=== PATIENT | male | born 1980 | race Caucasian/White ===

== ENCOUNTER 2025-02-19 08:21 | Emergency (ER) | payer OTHER, SELFPAY ==
[2025-02-19] VITALS (7 sets, daily range): BP systolic 118–197; BP diastolic 84–120; PULSE 80–101; RESP 12–18; TEMP 36.4; O2SAT 93–98
--- NOTE | 2025-02-19 08:24 | XR_ITS ---
WS: [id number] Exam: XR chest 1V portable [id number] Date/Time of Exam: 02/19/2025 8:37 AM Reason For Exam: cp No priors. Lungs are clear and fully inflated. Normal cardiomediastinal silhouette. No pleural effusion. Right-sided PICC line ends in the lower one third of the SVC in good position. Normal bony structures. XR/XR chest 1V portable [id number] IMPRESSION: 1. No acute cardiopulmonary finding. 2. Right-sided PICC line in satisfactory position.
--- NOTE | 2025-02-19 08:24 | ECG_ITS ---
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
--- NOTE | 2025-02-19 08:34 | CT_ITS ---
WS: [id number] CT ABDOMEN AND PELVIS NONCONTRAST HISTORY: flank pain, left-sided pain. History states acute renal injury and prostate abscess. TECHNIQUE: Imaging performed through the abdomen and pelvis. Coronal and sagittal reformats are submitted. All CT scans at [facility] use at least one of these dose optimization techniques: automated exposure control; mA and/or kV adjustment per patient size (includes targeted exams where dose is matched to clinical indication); or iterative reconstruction. DLP: 593.32 mGy.cm COMPARISON: None available. Lower thorax: Lung bases are clear. Visualized heart is normal. Small hiatal hernia. Liver: Liver is slightly enlarged. Gallbladder: Mild gallbladder hydrops. No adjacent inflammation. No wall thickening identified on this unenhanced exam. Pancreas: Normal size and attenuation. Normal pancreatic duct. No pancreatitis or mass. Spleen: 14.5 cm in length. Mildly enlarged. Adrenal glands: Normal. No mass. Right kidney: 14.3 cm in length. Markedly enlarged kidney with mild perinephric stranding. Loss of the normal cortical medullary junction. Renal pelvis is not significantly dilated. There is mild periureteral stranding. Left kidney: 14.9 cm in length. Markedly enlarged kidney with perinephric stranding. Loss of the normal cortical medullary junction. Low-attenuation nodule from the posterior kidney measures 1.5 cm. No hydronephrosis. Mild periureteral stranding without dilatation. Aorta: Mild atherosclerosis abdominal aorta with no aneurysm. Calcifications continue into the iliac arteries and mesenteric arteries. Diffuse mesenteric edema. Small shotty retroperitoneal lymph nodes. The largest lymph node on the LEFT at the level of the renal vein measures 1.3 cm. Aortocaval lymph node 1.0 cm. Small amount of free fluid within the pelvis. GI tract: Stomach is distended with fluid. No small bowel obstruction. Diffuse constipation. No evidence for appendicitis. Abdominal wall: Soft tissue anasarca. Very tiny umbilical hernia contains fat. Pelvis: Moderately well distended urinary bladder with mild diffuse wall thickening. Decreased attenuation in the the prostate gland with the largest on the LEFT measuring 2.1 x 1.5 cm. Small bilateral inguinal lymph nodes. There is a superficial nodule on the RIGHT measuring 1.3 cm which may be a lymph node or sebaceous cyst. Urethral portion of the prostate gland is of decreased attenuation. Osseous structures: Unremarkable. CT/CT kidney stone [id number] IMPRESSION: 1. Markedly enlarged edematous kidneys with loss of the normal corticomedullar y junction. Differential includes diabetic nephropathy, bilateral acute pyelone phritis, acute glomerulonephritis and/or interstitial nephritis. 2. No renal obstruction is evident. 3. Diffuse soft tissue anasarca and a small amount of ascites in the pelvis. 4. Retroperitoneal shotty appearing lymph nodes are slightly prominent. These are probably reactive. 5. Decreased attenuation in the LEFT prostate measures 2.1 x 1.5 cm. Suspect p rostate abscess. 6. Mild gallbladder hydrops, probably due to fasting state. No adjacent inflam mation or wall thickening.
--- NOTE | 2025-02-19 08:35 | W.ED.NAVMDI ---
HPI - Nausea/Vomiting/Diarrhea General: Chief complaint: Nausea/Vomiting/Diarrhea Stated complaint: cp Time Seen by Provider: 02/19/25 08:23 Source: patient Mode of arrival: ambulatory Limitations: no limitations History of Present Illness: 44-year-old male who had a recent mission to [place] he was discharged on Monday states that he had had anemia that received blood transfusions he also had acute kidney injury and became septic from a prostate abscess. He has a PICC line in place states has been redoing Rocephin at home he states that overnight has been having nausea vomiting and feeling weak he has had some slight chest pains as well denies any fevers denies any worse improved factors. Associated nausea: Yes Associated symtoms: Reports chest pain and nausea; Denies headache(s) Related Data Home Medications ?Medication ?Instructions ?Recorded ?Confirmed ceftriaxone 2 gram intravenous 2 g IV DAILY 02/19/25 02/19/25 solution ezetimibe 10 mg tablet (Zetia) 10 mg PO DAILY 02/19/25 02/19/25 glucagon 1 mg/0.2 mL subcutaneous 1 mg SUBCUT PRN PRN low blood sugar 02/19/25 02/19/25 syringe (Gvoke PFS 2-Pack) insulin aspart U-100 100 unit/mL See Rx Instructions .Route .COMPLEX 02/19/25 02/19/25 (3 mL) subcutaneous pen insulin glargine 100 unit/mL (3 22 unit SUBCUT DAILY 02/19/25 02/19/25 mL) subcutaneous pen (Lantus Solostar U-100 Insulin) metformin 500 mg tablet 500 mg PO BID 02/19/25 02/19/25 metoclopramide HCl 5 mg tablet 5 mg PO TID PRN Nausea And Vomiting 02/19/25 02/19/25 pantoprazole 40 mg tablet,delayed 40 mg PO QAM 02/19/25 02/19/25 release Previous Rx's ?Medication ?Instructions ?Recorded prochlorperazine maleate 10 mg 10 mg PO Q8H PRN nausea and 02/19/25 tablet (Compazine) vomiting #20 tabs Allergies Allergy/AdvReac Type Severity Reaction Status Date / Time No Known Allergies Allergy Verified 11/11/23 10:32 Review of Systems Const: Denies: fever(s), chills, body aches or change in appetite ENMT: Denies: throat pain or dental pain Card: Reports: chest pain Resp: Denies: dyspnea GI: Reports: abdominal pain, nausea and vomiting; Denies: diarrhea Musc: Denies: neck pain or back pain Skin/Breast: Denies: rash Neuro: Denies: headache(s) PFSH ED PFSH: Social History Smoking and tobacco/nicotine status: current every day tobacco/nicotine user Alcohol intake: never Physical Exam Const: COMMON NORMALS: patient oriented x3 HENMT: COMMON NORMALS: normocephalic and atraumatic HEAD & SCALP: normocephalic and atraumatic Eye: COMMON NORMALS: Equal, round and reactive pupils present and EOMs intact bilaterally PUPIL: Yes Equal, round and reactive pupils present Neck/C-Spine: COMMON NORMALS: full ROM and supple Chest: COMMONS NORMALS: normal inspection of the chest and normal palpation of entire chest wall Resp: COMMON NORMALS: normal respiratory effort, No retractions, No use of accessory muscles and clear to auscultation bilaterally AUSCULTATION: clear to auscultation bilaterally Cardio: COMMON NORMALS: regular rate, regular rhythm and No murmurs present (Cardio) RATE: regular rate RHYTHM: regular rhythm GI: COMMON NORMALS: Normal to inspection, nondistended, normoactive bowel sounds present, Soft to palpation, non-tender and no masses PALPATION: Yes Soft to palpation Extremity: COMMON NORMALS: normal to inspection and full ROM Neuro: COMMON NORMALS: patient oriented x3, moves all extremities and no focal motor deficits Psych: COMMON NORMALS: mental status grossly normal, Normal thought process present and cooperative THOUGHT PROCESS: Normal thought process present Skin: COMMON NORMALS: no rashes or lesions noted and no wounds GENERAL SKIN EXAM: no rashes or lesions noted Course Vital Signs: Vital signs: Vital Signs Temperature 97.6 F 02/19/25 08:25 Pulse Rate 80 02/19/25 12:49 Respiratory Rate 18 02/19/25 12:49 Blood Pressure 118/85 02/19/25 12:49 Pulse Oximetry 98 02/19/25 12:49 Oxygen Delivery Me thod Room Air 02/19/25 10:00 MDM - Nausea/Vomiting/Diarrhea Medical Decision Making Patient presents here with nausea vomiting his creatinine is improved from his recent admission white counts normal no signs of new infection he feels much improved like to go home we will prescribe him Compazine he is to follow-up with his doctors at [place] he is to continue his antibiotics at home return if worsening Medical Records I reviewed the patient's medical records. Lab Data I reviewed the patient's lab results. 02/19/25 08:40 02/19/25 08:40 Radiology Impressions Chest X-Ray 02/19/25 08:24 IMPRESSION: 1. No acute cardiopulmonary finding. 2. Right-sided PICC line in satisfactory position. Abdomen/Pelvis CT 02/19/25 08:34 IMPRESSION: 1. Markedly enlarged edematous kidneys with loss of the normal corticomedullary junction. Differential includes diabetic nephropathy, bilateral acute pyelonephritis, acute glomerulonephritis and/or interstitial nephritis. 2. No renal obstruction is evident. 3. Diffuse soft tissue anasarca and a small amount of ascites in the pelvis. 4. Retroperitoneal shotty appearing lymph nodes are slightly prominent. These are probably reactive. 5. Decreased attenuation in the LEFT prostate measures 2.1 x 1.5 cm. Suspect prostate abscess. 6. Mild gallbladder hydrops, probably due to fasting state. No adjacent inflammation or wall thickening. Laboratory Results WBC 11.03 10^3/uL (3.29-11.43) 02/19/25 08:40 RBC 3.98 10^6/uL (3.85-5.65) 02/19/25 08:40 Hgb 10.00 g/dL (11.27-16.99) L 02/19/25 08:40 Hct 32.1 % (37-53) L 02/19/25 08:40 MCV 80.7 fl (82-101) L 02/19/25 08:40 MCH 25.1 pg (27-33) L 02/19/25 08:40 MCHC 31.2 g/dL (30-55) 02/19/25 08:40 RDW 16.0 % (12.1-15.1) H 02/19/25 08:40 Plt Count 477 10^3/cmm (157-399) H 02/19/25 08:40 MPV 8.3 fL (7.4-10.4) 02/19/25 08:40 Neut % (Auto) 83.2 % 02/19/25 08:40 Lymph % (Auto) 10.2 % 02/19/25 08:40 [place] % (Auto) 4.3 % 02/19/25 08:40 Eos % (Auto) 1.0 % 02/19/25 08:40 Baso % (Auto) 0.4 % 02/19/25 08:40 Neut # (Auto) 9.18 10^3/uL (1.8-7.7) H 02/19/25 08:40 Lymph # (Auto) 1.1 10^3/uL (0.8-4.8) 02/19/25 08:40 [place] # (Auto) 0.5 10^3/uL (0.2-0.9) 02/19/25 08:40 Eos # (Auto) 0.1 10^3/uL (0.0-0.8) 02/19/25 08:40 Baso # (Auto) 0.0 10^3/uL (0.0-0.1) 02/19/25 08:40 Nucleated RBC % (auto) 0 % 02/19/25 08:40 Nucleated RBCs # 0.0 /100WBC 02/19/25 08:40 Sodium 134 mmol/L (136-145) L 02/19/25 08:40 Potassium 4.8 mmol/L (3.5-5.1) 02/19/25 08:40 Chloride 95 mmol/L (98-107) L 02/19/25 08:40 Carbon Dioxide 20 mmol/L (22-29) L 02/19/25 08:40 Anion Gap 23.8 (5-19) H 02/19/25 08:40 BUN 50 mg/dL (6-20) H 02/19/25 08:40 Creatinine 5.4 mg/dL (0.7-1.2) H 02/19/25 08:40 GFR Calculation 11.6 mL/min (90-130) L 02/19/25 08:40 Glucose 216 mg/dL (65-115) H 02/19/25 08:40 Calculated Osmolality 298 mOsm/kg (285-295) H 02/19/25 08:40 Calcium 9.0 mg/dL (8.5-10.5) 02/19/25 08:40 Total Bilirubin 0.4 mg/dL (0.15-1.2) 02/19/25 08:40 AST 11 U/L (0-40) 02/19/25 08:40 ALT 17 U/L (0-41) 02/19/25 08:40 Alkaline Phosphatase 107 U/L (40-130) 02/19/25 08:40 Troponin T Baseline 32 ng/L (0-15) H 02/19/25 08:40 Troponin T 120 Minute 30.01 ng/L (0-15) H 02/19/25 10:30 Delta Troponin T -1.99 ABS# (0-10) L 02/19/25 10:30 Total Protein 8.1 g/dL (6.6-8.7) 02/19/25 08:40 Albumin 3.2 g/dL (3.5-5.2) L 02/19/25 08:40 Globulin 4.9 g/dL (1.3-4.6) H 02/19/25 08:40 Lipase 24 U/L (13-60) 02/19/25 08:40 All radiology interpretation(s) finalized by discharge EKG Data EKG 1: I personally reviewed and interpreted this EKG as follows: EKG interpretation date: 02/19/25 EKG interpretation time: 08:24 Interpretation: nsr hr [address] elevation qrs 94 qtc 419 Discharge Plan Discharge Patient Disposition: Home Clinical Impression: Vomiting Condition: Stable Prescriptions: New prochlorperazine maleate [Compazine] 10 mg tablet 10 mg PO Q8H PRN (Reason: nausea and vomiting) Qty: 20 0RF No Action metformin 500 mg tablet 500 mg PO BID ceftriaxone 2 gram Recon Soln 2 g IV DAILY metoclopramide HCl 5 mg tablet 5 mg PO TID PRN (Reason: Nausea And Vomiting) pantoprazole 40 mg tablet,delayed release (DR/EC) 40 mg PO QAM ezetimibe [Zetia] 10 mg Tablet 10 mg PO DAILY insulin aspart U-100 100 unit/mL (3 mL) insulin pen See Rx Instructions .ROUTE .COMPLEX Rx Instructions: Inject subcutaneously per sliding scale 3 times daily before meals. insulin glargine [Lantus Solostar U-100 Insulin] 100 unit/mL (3 mL) insulin pen 22 unit SUBCUT DAILY Gvoke PFS 2-Pack Syringe 1 mg/0.2 mL syringe 1 mg SUBCUT PRN PRN (Reason: low blood sugar) Discharge Orders: Discharge ED (Routine); Ordered 02/19/25 Ordered By: Tl Sanchez Discharge Diet: Advance as tolerated Discharge Activity: Resume usual activity Patient Instructions: Acute Nausea and Vomiting (ED) Print Language: Belarusian Coding Level of Care Code ED [place] Sorter for Jasvir Ramos
[2025-02-19 08:46] LABS: Basophils % 0.4 %; Eosinophils # 0.1 10^3/uL (0.0-0.8); Hematocrit 32.1 % (37-53); Lymphocytes # 1.1 10^3/uL (0.8-4.8); Lymphocytes % 10.2 %; Mean Corpuscular HGB Conc 31.2 g/dL (30-55); Mean Corpuscular Hemoglobin 25.1 pg (27-33); Mean Corpuscular Volume 80.7 fl (82-101); Mean Platelet Volume 8.3 fL (7.4-10.4); Monocytes # 0.5 10^3/uL (0.2-0.9); Monocytes % 4.3 %; Neutrophils # 9.18 10^3/uL (1.8-7.7); Neutrophils % 83.2 %; Nucleated Red Blood Cells % 0 %; Platelet Count 477 10^3/cmm (157-399); Red Blood Count 3.98 10^6/uL (3.85-5.65); White Blood Count 11.03 10^3/uL (3.29-11.43)
[2025-02-19 09:02] LABS: Troponin(5th) Baseline 32 ng/L (0-15)
[2025-02-19 09:07] LABS: Alanine Aminotransferase 17 U/L (0-41); Albumin Level 3.2 g/dL (3.5-5.2); Alkaline Phosphatase 107 U/L (40-130); Anion Gap 23.8 (5-19); Aspartate Amino Transferase 11 U/L (0-40); Blood Urea Nitrogen 50 mg/dL (6-20); Carbon Dioxide 20 mmol/L (22-29); Chloride 95 mmol/L (98-107); Creatinine Clr Calc Pharmacy 19.3017; Globulin 4.9 g/dL (1.3-4.6); Glomerular Filtration Rate 11.6 mL/min (90-130); Glucose 216 mg/dL (65-115); Lipase 24 U/L (13-60); Osmolality Calculated 298 mOsm/kg (285-295); Potassium 4.8 mmol/L (3.5-5.1); Sodium 134 mmol/L (136-145); Total Bilirubin 0.4 mg/dL (0.15-1.2); Total Protein 8.1 g/dL (6.6-8.7)
[2025-02-19] MEDS: prochlorperazine 10 mg/2 mL Inj IVP (09:10)
[2025-02-19] MEDS: diphenhydrAMINE 50 mg/mL SDV 1mL IVP (09:11)
[2025-02-19] MEDS: morphine 4 mg/mL SDV 1 mL IVP (09:11)
[2025-02-19] MEDS: sodium chloride 0.9% 1,000 ML 999 ML IV (09:18)
[2025-02-19] MEDS: hyDRALAzine 20 mg/mL INJ 1 mL 10 MG IVP (09:58)
--- NOTE | 2025-02-19 10:06 | ECG_ITS ---
[facility] Date: 2025-02-19 Pat Name: Robert Martinez Department: Room: Gender: Male Chief Radiology: : 1980 Requested By: Tl Sanchez Order Number: [id number] Reading MD: ADEEL ODOM Measurements Intervals [place] Rate: 97 P: 70 OK: 160 QRS: -5 QRSD: 109 T: 78 QT: 369 QTc: 470 Interpretive Statements SINUS RHYTHM INCOMPLETE RIGHT BUNDLE BRANCH BLOCK [90+ ms QRS DURATION, TERMINAL R IN V1/V2, 40+ ms S IN I/aVL/V4/V5/V6] Compared to ECG 02/19/2025 08:24:59 No significant changes Electronically Signed On 02-20-2025 23:39:59 CDT by ADEEL ODOM [email or web address] [id number]
[2025-02-19 10:58] LABS: Troponin 5 2HR 30.01 ng/L (0-15)
[2025-02-19 10:59] LABS: Troponin 5 2HR Delta -1.99 ABS# (0-10)
== END 2025-02-19 12:51 | disposition home or self-care (01) ==
PROVIDERS: Emergency Provider Emergency Medicine
DX: R11.10 Vomiting, unspecified (principal); Z79.84 Long term (current) use of oral hypoglycemic drugs; Z79.4 Long term (current) use of insulin; Z72.0 Tobacco use
CPT/HCPCS: 71045; 74176; 80053; 83690; 84484; 85025; 93005; 96374; 96375; 99285; J0360; J0780; J1200; J1642; J2270; J7030

== ENCOUNTER 2025-03-07 09:41 | Emergency (ER) | payer OTHER, SELFPAY ==
[2025-03-07 09:50] VITALS: BP 120/83; PULSE 88; RESP 16; TEMP 36.4; O2SAT 100; BMI 22.8
--- NOTE | 2025-03-07 10:08 | XR_ITS ---
WS: [id number] Abdomen series, Flat and upright 03/07/2025 Clinical Data: constipation Comparison: None. Findings: No free air is seen beneath the diaphragms. No abnormal intra- abdominal masses or calcifications are seen. There is a large amount of fecal material in the descending colon. XR/XR abdomen min 2V [id number] Impression: Large amount of fecal material in the descending colon.
--- NOTE | 2025-03-07 10:09 | XR_ITS ---
WS: [id number] Portable AP upright chest, 03/07/2025 Clinical Data: PICC not functioning Comparison: Portable chest, 02/19/2025 Findings: No nodules, masses or effusions are seen. The heart is normal. The pulmonary vascularity is not increased. No pneumonia or pneumothorax is seen. The right PICC line remains in the same position. XR/XR chest 1V portable [id number] Impression: Negative chest.
--- NOTE | 2025-03-07 10:09 | W.ED.GENADLT ---
HPI - General Adult General: Chief complaint: Abdominal Pain Stated complaint: picc wont flush / constipated Time Seen by Provider: 03/07/25 09:45 Source: patient and family Mode of arrival: wheelchair Limitations: no limitations History of Present Illness: Patient is a 44-year-old male who presents to ED today along with his significant other for two separate complaints. His first complaint is that his PICC line is not functioning. 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 States he received an antibiotic infusion yesterday but significant other states by yesterday evening she cannot get the PICC to draw or flush. Significant other states he is following up with multiple special tests through [facility] including infectious disease, nephrology, urology. Recently had blood work completed. Patient's second complaint is constipation. States he has not had a normal bowel movement in approximately 2 weeks. He is continuing to pass flatulence and small amount of stool nuggets . He has tried [id number] milk of magnesia and stool softeners without improvement. He has not tried any enemas/suppositories. Onset (ago): day(s) Relieving factors: none Exacerbating factors: none Associated symptoms: Reports vomiting (x 1-2); Deny chest pain, dyspnea, headache(s), malaise or rash Treatments prior to arrival: none Related Data Home Medications ?Medication ?Instructions ?Recorded ?Confirmed ceftriaxone 2 gram intravenous 2 g IV DAILY 02/19/25 02/19/25 solution ezetimibe 10 mg tablet (Zetia) 10 mg PO DAILY 02/19/25 02/19/25 glucagon 1 mg/0.2 mL subcutaneous 1 mg SUBCUT PRN PRN low blood sugar 02/19/25 02/19/25 syringe (Gvoke PFS 2-Pack) insulin aspart U-100 100 unit/mL See Rx Instructions .Route .COMPLEX 02/19/25 02/19/25 (3 mL) subcutaneous pen insulin glargine 100 unit/mL (3 22 unit SUBCUT DAILY 02/19/25 02/19/25 mL) subcutaneous pen (Lantus Solostar U-100 Insulin) metformin 500 mg tablet 500 mg PO BID 02/19/25 02/19/25 metoclopramide HCl 5 mg tablet 5 mg PO TID PRN Nausea And Vomiting 02/19/25 02/19/25 pantoprazole 40 mg tablet,delayed 40 mg PO QAM 02/19/25 02/19/25 release Previous Rx's ?Medication ?Instructions ?Recorded prochlorperazine maleate 10 mg 10 mg PO Q8H PRN nausea and 02/19/25 tablet (Compazine) vomiting #20 tabs Allergies Allergy/AdvReac Type Severity Reaction Status Date / Time No Known Allergies Allergy Verified 11/11/23 10:32 Review of Systems Const: Denies: fever(s), chills, body aches, fatigue or malaise Card: Denies: chest pain Resp: Denies: dyspnea GI: Reports: vomiting (x 1-2) and constipation; Denies: abdominal pain, GI cramping, hematochezia or melena : Denies: flank pain or dysuria Musc: Denies: neck pain, back pain, extremity pain, extremity swelling, joint pain or joint swelling Skin/Breast: Denies: rash Neuro: Denies: headache(s), numbness in extremities, weakness in extremities, sensory changes or dizziness PFSH ED PFSH: Social History Smoking and tobacco/nicotine status: current every day tobacco/nicotine user Alcohol intake: never Physical Exam Const: COMMON NORMALS: no acute distress, patient oriented x3, no limitations, alert and well nourished GENERAL APPEARANCE: cooperative ORIENTATION/CONSCIOUSNESS: Yes awake, Yes oriented to person, Yes oriented to place and Yes oriented to time HENMT: COMMON NORMALS: normocephalic and atraumatic HEAD & SCALP: normal to inspection, normocephalic and atraumatic Eye: COMMON NORMALS: no scleral icterus Neck/C-Spine: COMMON NORMALS: full ROM, no lymphadenopathy, supple and no meningeal signs Chest: COMMONS NORMALS: normal inspection of the chest Resp: COMMON NORMALS: normal respiratory effort and clear to auscultation bilaterally AUSCULTATION: clear to auscultation bilaterally Cardio: COMMON NORMALS: regular rate and regular rhythm RATE: regular rate RHYTHM: regular rhythm GI: COMMON NORMALS: Normal to inspection, nondistended, normoactive bowel sounds present, Soft to palpation, non-tender, No hepatosplenomegaly present and no masses INSPECTION: Yes normal to inspection PALPATION: Yes Soft to palpation, No Tenderness to palpation present (GI), No Guarding due to palpation present (GI) and Yes No hepatosplenomegaly present : COMMON NORMALS: Yes no CVA tenderness BLADDER/KIDNEY EXAM: Yes no CVA tenderness Back/Pelvis: COMMON NORMALS: no CVA tenderness and thoracic and lumbar spine normal to inspection Extremity: COMMON NORMALS: normal to inspection GENERAL: Yes normal exam except as noted OTHER: PICC line to R upper arm appears clean/well dressed; will have RN/PICC team assess function Neuro: COMMON NORMALS: patient oriented x3, moves all extremities, no focal motor deficits and no sensory deficits noted SENSORIUM/ORIENTATION: Yes alert, Yes oriented to person, Yes oriented to place and Yes oriented to time MENINGEAL SIGNS: Yes no meningeal signs Skin: COMMON NORMALS: no rashes or lesions noted GENERAL SKIN EXAM: no rashes or lesions noted Course Vital Signs: Vital signs: Vital Signs Temperature 97.6 F 03/07/25 09:50 Pulse Rate 85 03/07/25 12:30 Respiratory Rate 16 03/07/25 09:50 Blood Pressure 120/83 03/07/25 09:50 Pulse Oximetry 99 03/07/25 12:30 Oxygen Delivery Me thod Room Air 03/07/25 12:30 MDM - General Adult Medical Decision Making RN was able to easily draw and flush his PICC line. CXR showing no changes in PICC placement. Patient's vital signs are stable. He clinically appears in no acute distress. XR imaging of his abdomen showing constipation. He was provided an enema here with relief. Blood work overall seems to be slowly improving when compared to previous-here 15 days ago. Significant other states they are currently following up with infectious disease, nephrology, urology. Patient will be allowed discharge with recommendations for otc meds for his constipation (avoid mag citrate/hydroxide due to his renal functions) but should be able to use miralax/colace/prune juice. Return precautions discussed. Medical Records I reviewed the patient's medical records. Lab Data I reviewed the patient's lab results. 03/07/25 10:36 03/07/25 10:36 Radiology Impressions Abdomen X-Ray 03/07/25 10:08 Impression: Large amount of fecal material in the descending colon. Chest X-Ray 03/07/25 10:09 Impression: Negative chest. Laboratory Results WBC 4.76 10^3/uL (3.29-11.43) 03/07/25 10:36 RBC 3.43 10^6/uL (3.85-5.65) L 03/07/25 10:36 Hgb 8.80 g/dL (11.27-16.99) L 03/07/25 10:36 Hct 26.8 % (37-53) L 03/07/25 10:36 MCV 78.1 fl (82-101) L 03/07/25 10:36 MCH 25.7 pg (27-33) L 03/07/25 10:36 MCHC 32.8 g/dL (30-55) 03/07/25 10:36 RDW 17.2 % (12.1-15.1) H 03/07/25 10:36 Plt Count 171 10^3/cmm (157-399) 03/07/25 10:36 MPV 10.5 fL (7.4-10.4) H 03/07/25 10:36 Neut % (Auto) 63.7 % 03/07/25 10:36 Lymph % (Auto) 17.9 % 03/07/25 10:36 Webster % (Auto) 9.2 % 03/07/25 10:36 Eos % (Auto) 8.0 % 03/07/25 10:36 Baso % (Auto) 0.6 % 03/07/25 10:36 Neut # (Auto) 3.03 10^3/uL (1.8-7.7) 03/07/25 10:36 Lymph # (Auto) 0.9 10^3/uL (0.8-4.8) 03/07/25 10:36 Webster # (Auto) 0.4 10^3/uL (0.2-0.9) 03/07/25 10:36 Eos # (Auto) 0.4 10^3/uL (0.0-0.8) 03/07/25 10:36 Baso # (Auto) 0.0 10^3/uL (0.0-0.1) 03/07/25 10:36 Nucleated RBC % (auto) 0 % 03/07/25 10:36 Nucleated RBCs # 0.0 /100WBC 03/07/25 10:36 Sodium 130 mmol/L (136-145) L 03/07/25 10:36 Potassium 4.6 mmol/L (3.5-5.1) 03/07/25 10:36 Chloride 93 mmol/L (98-107) L 03/07/25 10:36 Carbon Dioxide 21 mmol/L (22-29) L 03/07/25 10:36 Anion Gap 20.6 (5-19) H 03/07/25 10:36 BUN 60 mg/dL (6-20) H 03/07/25 10:36 Creatinine 4.4 mg/dL (0.7-1.2) H 03/07/25 10:36 GFR Calculation 14.8 mL/min (90-130) L 03/07/25 10:36 Glucose 147 mg/dL (65-115) H 03/07/25 10:36 Calculated Osmolality 290 mOsm/kg (285-295) 03/07/25 10:36 Calcium 8.9 mg/dL (8.5-10.5) 03/07/25 10:36 Total Bilirubin 0.4 mg/dL (0.15-1.2) 03/07/25 10:36 AST 11 U/L (0-40) 03/07/25 10:36 ALT 18 U/L (0-41) 03/07/25 10:36 Alkaline Phosphatase 135 U/L (40-130) H 03/07/25 10:36 Total Protein 7.5 g/dL (6.6-8.7) 03/07/25 10:36 Albumin 3.6 g/dL (3.5-5.2) 03/07/25 10:36 Globulin 3.9 g/dL (1.3-4.6) 03/07/25 10:36 All radiology interpretation(s) finalized by discharge Discharge Plan Discharge Patient Disposition: Home Clinical Impression: PICC (peripherally inserted central catheter) in place Constipation Qualifiers: Constipation type: unspecified constipation type Qualified Code(s): K59.00 - Constipation, unspecified Condition: Stable Prescriptions: No Action metformin 500 mg tablet 500 mg PO BID ceftriaxone 2 gram Recon Soln 2 g IV DAILY metoclopramide HCl 5 mg tablet 5 mg PO TID PRN (Reason: Nausea And Vomiting) pantoprazole 40 mg tablet,delayed release (DR/EC) 40 mg PO QAM ezetimibe [Zetia] 10 mg Tablet 10 mg PO DAILY insulin aspart U-100 100 unit/mL (3 mL) insulin pen See Rx Instructions .ROUTE .COMPLEX Rx Instructions: Inject subcutaneously per sliding scale 3 times daily before meals. insulin glargine [Lantus Solostar U-100 Insulin] 100 unit/mL (3 mL) insulin pen 22 unit SUBCUT DAILY Gvoke PFS 2-Pack Syringe 1 mg/0.2 mL syringe 1 mg SUBCUT PRN PRN (Reason: low blood sugar) prochlorperazine maleate [Compazine] 10 mg tablet 10 mg PO Q8H PRN (Reason: nausea and vomiting) Qty: 20 0RF Discharge Orders: Discharge ED (Routine); Ordered 03/07/25 Ordered By: Daniella Vazquez Referrals: Sil House MD [Primary Care Provider, Family Practice] Activity Restrictions/Additional Instructions: As we discussed, continue to follow-up with your specialist through [facility] so they can continue to trend blood work. He may use MiraLAX, prune juice, Colace to help with constipation. I would avoid things like milk of magnesia and mag citrate due to his renal disease. PICC line seem to be functioning appropriately here today. Print Language: Wolof Coding Level of Care Code ED Senior Staff Psychologist for Jasvir Ramos
[2025-03-07 10:25] VITALS: PULSE 88; O2SAT 100
--- NOTE | 2025-03-07 10:36 | PC.NURSE ---
pt's PICC flushes and draws blood return well. ED provider notified. pt denies any discomfort with PICC assessment.
[2025-03-07 10:40] LABS: Basophils % 0.6 %; Eosinophils # 0.4 10^3/uL (0.0-0.8); Hematocrit 26.8 % (37-53); Lymphocytes # 0.9 10^3/uL (0.8-4.8); Lymphocytes % 17.9 %; Mean Corpuscular HGB Conc 32.8 g/dL (30-55); Mean Corpuscular Hemoglobin 25.7 pg (27-33); Mean Corpuscular Volume 78.1 fl (82-101); Mean Platelet Volume 10.5 fL (7.4-10.4); Monocytes # 0.4 10^3/uL (0.2-0.9); Monocytes % 9.2 %; Neutrophils # 3.03 10^3/uL (1.8-7.7); Neutrophils % 63.7 %; Nucleated Red Blood Cells % 0 %; Platelet Count 171 10^3/cmm (157-399); Red Blood Count 3.43 10^6/uL (3.85-5.65); Red Cell Distribution Width 17.2 % (12.1-15.1); White Blood Count 4.76 10^3/uL (3.29-11.43)
[2025-03-07 11:00] LABS: Alanine Aminotransferase 18 U/L (0-41); Albumin Level 3.6 g/dL (3.5-5.2); Alkaline Phosphatase 135 U/L (40-130); Anion Gap 20.6 (5-19); Aspartate Amino Transferase 11 U/L (0-40); Blood Urea Nitrogen 60 mg/dL (6-20); Calcium 8.9 mg/dL (8.5-10.5); Carbon Dioxide 21 mmol/L (22-29); Chloride 93 mmol/L (98-107); Globulin 3.9 g/dL (1.3-4.6); Glomerular Filtration Rate 14.8 mL/min (90-130); Glucose 147 mg/dL (65-115); Osmolality Calculated 290 mOsm/kg (285-295); Potassium 4.6 mmol/L (3.5-5.1); Sodium 130 mmol/L (136-145); Total Bilirubin 0.4 mg/dL (0.15-1.2); Total Protein 7.5 g/dL (6.6-8.7)
[2025-03-07 12:30] VITALS: PULSE 85; O2SAT 99
[2025-03-07 13:30] VITALS: BP 138/79; PULSE 86; O2SAT 98
== END 2025-03-07 13:33 | disposition home or self-care (01) ==
PROVIDERS: Emergency Provider Physician Assistant; PCP Family Medicine
DX: K59.00 Constipation, unspecified (principal); Z79.84 Long term (current) use of oral hypoglycemic drugs; Z79.4 Long term (current) use of insulin; Z72.0 Tobacco use
CPT/HCPCS: 71045; 74019; 80053; 85025; 99284

== ENCOUNTER 2025-03-18 11:51 | Outpatient (CLI) | payer OTHER, SELFPAY ==
[2025-03-18 13:06] LABS: Basophils % 0.7 %; Eosinophils # 0.2 10^3/uL (0.0-0.8); Eosinophils % 6.7 %; Hematocrit 38.9 % (37-53); Lymphocytes % 33.8 %; Mean Corpuscular HGB Conc 32.4 g/dL (30-55); Mean Corpuscular Hemoglobin 26.1 pg (27-33); Mean Corpuscular Volume 80.7 fl (82-101); Mean Platelet Volume 8.9 fL (7.4-10.4); Monocytes # 0.1 10^3/uL (0.2-0.9); Monocytes % 3.7 %; Neutrophils # 1.64 10^3/uL (1.8-7.7); Neutrophils % 54.8 %; Nucleated Red Blood Cells % 0 %; Platelet Count 183 10^3/cmm (157-399); Red Blood Count 4.82 10^6/uL (3.85-5.65); Red Cell Distribution Width 18.4 % (12.1-15.1); White Blood Count 2.99 10^3/uL (3.29-11.43)
[2025-03-18 13:30] LABS: Alanine Aminotransferase 13 U/L (0-41); Albumin Level 3.9 g/dL (3.5-5.2); Alkaline Phosphatase 81 U/L (40-130); Aspartate Amino Transferase 10 U/L (0-40); Blood Urea Nitrogen 60 mg/dL (6-20); C Reactive Protein 5.3 mg/L (0.0-4.9); Calcium 8.7 mg/dL (8.5-10.5); Carbon Dioxide 21 mmol/L (22-29); Chloride 99 mmol/L (98-107); Globulin 3.1 g/dL (1.3-4.6); Glomerular Filtration Rate 19.9 mL/min (90-130); Glucose 190 mg/dL (65-115); Osmolality Calculated 300 mOsm/kg (285-295); Sodium 134 mmol/L (136-145); Total Bilirubin 0.2 mg/dL (0.15-1.2)
== END 2025-03-18 11:52 | disposition home or self-care (01) ==
LOC: LAB 11:58
PROVIDERS: PCP Family Medicine; Visit Provider Family Medicine
DX: N10 Acute pyelonephritis (principal); B96.89 Other specified bacterial agents as the cause of diseases classified elsewhere
CPT/HCPCS: 80053; 85025; 86140

== ENCOUNTER 2025-03-31 15:26 | Oncology outpatient (recurring) (ONCR) | payer OTHER, SELFPAY ==
[2025-03-31 16:55] LABS: Basophils % 0.7 %; Eosinophils # 0.3 10^3/uL (0.0-0.8); Eosinophils % 6.1 %; Hematocrit 27.6 % (37-53); Lymphocytes # 1.9 10^3/uL (0.8-4.8); Lymphocytes % 40.3 %; Mean Corpuscular HGB Conc 31.9 g/dL (30-55); Mean Corpuscular Hemoglobin 26.1 pg (27-33); Mean Corpuscular Volume 81.9 fl (82-101); Mean Platelet Volume 9.2 fL (7.4-10.4); Monocytes # 0.3 10^3/uL (0.2-0.9); Monocytes % 7.2 %; Neutrophils # 2.07 10^3/uL (1.8-7.7); Nucleated Red Blood Cells % 0 %; Platelet Count 241 10^3/cmm (157-399); Red Blood Count 3.37 10^6/uL (3.85-5.65); Red Cell Distribution Width 17.1 % (12.1-15.1); Reticulocyte % 2.1 % (0.5-2.0); White Blood Count 4.59 10^3/uL (3.29-11.43)
[2025-03-31 17:12] LABS: Alanine Aminotransferase 20 U/L (0-41); Alkaline Phosphatase 74 U/L (40-130); Anion Gap 19.6 (5-19); Aspartate Amino Transferase 13 U/L (0-40); Blood Urea Nitrogen 55 mg/dL (6-20); Calcium 9.2 mg/dL (8.5-10.5); Carbon Dioxide 20 mmol/L (22-29); Chloride 103 mmol/L (98-107); Globulin 3.7 g/dL (1.3-4.6); Glucose 101 mg/dL (65-115); Immunoglobulin IGA 172 mg/dL (70-400); Immunoglobulin IGG 1613 mg/dL (700-1600); Immunoglobulin IGM 76 mg/dL (40-230); Lactate Dehydrogenase 168 U/L (135-225); Osmolality Calculated 301 mOsm/kg (285-295); Potassium 4.6 mmol/L (3.5-5.1); Sodium 138 mmol/L (136-145); Total Bilirubin 0.3 mg/dL (0.15-1.2); Total Protein 7.7 g/dL (6.6-8.7)
[2025-03-31 17:28] LABS: Ferritin 602 ng/mL (30-400); Iron 78 ug/dL (59-158); Percent Saturation 28.7 % (20-50); Total Iron Binding Capacity 271 mcg/dl; Unsaturated Iron Binding 193 ug/dL (112-347)
[2025-03-31 17:44] LABS: Vitamin B12 471 pg/mL (232-1245)
[2025-04-02 04:09] LABS: PROTEIN, TOTAL 7.1 g/dL (6.1-8.1)
[2025-04-03 08:30] LABS: ABNORMAL PROTEIN BAND 1 0.2 g/dL (NONE DETECTED); ABNORMAL PROTEIN BAND 2 0.1 g/dL (NONE DETECTED); ALBUMIN 3.9 g/dL (3.8-4.8); ALPHA 1 GLOBULIN 0.4 g/dL (0.2-0.3); ALPHA 2 GLOBULIN 0.6 g/dL (0.5-0.9); BETA 1 GLOBULIN 0.4 g/dL (0.4-0.6); BETA 2 GLOBULIN 0.4 g/dL (0.2-0.5); GAMMA GLOBULIN 1.4 g/dL (0.8-1.7)
[2025-04-04 12:44] LABS: Erythropoietin 20.6 mIU/mL (2.6-18.5)
== END 2025-04-07 23:59 | disposition home or self-care (01) ==
PROVIDERS: PCP Family Medicine; Visit Provider Internal Medicine
DX: Z53.9 Procedure and treatment not carried out, unspecified reason (principal); D64.9 Anemia, unspecified
CPT/HCPCS: 36415; 80053; 82607; 82668; 82728; 82746; 82784; 83010; 83540; 83550; 83615; 84155; 84165; 85025; 85045; 86334; 99204

== ENCOUNTER 2025-04-10 15:51 | Oncology outpatient (recurring) (ONCR) | payer OTHER, SELFPAY | END 2025-05-08 23:59 | disposition home or self-care (01) | PROVIDERS: PCP Family Medicine; Visit Provider Internal Medicine | DX: D64.9 Anemia, unspecified (principal); R03.0 Elevated blood-pressure reading, without diagnosis of hypertension; N19 Unspecified kidney failure; E11.9 Type 2 diabetes mellitus without complications | CPT/HCPCS: 99213 ==

== ENCOUNTER 2025-04-27 16:58 | Emergency (ER) | payer OTHER, SELFPAY ==
[2025-04-27 16:58] VITALS: BP 101/66; PULSE 133; RESP 16; TEMP 36.4; O2SAT 99; BMI 25.8
--- OUTSIDE RECORDS SUMMARY | 2025-04-27 17:03 | XMS_ITS | Continuity of Care Document ---
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 It does not include entries that were removed or entered in error. 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) Active Condition [place] [facility] Erectile dysfunction Active Condition [place] [facility] Exposure to potentially hazardous substance ([facility] [id number]) Active Condition Jan 08 Entered By: CINTHIA PIKE Comment: Entered automatically through [facility] Problem List documentation program [facility] Routine Medical Exam Active Condition [facility] Diagnosis: ICD-10-CM E11.9 Type 2 diabetes mellitus without complications Active Diagnosis [facility] Diagnosis: ICD-10-CM N39.0 Urinary tract infection, site not specified Active Diagnosis [facility] Diagnosis: ICD-10-CM Z77.29 Contact with and exposure to other hazardous substances Active Diagnosis [facility] Medications Combined list of outpatient medications from Department of Defense and Veterans Affairs facilities.Medications provided include 1) outpatient medications from the last 15 months, and 2) patient-reported medications. Medication Details Route Status Patient Instructions Prescription Expires Prescription Number Last Dispense Date Ordering Provider Order Date Order Qty Source EMPAGLIFLOZ IN 25MG TAB TAKE ONE-HALF TABLET BY MOUTH EVERY MORNING FOR DIABETES ORAL ACTIVE 03/18/2026 [id number] MERLENE FELIPE 2024 [address] [place] [facility] EMPAGLIFLOZ IN 25MG TAB TAKE ONE TABLET BY MOUTH ONCE A DAY FOR DIABETES ORAL DISCONT INUED (EDIT) 02/04/2026 [id number] 5 MARYLU HENDERSON W [address] [place] [address] [facility] EZETIMIBE 10MG TAB TAKE ONE TABLET BY MOUTH ONCE A DAY FOR HIGH CHOLESTE ROL ORAL DISCONT INUED BY PROVIDE R 02/04/2026 [id number] 5 MARYLU HENDERSON [address] [place] [address] [facility] FERROUS GLUCONATE 324MG TAB TAKE ONE TABLET BY MOUTH TWICE A DAY WITH MEALS FOR IRON DEFICIEN CY ANEMIA ORAL ACTIVE 01/21/2026 [id number] 5 MARYLU HENDERSON 2024 200 [facility] FERROUS SO4 325MG TAB TAKE ONE TABLET BY MOUTH TWICE A DAY WITH MEALS FOR IRON DEFICIEN CY ANEMIA ORAL DISCONT INUED BY PROVIDE R 01/07/2026 [id number] 5 MEENAKSHI CROOK T [address] [place] [facility] INSULIN,ASP ART,HUMAN (EQV-NOVOLO G) 100 UNIT/ML,FLE XPEN,3ML INJECT 10 UNITS UNDER THE SKIN THREE TIMES A DAY BEFORE MEALS FOR DIABETES ADMINIST ER 10 MINUTES BEFORE FOOD DIRECTED . REFRIGER ATE UN-OPENE D PENS. DISCARD CARTRIDG E 28 DAYS AFTER OPENING. SUBCUT ANEOUS ACTIVE 01/21/2026 [id number] 5 MARYLU HENDERSON 2024 5 [facility] INSULIN,ASP ART,HUMAN (EQV-NOVOLO G) 100 UNIT/ML,FLE XPEN,3ML INJECT 8 UNITS UNDER THE SKIN THREE TIMES A DAY BEFORE MEALS FOR DIABETES ADMINIST ER 10 MINUTES BEFORE FOOD DIRECTED . REFRIGER ATE UN-OPENE D PENS. DISCARD CARTRIDG E 28 DAYS AFTER OPENING. SUBCUT ANEOUS DISCONT INUED (EDIT) 01/08/2026 [id number] 5 ARMAAN,WI LLIAM T 2024 [address] [place] [facility] INSULIN,GLA RGINE,HUMAN 100 UNIT/ML INJ,SOLOSTA R,3ML INJECT 20 UNITS OF 100UNIT/ ML UNDER THE SKIN ONCE A DAY FOR DIABETES ADMINIST ER AT SAME TIME EACH DAY DIRECTED . DISCARD ANY OPEN CARTRIDG E AFTER 28 DAYS. DOSE ADJUSTME NT. NO EXTRA INSULIN NEEDED AT THIS TIME. ADMINIST ER AT SAME TIME EACH DAY DIRECTED . DISCARD ANY OPEN CARTRIDG E AFTER 28 DAYS. DOSE ADJUSTME NT. NO EXTRA INSULIN NEEDED AT THIS TIME. SUBCUT ANEOUS ACTIVE 01/08/2026 [id number] 5 MEENAKSHI CROOKIAOmid T 2024 5 [place] [facility] INSULIN,GLA RGINE,HUMAN 100 UNIT/ML INJ,SOLOSTA R,3ML INJECT 15 UNITS UNDER THE SKIN ONCE A DAY FOR DIABETES ADMINIST ER AT SAME TIME EACH DAY DIRECTED . DISCARD ANY OPEN CARTRIDG E AFTER 28 DAYS. SUBCUT ANEOUS DISCONT INUED (EDIT) 01/07/2026 [id number] 5 MEENKASHI CROOK T 2024 5 [place] [facility] METFORMIN HCL 1000MG TAB TAKE ONE-HALF TABLET BY MOUTH TWICE A DAY WITH MEALS FOR DIABETES TAKE WITH FOOD. AVOID ALCOHOL. DISCONTI NUE BEFORE GETTING XRAY DYE. ORAL DISCONT INUED BY PROVIDE R 01/07/2026 [id number] 5 MEENAKSHI CROOK T [address] [place] [facility] METFORMIN HCL 500MG 24HR TAB,SA TAKE TWO TABLETS BY MOUTH TWICE A DAY WITH MEALS FOR DIABETES TAKE WITH FOOD. AVOID ALCOHOL. DISCONTI NUE BEFORE GETTING XRAY DYE. ORAL DISCONT INUED BY PROVIDE R 01/21/2026 [id number] 5 MARYLU HENDERSON W 2024 360 [facility] NICOTINE POLACRILEX 2MG MINI LOZENGE DISSOLVE 1 LOZENGE BY MOUTH EVERY 4 HOURS NEEDED FOR TOBACCO CESSATIO N .DO NOT SMOKE WHILE USING THIS MEDICATI ON. ORAL ACTIVE 02/04/2026 [id number] 5 MARYLU HENDERSON W 2024 81 [facility] PANTOPRAZOL E NA 40MG TAB,EC TAKE ONE TABLET BY MOUTH EVERY MORNING BEFORE A MEAL FOR GASTROES OPHAGEAL REFLUX DISEASE TAKE 30 MINUTES BEFORE MEAL(S) ORAL SUSPEND ED 01/07/2026 [id number] 5 MEENAKSHI CROOK T [address] [place] [facility] ROSUVASTATI N CA 10MG TAB TAKE ONE TABLET BY MOUTH EVERY EVENING FOR HIGH CHOLESTE ROL ORAL SUSPEND ED 03/18/2026 [id number] 5 MERLENE FELIPE 2024 [address] [place] [facility] Allergies, Adverse Reactions, Alerts Combined list of allergies from Department of Defense and Veterans Affairs facilities. It does not include entries that were removed or entered in error. Substance Category Reaction Severity Reaction type Status Date Reported Comments Source POISON ANDERSON Propensity to adverse reaction (finding) Urticaria active 0 [facility] Immunizations Combined list of available immunizations from the Department of Defense and Veterans Affairs facilities. 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 Source TDAP 2018 115 complet [facility] INFLUENZA, UNSPECIFIED FORMULATION 2009 88 complet [facility] TDAP 6 2009 115 complet ed HISTORICA L INFORMATI ON - FROM OTHER [facility] TD (ADULT), 2 LF TETANUS TOXOID, PRESERVATIVE FREE, ADSORBED 5 1997 09 complet ed [facility]ISTORICA L INFORMATI ON - FROM OTHER [facility] DTAP 4 1987 20 complet ed HISTORICA L INFORMATI ON - FROM OTHER [facility], [facility] TRIVALENT OPV 1987 02 complet ed HISTORICA L INFORMATI ON - FROM OTHER [facility] DTAP 3 1986 20 complet ed HISTORICA L INFORMATI ON - FROM OTHER [facility] TRIVALENT OPV 3 1986 02 complet ed HISTORICA L INFORMATI ON - FROM OTHER [facility] DTAP 2 1986 20 complet ed HISTORICA L INFORMATI ON - FROM OTHER [facility], [facility] TRIVALENT OPV 2 1986 02 complet ed HISTORICA L INFORMATI ON - FROM OTHER REGISTRY, [facility] DTAP 1 1986 20 complet ed HISTORICA L INFORMATI ON - FROM OTHER REGISTRY, [facility] TRIVALENT OPV 1 1986 02 complet ed HISTORICA L INFORMATI ON - FROM OTHER REGISTRY, [facility] MMR 1 1986 03 complet ed HISTORICA L INFORMATI ON - FROM OTHER REGISTRY, [facility] Results Combined list of recent chemistry, hematology and other laboratory results from Department of Defense and Veterans Affairs, ranging from 15 months to all on record, depending upon the facility. Order Name Results Value Reference Range Date Interpretation Specimen Comments Source CYSTATIN C EGFR PANELS ([facility] ) CYSTATIN C [MASS/VOLUME ] IN SERUM OR PLASMA 3.30 mg/L 0.57 - 1.80 03/11 H Specimen Type: PLASMA Comment: Choice of which of the reported eGFR values to use depends on the clinical situation. For example, for patients with severe muscle wasting or reduced muscle mass, eGFR calculated using the 2012 cystatin equation may be preferred. Ordering Provider: VASU HENDERSON Report Released Date/Time: Feb 03, 2025 12:03 PM Reporting Lab: [facility] [address] [place] [phone] Performing Lab: [id number] [place] [address] [facility] CYSTATIN C EGFR PANELS ([facility] ) CKD-EPI CYSTATIN C (2012) 17.0 60 03/11 Specimen Type: PLASMA Comment: Choice of which of the reported eGFR values to use depends on the clinical situation. For example, for patients with severe muscle wasting or reduced muscle mass, eGFR calculated using the 2012 cystatin equation may be preferred. Ordering Provider: VASU HENDERSON Report Released Date/Time: Feb 03, 2025 12:03 PM Reporting Lab: [facility] [address] [place] [phone] Performing Lab: [address] [address] [facility] CYSTATIN C EGFR PANELS ([facility] ) CKD-EPI CREAT-CYSC (2020) 18.0 60 03/11 Specimen Type: PLASMA Comment: Choice of which of the reported eGFR values to use depends on the clinical situation. For example, for patients with severe muscle wasting or reduced muscle mass, eGFR calculated using the 2012 cystatin equation may be preferred. Ordering Provider: VASU HENDERSON Report Released Date/Time: Feb 03, 2025 12:03 PM Reporting Lab: [facility] [address] [facility] [address] Performing Lab: [facility] [address] [facility] [address] [facility] CYSTATIN C EGFR PANELS ([facility] ) CREATININE [MASS/VOLUME ] IN SERUM OR PLASMA 3.53 mg/dL 0.7 - 1.3 03/11 H Specimen Type: PLASMA Comment: Choice of which of the reported eGFR values to use depends on the clinical situation. For example, for patients with severe muscle wasting or reduced muscle mass, eGFR calculated using the 2011 cystatin equation may be preferred. Ordering Provider: VASU HENDERSON W Report Released Date/Time: Feb 03, 2025 12:03 PM Reporting Lab: [facility] [address] [facility] [address] Performing Lab: [facility] [address] [facility] [address] [facility] IRON IRON [MASS/VOLUME ] IN SERUM OR PLASMA 42 ug/dL 65 - 175 03/11 L Specimen Type: PLASMA No comment entered. Ordering Provider: VASU HENDERSON W Report Released Date/Time: Feb 03, 2025 12:03 PM Reporting Lab: [place] [facility] [address] [place] [address] Performing Lab: [place] [facility] [address] [facility] [address] [facility] CHOLESTERO L PANEL (PB) CHOLESTEROL [MASS/VOLUME ] IN SERUM OR PLASMA 134 mg/dL 0 - 200 03/11 Specimen Type: PLASMA No comment entered. Ordering Provider: VASU HENDERSON W Report Released Date/Time: Feb 03, 2025 12:03 PM Reporting Lab: [place] [facility] [address] [place] [address] Performing Lab: [place] [facility] [address] [place] [address] [facility] CHOLESTERO L PANEL (PB) TRIGLYCERIDE [MASS/VOLUME ] IN SERUM OR PLASMA 106 mg/dL 0 - 150 03/11 Specimen Type: PLASMA No comment entered. Ordering Provider: VASU HENDERSON W Report Released Date/Time: Feb 03, 2025 12:03 PM Reporting Lab: [place] [facility] [address] [place] [address] Performing Lab: [place] [facility] [address] [place] [address] [facility] CHOLESTERO L PANEL (PB) CHOLESTEROL IN LDL [MASS/VOLUME ] IN SERUM OR PLASMA BY CALCULATION 75.2 mg/dL 03/11 Specimen Type: PLASMA No comment entered. Ordering Provider: VASU HENDERSON W Report Released Date/Time: Feb 03, 2025 12:03 PM Reporting Lab: [place] [facility] [address] [place] [address] Performing Lab: [place] [facility] [address] [place] [address] [facility] CHOLESTERO L PANEL (PB) CHOLESTEROL IN HDL [MASS/VOLUME ] IN SERUM OR PLASMA 37.6 mg/dL 40 03/11 L Specimen Type: PLASMA No comment entered. Ordering Provider: VASU HENDERSON W Report Released Date/Time: Feb 03, 2025 12:03 PM Reporting Lab: [place] [facility] [address] [place] [address] Performing Lab: [place] [facility] [address] [place] [address] [facility] CHOLESTERO L PANEL (PB) CHOLESTEROL IN HDL/CHOLESTE ROL.TOTAL [MASS RATIO] IN SERUM OR PLASMA 28.1 25 03/11 Specimen Type: PLASMA No comment entered. Ordering Provider: VASU HENDERSON W Report Released Date/Time: Feb 03, 2025 12:03 PM Reporting Lab: [place] [facility] [address] [place] [address] Performing Lab: [place] [facility] [address] [place] [address] [facility] MAGNESIUM MAGNESIUM [MASS/VOLUME ] IN SERUM OR PLASMA 2.38 mg/dL 1.6 - 2.6 03/11 Specimen Type: PLASMA No comment entered. Ordering Provider: VASU HENDERSON W Report Released Date/Time: Feb 03, 2025 12:03 PM Reporting Lab: [place] [facility] [address] [place] [address] Performing Lab: [place] [facility] [address] [place] [address] [facility] DIRECT LDL (MA-PB) CHOLESTEROL IN LDL [MASS/VOLUME ] IN SERUM OR PLASMA BY DIRECT ASSAY 87.1 mg/dL 0 - 99.9 03/11 Specimen Type: PLASMA No comment entered. Ordering Provider: VASU HENDERSON W Report Released Date/Time: Feb 03, 2025 12:03 PM Reporting Lab: [place] [facility] [address] [place] [address] Performing Lab: [place] [facility] [address] [place] [address] [facility] CBC LEUKOCYTES [#/VOLUME] IN BLOOD BY AUTOMATED COUNT 6.3 10*3/u L 3.6 - 11.2 03/11 Specimen Type: BLOOD No comment entered. Ordering Provider: VASU HENDERSON W Report Released Date/Time: Feb 03, 2025 12:03 PM Reporting Lab: [place] [facility] [address] [place] [address] Performing Lab: [place] [facility] [address] [place] [address] [facility] CBC ERYTHROCYTES [#/VOLUME] IN BLOOD BY AUTOMATED COUNT 3.41 10*6/u L 4.10 - 5.70 03/11 L Specimen Type: BLOOD No comment entered. Ordering Provider: VASU HENDERSON W Report Released Date/Time: Feb 03, 2025 12:03 PM Reporting Lab: [place] [facility] [address] [place] [address] Performing Lab: [place] [facility] [address] [place] [address] [facility] CBC HEMOGLOBIN [MASS/VOLUME ] IN BLOOD 8.7 g/dL 13.1 - 16.8 03/11 L Specimen Type: BLOOD No comment entered. Ordering Provider: VASU HENDERSON W Report Released Date/Time: Feb 03, 2025 12:03 PM Reporting Lab: [place] [facility] [address] [place] [address] Performing Lab: [place] [facility] [address] [place] [address] [facility] CBC HEMATOCRIT [VOLUME FRACTION] OF BLOOD 27.1 38.2 - 48.4 03/11 L Specimen Type: BLOOD No comment entered. Ordering Provider: VASU HENDERSON W Report Released Date/Time: Feb 03, 2025 12:03 PM Reporting Lab: [place] [facility] [address] [place] [address] Performing Lab: [place] [facility] [address] [place] [address] [facility] CBC MCV [ENTITIC VOLUME] BY AUTOMATED COUNT 79.5 fL 80.0 - 100.0 03/11 L Specimen Type: BLOOD No comment entered. Ordering Provider: VASU HENDERSON W Report Released Date/Time: Feb 03, 2025 12:03 PM Reporting Lab: [place] [facility] [address] [place] [address] Performing Lab: [place] [facility] [address] [place] [address] [facility] CBC MCH [ENTITIC MASS] BY AUTOMATED COUNT 25.5 pg 27.0 - 34.0 03/11 L Specimen Type: BLOOD No comment entered. Ordering Provider: VASU HENDERSON W Report Released Date/Time: Feb 03, 2025 12:03 PM Reporting Lab: [place] [facility] [address] [place] [address] Performing Lab: [place] [facility] [address] [place] [address] [facility] CBC MCHC [MASS/VOLUME ] BY AUTOMATED COUNT 32.1 g/dL 33.0 - 36.0 03/11 L Specimen Type: BLOOD No comment entered. Ordering Provider: VASU HENDERSON W Report Released Date/Time: Feb 03, 2025 12:03 PM Reporting Lab: [place] [facility] [address] [place] [address] Performing Lab: [place] [facility] [address] [place] [address] [facility] CBC PLATELETS [#/VOLUME] IN BLOOD BY AUTOMATED COUNT 263 10*3/u L 150 - 400 03/11 Specimen Type: BLOOD No comment entered. Ordering Provider: VASU HENDERSON W Report Released Date/Time: Feb 03, 2025 12:03 PM Reporting Lab: [place] [facility] [address] [place] [address] Performing Lab: [place] [facility] [address] [place] [address] [facility] CBC PLATELET MEAN VOLUME [ENTITIC VOLUME] IN BLOOD BY AUTOMATED COUNT 10.3 fL 7.5 - 11.2 03/11 Specimen Type: BLOOD No comment entered. Ordering Provider: VASU HENDERSON W Report Released Date/Time: Feb 03, 2025 12:03 PM Reporting Lab: [place] [facility] [address] [place] [address] Performing Lab: [place] [facility] [address] [place] [address] [facility] CBC ERYTHROCYTE DISTRIBUTION WIDTH [RATIO] BY AUTOMATED COUNT 18.0 11.8 - 15.1 03/11 H Specimen Type: BLOOD No comment entered. Ordering Provider: VASU HENDERSON W Report Released Date/Time: Feb 03, 2025 12:03 PM Reporting Lab: [place] [facility] [address] [place] [address] Performing Lab: [place] [facility] [address] [place] [address] [facility] CBC LYMPHOCYTES/ 100 LEUKOCYTES IN BLOOD BY AUTOMATED COUNT 20.7 03/11 Specimen Type: BLOOD No comment entered. Ordering Provider: VASU HENDERSON W Report Released Date/Time: Feb 03, 2025 12:03 PM Reporting Lab: [place] [facility] [address] [place] [address] Performing Lab: [place] [facility] [address] [place] [address] [place] [facility] CBC MONOCYTES/10 0 LEUKOCYTES IN BLOOD BY AUTOMATED COUNT 7.3 03/11 Specimen Type: BLOOD No comment entered. Ordering Provider: VASU HENDERSON W Report Released Date/Time: Feb 03, 2025 12:03 PM Reporting Lab: [place] [facility] [address] [place] [address] Performing Lab: [place] [facility] [address] [place] [address] [facility] CBC NEUTROPHILS/ 100 LEUKOCYTES IN BLOOD BY AUTOMATED COUNT 61.6 03/11 Specimen Type: BLOOD No comment entered. Ordering Provider: VASU HENDERSON W Report Released Date/Time: Feb 03, 2025 12:03 PM Reporting Lab: [place] [facility] [address] [place] [address] Performing Lab: [place] [facility] [address] [place] [address] [place] [facility] CBC EOSINOPHILS/ 100 LEUKOCYTES IN BLOOD BY AUTOMATED COUNT 9.0 03/11 Specimen Type: BLOOD No comment entered. Ordering Provider: VASU HENDERSON W Report Released Date/Time: Feb 03, 2025 12:03 PM Reporting Lab: [place] [facility] [address] [place] [address] Performing Lab: [place] [facility] [address] [place] [address] [facility] CBC BASOPHILS/10 0 LEUKOCYTES IN BLOOD BY AUTOMATED COUNT 0.8 03/11 Specimen Type: BLOOD No comment entered. Ordering Provider: VASU HENDERSON W Report Released Date/Time: Feb 03, 2025 12:03 PM Reporting Lab: [place] [facility] [address] [place] [address] Performing Lab: [place] [facility] [address] [place] [address] [facility] CBC LYMPHOCYTES [#/VOLUME] IN BLOOD BY AUTOMATED COUNT 1.31 10*3/u L 0.77 - 4.50 03/11 Specimen Type: BLOOD No comment entered. Ordering Provider: VASU HENDERSON W Report Released Date/Time: Feb 03, 2025 12:03 PM Reporting Lab: [place] [facility] [address] [place] [address] Performing Lab: [place] [facility] [address] [place] [address] [facility] CBC MONOCYTES [#/VOLUME] IN BLOOD BY AUTOMATED COUNT 0.46 10*3/u L 0.19 - 0.8 03/11 Specimen Type: BLOOD No comment entered. Ordering Provider: VASU HENDERSON W Report Released Date/Time: Feb 03, 2025 12:03 PM Reporting Lab: [place] [facility] [address] [place] [id number] Performing Lab: [place] [facility] [address] [place] [phone] [facility] CBC NEUTROPHILS [#/VOLUME] IN BLOOD BY AUTOMATED COUNT 3.90 10*3/u L 2.10 - 8.00 03/11 Specimen Type: BLOOD No comment entered. Ordering Provider: VASU HENDERSON W Report Released Date/Time: Feb 03, 2025 12:03 PM Reporting Lab: [place] [facility] [address] [place] [address] Performing Lab: [place] [facility] [address] [place] [address] [facility] CBC EOSINOPHILS [#/VOLUME] IN BLOOD BY AUTOMATED COUNT 0.57 10*3/u L 0.00 - 0.60 03/11 Specimen Type: BLOOD No comment entered. Ordering Provider: VASU HENDERSON W Report Released Date/Time: Feb 03, 2025 12:03 PM Reporting Lab: [place] [facility] [address] [place] [address] Performing Lab: [place] [facility] [address] [place] [address] [facility] CBC BASOPHILS [#/VOLUME] IN BLOOD BY AUTOMATED COUNT 0.05 10*3/u L 0.00 - 0.20 03/11 Specimen Type: BLOOD No comment entered. Ordering Provider: VASU HENDERSON W Report Released Date/Time: Feb 03, 2025 12:03 PM Reporting Lab: [place] [facility] [address] [place] [address] Performing Lab: [place] [facility] [address] [place] [address] [facility] CBC IMMATURE GRANULOCYTES /100 LEUKOCYTES IN BLOOD BY AUTOMATED COUNT 0.6 03/11 Specimen Type: BLOOD No comment entered. Ordering Provider: VASU HENDERSON W Report Released Date/Time: Feb 03, 2025 12:03 PM Reporting Lab: [place] [facility] [address] [place] [address] Performing Lab: [place] [facility] [address] [place] [address] [facility] CBC IMMATURE GRANULOCYTES [#/VOLUME] IN BLOOD BY AUTOMATED COUNT 0.04 10*3/u L 0.00 - 0.05 03/11 Specimen Type: BLOOD No comment entered. Ordering Provider: VASU HENDERSON W Report Released Date/Time: Feb 03, 2025 12:03 PM Reporting Lab: [place] [place] [facility] [address] [place] [address] Performing Lab: [place] [facility] [address] [place] [address] [facility] VITAMIN D, 25-HYDROXY 25-HYDROXYVI TAMIN D3 [MASS/VOLUME ] IN SERUM OR PLASMA 40.3 ng/mL 30 - 96 03/11 Specimen Type: SERUM No comment entered. Ordering Provider: VASU HENDERSON W Report Released Date/Time: Feb 03, 2025 12:03 PM Reporting Lab: [place] [facility] [address] [place] [address] Performing Lab: [place] [facility] [address] [place] [address] [facility] URINE ALBUMIN PROFILE-ih (PB) ALBUMIN [MASS/VOLUME ] IN URINE 114.96 mg/L 03/11 Specimen Type: URINE No comment entered. Ordering Provider: VASU HENDERSON W Report Released Date/Time: Feb 03, 2025 12:03 PM Reporting Lab: [place] [facility] [address] [place] [address] Performing Lab: [place] [facility] [address] [place] [address] [facility] URINE ALBUMIN PROFILE-ih (PB) ALBUMIN/CREA TININE [MASS RATIO] IN URINE 365.65 mg/g 0 - 30 03/11 H Specimen Type: URINE No comment entered. Ordering Provider: VASU HENDERSON W Report Released Date/Time: Feb 03, 2025 12:03 PM Reporting Lab: [place] [facility] [address] [place] [address] Performing Lab: [place] [facility] [address] [place] [address] [facility] URINE ALBUMIN PROFILE-ih (PB) CREATININE [MASS/VOLUME ] IN URINE 31.44 mg/dL 03/11 Specimen Type: URINE No comment entered. Ordering Provider: VASU HENDERSON W Report Released Date/Time: Feb 03, 2025 12:03 PM Reporting Lab: [place] [facility] [address] [place] [address] Performing Lab: [place] [facility] [address] [place] [address] [facility] B12 COBALAMIN (VITAMIN B12) [MASS/VOLUME ] IN SERUM OR PLASMA 443 pg/mL 213 - 816 03/11 Specimen Type: SERUM No comment entered. Ordering Provider: VASU HENDERSON W Report Released Date/Time: Feb 03, 2025 12:03 PM Reporting Lab: [place] [facility] [address] [place] [address] Performing Lab: [place] [facility] [address] [place] [address] [facility] COMPREHENS JUAN A METABOLIC PANEL CREATININE [MASS/VOLUME ] IN SERUM OR PLASMA 3.62 mg/dL 0.7 - 1.3 03/11 H Specimen Type: PLASMA No comment entered. Ordering Provider: VASU HENDERSON W Report Released Date/Time: Feb 03, 2025 12:03 PM Reporting Lab: [place] [facility] [address] [place] [address] Performing Lab: [place] [facility] [address] [place] [address] [facility] COMPREHENS JUAN A METABOLIC PANEL UREA NITROGEN [MASS/VOLUME ] IN SERUM OR PLASMA 55 mg/dL 9 - 25 03/11 H Specimen Type: PLASMA No comment entered. Ordering Provider: VASU HENDERSON W Report Released Date/Time: Feb 03, 2025 12:03 PM Reporting Lab: [place] [facility] [address] [place] [address] Performing Lab: [place] [facility] [address] [place] [address] [facility] COMPREHENS JUAN A METABOLIC PANEL GLUCOSE [MASS/VOLUME ] IN SERUM OR PLASMA 161 mg/dL 72 - 99 03/11 H Specimen Type: PLASMA No comment entered. Ordering Provider: VASU HENDERSON W Report Released Date/Time: Feb 03, 2025 12:03 PM Reporting Lab: [place] [facility] [address] [place] [address] Performing Lab: [place] [facility] [address] [place] [address] [facility] COMPREHENS JUAN A METABOLIC PANEL SODIUM [MOLES/VOLUM E] IN SERUM OR PLASMA 134 meq/L 136 - 145 03/11 L Specimen Type: PLASMA No comment entered. Ordering Provider: VASU HENDERSON W Report Released Date/Time: Feb 03, 2025 12:03 PM Reporting Lab: [place] [facility] [address] [place] [address] Performing Lab: [place] [facility] [address] [place] [address] [facility] COMPREHENS JUAN A METABOLIC PANEL POTASSIUM [MOLES/VOLUM E] IN SERUM OR PLASMA 4.4 meq/L 3.5 - 5 03/11 Specimen Type: PLASMA No comment entered. Ordering Provider: VASU HENDERSON W Report Released Date/Time: Feb 03, 2025 12:03 PM Reporting Lab: [place] [facility] [address] [place] [address] Performing Lab: [place] [facility] [address] [place] [address] [facility] COMPREHENS JUAN A METABOLIC PANEL CHLORIDE [MOLES/VOLUM E] IN SERUM OR PLASMA 101 meq/L 98 - 107 03/11 Specimen Type: PLASMA No comment entered. Ordering Provider: VASU HENDERSON W Report Released Date/Time: Feb 03, 2025 12:03 PM Reporting Lab: [place] [facility] [address] [place] [address] Performing Lab: [place] [facility] [address] [place] [address] [facility] COMPREHENS JUAN A METABOLIC PANEL CARBON DIOXIDE, TOTAL [MOLES/VOLUM E] IN SERUM OR PLASMA 22 meq/L 22 - 31 03/11 Specimen Type: PLASMA No comment entered. Ordering Provider: VASU HENDERSON W Report Released Date/Time: Feb 03, 2025 12:03 PM Reporting Lab: [place] [facility] [address] [place] [address] Performing Lab: [place] [facility] [address] [place] [address] [facility] COMPREHENS JUAN A METABOLIC PANEL CALCIUM [MASS/VOLUME ] IN SERUM OR PLASMA 8.6 mg/dL 8.4 - 10.4 03/11 Specimen Type: PLASMA No comment entered. Ordering Provider: VASU HENDERSON W Report Released Date/Time: Feb 03, 2025 12:03 PM Reporting Lab: [place] [facility] [address] [place] [address] Performing Lab: [place] [facility] [address] [place] [address] [facility] COMPREHENS JUAN A METABOLIC PANEL PROTEIN [MASS/VOLUME ] IN SERUM OR PLASMA 7.2 g/dL 6 - 8.6 03/11 Specimen Type: PLASMA No comment entered. Ordering Provider: VASU HENDERSON W Report Released Date/Time: Feb 03, 2025 12:03 PM Reporting Lab: [place] [facility] [address] [place] [address] Performing Lab: [place] [facility] [address] [place] [address] [facility] COMPREHENS JUAN A METABOLIC PANEL ALBUMIN [MASS/VOLUME ] IN SERUM OR PLASMA 3.6 g/dL 3.4 - 5 03/11 Specimen Type: PLASMA No comment entered. Ordering Provider: VASU HENDERSON W Report Released Date/Time: Feb 03, 2025 12:03 PM Reporting Lab: [place] [facility] [address] [place] [address] Performing Lab: [place] [facility] [address] [place] [address] [facility] COMPREHENS JUAN A METABOLIC PANEL BILIRUBIN.TO JESSIE [MASS/VOLUME ] IN SERUM OR PLASMA 0.3 mg/dL 0.2 - 1.2 03/11 Specimen Type: PLASMA No comment entered. Ordering Provider: VASU HENDERSON W Report Released Date/Time: Feb 03, 2025 12:03 PM Reporting Lab: [place] [facility] [address] [place] [address] Performing Lab: [place] [facility] [address] [place] [address] [facility] COMPREHENS JUAN A METABOLIC PANEL ALKALINE PHOSPHATASE [ENZYMATIC ACTIVITY/VOL UME] IN SERUM OR PLASMA 89 U/L 40 - 150 03/11 Specimen Type: PLASMA No comment entered. Ordering Provider: VASU HENDERSON W Report Released Date/Time: Feb 03, 2025 12:03 PM Reporting Lab: [place] [facility] [address] [place] [address] Performing Lab: [place] [facility] [address] [place] [address] [facility] COMPREHENS JUAN A METABOLIC PANEL ASPARTATE AMINOTRANSFE RASE [ENZYMATIC ACTIVITY/VOL UME] IN SERUM OR PLASMA 10 U/L 5 - 34 03/11 Specimen Type: PLASMA No comment entered. Ordering Provider: VASU HENDERSON W Report Released Date/Time: Feb 03, 2025 12:03 PM Reporting Lab: [place] [facility] [address] [place] [address] Performing Lab: [place] [facility] [address] [place] [address] [facility] COMPREHENS JUAN A METABOLIC PANEL ALANINE AMINOTRANSFE RASE [ENZYMATIC ACTIVITY/VOL UME] IN SERUM OR PLASMA 13 U/L 8 - 40 03/11 Specimen Type: PLASMA No comment entered. Ordering Provider: VASU HENDERSON W Report Released Date/Time: Feb 03, 2025 12:03 PM Reporting Lab: [place] [facility] [address] [place] [address] Performing Lab: [place] [facility] [address] [place] [address] [facility] COMPREHENS JUAN A METABOLIC PANEL GLOMERULAR FILTRATION RATE/1.73 SQ M.PREDICTED [VOLUME RATE/AREA] IN SERUM, PLASMA OR BLOOD BY CREATININE-B ASED FORMULA (CKD-EPI 2020) 20 03/11 Specimen Type: PLASMA No comment entered. Ordering Provider: VASU HENDERSON W Report Released Date/Time: Feb 03, 2025 12:03 PM Reporting Lab: [place] [facility] [address] [place] [address] Performing Lab: [place] [facility] [address] [place] [address] [facility] Vital Signs Combined list of inpatient and outpatient Vital Signs from Department of Defense and Veterans Affairs, ranging from 12 months to all on record, depending upon the facility. Vital Sign Value Date Comments Source SYSTOLIC BLOOD PRESSURE 122 03/11/2025 15:16:00 [facility] DIASTOLIC BLOOD PRESSURE 87 03/11/2025 [facility] 97.9 03/11/[facility]25 15:16:00 [place] [facility] PULSE 92 03/11/2025 15:16:00 [place] [facility] SYSTOLIC BLOOD PRESSURE 92 02/07/2025 13:30:00 [place] [facility] DIASTOLIC BLOOD PRESSURE 63 02/07/2025 13:30:00 [place] [facility] TEMPERATURE 98.4 02/07/2025 13:30:00 [place] [facility] PULSE 74 02/07/2025 13:30:00 [place] [facility] SYSTOLIC BLOOD PRESSURE 118 01/28/2025 13:19:17 [place] [facility] DIASTOLIC BLOOD PRESSURE 74 01/28/2025 13:19:17 [place] [facility] PULSE OXIMETRY 99 01/28/2025 13:19:17 [facility] WEIGHT 183 01/28/2025 13:19:17 [place] [facility] BMI 26 kg/m2 01/28/2025 13:19:17 [place] [facility] PAIN 3 01/28/2025 13:19:17 [place] [facility] TEMPERATURE 97 01/28/2025 13:19:17 [place] [facility] PULSE 88 01/28/2025 13:19:17 [place] [facility] RESPIRATION 20 01/28/2025 13:19:17 [place] [facility] SYSTOLIC BLOOD PRESSURE 136 01/06/2025 10:54:47 [facility] DIASTOLIC BLOOD PRESSURE 88 01/06/2025 10:54:47 [facility] PULSE OXIMETRY 98 01/06/2025 10:54:47 [facility] WEIGHT 192.2 01/06/2025 10:54:47 [facility] BMI 28 kg/m2 01/06/2025 10:54:47 [facility] PAIN 0 01/06/2025 10:54:47 [facility] TEMPERATURE 97.8 01/06/2025 10:54:47 [facility] PULSE 116 01/06/2025 10:54:47 [facility] RESPIRATION 20 01/06/2025 10:54:47 [facility] Encounters Combined list of: 1) Encounters from Department of Veterans Affairs facilities going backup to the last 18 months, not all VA inpatient encounters are included; 2) Encounters from the Department of Defense facilities going backup to 280 months. Location Location Details Encounter Type Encounter Number Reason For Visit Attending Provider ADM Date DC Date Status Disposition Source [facility] Outpatient Encounter [id number] 12/[address] [facility] Outpatient Encounter [id number] [facility] En[facility] [id number] 01/01 [facility] FEE [id number] Diagnos is: ICD-10- CM E11.9 Type 2 diabete s mellitu s without complic ations MARIE CROOK T 01/06 [facility]P EST MOD 30 MIN [id number] Diagnos is: ICD-10- CM E11.9 Type 2 diabete s mellitu s without complic ations MARIE CROOK T 01/06 [place] [facility] MIN [id number] Diagnos is: ICD-10- CM E11.9 Type 2 diabete s mellitu s without complic ations Kianna HENDERSON W 01/06 [facility] En[facility] [id number] 01/06 [place] [facility] [id number] [facility]10 [facility] [id number] 01/15 [facility] MTMS BY PHARM ADDL 15 MIN [id number] Diagnos is: ICD-10- CM E11.9 Type 2 diabete s mellitu s without complic ations Kianna HENDERSON W 01/20 [facility] MTMS BY PHARM DIRECTOR OF ANALYTICAL DEVELOPMENT 15 MIN [id number] Diagnos is: ICD-10- CM E11.9 Type 2 diabete s mellitu s without complic ations JOLANTA RODAS V 01/20 [facility] Outpatient Encounter [id number] 01/21 [facility] Outpatient Encounter [id number] 01/21 [facility] Outpatient Encounter [id number] 01/27 [facility] TELEHEALTH FACILITY FEE [id number] KRYSTAL YOUNG 01/28 [facility] OFFICE O/P EST LOW 20 MIN [id number] Diagnos is: ICD-10- CM E11.9 Type 2 diabete s mellitu s without complic ations KRYSTAL YOUNG 01/28 [facility] Outpatient Encounter [id number] 01/30 [facility] En[facility] [id number] 01/30 [facility] Encounter [id number] 01/31 [facility] Outpatient Encounter [id number] 01/31 [place] [facility] MTMS BY PHARM ADDL 15 MIN [id number] Diagnos is: ICD-10- CM E11.9 Type 2 diabete s mellitu s without complic ations Kianna HENDERSON W 02/03 [facility] Outpatient Encounter [id number] 02/03 [facility] [place] [facility] SYNCH AUDIO-ONLY EST SF 10 [id number] Diagnos is: ICD-10- CM Z77.29 Contact with and exposur e to other hazardo us substan ANITA Stevenson CIA D 02/04 [place] [facility] En[facility] [id number] 02/07 [facility] OFF/OP EST FEBRUARY X REQ PHY/QHP [id number] Diagnos is: ICD-10- CM N39.0 Urinary tract infecti on, site not specifi ed CUSTRED,TO RRI J 02/07 [facility] [place] [facility] Outpatient Encounter [id number] NIMO KWONG N 02/07 [facility] Outpatient Encounter [id number] 02/07 [facility] Outpatient Encounter [id number] 02/10 [facility] Outpatient Encounter [id number] 02/11 [facility] Encounter [id number] 02/11 [facility] Outpatient Encounter [id number] 02/13 [facility] Outpatient Encounter [id number] 02/14 [facility] Outpatient Encounter [id number] 02/14 [facility] Outpatient Encounter [id number] 02/14 [facility] Outpatient Encounter [id number] 02/17 [facility] Outpatient Encounter [id number] ANABELLE ZAVALA A 02/19 [facility] Outpatient Encounter [id number] 02/21 [facility] En[facility] [id number] 02/25 [facility] [place] [facility] Outpatient Encounter [id number] 02/25 [place] [facility] [place] [facility] Outpatient Encounter [id number] 02/25 [place] [facility] BLAIR COVARRUBIAS [facility] Outpatient Encounter [id number] 02/27 TOÑA ZHU [facility] BLAIR COVARRUBIAS [facility] Outpatient Encounter [id number] CARLOS BRODY 03/04 NANCYYANELIS MARKO [facility] MIRTHALICHA FERGUSONSol [facility] Outpatient Encounter [id number] 03/05 [facility]HU [facility] [place] [facility] Outpatient Encounter [id number] 03/06 [place] [facility] Outpatient Encounter [id number] KRISTAL CHAUDHRY RIL L 03/[address] [facility] En[facility] [id number] 03/07 [facility] Outpatient Encounter [id number] KRISTAL CHAUDHRY RIL L 03/10 [facility] [place] [facility] Outpatient Encounter [id number] 03/10 [place] [facility] OFF/OP EST FEBRUARY X REQ PHY/QHP [id number] Diagnos is: ICD-10- CM E11.9 Type 2 diabete s mellitu s without complic ations CUSTRED,TO RRPatrice J 03/11 [facility] Outpatient Encounter [id number] KAVITA ALVAREZ 03/12 [facility] Outpatient Encounter [id number] 03/[address] [facility] MTMS BY PHARM ADDL 15 MIN [id number] Diagnos is: ICD-10- CM E11.9 Type 2 diabete s mellitu s without complic ations MERLENE FELIPE 03/17 [facility] [place] [place] [facility] Outpatient Encounter [id number] 03/17 [facility] Outpatient Encounter [id number] 03/17 [facility] Outpatient Encounter [id number] 03/17 [facility] Outpatient Encounter [id number] 03/18 [facility] Outpatient Encounter [id number] 03/18 [facility] Outpatient Encounter [id number] 03/25 [facility] Outpatient Encounter [id number] 03/25 [facility] Outpatient Encounter [id number] 03/31 [facility] Outpatient Encounter [id number] 04/01 [facility] Outpatient Encounter [id number] 04/01 [facility] Outpatient Encounter [id number] 04/03 [facility] [place] [facility] MTMS BY PHARM ADDL 15 MIN [id number] Diagnos is: ICD-10- CM E11.9 Type 2 diabete s mellitu s without complic ations MERLENE FELIPE 04/04 [facility] [place] [facility] Outpatient Encounter [id number] 04/08 [facility] Outpatient Encounter [id number] 04/10 [facility] Procedures Combined list of: 1) Procedures from Department [facility] Affairs facilities going back up to thelast 18 months, not all [place] non-surgical procedures are included; 2) All procedures from the Department of Defense facilities. Procedure Procedure Type Code Date Perfomer Comments Sour e EDUCATIONAL SUPPLIES, SUCH A S BOOKS, TAPES, AND PAMPHLETS, FOR THE PATIENT'S EDUCATION AT COST TO PHYSICIAN OR OTHER QUALIFIED HEALTH GENERAL ASSEMBLER 08/21/2000 [facility] Social History Combined list of available smoking, tobacco, and other social history from Department of Defense and Veterans [facility] facilities. Social History Type Response Date Comment Source Tobacco smoking status NHIS TOBACCO OFFERED PT MEDS (PROVIDER) 01/23/2020 [facility]NAN[facility] History of tobacco use [place]-TOBACCO USE ORE TRIMMER YES 12/16/2019 Referral to Smoking Cessation [facility] History of tobacco use CURRENT TOBACCO USER 12/18/2018 [facility] History of tobacco use VA-TOBACCO USER EVERY DAY 12/13/2018 [facility] History of tobacco use CURRENT TOBACCO USER 07/06/2010 [facility] This section is an empty social history section. [facility] Plan of Care List of future care activities from [facility] facilities. Additional future care activities may be listed in the Assessment and Plan section. Date/Time Care Activity Care Activity Detail Facili ty 06/16/2025 AMBULATORY - MEDICINE AMBULATORY - MEDICI NE [facility]
--- OUTSIDE RECORDS SUMMARY | 2025-04-27 17:04 | XMS_ITS | Patient Health Record ---
Author Organization [facility] Address [address] [place] [address] Care Team Providers Care Silk Opener Name Role Phone Sil Gatica MD Primary Care Provider UnavailJameel Rivera Unavailable [phone] Chang García Unavailable [phone] Marybel Parry Unavailable [phone] Saurabh Mendez JR Unavailable [phone] Maria Luisa Baez Unavailable [phone] Muna Dubon Unavailable [phone] Nae Love Unavailable [phone] Allergies No Known Allergies Results Component Value Reference Range Flag Notes Culture Urine [id number] Reviewed date:04/04/2025 11:04:54 AM Interpretation: Performing Lab: Notes/Report: Culture Urine SHANEL Ruiz Culture Urine t: Culture Urine Culture Urine [facility] [id number] Culture Urine n: Culture Urine Microbiology Culture Urine PROCEDURE: Culture Urine [O1] Culture Urine SOURCE: Urine BODY SITE: Culture Urine COLLECTED DATE/TIME: 04/01/2025 11:21 CDT RECEIVED DATE/TIME: 04/01/2025 21:47 CDT Culture Urine START DATE/TIME: 04/01/2025 21:47 CDT FREE TEXT SOURCE: Culture Urine FINAL REPORT Culture Urine Final Report [] Culture Urine Verified Date/Time: 04/03/2025 07:15 CDT Culture Urine <10,000 cfu/ml Mixed Superficial Parisa Culture Urine Order Comments Culture Urine O1: Culture Urine (Culture Urine [id number]) Culture Urine Diagnosis Description: Unspecified symptoms and signs involving the genitourinary system Culture Urine [id number] Reviewed date:03/08/2025 08:07:55 AM Interpretation: Performing Lab: Notes/Report: Culture Urine SHANEL Ruiz Culture Urine t: Culture Urine Culture Urine Accessio [id number] Culture Urine n: Culture Urine Microbiology Culture Urine PROCEDURE: Culture Urine [O1] Culture Urine SOURCE: Urine BODY SITE: Culture Urine COLLECTED DATE/TIME: 03/06/2025 13:33 CDT RECEIVED DATE/TIME: 03/06/2025 16:46 CDT Culture Urine START DATE/TIME: 03/06/2025 16:46 CDT FREE TEXT SOURCE: Culture Urine FINAL REPORT Culture Urine Final Report [] Culture Urine Verified Date/Time: 03/08/2025 06:40 CDT Culture Urine No growth at 48 hours Culture Urine Order Comments Culture Urine O1: Culture Urine (Culture Urine [id number]) Culture Urine Diagnosis Description: Abscess of prostate Culture Urine Diagnosis Description: Unspecified kidney failure PSA Diagnostic--[id number] Reviewed date:03/08/2025 08:07:45 AM Interpretation: Performing Lab: Notes/Report: Diagnosis Description: Abscess of prostate PSA .12 .00-4.00 NG/ML PSA concen trations, regardless of the value, should not be interpreted as definitive evidence for the presence or absence of prostate cancer. Microscopic Urine [id number] Reviewed date:03/08/2025 08:08:02 AM Interpretation: Performing Lab: Notes/Report: Diagnosis Description: Abscess of prostate Diagnosis Description: Unspecified kidney failure RBC U 94 NA WBC U 378 0-5 /HPF HI Bacteria 1+ NA Hyaline Casts 3 NA SQ EPI <1 NA CRP [id number] Reviewed date:02/14/2025 07:29:09 AM Interpretation: Performing Lab: Notes/Report: 4421 @ 2013 CRP 12.03 .40-1.00 MG/DL ND Comprehensive Metabolic Pane l (CMP) 26282 Reviewed date:02/14/2025 07:29:14 AM Interpretation: Performing Lab: Notes/Report: 4421 @ 2013 Glucose Serum 123 71-110 MG/DL HI Testing p erformed at [facility], [address] [place] [address] [place] [address]. CLIA ID#: [id number] BUN 46 7-21 MG/DL HI Creat 6.30 .57-1.17 MG/DL HI E-umsehy-l-benzoquin one imine (NAPQI) is a metabolite of acetaminophen, NAPQI concentrations of apparoximately 10 mg/L correlation to toxic levels of acetaminophen demonstrates a greater than or equil to 10% change in results. NAPQI concentrations greater than this may lead to falsely depressed results for patient samples. Use of this assay is not recommended for patients undergoing treatment with phenindione, due to the potential for falsely depressed results. GFR 10.5 NA Calculation pe rformed from GFR calculator provided by the National Kid[employer]. Glomerular Filtration rate(GRF) is the best overall index of kidney function. Normal GFR varies according to age,sex, body size, and declines with age. The National Kidney Foundation recommends using the CKD-EPI Creatinine Equation(2020) to estimate GFR. BUN/Creat Ratio 7.3 12.0-20.0 % LOW Total Protein 5.4 5.8-8.0 G/DL LOW Albumin 2.8 3.2-4.8 G/DL LOW Globulin 2.6 2.3-3.5 G/DL Alb/Glob 1.1 0.8-2.2 Calcium 7.3 8.7-10.4 MG/DL LOW Sodium 136 136-145 MMOL/L Potassium 5.2 3.5-5.1 MMOL/L HI Chloride 109 98-107 MMOL/L HI CO2 19.3 20.0-31.0 MMOL/L LOW Anion Gap 13 5-15 Alk Phos 82 46-116 Bili Total .2 .3-1.2 MG/DL LOW Use of this assay is not recommended for patients undergoing treatment with eltrombopag due to the potential for falsely elevated results. AST/SGOT 25 15-37 UNIT/L ALT/SGPT 26 12-78 UNIT/L Osmo Serum,Calculated 295 280-300 MOSM/KG CBC w\ Auto Diff [id number] Reviewed date:02/14/2025 07:29:24 AM Interpretation: Performing Lab: Notes/Report: 4421 @ 2014 WBC 8.2 4.5-11.0 X10'3 RBC 2.79 4.50-5.90 X10'6 LOW Hgb 7.0 13.5-17.5 G/DL LOW Hct 22.9 41.0-53.0 % LOW MCV 82.1 80.0-100.0 FL MCH 25.1 27.0-31.0 PG LOW MCHC 30.6 31.0-37.0 G/DL LOW Platelet 342 150-400 X10'3 RDW-SD 48.8 35.0-49.0 FL RDW-CV 16.1 12.2-15.6 % HI MPV 8.6 9.2-12.0 FL LOW Neutro Auto% 77.2 40.0-70.0 % HI Lymph Auto% 11.8 22.0-44.0 % LOW Jack Auto% 4.6 3.0-7.0 % Eos Auto% 2.8 2.0-4.0 % Baso Auto% 0.2 0.0-1.0 % Imm Gran% 3.4 .0-.4 % HI Neutro Abs 6.35 .80-7.70 Absolute Neutrophil Count 6350 NA Lymph Abs .97 .10-4.10 Jack Abs .38 .20-1.00 Eos Abs .23 .00-.40 Baso Abs .02 .00-.20 Imm Gran Abs .28 .00-.10 HI NRBC# .00 .00-.20 NRBC% .00 .00-.20 /100 intact WBC's % Iron Saturation (Fe & TIBC )--14397,42570 Reviewed date:02/12/2025 04:25:31 PM Interpretation: Performing Lab: Notes/Report: 4421 @ 2013 Iron 15 65-175 MCG/DL LOW Per Iron as say instruction for Use(IFU), patients treated with metal-binding drugs (e.g.deferoxamine) may have depressed iron values as chelated iron may not properly react in the iron assay. Testing was performed with this assay method. TIBC 145 250-450 NG/DL LOW % Iron Saturation 10 20-50 % LOW Phosphorus (B) 84174 Reviewed date:02/12/2025 04:25:31 PM Interpretation: Performing Lab: Notes/Report: 4421 @ 2013 Phos 6.1 2.4-5.1 MG/DL HI Magnesium (B) 31238 Reviewed date:02/12/2025 04:25:31 PM Interpretation: Performing Lab: Notes/Report: 4421 @ 2013 Magnesium 1.9 1.8-2.4 MG/DL Ferritin 92321 Reviewed date:02/12/2025 04:25:31 PM Interpretation: Performing Lab: Notes/Report: 4421 @ 2013 Ferritin 1106 8-388 NG/ML HI Comprehensive Metabolic Pane l (CMP) 44029 Reviewed date:02/13/2025 03:35:54 PM Interpretation: Performing Lab: Notes/Report: 4421 @ 2013 Glucose Serum 134 71-110 MG/DL HI Testing p erformed at [facility], [address] [place] [address] [place] [address]. CLIA ID#: [id number] BUN 52 7-21 MG/DL HI Creat 6.93 .57-1.17 MG/DL HI Use of this assay is not recommended for patients undergoing treatment with phenindione, due to the potential for falsely depressed results. O-zglpnm-u-benzoquin one imine (NAPQI) is a metabolite of acetaminophen, NAPQI concentrations of apparoximately 10 mg/L correlation to toxic levels of acetaminophen demonstrates a greater than or equil to 10% change in results. NAPQI concentrations greater than this may lead to falsely depressed results for patient samples. GFR 9.4 NA Calculation pe rformed from GFR calculator provided by the National Kidney Foundation. Glomerular Filtration rate(GRF) is the best overall index of kidney function. Normal GFR varies according to age,sex, body size, and declines with age. The National Kidney Foundation recommends using the CKD-EPI Creatinine Equation(2020) to estimate GFR. BUN/Creat Ratio 7.5 12.0-20.0 % LOW Total Protein 5.2 5.8-8.0 G/DL LOW Albumin 2.6 3.2-4.8 G/DL LOW Globulin 2.6 2.3-3.5 G/DL Alb/Glob 1.0 0.8-2.2 Calcium 7.2 8.7-10.4 MG/DL LOW Sodium 136 136-145 MMOL/L Potassium 4.3 3.5-5.1 MMOL/L Chloride 107 98-107 MMOL/L CO2 20.0 20.0-31.0 MMOL/L Anion Gap 13 5-15 Alk Phos 83 46-116 Bili Total .2 .3-1.2 MG/DL LOW Use of this assay is not recommended for patients undergoing treatment with eltrombopag due to the potential for falsely elevated results. AST/SGOT 18 15-37 UNIT/L ALT/SGPT 20 12-78 UNIT/L Osmo Serum,Calculated 298 280-300 MOSM/KG CBC w\ Auto Diff [id number] Reviewed date:02/12/2025 04:25:31 PM Interpretation: Performing Lab: Notes/Report: 4421 @ 2014 WBC 8.2 4.5-11.0 X10'3 RBC 2.92 4.50-5.90 X10'6 LOW Hgb 7.3 13.5-17.5 G/DL LOW Hct 23.8 41.0-53.0 % LOW MCV 81.5 80.0-100.0 FL MCH 25.0 27.0-31.0 PG LOW MCHC 30.7 31.0-37.0 G/DL LOW Platelet 338 150-400 X10'3 RDW-SD 47.3 35.0-49.0 FL RDW-CV 15.9 12.2-15.6 % HI MPV 8.4 9.2-12.0 FL LOW Neutro Auto% 74.6 40.0-70.0 % HI Lymph Auto% 12.7 22.0-44.0 % LOW Jack Auto% 6.6 3.0-7.0 % Eos Auto% 3.2 2.0-4.0 % Baso Auto% 0.2 0.0-1.0 % Imm Gran% 2.7 .0-.4 % HI Neutro Abs 6.10 .80-7.70 Absolute Neutrophil Count 6100 NA Lymph Abs 1.04 .10-4.10 Jack Abs .54 .20-1.00 Eos Abs .26 .00-.40 Baso Abs .02 .00-.20 Imm Gran Abs .22 .00-.10 HI NRBC# .00 .00-.20 NRBC% .00 .00-.20 /100 intact WBC's Calcium Ionized (B) 61004 Reviewed date:02/12/2025 04:25:31 PM Interpretation: Performing Lab: Notes/Report: 4421 @ 2014 Calcium Ionized 1.06 1.09-1.30 MMOL/L LOW Glucometer WBG--76694 Reviewed date:01/21/2025 02:36:40 PM Interpretation: Performing Lab: Notes/Report: Glucometer WBG 269 65-110 MG/DL ND Notify ~Asymptomatic~Meter : [id number]~Road [employer]: [id number] BRANDIE TITUS CBC w\o Diff 83233 Reviewed date:12/28/2024 01:56:29 PM Interpretation: Performing Lab: Notes/Report: 1W 2424 WBC 6.8 4.5-11.0 X10'3 RBC 4.83 4.50-5.90 X10'6 Hgb 13.0 13.5-17.5 G/DL LOW Hct 37.1 41.0-53.0 % LOW MCV 76.8 80.0-100.0 FL LOW MCH 26.9 27.0-31.0 PG LOW MCHC 35.0 31.0-37.0 G/DL Platelet 188 150-400 X10'3 RDW-SD 37.6 35.0-49.0 FL RDW-CV 13.3 12.2-15.6 % MPV 10.6 9.2-12.0 FL US Renal w/bladder-33346 Reviewed date:04/10/2025 03:53:48 PM Interpretation: Performing Lab: Notes/Report: crk=[id number]&org=[employer], [place] - [id number] Reviewed date:04/01/2025 08:30:44 AM Interpretation: Performing Lab: Notes/Report: Glucose 2+ Bili - Ketones - Sp [place]auxite 1.010 Blood 1+ pH 6.0 Protein +- Urobili - Nitrites - Leukocytes 3+ CRP 56405 Reviewed date:03/08/2025 08:08:32 AM Interpretation: Performing Lab: Notes/Report: Diagnosis Description: Abscess of prostate Diagnosis Description: Unspecified kidney failure CRP 3.45 .40-1.00 MG/DL ND Comprehensive Metabolic Pane l (CMP) 36722 Reviewed date:03/08/2025 08:08:41 AM Interpretation: Performing Lab: Notes/Report: Diagnosis Description: Abscess of prostate Diagnosis Description: Unspecified kidney failure Glucose Serum 217 71-110 MG/DL HI Testing p erformed at [facility], [address] [place] [address] [place] [address]. CLIA ID#: [id number] BUN 58 7-21 MG/DL HI Creat 4.18 .57-1.17 MG/DL HI Use of this assay is not recommended for patients undergoing treatment with phenindione, due to the potential for falsely depressed results. K-qwdynx-h-benzoquin one imine (NAPQI) is a metabolite of acetaminophen, NAPQI concentrations of apparoximately 10 mg/L correlation to toxic levels of acetaminophen demonstrates a greater than or equil to 10% change in results. NAPQI concentrations greater than this may lead to falsely depressed results for patient samples. GFR 17.2 NA Calculation pe rformed from GFR calculator provided by the National Kidney Foundation. Glomerular Filtration rate(GRF) is the best overall index of kidney function. Normal GFR varies according to age,sex, body size, and declines with age. The National Kidney Foundation recommends using the CKD-EPI Creatinine Equation(2020) to estimate GFR. BUN/Creat Ratio 13.9 12.0-20.0 % Total Protein 7.6 5.8-8.0 G/DL Albumin 3.7 3.2-4.8 G/DL Globulin 3.9 2.3-3.5 G/DL HI Alb/Glob 0.9 0.8-2.2 Calcium 9.1 8.7-10.4 MG/DL Sodium 128 136-145 MMOL/L LOW Potassium 4.8 3.5-5.1 MMOL/L Chloride 96 98-107 MMOL/L LOW CO2 22.2 20.0-31.0 MMOL/L Anion Gap 15 5-15 Alk Phos 154 46-116 HI Bili Total .3 .3-1.2 MG/DL Use of this assay is not recommended for patients undergoing treatment with eltrombopag due to the potential for falsely elevated results. AST/SGOT 15 15-37 UNIT/L ALT/SGPT 22 12-78 UNIT/L Osmo Serum,Calculated 289 280-300 MOSM/KG CBC w\ Auto Diff [id number] Reviewed date:03/08/2025 08:08:36 AM Interpretation: Performing Lab: Notes/Report: Diagnosis Description: Abscess of prostate Diagnosis Description: Unspecified kidney failure WBC 4.9 4.5-11.0 X10'3 RBC 3.83 4.50-5.90 X10'6 LOW Hgb 9.6 13.5-17.5 G/DL LOW Hct 30.1 41.0-53.0 % LOW MCV 78.6 80.0-100.0 FL LOW MCH 25.1 27.0-31.0 PG LOW MCHC 31.9 31.0-37.0 G/DL Platelet 183 150-400 X10'3 RDW-SD 49.6 35.0-49.0 FL HI RDW-CV 17.3 12.2-15.6 % HI MPV 10.9 9.2-12.0 FL Neutro Auto% 59.0 40.0-70.0 % Lymph Auto% 23.6 22.0-44.0 % Jack Auto% 7.4 3.0-7.0 % HI Eos Auto% 8.8 2.0-4.0 % HI Baso Auto% 0.6 0.0-1.0 % Imm Gran% .6 .0-.4 % HI Neutro Abs 2.87 .80-7.70 Absolute Neutrophil Count 2870 NA Lymph Abs 1.15 .10-4.10 Jack Abs .36 .20-1.00 Eos Abs .43 .00-.40 HI Baso Abs .03 .00-.20 Imm Gran Abs .03 .00-.10 NRBC# .00 .00-.20 NRBC% .00 .00-.20 /100 intact WBC's CBC w\ Auto Diff [id number] Reviewed date:03/26/2025 08:16:37 AM Interpretation: Performing Lab: Notes/Report: Diagnosis Description: Abscess of prostate Diagnosis Description: Unspecified kidney failure WBC 5.0 4.5-11.0 X10'3 RBC 3.42 4.50-5.90 X10'6 LOW Hgb 9.0 13.5-17.5 G/DL LOW Hct 28.6 41.0-53.0 % LOW MCV 83.6 80.0-100.0 FL MCH 26.3 27.0-31.0 PG LOW MCHC 31.5 31.0-37.0 G/DL Platelet 275 150-400 X10'3 RDW-SD 53.8 35.0-49.0 FL HI RDW-CV 17.5 12.2-15.6 % HI MPV 9.5 9.2-12.0 FL Neutro Auto% 47.0 40.0-70.0 % Lymph Auto% 38.4 22.0-44.0 % Jack Auto% 5.7 3.0-7.0 % Eos Auto% 7.9 2.0-4.0 % HI Baso Auto% 0.6 0.0-1.0 % Imm Gran% .4 .0-.4 % Neutro Abs 2.33 .80-7.70 Absolute Neutrophil Count 2330 NA Lymph Abs 1.90 .10-4.10 Jack Abs .28 .20-1.00 Eos Abs .39 .00-.40 Baso Abs .03 .00-.20 Imm Gran Abs .02 .00-.10 NRBC# .00 .00-.20 NRBC% .00 .00-.20 /100 intact WBC's Comprehensive Metabolic Pane l (CMP) 46536 Reviewed date:03/26/2025 08:16:44 AM Interpretation: Performing Lab: Notes/Report: Diagnosis Description: Abscess of prostate Diagnosis Description: Unspecified kidney failure Glucose Serum 99 71-110 MG/DL Testing p erformed at [facility], [address] [place] [address] [place] [address]. CLIA ID#: [id number] BUN 67 7-21 MG/DL HI Creat 3.13 .57-1.17 MG/DL HI Use of this assay is not recommended for patients undergoing treatment with phenindione, due to the potential for falsely depressed results. U-vkarha-k-benzoquin one imine (NAPQI) is a metabolite of acetaminophen, NAPQI concentrations of apparoximately 10 mg/L correlation to toxic levels of acetaminophen demonstrates a greater than or equil to 10% change in results. NAPQI concentrations greater than this may lead to falsely depressed results for patient samples. GFR 24.3 NA Calculation pe rformed from GFR calculator provided by the National Kidney Foundation. Glomerular Filtration rate(GRF) is the best overall index of kidney function. Normal GFR varies according to age,sex, body size, and declines with age. The National Kidney Foundation recommends using the CKD-EPI Creatinine Equation(2020) to estimate GFR. BUN/Creat Ratio 21.4 12.0-20.0 % HI Total Protein 7.5 5.8-8.0 G/DL Albumin 4.5 3.2-4.8 G/DL Globulin 3.0 2.3-3.5 G/DL Alb/Glob 1.5 0.8-2.2 Calcium 9.4 8.7-10.4 MG/DL Sodium 140 136-145 MMOL/L Potassium 5.0 3.5-5.1 MMOL/L Chloride 104 98-107 MMOL/L CO2 23.7 20.0-31.0 MMOL/L Anion Gap 17 5-15 HI Alk Phos 80 46-116 Bili Total .2 .3-1.2 MG/DL LOW Use of this assay is not recommended for patients undergoing treatment with eltrombopag due to the potential for falsely elevated results. AST/SGOT 16 15-37 UNIT/L ALT/SGPT 17 12-78 UNIT/L Osmo Serum,Calculated 310 280-300 MOSM/[place] CRP [id number] Reviewed date:03/26/2025 08:16:31 AM Interpretation: Performing Lab: Notes/Report: Diagnosis Description: Abscess of prostate Diagnosis Description: Unspecified kidney failure CRP .66 .40-1.00 MG/DL Basic Metabolic Panel (BMP) 87649 Reviewed date:01/30/2025 10:24:37 AM Interpretation: Performing Lab: Notes/Report: in Endoscopy pre procedure area Sodium 134 136-145 MMOL/L LOW Potassium 3.6 3.5-5.1 MMOL/L Chloride 98 98-107 MMOL/L CO2 22.9 20.0-31.0 MMOL/L Glucose Serum 291 71-110 MG/DL HI Testing p erformed at [facility] [place] [address]. CLIA ID#: [id number] BUN 37 7-21 MG/DL HI DELTA NOTED BY TECH Creat 2.80 .57-1.17 MG/DL HI Use of this assay is not recommended for patients undergoing treatment with phenindione, due to the potential for falsely depressed results. V-llrltf-f-benzoquin one imine (NAPQI) is a metabolite of acetaminophen, NAPQI concentrations of apparoximately 10 mg/L correlation to toxic levels of acetaminophen demonstrates a greater than or equil to 10% change in results. NAPQI concentrations greater than this may lead to falsely depressed results for patient samples. GFR 27.8 NA Calculation pe rformed from GFR calculator provided by the National Kidney Foundation. Glomerular Filtration rate(GRF) is the best overall index of kidney function. Normal GFR varies according to age,sex, body size, and declines with age. The National Kidney Foundation recommends using the CKD-EPI Creatinine Equation(2020) to estimate GFR. Anion Gap 17 5-15 HI BUN/Creat Ratio 13.2 12.0-20.0 % Calcium 8.4 8.7-10.4 MG/DL LOW Osmo Serum,Calculated 297 280-300 MOSM/KG CBC w\ Auto Diff [id number] Reviewed date:02/14/2025 07:27:34 AM Interpretation: Performing Lab: Notes/Report: 4421 @ 2014 WBC 9.3 4.5-11.0 X10'3 RBC 2.80 4.50-5.90 X10'6 LOW Hgb 6.8 13.5-17.5 G/DL CRIT called to Amberly Wharton RN 02/14/2025 06:56:32 /dep/rbv Hct 23.4 41.0-53.0 % LOW MCV 83.6 80.0-100.0 FL MCH 24.3 27.0-31.0 PG LOW MCHC 29.1 31.0-37.0 G/DL LOW Platelet 387 150-400 X10'3 RDW-SD 49.6 35.0-49.0 FL HI RDW-CV 16.2 12.2-15.6 % HI MPV 8.9 9.2-12.0 FL LOW Neutro Auto% 76.8 40.0-70.0 % HI Lymph Auto% 11.6 22.0-44.0 % LOW Jack Auto% 4.9 3.0-7.0 % Eos Auto% 3.3 2.0-4.0 % Baso Auto% 0.2 0.0-1.0 % Imm Gran% 3.2 .0-.4 % HI Neutro Abs 7.15 .80-7.70 Absolute Neutrophil Count 7150 NA Lymph Abs 1.08 .10-4.10 Jack Abs .46 .20-1.00 Eos Abs .31 .00-.40 Baso Abs .02 .00-.20 Imm Gran Abs .30 .00-.10 HI NRBC# .00 .00-.20 NRBC% .00 .00-.20 /100 intact WBC's Comprehensive Metabolic Pane l (CMP) 19926 Reviewed date:02/14/2025 07:27:55 AM Interpretation: Performing Lab: Notes/Report: 4421 @ 2014 Glucose Serum 138 71-110 MG/DL HI Testing p erformed at [facility], [address] [place] [address] [place] [address]. CLIA ID#: [id number] BUN 44 7-21 MG/DL HI Creat 6.31 .57-1.17 MG/DL HI Y-xoknlu-b-benzoquin one imine (NAPQI) is a metabolite of acetaminophen, NAPQI concentrations of apparoximately 10 mg/L correlation to toxic levels of acetaminophen demonstrates a greater than or equil to 10% change in results. NAPQI concentrations greater than this may lead to falsely depressed results for patient samples. Use of this assay is not recommended for patients undergoing treatment with phenindione, due to the potential for falsely depressed results. GFR 10.5 NA Calculation pe rformed from GFR calculator provided by the National Kid[employer] Foundation. Glomerular Filtration rate(GRF) is the best overall index of kidney function. Normal GFR varies according to age,sex, body size, and declines with age. The National Kidney Foundation recommends using the CKD-EPI Creatinine Equation(2020) to estimate GFR. BUN/Creat Ratio 7.0 12.0-20.0 % LOW Total Protein 5.1 5.8-8.0 G/DL LOW Albumin 2.6 3.2-4.8 G/DL LOW Globulin 2.4 2.3-3.5 G/DL Alb/Glob 1.1 0.8-2.2 Calcium 7.3 8.7-10.4 MG/DL LOW Sodium 137 136-145 MMOL/L Potassium 5.1 3.5-5.1 MMOL/L Chloride 109 98-107 MMOL/L HI CO2 18.9 20.0-31.0 MMOL/L LOW Anion Gap 14 5-15 Alk Phos 79 46-116 Bili Total <.2 .3-1.2 MG/DL LOW Use of this assay is not recommended for patients undergoing treatment with eltrombopag due to the potential for falsely elevated results. AST/SGOT 15 15-37 UNIT/L ALT/SGPT 20 12-78 UNIT/L Osmo Serum,Calculated 297 280-300 MOSM/KG CRP [id number] Reviewed date:02/14/2025 07:27:42 AM Interpretation: Performing Lab: Notes/Report: 4421 @ 2014 CRP 9.79 .40-1.00 MG/[place] CRP 17137 Reviewed date:02/24/2025 08:31:22 AM Interpretation: Performing Lab: Notes/Report: report called 3529 CRP 3.18 .40-1.00 MG/DL HI US Renal w/bladder-25576 Reviewed date:04/10/2025 03:53:39 PM Interpretation: Performing Lab: Notes/Report: See Below For Report US Renal w/bladder To be completed THIS WEEK OR NEXT. No later than 04/11/2025. Read See Below For Report Reason For Referral Reason EGD/COLON Diagnosis 1 Microcytic anemia (D 50.9) Diagnosis 2 Chronic diarrhea (K5 2.9) Diagnosis 3 Chronic gastroesopha geal reflux disease (K21.9) Referring Provider First Name Sim braga Referring Provider Last Name [place] Referring Provider [facility] Referred Organization [facility] Referred Provider Marybel Parry Referred Address [address] [place], [place],[address], Referral Priority Routine Reason Prostate Abscess Diagnosis 1 Prostate abscess (N4 1.2) Referring Provider First Name Sweeden Lamont ff Referring Provider Last Name [place] Referring Provider [facility] Referred Organization [facility] Referred Provider Jameel Schmitt Referred Address [address],[place], [place],[address],[place] Referred Provider Specialty Urology Referral Priority Routine Reason PEPTIC ULCER DISEASE GASTRITIS Diagnosis 1 Peptic ulcer disease (K27.9) Diagnosis 2 Gastritis (K29.70) Referral Organization [facility] Referring Provider First Name Saurabh Referring Provider Last Name Andrea Referring Provider Speciality Infectious Disease Referred Organization [facility] Referred Provider Marybel Parry Referred Address [address] [place],[address],[place] Referred Provider Specialty Gastroentero logy Referral Priority Routine Reason Referring to Dr Jona gutierrez. Thank you! , RFS sent Diagnosis 1 Referral of patient (Z76.89) Referring Provider First Name Jameel Referring Provider Last Name Keshia Referring Provider Speciality Urology Referred Organization [facility] Referred Provider eJss Hyde Referred Address [address] [place] [address] [address],[place],[address],[place] Referred Provider Specialty Nurse Abilio dowd Referral Priority Routine Reason Referring to Dr Jona gutierrez. Thank you! RFS sent Diagnosis 1 Referral of patient (Z76.89) Referral Organization [facility] Referring Provider First Name Jameel Referring Provider Last Name Keshia Referring Provider Speciality Urology [facility] Referred Provider Chang García Referred Address [address] [place] [address] [address],[place],[address],[place] Referred Provider Specialty Nephrology Referral Priority Routine Medications Medication SIG (Take, Route, Frequency, Duration) Notes Start Date End Date Status Lantus SoloStar 100 UNIT/ML Solution Pen-injector Inject up to 50 Units Subcutaneous Daily; Duration: 30 days 50% discount Active Iron 325 (65 Fe) MG Tablet 1 tablet Orally Twice daily Not-Taking NIFEdipine 60 MG Tablet Extended Release as directed Orally Active Gvoke HypoPen 2-Pack 1 MG/0.2ML Solution Auto-injector as directed Subcutaneous PRN; Duration: 365 days 50% discount 01/27/2025 01/27/2027 Not-Taking Ferrous Gluconate 324 (38 Fe) MG Tablet 1 tablet Orally Three times a Week Active Prochlorperazine 10 MG Tablet 1 tablet as needed Orally Three times a day Active Tylenol Extra Strength 500 MG Tablet 1 tablet as needed Orally every 6 hrs Active Protonix 40 MG Tablet Delayed Release 1 tablet Orally Once a day Not-Taking traMADol HCl 50 MG Tablet 1 tablet as needed Orally Once a day Active NovoLOG FlexPen 100 UNIT/ML Solution Pen-injector 10 Units with meals Subcutaneous TID Active metFORMIN HCl 500 MG Tablet 1 tablet with a meal Orally Twice daily Not-Taking cefTRIAXone Sodium 2 GM Solution Reconstituted as directed Injection Active Ondansetron HCl 4 MG Tablet 1 tablet Orally Once a day Active Carafate 1 GM Tablet 1 tablet on an empty stomach Orally Once daily Active Zetia 10 MG Tablet 1 tablet Orally Once a day Active Social History Tobacco Use: Social History Observation Description Date Details (start date - stop date) Current Smoker NA - NA Social History Tobacco Use: Social Info Question Answer Notes Tobacco Control (Standard) Tobacco use: Current smoker Additional Findings: Tobacco user e-cigarette Problems Problem Type SNOMED Code ICD Code Onset Dates Problem Status W/U Status Risk Notes Problem Type II diabetes mellitus without complication (091636223) Type 2 diabetes mellitus without complications (E11.9) Active confirmed Problem Diabetic severe hyperglycemia (915311416) Other specified diabetes mellitus with hyperglycemia (E13.65) Active confirmed Problem Benign prostatic hypertrophy without outflow obstruction (680973278) Benign prostatic hyperplasia without lower urinary tract symptoms (N40.0) Active confirmed Problem Lower urinary tract symptoms due to benign prostatic hypertrophy (62780715105308) Benign prostatic hyperplasia with lower urinary tract symptoms, symptom details unspecified (N40.1) Active confirmed Problem Gastroesophageal reflux disease (disorder) (804419201) Chronic GERD (K21.9) Active confirmed Problem Iron deficiency anemia (25143833) Iron deficiency anemia, unspecified iron deficiency anemia type (D50.9) Active confirmed Problem Gastritis (0199986) Gastritis (K29.70) Active c onfirmed Problem Peptic ulcer disease (67320832) Peptic ulcer disease (K27.9) Active confirmed Problem Renal failure syndrome (20814271) Renal failure, unspecified chronicity (N19) Active confirmed Problem Microcytic anemia (893107143) Microcytic anemia (D50.9) Active confirmed Problem Iron deficiency anemia (14736814) Iron deficiency anemia (D50.9) Active confirmed Problem Neurologic disorder associated with type II diabetes mellitus (402689148) 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) Active confirmed Problem Hyperglycemia due to type 2 diabetes mellitus (677772572158810) Type 2 diabetes mellitus with hyperglycemia, unspecified whether shelter insulin use (E11.65) Active confirmed Problem Long-term current use of insulin (811581334) Current use of insulin (Z79.4) Active confirmed Problem Gastroesophageal reflux disease (160534277) Chronic gastroesophageal reflux disease (K21.9) Active confirmed Problem Ketoacidosis in type II diabetes mellitus (265093453) Diabetes mellitus type 2 with ketoacidosis, uncontrolled (E11.10) Active confirmed Vital Signs Heart Rate 92 /min 04/01/2025 Temperature 98.2 degrees Fahrenheit 04/01/2025 Respiratory Rate 17 /min 03/06/2025 Oximetry 100 % 03/24/2025 Blood pressure diastolic 104 mm Hg 04/01/2025 Height-cm 177.8 cm 04/01/2025 Weight-kg 80.29 kg 04/01/2025 Height 70 in 04/01/2025 Blood pressure systolic 156 mm Hg 04/01/2025 Weight 177 lbs 04/01/2025 BMI 25.39 kg/m2 04/01/2025 Procedures Procedure Date Ordered Date Performed Result Body Sit e PVR (Post Void Residual) 04/01/2025 04/01/2025 N/A Encounters Encounter Location Date Provider Diagnosis [facility] [address] [place] [address] 01/21/2025 Abodunrtrish Parry Iron deficiency anemia, unspecified iron deficiency anemia type D50.9 [facility] [address] [facility] [place] [address] 01/27/2025 Nae Love Other specified diabetes mellitus with hyperglycemia E13.65 ; Current use of insulin Z79.4 ; Diabetes education, encounter for Z71.89 ; Uses self-applied continuous glucose monitoring device Z97.8 and At risk for hypoglycemia Z91.89 [facility] [address] [place] [address], [place] [address] 03/06/2025 Saurabh Andrea Abscess of prostate N41.2 and Renal failure, unspecified chronicity N19 [facility] [address] [place] [address], [place] [address] 03/13/2025 Saurabh Andrea Abscess of prostate N41.2 and Renal failure, unspecified chronicity N19 [facility] [address] [place] [address], [place] [address] 03/24/2025 Saurabh Andrea Abscess of prostate N41.2 and Renal failure, unspecified chronicity N19 [facility] [address] [place] [address], [place] [address] 04/01/2025 Jameel Keshia Abscess of prostate N41.2 ; Flank pain R10.9 ; Incomplete bladder emptying R33.9 and Unspecified symptoms and signs involving the genitourinary system R39.9 [facility] [address] [place] [address] 12/27/2024 Muna Dubon [facility] [address] [place] [address] 12/30/2024 Abodunrin Brinda Iron deficiency anemia, unspecified iron deficiency anemia type D50.9 [facility] [address] [place] [address] 01/30/2025 Aboeric Parry Acute kidney injury N17.9 [facility] [address] [place] [address] [address] [place] [address] 02/04/2025 Chang García [facility] [address] [place] [address] 02/17/2025 [facility] [address] [place] [address] [place] [address] 03/25/2025 Saurabh Mendez [facility] [address] [place] [address] 04/01/2025 Jameel Keshia Abscess of prostate N41.2 and Flank pain R10.9 [facility] [address] [place] [address] 04/01/2025 Jameel Keshia Urinary retention R33.9 and Hematuria, unspecified type R31.9 Assessments Encounter Date Diagnosis (ICD Code) Assessment Notes Treatment Notes Treatment Clinical Notes Section Notes 12/30/2024 Iron deficiency anemia, unspecified iron deficiency anemia type (ICD-10 - D50.9) 04/01/2025 Abscess of prostate (ICD-10 - N41.2) 04/01/2025 Flank pain (ICD-10 - R10.9) 03/24/2025 Abscess of prostate (ICD-10 - N41.2) 1. 44 yo white male with a history of recurrent UTI's, T2DM, nephropathy, neuropathy, and cigarette smoker 2. Admission 02-07-25 with Prostatic abscess, and renal failure -discharged 02-24-25, then was admitted in [facility]. - Requested pt get discharge summary from that admission. 3. Diagnostics; -CT scan 02-07-25; 3 cm abscess noted within the prostate. - CT Scan 02-21-25; The right and left kidneys both appear enlarged and edematous with mild surrounding stranding, unchanged compared to 02/07/2025. Consider pyelonephritis. Some fluid collections along the borders of the prostate gland as shown previously. There is are not quite as well seen on the current study of February and resolved partially although evaluation is nonoptimal without intravenous contrast. Small amount of free fluid seen in the pelvis on 02/07/2025 has resolved. The gallbladder is somewhat distended but otherwise unremarkable without apparent stones or wall thickening or inflammation. Stable mild splenomegaly. 4. 02-08-25; RESECTION PROSTATE TRANSURETHRAL, transurethral resection/unroo fing of the prostatic abscess . 02-08-25 UC E. coli (R: amp, S: fortaz, cipro);02-07-25 Urine culture; E coli (R:amp, S: Fortaz, cipro) - 02-23-25 UC Neg at 48 hrs -02-26-25 BC Neg 6. Antibiotics; Day # 42 on 03-22-25 - DC Fortaz on 03-24-25 post-op (start date 02-09-25) duration 6 weeks AET 03-22-25 - [place] Cipro PO 500mg BID (start date 03-24-25) . Pt notified to [place] Cipro on 03-25-25 @ 945am 7. Gastritis, Peptic ulcer disease, improved on Carafate and Protonix. - Pt doing better on this treatment Labs 02-14-25 W 9.3, Electric [employer] 6.31, CRP 9.79 02-23-25 W 7.6, Electric [employer]er 4.34, CRP 3.18 03-06-25; W 4.9, Electric [employer]er 4.18,, CRP 3.45, PSA .12, UM WBC U 378 03-24-25 W 5.0, Electric [employer]er 3.13, CRP .66 Follow up; PRN repeat labs Rosa Garber 04/01/2025 Abscess of prostate (ICD-10 - N41.2) 01/21/2025 Iron deficiency anemia, unspecified iron deficiency anemia type (ICD-10 - D50.9) Proceed with diagnostic EGD and colonoscopy for iron deficiency anemia today. 01/27/2025 Other specified diabetes mellitus with hyperglycemia (ICD-10 - E13.65) Provided patient with written and verbal instructions on diabetes disease process including target A1C of 7% or less, diabetes medications, self-monitoring blood glucose, physical activity, hyperglycemia and hypoglycemia, and low carbohydrate diet/meal planning. Patient reports taking metformin, Lantus 20 Units once daily and NovoLog 10 Units usually two or three times daily and is able to self-inject without difficulty and has all insulin and supplies needed. Discussed increasing the Lantus two units every third day until FBG is less than 130mg/dL consistently patient agrees, and a refill is sent to his pharmacy. He will continue the NovoLog at 10 Units with meals for now. Patient reports using a fingerstick blood glucose monitor or the Sentisis[employer] Sulema 3 cgm daily. The Sulema 3 data is downloaded and information is interpreted and reviewed with patient. He has an average blood glucose of 225mg/dL. Reviewed target BG levels, signs and symptoms of hypoglycemia and hyperglycemia and treatment for each. He does not have a rescue kit, discussed use of glucagon and a new prescription is sent. Explained skin care before and after placing the Sulema sensors. Education on when to change the sensor reviewed. Verbal and written instructions given including [employer] Customer support contact information. Patient is able to exercise daily and working on increasing activity as tolerated. Discussed low-carb low sodium diet. Patient verbalizes understanding of low carbohydrate diet, discussed carbohydrate food groups and encouraged water and other non calorie beverages. Written and verbal instructions are given for meal planning. All questions answered and concerns addressed. Patient will follow up with his primary care clinic as directed and with Luc in three months.Total time spent with patient is 50 minutes 01/27/2025 Current use of insulin (ICD-10 - Z79.4) 01/30/2025 Acute kidney injury (ICD-10 - N17.9) 03/06/2025 Abscess of prostate (ICD-10 - N41.2) 1. 44 yo white male with a history of recurrent UTI's, T2DM, nephropathy, neuropathy, and cigarette smoker 2. Admission 02-07-25 with Prostatic abscess, and renal failure -discharged 02-24-25, then was admitted in [facility]. - Requested pt get discharge summary from that admission. 3. Diagnostics; -CT scan 02-07-25; 3 cm abscess noted within the prostate. - CT Scan 02-21-25; The right and left kidneys both appear enlarged and edematous with mild surrounding stranding, unchanged compared to 02/07/2025. Consider pyelonephritis. Some fluid collections along the borders of the prostate gland as shown previously. There is are not quite as well seen on the current study of February and resolved partially although evaluation is nonoptimal without intravenous contrast. Small amount of free fluid seen in the pelvis on 02/07/2025 has resolved. The gallbladder is somewhat distended but otherwise unremarkable without apparent stones or wall thickening or inflammation. Stable mild splenomegaly. . 02-08-25; RESECTION PROSTATE TRANSURETHRAL, transurethral resection/unroo fing of the prostatic abscess . 02-08-25 UC E. coli (R: amp, S: fortaz, cipro);02-07-25 Urine culture; E coli (R:amp, S: Fortaz, cipro) - 02-23-25 UC Neg at 48 hrs -02-26-25 BC Neg 6. Antibiotics; Day # - 03-06-25 Continue Fortaz post-op Day #26 (start date 02-09-25) duration 6 weeks - DC'd Rocephin due to nausea/vomiting 7. Gastritis, Peptic ulcer disease, improved on Carafate and Protonix. - Pt doing better on this treatment Labs 02-14-25 W 9.3, Electric [employer] 6.31, CRP 9.79 02-23-25 W 7.6, Electric [employer]er 4.34, CRP 3.18 Follow up; 1 week labs and UC Rosa Lea Garber 03/06/2025 Renal failure, unspecified chronicity (ICD-10 - N19) 1. 44 yo white male with a history of recurrent UTI's, T2DM, nephropathy, neuropathy, and cigarette smoker 2. Admission 02-07-25 with Prostatic abscess, and renal failure -discharged 02-24-25, then was admitted in [facility]. - Requested pt get discharge summary from that admission. 3. Diagnostics; -CT scan 02-07-25; 3 cm abscess noted within the prostate. - CT Scan 02-21-25; The right and left kidneys both appear enlarged and edematous with mild surrounding stranding, unchanged compared to 02/07/2025. Consider pyelonephritis. Some fluid collections along the borders of the prostate gland as shown previously. There is are not quite as well seen on the current study of February and resolved partially although evaluation is nonoptimal without intravenous contrast. Small amount of free fluid seen in the pelvis on 02/07/2025 has resolved. The gallbladder is somewhat distended but otherwise unremarkable without apparent stones or wall thickening or inflammation. Stable mild splenomegaly. 4. 02-08-25; RESECTION PROSTATE TRANSURETHRAL, transurethral resection/unroo fing of the prostatic abscess . 02-08-25 UC E. coli (R: amp, S: fortaz, cipro);02-07-25 Urine culture; E coli (R:amp, S: Fortaz, cipro) - 02-23-25 UC Neg at 48 hrs -02-26-25 BC Neg 6. Antibiotics; Day # 26 - 03-06-25 Continue Fortaz post-op Day #26 (start date 02-09-25) duration 6 weeks - DC'd Rocephin due to nausea/vomiting 7. Gastritis, Peptic ulcer disease, improved on Carafate and Protonix. - Pt doing better on this treatment Labs 02-14-25 W 9.3, [employer] 6.31, CRP 9.79 02-23-25 W 7.6, Electric Motor [employer]sembler 4.34, CRP 3.18 Follow up; 1 week labs and UC Rosa Garber 03/13/2025 Abscess of prostate (ICD-10 - N41.2) 1. 44 yo white male with a history of recurrent UTI's, T2DM, nephropathy, neuropathy, and cigarette smoker 2. Admission 02-07-25 with Prostatic abscess, and renal failure -discharged 02-24-25, then was admitted in [facility]. - Requested pt get discharge summary from that admission. 3. Diagnostics; -CT scan 02-07-25; 3 cm abscess noted within the prostate. - CT Scan 02-21-25; The right and left kidneys both appear enlarged and edematous with mild surrounding stranding, unchanged compared to 02/07/2025. Consider pyelonephritis. Some fluid collections along the borders of the prostate gland as shown previously. There is are not quite as well seen on the current study of February and resolved partially although evaluation is nonoptimal without intravenous contrast. Small amount of free fluid seen in the pelvis on 02/07/2025 has resolved. The gallbladder is somewhat distended but otherwise unremarkable without apparent stones or wall thickening or inflammation. Stable mild splenomegaly. 4. 02-08-25; RESECTION PROSTATE TRANSURETHRAL, transurethral resection/unroo fing of the prostatic abscess . 02-08-25 UC E. coli (R: amp, S: fortaz, cipro);02-07-25 Urine culture; E coli (R:amp, S: Fortaz, cipro) - 02-23-25 UC Neg at 48 hrs -02-26-25 BC Neg 6. Antibiotics; Day # 33 - 03-06-25 Continue Fortaz post-op Day #26 (start date 02-09-25) duration 6 weeks - DC'd Rocephin due to nausea/vomiting 7. Gastritis, Peptic ulcer disease, improved on Carafate and Protonix. - Pt doing better on this treatment Labs 02-14-25 W 9.3, Electric Motor [employer]er 6.31, CRP 9.79 02-23-25 W 7.6, Electric Motor [employer]sembler 4.34, CRP 3.18 03-06-25; W helper teacher. 4.18, CRP 3.45 Follow up; 1 week labs and UC Rosa Garber 04/01/2025 Urinary retention (ICD-10 - R33.9) 04/01/2025 Hematuria, unspecified type (ICD-10 - R31.9) 03/13/2025 Renal failure, unspecified chronicity (ICD-10 - N19) 1. 44 yo white male with a history of recurrent UTI's, T2DM, nephropathy, neuropathy, and cigarette smoker 2. Admission 02-07-25 with Prostatic abscess, and renal failure -discharged 02-24-25, then was admitted in [facility]. - Requested pt get discharge summary from that admission. 3. Diagnostics; -CT scan 02-07-25; 3 cm abscess noted within the prostate. - CT Scan 02-21-25; The right and left kidneys both appear enlarged and edematous with mild surrounding stranding, unchanged compared to 02/07/2025. Consider pyelonephritis. Some fluid collections along the borders of the prostate gland as shown previously. There is are not quite as well seen on the current study of February and resolved partially although evaluation is nonoptimal without intravenous contrast. Small amount of free fluid seen in the pelvis on 02/07/2025 has resolved. The gallbladder is somewhat distended but otherwise unremarkable without apparent stones or wall thickening or inflammation. Stable mild splenomegaly. 4. 02-08-25; RESECTION PROSTATE TRANSURETHRAL, transurethral resection/unroo fing of the prostatic abscess . 02-08-25 UC E. coli (R: amp, S: fortaz, cipro);02-07-25 Urine culture; E coli (R:amp, S: Fortaz, cipro) - 02-23-25 UC Neg at 48 hrs -02-26-25 BC Neg 6. Antibiotics; Day # 33 - 03-06-25 Continue Fortaz post-op Day #26 (start date 02-09-25) duration 6 weeks - DC'd Rocephin due to nausea/vomiting 7. Gastritis, Peptic ulcer disease, improved on Carafate and Protonix. - Pt doing better on this treatment Labs 02-14-25 W 9.3, Electric Motor Assembler 6.31, CRP 9.79 02-23-25 W 7.6, Electric Motor Assembler 4.34, CRP 3.18 03-06-25; W helper teacher. 4.18, CRP 3.45 Follow up; 1 week labs and UC Rosa Garber 01/27/2025 Diabetes education, encounter for (ICD-10 - Z71.89) 04/01/2025 Flank pain (ICD-10 - R10.9) 03/24/2025 Renal failure, unspecified chronicity (ICD-10 - N19) 1. 44 yo white male with a history of recurrent UTI's, T2DM, nephropathy, neuropathy, and cigarette smoker 2. Admission 02-07-25 with Prostatic abscess, and renal failure -discharged 02-24-25, then was admitted in [facility]. - Requested pt get discharge summary from that admission. 3. Diagnostics; -CT scan 02-07-25; 3 cm abscess noted within the prostate. - CT Scan 02-21-25; The right and left kidneys both appear enlarged and edematous with mild surrounding stranding, unchanged compared to 02/07/2025. Consider pyelonephritis. Some fluid collections along the borders of the prostate gland as shown previously. There is are not quite as well seen on the current study of February and resolved partially although evaluation is nonoptimal without intravenous contrast. Small amount of free fluid seen in the pelvis on 02/07/2025 has resolved. The gallbladder is somewhat distended but otherwise unremarkable without apparent stones or wall thickening or inflammation. Stable mild splenomegaly. 4. 02-08-25; RESECTION PROSTATE TRANSURETHRAL, transurethral resection/unroo fing of the prostatic abscess 5. 02-08-25 UC E. coli (R: amp, S: fortaz, cipro);02-07-25 Urine culture; E coli (R:amp, S: Fortaz, cipro) - 02-23-25 UC Neg at 48 hrs -02-26-25 BC Neg 6. Antibiotics; Day # 42 on 03-22-25 - DC Fortaz on 03-24-25 post-op (start date 02-09-25) duration 6 weeks AET 03-22-25 - [place] Cipro PO 500mg BID (start date 03-24-25) . Pt notified to [place] Cipro on 03-25-25 @ 945am 7. Gastritis, Peptic ulcer disease, improved on Carafate and Protonix. - Pt doing better on this treatment Labs 02-14-25 W 9.3, Electric Motor Assembler 6.31, CRP 9.79 02-23-25 W 7.6, Electric Motor Assembler 4.34, CRP 3.18 03-06-25; W 4.9, Electric Motor Assembler 4.18,, CRP 3.45, PSA .12, UM WBC U 378 03-24-25 W 5.0, Electric Motor Assembler 3.13, CRP .66 Follow up; PRN repeat labs Rosa Garber 04/01/2025 Incomplete bladder emptying (ICD-10 - R33.9) 01/27/2025 Uses self-applied continuous glucose monitoring device (ICD-10 - Z97.8) 01/27/2025 At risk for hypoglycemia (ICD-10 - Z91.89) 04/01/2025 Unspecified symptoms and signs involving the genitourinary system (ICD-10 - R39.9) 04/01/2025 Other Culture urine. 2 months wtih me ua and pvr. If pvr no improved then schedule cysto. LEO this week and show me. Refer to Dr. Santana. continue follow up with Dr. Mendez Plan Of Treatment Pending Test Test Name Order Date Basic Metabolic Panel (BMP) 96303 2024 Diagnostic Colonoscopy-[id number] 12/30/2024 EGD, Upper GI Diagnostic-[id number] Next Appt Details Provider Name:Nae pfeiffer, 04/28/2025 08:00:00 AM, [address] [facility] , [place], [address], Provider Name:Jameel freed, 06/03/2025 08:00:00 AM, [address], [place], [address], Provider Name:Jess sandoval, 06/16/2025 11:20:00 AM, [address] [place] [address] , [address], [place], [address], Insurance Providers Payer Name Payer Address Payer Phone Subscriber Number Group Number Insured Name Patient Relationship to Insured Coverage Start Date Coverage End Date Web TPA Nguyen [address] [place] [address] [id number] Shanel Martinez Self - patient is the insured [employer] [address] [place] [address] [phone] [id number] Shanel Martinez Self - patient is the insured Medical (General) History Medical History History ICD Code Diabetes with DKA Chicken Pox anemia bladder infections blood transfusion Back Trouble High Blood Pressure Surgical History Surgery Date(Month/Year) TURP vasectomy Hospitalization History Reason Date(Month/Year) DKA 2024
--- OUTSIDE RECORDS SUMMARY | 2025-04-27 17:04 | XMS_ITS | Clinical Summary ---
Author Organization [facility] Facility Address [address] [place] [address] Care Team Providers Care County Agent Name Role Phone Unavailable Primary Care Provider Unavailabl e Encounters Date Type Department Care Team Description 03/26/2025 Documentation Only [facility] [address] [place] [address] Kim Restrepo MD 03/26/2025 Transcribe Orders [facility] [address] [place] [address] Sil House MD Acute kidney failure, not otherwise specified (HCC) (Primary Dx) from Last 3 Months Social History Tobacco Use Types Packs/Day Years Used Date Smoking Tobacco: Never Assessed Sex and Gender Information Value Date Recorded Sex Assigned at Not on file Legal Sex Male 1:23 PM EDT Gender Identity Not on file Sexual Orientation Not on file Plan of Treatment Health Maintenance Due Date Last Done Comments Hepatitis B Vaccine (1 of 3 - 19+ 3-dose series) 2000 Diabetes: Hemoglobin A1C 03/04/2025 Diabetes: Ophthalmology Exam 03/04/2025 Diabetes: Pedal Pulse Checked 03/04/2025 Diabetes: Sensory Foot Exam 03/04/2025 Diabetes: Visual Foot Exam 03/04/2025 Influenza Vaccine (#1) 2025 08/04/2010 Pneumococcal Vaccine: Peds ( 0 to 5 Years) and At-Risk Patients (6 to 49 Years) Aged Out No longer eligible b ased on patient's age to complete this topic Insurance [facility] [employer] 1,2,3 ([employer])
--- OUTSIDE RECORDS SUMMARY | 2025-04-27 17:04 | XMS_ITS | Encounter Summary ---
Author Organization [facility], [facility] Address [address] [address] Phone Care Team Providers Care Ship Purser Name Role Phone Unavailable Primary Care Provider Unavailabl e Reason for Referral * Consultation (Routine) - Closed Specialty Diagnoses / Procedures Referred By Contac t Referred To Contact Nephrology Diagnoses Acute kidney failure, not otherwise specified (HCC) Sil House MD [address] [place] [address] Phone: tel: fax: [facility], [address] [address] Phone: tel: fax: Referral ID Status Reason Start Date Expiration Date V isits Requested Visits Authorized [id number] Closed Consult and Treat 03/05/2025 09/01/2025 1 1 Encounter Details Date Type Department Care Team (Latest Contact Info) Description 03/26/2025 Transcribe Orders [facility], [facility] [address] [id number] Sil House MD [address] [place], [place] [id number] Acute kidney failure, not otherwise specified (HCC) (Primary Dx) Social History Tobacco Use Types Packs/Day Years Used Date Smoking Tobacco: Never Assessed Sex and Gender Information Value Date Recorded Sex Assigned at Not on file Legal Sex Male 1:23 PM EDT Gender Identity Not on file Sexual Orientation Not on file documented as of this encounter Plan of Treatment Scheduled Referrals Name Type Priority Associated Diagnoses Order Schedule Ambulatory referral to Nephrology Outpatient Referral Routine Acute kidney failure, not otherwise specified (HCC) Expected: 03/26/2025, Expires: 04/25/2026 documented as of this encounter Visit Diagnoses Diagnosis Acute kidney failure, not otherwise specified (HCC)- Primary documented in this encounter
--- OUTSIDE RECORDS SUMMARY | 2025-04-27 17:05 | XMS_ITS | Clinical Summary ---
Author Organization 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 60 Tablet 2 03/05/2025 Active Active Problems Problem Noted Date Diagnosed Date Gastroesophageal reflux disease 03/03/2025 Iron deficiency anemia 03/03/2025 Elevated ferritin 03/03/2025 Intractable nausea and vomiting 02/28/2025 Protein-calorie malnutrition, moderate Dehydration 02/28/2025 Type 2 diabetes mellitus without complications 0 02/27/2025 Heavy tobacco smoker 02/27/2025 Acute renal failure superimp osed on stage 4 chronic kidney disease 02/27/2025 Microcytic anemia 02/27/2025 Hyponatremia 02/27/2025 Pyelonephritis 02/27/2025 Abscess, prostate 02/27/2025 Encounters Date Type Department Care Team Description 04/08/2025 External Device Data [facility] Provider, Abstract 04/01/2025 External Device Data [facility] Provider, Abstract 04/01/2025 External Device Data [facility] Provider, Abstract 03/26/2025 External Device Data [facility] Provider, Abstract 03/25/2025 External Device Data [facility] Provider, Abstract 03/25/2025 External Device Data [facility] Provider, Abstract 03/25/2025 Telephone [facility] Urology- [place] [address] [facility] [address] [place] [phone] Provider, Abstract uorlogy referral appointment 03/07/2025 Results Follow-Up [facility] Gastroenterology- [place] [address] [place] [phone] Ruben Turner, DO PATHOLOGY 03/06/2025 Abstract [facility] [address] [place] [phone] Provider, Abstract 03/06/2025 Abstract [facility] [address] [place] [address] Provider, Abstract 03/06/2025 Orders Only [facility] [address] [place] [address] Provider, Abstract 03/04/2025 2:40 PM CDT Anesthesia Event [facility] Endoscopy [address] [place] [address] Alejandro Simmons MD 03/04/2025 2:20 PM CDT - 03/04/2025 2:40 PM CDT Surgery [facility] Endoscopy [address] [place] [address] Ruben uTrner, DO SMALL BOWEL ENTEROSCOPY 03/04/2025 External Device Data [facility] Provider, Abstract 03/04/2025 External Device Data [facility] Provider, Abstract 03/04/2025 External Device Data [facility] Provider, Abstract 02/27/2025 4:43 PM CDT - 03/05/2025 2:23 PM CDT Hospital Encounter [facility] 3D Medical Telemetry [address] [place] [phone] Waqas Torrez MD Melton, Gregory A, DO Ovens, Lisa K, MD Kaur, MD Antwan Pybiggonephritis Discharge Dis[place]: [place] [facility] [place] Travel from Last 3 Months Social History Tobacco Use Types Packs/Day Years Used Date Smoking Tobacco: Former Cigarettes Tobacco Cessation:Counseling Given: Not Answered Alcohol Use Standard Drinks/Week Comments Never 0 (1 standard drink = 0.6 oz pur e alcohol) Sex and Gender Information Value Date Recorded Sex Assigned at Not on file Legal Sex Male 1:00 PM CDT Gender Identity Not on file Sexual Orientation Not on file Last Filed Vital Signs Vital Sign Reading Time Taken Comments Blood Pressure 129/87 03/05/2025 7:00 AM CDT Pulse 78 03/05/2025 7:00 AM CDT Temperature 36.6 C (97.8 F) 03/05/2025 7:00 AM CDT Respiratory Rate 18 03/05/2025 7:00 AM CDT Oxygen Saturation 98% 03/05/2025 7:00 AM CDT Inhaled Oxygen Concentration - - Weight 73.3 kg (161 lb 9.6 oz) 03/05/2025 4:35 A M CDT Height 177.8 cm (5' 10 ) 02/27/2025 1:41 PM CDT Body Mass Index 23.19 02/27/2025 1:41 PM CDT Plan of Treatment Health Maintenance Due Date Last Done Comments DIABETES ANNUAL FOOT EXAM 1999 DIABETES ANNUAL RETINAL EXAM 1999 DIABETES MICROALBUMIN ANNUAL SCREEN 1999 LDL CHOLESTEROL ANNUAL 1999 HEPATITIS B VACCINES (1 of 3 - 19+ 3-dose series) 2000 INFLUENZA VACCINE (#1) 2025 DIABETES HBA1C Q 6 MONTHS 08/11/2025 02/08/2025 DTAP/TDAP/TD VACCINES (7 - Td or Tdap) 06/17/2029 06/17/2019, 02/22/2010, 08/12/1998, Additional history exists Abdominal Aortic Aneurysm (AAA) Screening Completed 02/27/2025 HPV VACCINES Aged Out No longer eligi ble based on patient's age to complete this topic Procedures Procedure Name Priority Date/Time Associated Diagnosis Comments TELEMETRY REPORT 03/06/2025 12:3 1 AM CDT POC GLUCOSE Routine 03/05/2025 7:51 AM CDT CBC WITH DIFFERENTIAL Routine 03/05/2025 5:58 AM CDT RENAL FUNCTION PANEL Routine 03/05/2025 5:58 AM CDT POC GLUCOSE Routine 03/05/2025 5:01 AM CDT POC GLUCOSE Routine 03/05/2025 12:10 AM CDT POC GLUCOSE Routine 03/04/2025 8:26 PM CDT POC GLUCOSE Routine 03/04/2025 4:06 PM CDT UPPER ENDOSCOPY REPORT 03/04/2025 3:08 PM CDT PATHOLOGY Pathology 03/04/2025 2:48 PM CDT SMALL BOWEL ENTEROSCOPY 03/04/2025 2:20 PM CDT POC GLUCOSE Routine 03/04/2025 11:27 AM CDT POC GLUCOSE Routine 03/04/2025 7:13 AM CDT POC GLUCOSE Routine 03/04/2025 4:59 AM CDT CBC WITH DIFFERENTIAL Routine 03/04/2025 1:30 AM CDT RENAL FUNCTION PANEL Routine 03/04/2025 1:30 AM CDT PROTIME-INR Routine 03/04/2025 1:30 AM CDT MAGNESIUM LEVEL Routine 03/04/2025 1:30 AM CDT POC GLUCOSE Routine 03/04/2025 12:16 AM CDT POC GLUCOSE Routine 03/03/2025 8:18 PM CDT POC GLUCOSE Routine 03/03/2025 4:50 PM CDT POC GLUCOSE Routine 03/03/2025 11:56 AM CDT MAGNESIUM LEVEL Routine 03/03/2025 5:07 AM CDT CBC WITH DIFFERENTIAL Routine 03/03/2025 5:07 AM CDT PHOSPHORUS Routine 03/03/2025 5:07 AM CDT COMPREHENSIVE METABOLIC PANEL Routine 03/03/2025 5:07 AM CDT POC GLUCOSE Routine 03/03/2025 4:18 AM CDT POC GLUCOSE Routine 03/02/2025 11:25 PM CDT POC GLUCOSE Routine 03/02/2025 8:43 PM CDT POC GLUCOSE Routine 03/02/2025 5:36 PM CDT POC GLUCOSE Routine 03/02/2025 12:26 PM CDT TRIGLYCERIDE Stat 03/02/2025 9:14 AM CDT PHOSPHORUS Routine 03/02/2025 9:14 AM CDT MAGNESIUM LEVEL Routine 03/02/2025 9:14 AM CDT COMPREHENSIVE METABOLIC PANEL Routine 03/02/2025 9:14 AM CDT CBC WITH DIFFERENTIAL Routine 03/02/2025 9:14 AM CDT POC GLUCOSE Routine 03/02/2025 8:05 AM CDT POC GLUCOSE Routine 03/02/2025 3:35 AM CDT POC GLUCOSE Routine 03/02/2025 12:18 AM CDT POC GLUCOSE Routine 03/01/2025 7:56 PM CDT POC GLUCOSE Routine 03/01/2025 5:09 PM CDT EKG 12-LEAD Stat 03/01/2025 5:03 PM CDT LIPASE Stat 03/01/2025 2:39 PM CDT BASIC METABOLIC PANEL Routine 03/01/2025 2:39 PM CDT CBC WITH DIFFERENTIAL Routine 03/01/2025 2:39 PM CDT POC GLUCOSE Routine 03/01/2025 12:09 PM CDT POC GLUCOSE Routine 03/01/2025 7:40 AM CDT POC GLUCOSE Routine 02/28/2025 3:40 PM CDT SYPHILIS SEROLOGY W/REFLEX Routine 02/28/2025 10:54 AM CDT HIV DETECTION W/REFLX CONFIRMATION Routine 02/28/2025 10:54 AM CDT POC GLUCOSE Routine 02/28/2025 9:53 AM CDT POC GLUCOSE Routine 02/28/2025 9:16 AM CDT POC GLUCOSE Routine 02/28/2025 8:44 AM CDT POC GLUCOSE Routine 02/28/2025 8:19 AM CDT CORTISOL LEVEL Routine 02/28/2025 4:42 AM CDT TSH REFLEXIVE Routine 02/28/2025 4:42 AM CDT VITAMIN B12 AND FOLATE Routine 02/28/2025 4:42 AM CDT CBC WITH DIFFERENTIAL Routine 02/28/2025 4:42 AM CDT COMPREHENSIVE METABOLIC PANEL Routine 02/28/2025 4:42 AM CDT MAGNESIUM LEVEL Routine 02/28/2025 4:42 AM CDT PHOSPHORUS Routine 02/28/2025 4:42 AM CDT OT EVAL AND TREAT Routine 02/27/2025 11: 34 PM CDT LACTIC ACID Stat 02/27/2025 8:21 PM CDT TROPONIN 6 HR, 5TH GEN Timed Study 02/27/2025 8:21 PM CDT BLOOD CULTURE Stat 02/27/2025 8:21 PM CDT BLOOD CULTURE Stat 02/27/2025 8:21 PM CDT BLOOD CULTURE Stat 02/27/2025 8:21 PM CDT BLOOD CULTURE Stat 02/27/2025 8:[address] ABDOMEN PELVIS WO CONTRAST Stat 02/27/2025 6:49 PM CDT FERRITIN Stat 02/27/2025 6:06 PM CDT IRON, TIBC, AND PERCENT SATURATION Stat 02/27/2025 6:06 PM CDT CK Stat 02/27/2025 6:06 PM CDT SODIUM LEVEL Stat 02/27/2025 6:06 PM CDT TROPONIN 2 HR, 5TH GEN Timed Study 02/27/2025 6:06 PM CDT OSMOLALITY, URINE Stat 02/27/2025 4:2 4 PM CDT CREATININE, RANDOM URINE Stat 02/27/2025 4:24 PM CDT SODIUM, RANDOM URINE Stat 02/27/2025 4:24 PM CDT UREA NITROGEN, RANDOM URINE Stat 02/27/2025 4:24 PM CDT EXTRA TUBE (URINE ALBRECHT) Stat 02/27/2025 4:24 PM CDT URINALYSIS W/REFLEX MICROSCOPIC Stat 02/27/2025 4:24 PM CDT URINE CULTURE Stat 02/27/2025 4:24 PM CDT LIPASE Stat 02/27/2025 3:35 PM CDT TROPONIN BASELINE, 5TH GEN Stat 02/27/2025 3:35 PM CDT COMPREHENSIVE METABOLIC PANEL Stat 02/27/2025 3:35 PM CDT CBC WITH DIFFERENTIAL Stat 02/27/2025 3:35 PM CDT EKG 12-LEAD Stat 02/27/2025 3:12 PM CDT XR CHEST PA OR AP 1 VW Stat 02/27/2025 3:01 PM CDT CRITICAL CARE Routine 02/27/2025 1:00 PM CDT BASIC METABOLIC PANEL Routine 02/24/2025 8:46 AM CDT BASIC METABOLIC PANEL Routine 02/23/2025 8:47 AM CDT COMPREHENSIVE METABOLIC PANEL Routine 02/22/2025 8:47 AM CDT COMPREHENSIVE METABOLIC PANEL Routine 02/21/2025 8:48 AM CDT COMPREHENSIVE METABOLIC PANEL Routine 02/14/2025 8:31 AM CDT COMPREHENSIVE METABOLIC PANEL Routine 02/13/2025 8:32 AM CDT COMPREHENSIVE METABOLIC PANEL Routine 02/12/2025 8:32 AM CDT BASIC METABOLIC PANEL Routine 02/11/2025 8:33 AM CDT BASIC METABOLIC PANEL Routine 02/10/2025 8:34 AM CDT BASIC METABOLIC PANEL Routine 02/09/2025 8:35 AM CDT COMPREHENSIVE METABOLIC PANEL Routine 02/08/2025 8:38 AM CDT PROTIME-INR Routine 02/08/2025 PROTIME-INR Routine 02/08/2025 HEMOGLOBIN A1C Routine 02/08/2025 COMPREHENSIVE METABOLIC PANEL Routine 02/07/2025 8:41 AM CDT COMPREHENSIVE METABOLIC PANEL Routine 02/07/2025 8:39 AM CDT PROTIME-INR Routine 02/07/2025 BASIC METABOLIC PANEL Routine 01/31/2025 8:30 AM CDT from Last 3 Months Results * TELEMETRY REPORT (03/06/2025 12:31 AM CDT) us Provider Scanning ECG ORDERABLES Final Result * (ABNORMAL) POC GLUCOSE (03/05/2025 7:51 AM CDT) Only the most recent of29 resultswithin the time period is included. GLUCOSE POC 190(H) 74 - 99 mg/dL 03/05/2025 7:51 AM CDT [facility] SPECIMEN SOURCE, GLUCOSE POC Capillary 03/05/2025 7:51 AM CDT [facility] Blood, whole 03/05/2025 7:51 AM CDT 03/05/2025 8:05 AM CDT Antwan De La Cruz MD POINT OF CARE TESTING Final Result [facility] CLIA # [id number] [id number] [place] [address] * (ABNORMAL) CBC WITH DIFFERENTIAL (03/05/2025 5:58 AM CDT) Only the most recent of7 resultswithin the time period is included. WBC 4.8 4.5 - 11.0 K/uL 03/05/2025 6:39 AM T [facility] RBC 3.54(L) 4.60 - 6.20 M/uL 03/05/2025 6:39 AM T [facility] HEMOGLOBIN 9.1(L) 14.0 - 18.0 g/dL 03/05/2025 6:39 AM [facility] HEMATOCRIT 27.4(L) 41.0 - 53.0 % 03/05/2025 6:39 AM CDT [facility] MCV 77.4(L) 84.0 - 103.0 fL 03/05/2025 6:39 AM CDT [facility] MCH 25.7(L) 27.0 - 34.0 pg 03/05/2025 6:39 AM T [facility] MCHC 33.2 30.0 - 35.0 g/dL 03/05/2025 6:39 AM CDT [facility] PLATELETS 168 140 - 440 K/uL 03/05/2025 6:39 AM [facility] MPV 10.4 8.9 - 12.8 fL 03/05/2025 6:39 AM [facility] RDW 17.1(H) 11.0 - 14.5 % 03/05/2025 6:39 AM [facility] RDW-STDEV 48.6 37.0 - 54.0 fL 03/05/2025 6:39 AM [facility] NEUTROPHILS 59 42 - 75 % 03/05/2025 6:39 AM [facility] LYMPHOCYTES 21(L) 24 - 44 % 03/05/2025 6:39 AM CDT [facility] MONOCYTES 9 2 - 10 % 03/05/2025 6:39 AM CDT [facility] EOSINOPHILS 11(H) 0 - 7 % 03/05/2025 6:39 AM CDT [facility] BASOPHILS 1 0 - 1 % 03/05/2025 6:39 AM CDT [facility] IMMATURE GRANULOCYTES 1 0 - 2 % 03/05/2025 6:39 AM CDT [facility] NEUTROPHIL ABSOLUTE 2.84 2.00 - 8.00 K/uL 03/05/2025 6:39 AM CDT [facility] LYMPHOCYTE ABSOLUTE 1.00(L) 1.20 - 4.00 K/uL 03/05/2025 6:39 AM CDT [facility] MONOCYTE ABSOLUTE 0.41 0.10 - 0.60 K/uL 03/05/2025 6:39 AM CDT [facility] EOSINOPHIL ABSOLUTE 0.52 0.00 - 0.70 K/uL 03/05/2025 6:39 AM CDT [facility] BASOPHILS ABSOLUTE 0.03 0.00 - 0.20 K/uL 03/05/2025 6:39 AM CDT [facility] IMMATURE GRANULOCYTES ABSOLUTE 0.04 0.00 - 0.10 K/uL 03/05/2025 6:39 AM CDT [facility] SMEAR REVIEWED: NA - Not Applicable 03/05/2025 6:39 AM T [facility] Blood Venipuncture / Unknown 03/05/2025 5:58 AM CDT 03/05/2025 6:33 AM CDT us Ruben Turner DO HEMATOLOGY ORDERABLES Final R esult [facility] CLIA # [id number] [facility] [address] [place] [address] * (ABNORMAL) RENAL FUNCTION PANEL (03/05/2025 5:58 AM CDT) Only the most recent of2 resultswithin the time period is included. SODIUM 128(L) 136 - 145 mmol/L 03/05/2025 7:11 AM [facility] POTASSIUM 4.3 3.5 - 5.1 mmol/L 03/05/2025 7:11 AM [facility] CHLORIDE 94(L) 98 - 107 mmol/L 03/05/2025 7:11 AM [facility] CO2 20(L) 22 - 29 mmol/L 03/05/2025 7:11 AM [facility] CALCIUM 9.2 8.6 - 10.0 mg/dL 03/05/2025 7:11 AM [facility] BUN 53(H) 6 - 20 mg/dL 03/05/2025 7:11 AM [facility] CREATININE 4.12(H) 0.67 - 1.17 mg/dL 03/05/2025 7:11 AM [facility] GLUCOSE 182(H) 74 - 99 mg/dL 03/05/2025 7:11 AM [facility] ALBUMIN 3.4(L) 3.5 - 5.2 g/dL 03/05/2025 7:11 AM [facility] PHOSPHORUS 4.1 2.5 - 4.5 mg/dL 03/05/2025 7:11 AM [facility] GFR 18(L) >=60 mL/min/1. 73 sq meter 03/05/2025 7:11 AM [facility] Comment:eGFR calculated with 2020 CKD-EPI equation. Vegetarian diet, extremely high or low muscle mass, and may affect results. Cystatin C with Glomerular Filtration Rate is a suitable alternative for these patients. ANION GAP 14 9 - 20 mmol/L 03/05/2025 7:11 AM [facility] Blood Venipuncture / Unknown 03/05/2025 5:58 AM CDT 03/05/2025 6:33 AM CDT us Ruben Turner DO CHEMISTRY ORDERABLES Final Re sult [id number] [id number] [place] [address] * UPPER ENDOSCOPY REPORT (03/04/2025 3:08 PM CDT) Narrative Procedure Note Ruben Turner DO - 03/04/2025 3:08 PM CDT [facility] GI Patient Name: Robert Martinez Procedure Date: 03/04/2025 Date of : 1980 Admit Type: Inpatient Age: 44 Attending MD: Ruben Turner DO, Procedure: Upper GI endoscopySmall bowel enteroscopy and bx Indications: Nausea with vomiting, Unexplained iron deficiency anemia Providers: Ruben Turner DO Referring MD: Medicines: Propofol per Anesthesia Complications: No immediate complications. Procedure: Pre-Anesthesia Assessment: - Prior to the procedure, a History and Physical was performed, and patient medications, allergies and sensitivities were reviewed. The patient's tolerance of previous anesthesia was reviewed. - The risks and benefits of the procedure and the sedation options and risks were discussed with the patient. All questions were answered and informed consent was obtained. - ASA Grade Assessment: III - A patient with severe systemic disease. The Colonoscope was introduced through the mouth, and advanced to the jejunum. Small bowel enteroscopy was deemed necessary. The upper GI endoscopy was accomplished without difficulty. The patient tolerated the procedure well. Estimated Blood Loss: Estimated blood loss: none. Findings: moderate gastritis- bx obtained mild esophagitis normal small bowel to 140 cm Recommendation: - Await pathology results. soft diet as tolerated continue PPI IV while here, then BID orally as outpatient for 3 months decrease Zofran to 4mg iv q 6 hours will sign off. Please notify if needed Ruben Turner DO 03/04/2025 3:08:32 PM This report has been signed electronically. Number of Addenda: 0 Note Initiated On: 03/04/2025 2:35 PM Scope Withdrawal Time Scope In: Scope Out: [address] [place], [place] Ruben Turner DO GI PROCEDURE ORDERABLES Final Result * PATHOLOGY (03/04/2025 2:48 PM CDT) CASE REPORT Surgical Pathology Report Case: [id number] Authorizing Provider: Ruben Turner DO Collected: 03/04/2025 02:48 PM Ordering Location: [facility] Received: 03/05/2025 06:51 AM Endoscopy Pathologist: Amber Bermudez MD Specimen: Stomach 7:19 AM CDT [facility] FINAL DIAGNOSIS A. Stomach, biopsies - Superficial biopsy of gastric mucosa showing features suggestive of reactive gastropathy - No active gastritis, intestinal metaplasia, dysplasia, or malignancy - Immunohistochemistry for Helicobacter pylori is negative Amber Bermudez MD [id number] 7:19 AM T [facility] at 0719 CDT GROSS DESCRIPTION A. Received in formalin labeled [place] -stomach biopsies rule out H. pylori is a single fragment of hewitt-pink soft tissue, 0.4 cm in greatest dimension. The specimen is submitted entirely in A1. Dania Dos Santos 5 7:19 AM CDT [facility] MICROSCOPIC DESCRIPTION Immunohistochemistry for Helicobacter pylori was ordered on block A1 after review of the H&E stained slides based on clinician request to evaluate for infection. 5 7:19 AM CDT [facility] OPERATIVE PROCEDURE 1: SMALL BOWEL ENTEROSCOPY 5 7:19 AM T [facility] CLINICAL INFORMATION R/o H Pylori 5 7:19 AM T [facility] COMMENT The [employer] voice-activated dictation system may have been used in the creation of this report. Inherent to this system is the possibility of errors in syntax, grammar, punctuation, or other areas that could impact interpretation. If there are interpretive questions about the report, please contact the performing pathologist. Unless gross only is specified in the diagnosis, the microscopic examination substantiates the above cited diagnosis. The performance characteristics of all immunohistochemical stains cited in this report (if any) were determined by the Diagnostic Immunohistochemistry Laboratory of [facility] in compliance with CLIA'88 regulations. Some of these tests rely on the use of analyte specific reagents and are subject to specific labeling requirements by the FDA. All controls show appropriate reactivity. This testing was developed by the Diagnostic Immunohistochemistry Laboratory of [facility]. It has not been cleared or approved by the FDA. The FDA has determined that such clearance or approval is not necessary. 7:19 AM CDT [facility] Tissue ENTIRE STOMACH / Unknown Collection / Unknown 03/04/2025 2:48 PM CDT 03/05/2025 6:51 AM CDT Comment:R/o H Pylori Ruben Turner DO PATHOLOGY/CYTOLOGY ORDERABLES Final Result Performing Organization Address City/State/[facility] Co de Phone Number [facility] CLIA # [id number] [address] [place] [address] * (ABNORMAL) PROTIME-INR (03/04/2025 1:30 AM CDT) Only the most recent of4 resultswithin the time period is included. PROTIME 17.1(H) 12.7 - 14.9 Seconds 03/04/2025 2:21 AM CDT [facility] INR 1.3(H) 0.8 - 1.2 03/04/2025 2:21 AM CDT [facility] Blood Venipuncture / Unknown 03/04/2025 1:30 AM CDT 03/04/2025 2:04 AM CDT Narrative [facility] - 03/04/2025 2:21 AM CDT Expected Values for INR: DVT/PE Goal INR 2.5; range 2.0 - 3.0 Valve Replacement Tissue Goal INR 2.5; range 2.0 - 3.0 Valve Replacement Mechanical Goal INR 3.0; range 2.5 - 3.5 POST-PR Goal INR 2.5; range 2.0 - 3.0 or Goal INR 3.0; range 2.5 - 3.5 Atrial Fibrillation Goal INR 2.5; range 2.0 - 3.0 Ischemic Stroke Goal INR 2.5; range 2.0 - 3.0 Aurora Cabrales NP HEMATOLOGY ORDERABLES Final Resu lt Performing Organization Address City/[facility] Co de Phone Number [facility] CLIA # [id number] [address] [place] [address] * MAGNESIUM LEVEL (03/04/2025 1:30 AM CDT) Only the most recent of4 resultswithin the time period is included. MAGNESIUM 2.3 1.6 - 2.6 mg/dL 03/04/2025 2:38 AM CDT [facility] Blood Venipuncture / Unknown 03/04/2025 1:30 AM CDT 03/04/2025 2:05 AM CDT Racheal Orozco MD CHEMISTRY ORDERABLES Final Resul t Performing Organization Address [facility] de Phone Number [facility] CLIA # [id number] [address] [place] [id number] * PHOSPHORUS (03/03/2025 5:07 AM CDT) Only the most recent of3 resultswithin the time period is included. PHOSPHORUS 3.7 2.5 - 4.5 mg/dL 03/03/2025 6:15 AM CDT [facility] Blood Venipuncture / Unknown 03/03/2025 5:07 AM CDT 03/03/2025 5:39 AM CDT Racheal Orozco MD CHEMISTRY ORDERABLES Final Resul t [facility] CLIA # [id number] [address] [address] [place] [address] * (ABNORMAL) COMPREHENSIVE METABOLIC PANEL (03/03/2025 5:07 AM CDT) Only the most recent of12 resultswithin the time period is included. SODIUM 130(L) 136 - 145 mmol/L 03/03/2025 6:15 AM T [facility] POTASSIUM 4.5 3.5 - 5.1 mmol/L 03/03/2025 6:15 AM T [facility] CHLORIDE 96(L) 98 - 107 mmol/L 03/03/2025 6:15 AM T [facility] CO2 22 22 - 29 mmol/L 03/03/2025 6:15 AM T [facility] CALCIUM 9.2 8.6 - 10.0 mg/dL 03/03/2025 6:15 AM T [facility] BUN 40(H) 6 - 20 mg/dL 03/03/2025 6:15 AM T [facility] CREATININE 4.15(H) 0.67 - 1.17 mg/dL 03/03/2025 6:15 AM T [facility] GLUCOSE 155(H) 74 - 99 mg/dL 03/03/2025 6:15 AM CDT [facility] TOTAL PROTEIN 7.4 6.4 - 8.3 g/dL 03/03/2025 6:15 AM T [facility] ALBUMIN 3.6 3.5 - 5.2 g/dL 03/03/2025 6:15 AM T [facility] BILIRUBIN TOTAL 0.5 0.0 - 1.0 mg/dL 03/03/2025 6:15 AM T [facility] ALKALINE PHOSPHATASE 93 40 - 129 U/L 03/03/2025 6:15 AM T [facility] AST 11 10 - 50 U/L 03/03/2025 6:15 AM CDT [facility] ALT 9 <=50 U/L 03/03/2025 6:15 AM CDT [facility] GFR 17(L) >=60 mL/min/1. 73 sq meter 03/03/2025 6:15 AM CDT [facility] Comment:eGFR calculated with 2020 CKD-EPI equation. Vegetarian diet, extremely high or low muscle mass, and may affect results. Cystatin C with Glomerular Filtration Rate is a suitable alternative for these patients. ANION GAP 12 9 - 20 mmol/L 03/03/2025 6:15 AM CDT [facility] Blood Venipuncture / Unknown 03/03/2025 5:07 AM CDT 03/03/2025 5:39 AM CDT Racheal Orozco MD CHEMISTRY ORDERABLES Final Resul t Performing Organization Address [facility] de Phone Number [facility] CLIA # [id number] [address] [address] * TRIGLYCERIDE (03/02/2025 9:14 AM CDT) TRIGLYCERIDE 126 <150 mg/dL 03/02/2025 1:08 PM CDT [facility] Blood Venipuncture / Unknown 03/02/2025 9:14 AM CDT 03/02/2025 9:25 AM CDT Narrative [facility] - 03/02/2025 1:08 PM CDT TRIGLYCERIDES mg/dL Normal < 150 Borderline High 150 - 199 High 200 - 499 Very High >= 500 Based on AHA/NCEP Guidelines. Racheal Orozco MD CHEMISTRY ORDERABLES Final Resul t Performing Organization Address [facility] Co de Phone Number [facility] CLIA # [id number] [address] [address] * EKG 12-LEAD (03/01/2025 5:03 PM CDT) Only the most recent of2 resultswithin the time period is included. 03/01/2025 5:03 PM CDT Narrative INTERFACE SYSTEM - 03/02/2025 1:08 PM [address]T [address] [address] Test Date: 2025-03-01 Pat Name: [facility] Department: 12 Room: [address] [place] [address] Gender: Male Language Teacher: [id number] : 1980 Requested By: Order Number: [id number] Thai LYNN: Maria Dolores Muniz Measurements Intervals [place] Rate: 83 P: 56 MT: 176 QRS: 32 QRSD: 90 T: 64 QT: 400 QTc: 470 Interpretive Statements Normal sinus rhythm Normal ECG Electronically Signed On 03-02-2025 13:08:57 CDT by Maria Dolores Muniz Procedure Note Provider, Historical - 03/02/[address] [address] Test Date: 2025-03-01 Pat Name: [facility] Department: 12 Room: [address] [place] [address] Gender: Male Language Teacher: [id number] : 1980 Requested By: Order Number: [id number] Thai LYNN: Maria Dolores Muniz Measurements Intervals [place] Rate: 83 P: 56 MT: 176 QRS: 32 QRSD: 90 T: 64 QT: 400 QTc: 470 Interpretive Statements Normal sinus rhythm Normal ECG Electronically Signed On 03-02-2025 13:08:57 CDT by Maria Dolores Muniz us Racheal Orozco MD ECG ORDERABLES Final Result INTERFACE SYSTEM Refer to clinic/hospital department * LIPASE (03/01/2025 2:39 PM CDT) Only the most recent of2 resultswithin the time period is included. LIPASE 47 13 - 60 U/L 03/01/2025 7:39 PM CDT [facility] Blood Venipuncture / Unknown 03/01/2025 2:39 PM CDT 03/01/2025 2:50 PM CDT us Racheal Orozco MD CHEMISTRY ORDERABLES Final Resul t [facility] CLIA # [id number] [address] [place] [address] [place] [address] * (ABNORMAL) BASIC METABOLIC PANEL (03/01/2025 2:39 PM CDT) Only the most recent of7 resultswithin the time period is included. SODIUM 128(L) 136 - 145 mmol/L 03/01/2025 3:22 PM T [facility] POTASSIUM 4.0 3.5 - 5.1 mmol/L 03/01/2025 3:22 PM T [facility] CHLORIDE 94(L) 98 - 107 mmol/L 03/01/2025 3:22 PM T [facility] CO2 22 22 - 29 mmol/L 03/01/2025 3:22 PM T [facility] CALCIUM 8.4(L) 8.6 - 10.0 mg/dL 03/01/2025 3:22 PM T [facility] BUN 45(H) 6 - 20 mg/dL 03/01/2025 3:22 PM T [facility] CREATININE 4.01(H) 0.67 - 1.17 mg/dL 03/01/2025 3:22 PM T [facility] GLUCOSE 272(H) 74 - 99 mg/dL 03/01/2025 3:22 PM [facility] GFR 18(L) >=60 mL/min/1. 73 sq meter 03/01/2025 3:22 PM T [facility] Comment:eGFR calculated with 2020 CKD-EPI equation. Vegetarian diet, extremely high or low muscle mass, and may affect results. Cystatin C with Glomerular Filtration Rate is a suitable alternative for these patients. ANION GAP 12 9 - 20 mmol/L 03/01/2025 3:22 PM CDT [facility] Blood Venipuncture / Unknown 03/01/2025 2:39 PM CDT 03/01/2025 2:50 PM CDT us Racheal Orozco MD CHEMISTRY ORDERABLES Final Resul t Performing Organization Address [facility]/ZIP Co de Phone Number [facility] CLIA # [id number] [address] [address] [place] [address] * SYPHILIS SEROLOGY W/REFLEX (02/28/2025 10:54 AM CDT) Pathologist [facility] T PALLIDUM ANTIBODIES NEGATIVE NEGATIVE 03/07/2025 9:18 AM CDT [facility] Comment: No antibodies to T. pallidum (the agent causing syphilis) were detected in the specimen. This result, however, does not exclude very recent T. pallidum infection; testing of a second specimen, collected 2-4 weeks after this specimen, is recommended if the index of suspicion for recent infection is high. Blood Venipuncture / Unknown 02/28/2025 10:54 AM CDT 02/28/2025 12:25 PM CDT Narrative [facility] - 03/07/2025 9:18 AM CDT Performing Organization Information: Site ID: CB Name[id number] Address: [address] [place] [id number] Director: Yvan Jaime us Sergey Segovia MD CHEMISTRY ORDERABLES F inal Result Performing Organization Address City/[facility]/ZIP Co de Phone Number [facility] * HIV DETECTION W/REFLX CONFIRMATION (02/28/2025 10:54 AM CDT) Pathologist [facility] HIV-1 AND 2 ABS AND HIV-1 AG Non-reacti ve Non-React cecile 02/28/2025 12:49 PM CDT [facility] Blood Venipuncture / Unknown 02/28/2025 10:54 AM CDT 02/28/2025 11:56 AM CDT us Sergey Segovia MD CHEMISTRY ORDERABLES F inal Result Performing Organization Address [facility] Co de Phone Number [facility] CLIA # [id number] [address] [address] * TSH REFLEXIVE (02/28/2025 4:42 AM CDT) TSH 3.96 0.27 - 4.20 uIU/mL 02/28/2025 5:40 AM CDT [facility] Blood Venipuncture / Unknown 02/28/2025 4:42 AM CDT 02/28/2025 4:53 AM CDT us Otto Hampton DO CHEMISTRY ORDERABLES Final R esult Performing Organization Address [facility] Co de Phone Number [facility] CLIA # [id number] [facility] [address] * VITAMIN B12 AND FOLATE (02/28/2025 4:42 AM CDT) VITAMIN B12 721 211 - 946 pg/mL 02/28/2025 5:51 AM CDT [facility] FOLATE, SERUM 7.8 3.1 - 17.5 ng/mL 02/28/2025 5:51 AM CDT [facility] Blood Venipuncture / Unknown 02/28/2025 4:42 AM CDT 02/28/2025 4:57 AM CDT us Otto Hampton DO CHEMISTRY ORDERABLES Final R esult [facility] CLIA # [id number] [address] [address] * CORTISOL LEVEL (02/28/2025 4:42 AM CDT) CORTISOL LEVEL 5.9 ug/dL 02/28/2025 5:38 AM CDT [facility] Comment: Cortisol Reference Range Morning Hours 6-10 a.m. 6.0-18.4 ug/dL Afternoon Hours 4-8 p.m. 2.7-10.5 ug/dL Blood Venipuncture / Unknown 02/28/2025 4:42 AM CDT 02/28/2025 4:57 AM CDT us Otto Hampton DO CHEMISTRY ORDERABLES Final R esult Performing Organization Address [facility]/ZIP Co de Phone Number [facility] CLIA # [id number] [address] [address] * (ABNORMAL) TROPONIN 6 HR, 5TH GEN (02/27/2025 8:21 PM CDT) TROPONIN T, 6 HR 5TH GEN 50(H) <=15 ng/L 02/27/2025 9:04 PM CDT [facility] DELTA 6HR TROPONIN T -10 See Interp. 02/27/2025 9:04 PM CDT [facility] Blood Venipuncture / Unknown 02/27/2025 8:21 PM CDT 02/27/2025 8:32 PM CDT Narrative [facility] - 02/27/2025 9:04 PM CDT Troponin elevated. Delta indeterminate. Delay in collection of timed specimen beyond recommended collection interval. Results must be interpreted in clinical context. us Emy Bautista [employer]PER[employer] CHEMISTRY ORDERABLES Fi nal Result Performing Organization Address [facility]/State/ZIP Co de Phone Number [facility] CLIA # [id number] [address] [address] [place], [place] [address] * LACTIC ACID (02/27/2025 8:21 PM CDT) LACTIC ACID 0.8 <=2.0 mmol/L 02/27/2025 8:59 PM CDT [facility] Blood Venipuncture / Unknown 02/27/2025 8:21 PM CDT 02/27/2025 8:28 PM CDT us Otto Hampton DO CHEMISTRY ORDERABLES Final R esult Performing Organization Address [facility] Co de Phone Number [facility] CLIA # [id number] [address] [address] [place] [address] * BLOOD CULTURE (02/27/2025 8:21 PM CDT) Only the most recent of2 resultswithin the time period is included. Pathologist [facility] BLOOD CULTURE No growth 03/04/2025 9:02 PM CDT [facility] Blood (Peripheral) Venipuncture / Unknown 02/27/2025 8:21 PM CDT 02/27/2025 8:29 PM CDT us Otto Hampton DO MICROBIOLOGY - GENERAL ORDER BALDOMERO Final Result Performing Organization Address City/[facility] Co de Phone Number [facility] CLIA # [id number] [address] [address] [place] [address] * CT ABDOMEN PELVIS WO CONTRAST (02/27/2025 6:49 PM CDT) Anatomical Region Laterality Modality Abdomen Computed Tomogra phy 02/27/2025 6:42 PM CDT Impressions 02/27/2025 7:22 PM CDT IMPRESSION: Please see below. Exam: CT ABDOMEN PELVIS WO CONTRAST Date/Time of Exam: 02/27/2025 6:49 PM Reason For Exam: hx of prostate abscess, UTI, Micro abscess in kidney, RENNY. Diagnosis: Acute renal failure superimposed on stage 4 chronic kidney disease, unspecified acute renal failure type (CMS/HCC); Acute renal failure superimposed on stage 4 chronic kidney disease, unspecified acute renal failure type (CMS/HCC). Technique: CT of the abdomen and pelvis was performed without the administration of intravenous contrast. Findings: No IV contrast was utilized. There are no comparisons. The lung bases are clear. Heart size is within normal limits. There is a trace pericardial effusion. No significant abnormality of the liver is noted. The spleen is large, but otherwise unremarkable. No abnormality of the pancreas is appreciated. The gallbladder is abnormally enlarged, but otherwise unremarkable. The bile ducts are not dilated. No abnormality of the adrenal glands is noted. Both kidneys appear mildly edematous in appearance. There is a nonspecific exophytic 1.8 cm hypodense left upper pole lesion. No hydronephrosis or hydroureter is noted. There is fluid in the distal esophagus. There are no abnormally dilated loops of bowel. The appendix is unremarkable. No pericolonic inflammatory change is noted. No free air or free fluid is noted. The urinary bladder is unremarkable. There is a 2.5 x 1.6 x 3.3 cm hypodensity in the left side of the prostate suspicious for a nonspecific fluid collection. No pathologic adenopathy is noted. The abdominal aorta is not aneurysmal. No significant bony abnormality is appreciated. IMPRESSION: 1. Both kidneys appear edematous and possibly inflamed in appearance. 2. Nonspecific exophytic 1.8 cm left renal hypodensity. 3. The gallbladder is abnormally enlarged, but otherwise unremarkable. 4. Fluid in the distal esophagus. 5. Splenomegaly. 6. Trace pericardial effusion. Narrative Procedure Note Isabelle Chavira MD - 02/27/2025 IMPRESSION: Please see below. Exam: CT ABDOMEN PELVIS WO CONTRAST Date/Time of Exam: 02/27/2025 6:49 PM Reason For Exam: hx of prostate abscess, UTI, Micro abscess in kidney, RENNY. Diagnosis: Acute renal failure superimposed on stage 4 chronic kidney disease, unspecified acute renal failure type (CMS/HCC); Acute renal failure superimposed on stage 4 chronic kidney disease, unspecified acute renal failure type (CMS/HCC). Technique: CT of the abdomen and pelvis was performed without the administration of intravenous contrast. Findings: No IV contrast was utilized. There are no comparisons. The lung bases are clear. Heart size is within normal limits. There is a trace pericardial effusion. No significant abnormality of the liver is noted. The spleen is large, but otherwise unremarkable. No abnormality of the pancreas is appreciated. The gallbladder is abnormally enlarged, but otherwise unremarkable. The bile ducts are not dilated. No abnormality of the adrenal glands is noted. Both kidneys appear mildly edematous in appearance. There is a nonspecific exophytic 1.8 cm hypodense left upper pole lesion. No hydronephrosis or hydroureter is noted. There is fluid in the distal esophagus. There are no abnormally dilated loops of bowel. The appendix is unremarkable. No pericolonic inflammatory change is noted. No free air or free fluid is noted. The urinary bladder is unremarkable. There is a 2.5 x 1.6 x 3.3 cm hypodensity in the left side of the prostate suspicious for a nonspecific fluid collection. No pathologic adenopathy is noted. The abdominal aorta is not aneurysmal. No significant bony abnormality is appreciated. IMPRESSION: 1. Both kidneys appear edematous and possibly inflamed in appearance. 2. Nonspecific exophytic 1.8 cm left renal hypodensity. 3. The gallbladder is abnormally enlarged, but otherwise unremarkable. 4. Fluid in the distal esophagus. 5. Splenomegaly. 6. Trace pericardial effusion. Johnnie CASTREJON CT ORDERABLES Final Result * (ABNORMAL) TROPONIN 2 HR, 5TH GEN (02/27/2025 6:06 PM CDT) TROPONIN T, 2 HR 5TH GEN 54(H) <=15 ng/L 02/27/2025 7:09 PM CDT [facility] DELTA 2HR TROPONIN T -6 See Interp. 02/27/2025 7:09 PM CDT [facility] Blood Venipuncture / Unknown 02/27/2025 6:06 PM CDT 02/27/2025 6:23 PM CDT Narrative [facility] - 02/27/2025 7:09 PM CDT Troponin elevated. Delta indeterminate. Delay in collection of timed specimen beyond recommended collection interval. Results must be interpreted in clinical context. us Emy Rosashari Bautista [employer] SUPER[employer] CHEMISTRY ORDERABLES Fi nal Result Performing Organization Address [facility] Co de Phone Number [facility] # [id number] [facility] [address] * (ABNORMAL) IRON, TIBC, AND PERCENT SATURATION (02/27/2025 6:06 PM CDT) IRON 41(L) 59 - 158 ug/dL 02/27/2025 11:30 PM CDT [facility] TIBC 242(L) 250 - 450 ug/dL 02/27/2025 11:30 PM CDT [facility] IRON % SATURATION 17 15 - 60 % 02/27/2025 11:30 PM CDT [facility] Blood Venipuncture / Unknown 02/27/2025 6:06 PM CDT 02/27/2025 6:23 PM CDT us Otto Hampton DO CHEMISTRY ORDERABLES Final R esult Performing Organization Address [facility] Co de Phone Number [facility] CLIA # [id number] [address] [address] * (ABNORMAL) SODIUM LEVEL (02/27/2025 6:06 PM CDT) SODIUM 130(L) 136 - 145 mmol/L 02/27/2025 6:57 PM CDT [facility] Blood Venipuncture / Unknown 02/27/2025 6:06 PM CDT 02/27/2025 6:23 PM CDT us Waqas Torrez MD CHEMISTRY ORDERAB LES Final Result Performing Organization Address [facility] Co de Phone Number [facility] CLIA # [id number] [address] [place], [place] [address] * (ABNORMAL) FERRITIN (02/27/2025 6:06 PM CDT) FERRITIN 1,852.0(H) 30.0 - 400.0 ng/mL 02/27/2025 11:27 PM CDT [facility] Blood Venipuncture / Unknown 02/27/2025 6:06 PM CDT 02/27/2025 6:23 PM CDT us Otto Hampton DO CHEMISTRY ORDERABLES Final R esult Performing Organization Address [facility] Co de Phone Number [facility] CLIA # [id number] [address] [facility] [place], [place] [address] * (ABNORMAL) CK (02/27/2025 6:06 PM CDT) Pathologist [facility] CK 16(L) 39 - 308 U/L 02/27/2025 8:20 PM CDT [facility] Blood Venipuncture / Unknown 02/27/2025 6:06 PM CDT 02/27/2025 6:23 PM CDT us Otto Hampton DO CHEMISTRY ORDERABLES Final R esult Performing Organization Address [facility] Co de Phone Number [facility] CLIA # [id number] [address] [place], [place] [address] * EXTRA TUBE (URINE ALBRECHT) (02/27/2025 4:24 PM CDT) Urine URINE SPECIMEN OBTAINED BY CLEAN CATCH PROCEDURE / Unknown Collection / Unknown 02/27/2025 4:24 PM CDT 02/27/2025 4:42 PM CDT us Emy Bautista [employer] URINE ORDERABLES Final Result Performing Organization Address [facility] de Phone Number [facility] CLIA # [id number] [address] [address] * UREA NITROGEN/CREATININE RATIO, URINE (02/27/2025 4:24 PM CDT) UREA NITROGEN, URINE 407 mg/dL 02/27/2025 8:50 PM CDT [facility] Comment:Reference range not established CREATININE, URINE 89.2 40.0 - 278.0 mg/dL 02/27/2025 8:50 PM CDT [facility] Comment:Reference Range vari es with fluid intake and diet. UREA/CREAT RATIO, UR 4.6 mg/mg Creatinine 02/27/2025 8:50 PM CDT [facility] Urine URINE SPECIMEN OBTAINED BY CLEAN CATCH PROCEDURE / Unknown Collection / Unknown 02/27/2025 4:24 PM CDT 02/27/2025 4:42 PM CDT us Otto Hampton DO URINE ORDERABLES Final Resul t Performing Organization Address [facility] de Phone Number [facility] CLIA # [id number] [address] [address] * SODIUM, RANDOM URINE (02/27/2025 4:24 PM CDT) SODIUM, URINE 41 mmol/L 02/27/2025 8:50 PM CDT [facility] Urine URINE SPECIMEN OBTAINED BY CLEAN CATCH PROCEDURE / Unknown Collection / Unknown 02/27/2025 4:24 PM CDT 02/27/2025 4:42 PM CDT us Otto Hampton DO URINE ORDERABLES Final Resul t Performing Organization Address [facility] Co de Phone Number [facility] CLIA # [id number] [address] [address] * OSMOLALITY, URINE (02/27/2025 4:24 PM CDT) OSMOLALITY, URINE 306 50 - 1,200 mOsm/kg 02/27/2025 8:26 PM CDT [facility] Urine URINE SPECIMEN OBTAINED BY CLEAN CATCH PROCEDURE / Unknown Collection / Unknown 02/27/2025 4:24 PM CDT 02/27/2025 4:42 PM CDT Narrative [facility] - 02/27/2025 8:26 PM CDT Reference range: 50-1200 mOsm/kg H2O, depending on fluid intake. us Otto Hampton DO URINE ORDERABLES Final Resul t Performing Organization Address [facility] de Phone Number [facility] CLIA # [id number] [address] [address] * CREATININE, RANDOM URINE (02/27/2025 4:24 PM CDT) CREATININE, URINE 89.2 40.0 - 278.0 mg/dL 02/27/2025 8:32 PM CDT [facility] Comment:Reference Range vari es with fluid intake and diet. Urine URINE SPECIMEN OBTAINED BY CLEAN CATCH PROCEDURE / Unknown Collection / Unknown 02/27/2025 4:24 PM CDT 02/27/2025 4:42 PM CDT us Otto Hampton DO URINE ORDERABLES Final Resul t Performing Organization Address [facility] Co de Phone Number [facility] CLIA # [id number] [facility] [address] [place] [address] * (ABNORMAL) URINALYSIS WITH REFLEX MICROSCOPIC (02/27/2025 4:24 PM CDT) COLOR UA Yellow Pale to Dark Yellow 02/27/2025 5:16 PM CDT [facility] CLARITY UA Cloudy(A) Clear 02/27/2025 5:16 PM CDT [facility] SPECIFIC GRAVITY UA 1.013 1.003 - 1.035 02/27/2025 5:16 PM CDT [facility] PH UA 6.0 5.0 - 8.0 02/27/2025 5:16 PM T [facility] LEUKOCYTE ESTERASE UA 3+(A) Negative 02/27/2025 5:16 PM T [facility] NITRITE UA Negative Negative 02/27/2025 5:16 PM T [facility] PROTEIN UA 2+(A) Negative 02/27/2025 5:16 PM CDT [facility] GLUCOSE UA Negative Negative 02/27/2025 5:16 PM T [facility] KETONES UA 1+(A) Negative 02/27/2025 5:16 PM [facility] UROBILINOGEN UA <2.0 <2.0 mg/dL 5:16 PM T [facility] BILIRUBIN UA Negative Negative 02/27/2025 5:16 PM T [facility] BLOOD UA 3+(A) Negative 02/27/2025 5:16 PM CDT [facility] WBC UA >100(A) 0 - 2 /hpf 02/27/2025 5:16 PM CDT [facility] RBC UA >100(A) 0 - 2 /hpf 02/27/2025 5:16 PM CDT [facility] BACTERIA UA Negative Negative /hpf 02/27/2025 5:16 PM T [facility] EPITHELIAL CELLS, URINE 0-5 0 - 5 /hpf 02/27/2025 5:16 PM CDT [facility] Urine URINE SPECIMEN OBTAINED BY CLEAN CATCH PROCEDURE / Unknown Collection / Unknown 02/27/2025 4:24 PM CDT 02/27/2025 4:42 PM CDT Emy Bautista [employer]PER[employer] URINE ORDERABLES Final Result Performing Organization Address City/[facility]/ZIP Co de Phone Number [facility] CLIA # [id number] [address] [id number] * URINE CULTURE (02/27/2025 4:24 PM CDT) CULTURE No growth 03/01/2025 7:05 AM CDT [facility] Urine URINE SPECIMEN OBTAINED BY CLEAN CATCH PROCEDURE / Unknown Collection / Unknown 02/27/2025 4:24 PM CDT 02/27/2025 4:42 PM CDT Johnnie CASTREJON MICROBIOLOGY - GENERAL ORDER BALDOMERO Final Result Performing Organization Address [facility] Co de Phone Number [facility] CLIA # [id number] [address] [address] * (ABNORMAL) TROPONIN BASELINE, 5TH GEN (02/27/2025 3:35 PM CDT) TROPONIN T, BASELINE 5TH GEN 60(H) <=15 ng/L 02/27/2025 4:29 PM CDT [facility] Blood Venipuncture / Unknown 02/27/2025 3:35 PM CDT 02/27/2025 3:52 PM CDT Narrative [facility] - 02/27/2025 4:29 PM CDT Troponin elevated. Emy Bautista [employer] SUPER[employer] CHEMISTRY ORDERABLES nal Result [facility] # [id number] [id number] [place] [address] * XR CHEST PA OR AP 1 VW (02/27/2025 3:01 PM CDT) Anatomical Region Laterality Modality Chest Computed Radiogr aphy 02/27/2025 3:02 PM CDT Impressions 02/27/2025 4:59 PM CDT Impression: 1. The PICC shows good placement. 2. No evidence of infiltrates. Narrative 02/27/2025 4:59 PM CDT Exam: XR CHEST PA OR AP 1 VW Date/Time of Exam: 02/27/2025 3:01 PM Reason For Exam: Chest Pain Diagnosis: See Reason for Exam A right-sided PICC is in place with tip in the superior vena cava. The heart size is normal. The lungs are clear. No pneumothorax is seen. Procedure Note Justin Oneal MD - 02/27/2025 Exam: XR CHEST PA OR AP 1 VW Date/Time of Exam: 02/27/2025 3:01 PM Reason For Exam: Chest Pain Diagnosis: See Reason for Exam A right-sided PICC is in place with tip in the superior vena cava. The heart size is normal. The lungs are clear. No pneumothorax is seen. Impression: 1. The PICC shows good placement. 2. No evidence of infiltrates. us Emy Bautista NP DIAGNOSTIC IMAGING ORDE RABDAVIDE Final Result * Critical Care (02/27/2025 1:00 PM CDT) Narrative Waqas Torrez MD - 02/27/2025 1:00 PM CDT Waqas Torrez MD 03/10/2025 9:25 AM Critical Care Performed by: Waqas Torrez MD Authorized by: Waqas Torrez MD Critical care provider statement: Critical care time (minutes): 45 Critical care was necessary to treat or prevent imminent or life-threatening deterioration of the following conditions: Sepsis Critical care was time spent personally by me on the following activities: Blood draw for specimens, development of treatment plan with patient or surrogate, discussions with consultants, discussions with primary provider, examination of patient, obtaining history from patient or surrogate, review of old charts, re-evaluation of patient's condition, pulse oximetry, ordering and review of radiographic studies, ordering and review of laboratory studies and ordering and performing treatments and interventions us Waqas Torrez MD PROCEDURE/MINOR S URGICAL ORDERABLES Final Result * HEMOGLOBIN A1C (02/08/2025) ABSTRACTED HGB A1C 9.4 % Blood 02/08/2025 us Abstract Provider CHEMISTRY ORDERABLES Final Res ult from Last 3 Months Insurance RX [employer] (INTERNAL) [employer] * Guarantor: FELICITA BENOIT J (C) Account Type Relation to Patient Date of Phone Billing Address Corporate Other DEFAULT ADDRESS [address] [employer] Advance Directives For more information, please contact: [phone] * Full Code (Latest Code Status on File) Date Activated Date Inactivated Comments 02/27/2025 11:34 PM 03/05/2025 4:34 PM
--- NOTE | 2025-04-27 17:08 | ECG_ITS ---
[facility] Date: 2025-04-27 Pat Name: Robert Martinez Department: Room: Gender: Male Interactive Developer: : 1980 Requested By: Maame Garibay Order Number: [id number] Thai MD: Myles Decker M.D. Measurements Intervals [place] Rate: 134 P: 52 MA: 143 QRS: 87 QRSD: 105 T: 60 QT: 309 QTc: 462 Interpretive Statements SINUS TACHYCARDIA INCOMPLETE RIGHT BUNDLE BRANCH BLOCK [90+ ms QRS DURATION, TERMINAL R IN V1/V2, 40+ ms S IN I/aVL/V4/V5/V6] MODERATE ST DEPRESSION [0.05+ mV ST DEPRESSION] Compared to ECG 02/19/2025 10:06:45 ST (T wave) deviation now present Sinus rhythm no longer present Electronically Signed On 04-27-2025 18:30:57 CDT by Myles Decker M.D. [email or web address]
--- NOTE | 2025-04-27 17:37 | XRR_ITS ---
PROCEDURE INFORMATION: Exam: XR Chest Exam date and time: 04/27/2025 5:43 PM Age: 44 years old Clinical indication: Fever; Prior surgery; Surgery date: 1-6 months; Surgery type: Picc; Additional info: Fatigue TECHNIQUE: Imaging protocol: Radiologic exam of the chest. Views: 1 view. COMPARISON: CR XR chest 1V portable [id number] 03/07/2025 10:37 AM FINDINGS: Lungs: No pulmonary edema. No consolidation. Pleural spaces: Unremarkable. No pleural effusion. No pneumothorax. Heart/Mediastinum: Unremarkable. No cardiomegaly. Bones/joints: Unremarkable. XR/XR chest 1V portable [id number] IMPRESSION: No acute findings.
[2025-04-27 17:57] LABS: Hematocrit 26.7 % (37-53); Hemoglobin 9.10 g/dL (11.27-16.99); Mean Corpuscular HGB Conc 34.1 g/dL (30-55); Mean Corpuscular Hemoglobin 26.5 pg (27-33); Mean Corpuscular Volume 77.8 fl (82-101); Nucleated Red Blood Cells % 0 %; Platelet Count 285 10^3/cmm (157-399); Red Blood Count 3.43 10^6/uL (3.85-5.65); White Blood Count 14.05 10^3/uL (3.29-11.43)
[2025-04-27 18:15] LABS: Glucose Urine UA 2+ (Normal); Nitrate Urine Negative (Negative); Specific Gravity, Urine 1.011 (1.005-1.030)
[2025-04-27 18:20] LABS: Add Urine Microscopic? YES
[2025-04-27 18:22] LABS: Lactic Sepsis W/Reflex 1.0 mmol/L (0.5-2.2)
[2025-04-27 18:24] LABS: Troponin(5th) Baseline 74 ng/L (0-15)
[2025-04-27 18:28] LABS: Alanine Aminotransferase 14 U/L (0-41); Albumin Level 3.5 g/dL (3.5-5.2); Alkaline Phosphatase 88 U/L (40-130); Anion Gap 26.0 (5-19); Aspartate Amino Transferase 10 U/L (0-40); Blood Urea Nitrogen 79 mg/dL (6-20); Calcium 8.8 mg/dL (8.5-10.5); Carbon Dioxide 12 mmol/L (22-29); Chloride 92 mmol/L (98-107); Creatinine Clr Calc Pharmacy 17.7598; Globulin 3.7 g/dL (1.3-4.6); Glucose 161 mg/dL (65-115); Osmolality Calculated 289 mOsm/kg (285-295); Potassium 4.0 mmol/L (3.5-5.1); Sodium 126 mmol/L (136-145); Total Protein 7.2 g/dL (6.6-8.7)
[2025-04-27 18:40] LABS: ABG PCO2 22.2 mmHg (35-45); ABG PH Result 7.37 (7.35-7.45); Alveolar-Arterial Oxygen Gradi 4.7 mmHg (5-10); Arterial Blood Gas Hematocrit 31.2 % (42-52); Blood Gas Allen Test Pos; Blood Gas Operator Identificat glc; Blood Gas Sample Site Radial, left; Blood Gas Sample Type Arterial; Carboxyhemoglobin 1.1 %THgb (0.4-20.1); Glucose Level-ABG 169.0 mg/dL (70-115); HCO3 ABG 12.8 mmol/L (22-26); Ionized Calcium Level - ABG 1.2 mmol/L (1.1-1.4); Methemoglobin 0.4 % (0.4-1.5); Oxygen Saturation ABG 97.1; PO2 ABG 84.1 mmHg (80.0-100.0); PO2 FiO2 Ratio Arterial Blood 400; Potassium Level - ABG 3.7 mmol/L (3.5-5.0); Sodium Level - ABG 128.0 mmol/L (131-143)
[2025-04-27 19:09] LABS: UA Slide Review UA Slide Review Perf
--- NOTE | 2025-04-27 19:28 | CTR_ITS ---
PROCEDURE INFORMATION: Exam: CT Abdomen And Pelvis Without Contrast Exam date and time: 04/27/2025 7:36 PM Age: 44 years old Clinical indication: Abnormal findings; Abnormal lab test; Abnormal kidney function lab tests and elevated wbc; Fever and nausea and vomiting; Weakness with n/v and fever. Elevated wbc. ; Additional info: Generalized fatigue, unknown source of infection TECHNIQUE: Imaging protocol: Computed tomography of the abdomen and pelvis without contrast. Radiation optimization: All CT scans at this facility use at least one of these dose optimization techniques: automated exposure control; mA and/or kV adjustment per patient size (includes targeted exams where dose is matched to clinical indication); or iterative reconstruction. COMPARISON: CT kidney stone [id number] 02/19/2025 8:58 AM RADIATION DOSE METRICS: Total DLP (mGy-cm): 641.56 FINDINGS: Liver: Enlarged liver measures 21.5 cm in craniocaudal dimension. Gallbladder and biliary ducts: Distended gallbladder similar to comparison. No calcified gallstones, wall thickening, or pericholecystic inflammatory change. No biliary ductal dilatation. Pancreas: Normal. No ductal dilation. Spleen: Splenomegaly measures 16.8 cm in maximal dimension. Adrenal glands: Normal. No mass. Kidneys and ureters: Benign-appearing left upper renal cyst requires no dedicated imaging follow-up. Asymmetric mvsoo-wgtykjp-mbdq-left perirenal fat stranding. Otherwise unremarkable. Stomach and bowel: Unremarkable. No bowel dilatation to suggest obstruction. Appendix: No evidence of appendicitis. Intraperitoneal space: No free air. No significant fluid collection. Vasculature: Moderate systemic atherosclerotic calcification without abdominal aortic aneurysm. Lymph nodes: Mildly prominent retroperitoneal lymph nodes are likely reactive. Urinary bladder: Unremarkable as visualized. Reproductive: Evidence of prior TURP. Decreased size left prostate hypodensity with thin residual area measuring 1.5 x 0.3 cm on axial image 92 of series 3. Bones/joints: No acute fracture. Degenerative changes along the spine and pubic symphysis. Stable limbus type vertebral body at the anterosuperior L5 vertebral body. Soft tissues: Small fat containing left inguinal hernia. 1.2 cm superficial right inguinal fluid density structure with broad dermal interface characteristic of epidermal inclusion cyst. CT/CT abdomen pelvis wo con [id number] IMPRESSION: 1. Asymmetric zpyqm-oprmanc-iwua-left perirenal fat stranding is suggestive of pyelonephritis. 2. Decreased left prostate hypodensity with thin residual measuring 1.5 x 0.3 cm. 3. Hepatosplenomegaly. 4. Distended gallbladder similar to comparison. 5. Additional chronic and incidental findings as above. COMMENTS: Consistent with the [employer]'s Incidental Findings Committee white paper (J Am Chuy Radiol 2018): Any incidental renal lesion less than 1 cm or classified as too small to characterize, or any incidental cystic renal lesion characterized as simple-appearing, is likely benign. No follow-up imaging is recommended for these lesions per consensus recommendations based on imaging criteria.
--- NOTE | 2025-04-27 19:39 | ECG_ITS ---
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 Measurements Intervals [place] Rate: 108 P: 49 GA: 177 QRS: 6 QRSD: 108 T: 75 QT: 348 QTc: 467 Interpretive Statements SINUS TACHYCARDIA INCOMPLETE RIGHT BUNDLE BRANCH BLOCK [90+ ms QRS DURATION, TERMINAL R IN V1/V2, 40+ ms S IN I/aVL/V4/V5/V6] NONSPECIFIC T-WAVE ABNORMALITY ABNORMAL RHYTHM ECG Compared to ECG 04/27/2025 17:08:38 T-wave abnormality now present ST (T wave) deviation no longer present Electronically Signed On 04-28-2025 17:14:35 CDT by Myles Decker M.D. [id number]
[2025-04-27 19:48] LABS: Ketone (Acetest) Serum Negative (Negative)
[2025-04-27 20:07] LABS: Troponin 5 2HR 63.11 ng/L (0-15)
[2025-04-27 20:14] LABS: Troponin 5 2HR Delta -10.89 ABS# (0-10)
[2025-04-27] MEDS: pantoprazole 40 mg SDV IVP (20:40)
[2025-04-27] MEDS: cefepime 2,000 mg SDV 2000 MG IVP (20:41)
[2025-04-27 20:46] VITALS: BP 115/80; PULSE 109; RESP 18; O2SAT 100
--- NOTE | 2025-04-27 21:24 | PC.NURSE ---
posterior lung pearl CTAB at this time
--- NOTE | 2025-04-27 21:40 | ED_ITS ---
HPI - Weakness 2 General: Chief complaint: Weakness Stated complaint: fever, high BS Time Seen by Provider: 04/27/25 17:36 History of Present Illness: Robert Martinez, a patient with a history of diabetes and recurrent urinary tract infections, presents to the emergency department with fever, weakness, and symptoms suggestive of diabetic ketoacidosis (DKA). The patient's symptoms began abruptly on Monday night around 8:30 PM with the onset of fever and vomiting. Initially, it was thought to be stomach flu. Since then, he has experienced persistent weakness and high blood sugar levels despite insulin administration. The patient reports being very thirsty and weak. He has had fevers on and off since Monday. His breath has a fruity odor, reminiscent of previous DKA episodes. He has been drinking large amounts of water but subsequently vomiting. The patient also mentions a lack of appetite. The patient's mother reports that he had a bowel movement this morning, which was notably dark in color and had a strong odor. It is mentioned that the patient has been anemic since December, with two EGDs and a colonoscopy performed without identifying the source of bleeding. The patient also notes some nasal mucus, but this is described as an ongoing issue rather than a new symptom. The patient's last urinary tract infection was incompletely treated, resulting in a prostate abscess. This led to complications including acute renal failure and the development of small pockets in his kidneys, which have been under observation. Related Data Home Medications ?Medication ?Instructions ?Recorded ?Confirmed ceftriaxone 2 gram intravenous 2 g IV DAILY 02/19/25 0 04/10/25 solution ezetimibe 10 mg tablet (Zetia) 10 mg PO DAILY 02/19/25 04/10/25 glucagon 1 mg/0.2 mL subcutaneous 1 mg SUBCUT PRN PRN low blood sugar 02/19/25 04/10/25 syringe (Gvoke PFS 2-Pack) insulin aspart U-100 100 unit/mL See Rx Instructions . Route .COMPLEX 02/19/25 04/10/25 (3 mL) subcutaneous pen insulin glargine 100 unit/mL (3 22 unit SUBCUT DAILY 0 02/19/25 04/10/25 mL) subcutaneous pen (Lantus Solostar U-100 Insulin) metformin 500 mg tablet 500 mg PO BID 02/19/2504/10 metoclopramide HCl 5 mg tablet 5 mg PO TID PRN Nausea And Vomiting 02/19/25 04/10/25 pantoprazole 40 mg tablet,delayed 40 mg PO QAM 5 04/10/25 release ferrous gluconate 324 mg (38 mg 324 mg PO BID 03/31/25 04/10/25 iron) tablet ondansetron HCl 8 mg tablet 8 mg PO Q8H PRN 03/31/25 0 04/10/25 rosuvastatin 40 mg tablet 40 mg PO DAILY 03/31/2512/31 sucralfate 1 gram tablet 1 g PO BID 03/31/25 04/10/25 Previous Rx's ?Medication ?Instructions ?Recorded prochlorperazine maleate 10 mg 10 mg PO Q8H PRN nausea and 02/19/25 tablet (Compazine) vomiting #20 tabs Allergies Allergy/AdvReac Type Severity Reaction Status Date / Time No Known Allergies Allergy Verified 04/10/25 15:56 Review of Systems 2 General: Reports: 10 or more systems reviewed and unremarkable except in HPI and below PFSH ED 2 PFSH: Social History Smoking and tobacco/nicotine status: never used tobacco/nicotine Alcohol intake: never Physical Exam 2 Const: COMMON NORMALS: no acute distress, patient oriented x3, healthy appearing, alert and well nourished HENMT: COMMON NORMALS: normocephalic HEAD & SCALP: normocephalic Eye: COMMON NORMALS: EOMs intact bilaterally Neck/C-Spine: COMMON NORMALS: full ROM and supple Resp: COMMON NORMALS: normal respiratory effort, No retractions and clear to auscultation bilaterally AUSCULTATION: clear to auscultation bilaterally Cardio: COMMON NORMALS: regular rhythm, No gallops present (Cardio) and No murmurs present (Cardio); negative for regular rate (Tachycardia) RATE: abnormal rate (Tachycardia) RHYTHM: regular rhythm GI: COMMON NORMALS: Soft to palpation and non-tender PALPATION: Yes Soft to palpation Extremity: GENERAL: Yes normal exam except as noted Neuro: COMMON NORMALS: patient oriented x3 SENSORIUM/ORIENTATION: Yes alert Skin: COMMON NORMALS: no rashes or lesions noted GENERAL SKIN EXAM: no rashes or lesions noted Course 2 Vital Signs: Vital signs: Vital Signs Temperature 97.5 F L 04/27/25 16:58 Pulse Rate 109 H 04/27/25 20:46 Respiratory Rate 18 04/27/25 20:46 Blood Pressure 115/80 04/27/25 20:46 Pulse Oximetry 100 04/27/25 20:46 Oxygen Delivery Me thod Room Air 04/27/25 16:58 MDM - Weakness Medical Decision Making 44-year-old male presents emergency department for evaluation of fevers, weakness, nausea and vomiting, and increased thirst. Initially the patient and his spouse were concerned for DKA. His initial set of vital signs showed low temperature and tachycardia without hypotension. On physical exam only tachycardia was significant. His laboratory evaluation demonstrated leukocytosis, anemia, hyponatremia, and acute kidney failure with uremia. Patient's ABG is metabolic acidosis with respiratory alkalosis. Baseline troponin was elevated, 2-hour delta was negative. Patient's most likely diagnosis is sepsis secondary to pyelonephritis with acute kidney failure with uremia. Patient was given 30 mg/kg of fluid and started on Vanco and cefepime. Additionally, blood cultures were drawn prior to starting antibiotics. Patient will likely need CRRT and therefore will need to be transferred to [facility] based on their preference. Case discussed with Dr. Hinojosa who agreed to admit the patient to the ICU at [facility]. Patient transferred to [facility]. Lab Data 04/27/25 17:50 04/27/25 17:50 Radiology Impressions Chest X-Ray 04/27/25 17:37 IMPRESSION: No acute findings. Abdomen/Pelvis CT 04/27/25 19:28 IMPRESSION: 1. Asymmetric udyky-feaavgh-kggi-left perirenal fat stranding is suggestive of pyelonephritis. 2. Decreased left prostate hypodensity with thin residual measuring 1.5 x 0.3 cm. 3. Hepatosplenomegaly. 4. Distended gallbladder similar to comparison. 5. Additional chronic and incidental findings as above. COMMENTS: Consistent with the [employer]'s Incidental Findings Committee white paper (J Am Chuy Radiol 2018): Any incidental renal lesion less than 1 cm or classified as too small to characterize, or any incidental cystic renal lesion characterized as simple-appearing, is likely benign. No follow-up imaging is recommended for these lesions per consensus recommendations based on imaging criteria. Laboratory Results WBC 14.05 10^3/uL (3.29-11.43) H 04/27/25 17:50 RBC 3.43 10^6/uL (3.85-5.65) L 04/27/25 17:50 Hgb 9.10 g/dL (11.27-16.99) L 04/27/25 17:50 Hct 26.7 % (37-53) L 04/27/25 17:50 MCV 77.8 fl (82-101) L 04/27/25 17:50 MCH 26.5 pg (27-33) L 04/27/25 17:50 MCHC 34.1 g/dL (30-55) 04/27/25 17:50 RDW 13.5 % (12.1-15.1) 04/27/25 17:50 Plt Count 285 10^3/cmm (157-399) 04/27/25 17:50 MPV 9.4 fL (7.4-10.4) 04/27/25 17:50 Neut % (Auto) 87.3 % 04/27/25 17:50 Lymph % (Auto) 6.4 % 04/27/25 17:50 Carbon % (Auto) 5.6 % 04/27/25 17:50 Eos % (Auto) 0.0 % 04/27/25 17:50 Baso % (Auto) 0.1 % 04/27/25 17:50 Neut # (Auto) 12.28 10^3/uL (1.8-7.7) H 04/27/25 17:50 Lymph # (Auto) 0.9 10^3/uL (0.8-4.8) 04/27/25 17:50 Carbon # (Auto) 0.8 10^3/uL (0.2-0.9) 04/27/25 17:50 Eos # (Auto) 0.0 10^3/uL (0.0-0.8) 04/27/25 17:50 Baso # (Auto) 0.0 10^3/uL (0.0-0.1) 04/27/25 17:50 Nucleated RBC % (auto) 0 % 04/27/25 17:50 Nucleated RBCs # 0.0 /100WBC 04/27/25 17:50 Specimen Type Arterial 04/27/25 18:28 Sample Site Radial, left 04/27/25 18: ABG pH 7.37 (7.35-7.45) 04/27/25 18: ABG pCO2 22.2 mmHg (35-45) L 04/27/25 18: ABG pO2 84.1 mmHg (80.0-100.0) 04/27/25 18: ABG PO2/FiO2 Ratio 400 04/27/25 18: ABG HCO3 12.8 mmol/L (22-26) L 04/27/25 18: ABG O2 Saturation 97.1 04/27/25 18: ABG Base Excess -10.9 mmol/L (-2.0-2.0) L 04/27/25 18: Ian Test Pos 04/27/25: A-a O2 Gradient 4.7 mmHg (5-10) L 04/27/25 18: Hematocrit 31.2 % (42-52) L 04/27/25: Hgb O2 Saturation 95.7 % (95-100) 04/27/25 18: Carboxyhemoglobin 1.1 %THgb (0.4-20.1) 04/27/25 18: Methemoglobin 0.4 % (0.4-1.5) 04/27/25 18: Total Hemoglobin 10.2 g/dL (14-18) L 04/27/25 18: Sodium 128.0 mmol/L (131-143) L 04/27/25 18: Potassium 3.7 mmol/L (3.5-5.0) 04/27/25 18: Glucose 169.0 mg/dL (70-115) H 04/27/25 18: Ionized Calcium 1.2 mmol/L (1.1-1.4) 04/27/25 18: O2 Delivery Device Room air 04/27/25 18: FiO2 21.0 % 04/27/25 18: Supervisor Agency Appointments ID [email or web address] 04/27/25 18: Sodium 126 mmol/L (136-145) L 04/27/25 17:50 Potassium 4.0 mmol/L (3.5-5.1) 04/27/25 17:50 Chloride 92 mmol/L (98-107) L 04/27/25 17:50 Carbon Dioxide 12 mmol/L (22-29) L 04/27/25 17:50 Anion Gap 26.0 (5-19) H 04/27/25 17:50 BUN 79 mg/dL (6-20) H 04/27/25 17:50 Creatinine 5.8 mg/dL (0.7-1.2) H* 04/27/25 17:50 GFR Calculation 10.7 mL/min (90-130) L 04/27/25 17:50 Glucose 161 mg/dL (65-115) H 04/27/25 17:50 POC Glucose 185 mg/dL (70-110) H 04/27/25 17:04 Calculated Osmolality 289 mOsm/kg (285-295) 04/27/25 17:50 Lactic Acid 1.0 mmol/L (0.5-2.2) 04/27/25 17:50 Calcium 8.8 mg/dL (8.5-10.5) 04/27/25 17:50 Total Bilirubin 0.3 mg/dL (0.15-1.2) 04/27/25 17:50 AST 10 U/L (0-40) 04/27/25 17:50 ALT 14 U/L (0-41) 04/27/25 17:50 Alkaline Phosphatase 88 U/L (40-130) 04/27/25 17:50 Troponin T Baseline 74 ng/L (0-15) H 04/27/25 17:50 Troponin T 120 Minute 63.11 ng/L (0-15) H 04/27/25 19:30 Delta Troponin T -10.89 ABS# (0-10) L 04/27/25 19:30 Total Protein 7.2 g/dL (6.6-8.7) 04/27/25 17:50 Albumin 3.5 g/dL (3.5-5.2) 04/27/25 17:50 Globulin 3.7 g/dL (1.3-4.6) 04/27/25 17:50 Urine Color Yellow (Yellow) 04/27/25 17:58 Urine Appearance Turbid (CLEAR) A 04/27/25 17:58 Urine pH 5.5 (5-7) 04/27/25 17:58 Ur Specific [place] 1.011 (1.005-1.030) 04/27/25 17:58 Urine Protein 2+ (Negative) A 04/27/25 17:58 Urine Glucose (UA) 2+ (Normal) H 04/27/25 17:58 Urine Ketones Negative (Negative) 04/27/25 17:58 Urine Blood 2+ (Negative) A 04/27/25 17:58 Urine Nitrate Negative (Negative) 04/27/25 17:58 Urine Bilirubin Negative (Negative) 04/27/25 17:58 Urine Urobilinogen 0.2 mg/dL (Negative) 04/27/25 17:58 Ur Leukocyte Esterase 3+ (Negative) A 04/27/25 17:58 Urine RBC 0-2 /hpf (0-2) 04/27/25 17:58 Urine WBC >100 /hpf (0-5) H 04/27/25 17:58 Ur Squamous Epith Cells 0-5 /hpf (0-5) 04/27/25 17:58 Amorphous Sediment Not Reportable 04/27/25 17:58 Urine Bacteria 4+ /hpf (NONE) H 04/27/25 17:58 Hyaline Casts 3.30 /lpf 04/27/25 17:58 Serum Ketones Negative (Negative) 04/27/25 17:50 All radiology interpretation(s) finalized by discharge EKG Data EKG 1: Interpretation: Sinus tachycardia with a rate of 134, GA 143, QRS 105, QTc 388, ST segment depression in V3, V4, V6, no ST segment elevation, incomplete right bundle branch block EKG 2: Interpretation: Sinus tachycardia with a rate of 108, GA 177, QRS 108, QTc 144, no ST segment elevation or depression, incomplete right bundle branch block Discharge Plan Discharge Patient Disposition: Xfer Short-Term Hosp Clinical Impression: Sepsis Qualifiers: Sepsis type: sepsis due to unspecified organism Sepsis acute organ dysfunction status: with acute organ dysfunction Severe sepsis acute organ dysfunction type: acute renal failure Acute renal failure type: unspecified Severe sepsis shock status: without septic shock Qualified Code(s): A41.9 - Sepsis, unspecified organism Condition: Stable Referrals: Sil House MD [Primary Care Provider, [facility]] Print Language: [place] Coding Level of Care Code ED Conversion Worker for [facility] Rachel
--- NOTE | 2025-04-27 22:28 | PC.NURSE ---
report called to ADDY ANDREWS at [place] [facility] in [facility].
[2025-04-27 23:15] VITALS: BP 165/110; PULSE 112; RESP 18; O2SAT 97
== END 2025-04-27 23:15 | disposition short-term general hospital (02) ==
PROVIDERS: Emergency Provider General Practice; PCP Family Medicine
DX: A41.9 Sepsis, unspecified organism (principal); R65.20 Severe sepsis without septic shock; N17.9 Acute kidney failure, unspecified
CPT/HCPCS: 36415; 36416; 36600; 71045; 74176; 80051; 80053; 81001; 82009; 82330; 82805; 82962; 83605; 84484; 85025; 87040; 87077; 87086; 87186; 93005; 96365; 96366; 96375; 99285; J0692; J2470; J3372; J7030; J7120

== ENCOUNTER 2025-05-22 12:19 | Oncology outpatient (recurring) (ONCR) | payer OTHER, SELFPAY ==
[2025-05-22 12:49] LABS: Hematocrit 28.2 % (37-53); Hemoglobin 9.10 g/dL (11.27-16.99); Mean Corpuscular HGB Conc 32.3 g/dL (30-55); Mean Corpuscular Hemoglobin 26.6 pg (27-33); Mean Corpuscular Volume 82.5 fl (82-101); Nucleated Red Blood Cells % 0 %; Platelet Count 215 10^3/cmm (157-399); Red Blood Count 3.42 10^6/uL (3.85-5.65); White Blood Count 4.74 10^3/uL (3.29-11.43)
[2025-05-22 13:08] LABS: Alanine Aminotransferase 11 U/L (0-41); Albumin Level 4.0 g/dL (3.5-5.2); Alkaline Phosphatase 87 U/L (40-130); Anion Gap 20.9 (5-19); Aspartate Amino Transferase 12 U/L (0-40); Blood Urea Nitrogen 59 mg/dL (6-20); Calcium 9.3 mg/dL (8.5-10.5); Carbon Dioxide 17 mmol/L (22-29); Chloride 105 mmol/L (98-107); Creatinine Clr Calc Pharmacy 25.4218; Globulin 4.2 g/dL (1.3-4.6); Glucose 82 mg/dL (65-115); Osmolality Calculated 302 mOsm/kg (285-295); Potassium 4.9 mmol/L (3.5-5.1); Sodium 138 mmol/L (136-145); Total Protein 8.2 g/dL (6.6-8.7)
[2025-05-23 09:33] LABS: PROTEIN, TOTAL 7.7 g/dL (6.1-8.1)
[2025-05-26 11:33] LABS: KAPPA LIGHT CHAIN, FREE, SERUM 85.2 mg/L (3.3-19.4); KAPPA/LAMBDA LIGHT CHAINS FREE 3.20 (0.26-1.65); LAMBDA LIGHT CHAIN, FREE, SERU 26.6 mg/L (5.7-26.3)
[2025-05-27 20:39] LABS: ALPHA 1 GLOBULIN 0.4 g/dL (0.2-0.3); ALPHA 2 GLOBULIN 0.8 g/dL (0.5-0.9); BETA 1 GLOBULIN 0.5 g/dL (0.4-0.6); BETA 2 GLOBULIN 0.4 g/dL (0.2-0.5)
== END 2025-06-08 23:59 | disposition home or self-care (01) ==
PROVIDERS: Nurse Practitioner Family; PCP Family Medicine; Visit Provider Internal Medicine
DX: D64.9 Anemia, unspecified (principal); R03.0 Elevated blood-pressure reading, without diagnosis of hypertension; F17.200 Nicotine dependence, unspecified, uncomplicated; N17.9 Acute kidney failure, unspecified; Z71.89 Other specified counseling; Z71.6 Tobacco abuse counseling
CPT/HCPCS: 36415; 80053; 82784; 83883; 84155; 84165; 85025; 86334; 99214

== ENCOUNTER 2025-06-04 03:09 | Emergency (ER) | payer OTHER, SELFPAY ==
--- OUTSIDE RECORDS SUMMARY | 2025-05-09 10:12 | XMS_ITS | Encounter Summary ---
Author Name [facility] [place] [facility] [place] Address [address] [place] [address] Care Team Providers Care Welder And Fitter Name Role Phone KRYSTAL YOUNG Primary Care [...] R REGIO NAL MEDI Nov 19, 2024 [facility] [id number] KEYSHAWN BERRY PATIENT PROCARE RX PRESCRIPT ION RX PLAN February 06, 2025 [id number] [phone] KEYSHAWN BERRY SPOUSE WEB TPA PREFERRED PROVIDER ORGANIZAT ION (PPO) BAXTE R REGIO NAL MEDI February 06, 20252018[facility] [id number] [phone] JEFFRY BERRY SPOUSE WEB TPA PREFERRED PROVIDER ORGANIZAT ION (PPO) BAXTE R REGIO NAL MEDI Nov 19, 20242018[facility] [id number] [phone] KEYSHAWN BERRY PATIENT Selected Encounter This section includes the information on record at [place] for the Encounter. Date/Time Encounter Type Encounter Description Reason Provider Source May 09, 2025 03:12 PM Outpatient Encounter ADMIN PAT ACTIVTIES (MASNONCT) KRYSTEN BARRIENTOS Sol Encounter Template Text not used by [place] Plan of Treatment: Future Appointments (+ 6 months) and Future Tests (+/- 45 days) The Plan of Treatment section includes future care activities for the patient from all [place] hospital[place]. This section includes future appointments and future orders which are active, pending or scheduled. Future Appointments This section includes appointments that were scheduled to occur 6 months from the date of the Encounter, up to a maximum of 20 appointments. The data comes from all [place] treatment facilities. Appointment Date/Time Appointment Type Appointme nt Facility Name May 13, 2025 03:00 PM AMBULATORY - MEDICINE [facility] May 13, 2025 03:01 PM AMBULATORY - MEDICINE [facility] May 26, 2025 09:00 AM AMBULATORY - MEDICINE [facility] Jun 16, 2025 11:20 AM [facility] [place] [facility] [facility] Jul 04, 2025 09:30 AM [facility] Jul 09, 2025 09:15 AM AMBULATORY - MEDICINE [facility] Lab Results: +/- 30 days of the encounter This section includes the Chemistry and Hematology Lab Results on record with [place] for the patient. Radiology Reports and Pathology Reports are provided separately, in subsequent sections. Lab Results This section contains the Chemistry/Hematology Results that were resulted 30 days before or 30 daysafter the date of the Encounter. Date/Time Source Result Type Result - Unit Interpretation Reference Range Specimen Type Comment May 13, 2025 03:42 PM [facility] COMPREHENSIVE METABOLIC PANEL PLASMA Specimen Type: PLASMA No comment entered. Ordering Provider: ALIYAH OTERO Report Released Date/Time: May 13, 2025 03:39 PM Reporting Lab: [place] [facility] [address] [place] [address] Performing Lab: [place] [facility] [address] [place] [address] CREATININE 4.57 mg/dL H 0.7-1.3 UREA NITROGEN [...] (CKD-EPI 2020) May 13, 2025 03:42 PM [facility] CBC BLOOD Specimen Type: BLOOD No comment entered. Ordering Provider: ALIYAH OTERO Report Released Date/Time: May 13, 2025 03:39 PM Reporting Lab: [place] [facility] [address] [place] [facility] [address] Performing Lab: [place] [facility] [address] [facility] [place] [facility] [address] WBC 5.3 10*3/uL 3.6-11.2 RBC 3.46 10*6/uL [...] and tobacco- related health factors from the [place] facility where the Encounter took place. Current Smoking Status This section includes the most current smoking, or tobacco-related health factor, from the [place] facility where the Encounter took place. Date/Time Current Smoking Status Comment Facil ity Jan 23, 2020 12:31 PM TOBACCO OFFERED PT MEDS (PROVIDE R) [place] [facility] Encounter Notes: All associated encounter notes This [...] area/services and care coordinators, care managers or renal case manager whom the worked with prior to the assignment of a Lead Coordinator: [facility] Case Overview/Summary: [place] 44 year old non-SC. Polypharmacy is a concern with multiple medications not being filled as prescribed. He currently receives non-VA services from GI General, Hem/Onc, Nephrology, Urology, infectious disease. 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 He sees multiple providers which could [...] needed by CCRT. Lead Coordinator may bring [place] back for CCRT review if needed. The assignment of the Lead Coordinator and education of the role in the [place]'s health care was not discussed with the . Reason: LC will outreach and obtain consent for assignment. /es/ DOUG Chavez, CLIP LOADING MACHINE ADJUSTER [facility] SW Co-Coordinator Signed: 05/09/2025 15:47 Receipt Acknowledged By: 05/23/2025 11:43 /es/ EJ BECERRIL LPN [facility] 05/19/2025 15:04 /es/ KADIE FERNANDO, RN [facility] 05/13/2025 13:53 /es/ RADHA OLMSTEAD CO-CHAMPION RN CC&ICM 05/12/2025 08:37 /es/ KASSIE ANAYA, RN [facility] RN Co-[place] 05/13/2025 21:26 /es/ NICHELLE JEFFERY MD [facility]
--- OUTSIDE RECORDS SUMMARY | 2025-05-22 09:00 | XMS_ITS ---
Author Organization [facility] Address [address] [place] [address] Care Team Providers Care Program Eligibility Specialist Name Role Phone Sil Gatica MD Primary Care Provider Jameel Jackson Unavailable [phone] REASON FOR VISIT UDS Encounters Encounter Location Date Provider Diagnosis [facility] [address] [place] [address] 05/22/2025 Jmaeel Schmitt Plan Of Treatment Next Appt Details Provider Name:Jess sandoval, 06/16/2025 11:20:00 AM, [address] [place] [address] , [address], [place], [address], Provider Name:Jameel freed, 06/24/2025 10:00:00 AM, [address], [place], [address], Progress Notes * Robert MARTINEZ RDOB:1980 (44 yo M)Acc No.[id number]:05/22/2025 Progress Note Patient: Robert King Provider: Kianna Schmitt MD :1980 A ge:44 Y S ex:Male Date:05/22/2025 Address:[address] [place] [address] [address], [facility] Pcp:Sil Gatica MD Subjective: * Chief Complaints: * U DS * Electronic signature of Montez Schmitt MD on 06/04/2025 at 03:25 AM CDT Sign off status: Pending * Provider: Kianna Schmitt MD Date: 0 05/22/2025 Generated for José Miguel burgess/Horacio/Radha on: 0 06/04/2025 03:25 AM CDT
--- OUTSIDE RECORDS SUMMARY | 2025-05-26 05:42 | XMS_ITS ---
Author Name [facility] ([place]) Organization [facility] [place] Address [address] [place] [address] Care Team Providers Care Paper Processing Machine Helper Name Role Phone KRYSTAL YOUNG Primary Care [...] R REGIO NAL MEDI Nov 19, 2024 [facility] [id number] [phone] KEYSHAWN MARTINEZ PATIENT PROCARE RX PRESCRIPT ION RX PLAN February 06, 2025 [id number] [phone] KEYSHAWN MARTINEZ SPOUSE WEB TPA PREFERRED PROVIDER ORGANIZAT ION (PPO) BAXTE R REGIO NAL MEDI February 06, 20252018[facility] C [id number] [phone] JEFFRY MARTINEZ SPOUSE WEB TPA PREFERRED PROVIDER ORGANIZAT ION (PPO) BAXTE R REGIO NAL MEDI Nov 19, 20242018[facility] [id number] [phone] KEYSHAWN MARTINEZ PATIENT Selected Encounter This section includes the information on record at ID for the Encounter. Date/Time Encounter Type Encounter Description Reason Provider Source May 26, 2025 10:42 AM Outpatient Encounter ADMIN PAT ACTIVTIES (MASNONCT) JAVAD JALLOH Sol Encounter Template Text not used by ID Plan of Treatment: Future Appointments (+ 6 months) and Future Tests (+/- 45 days) The Plan of Treatment section includes future care activities for the patient from all ID treatmentfamission hospitalities. This section includes future appointments and future orders which are active, pending or scheduled. Future Appointments This section includes appointments that were scheduled to occur 6 months from the date of the Encounter, up to a maximum of 20 appointments. The data comes from all ID treatment facilities. Appointment Date/Time Appointment Type Appointme nt Facility Name Jun 16, 2025 11:20 AM AMBULATORY - [place]IC[facility] [place] [facility] Jul 04, 2025 09:30 AM [facility] Jul 09, 2025 09:15 AM AMBULATORY - MEDICINE [facility] Lab Results: +/- 30 days of the encounter This section includes the Chemistry and Hematology Lab Results on record with ID for the patient. Radiology Reports and Pathology Reports are provided separately, in subsequent sections. Lab Results This section contains the Chemistry/Hematology Results that were resulted 30 days before or 30 daysafter the date of the Encounter. Date/Time Source Result Type Result - Unit Interpretation Reference Range Specimen Type Comment May 13, 2025 03:42 PM [facility] COMPREHENSIVE METABOLIC PANEL PLASMA Specimen Type: PLASMA No comment entered. Ordering Provider: ALIYAH OTERO Report Released Date/Time: May 13, 2025 03:39 PM Reporting Lab: [place] [facility] [address] [facility] [facility] [place] [address] Performing Lab: [place] [facility] [address] [place] [address] CREATININE 4.57 mg/dL H 0.7-1.3 UREA NITROGEN [...] 2020) 15 May 13, 2025 03:42 PM [facility] CBC BLOOD Specimen Type: BLOOD No comment entered. Ordering Provider: ALIYAH OTERO Report Released Date/Time: May 13, 2025 03:39 PM Reporting Lab: [place] [facility] [address] [facility] [address] Performing Lab: [place] [facility] [address] [facility] [address] WBC 5.3 10*3/uL 3.6-11.2 RBC 3.46 10*6/uL [...] and tobacco- related health factors from the ID facility where the Encounter took place. Current Smoking Status This section includes the most current smoking, or tobacco-related health factor, from the ID facility where the Encounter took place. Date/Time Current Smoking Status Comment Yusuf cummins May 13, 2025 03:00 PM VA-TOBACCO USE FORMER CIGARETTES [facility] Tobacco Use History This section includes a history of the smoking, or tobacco-related health factors, that were collected on or before the date of the Encounter. The data comes from the ID facility where the Encounter took place. Date/Time Smoking Status/Tobac co Use Comment Facility May 13, 2025 03:00 PM VA-TOBACCO USE GUILLERMINA RY DAY OTHER TYPE [facility] May 13, 2025 03:00 PM VA-TOBACCO USE FOR GRACIE CIGARETTES [facility] Dec 16, 2019 10:01 AM VA-TOBACCO USE > 1 5 LESS THAN 30 YEARS [facility] Dec 16, 2019 10:01 AM VA-TOBACCO USE ADVICE [facility] Dec 16, 2019 10:01 AM VA-TOBACCO USE COU NSEL YES Referral to Smoking Cessation [facility] Dec 16, 2019 10:01 AM VA-TOBACCO USE MED NOTIFY PROVIDER Has tried using gum to stop smoking,would like to try something [facility] Dec 16, 2019 10:01 AM VA-TOBACCO USE WI 30 MIN OF WAKEUP [facility] Dec 16, 2019 10:01 AM VA-TOBACCO USER EVERY DAY [facility] Dec 18, 2018 02:46 PM CURRENT TOBACCO USER [facility] Dec 13, 2018 10:59 AM CURRENT TOBACCO USER [facility] Dec 13, 2018 10:59 AM VA-TOBACCO USE 5 T O 15 YEARS [facility] Dec 13, 2018 10:59 AM VA-TOBACCO USE ADVICE [facility] Dec 13, 2018 10:59 AM VA-TOBACCO USE INTERACTIVE MULTIMEDIA DESIGNER NO [facility] Dec 13, 2018 10:59 AM VA-TOBACCO USE MED NO [facility] Dec 13, 2018 10:59 AM VA-TOBACCO USE WI 30 MIN OF WAKEUP [facility] Dec 13, 2018 10:59 AM VA-TOBACCO USER EVERY DAY [facility] Jul 06, 2010 01:01 PM CURRENT TOBACCO USER [facility] Encounter Notes: All associated encounter notes This section contains the clinical notes associated to the Encounter. Date/Time Encounter Note(s) Provider Source May 26, 2025 10:42 AM LETTERS: LOCAL TITLE: TELE-EYE RESULTS LETTER STANDARD TITLE: LETTERS DATE OF NOTE: MAY 26, 2025@10:42 ENTRY DATE: MAY 26, 2025@10:42:19 AUTHOR: JAVAD JALLOH EXP COSIGNER: URGENCY: STATUS: COMPLETED MAY 26, 2025 SHANEL MARTINEZ [facility] [address] [place] [id number] Dear Shanel Martinez: You are receiving this [...] This report can be accessed online through [employer] ([email or web address].[email or web address]) or requested through your VA Medical Records/Release of Information office. If you have been seen by a non-VA eye care provider, please bring your records to your next VA appointment to be scanned into your medical record. If you are a tobacco user, [place] provides tobacco cessation services which can reduce [...] known history of eye disease. JAVAD JALLOH [facility]
--- OUTSIDE RECORDS SUMMARY | 2025-06-03 03:00 | XMS_ITS ---
Author Organization [facility] Address [address] [place] [address] Care Team Providers Care Mineral Industry Teacher Name Role Phone Sil Gatica MD Primary Care Provider Unavaila Jameel Gibson Unavailable [phone] REASON FOR VISIT 2m f/u w Dr Keshia milian ua and pvr Encounters Encounter Location Date Provider Diagnosis [facility] [address] [place] [address] 06/03/2025 Jameel Schmitt Plan Of Treatment Next Appt Details Provider Name:Jess sandoval, 06/16/2025 11:20:00 AM, [address] [place] [address] , [address], [place], [address], Provider Name:Jameel freed, 06/24/2025 10:00:00 AM, [address], [place], [address], Progress Notes * Robert MARTINEZ RDOB:1980 (44 yo M)Acc No.[id number]:06/03/2025 Progress Notes Patient: Kianna Robert aquino Provider: Kianna Schmitt MD :1980 A ge:44 Y S ex:Male Date:06/03/2025 Address:[address] [place] [address] [address], [place], [place]-[address] Pcp:Sil Gatica MD Subjective: * Chief Complaints: * 2 m f/u w Dr Keshia milian ua and pvr * Electronic signature of Montze Schmitt MD on 06/04/2025 at 03:25 AM CDT Sign off status: Pending * Provider: Kianna Schmitt MD Date: 0 06/03/2025 Generated for José Miguel burgess/Horacio/Evangelistasmjudit on: 0 06/04/2025 03:25 AM CDT
--- OUTSIDE RECORDS SUMMARY | 2025-06-03 07:30 | XMS_ITS ---
Author Organization [facility] Address [address] [place] [address] Care Team Providers Care Aviation Neuropsychologist Name Role Phone Sil Gatica MD Primary Care Provider UnavailJameel Rivera Unavailable [phone] Saurabh Mendez JR Unavailable [phone] REASON FOR VISIT [id number] Referral - Chronic UTI Medications Medication SIG [...] Active Encounters Encounter Location Date Provider Diagnosis [facility] Internal Medicine & Infectious Disease [address] [place] [id number] 06/03/2025 Saurabh Andrea Abscess of prostate N41.2 and [...] on this treatment Labs 02-23-25 W 7.6, Armature Balancer 4.34, CRP 3.18 03-06-25; W 4.9, Armature Balancer 4.18,, CRP 3.45, PSA .12, UM WBC U 378 03-24-25 W 5.0, Armature Balancer 3.13, CRP .66 05-20-25 UC Neg Follow [...] on this treatment Labs 02-23-25 W 7.6, Armature Balancer 4.34, CRP 3.18 03-06-25; W 4.9, Armature Balancer 4.18,, CRP 3.45, PSA .12, UM WBC U 378 03-24-25 W 5.0, Armature Balancer 3.13, CRP .66 05-20-25 UC Neg Follow up; Rosa Garber Plan Of Treatment Next Appt Details Provider Name:Jess sandoval, 06/16/2025 11:20:00 AM, [address] [place] [address] , [address], [place], [address], Provider Name:Jameel freed, 06/24/2025 10:00:00 AM, [address] [place] [address] , [address], [place], [address], History and Physical Notes * HPI (History [...] poorly controlled DM (hyperglycemia), renal failure, and BPH02-08-25 UC E. coli (R: amp, S: fortaz, cipro);02-07-25 Urine culture; E coli (R:amp, S: Fortaz, cipro)Or home on Rocephin, this should be post-op day #15. duration 4-6 weeks.he has been having intractable nausea. 03-06-25; feeling much better, daily feeling better 03-13-25; fu on abscess 03-24-25;Feeling better today 06-03-25; Progress Notes * Robert MARTINEZ RDOB:1980 (44 yo M)Acc No.[id number]:06/03/2025 Progress Notes Patient: Robert King Provider: Hamilton Mendez MD :1980 A ge:44 Y S ex:Male Date:06/03/2025 Address:[address] [place] [address] [address], [facility] [address] Pcp:Sil Gatica MD Subjective: * Chief Complaints: * [phone] [id number] Referral - Chronic UTI * HPI: N ursing Initial Assessment: HFU 03-06-2025 (inhouse consult note [...] poorly controlled DM (hyperglycemia), renal failure, and BPH02-08-25 UC E. coli (R: amp, S: fortaz, [...] splenomegaly. 4. 02-08-25; RESECTION PROSTATE TRANSURETHRAL, transurethral resection/unroofing of the prostatic abscess . 02-08-25 UC [...] on this treatment Labs 02-23-25 W 7.6, Armature Balancer 4.34, CRP 3.18 03-06-25; W 4.9, Armature Balancer 4 .18,, CRP 3.45, PSA .12, UM WBC U 378 03-24-25 W 5.0, Armature Balancer 3.13, CRP .66 05-20-25 UC Neg Follow up; Rosa Garber Billing Information: * Procedure Codes: Care Plan Details* * Electronic signature of Guillermo Mendez JR, MD on 06/04/2025 at 03:25 AM CDT Sign off status: Pending * Provider: Hamilton Mendez MD Date: 06/03/2025 Generated for José Miguel burgess/Horacio/Radha on: 06/04/2025 03:25 AM CDT
[2025-06-04] VITALS (7 sets, daily range): BP systolic 108–201; BP diastolic 74–117; PULSE 77–94; RESP 20; TEMP 36.5; O2SAT 93–100; BMI 26.5
--- OUTSIDE RECORDS SUMMARY | 2025-06-04 03:24 | XMS_ITS | Continuity of Care Document ---
Author Name [facility] Organization [facility] Care Team Providers Care Inspector Water Pollution Control Name Role Phone [facility] Unavailable Unavailable Problems Combined list of problems from Department of [facility] and [facility] facilities. It does not include entries that were removed or entered in error. Problem Status Onset Date Problem Type Date of Resolution Comments Source Anemia (SCT [id number]) Active Condition February 07, 2025 Entered By: KRYSTAL YOUNG Comment: egd colonsocpy normal 01/2025 [facility] Current heavy tobacco smoker Active Condition [place] [facility] Disorder due to type 2 diabetes mellitus (SNOMED CT 870155578) Active Condition May 05, 2025 Entered By: KRYSTAL YOUNG Comment: dka [facility] Erectile dysfunction Active Condition [facility] Exposure to potentially hazardous substance ([facility] [id number]) Active Condition Jan 08 Entered By: CINTHIA PIKE Comment: Entered automatically through [facility] Problem List documentation program [facility] Routine Medical Exam Active Condition [facility] UTI - Urinary Tract Infection ([facility] [id number]) Active Condition May 13, 2025 Entered By: KRYSTAL YOUNG Comment: utis sepsis, prostate abscess [facility] Diagnosis: ICD-10-CM Z13.5 Encounter for screening for eye and ear disorders Active Diagnosis [facility] Diagnosis: ICD-10-CM N39.0 Urinary tract infection, site not specified Active Diagnosis [facility] Diagnosis: ICD-10-CM E11.9 Type 2 diabetes mellitus without complications Active Diagnosis [facility] Diagnosis: ICD-10-CM Z77.29 Contact with and exposure to other hazardous substances Active Diagnosis [facility] Medications Combined list of outpatient medications from Department [facility] and [facility] facilities.Medications provided include 1) outpatient medications from the last 15 months, and 2) patient-reported medications. Medication Details Route Status Patient Instructions Prescription Expires Prescription Number Last Dispense Date Ordering Provider Order Date Order Qty Source EMPAGLIFLOZ IN 25MG TAB TAKE ONE-HALF TABLET BY MOUTH EVERY MORNING FOR DIABETES ORAL ACTIVE 03/18/2026 [id number] 5 MERLENE FELIPE Omid 2024 45 [facility] EMPAGLIFLOZ IN 25MG TAB TAKE ONE TABLET BY MOUTH ONCE A DAY FOR DIABETES ORAL DISCONT INUED (EDIT) 02/04/2026 [id number] 5 MARYLU HENDERSON [address] [place] [address] [facility] EZETIMIBE 10MG TAB TAKE ONE TABLET BY MOUTH ONCE A DAY FOR HIGH CHOLESTE ROL ORAL DISCONT INUED BY PROVIDE R 02/04/2026 [id number] 5 MARYLU HEDNERSON [address] [place] [address] [facility]OC FERROUS GLUCONATE 324MG TAB TAKE ONE TABLET BY MOUTH TWICE A DAY WITH MEALS FOR IRON DEFICIEN CY ANEMIA ORAL ACTIVE 01/21/2026 [id number] 5 MARYLU HENDERSON 2024 200 [facility] FERROUS SO4 325MG TAB TAKE ONE TABLET BY MOUTH TWICE A DAY WITH MEALS FOR IRON DEFICIEN CY ANEMIA ORAL DISCONT INUED BY PROVIDE R 01/07/2026 [id number] 5 MEENAKSHI CROOK LLIAM T [address] [place] [facility] INSULIN,ASP ART,HUMAN (EQV-NOVOLO G) 100 UNIT/ML,FLE XPEN,3ML INJECT 10 UNITS UNDER THE SKIN THREE TIMES A DAY BEFORE MEALS FOR DIABETES ADMINIST ER 10 MINUTES BEFORE FOOD DIRECTED . REFRIGER ATE UN-OPENE D PENS. DISCARD CARTRIDG E 28 DAYS AFTER OPENING. SUBCUT ANEOUS ACTIVE 01/21/2026 [id number] 5 MARYLU HENDERSON 2024 5 [facility] INSULIN,ASP ART,HUMAN (EQV-NOVOLO G) 100 UNIT/ML,FLE XPEN,3ML INJECT 8 UNITS UNDER THE SKIN THREE TIMES A DAY BEFORE MEALS FOR DIABETES ADMINIST ER 10 MINUTES BEFORE FOOD DIRECTED . REFRIGER ATE UN-OPENE D PENS. DISCARD CARTRIDG E 28 DAYS AFTER OPENING. SUBCUT ANEOUS DISCONT INUED (EDIT) 01/08/2026 [id number] 5 MEENAKSHI CROOK T [address] [facility] [place] [facility] INSULIN,GLA [...] AT THIS TIME. SUBCUT ANEOUS ACTIVE 01/08/2026 [id number] 5 MEENAKSHI CROOK T [address]24 [address] [facility] INSULIN,GLA RGINE,HUMAN 100 UNIT/ML INJ,SOLOSTA R,3ML INJECT 15 UNITS UNDER THE SKIN ONCE A DAY FOR DIABETES ADMINIST ER AT SAME TIME EACH DAY DIRECTED . DISCARD ANY OPEN CARTRIDG E AFTER 28 DAYS. SUBCUT ANEOUS DISCONT INUED (EDIT) 01/07/2026 [id number] 5 MEENAKSHI CROOK T [address]24 [address] [place] [facility] METFORMIN HCL 1000MG TAB TAKE ONE-HALF TABLET BY MOUTH TWICE A DAY WITH MEALS FOR DIABETES TAKE WITH FOOD. AVOID ALCOHOL. DISCONTI NUE BEFORE GETTING XRAY DYE. ORAL DISCONT INUED BY PROVIDE R 01/07/2026 [id number] 5 MEENAKSHI CROOK T [address] [facility] METFORMIN HCL 500MG 24HR TAB,SA TAKE TWO TABLETS BY MOUTH TWICE A DAY WITH MEALS FOR DIABETES TAKE WITH FOOD. AVOID ALCOHOL. DISCONTI NUE BEFORE GETTING XRAY DYE. ORAL DISCONT INUED BY PROVIDE R 01/21/2026 [id number] 5 MARYLU HENDERSON 2024 360 [facility] NICOTINE POLACRILEX 2MG MINI LOZENGE DISSOLVE 1 LOZENGE BY MOUTH EVERY 4 HOURS NEEDED FOR TOBACCO CESSATIO N .DO NOT SMOKE WHILE USING THIS MEDICATI ON. ORAL ACTIVE 02/04/2026 [id number] 5 MARYLU HENDERSON Cassandra 2024 81 [facility] PANTOPRAZOL E NA 40MG TAB,EC TAKE ONE TABLET BY MOUTH EVERY MORNING BEFORE A MEAL FOR GASTROES OPHAGEAL REFLUX DISEASE TAKE 30 MINUTES BEFORE MEAL(S) ORAL SUSPEND ED 01/07/2026 [id number] 5 ARMAANWI LLIAM T [address] [place] [facility] ROSUVASTATI N CA 10MG TAB TAKE ONE TABLET BY MOUTH EVERY EVENING FOR HIGH CHOLESTE ROL ORAL ACTIVE 03/18/2026 [id number] 5 MERLENE FELIPE 2024 90 [facility] Allergies, Adverse Reactions, Alerts Combined list of allergies from Department of Defense and Veterans Affairs facilities. It does not include entries that were removed or entered in error. Substance Category Reaction Severity Reaction type Status Date Reported Comments Source POISON ANDERSON Propensity to adverse reaction (finding) Urticaria active 0 [facility] Immunizations Combined list of available immunizations from the Department of Defense and Veterans Affairs facilities. Immunization Series Date Given Administered By Site Reaction Lot Number CVX Code Drug Hazardous Materials Waste Technician Status Comments Source TDAP 2018 115 complet [facility] INFLUENZA, UNSPECIFIED FORMULATION 2009 88 complet [facility] TDAP 6 2009 115 complet ed HISTORICA L INFORMATI ON - FROM OTHER [facility] TD (ADULT), 2 LF TETANUS TOXOID, PRESERVATIVE FREE, ADSORBED 5 1997 09 complet ed HISTORICA L INFORMATI ON - FROM OTHER [facility] DTAP 4 1987 20 complet ed HISTORICA L INFORMATI ON - FROM OTHER [facility] TRIVALENT OPV 1987 02 complet ed HISTORICA L INFORMATI ON - FROM OTHER [facility] N DTAP 3 1986 20 complet ed HISTORICA L INFORMATI ON - FROM OTHER REGISTRY, [facility] TRIVALENT OPV 3 1986 02 complet ed HISTORICA L INFORMATI ON - FROM OTHER REGISTRY, [facility] N DTAP 2 1986 20 complet ed HISTORICA L INFORMATI ON - FROM OTHER REGISTRY, [facility] TRIVALENT OPV 2 1986 02 complet ed HISTORICA L INFORMATI ON - FROM OTHER REGISTRY, [facility] DTAP 1 1986 20 complet ed HISTORICA L INFORMATI ON - FROM OTHER REGISTRY, [facility] TRIVALENT OPV 1 1986 02 complet ed HISTORICA L INFORMATI ON - FROM OTHER REGISTRY, [facility] MMR 1 1986 03 complet ed HISTORICA L INFORMATI ON - FROM OTHER REGISTRY, [facility] N Results Combined list of recent chemistry, hematology and other laboratory results from Department of Defense and Veterans Affairs, ranging from 15 months to all on record, depending upon the facility. Order Name Results Value Reference Range Date Interpretation Specimen Comments Source COMPREHENS JUAN A METABOLIC PANEL CREATININE [MASS/VOLUME ] IN SERUM OR PLASMA 4.57 mg/dL 0.7 - 1.3 05/13 H Specimen Type: PLASMA No comment entered. Ordering Provider: OTTONIEL OTERO Report Released Date/Time: May 13, 2025 03:39 PM Reporting Lab: [place] [facility] [address] [place] [address] Performing Lab: [place] [facility] [address] [place] [address] [facility] COMPREHENS JUAN A METABOLIC PANEL UREA NITROGEN [MASS/VOLUME ] IN SERUM OR PLASMA 63 mg/dL 9 - 25 05/13 H Specimen Type: PLASMA No comment entered. Ordering Provider: OTTONIEL OTERO Report Released Date/Time: May 13, 2025 03:39 PM Reporting Lab: [place] [facility] [address] [place] [address] Performing Lab: [place] [facility] [address] [place] [address] [facility] COMPREHENS JUAN A METABOLIC PANEL GLUCOSE [MASS/VOLUME ] IN SERUM OR PLASMA 110 mg/dL 72 - 99 05/13 H Specimen Type: PLASMA No comment entered. Ordering Provider: OTTONIEL OTERO Report Released Date/Time: May 13, 2025 03:39 PM Reporting Lab: [place] [facility] [address] [place] [address] Performing Lab: [place] [facility] [address] [place] [address] [facility] COMPREHENS JUAN A METABOLIC PANEL SODIUM [MOLES/VOLUM E] IN SERUM OR PLASMA 141 meq/L 136 - 145 05/13 Specimen Type: PLASMA No comment entered. Ordering Provider: OTTONIEL OTERO Report Released Date/Time: May 13, 2025 03:39 PM Reporting Lab: [place] [facility] [address] [place] [id number] Performing Lab: [place] [facility] [address] [place] [address] [facility] COMPREHENS JUAN A METABOLIC PANEL POTASSIUM [MOLES/VOLUM E] IN SERUM OR PLASMA 5.4 meq/L 3.5 - 5 05/13 H Specimen Type: PLASMA No comment entered. Ordering Provider: OTTONIEL OTERO Report Released Date/Time: May 13, 2025 03:39 PM Reporting Lab: [place] [facility] [address] [place] [id number] Performing Lab: [place] [facility] [address] [place] [address] [facility] COMPREHENS JUAN A METABOLIC PANEL CHLORIDE [MOLES/VOLUM E] IN SERUM OR PLASMA 110 meq/L 98 - 107 05/13 H Specimen Type: PLASMA No comment entered. Ordering Provider: OTTONIEL OTERO Report Released Date/Time: May 13, 2025 03:39 PM Reporting Lab: [place] [facility] [address] [place] [address] Performing Lab: [place] [facility] [address] [place] [address] [facility] COMPREHENS JUAN A METABOLIC PANEL CARBON DIOXIDE, TOTAL [MOLES/VOLUM E] IN SERUM OR PLASMA 19 meq/L 22 - 31 05/13 L Specimen Type: PLASMA No comment entered. Ordering Provider: OTTONIEL OTERO Report Released Date/Time: May 13, 2025 03:39 PM Reporting Lab: [place] [facility] [address] [place] [address] Performing Lab: [place] [facility] [address] [place] [id number] [facility] COMPREHENS JUAN A METABOLIC PANEL CALCIUM [MASS/VOLUME ] IN SERUM OR PLASMA 8.7 mg/dL 8.4 - 10.4 05/13 Specimen Type: PLASMA No comment entered. Ordering Provider: OTTONIEL OTERO Report Released Date/Time: May 13, 2025 03:39 PM Reporting Lab: [place] [facility] [address] [place] [id number] Performing Lab: [place] [facility] [address] [place] [address] [facility] COMPREHENS JUAN A METABOLIC PANEL PROTEIN [MASS/VOLUME ] IN SERUM OR PLASMA 8.0 g/dL 6 - 8.6 05/13 Specimen Type: PLASMA No comment entered. Ordering Provider: OTTONIEL OTERO Report Released Date/Time: May 13, 2025 03:39 PM Reporting Lab: [place] [facility] [address] [place] [phone] Performing Lab: [place] [facility] [address] [place] [address] [facility] COMPREHENS JUAN A METABOLIC PANEL ALBUMIN [MASS/VOLUME ] IN SERUM OR PLASMA 4.1 g/dL 3.4 - 5 05/13 Specimen Type: PLASMA No comment entered. Ordering Provider: OTTONIEL OTERO Report Released Date/Time: May 13, 2025 03:39 PM Reporting Lab: [place] [facility] [address] [place] [address] Performing Lab: [place] [facility] [address] [place] [address] [facility] COMPREHENS JUAN A METABOLIC PANEL BILIRUBIN.TO JESSIE [MASS/VOLUME ] IN SERUM OR PLASMA 0.2 mg/dL 0.2 - 1.2 05/13 Specimen Type: PLASMA No comment entered. Ordering Provider: OTTONIEL OTERO Report Released Date/Time: May 13, 2025 03:39 PM Reporting Lab: [place] [facility] [address] [place] [id number] Performing Lab: [place] [facility] [address] [place] [address] [facility] COMPREHENS JUAN A METABOLIC PANEL ALKALINE PHOSPHATASE [ENZYMATIC ACTIVITY/VOL UME] IN SERUM OR PLASMA 75 U/L 40 - 150 05/13 Specimen Type: PLASMA No comment entered. Ordering Provider: OTTONIEL OTERO Report Released Date/Time: May 13, 2025 03:39 PM Reporting Lab: [place] [facility] [address] [place] [phone] Performing Lab: [place] [facility] [address] [place] [address] [facility] COMPREHENS JUAN A METABOLIC PANEL ASPARTATE AMINOTRANSFE RASE [ENZYMATIC ACTIVITY/VOL UME] IN SERUM OR PLASMA 12 U/L 5 - 34 05/13 Specimen Type: PLASMA No comment entered. Ordering Provider: OTTONIEL OTERO Report Released Date/Time: May 13, 2025 03:39 PM Reporting Lab: [place] [facility] [address] [place] [phone] Performing Lab: [place] [facility] [address] [place] [address] [facility] COMPREHENS JUAN A METABOLIC PANEL ALANINE AMINOTRANSFE RASE [ENZYMATIC ACTIVITY/VOL UME] IN SERUM OR PLASMA 11 U/L 8 - 40 05/13 Specimen Type: PLASMA No comment entered. Ordering Provider: OTTONIEL OTERO Report Released Date/Time: May 13, 2025 03:39 PM Reporting Lab: [place] [facility] [address] [place] [address] Performing Lab: [place] [facility] [address] [place] [address] [facility] COMPREHENS JUAN A METABOLIC PANEL GLOMERULAR FILTRATION RATE/1.73 SQ M.PREDICTED [VOLUME RATE/AREA] IN SERUM, PLASMA OR BLOOD BY CREATININE-B ASED FORMULA (CKD-EPI 2020) 15 05/13 Specimen Type: PLASMA No comment entered. Ordering Provider: OTTONIEL OTERO Report Released Date/Time: May 13, 2025 03:39 PM Reporting Lab: [place] [facility] [address] [place] [phone] Performing Lab: [place] [facility] [address] [place] [address] [facility] CBC LEUKOCYTES [#/VOLUME] IN BLOOD BY AUTOMATED COUNT 5.3 10*3/u L 3.6 - 11.2 05/13 Specimen Type: BLOOD No comment entered. Ordering Provider: OTTONIEL OTERO Report Released Date/Time: May 13, 2025 03:39 PM Reporting Lab: [place] [facility] [address] [place] [address] Performing Lab: [place] [facility] [address] [place] [address] [facility] CBC ERYTHROCYTES [#/VOLUME] IN BLOOD BY AUTOMATED COUNT 3.46 10*6/u L 4.10 - 5.70 05/13 L Specimen Type: BLOOD No comment entered. Ordering Provider: OTTONIEL OTERO Report Released Date/Time: May 13, 2025 03:39 PM Reporting Lab: [place] [facility] [address] [place] [address] Performing Lab: [place] [facility] [address] [place] [address] [facility] CBC HEMOGLOBIN [MASS/VOLUME ] IN BLOOD 9.0 g/dL 13.1 - 16.8 05/13 L Specimen Type: BLOOD No comment entered. Ordering Provider: OTTONIEL OTERO Report Released Date/Time: May 13, 2025 03:39 PM Reporting Lab: [place] [facility] [address] [place] [address] Performing Lab: [place] [facility] [address] [place] [address] [facility] CBC HEMATOCRIT [VOLUME FRACTION] OF BLOOD 29.2 38.2 - 48.4 05/13 L Specimen Type: BLOOD No comment entered. Ordering Provider: OTTONIEL OTERO Report Released Date/Time: May 13, 2025 03:39 PM Reporting Lab: [place] [facility] [address] [place] [address] Performing Lab: [place] [facility] [address] [place] [address] [facility] CBC MCV [ENTITIC VOLUME] BY AUTOMATED COUNT 84.4 fL 80.0 - 100.0 05/13 Specimen Type: BLOOD No comment entered. Ordering Provider: OTTONIEL OTERO Report Released Date/Time: May 13, 2025 03:39 PM Reporting Lab: [place] [facility] [address] [place] [address] Performing Lab: [place] [facility] [address] [place] [address] [facility] CBC MCH [ENTITIC MASS] BY AUTOMATED COUNT 26.0 pg 27.0 - 34.0 05/13 L Specimen Type: BLOOD No comment entered. Ordering Provider: OTTONIEL OTERO Report Released Date/Time: May 13, 2025 03:39 PM Reporting Lab: [place] [facility] [address] [place] [address] Performing Lab: [place] [facility] [address] [place] [address] [facility] CBC MCHC [MASS/VOLUME ] BY AUTOMATED COUNT 30.8 g/dL 33.0 - 36.0 05/13 L Specimen Type: BLOOD No comment entered. Ordering Provider: OTTONIEL OTERO Report Released Date/Time: May 13, 2025 03:39 PM Reporting Lab: [place] [facility] [address] [place] [address] Performing Lab: [place] [facility] [address] [place] [address] [place] [address] [facility] CBC PLATELETS [#/VOLUME] IN BLOOD BY AUTOMATED COUNT 350 10*3/u L 150 - 400 05/13 Specimen Type: BLOOD No comment entered. Ordering Provider: OTTONIEL OTERO Report Released Date/Time: May 13, 2025 03:39 PM Reporting Lab: [place] [facility] [address] [place] [address] Performing Lab: [place] [facility] [address] [place] [address] [facility] CBC PLATELET MEAN VOLUME [ENTITIC VOLUME] IN BLOOD BY AUTOMATED COUNT 10.2 fL 7.5 - 11.2 05/13 Specimen Type: BLOOD No comment entered. Ordering Provider: OTTONIEL OTERO Report Released Date/Time: May 13, 2025 03:39 PM Reporting Lab: [place] [facility] [address] [place] [address] Performing Lab: [place] [facility] [address] [place] [address] [facility] CBC ERYTHROCYTE DISTRIBUTION WIDTH [RATIO] BY AUTOMATED COUNT 13.2 11.8 - 15.1 05/13 Specimen Type: BLOOD No comment entered. Ordering Provider: OTTONIEL OTERO Report Released Date/Time: May 13, 2025 03:39 PM Reporting Lab: [place] [facility] [address] [place] [address] Performing Lab: [place] [facility] [address] [place] [address] [facility] CBC LYMPHOCYTES/ 100 LEUKOCYTES IN BLOOD BY AUTOMATED COUNT 35.5 05/13 Specimen Type: BLOOD No comment entered. Ordering Provider: OTTONIEL OTERO Report Released Date/Time: May 13, 2025 03:39 PM Reporting Lab: [place] [facility] [address] [place] [address] Performing Lab: [place] [facility] [address] [place] [address] [facility] CBC MONOCYTES/10 0 LEUKOCYTES IN BLOOD BY AUTOMATED COUNT 7.2 05/13 Specimen Type: BLOOD No comment entered. Ordering Provider: OTTONIEL OTERO Report Released Date/Time: May 13, 2025 03:39 PM Reporting Lab: [place] [facility] [address] [place] [address] Performing Lab: [place] [facility] [address] [place] [address] [facility] CBC NEUTROPHILS/ 100 LEUKOCYTES IN BLOOD BY AUTOMATED COUNT 51.2 05/13 Specimen Type: BLOOD No comment entered. Ordering Provider: OTTONIEL OTERO Report Released Date/Time: May 13, 2025 03:39 PM Reporting Lab: [place] [facility] [address] [place] [address] Performing Lab: [place] [facility] [address] [place] [address] [place] [address] [facility] CBC EOSINOPHILS/ 100 LEUKOCYTES IN BLOOD BY AUTOMATED COUNT 4.2 05/13 Specimen Type: BLOOD No comment entered. Ordering Provider: OTTONIEL OTERO Report Released Date/Time: May 13, 2025 03:39 PM Reporting Lab: [place] [facility] [address] [place] [phone] Performing Lab: [place] [facility] [address] [place] [address] [facility] CBC BASOPHILS/10 0 LEUKOCYTES IN BLOOD BY AUTOMATED COUNT 1.3 05/13 Specimen Type: BLOOD No comment entered. Ordering Provider: OTOTNIEL OTERO Report Released Date/Time: May 13, 2025 03:39 PM Reporting Lab: [place] [facility] [address] [place] [id number] Performing Lab: [place] [facility] [address] [place] [address] [facility] CBC LYMPHOCYTES [#/VOLUME] IN BLOOD BY AUTOMATED COUNT 1.87 10*3/u L 0.77 - 4.50 05/13 Specimen Type: BLOOD No comment entered. Ordering Provider: OTTONIEL OTERO Report Released Date/Time: May 13, 2025 03:39 PM Reporting Lab: [place] [facility] [address] [place] [address] Performing Lab: [place] [facility] [address] [place] [address] [facility] CBC MONOCYTES [#/VOLUME] IN BLOOD BY AUTOMATED COUNT 0.38 10*3/u L 0.19 - 0.8 05/13 Specimen Type: BLOOD No comment entered. Ordering Provider: OTTONIEL OTERO G Report Released Date/Time: May 13, 2025 03:39 PM Reporting Lab: [place] [facility] [address] [place] [id number] Performing Lab: [place] [facility] [address] [place] [id number] [facility] CBC NEUTROPHILS [#/VOLUME] IN BLOOD BY AUTOMATED COUNT 2.70 10*3/u L 2.10 - 8.00 05/13 Specimen Type: BLOOD No comment entered. Ordering Provider: OTTONIEL OTERO G Report Released Date/Time: May 13, 2025 03:39 PM Reporting Lab: [place] [facility] [address] [place] [id number] Performing Lab: [place] [facility] [address] [place] [address] [facility] CBC EOSINOPHILS [#/VOLUME] IN BLOOD BY AUTOMATED COUNT 0.22 10*3/u L 0.00 - 0.60 05/13 Specimen Type: BLOOD No comment entered. Ordering Provider: OTTONIEL OTERO G Report Released Date/Time: May 13, 2025 03:39 PM Reporting Lab: [place] [facility] [address] [place] [id number] Performing Lab: [place] [facility] [address] [place] [id number] [facility] CBC BASOPHILS [#/VOLUME] IN BLOOD BY AUTOMATED COUNT 0.07 10*3/u L 0.00 - 0.20 05/13 Specimen Type: BLOOD No comment entered. Ordering Provider: OTTONIEL OTERO G Report Released Date/Time: May 13, 2025 03:39 PM Reporting Lab: [place] [facility] [address] [place] [address] Performing Lab: [place] [facility] [address] [place] [id number] [facility] CBC IMMATURE GRANULOCYTES /100 LEUKOCYTES IN BLOOD BY AUTOMATED COUNT 0.6 05/13 Specimen Type: BLOOD No comment entered. Ordering Provider: OTTONIEL OTERO Report Released Date/Time: May 13, 2025 03:39 PM Reporting Lab: [place] [facility] [address] [place] [phone] Performing Lab: [place] [facility] [address] [place] [address] [facility] CBC IMMATURE GRANULOCYTES [#/VOLUME] IN BLOOD BY AUTOMATED COUNT 0.03 10*3/u L 0.00 - 0.05 05/13 Specimen Type: BLOOD No comment entered. Ordering Provider: OTTONIEL OTERO Report Released Date/Time: May 13, 2025 03:39 PM Reporting Lab: [place] [facility] [address] [place] [phone] Performing Lab: [place] [facility] [address] [place] [address] [facility] CYSTATIN C EGFR PANELS (STL-PB-MA ) CYSTATIN C [MASS/VOLUME ] IN SERUM [...] Feb 03, 2025 12:03 PM Reporting Lab: [facility] [address] [facility] [address] Performing Lab: [facility] [address] [facility] [address] [facility] CYSTATIN C EGFR PANELS (STL-PB-MA ) CKD-EPI CYSTATIN C (2011) 17.0 60 03/11 Specimen Type: PLASMA Comment: Choice of which of the reported eGFR values to use depends on the clinical situation. For example, for patients with severe muscle wasting or reduced muscle mass, eGFR calculated using the 2012 cystatin equation may be preferred. Ordering Provider: VASU HENDERSON Report Released Date/Time: Feb 03, 2025 12:03 PM Reporting Lab: [facility] [address] [facility] [address] Performing Lab: [place] [address] [place] [address] [facility] CYSTATIN C EGFR PANELS (STL-PB-MA ) [...] Feb 03, 2025 12:03 PM Reporting Lab: [place] [address] [place] [address] Performing Lab: [place] [address] [facility] CYSTATIN C EGFR PANELS (STL-PB-MA ) CREATININE [MASS/VOLUME ] IN SERUM OR [...] Feb 03, 2025 12:03 PM Reporting Lab: [place] [address] Performing Lab: [address] [facility] CHOLESTERO L PANEL (PB) CHOLESTEROL [MASS/VOLUME ] IN SERUM OR PLASMA 134 mg/dL 0 - 200 03/11 Specimen Type: PLASMA No comment entered. Ordering Provider: BEATRIZ,JA MES W Report Released Date/Time: Feb 03, 2025 12:03 PM Reporting Lab: [place] [facility] [address] [place] [address] Performing Lab: [place] [facility] [address] [place] [address] [facility] CHOLESTERO L PANEL (PB) TRIGLYCERIDE [MASS/VOLUME ] IN SERUM OR PLASMA 106 mg/dL 0 - 150 03/11 Specimen Type: PLASMA No comment entered. Ordering Provider: VASU HENDERSON W Report Released Date/Time: Feb 03, 2025 12:03 PM Reporting Lab: [place] [facility] [address] [place] [address] Performing Lab: [place] [facility] [address] [place] [address] [facility] CHOLESTERO L PANEL (PB) CHOLESTEROL IN LDL [MASS/VOLUME ] IN SERUM OR PLASMA BY CALCULATION 75.2 mg/dL 03/11 Specimen Type: PLASMA No comment entered. Ordering Provider: VASU HENDERSON W Report Released Date/Time: Feb 03, 2025 12:03 PM Reporting Lab: [place] [facility] [address] [place] [address] Performing Lab: [place] [facility] [address] [place] [address] [facility] CHOLESTERO L PANEL (PB) CHOLESTEROL IN HDL [MASS/VOLUME ] IN SERUM OR PLASMA 37.6 mg/dL 40 03/11 L Specimen Type: PLASMA No comment entered. Ordering Provider: VASU HENDERSON W Report Released Date/Time: Feb 03, 2025 12:03 PM Reporting Lab: [place] [facility] [address] [place] [address] Performing Lab: [place] [facility] [address] [place] [address] [facility] CHOLESTERO L PANEL (PB) CHOLESTEROL IN HDL/CHOLESTE ROL.TOTAL [MASS RATIO] IN SERUM OR PLASMA 28.1 25 03/11 Specimen Type: PLASMA No comment entered. Ordering Provider: VASU HENDERSON W Report Released Date/Time: Feb 03, 2025 12:03 PM Reporting Lab: [place] [facility] [address] [place] [address] Performing Lab: [place] [facility] [address] [place] [address] [facility] IRON IRON [MASS/VOLUME ] IN SERUM OR PLASMA 42 ug/dL 65 - 175 03/11 L Specimen Type: PLASMA No comment entered. Ordering Provider: VASU HENDERSON W Report Released Date/Time: Feb 03, 2025 12:03 PM Reporting Lab: [place] [facility] [address] [place] [address] Performing Lab: [place] [facility] [address] [place] [address] [facility] MAGNESIUM MAGNESIUM [MASS/VOLUME ] IN SERUM OR PLASMA 2.38 mg/dL 1.6 - 2.6 03/11 Specimen Type: PLASMA No comment entered. Ordering Provider: VASU HENDERSON W Report Released Date/Time: Feb 03, 2025 12:03 PM Reporting Lab: [place] [facility] [address] [place] [address] Performing Lab: [place] [facility] [address] [place] [address] [facility] DIRECT LDL (MA-PB) CHOLESTEROL IN LDL [MASS/VOLUME ] IN SERUM OR PLASMA BY DIRECT ASSAY 87.1 mg/dL 0 - 99.9 03/11 Specimen Type: PLASMA No comment entered. Ordering Provider: VASU HENDERSON W Report Released Date/Time: Feb 03, 2025 12:03 PM Reporting Lab: [place] [facility] [address] [place] [address] Performing Lab: [place] [facility] [address] [place] [address] [facility] CBC LEUKOCYTES [#/VOLUME] IN BLOOD BY AUTOMATED COUNT 6.3 10*3/u L 3.6 - 11.2 03/11 Specimen Type: BLOOD No comment entered. Ordering Provider: VASU HENDERSON W Report Released Date/Time: Feb 03, 2025 12:03 PM Reporting Lab: [place] [facility] [address] [place] [address] Performing Lab: [place] [facility] [address] [place] [address] [facility] CBC ERYTHROCYTES [#/VOLUME] IN BLOOD BY AUTOMATED COUNT 3.41 10*6/u L 4.10 - 5.70 03/11 L Specimen Type: BLOOD No comment entered. Ordering Provider: VASU HENDERSON W Report Released Date/Time: Feb 03, 2025 12:03 PM Reporting Lab: [place] [facility] [address] [place] [address] Performing Lab: [place] [facility] [address] [place] [address] [facility] CBC HEMOGLOBIN [MASS/VOLUME ] IN BLOOD 8.7 g/dL 13.1 - 16.8 03/11 L Specimen Type: BLOOD No comment entered. Ordering Provider: VASU HENDERSON W Report Released Date/Time: Feb 03, 2025 12:03 PM Reporting Lab: [place] [facility] [address] [place] [address] Performing Lab: [place] [facility] [address] [place] [address] [facility] CBC HEMATOCRIT [VOLUME FRACTION] OF BLOOD 27.1 38.2 - 48.4 03/11 L Specimen Type: BLOOD No comment entered. Ordering Provider: VASU HENDERSON W Report Released Date/Time: Feb 03, 2025 12:03 PM Reporting Lab: [place] [facility] [address] [place] [address] Performing Lab: [place] [facility] [address] [place] [address] [facility] CBC MCV [ENTITIC VOLUME] BY AUTOMATED COUNT 79.5 fL 80.0 - 100.0 03/11 L Specimen Type: BLOOD No comment entered. Ordering Provider: VASU HENDERSON W Report Released Date/Time: Feb 03, 2025 12:03 PM Reporting Lab: [place] [facility] [address] [place] [address] Performing Lab: [place] [facility] [address] [place] [address] [facility] CBC MCH [ENTITIC MASS] BY AUTOMATED COUNT 25.5 pg 27.0 - 34.0 03/11 L Specimen Type: BLOOD No comment entered. Ordering Provider: VASU HENDERSON W Report Released Date/Time: Feb 03, 2025 12:03 PM Reporting Lab: [place] [facility] [address] [place] [address] Performing Lab: [place] [facility] [address] [place] [address] [facility] CBC MCHC [MASS/VOLUME ] BY AUTOMATED COUNT 32.1 g/dL 33.0 - 36.0 03/11 L Specimen Type: BLOOD No comment entered. Ordering Provider: VASU HENDERSON W Report Released Date/Time: Feb 03, 2025 12:03 PM Reporting Lab: [place] [facility] [address] [place] [address] Performing Lab: [place] [facility] [address] [place] [address] [facility] CBC PLATELETS [#/VOLUME] IN BLOOD BY AUTOMATED COUNT 263 10*3/u L 150 - 400 03/11 Specimen Type: BLOOD No comment entered. Ordering Provider: VASU HENDERSON W Report Released Date/Time: Feb 03, 2025 12:03 PM Reporting Lab: [place] [facility] [address] [place] [address] Performing Lab: [place] [facility] [address] [place] [address] [facility] CBC PLATELET MEAN VOLUME [ENTITIC VOLUME] IN BLOOD BY AUTOMATED COUNT 10.3 fL 7.5 - 11.2 03/11 Specimen Type: BLOOD No comment entered. Ordering Provider: VASU HENDERSON W Report Released Date/Time: Feb 03, 2025 12:03 PM Reporting Lab: [place] [facility] [address] [place] [address] Performing Lab: [place] [facility] [address] [place] [address] [facility] CBC ERYTHROCYTE DISTRIBUTION WIDTH [RATIO] BY AUTOMATED COUNT 18.0 11.8 - 15.1 03/11 H Specimen Type: BLOOD No comment entered. Ordering Provider: VASU HENDERSON W Report Released Date/Time: Feb 03, 2025 12:03 PM Reporting Lab: [place] [facility] [address] [place] [address] Performing Lab: [place] [facility] [address] [place] [address] [facility] CBC LYMPHOCYTES/ 100 LEUKOCYTES IN BLOOD BY AUTOMATED COUNT 20.7 03/11 Specimen Type: BLOOD No comment entered. Ordering Provider: VASU HENDERSON W Report Released Date/Time: Feb 03, 2025 12:03 PM Reporting Lab: [place] [facility] [address] [place] [address] Performing Lab: [place] [facility] [address] [place] [address] [facility] CBC MONOCYTES/10 0 LEUKOCYTES IN BLOOD BY AUTOMATED COUNT 7.3 03/11 Specimen Type: BLOOD No comment entered. Ordering Provider: VASU HENDERSON W Report Released Date/Time: Feb 03, 2025 12:03 PM Reporting Lab: [place] [facility] [address] [place] [address] Performing Lab: [place] [facility] [address] [place] [address] [facility] CBC NEUTROPHILS/ 100 LEUKOCYTES IN BLOOD BY AUTOMATED COUNT 61.6 03/11 Specimen Type: BLOOD No comment entered. Ordering Provider: VASU HENDERSON Report Released Date/Time: Feb 03, 2025 12:03 PM Reporting Lab: [place] [facility] [address] [place] [address] Performing Lab: [place] [facility] [address] [place] [address] [facility] CBC EOSINOPHILS/ 100 LEUKOCYTES IN BLOOD BY AUTOMATED COUNT 9.0 03/11 Specimen Type: BLOOD No comment entered. Ordering Provider: VASU HENDERSON W Report Released Date/Time: Feb 03, 2025 12:03 PM Reporting Lab: [place] [facility] [address] [place] [address] Performing Lab: [place] [facility] [address] [place] [address] [facility] CBC BASOPHILS/10 0 LEUKOCYTES IN BLOOD BY AUTOMATED COUNT 0.8 03/11 Specimen Type: BLOOD No comment entered. Ordering Provider: VASU HENDERSON W Report Released Date/Time: Feb 03, 2025 12:03 PM Reporting Lab: [place] [facility] [address] [place] [address] Performing Lab: [place] [facility] [address] [place] [address] [facility] CBC LYMPHOCYTES [#/VOLUME] IN BLOOD BY AUTOMATED COUNT 1.31 10*3/u L 0.77 - 4.50 03/11 Specimen Type: BLOOD No comment entered. Ordering Provider: VASU HENDERSON W Report Released Date/Time: Feb 03, 2025 12:03 PM Reporting Lab: [place] [facility] [address] [place] [address] Performing Lab: [place] [facility] [address] [place] [address] [facility] CBC MONOCYTES [#/VOLUME] IN BLOOD BY AUTOMATED COUNT 0.46 10*3/u L 0.19 - 0.8 03/11 Specimen Type: BLOOD No comment entered. Ordering Provider: VASU HENDERSON W Report Released Date/Time: Feb 03, 2025 12:03 PM Reporting Lab: [place] [facility] [address] [place] [address] Performing Lab: [place] [facility] [address] [place] [address] [facility] CBC NEUTROPHILS [#/VOLUME] IN BLOOD BY AUTOMATED COUNT 3.90 10*3/u L 2.10 - 8.00 03/11 Specimen Type: BLOOD No comment entered. Ordering Provider: VASU HENDERSON W Report Released Date/Time: Feb 03, 2025 12:03 PM Reporting Lab: [place] [facility] [address] [place] [address] Performing Lab: [place] [facility] [address] [place] [address] [facility] CBC EOSINOPHILS [#/VOLUME] IN BLOOD BY AUTOMATED COUNT 0.57 10*3/u L 0.00 - 0.60 03/11 Specimen Type: BLOOD No comment entered. Ordering Provider: VASU HENDERSON W Report Released Date/Time: Feb 03, 2025 12:03 PM Reporting Lab: [place] [facility] [address] [place] [address] Performing Lab: [place] [facility] [address] [place] [address] [facility] CBC BASOPHILS [#/VOLUME] IN BLOOD BY AUTOMATED COUNT 0.05 10*3/u L 0.00 - 0.20 03/11 Specimen Type: BLOOD No comment entered. Ordering Provider: VASU HENDERSON W Report Released Date/Time: Feb 03, 2025 12:03 PM Reporting Lab: [place] [facility] [address] [place] [address] Performing Lab: [place] [facility] [address] [place] [address] [facility] CBC IMMATURE GRANULOCYTES /100 LEUKOCYTES IN BLOOD BY AUTOMATED COUNT 0.6 03/11 Specimen Type: BLOOD No comment entered. Ordering Provider: VASU HENDERSON W Report Released Date/Time: Feb 03, 2025 12:03 PM Reporting Lab: [place] [facility] [address] [place] [address] Performing Lab: [place] [facility] [address] [place] [address] [facility] CBC IMMATURE GRANULOCYTES [#/VOLUME] IN BLOOD BY AUTOMATED COUNT 0.04 10*3/u L 0.00 - 0.05 03/11 Specimen Type: BLOOD No comment entered. Ordering Provider: VASU HENDERSON W Report Released Date/Time: Feb 03, 2025 12:03 PM Reporting Lab: [place] [facility] [address] [place] [address] Performing Lab: [place] [facility] [address] [place] [address] [facility] VITAMIN D, 25-HYDROXY 25-HYDROXYVI TAMIN D3 [MASS/VOLUME ] IN SERUM OR PLASMA 40.3 ng/mL 30 - 96 03/11 Specimen Type: SERUM No comment entered. Ordering Provider: VASU HENDERSON W Report Released Date/Time: Feb 03, 2025 12:03 PM Reporting Lab: [place] [facility] [address] [place] [address] Performing Lab: [place] [facility] [address] [place] [address] [facility] URINE ALBUMIN PROFILE-ih (PB) ALBUMIN [MASS/VOLUME ] IN URINE 114.96 mg/L 03/11 Specimen Type: URINE No comment entered. Ordering Provider: VASU HENDERSON W Report Released Date/Time: Feb 03, 2025 12:03 PM Reporting Lab: [place] [facility] [address] [place] [address] Performing Lab: [place] [facility] [address] [place] [address] [facility] URINE ALBUMIN PROFILE-ih (PB) ALBUMIN/CREA TININE [MASS RATIO] IN URINE 365.65 mg/g 0 - 30 03/11 H Specimen Type: URINE No comment entered. Ordering Provider: VASU HENDERSON W Report Released Date/Time: Feb 03, 2025 12:03 PM Reporting Lab: [place] [facility] [address] [place] [address] Performing Lab: [place] [facility] [address] [place] [address] [facility] URINE ALBUMIN PROFILE-ih (PB) CREATININE [MASS/VOLUME ] IN URINE 31.44 mg/dL 03/11 Specimen Type: URINE No comment entered. Ordering Provider: VASU HENDERSON W Report Released Date/Time: Feb 03, 2025 12:03 PM Reporting Lab: [place] [facility] [address] [place] [address] Performing Lab: [place] [facility] [address] [place] [address] [place] [facility] Vital Signs Combined list of inpatient and outpatient Vital Signs from Department of Defense and Veterans Affairs, ranging from 12 months to all on record, depending upon the facility. Vital Sign Value Date Comments Source SYSTOLIC BLOOD PRESSURE 149 05/13/2025 15:28:55 [place] [facility] DIASTOLIC BLOOD PRESSURE 89 05/13/2025 15:28:55 [place] [facility] PULSE OXIMETRY 100 % 05/13/2025 15:28:55 [facility] WEIGHT 183.1 05/13/2025 15:28:55 [place] [facility] BMI 26 kg/m2 05/13/2025 15:28:55 [place] [facility] PAIN 0 05/13/2025 15:28:55 [place] [facility] TEMPERATURE 98.2 05/13/2025 15:28:55 [place] [facility] PULSE 80 05/13/2025 15:28:55 [place] [facility] RESPIRATION 20 05/13/2025 15:28:55 [place] [facility] SYSTOLIC BLOOD PRESSURE 122 03/11/2025 15:16:00 [place] [facility] DIASTOLIC BLOOD PRESSURE 87 03/11/2025 15:16:00 [place] [facility] TEMPERATURE 97.9 03/11/2025 15:16:00 [place] [facility] PULSE 92 03/11/2025 15:16:00 [place] [facility] SYSTOLIC BLOOD PRESSURE 92 02/07/2025 13:30:00 [place] [facility] DIASTOLIC BLOOD PRESSURE 63 02/07/2025 13:30:00 [place] [facility] TEMPERATURE 98.4 02/07/2025 13:30:00 [place] [facility] PULSE 74 02/07/2025 13:30:00 [place] [facility] SYSTOLIC BLOOD PRESSURE 118 01/28/2025 13:19:17 [place] [facility] DIASTOLIC BLOOD PRESSURE 74 01/28/2025 13:19:17 [place] [facility] PULSE OXIMETRY 99 01/28/2025 13:19:17 [facility] WEIGHT 183 01/28/2025 13:19:17 [place] [facility] BMI 26 kg/m2 01/28/2025 13:19:17 [facility] PAIN 3 01/28/2025 13:19:17 [facility] TEMPERATURE 97 01/28/2025 13:19:17 [facility] PULSE 88 01/28/2025 13:19:17 [facility] RESPIRATION 20 01/28/2025 13:19:17 [facility] SYSTOLIC BLOOD PRESSURE 136 01/06/2025 10:54:47 [facility] DIASTOLIC BLOOD PRESSURE 88 01/06/2025 10:54:47 [facility] PULSE OXIMETRY 98 01/06/2025 10:54:47 [facility] WEIGHT 192.2 01/06/2025 10:54:47 [facility] BMI 28 kg/m2 01/06/2025 10:54:47 [facility] PAIN 0 01/06/2025 10:54:47 [facility] TEMPERATURE 97.8 01/06/2025 10:54:47 [facility] PULSE 116 01/06/2025 10:54:47 [facility] RESPIRATION 20 01/06/2025 10:54:47 [facility] Encounters Combined list of: 1) Encounters from Department of [facility] Affairs facilities going backup to the last 18 months, not all [place] inpatient encounters are included; 2) Encounters from the Department of Defense facilities going backup to 280 months. Location Location Details Encounter Type Encounter Number Reason For Visit Attending Provider ADM Date DC Date Status Disposition Source [facility] Outpatient Encounter [id number] 12/26 [facility] Outpatient [facility]counter [id number] 12/28 [facility] En[facility] [id number] 01/01 [facility] FEE [id number] Diagnos is: ICD-10- CM E11.9 Type 2 diabete s mellitu s without complic ations MARIE CROOK T 01/06 [facility] OFFICE O/P EST MOD 30 MIN [id number] Diagnos is: ICD-10- CM E11.9 Type 2 diabete s mellitu s without complic ations MARIE CROOK T 01/06 [facility] MTMS BY PHARM ADDL 15 MIN [id number] Diagnos is: ICD-10- CM E11.9 Type 2 diabete s mellitu s without complic ations Kianna HENDERSON MARLINE W 01/06 [facility] Outpatient Encounter [id number] 01/06 [facility] Outpatient Encounter [id number] 01/10 [facility] Outpatient Encounter [id number] 01/15 [facility] MTMS BY PHARM ADDL 15 MIN [id number] Diagnos is: ICD-10- CM E11.9 Type 2 diabete s mellitu s without complic ations Kianna HENDERSON MARLINE W 01/20 [facility] MTMS BY PHARM [employer] 15 MIN [id number] Diagnos is: ICD-10- CM E11.9 Type 2 diabete s mellitu s without complic ations ADRIANNA,JOLANTA V 01/20 [place] [facility] Outpatient Encounter [id number] 01/21 [facility] Outpatient Encounter [id number] 01/21 [facility] Outpatient Encounter [id number] 01/27 [facility] FEE [id number] KRYSTAL YOUNG R 01/28 [facility] OFFICE O/P EST LOW 20 MIN [id number] Diagnos is: ICD-10- CM E11.9 Type 2 diabete s mellitu s without complic ations KRYSTAL YOUNG R 01/28 [facility] Outpatient Encounter [id number] 01/30 [facility] Outpatient [facility]counter [id number] 01/30 [facility] Outpatient Encounter [id number] 01/31 [facility] Outpatient Encounter [id number] 01/31 [place] [facility] MTMS BY PHARM ADDL 15 MIN [id number] Diagnos is: ICD-10- CM E11.9 Type 2 diabete s mellitu s without complic ations Kianna HENDERSON W 02/03 [facility] [place] En[place] [id number] 02/03 [facility] SYNCH AUDIO-ONLY EST SF 10 [id number] Diagnos is: ICD-10- CM Z77.29 Contact with and exposur e to other hazardo us substan ANITA Stevenson CIA D 02/[address] [place] [facility] Outpatient Encounter [id number] 02/07 [facility] OFF/OP EST FEBRUARY X REQ PHY/QHP [id number] Diagnos is: ICD-10- CM N39.0 Urinary tract infecti on, site not specifi ed CUSTRED,TO RRI J 02/07 [facility] Outpatient Encounter [id number] NIMO KWONG N 02/07 [facility] Outpatient Encounter [id number] 02/07 [facility] Outpatient Encounter [id number] 02/10 [facility] Outpatient Encounter [id number] [id number] 02/11 [facility] Outpatient Encounter [id number] 02/11 [facility] Outpatient Encounter [id number] 02/13 [facility] Outpatient Encounter [id number] 02/14 [facility] Outpatient Encounter [id number] 02/14 [facility] Outpatient Encounter [id number] 02/14 [facility] Outpatient Encounter [id number] 02/14 [facility] Outpatient Encounter [id number] 02/17 [facility] Out[facility] Encounter [id number] ANABELLE ZAVALA A 02/19 [facility] Outpatient Encounter [id number] 1 02/21 [facility] Out[facility] Encounter [id number] 02/25 [facility] [place] [facility] Outpatient Encounter [id number] 02/25 [place] [facility] [place] [facility] Outpatient Encounter [id number] 02/25 [place] [facility] [place] [facility] Outpatient Encounter [id number] 02/27 YANELIS ZHU [facility] [place] [facility] Outpatient Encounter [id number] CARLOS BRODY 03/04 [place] [facility] [place] [facility] Outpatient Encounter [id number] 03/05 FAYANELIS ZHU [facility] Outpatient Encounter [id number] 03/06 [facility] [place] [facility] Outpatient Encounter [id number] 03/06 [place] [facility] Outpatient Encounter [id number] 03/07 [facility] Outpatient Encounter [id number] 03/07 [facility] Outpatient Encounter [id number] 3 KRISTAL CHAUDHRY RIL L 03/07 [facility] Outpatient Encounter [id number] 03/07 [facility] Outpatient Encounter [id number] ISIDOROAP RIL L 03/10 [facility] [place] [facility] Outpatient Encounter [id number] 03/10 [place] [facility] OFF/OP EST FEBRUARY X REQ PHY/QHP [id number] Diagnos is: ICD-10- CM E11.9 Type 2 diabete s mellitu s without complic ations CUSTRED,TO RRI J 03/11 [facility] Outpatient Encounter [id number] KAVITA ALVAREZ A 03/12 [facility] Outpatient Encounter [id number] [id number] 03/13 [facility] MTMS BY PHARM ADDL 15 MIN [id number] Diagnos is: ICD-10- CM E11.9 Type 2 diabete s mellitu s without complic ations MERLENE FELIPE 03/17 [facility] Outpatient Encounter [id number] 03/17 [facility] Outpatient Encounter [id number] [id number] 03/17 [facility] Outpatient Encounter [id number] [id number] 03/17 [facility] Outpatient Encounter [id number] [id number] 03/18 [facility] Outpatient Encounter [id number] [id number] 03/18 [facility] Outpatient Encounter [id number] [id number] 03/25 [facility] Outpatient Encounter [id number] [id number] 03/25 [facility] Outpatient Encounter [id number] [id number] 1 03/31 [facility] Outpatient Encounter [id number] [id number] 04/01 [facility] Outpatient Encounter [id number] 04/01 [facility] Outpatient Encounter [id number] 04/03 [facility] MTMS BY PHARM ADDL 15 MIN [id number] Diagnos is: ICD-10- CM E11.9 Type 2 diabete s mellitu s without complic ations MERLENE FELIPE 04/04 [facility] Outpatient Encounter [id number] [id number] 04/08 [facility] Outpatient Encounter [id number] 04/10 [facility] Outpatient Encounter [id number] ANABELLE ZAVALA 04/29 [facility] Outpatient Encounter [id number] 05/02 [facility] Outpatient Encounter [id number] 05/02 [facility] [place] [facility] Outpatient Encounter [id number] [id number] 05/02 [place] [facility] Outpatient Encounter [id number] AGUS PATRICIO 05/07 [facility] Outpatient Encounter [id number] Lani BARRIENTOS 05/09 [place] [facility] Outpatient Encounter [id number] 05/13 [facility] FEE [id number] Diagnos is: ICD-10- CM N39.0 Urinary tract infecti on, site not specifi KRYSTAL Valencia 05/13 [facility]P EST MOD 30 MIN [id number] Diagnos is: ICD-10- CM N39.0 Urinary tract infecti on, site not specifi ed KRYSTAL YOUNG 05/13 [facility] Outpatient Encounter [id number] 05/22 [facility] IMG RTA DETCJ/MNTR DS STAFF [id number] Diagnos is: ICD-10- CM Z13.5 Encount er for screeni ng for eye and ear disorde rs [facility] M 05/26 [facility] [place] [facility] Outpatient Encounter [id number] Diagnos is: ICD-10- CM Z13.5 Encount er for screeni ng for eye and ear disorde rs GERMAINE PORRAS Yasmani 05/26 [place] [facility] Outpatient Encounter [id number] [place] VIRAJ M 05/26 [facility] Social History Combined list of available smoking, tobacco, and other social history from Department of Defense and Veterans Affairs facilities. Social History Type Response Date Comment Source Tobacco smoking status WIIS [facility]-TOBACCO USE FORMER CIGARETTES 05/13/2025 [facility] History of tobacco use [place]-TOBACCO USE EVERY DAY ENDS 05/13/2025 [facility] History of tobacco use TOBACCO OFFERED PT MEDS (PROVIDER) 01/23/2020 [facility] [facility] History of tobacco use [place]-TOBACCO USE DIRECTOR TECHNICAL YES 12/16/2019 Referral to Smoking Cessation [facility] History of tobacco use CURRENT TOBACCO USER 12/18/2018 [facility] History of tobacco use VA-TOBACCO USER EVERY DAY 12/13/2018 [facility] History of tobacco use CURRENT TOBACCO USER 07/06/2010 [facility] This section is an empty social history section. DoD Plan of Care List of future care activities from Department of Veterans Affairs facilities. Additional future care activities may be listed in the Assessment and Plan section. Date/Time Care Activity Care Activity Detail Facili ty 06/16/2025 AMBULATORY - MEDICINE AMBULATORY - MEDICI [facility]
--- OUTSIDE RECORDS SUMMARY | 2025-06-04 03:25 | XMS_ITS | Clinical Summary ---
Author Organization [facility] Facility Address [address] [place] [address] Care Team Providers Care Seniour Insight Manager Name Role Phone Unavailable Primary Care Provider Unavailabl e Encounters Date Type Department Care Team Description 03/26/2025 Documentation Only [facility] [address] [place] [address] Kim Restrepo MD 03/26/2025 Transcribe Orders [facility] [address] [place] [address] Sil House MD Acute kidney [...] patient's age to complete this topic Insurance [facility] Regions 1,2,3 (VACCN)
--- OUTSIDE RECORDS SUMMARY | 2025-06-04 03:25 | XMS_ITS | Encounter Summary ---
Author Organization [facility] Address [address] [place] [address] Care Team Providers Care Interventionist Name Role Phone Unavailable Primary Care Provider Unavailabl e Encounter Details Date Type Department Care Team (Late st Contact Info) Description 05/27/2025 External Device Data [place] ABSTRACTION Provider, Abstract NO ADDRESS ON FILE Social History Tobacco Use Types Packs/Day Years Used Date Smoking Tobacco: Former Cigarettes Alcohol Use Standard Drinks/Week Comments Never 0 (1 standard drink = 0.6 oz pur e alcohol) Feeling Safe Answer Date Recorded Are you in a relationship wi th someone who hurts you emotionally and/or physically? No 02/27/2025 Food Insecurity Answer Date Recorded Patient needs follow up regardin 02/27/2025 Transportation Needs Answer Date Record ed Patient needs follow up regardin 02/27/2025 Utility Needs Answer Date Recorded Patient needs follow up regardin 02/27/2025 Sex and Gender Information Value Date Recorded Sex Assigned at Not on file Legal Sex Male 1:00 PM CDT Gender Identity Not on file Sexual Orientation Not on file documented as of this encounter Plan of Treatment Not on file documented as of this encounter Visit Diagnoses Not on filedocumented in this encounter
--- OUTSIDE RECORDS SUMMARY | 2025-06-04 03:25 | XMS_ITS | Encounter Summary ---
Author Organization [facility] Address [address] [address] Phone Care Team Providers Care Installment Agent Name Role Phone Unavailable Primary Care Provider Unavailabl e Reason for Referral * Consultation (Routine) - Closed Specialty Diagnoses / Procedures Referred By Contac t Referred To Contact Nephrology Diagnoses Acute kidney failure, not otherwise specified (HCC) Sil House MD [address] [place] [address] Phone: tel: fax: [facility], [address] [address] Phone: tel: fax: Referral ID Status Reason Start Date Expiration Date V isits Requested Visits Authorized [id number] Closed Consult and Treat 03/05/2025 09/01/2025 1 1 Encounter Details Date Type Department Care Team (Latest Contact Info) Description 03/26/2025 Transcribe Orders [facility] [address] [address] Sil House MD [address] [place], [place] [address] Acute kidney failure, not otherwise specified (HCC) [...]
--- OUTSIDE RECORDS SUMMARY | 2025-06-04 03:25 | XMS_ITS | Encounter Summary ---
Author Organization [facility] Address [address] [place] [address] Care Team Providers Care Actor Understudy Name Role Phone Unavailable Primary Care Provider [...]
--- NOTE | 2025-06-04 03:26 | CTR_ITS ---
PROCEDURE INFORMATION: Exam: CT Abdomen And Pelvis Without Contrast Exam date and time: 06/04/2025 3:57 AM Age: 44 years old Clinical indication: Abdominal pain; Flank; Other: Bilateral; Additional info: Bilateral flank pain, HX of pyelonephritis TECHNIQUE: Imaging protocol: Computed tomography of the abdomen and pelvis without contrast. Radiation optimization: All CT scans at this facility use at least one of these dose optimization techniques: automated exposure control; mA and/or kV adjustment per patient size (includes targeted exams where dose is matched to clinical indication); or iterative reconstruction. COMPARISON: CT abdomen pelvis wo con [id number] 04/27/2025 7:36 PM RADIATION DOSE METRICS: Total DLP (mGy-cm): 652.4 FINDINGS: Liver: Unremarkable. Gallbladder and biliary ducts: No calcified stones. No ductal dilation. Pancreas: No ductal dilation. Spleen: Mild splenomegaly again noted. Adrenal glands: Normal. No mass. Kidneys and ureters: Mild right hydronephrosis. No calcified ureteral stone. Findings may be due to recently passed stone. Superimposed pyelonephritis/pyelitis not excluded given the presence of mild stranding. Simple left renal cyst, no follow-up necessary. Stomach and bowel: No obstruction. No mucosal thickening. Appendix: No evidence of appendicitis. Intraperitoneal space: No free air. No significant fluid collection. Vasculature: No abdominal aortic aneurysm. Lymph nodes: No enlarged lymph nodes. Urinary bladder: Mild bladder wall thickening. Correlate with urinalysis. Reproductive: Unremarkable. Bones/joints: Unremarkable. No acute fracture. Soft tissues: Unremarkable. CT/CT kidney stone [id number] IMPRESSION: 1. Mild right hydronephrosis. No calcified ureteral stone. Findings may be due to recently passed stone. Superimposed pyelonephritis/pyelitis not excluded given the presence of mild stranding. 2. Mild bladder wall thickening. Correlate with urinalysis. COMMENTS: Consistent with the [employer]'s Incidental Findings Committee white paper (J Am Chuy Radiol 2018): Any incidental renal lesion less than 1 cm or classified as too small to characterize, or any incidental cystic renal lesion characterized as simple-appearing, is likely benign. No follow-up imaging is recommended for these lesions per consensus recommendations based on imaging criteria.
--- OUTSIDE RECORDS SUMMARY | 2025-06-04 03:27 | XMS_ITS | Patient Health Record ---
Author Organization [facility] Address [address] [place] [address] Care Team Providers Care Stenotypist Name Role Phone Sil Gatica MD Primary Care Provider UnavailJameel Rivera Unavailable [phone] Chang García Unavailable [phone] Marybel Parry Unavailable [phone] Saurabh Mendez JR Unavailable [phone] Maria Luisa Baez Unavailable [phone] Muna Dubon Unavailable [phone] Nae Love Unavailable [phone] Allergies No Known Allergies Results Component Value Reference Range Flag Notes UA Without Micro-Auto, [place] - [address] Reviewed date:05/13/2025 10:36:08 AM Interpretation: Performing Lab: Notes/Report: Glucose 2+ Bili 0 Ketones 0 Sp [place] 1.010 Blood 3+ pH 6.0 Protein +- Urobili 0 Nitrites 0 Leukocytes 3+ Culture Urine [id number] Reviewed date:04/04/2025 11:04:54 AM Interpretation: Performing Lab: Notes/Report: Culture Urine SHANEL Ruiz Culture Urine t: Culture Urine Culture Urine Access [id number] Culture Urine n: Culture Urine Microbiology Culture [...] Culture Urine O1: Culture Urine (Culture Urine 28768) Culture Urine Diagnosis Description: Unspecified symptoms and signs involving the genitourinary system Basic Metabolic Panel (BMP) 24865 Reviewed date:04/30/2025 08:36:07 PM Interpretation: Performing Lab: Notes/Report: Sodium 130 136-145 MMOL/L LOW Potassium 3.7 3.5-5.1 MMOL/L Chloride 102 98-107 MMOL/L CO2 13.7 20.0-31.0 MMOL/L LOW Glucose Serum 179 71-110 MG/DL HI Testing p erformed at [facility], [address] [place] [address] [place] [address]. CLIA ID#: [id number] BUN 91 7-21 MG/DL HI REPEATED - MONA Y Creat 6.11 .57-1.17 MG/DL HI N-rjibde-i-benzoquin one imine (NAPQI) is a metabolite of [...] the potential for falsely depressed results. GFR 10.9 NA Calculation pe rformed from GFR calculator provided by the National [employer]. Glomerular Filtration rate(GRF) is the best overall index of kidney function. Normal GFR varies according to age,sex, body size, and declines with age. The National Kidney Foundation recommends using the CKD-EPI Creatinine Equation(2020) to estimate GFR. Anion Gap 18 5-15 HI BUN/Creat Ratio 14.9 12.0-20.0 % Calcium 8.6 8.7-10.4 MG/DL LOW Osmo Serum,Calculated 302 280-300 MOSM/KG HI Ferritin 87876 Reviewed date:04/30/2025 08:36:07 PM Interpretation: Performing Lab: Notes/Report: Ferritin 1253 8-388 NG/ML HI Phosphorus (B) 43359 (Not ye t reviewed by provider) Interpretation: Performing Lab: Notes/Report: Phos 5.2 2.4-5.1 MG/DL HI PSA Diagnostic--45125 Reviewed date:03/08/2025 08:07:45 AM Interpretation: Performing Lab: Notes/Report: Diagnosis Description: Abscess of prostate PSA .12 .00-4.00 NG/ML PSA concen trations, regardless of the value, should not be interpreted as definitive evidence for the presence or absence of prostate cancer. Microscopic Urine 10315 Reviewed date:03/08/2025 08:08:02 AM Interpretation: Performing Lab: Notes/Report: Diagnosis Description: Abscess of prostate Diagnosis Description: Unspecified kidney failure RBC U 94 NA WBC U 378 0-5 /HPF HI Bacteria 1+ NA Hyaline Casts 3 NA SQ EPI <1 NA US Renal w/bladder-02607 Reviewed date:04/10/2025 03:53:39 PM Interpretation: Performing Lab: Notes/Report: See Below For Report US Renal w/bladder To be completed THIS WEEK OR NEXT. No later than 04/11/2025. Read See Below For Report CRP 13656 Reviewed date:03/26/2025 08:16:31 AM Interpretation: Performing Lab: Notes/Report: Diagnosis Description: Abscess of prostate Diagnosis Description: Unspecified kidney failure CRP .66 .40-1.00 MG/DL CRP 60770 Reviewed date:02/14/2025 07:29:09 AM Interpretation: Performing Lab: Notes/Report: 4421 @ 2013 CRP 12.03 .40-1.00 MG/DL HI CRP 68825 Reviewed date:02/14/2025 07:27:42 AM Interpretation: Performing Lab: Notes/Report: 4421 @ 2013 CRP 9.79 .40-1.00 MG/DL HI CRP 20219 Reviewed date:03/08/2025 08:08:32 AM Interpretation: Performing Lab: Notes/Report: Diagnosis Description: Abscess of prostate Diagnosis Description: Unspecified kidney failure CRP 3.45 .40-1.00 MG/DL HI CBC w\o Diff 03470 Reviewed date:12/28/2024 01:56:29 PM Interpretation: Performing Lab: Notes/Report: 1W 2424 WBC 6.8 4.5-11.0 X10'3 RBC 4.83 4.50-5.90 X10'6 Hgb 13.0 13.5-17.5 G/DL LOW Hct 37.1 41.0-53.0 % LOW MCV 76.8 80.0-100.0 FL LOW MCH 26.9 27.0-31.0 PG LOW MCHC 35.0 31.0-37.0 G/DL Platelet 188 150-400 X10'3 RDW-SD 37.6 35.0-49.0 FL RDW-CV 13.3 12.2-15.6 % MPV 10.6 9.2-12.0 FL Phosphorus (B) 94951 Reviewed date:04/30/2025 08:31:34 PM Interpretation: Performing Lab: Notes/Report: Phos 5.1 2.4-5.1 MG/DL Magnesium (B) 13333 Reviewed date:04/30/2025 08:31:34 PM Interpretation: Performing Lab: Notes/Report: Magnesium 2.5 1.8-2.4 MG/DL TX Comprehensive Metabolic Pane l (CMP) 50767 Reviewed date:03/26/2025 08:16:44 AM Interpretation: Performing Lab: Notes/Report: Diagnosis Description: Abscess of prostate Diagnosis Description: Unspecified kidney failure Glucose Serum 99 71-110 MG/DL Testing p erformed at [facility], [address] [place] [address] [place] [address]. CLIA ID#: [id number] BUN 67 7-21 MG/DL HI Creat 3.13 .57-1.17 MG/DL HI Use of this assay is not recommended for patients undergoing treatment with phenindione, due to the potential for falsely depressed results. C-wyilmp-t-benzoquin one imine (NAPQI) is a metabolite of [...] UNIT/L Osmo Serum,Calculated 310 280-300 MOSM/KG HI Comprehensive Metabolic Pane l (CMP) 16889 Reviewed date:03/08/2025 08:08:41 AM Interpretation: Performing Lab: Notes/Report: Diagnosis Description: Abscess of prostate Diagnosis Description: Unspecified kidney failure Glucose Serum 217 71-110 MG/DL HI Testing p erformed at [facility], [address] [place] [address] [place] [address]. CLIA ID#: [id number] BUN 58 7-21 MG/DL HI Creat 4.18 .57-1.17 MG/DL HI Use of this assay is not recommended for patients undergoing treatment with phenindione, due to the potential for falsely depressed results. T-toboqg-h-benzoquin one imine (NAPQI) is a metabolite of [...] 12-78 UNIT/L Osmo Serum,Calculated 289 280-300 MOSM/KG Comprehensive Metabolic Pane l ([facility]) 48962 Reviewed date:02/14/2025 07:27:55 AM Interpretation: Performing Lab: Notes/Report: 4421 @ 2014 Glucose Serum 138 71-110 MG/DL HI Testing p erformed at [facility], [address] [place] [address] [place] [address]. CLIA ID#: [id number] BUN 44 7-21 MG/DL HI Creat 6.31 .57-1.17 MG/DL HI P-dvyxot-l-benzoquin one imine (NAPQI) is a metabolite of [...] 12-78 UNIT/L Osmo Serum,Calculated 297 280-300 MOSM/KG Comprehensive Metabolic Pane l ([facility]) 10414 Reviewed date:02/14/2025 07:29:14 AM Interpretation: Performing Lab: Notes/Report: 4421 @ 2014 Glucose Serum 123 71-110 MG/DL HI Testing p erformed at [facility], [address] [place] [address] [place] [address]. CLIA ID#: [id number] BUN 46 7-21 MG/DL HI Creat 6.30 .57-1.17 MG/DL HI X-ajhriy-v-benzoquin one imine (NAPQI) is a metabolite of [...] 295 280-300 MOSM/KG CBC w\ Auto Diff 17060 Reviewed date:02/14/2025 07:29:24 AM Interpretation: Performing Lab: [...] HI Lymph Auto% 11.8 22.0-44.0 % LOW [place] Auto% 4.6 3.0-7.0 % Eos Auto% 2.8 2.0-4.0 % Baso Auto% 0.2 0.0-1.0 % Imm Gran% 3.4 .0-.4 % HI Neutro Abs 6.35 .80-7.70 Absolute Neutrophil Count 6350 NA Lymph Abs .97 .10-4.10 [place] Abs .38 .20-1.00 Eos Abs .23 .00-.40 Baso Abs .02 .00-.20 Imm Gran Abs .28 .00-.10 HI NRBC# .00 .00-.20 NRBC% .00 .00-.20 /100 intact WBC's CBC w\ Auto Diff 82168 Reviewed date:02/14/2025 07:27:34 AM Interpretation: Performing Lab: [...] HI Lymph Auto% 11.6 22.0-44.0 % LOW [place] Auto% 4.9 3.0-7.0 % Eos Auto% 3.3 2.0-4.0 % Baso Auto% 0.2 0.0-1.0 % Imm Gran% 3.2 .0-.4 % HI Neutro Abs 7.15 .80-7.70 Absolute Neutrophil Count 7150 NA Lymph Abs 1.08 .10-4.10 [place] Abs .46 .20-1.00 Eos Abs .31 .00-.40 Baso Abs .02 .00-.20 Imm Gran Abs .30 .00-.10 HI NRBC# .00 .00-.20 NRBC% .00 .00-.20 /100 intact WBC's CBC w\ Auto Diff 55127 Reviewed date:03/08/2025 08:08:36 AM Interpretation: Performing Lab: [...] 40.0-70.0 % Lymph Auto% 23.6 22.0-44.0 % [place] Auto% 7.4 3.0-7.0 % HI Eos Auto% 8.8 2.0-4.0 % HI Baso Auto% 0.6 0.0-1.0 % Imm Gran% .6 .0-.4 % HI Neutro Abs 2.87 .80-7.70 Absolute Neutrophil Count 2870 NA Lymph Abs 1.15 .10-4.10 [place] Abs .36 .20-1.00 Eos Abs .43 .00-.40 HI Baso Abs .03 .00-.20 Imm Gran Abs .03 .00-.10 NRBC# .00 .00-.20 NRBC% .00 .00-.20 /100 intact WBC's CBC w\ Auto Diff 64285 Reviewed date:03/26/2025 08:16:37 AM Interpretation: Performing Lab: [...] 40.0-70.0 % Lymph Auto% 38.4 22.0-44.0 % [place] Auto% 5.7 3.0-7.0 % Eos Auto% 7.9 2.0-4.0 % HI Baso Auto% 0.6 0.0-1.0 % Imm Gran% .4 .0-.4 % Neutro Abs 2.33 .80-7.70 Absolute Neutrophil Count 2330 NA Lymph Abs 1.90 .10-4.10 [place] Abs .28 .20-1.00 Eos Abs .39 .00-.40 Baso Abs .03 .00-.20 Imm Gran Abs .02 .00-.10 NRBC# .00 .00-.20 NRBC% .00 .00-.20 /100 intact WBC's Basic Metabolic Panel (BMP) 34524 Reviewed date:01/30/2025 10:24:37 AM Interpretation: Performing Lab: Notes/Report: in Endoscopy pre procedure area Sodium 134 136-145 MMOL/L LOW Potassium 3.6 3.5-5.1 MMOL/L Chloride 98 98-107 MMOL/L CO2 22.9 20.0-31.0 MMOL/L Glucose Serum 291 71-110 MG/DL HI Testing p erformed at [facility], [address] [place] [address] [place] [address]. CLIA ID#: [id number] BUN 37 7-21 MG/DL HI DELTA NOTED BY CINTHYA Wells 2.80 .57-1.17 MG/DL HI Use of this assay is not recommended for patients undergoing treatment with phenindione, due to the potential for falsely depressed results. K-tnwvfb-d-benzoquin one imine (NAPQI) is a metabolite of [...] MG/DL LOW Osmo Serum,Calculated 297 280-300 MOSM/KG Basic Metabolic Panel (BMP) 52185 Reviewed date:04/30/2025 08:35:52 PM Interpretation: Performing Lab: Notes/Report: Sodium 131 136-145 MMOL/L LOW Potassium 3.6 3.5-5.1 MMOL/L Chloride 103 98-107 MMOL/L CO2 12.5 20.0-31.0 MMOL/L LOW Glucose Serum 148 71-110 MG/DL HI Testing p erformed at [facility], [address] [place] [address] [place] [address]. CLIA ID#: [id number] BUN 78 7-21 MG/DL HI Delta check no dewey, will monitor Creat 6.13 .57-1.17 MG/DL HI Use of this assay is not recommended for patients undergoing treatment with phenindione, due to the potential for falsely depressed results. H-opnjfh-t-benzoquin one imine (NAPQI) is a metabolite of acetaminophen, NAPQI concentrations of apparoximately 10 mg/L correlation to toxic levels of acetaminophen demonstrates a greater than or equil to 10% change in results. NAPQI concentrations greater than this may lead to falsely depressed results for patient samples. GFR 10.8 NA Calculation pe rformed from GFR calculator provided by the National Kidney [employer]. Glomerular Filtration rate(GRF) is the best overall index of kidney function. Normal GFR varies according to age,sex, body size, and declines with age. The National Kidney Foundation recommends using the CKD-EPI Creatinine Equation(2020) to estimate GFR. Anion Gap 19 5-15 HI BUN/Creat Ratio 12.7 12.0-20.0 % Calcium 9.3 8.7-10.4 MG/DL Osmo Serum,Calculated 298 280-300 MOSM/KG Culture Urine 91859 Reviewed date:03/08/2025 08:07:55 AM Interpretation: Performing Lab: Notes/Report: Culture Urine SHANEL Ruiz Culture Urine t: Culture Urine Culture Urine Accessio [id number] Culture Urine n: Culture Urine Microbiology Culture [...] Culture Urine O1: Culture Urine (Culture Urine 12650) Culture Urine Diagnosis Description: Abscess of prostate Culture Urine Diagnosis Description: Unspecified kidney failure Culture Urine 28314 Reviewed date:05/23/2025 06:55:17 AM Interpretation: Performing Lab: Notes/Report: Culture Urine SHANEL Ruiz R Culture Urine t: Culture Urine Culture Urine Accessio [id number] Culture Urine n: Culture Urine Microbiology Culture Urine PROCEDURE: Culture Urine [O1] Culture Urine SOURCE: Urine BODY SITE: Culture Urine COLLECTED DATE/TIME: 05/20/2025 10:22 CDT RECEIVED DATE/TIME: 05/20/2025 15:23 CDT Culture Urine START DATE/TIME: 05/20/2025 15:24 CDT FREE TEXT SOURCE: Culture Urine FINAL REPORT Culture Urine Final Report [] Culture Urine Verified Date/Time: 05/22/2025 06:08 CDT Culture Urine No growth at 48 hours Culture Urine Order Comments Culture Urine O1: Culture Urine (Culture Urine 34696) Culture Urine Diagnosis Description: Acute cystitis without hematuria UA Without Micro-Auto, [place] - [address] Reviewed date:05/20/2025 10:22:04 AM Interpretation: Performing Lab: Notes/Report: Glucose 1+ Bili 0 Ketones 0 Sp [place] 1.010 Blood 3+ pH 6.0 Protein +- Urobili 0 Nitrites 0 Leukocytes 3+ UA Without [place], [place] - [address] Reviewed date:04/01/2025 08:30:44 AM Interpretation: Performing Lab: Notes/Report: Glucose 2+ Bili - Ketones - Sp [place] 1.010 Blood 1+ pH 6.0 Protein +- Urobili - Nitrites - Leukocytes 3+ % Iron Saturation (Fe & TIBC )--47790,82087 Reviewed date:02/12/2025 04:25:31 PM Interpretation: Performing Lab: [...] % Iron Saturation 10 20-50 % LOW CRP 18404 Reviewed date:02/24/2025 08:31:22 AM Interpretation: Performing Lab: Notes/Report: report called 3529 CRP 3.18 .40-1.00 MG/DL HI Phosphorus (B) 98969 Reviewed date:02/12/2025 04:25:31 PM Interpretation: Performing Lab: Notes/Report: 4421 @ 2013 Phos 6.1 2.4-5.1 MG/DL HI Magnesium (B) 65098 Reviewed date:02/12/2025 04:25:31 PM Interpretation: Performing Lab: Notes/Report: 4421 @ 2013 Magnesium 1.9 1.8-2.4 MG/DL Ferritin 38456 Reviewed date:02/12/2025 04:25:31 PM Interpretation: Performing Lab: Notes/Report: 44 @ 2013 Ferritin 1106 8-388 NG/ML HI Comprehensive Metabolic Pane l (CMP) 52977 Reviewed date:02/13/2025 03:35:54 PM Interpretation: Performing Lab: Notes/Report: 4421 @ 2013 Glucose Serum 134 71-110 MG/DL HI Testing p erformed at [facility], [address] [place] [address] [place] [address]. CLIA ID#: [id number] BUN 52 7-21 MG/DL HI Creat 6.93 .57-1.17 MG/DL HI Use of this assay is not recommended for patients undergoing treatment with phenindione, due to the potential for falsely depressed results. N-jptqhr-g-benzoquin one imine (NAPQI) is a metabolite of [...] 12-78 UNIT/L Osmo Serum,Calculated 298 280-300 MOSM/KG Calcium Ionized (B) 16758 Reviewed date:02/12/2025 04:25:31 PM Interpretation: Performing Lab: Notes/Report: 4421 @ 2014 Calcium Ionized 1.06 1.09-1.30 MMOL/L LOW Basic Metabolic Panel (BMP) 39728 (Not yet reviewed by provider) Interpretation: Performing Lab: Notes/Report: Sodium 135 136-145 MMOL/L LOW Potassium 3.8 3.5-5.1 MMOL/L Chloride 106 98-107 MMOL/L CO2 17.4 20.0-31.0 MMOL/L LOW Glucose Serum 142 71-110 MG/DL HI Testing p erformed at [facility], [address] [place] [address] [place] [address]. CLIA ID#: [id number] BUN 67 7-21 MG/DL HI REVIEWED - MONA Y. Creat 5.24 .57-1.17 MG/DL HI Use of this assay is not recommended for patients undergoing treatment with phenindione, due to the potential for falsely depressed results. R-bycgnn-d-benzoquin one imine (NAPQI) is a metabolite of acetaminophen, NAPQI concentrations of apparoximately 10 mg/L correlation to toxic levels of acetaminophen demonstrates a greater than or equil to 10% change in results. NAPQI concentrations greater than this may lead to falsely depressed results for patient samples. GFR 13.1 NA Calculation pe rformed from GFR calculator provided by the National Kidney Foundation. Glomerular Filtration rate(GRF) is the best overall index of kidney function. Normal GFR varies according to age,sex, body size, and declines with age. The National Kidney Foundation recommends using the CKD-EPI Creatinine Equation(2020) to estimate GFR. Anion Gap 15 5-15 BUN/Creat Ratio 12.8 12.0-20.0 % Calcium 8.9 8.7-10.4 MG/DL Osmo Serum,Calculated 302 280-300 MOSM/KG HI Add to Specimen in lab--No C PT Reviewed date:04/30/2025 08:35:52 PM Interpretation: Performing Lab: Notes/Report: Add To Specimen In Lab Yes Glucometer WBG--60004 Reviewed date:01/21/2025 02:36:40 PM Interpretation: Performing Lab: Notes/Report: Glucometer WBG 269 65-110 MG/DL HI Notify ~Asymptomatic~Meter : [id number]~Napping Machine Operator: INO TITUS % Iron Saturation (Fe & TIBC )--30518,60106 Reviewed date:04/30/2025 08:36:07 PM Interpretation: Performing Lab: Notes/Report: Iron 7 65-175 MCG/DL LOW Per Iron as say instruction for Use(IFU), patients treated with metal-binding drugs (e.g.deferoxamine) may have depressed iron values as chelated iron may not properly react in the iron assay. Testing was performed with this assay method. TIBC 178 250-450 NG/DL LOW % Iron Saturation 4 20-50 % LOW US Renal w/bladder-87647 Reviewed date:04/10/2025 03:53:48 PM Interpretation: Performing Lab: Notes/Report: zae=[id number]&org=iSite CBC w\o Diff 89934 Reviewed date:05/05/2025 04:51:50 PM Interpretation: Performing Lab: Notes/Report: WBC 6.4 4.5-11.0 X10'3 RBC 2.69 4.50-5.90 X10'6 LOW Hgb 7.1 13.5-17.5 G/DL LOW Hct 21.9 41.0-53.0 % LOW MCV 81.4 80.0-100.0 FL MCH 26.4 27.0-31.0 PG LOW MCHC 32.4 31.0-37.0 G/DL Platelet 344 150-400 X10'3 RDW-SD 40.7 35.0-49.0 FL RDW-CV 13.5 12.2-15.6 % MPV 9.5 9.2-12.0 FL CBC w\o Diff 34443 Reviewed date:04/30/2025 08:36:07 PM Interpretation: Performing Lab: Notes/Report: WBC 9.9 4.5-11.0 X10'3 RBC 2.87 4.50-5.90 X10'6 LOW Hgb 7.7 13.5-17.5 G/DL LOW Hct 23.3 41.0-53.0 % LOW MCV 81.2 80.0-100.0 FL MCH 26.8 27.0-31.0 PG LOW MCHC 33.0 31.0-37.0 G/DL Platelet 267 150-400 X10'3 RDW-SD 40.4 35.0-49.0 FL RDW-CV 13.6 12.2-15.6 % MPV 9.7 9.2-12.0 FL Phosphorus (B) 21751 Reviewed date:05/05/2025 04:51:50 PM Interpretation: Performing Lab: Notes/Report: Phos 4.7 2.4-5.1 MG/DL Magnesium (B) 11956 Reviewed date:05/05/2025 04:51:50 PM Interpretation: Performing Lab: Notes/Report: Magnesium 2.3 1.8-2.4 MG/DL CBC w\ Auto Diff 40635 Reviewed date:02/12/2025 04:25:31 PM Interpretation: Performing Lab: Notes/Report: 4421 @ 2013 WBC 8.2 4.5-11.0 X10'3 RBC 2.92 4.50-5.90 X10'6 LOW Hgb 7.3 13.5-17.5 G/DL LOW Hct 23.8 41.0-53.0 % LOW MCV 81.5 80.0-100.0 FL MCH 25.0 27.0-31.0 PG LOW MCHC 30.7 31.0-37.0 G/DL LOW Platelet 338 150-400 X10'3 RDW-SD 47.3 35.0-49.0 FL RDW-CV 15.9 12.2-15.6 % HI MPV 8.4 9.2-12.0 FL LOW Neutro Auto% 74.6 40.0-70.0 % HI Lymph Auto% 12.7 22.0-44.0 % LOW [place] Auto% 6.6 3.0-7.0 % Eos Auto% 3.2 2.0-4.0 % Baso Auto% 0.2 0.0-1.0 % Imm Gran% 2.7 .0-.4 % HI Neutro Abs 6.10 .80-7.70 Absolute Neutrophil Count 6100 NA Lymph Abs 1.04 .10-4.10 [place] Abs .54 .20-1.00 Eos Abs .26 .00-.40 Baso Abs .02 .00-.20 Imm Gran Abs .22 .00-.10 HI NRBC# .00 .00-.20 NRBC% .00 .00-.20 /100 intact WBC's Reason For Referral Reason EGD/COLON Diagnosis 1 Microcytic anemia (D 50.9) Diagnosis 2 Chronic diarrhea (K5 2.9) Diagnosis 3 Chronic gastroesopha geal reflux disease (K21.9) Referring Provider First Name Sim Santosu ff Referring Provider Last Name [place] Referring Provider [facility] Referred Organization [facility] Referred Provider Marybel Parry Referred Address [address] [place],[address],[place] Referral Priority Routine Reason Prostate Abscess Diagnosis 1 Prostate abscess (N4 1.2) Referring Provider First Name [place] Lamont ff Referring Provider Last Name [place] Referring Provider Speciality [facility] Referred Organization [facility] Referred Provider Jameel Schmitt Referred Address [address],[place],[address],[place] Referred Provider Specialty Urology Referral Priority Routine Reason PEPTIC ULCER DISEASE GASTRITIS Diagnosis 1 Peptic ulcer disease (K27.9) Diagnosis 2 Gastritis (K29.70) Referral Organization [facility] Referring Provider First Name Saurabh Referring Provider Last Name Andrea Referring Provider Speciality Infectious Disease Referred Organization [facility] Referred Provider Marybel Parry Referred Address [address] [place],[address],[place] Referred Provider Specialty Gastroentero logy Referral Priority Routine Reason Referring to Dr Jona gutierrez. Thank you! , RFS sent Diagnosis 1 Referral of patient (Z76.89) Referring Provider First Name Jameel Referring Provider Last Name Keshia Referring Provider Speciality Urology Referred Organization [facility] Referred Provider Jess Hyde Referred Address [address] [place] [address] O[address],[place],[address],[place] Referred Provider Specialty Nurse Abilio dowd Referral Priority Routine Reason Referring to Dr Jona gutierrez. Thank you! RFS sent Diagnosis 1 Referral of patient (Z76.89) Referral Organization [facility] Referring Provider First Name Jameel Referring Provider Last Name Keshia Referring Provider Speciality Urology Referred Organization [facility] Referred Provider Chang García Referred Address [address] [place] [address] [address],[place],[address],[place] Referred Provider Specialty Nephrology Referral Priority Routine Reason Referring to Dr Eric freed for chronic UTI. Thank you! RFS sent Diagnosis 1 Chronic UTI (N39.0) Referral Organization [facility] Referring Provider First Name Jameel Referring Provider Last Name Keshia Referring Provider Speciality Urology Referred Provider Saurabh Mendez Referred Provider Specialty Internal Med icine Referral Priority Routine Reason Chronic UTI RFS Se nt 05/13/25 Diagnosis 1 Chronic UTI (N39.0) Referring Provider First Name Jameel Referring Provider Last Name Keshia Referring Provider Speciality Urology Referred Organization [facility] Referred Provider Saurabh Mendez Referred Address [address] [place] [address],[facility],[place],[address], Referral Priority Routine Medications Medication SIG (Take, Route, Frequency, Duration) Notes Start Date End Date Status metFORMIN HCl 500 MG Tablet 1 tablet with a meal Orally Twice daily Not-Taking Lantus SoloStar 100 UNIT/ML Solution Pen-injector Inject up to 50 Units Subcutaneous Daily; Duration: 30 days 50% discount Active Protonix 40 MG Tablet Delayed Release 1 tablet Orally Once a day Not-Taking NIFEdipine 60 MG Tablet Extended Release [...] as needed Orally Once a day Active Tylenol Extra Strength 500 MG Tablet 1 tablet as needed Orally every 6 hrs Active Zetia 10 MG Tablet 1 tablet Orally Once a day Active Gvoke HypoPen 2-Pack 1 MG/0.2ML Solution Auto-injector as directed Subcutaneous PRN; Duration: 365 days 50% discount 01/27/2025 01/27/2027 Not-Taking Carafate 1 GM Tablet 1 tablet on an empty stomach Orally Once daily Active cefTRIAXone Sodium 2 GM Solution Reconstituted as directed Injection Active Iron 325 (65 Fe) MG Tablet 1 tablet Orally Twice daily Not-Taking Ferrous Gluconate 324 (38 Fe) MG Tablet 1 tablet Orally Three times a Week Active Social History Tobacco Use: Social History Observation Description Date Details (start date - stop date) Current Smoker NA - NA Social History Tobacco Use: Social Info Question Answer Notes Tobacco Control (Standard) Tobacco use: Current smoker Additional Findings: Tobacco user e-cigarette Section Notes: Denies Caffeine Denies Alcohol Denies Caffeine Denies Alcohol Problems Problem Type SNOMED Code ICD Code Onset Dates Problem Status W/U Status Risk Notes Problem Type II diabetes mellitus without complication (667256869) Type 2 diabetes mellitus without complications (E11.9) Active confirmed Problem Diabetic severe hyperglycemia (034909059) Other specified diabetes mellitus with hyperglycemia (E13.65) Active confirmed Problem Benign prostatic hypertrophy without outflow obstruction (528198091) Benign prostatic hyperplasia without lower urinary tract symptoms (N40.0) Active confirmed Problem Lower urinary tract symptoms due to benign prostatic hypertrophy (19476836560411) Benign prostatic hyperplasia with lower urinary tract symptoms, symptom details unspecified (N40.1) Active confirmed Problem Gastroesophageal reflux disease (disorder) (854113904) Chronic GERD (K21.9) Active confirmed Problem Iron deficiency anemia (11334304) Iron deficiency anemia, unspecified iron deficiency anemia type (D50.9) Active confirmed Problem Hyperparathyroidism (80103675) Hyperparathyroidism (E21.3) Active confirmed Problem Hyperphosphatemia (20781468) Hyperphosphatemia (E83.39) Active confirmed Problem Gastritis (7871766) Gastritis (K29.70) Active c onfirmed Problem Peptic ulcer disease (85465823) Peptic ulcer disease (K27.9) Active confirmed Problem Renal failure syndrome (15740636) Renal failure, unspecified chronicity (N19) Active confirmed Problem Microcytic anemia (432558305) Microcytic anemia (D50.9) Active confirmed Problem Iron deficiency anemia (10820597) Iron deficiency anemia (D50.9) Active confirmed Problem Neurologic disorder associated with type II diabetes mellitus (411003561) 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) Active confirmed Problem Hyperglycemia due to type 2 diabetes mellitus (945880142155373) Type 2 diabetes mellitus with hyperglycemia, unspecified whether mcc insulin use (E11.65) Active confirmed Problem Long-term current us e of insulin (927445505) Current use of insulin (Z79.4) Active confirmed Problem Gastroesophageal reflux disease (447389030) Chronic gastroesophageal reflux disease (K21.9) Active confirmed Problem Ketoacidosis in type II diabetes mellitus (757874615) Diabetes mellitus type 2 with ketoacidosis, uncontrolled (E11.10) Active confirmed Vital Signs Heart Rate 103 /min 05/20/2025 Temperature 98.2 degrees Fahrenheit 05/20/2025 Respiratory Rate 17 /min 03/06/2025 Blood pressure diastolic 98 mm Hg 05/20/2025 Oximetry 100 % 03/24/2025 Height-cm 177.8 cm 05/20/2025 Weight-kg 82.74 kg 05/20/2025 Height 70 in 05/20/2025 Blood pressure systolic 145 mm Hg 05/20/2025 Weight 182.4 lbs 05/20/2025 BMI 26.17 kg/m2 05/20/2025 Procedures Procedure Date Ordered Date Performed Result Body Sit e PVR (Post Void Residual) 04/01/2025 04/01/2025 N/A PVR (Post Void Residual) 05/13/2025 05/13/2025 45mL PVR (Post Void Residual) 05/20/2025 05/20/2025 0mL Encounters Encounter Location Date Provider Diagnosis [facility] [address] [facility] [place] [address] 5 Marybel Parry Iron deficiency anemia, unspecified iron deficiency anemia type D50.9 [facility] [address] [facility] [address] 5 Nae Love Other specified diabetes mellitus with hyperglycemia E13.65 ; Current use of insulin Z79.4 ; Diabetes education, encounter for Z71.89 ; Uses self-applied continuous glucose monitoring device Z97.8 and At risk for hypoglycemia Z91.89 [facility] [address] [place] [address], [place] [address] 5 Saurabh Andrea Abscess of prostate N41.2 and Renal failure, unspecified chronicity 9 [facility] [address] [place] [address], [place] [address] 5 Saurabh Andrea Abscess of prostate N41.2 and Renal failure, unspecified chronicity [address] [facility] [address] [place] [address], [place] [address] 5 Saurabh Andrea Abscess of prostate N41.2 and Renal failure, unspecified chronicity 9 [facility] [address] [place] [address] 5 Jameel Keshia Abscess of prostate N41.2 ; Flank pain R10.9 ; Incomplete bladder emptying R33.9 and Unspecified symptoms and signs involving the genitourinary system R39.9 [facility] [address] [place] [address] Dr [address] [place] [address] 5 Jameel Schmitt Benign prostatic hyperplasia with lower urinary tract symptoms, symptom details unspecified N40.1 ; Chronic UTI N39.0 and Hypotonic 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 [facility] [address] [place] [address] [place] [address] 5 Jameel Schmitt Cystitis N30.90 and Acute cystitis without hematuria N30.00 [facility] [address] [place] [address] 5 Munasteve Dubon [facility] [address] [place] [address] 5 Abodunrin Baderere Iron deficiency anemia, unspecified iron deficiency anemia type D50.9 [facility] [address] [place] [address] 5 Abodunrin Reynaldoerere Acute kidney injury N17.9 [facility] [address] [place] [address] [address] [place] [address] 5 Chang García [facility] [address] [place] [address] 5 Abodunrin Badalondra [facility] [address] [place] [address] [place] [address] 5 Saurabh Mendez [facility] [address] [place] [address] Dr [address] [place] [address] 5 Jameel Schmitt Abscess of prostate N41.2 and Flank pain R10.9 [facility] [address] [place] [address] [place] [address] 5 Jameel Schmitt Urinary retention R33.9 and Hematuria, unspecified type R31.9 [facility] [address] [place] [address] Dr [address] [place] [address] 5 Chang García Iron deficiency anemia D50.9 ; Hyperphosphatemia E83.39 ; Hyperparathyroidism E21.3 and RENNY (acute kidney injury) N17.9 [facility] [address] [place] [address] [place] [address], [place] [address] 5 Jameel Schmitt [facility] [address] [place] [address] [place] [address], [place] [address] 5 Jameel Schmitt Assessments Encounter Date Diagnosis (ICD Code) Assessment [...] failure -discharged 02-24-25, then was admitted in [facility]. - Requested pt get discharge summary from that admission. 3. Diagnostics; -CT scan 02-07-25; 3 cm abscess noted within the prostate. - CT Scan 02-21-25; The right and left kidneys both appear enlarged and edematous with mild surrounding stranding, unchanged compared to 02/07/2025. Consider pyelonephritis . Some fluid collections along the borders of [...] splenomegaly. 4. 02-08-25; RESECTION PROSTATE TRANSURETHRAL, transurethral resection/unro ofing of the prostatic abscess . 02-08-25 UC E. coli (R: amp, S: fortaz, cipro);02-07-25 Urine culture; E coli (R:amp, S: Fortaz, cipro) - 02-23-25 UC Neg at 48 hrs -05-21-25 BC Neg 6. Antibiotics; Day # 42 on 03-22-25 - DC Fortaz on 03-24-25 post-op (start date 02-09-25) duration 6 weeks AET 03-22-25 - DC Cipro PO 500mg BID (start date 03-24-25) . Pt notified to DC Cipro on 03-25-25 @ 945am 7. Gastritis, Peptic ulcer disease, improved on Carafate and Protonix. - Pt doing better on this treatment Labs 02-14-25 W 9.3, [employer] 6.31, CRP 9.79 02-23-25 W 7.6, [employer] 4.34, CRP 3.18 03-06-25; W 4.9, [employer] 4.18,, CRP 3.45, PSA .12, UM WBC U 378 03-24-25 W 5.0, [employer] 3.13, CRP .66 Follow up; PRN repeat [...] A1C of 7% or less, diabetes medications, self-monitorin g blood glucose, physical activity, hyperglycemia and hypoglycemia, [...] a fingerstick blood glucose monitor or the [employer] Sulema 3 cgm daily. The Sulema 3 [...] reviewed. Verbal and written instructions given including [employer] Customer support contact information. Patient is able [...] failure -discharged 02-24-25, then was admitted in [facility]. - Requested pt get discharge summary from that admission. 3. Diagnostics; -CT scan 02-07-25; 3 cm abscess noted within the prostate. - CT Scan 02-21-25; The right and left kidneys both appear enlarged and edematous with mild surrounding stranding, unchanged compared to 02/07/2025. Consider pyelonephritis . Some fluid collections along the borders of [...] splenomegaly. 4. 02-08-25; RESECTION PROSTATE TRANSURETHRAL, transurethral resection/unro ofing of the prostatic abscess . 02-08-25 UC E. coli (R: amp, S: fortaz, cipro);02-07-25 Urine culture; E coli (R:amp, S: Fortaz, cipro) - 02-23-25 UC Neg at 48 hrs -02-26-25 BC Neg 6. Antibiotics; Day # 03-06-25 Continue Fortaz post-op Day #26 (start date 02-09-25) duration 6 weeks - DC'd Rocephin due to nausea/vomitin g 7. Gastritis, Peptic ulcer disease, improved on Carafate and Protonix. - Pt doing better on this treatment Labs 02-14-25 W 9.3, [employer] 6.31, CRP 9.79 02-23-25 W 7.6, [employer] 4.34, CRP 3.18 Follow up; 1 week labs and UC Rosa Lea Shirlene 03/06/2025 Renal failure, unspecified chronicity (ICD-10 - N19) 1. 44 yo white male with a history of recurrent UTI's, T2DM, nephropathy, neuropathy, and cigarette smoker 2. Admission 02-07-25 with Prostatic abscess, and renal failure -discharged 02-24-25, then was admitted in [facility]. - Requested pt get discharge summary from that admission. 3. Diagnostics; -CT scan 02-07-25; 3 cm abscess noted within the prostate. - CT Scan 02-21-25; The right and left kidneys both appear enlarged and edematous with mild surrounding stranding, unchanged compared to 02/07/2025. Consider pyelonephritis . Some fluid collections along the borders of [...] splenomegaly. 4. 5; RESECTION PROSTATE TRANSURETHRAL, transurethral resection/unro ofing of the prostatic abscess . 02-08-25 UC E. coli (R: amp, S: fortaz, cipro);02-07-25 Urine culture; E coli (R:amp, S: Fortaz, cipro) - 02-23-25 UC Neg at 48 hrs -02-26-25 BC Neg 6. Antibiotics; Day # 03-06-25 Continue Fortaz post-op Day #26 (start date 02-09-25) duration 6 weeks - DC'd Rocephin due to nausea/vomitin g 7. Gastritis, Peptic ulcer disease, improved on Carafate and Protonix. - Pt doing better on this treatment Labs 02-14-25 W 9.3, [employer] 6.31, CRP 9.79 02-23-25 W 7.6, [employer] 4.34, CRP 3.18 Follow up; 1 week labs and UC Rosa Armentas 03/13/2025 Abscess of prostate (ICD-10 - N41.2) 1. 44 yo white male with a history of recurrent UTI's, T2DM, nephropathy, neuropathy, and cigarette smoker 2. Admission 02-07-25 with Prostatic abscess, and renal failure -discharged 02-24-25, then was admitted in [facility]. - Requested pt get discharge summary from that admission. 3. Diagnostics; -CT scan 02-07-25; 3 cm abscess noted within the prostate. - CT Scan 02-21-25; The right and left kidneys both appear enlarged and edematous with mild surrounding stranding, unchanged compared to 02/07/2025. Consider pyelonephritis . Some fluid collections along the borders of [...] splenomegaly. 4. 02-08-25; RESECTION PROSTATE TRANSURETHRAL, transurethral resection/unro ofing of the prostatic abscess . 02-08-25 UC E. coli (R: amp, S: fortaz, cipro);02-07-25 Urine culture; E coli (R:amp, S: Fortaz, cipro) - 02-23-25 UC Neg at 48 hrs -02-26-25 BC Neg 6. Antibiotics; Day # 03-06-25 Continue Fortaz post-op Day #26 (start date 02-09-25) duration 6 weeks - DC'd Rocephin due to nausea/vomitin g 7. Gastritis, Peptic ulcer disease, improved on Carafate and Protonix. - Pt doing better on this treatment Labs 02-14-25 W 9.3, [employer] 6.31, CRP 9.79 02-23-25 W 7.6, [employer] 4.34, CRP 3.18 03-06-25; W polyethylene combiner. 4.18, CRP 3.45 Follow up; 1 week labs and UC YAYO Coreyed Lea Shirlene 05/06/2025 Iron deficiency anemia (ICD-10 - D50.9) 04/01/2025 Urinary retention (ICD-10 - R33.9) 05/13/2025 Benign prostatic hyperplasia with lower urinary tract symptoms, symptom details unspecified (ICD-10 - N40.1) 05/13/2025 Chronic UTI (ICD-10 - N39.0) 05/20/2025 Cystitis (ICD-10 - N30.90) 05/20/2025 Acute cystitis without hematuria (ICD-10 - N30.00) 05/13/2025 Hypotonic bladder (ICD-10 - N31.2) 04/01/2025 Hematuria, unspecified type (ICD-10 - R31.9) 05/06/2025 Hyperphosphatemia (ICD-10 - E83.39) 03/13/2025 Renal failure, unspecified chronicity (ICD-10 - N19) 1. 44 yo white male with a history of recurrent UTI's, T2DM, nephropathy, neuropathy, and cigarette smoker 2. Admission 02-07-25 with Prostatic abscess, and renal failure -discharged 02-24-25, then was admitted in [facility]. - Requested pt get discharge summary from that admission. 3. Diagnostics; -CT scan 02-07-25; 3 cm abscess noted within the prostate. - CT Scan 02-21-25; The right and left kidneys both appear enlarged and edematous with mild surrounding stranding, unchanged compared to 02/07/2025. Consider pyelonephritis . Some fluid collections along the borders of [...] thickening or inflammation. Stable mild splenomegaly. 4. 5-12-31; RESECTION PROSTATE TRANSURETHRAL, transurethral resection/unro ofing of the prostatic abscess 5. -12-31 UC E. coli (R: amp, S: fortaz, cipro);02-07-25 Urine culture; E coli (R:amp, S: Fortaz, cipro) - 02-23-25 UC Neg at 48 hrs -02-26-25 BC Neg 6. Antibiotics; Day # 33 - 03-06-25 Continue Fortaz post-op Day #26 (start date 02-09-25) duration 6 weeks - DC'd Rocephin due to nausea/vomitin g 7. Gastritis, Peptic ulcer disease, improved on Carafate and Protonix. - Pt doing better on this treatment Labs 02-14-25 W 9.3, [employer] 6.31, CRP 9.79 02-23-25 W 7.6, [employer] 4.34, CRP 3.18 03-06-25; W polyethylene combiner. 4.18, CRP 3.45 Follow up; 1 week [...] failure -discharged 02-24-25, then was admitted in [facility]. - Requested pt get discharge summary from that admission. 3. Diagnostics; -CT scan 02-07-25; 3 cm abscess noted within the prostate. - CT Scan 02-21-25; The right and left kidneys both appear enlarged and edematous with mild surrounding stranding, unchanged compared to 02/07/2025. Consider pyelonephritis . Some fluid collections along the borders of [...] splenomegaly. 4. 02-08-25; RESECTION PROSTATE TRANSURETHRAL, transurethral resection/unro ofing of the prostatic abscess . 02-08-25 UC [...] Pt notified to DC Cipro on 03-25-25 @ 945am 7. Gastritis, Peptic ulcer disease, improved on Carafate and Protonix. - Pt doing better on this treatment Labs 02-14-25 W 9.3, [employer] 6.31, CRP 9.79 02-23-25 W 7.6, [employer] 4.34, CRP 3.18 03-06-25; W 4.9, [employer] 4.18,, CRP 3.45, PSA .12, UM WBC U 378 03-24-25 W 5.0, [employer] 3.13, CRP .66 Follow up; PRN repeat labs Madhavibe Leonora Garber 04/01/2025 Incomplete bladder emptying (ICD-10 - R33.9) 01/27/2025 Uses self-applied continuous glucose monitoring device (ICD-10 - Z97.8) 05/06/2025 Hyperparathyroidism (ICD-10 - E21.3) 05/06/2025 RENNY (acute kidney injury) (ICD-10 - N17.9) 01/27/2025 At risk for hypoglycemia (ICD-10 - Z91.89) 04/01/2025 Unspecified symptoms and signs involving the genitourinary system (ICD-10 - R39.9) 04/01/2025 Other Culture urine. 2 months wtih me ua and pvr. If pvr no improved then schedule cysto. LEO this week and show me. Refer to Dr. Santana. continue follow up with Dr. Mendez 05/13/2025 Other Refer to andrea for chronic UTI complete current cipro. UA and cutlure in 1-2 weeks, nurse visit. See me 6 weeks with UA and PVR. Suspect that he has a mild component of hypotonic bladder secondary to diabetes. Since he is emptying adequately today would not recommend urodynamics. Plan Of Treatment Pending Test Test Name Order Date Basic Metabolic Panel (BMP) 80817 2024 Basic Metabolic Panel (BMP) 07319 2024 Magnesium (B) 58844 05/06/2025 Phosphorus (B) 72352 05/01/2025 Creatinine (U) 58076 05/06/2025 Diagnostic Colonoscopy-36012 12/30/2024 EGD, Upper GI Diagnostic-17895 Future Test Test Name Order Date Basic Metabolic Panel (BMP) 78528 2024 Ferritin 22284 05/06/2025 Hemoglobin 18160 05/06/2025 Iron Binding Capacity Total 58524 2024 Iron Level 64596 05/06/2025 Phosphorus (B) 20223 05/06/2025 Protein (U) Random 20618 05/06/2025 Uric Acid (B) 46105 05/06/2025 Vitamin D Total (B) 80425 05/06/2025 UA Reflex Micro, Reflex Cult 93977, 8101 5, 16418 05/06/2025 PTH Intact 94799 05/06/2025 % Iron Saturation (Fe & TIBC)--84995,835 50 05/06/2025 Next Appt Details Provider Name:Jess Lain sandoval, 06/16/2025 11:20:00 AM, [address] [place] [address] , [address], [place], [address], Provider Name:Jameel freed, 06/24/2025 10:00:00 AM, [address] , [address], [place], [address], Insurance Providers Payer Name Payer Address Payer Phone Subscriber Number Group Number Insured Name Patient Relationship to Insured Coverage Start Date Coverage End Date Web TPA Nguyen [address] [place] [address] [id number] Shanel Martinez Self - patient is the insured [employer] [address] [place] [address] [phone] [id number] Shanel Martinez Self - patient is the insured Medical (General) History Medical History History ICD Code Diabetes with DKA Chicken Pox anemia bladder infections blood transfusion Back Trouble High Blood Pressure Surgical History Surgery Date(Month/Year) vasectomy TURP Hospitalization History Reason Date(Month/Year) ICU for UTI 2024 DKA 2024
--- OUTSIDE RECORDS SUMMARY | 2025-06-04 03:27 | XMS_ITS | Clinical Summary ---
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 Name Role Phone Unavailable Primary Care Provider [...] Encounters Date Type Department Care Team Description 05/27/2025 External Device Data [facility] ABSTRACTION Provider, Abstract 05/27/2025 External Device Data [facility] ABSTRACTION Provider, Abstract 05/14/2025 External Device Data [facility] ABSTRACTION Provider, Abstract 05/06/2025 External Device Data [facility] ABSTRACTION Provider, Abstract 05/06/2025 External Device Data [facility] ABSTRACTION Provider, Abstract 04/08/2025 External Device Data [facility] ABSTRACTION Provider, Abstract 04/01/2025 External Device Data [facility] ABSTRACTION Provider, Abstract 04/01/2025 External Device Data [facility] ABSTRACTION Provider, Abstract 03/26/2025 External Device Data [facility] ABSTRACTION Provider, Abstract 03/25/2025 External Device Data [facility] ABSTRACTION Provider, Abstract 03/25/2025 External Device Data [facility] ABSTRACTION Provider, Abstract 03/25/[address] [facility] Urology- [place] [address] Entrance [address], 3rd [place] [address] Provider, Abstract uorlogy referral appointment 03/07/2025 Results Follow-Up [facility] Gastroenterology- [place] [address] [place] [address] Ruben Turner, DO PATHOLOGY 03/06/2025 Abstract [facility] [address] [place] [address] Provider, Abstract 03/06/2025 Abstract [facility] [address] [place] [address] Provider, Abstract 03/06/2025 Orders Only [facility] [address] [place] [address] Provider, Abstract 03/04/2025 2:40 PM CDT Anesthesia Event [facility] Endoscopy [address] [place] [address] Alejandro Simmons MD 03/04/2025 2:20 PM CDT - 03/04/2025 2:40 PM CDT Surgery [facility] Endoscopy [address] [place] [address] Ruben Turner, DO SMALL BOWEL ENTEROSCOPY 03/04/2025 External Device Data [facility] ABSTRACTION Provider, Abstract 03/04/2025 External Device Data [facility] ABSTRACTION Provider, Abstract 03/04/2025 External Device Data [facility] ABSTRACTION Provider, Abstract 02/27/2025 4:43 PM CDT - 03/05/2025 2:23 PM CDT Hospital Encounter [facility] 3D Medical Telemetry [address] [place] [address] Waqas Torrez MD Melton, Gregory A, DO Ovens, Lisa K, MD Kaur, Harinderjeet, MD Pyelonephritis Discharge Disposition: Home Health Care Svc from Last 3 Months Social History Tobacco [...] Health Maintenance Due Date Last Done Comments HPV VACCINES (1 - Male 3-dos e series) 1996 DIABETES ANNUAL FOOT EXAM 1999 DIABETES ANNUAL RETINAL EXAM 1999 DIABETES MICROALBUMIN ANNUAL SCREEN 1999 LDL CHOLESTEROL ANNUAL 1999 HEPATITIS B VACCINES (1 of 3 - 19+ 3-dose series) 2000 INFLUENZA VACCINE (#1) 2025 DIABETES HBA1C Q 6 MONTHS 08/11/2025 02/08/2025 DTAP/TDAP/TD VACCINES (7 - T d or Tdap) 06/17/2029 06/17/2019, 02/22/2010, 08/12/1998, Additional history exists Abdominal Aortic Aneurysm (A AA) Screening Completed 02/27/2025 Procedures Procedure Name Priority Date/Time Associated Diagnosis [...] POC GLUCOSE Routine 03/04/2025 12:[address] ABDOMEN PELVIS WO CONTRAST Stat 02/27/2025 6:49 PM CDT HEMOGLOBIN A1C Routine 02/08/2025 from Last 3 Months or Most Recently Relevant to Health Maintenance Results * TELEMETRY REPORT (03/06/2025 12:31 AM CDT) us Provider Scanning ECG ORDERABLES Final Result * (ABNORMAL) POC GLUCOSE (03/05/2025 7:51 AM CDT) Only the most recent of9 resultswithin the time period is included. Pathologist [facility] GLUCOSE POC 190(H) 74 - 99 mg/dL 03/05/2025 7:[address] [facility] SPECIMEN SOURCE, GLUCOSE POC Capillary 03/05/2025 7:[address] [facility] Blood, whole 03/05/2025 7:51 AM CDT 03/05/2025 8:05 AM CDT Antwna De La Cruz MD POINT OF CARE TESTING Final Result [facility] CLIA # [id number] [address] [place] [address] * (ABNORMAL) CBC WITH DIFFERENTIAL (03/05/2025 5:58 AM CDT) Only the most recent of2 resultswithin the time period is included. WBC 4.8 4.5 - 11.0 K/uL 03/05/2025 6:[address] [facility] RBC 3.54(L) 4.60 - 6.20 M/uL 03/05/2025 6:[address] [facility] HEMOGLOBIN 9.1(L) 14.0 - 18.0 g/dL 03/05/2025 6:39 AM [facility] HEMATOCRIT 27.4(L) 41.0 - 53.0 % 03/05/2025 6:39 AM [facility] MCV 77.4(L) 84.0 - 103.0 fL 03/05/2025 6:39 AM [facility] MCH 25.7(L) 27.0 - 34.0 pg 03/05/2025 6:39 AM [facility] MCHC 33.2 30.0 - 35.0 g/dL 03/05/2025 6:39 AM [facility] PLATELETS 168 140 - 440 K/uL 03/05/2025 6:39 AM [facility] MPV 10.4 8.9 - 12.8 fL 03/05/2025 6:39 AM [facility] RDW 17.1(H) 11.0 - 14.5 % 03/05/2025 6:39 AM [facility] RDW-STDEV 48.6 37.0 - 54.0 fL 03/05/2025 6:39 AM [facility] NEUTROPHILS 59 42 - 75 % 03/05/2025 6:39 AM [facility] LYMPHOCYTES 21(L) 24 - 44 % 03/05/2025 6:39 AM [facility] MONOCYTES 9 2 - 10 % 03/05/2025 6:39 AM [facility] EOSINOPHILS 11(H) 0 - 7 % 03/05/2025 6:39 AM [facility] BASOPHILS 1 0 - 1 % 03/05/2025 6:39 AM [facility] IMMATURE GRANULOCYTES 1 0 - 2 % 03/05/2025 6:39 AM [facility] NEUTROPHIL ABSOLUTE 2.84 2.00 - 8.00 K/uL 03/05/2025 6:39 AM [facility] LYMPHOCYTE ABSOLUTE 1.00(L) 1.20 - 4.00 K/uL 03/05/2025 6:[address] [facility] MONOCYTE ABSOLUTE 0.41 0.10 - 0.60 K/uL 03/05/2025 6:[address] [facility] EOSINOPHIL ABSOLUTE 0.52 0.00 - 0.70 K/uL 03/05/2025 6:[address] [facility] BASOPHILS ABSOLUTE 0.03 0.00 - 0.20 K/uL 03/05/2025 6:[address] [facility] IMMATURE GRANULOCYTES ABSOLUTE 0.04 0.00 - 0.10 K/uL 03/05/2025 6:[address] [facility] SMEAR REVIEWED: NA - Not Applicable 03/05/2025 6:39 AM [facility] Blood Venipuncture / Unknown 03/05/2025 5:58 AM CDT 03/05/2025 6:33 AM CDT us Ruben Turner DO HEMATOLOGY ORDERABLES Final R esult [facility] CLIA # [id number] [address] [place] [id number] * (ABNORMAL) RENAL FUNCTION PANEL (03/05/2025 5:58 AM CDT) Only the most recent of2 resultswithin the time period is included. SODIUM 128(L) 136 - 145 mmol/L 03/05/2025 7:[address] [facility] POTASSIUM 4.3 3.5 - 5.1 mmol/L 03/05/2025 7:[address] [facility] CHLORIDE 94(L) 98 - 107 mmol/L 03/05/2025 7:[address] [facility] CO2 20(L) 22 - 29 mmol/L 03/05/2025 7:[address] [facility] CALCIUM 9.2 8.6 - 10.0 mg/dL 03/05/2025 7:[address] [facility] BUN 53(H) 6 - 20 mg/dL 03/05/2025 7:[address] [facility] CREATININE 4.12(H) 0.67 - 1.17 mg/dL 03/05/2025 7:[address] [facility] GLUCOSE 182(H) 74 - 99 mg/dL 03/05/2025 7:[address] [facility] ALBUMIN 3.4(L) 3.5 - 5.2 g/dL 03/05/2025 7:[address] [facility] PHOSPHORUS 4.1 2.5 - 4.5 mg/dL 03/05/2025 7:[address] [facility] GFR 18(L) >=60 mL/min/1. 73 sq meter 03/05/2025 7:[address] [facility] Comment:eGFR calculated with 2020 CKD-EPI equation. Vegetarian diet, extremely high or low muscle mass, and may affect results. Cystatin C with Glomerular Filtration Rate is a suitable alternative for these patients. ANION GAP 14 9 - 20 mmol/L 03/05/2025 7:[address] [facility] Blood Venipuncture / Unknown 03/05/2025 5:58 AM CDT 03/05/2025 6:33 AM CDT Ruben Turner DO CHEMISTRY ORDERABLES Final [id number] [address] [place] [id number] * UPPER ENDOSCOPY REPORT (03/04/2025 3:08 PM CDT) Narrative Procedure Note Ruben Turner DO - 03/04/2025 3:08 PM CDT [facility] GI Patient Name: Robert Martinez Procedure Date: [...] Withdrawal Time Scope In: Scope Out: [address] [place] Ruben Turner DO GI PROCEDURE ORDERABLES Final Result * PATHOLOGY (03/04/2025 2:48 PM CDT) CASE REPORT Surgical Pathology Report Case: [id number] Authorizing Provider: Ruben Turner DO Collected: 03/04/2025 02:48 PM Ordering Location: [facility] Received: 03/05/2025 06:51 AM Endoscopy Pathologist: Amber Bermudez MD Specimen: Stomach 7:19 AM CDT [facility] LABORATORY SERVICES [facility] FINAL DIAGNOSIS A. Stomach, biopsies - Superficial biopsy of gastric mucosa showing features suggestive of reactive gastropathy - No active gastritis, intestinal metaplasia, dysplasia, or malignancy - Immunohistochemistry for Helicobacter pylori is negative Amber Bermudez MD [id number] 5 7:[address] [facility] at 0719 CDT GROSS DESCRIPTION A. Received in formalin labeled [place] -stomach biopsies rule out H. pylori is a single fragment of hewitt-pink soft tissue, 0.4 cm in greatest dimension. The specimen is submitted entirely in A1. Dania Dos Santos 5 7:[address] [facility] MICROSCOPIC DESCRIPTION Immunohistochemistry for Helicobacter pylori was ordered on block A1 after review of the H&E stained slides based on clinician request to evaluate for infection. 5 7:[address] [facility] OPERATIVE PROCEDURE 1: SMALL BOWEL ENTEROSCOPY 5 7:19 AM [facility] CLINICAL INFORMATION R/o H Pylori 5 7:[address] [facility] COMMENT The [employer] voice-activated dictation system may have been used [...] determined by the Diagnostic Immunohistochemistry Laboratory of [facility] in compliance with CLIA'88 regulations. Some of these tests rely on the use of analyte specific reagents and are subject to specific labeling requirements by the FDA. All controls show appropriate reactivity. This testing was developed by the Diagnostic Immunohistochemistry Laboratory of [facility]. It has not been cleared or approved by the FDA. The FDA has determined that such clearance or approval is not necessary. 7:19 AM [facility] Tissue ENTIRE STOMACH / Unknown Collection / Unknown 03/04/2025 2:48 PM CDT 03/05/2025 6:51 AM CDT Comment:R/o H Pylori Ruben Turner DO PATHOLOGY/CYTOLOGY ORDERABLES Final Result Performing Organization Address [facility] Co de Phone Number [facility] CLIA # [id number] [address] [address] * (ABNORMAL) PROTIME-INR (03/04/2025 1:30 AM CDT) PROTIME 17.1(H) 12.7 - 14.9 Seconds 03/04/2025 2:21 AM CDT [facility] LABOR[facility]ORY [facility] INR 1.3(H) 0.8 - 1.2 03/04/2025 2:21 AM CDT [facility] Blood Venipuncture / Unknown 03/04/2025 1:30 AM CDT 03/04/2025 2:04 AM CDT Narrative [facility] - 03/04/2025 2:21 AM CDT Expected Values for INR: DVT/PE Goal INR 2.5; range 2.0 - 3.0 Valve Replacement Tissue Goal INR 2.5; range 2.0 - 3.0 Valve Replacement Mechanical Goal INR 3.0; range 2.5 - 3.5 POST-WV Goal INR 2.5; range 2.0 - 3.0 or Goal INR 3.0; range 2.5 - 3.5 Atrial Fibrillation Goal INR 2.5; range 2.0 - 3.0 Ischemic Stroke Goal INR 2.5; range 2.0 - 3.0 us Aurora Cabrales CONTRACTING OFFICER HEMATOLOGY ORDERABLES Final Resu lt Performing Organization Address City/[facility]/ZIP Co de Phone Number [facility] CLIA # [id number] [id number] [place] [address] * MAGNESIUM LEVEL (03/04/2025 1:30 AM CDT) MAGNESIUM 2.3 1.6 - 2.6 mg/dL 03/04/2025 2:[address] [facility] Blood Venipuncture / Unknown 03/04/2025 1:30 AM CDT 03/04/2025 2:05 AM CDT us Racheal Orozco MD CHEMISTRY ORDERABLES Final Resul t [facility] CLIA # [id number] [address] [place] [address] [place] [address] * CT ABDOMEN PELVIS WO CONTRAST (02/27/2025 [...] esophagus. 5. Splenomegaly. 6. Trace pericardial effusion. us Johnnie CASTREJON CT ORDERABLES Final Result * HEMOGLOBIN A1C (02/08/2025) ABSTRACTED HGB A1C 9.4 % Blood 02/08/2025 us Abstract Provider CHEMISTRY ORDERABLES Final Res ult from Last 3 Months or Most Recently Relevant to Health Maintenance Insurance [address] [place] [address] RX [employer] (INTERNAL) [facility] [employer] * Guarantor: [employer] J (C) Account Type Relation to Patient Date of Phone Billing Address Corporate Other DEFAULT ADDRESS [address] [employer] Advance Directives For more information, please contact: [phone] * Full Code (Latest Code Status on File) Date Activated Date Inactivated Comments 02/27/2025 11:34 PM 03/05/2025 4:34 PM
[2025-06-04] MEDS: ondansetron 2 mg/ML SDV 2 mL 4 MG IVP (03:38)
[2025-06-04] MEDS: morphine 4 mg/mL SDV 1 mL 8 MG IVP (03:38)
[2025-06-04 04:07] LABS: Glucose Urine UA 2+ (Normal); Nitrate Urine Negative (Negative); Specific Gravity, Urine 1.010 (1.005-1.030)
[2025-06-04 04:11] LABS: Add Urine Microscopic? YES
[2025-06-04 04:21] LABS: Alanine Aminotransferase 14 U/L (0-41); Albumin Level 4.1 g/dL (3.5-5.2); Alkaline Phosphatase 89 U/L (40-130); Anion Gap 19.3 (5-19); Aspartate Amino Transferase 13 U/L (0-40); Blood Urea Nitrogen 56 mg/dL (6-20); Calcium 9.3 mg/dL (8.5-10.5); Carbon Dioxide 15 mmol/L (22-29); Chloride 108 mmol/L (98-107); Creatinine Clr Calc Pharmacy 24.8165; Globulin 4.0 g/dL (1.3-4.6); Glucose 132 mg/dL (65-115); Lipase 283 U/L (13-60); Osmolality Calculated 303 mOsm/kg (285-295); Potassium 4.3 mmol/L (3.5-5.1); Sodium 138 mmol/L (136-145); Total Protein 8.1 g/dL (6.6-8.7)
[2025-06-04 05:01] LABS: Hematocrit 31.1 % (37-53); Hemoglobin 10.10 g/dL (11.27-16.99); Mean Corpuscular HGB Conc 32.5 g/dL (30-55); Mean Corpuscular Hemoglobin 26.4 pg (27-33); Mean Corpuscular Volume 81.2 fl (82-101); Nucleated Red Blood Cells % 0 %; Platelet Count 150 10^3/cmm (157-399); Red Blood Count 3.83 10^6/uL (3.85-5.65); White Blood Count 7.28 10^3/uL (3.29-11.43)
--- NOTE | 2025-06-04 05:42 | W.ED.ABDPA2 ---
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 Pain is bilateral but worse on the right, rated 9/10 and described as the worst he has experienced. He noticed red urine last night. He feels ?almost febrile? but has not measured a temperature. Mild nausea present. No known abdominal trauma. He denies current dysuria but is unsure about abdominal tenderness. Glucose readings have been ?really good,? and he denies polydipsia, polyuria, or other signs of DKA. Related Data Home Medications ?Medication ?Instructions ?Recorded ?Confirmed ceftriaxone 2 gram intravenous 2 g IV DAILY 02/19/25 05/22/25 solution ezetimibe 10 mg tablet (Zetia) 10 mg PO DAILY 02/19/25 05/22/25 glucagon 1 mg/0.2 mL subcutaneous 1 mg SUBCUT PRN PRN low blood sugar 02/19/25 05/22/25 syringe ([employer] PFS 2-Pack) insulin aspart U-100 100 unit/mL See Rx Instructions .Route .COMPLEX 02/19/25 05/22/25 (3 mL) subcutaneous pen insulin glargine 100 unit/mL (3 22 unit SUBCUT DAILY 02/19/25 05/22/25 mL) subcutaneous pen (Lantus Solostar U-100 Insulin) metformin 500 mg tablet 500 mg PO BID 02/19/25 05/22/25 metoclopramide HCl 5 mg tablet 5 mg PO TID PRN Nausea And Vomiting 02/19/25 05/22/25 pantoprazole 40 mg tablet,delayed 40 mg PO QAM 02/19/25 05/22/25 release ferrous gluconate 324 mg (38 mg 324 mg PO BID 03/31/25 05/22/25 iron) tablet ondansetron HCl 8 mg tablet 8 mg PO Q8H PRN 03/31/25 05/22/25 rosuvastatin 40 mg tablet 40 mg PO DAILY 03/31/25 05/22/25 sucralfate 1 gram tablet 1 g PO BID 03/31/25 05/22/25 Previous Rx's ?Medication ?Instructions ?Recorded prochlorperazine maleate 10 mg 10 mg PO Q8H PRN nausea and 02/19/25 tablet (Compazine) vomiting #20 tabs oxycodone-acetaminophen 5 mg-325 1 tab PO Q8H PRN pain #10 tabs 06/04/25 mg tablet (Percocet) Allergies Allergy/AdvReac Type Severity Reaction Status Date / Time No Known Allergies Allergy Verified 06/04/25 03:46 PFSH ED PFSH: Social History Smoking and tobacco/nicotine status: current some day tobacco/nicotine user (vape) Alcohol intake: never Physical Exam Const: COMMON NORMALS: no acute distress, patient oriented x3 and alert HENMT: COMMON NORMALS: normocephalic and atraumatic HEAD & SCALP: normocephalic and atraumatic Eye: COMMON NORMALS: Equal, round and reactive pupils present, EOMs intact bilaterally and no scleral icterus PUPIL: Yes Equal, round and reactive pupils present Resp: COMMON NORMALS: normal respiratory effort and No retractions Cardio: COMMON NORMALS: regular rate, regular rhythm and No murmurs present (Cardio) RATE: regular rate RHYTHM: regular rhythm GI: COMMON NORMALS: Normal to inspection, nondistended, normoactive bowel sounds present, Soft to palpation and non-tender PALPATION: Yes Soft to palpation OTHER: flank pain not reproducible with palpation Neuro: COMMON NORMALS: patient oriented x3 SENSORIUM/ORIENTATION: Yes alert Skin: COMMON NORMALS: no rashes or lesions noted GENERAL SKIN EXAM: no rashes or lesions noted Course Vital Signs: Vital signs: Vital Signs Temperature 97.7 F 06/04/25 03:42 Pulse Rate 88 06/04/25 05:30 Respiratory Rate 20 H 06/04/25 03:42 Blood Pressure 150/98 06/04/25 05:30 Pulse Oximetry 99 06/04/25 05:30 Oxygen Delivery Me thod Room Air 06/04/25 03:45 MDM - Abdominal Pain Medical Decision Making Patient with diabetes mellitus and prior urologic infections presents with abrupt severe bilateral flank pain, right-sided predominance, hematuria, and nausea without current signs of DKA. Borderline tachycardia is the only documented vital abnormality; abdomen is soft and non-peritoneal with flank tenderness not reproducible on exam. Differential diagnosis includes obstructive urolithiasis versus acute pyelonephritis/UTI relapse; renal colic is favored by hematuria and abrupt pain, while infection remains possible given history of abscess and subjective fever. Plan: IV access, aggressive analgesia with morphine, antiemetic therapy, bloodwork including CBC, BMP, lactate, and cultures, urinalysis with culture, and abdominal/pelvic CT scan; IV fluids as needed. CT scan shows mild hydronephrosis and hydroureter on the right consistent with recently passed stone. This is consistent with his symptoms which are much better now but initially brought him to tears and caused him to have nausea and excruciating pain. No other acute findings seen on CT or labs. He will be discharged in stable and improved condition. Lab Data 06/04/25 04:50 06/04/25 03:54 Labs/Radiology: Radiology Impressions Abdomen/Pelvis CT 06/04/25 03:26 IMPRESSION: 1. Mild right hydronephrosis. No calcified ureteral stone. Findings may be due to recently passed stone. Superimposed pyelonephritis/pyelitis not excluded given the presence of mild stranding. 2. Mild bladder wall thickening. Correlate with urinalysis. COMMENTS: Consistent with the [employer]'s Incidental Findings Committee white paper (J Am Chuy Radiol 2018): Any incidental renal lesion less than 1 cm or classified as too small to characterize, or any incidental cystic renal lesion characterized as simple-appearing, is likely benign. No follow-up imaging is recommended for these lesions per consensus recommendations based on imaging criteria. Laboratory Results WBC 7.28 10^3/uL (3.29-11.43) 06/04/25 04:50 RBC 3.83 10^6/uL (3.85-5.65) L 06/04/25 04:50 Hgb 10.10 g/dL (11.27-16.99) L 06/04/25 04:50 Hct 31.1 % (37-53) L 06/04/25 04:50 MCV 81.2 fl (82-101) L 06/04/25 04:50 MCH 26.4 pg (27-33) L 06/04/25 04:50 MCHC 32.5 g/dL (30-55) 06/04/25 04:50 RDW 15.0 % (12.1-15.1) 06/04/25 04:50 Plt Count 150 10^3/cmm (157-399) L 06/04/25 04:50 MPV 9.7 fL (7.4-10.4) 06/04/25 04:50 Neut % (Auto) 74.7 % 06/04/25 04:50 Lymph % (Auto) 16.9 % 06/04/25 04:50 [place] % (Auto) 4.3 % 06/04/25 04:50 Eos % (Auto) 3.4 % 06/04/25 04:50 Baso % (Auto) 0.4 % 06/04/25 04:50 Neut # (Auto) 5.44 10^3/uL (1.8-7.7) 06/04/25 04:50 Lymph # (Auto) 1.2 10^3/uL (0.8-4.8) 06/04/25 04:50 [place] # (Auto) 0.3 10^3/uL (0.2-0.9) 06/04/25 04:50 Eos # (Auto) 0.3 10^3/uL (0.0-0.8) 06/04/25 04:50 Baso # (Auto) 0.0 10^3/uL (0.0-0.1) 06/04/25 04:50 Nucleated RBC % (auto) 0 % 06/04/25 04:50 Nucleated RBCs # 0.0 /100WBC 06/04/25 04:50 Sodium 138 mmol/L (136-145) 06/04/25 03:54 Potassium 4.3 mmol/L (3.5-5.1) 06/04/25 03:54 Chloride 108 mmol/L (98-107) H 06/04/25 03:54 Carbon Dioxide 15 mmol/L (22-29) L 06/04/25 03:54 Anion Gap 19.3 (5-19) H 06/04/25 03:54 BUN 56 mg/dL (6-20) H 06/04/25 03:54 Creatinine 4.2 mg/dL (0.7-1.2) H 06/04/25 03:54 GFR Calculation 15.6 mL/min (90-130) L 06/04/25 03:54 Glucose 132 mg/dL (65-115) H 06/04/25 03:54 Calculated Osmolality 303 mOsm/kg (285-295) H 06/04/25 03:54 Calcium 9.3 mg/dL (8.5-10.5) 06/04/25 03:54 Total Bilirubin 0.2 mg/dL (0.15-1.2) 06/04/25 03:54 AST 13 U/L (0-40) 06/04/25 03:54 ALT 14 U/L (0-41) 06/04/25 03:54 Alkaline Phosphatase 89 U/L (40-130) 06/04/25 03:54 Total Protein 8.1 g/dL (6.6-8.7) 06/04/25 03:54 Albumin 4.1 g/dL (3.5-5.2) 06/04/25 03:54 Globulin 4.0 g/dL (1.3-4.6) 06/04/25 03:54 Lipase 283 U/L (13-60) H 06/04/25 03:54 Urine Color Red (Yellow) A 06/04/25 03:40 Urine Appearance Clear (CLEAR) 06/04/25 03:40 Urine pH 5.5 (5-7) 06/04/25 03:40 Ur Specific [place] 1.010 (1.005-1.030) 06/04/25 03:40 Urine Protein 2+ (Negative) A 06/04/25 03:40 Urine Glucose (UA) 2+ (Normal) H 06/04/25 03:40 Urine Ketones Negative (Negative) 06/04/25 03:40 Urine Blood 3+ (Negative) A 06/04/25 03:40 Urine Nitrate Negative (Negative) 06/04/25 03:40 Urine Bilirubin Negative (Negative) 06/04/25 03:40 Urine Urobilinogen 0.2 mg/dL (Negative) 06/04/25 03:40 Ur Leukocyte Esterase 2+ (Negative) A 06/04/25 03:40 Urine RBC >100 /hpf (0-2) H 06/04/25 03:40 Urine WBC 51-100 /hpf (0-5) H 06/04/25 03:40 Ur Squamous Epith Cells 0-5 /hpf (0-5) 06/04/25 03:40 Amorphous Sediment Not Reportable 06/04/25 03:40 Urine Bacteria None seen /hpf (NONE) 06/04/25 03:40 Hyaline Casts 0.40 /lpf 06/04/25 03:40 All radiology interpretation(s) finalized by discharge Discharge Plan Discharge Patient Disposition: Home Clinical Impression: Acute flank pain Condition: Stable Prescriptions: New oxycodone-acetaminophen [Percocet] 5-325 mg tablet 1 tab PO Q8H PRN (Reason: pain) Qty: 10 0RF No Action ondansetron HCl 8 mg tablet 8 mg PO Q8H PRN sucralfate 1 gram tablet 1 g PO BID rosuvastatin 40 mg tablet 40 mg PO DAILY ferrous gluconate 324 mg (38 mg iron) tablet 324 mg PO BID metformin 500 mg tablet 500 mg PO BID ceftriaxone 2 gram Recon Soln 2 g IV DAILY metoclopramide HCl 5 mg tablet 5 mg PO TID PRN (Reason: Nausea And Vomiting) pantoprazole 40 mg tablet,delayed release (DR/EC) 40 mg PO QAM ezetimibe [Zetia] 10 mg Tablet 10 mg PO DAILY insulin aspart U-100 100 unit/mL (3 mL) insulin pen See Rx Instructions .ROUTE .COMPLEX Rx Instructions: Inject subcutaneously per sliding scale 3 times daily before meals. insulin glargine [Lantus Solostar U-100 Insulin] 100 unit/mL (3 mL) insulin pen 22 unit SUBCUT DAILY [employer] PFS 2-Pack Syringe 1 mg/0.2 mL syringe 1 mg SUBCUT PRN PRN (Reason: low blood sugar) prochlorperazine maleate [Compazine] 10 mg tablet 10 mg PO Q8H PRN (Reason: nausea and vomiting) Qty: 20 0RF Discharge Orders: Discharge ED (Routine); Ordered 06/04/25 Ordered By: Eddie Smith Referrals: Sil House MD [Primary Care Provider, Family Practice] Discharge Diet: Advance as tolerated Discharge Activity: Increase activity as tolerated Patient Instructions: Ureteral Stones (ED), Patient Portal & Meka Instructions Activity Restrictions/Additional Instructions: CT scan shows mild hydronephrosis and hydroureter consistent with recently passed kidney stone which typically causes blood in the urine as well. Majority of the pain should be passed now as stone is not visualized in the ureter. Print Language: Maori Coding Level of Care Code ED Organisation And Methods Analyst for Jasvir Fwd
== END 2025-06-04 06:01 | disposition home or self-care (01) ==
PROVIDERS: Emergency Provider Student in an Organized Health Care Education/Training Program; PCP Family Medicine
DX: R10.9 Unspecified abdominal pain (principal); Z79.4 Long term (current) use of insulin; F17.290 Nicotine dependence, other tobacco product, uncomplicated; E11.9 Type 2 diabetes mellitus without complications
CPT/HCPCS: 36415; 74176; 80053; 81001; 83690; 85025; 87086; 96374; 96375; 99285; J2270; J2405; J7030

== ENCOUNTER 2025-06-27 11:00 | Oncology outpatient (recurring) (ONCR) | payer OTHER, SELFPAY ==
[2025-06-11 13:15] LABS: Protein/Creatinine Ratio 0.425 (<0.100); Protein/Creatinine Ratio 425 mg/g creat (<100)
[2025-06-12 14:13] LABS: Hematocrit 31.0 % (37-53); Hemoglobin 10.00 g/dL (11.27-16.99); Mean Corpuscular HGB Conc 32.3 g/dL (30-55); Mean Corpuscular Hemoglobin 26.5 pg (27-33); Mean Corpuscular Volume 82.0 fl (82-101); Nucleated Red Blood Cells % 0 %; Platelet Count 171 10^3/cmm (157-399); Red Blood Count 3.78 10^6/uL (3.85-5.65); White Blood Count 4.49 10^3/uL (3.29-11.43)
[2025-06-12 14:33] LABS: Alanine Aminotransferase 14 U/L (0-41); Albumin Level 4.3 g/dL (3.5-5.2); Alkaline Phosphatase 79 U/L (40-130); Anion Gap 18.9 (5-19); Aspartate Amino Transferase 13 U/L (0-40); Blood Urea Nitrogen 62 mg/dL (6-20); Calcium 8.9 mg/dL (8.5-10.5); Carbon Dioxide 19 mmol/L (22-29); Chloride 104 mmol/L (98-107); Creatinine Clr Calc Pharmacy 26.3628; Globulin 3.7 g/dL (1.3-4.6); Glucose 168 mg/dL (65-115); Osmolality Calculated 305 mOsm/kg (285-295); Potassium 4.9 mmol/L (3.5-5.1); Sodium 137 mmol/L (136-145); Total Protein 8.0 g/dL (6.6-8.7)
[2025-06-13 15:09] LABS: ALPHA-1-GLOBULINS 15 %; ALPHA-2-GLOBULINS 18 %; BETA GLOBULINS 21 %; GAMMA GLOBULINS 12 %
--- NOTE | 2025-06-27 11:00 | PETR_ITS ---
PROCEDURE INFORMATION: Exam: PET/CT Whole Body Exam date and time: 06/27/2025 12:27 PM Age: 44 years old Clinical indication: Condition or disease; Primary cancer: Multiple myeloma LABS AND CLINICAL REPORTS: Glucose: 109 mg/dl Treatment strategy for malignancy (PET staging): Initial Staging (PI) TECHNIQUE: Imaging protocol: Following at least four-hour fasting and following the injection of radiopharmaceutical, low dose CT images were obtained. Then, PET images were obtained. Attenuation corrected images were constructed using the CT scan. Fused images of PET and CT were reviewed. The standardized uptake values (SUV) reported below are maximum values within a region of interest, expressed in gm/ml. Exam includes the whole body. SUV normalization method: BodyWeight Radiopharmaceutical: 9.45 mCi F-18 FDG (Fluorodeoxyglucose), IV. Time of imaging post radiopharmaceutical administration: 46 minutes Injection site: right forearm COMPARISON: CT kidney stone [id number] 06/04/2025 3:57 AM FINDINGS: Brain: Visualized brain has normal physiologic uptake. Pharynx: No abnormal uptake. Larynx: No abnormal uptake. Lungs, pleura and trachea: No abnormal uptake. Heart: Normal physiologic uptake. Mediastinal space: No abnormal uptake. Liver: No abnormal uptake. Gallbladder and biliary ducts: No abnormal uptake. Pancreas: No abnormal uptake. Spleen: No abnormal uptake. Adrenal glands: No abnormal uptake. Kidneys and ureters: Normal physiologic uptake. Stomach and bowel: No abnormal uptake. Vasculature: No abnormal uptake. Lymph nodes: No abnormal uptake. No lymphadenopathy in the head, neck, chest, abdomen, pelvis, and extremities. Skeleton: No lytic or sclerotic osseous lesions. No abnormal tracer uptake in the skeleton to suggest active myeloma. Soft tissues: No abnormal uptake in the visualized head, neck, chest, abdomen, pelvis, and extremities. METRICS: Mediastinal blood pool: SUV max = 3.2 Liver uptake: SUV max = 3.3 PET/PET WB melanoma INITIAL [id number] IMPRESSION: No abnormal radiotracer uptake.
== END 2025-07-08 23:59 | disposition home or self-care (01) ==
LOC: ONCMED 11:05
PROVIDERS: Nurse Practitioner Family; PCP Family Medicine; Visit Provider Internal Medicine
DX: Z53.9 Procedure and treatment not carried out, unspecified reason; C90.00 Multiple myeloma not having achieved remission
CPT/HCPCS: 36415; 78816; 80053; 82570; 84166; 85025; 86335; 99213; A9552

== ENCOUNTER 2025-07-03 09:08 | Emergency (ER) | payer OTHER, SELFPAY ==
--- OUTSIDE RECORDS SUMMARY | 2025-06-16 06:20 | XMS_ITS ---
Author Organization [facility] Address [address] [place] [address] Care Team Providers Care Fine Patcher Name Role Phone Sil Gatica MD Primary Care Provider UnavailJess Russ Unavailable [phone] Jameel Schmitt Unavailable [phone] Allergies No Known Allergies REASON FOR VISIT [id number] RENNY Medications Medication SIG (Take, Route, Frequency, Duration) Notes Start Date End Date Status traMADol HCl 50 MG Tablet 1 tablet as needed Orally Once a day Not-Taking Tylenol Extra Strength 500 MG Tablet 1 tablet as needed Orally every 6 hrs Not-Taking Zetia 10 MG Tablet 1 tablet Orally Once a day Not-Taking Ondansetron HCl 4 MG Tablet 1 tablet Orally Once a day Not-Taking Prochlorperazine 10 MG Tablet 1 tablet as needed Orally Three times a day Not-Taking cefTRIAXone Sodium 2 GM Solution Reconstituted as directed Injection Not-Taking metFORMIN HCl 500 MG Tablet 1 tablet with a meal Orally Twice daily Not-Taking NIFEdipine 60 MG Tablet Extended Release as directed Orally Not-Takin g Gvoke HypoPen 2-Pack 1 MG/0.2ML Solution Auto-injector as directed Subcutaneous PRN; Duration: 365 days 50% discount 01/27/2025 01/27/2027 Not-Taking Iron 325 (65 Fe) MG Tablet 1 tablet Orally Twice daily Not-Taking Rosuvastatin Calcium 10 MG Tablet 1 tablet Orally Once a day Active NovoLOG FlexPen 100 UNIT/ML Solution Pen-injector 10 Units with meals Subcutaneous TID Active Protonix 40 MG Tablet Delayed Release 1 tablet Orally Once a day Active Lantus SoloStar 100 UNIT/ML Solution Pen-injector Inject up to 50 Units Subcutaneous Daily; Duration: 30 days 50% discount Active Jardiance 25 MG Tablet 1 tablet Orally Once a day Active Apple Cider Vinegar 250 MG Tablet Chewable as directed Orally Active Carafate 1 GM Tablet 1 tablet on an empty stomach Orally Once daily Active Dexcom Caustic Preparer Kit Active Probiotic - Tablet Chewable as directed Orally Active Ferrous Gluconate 324 (38 Fe) MG Tablet 1 tablet Orally Three times a Week Active Social History Tobacco Use: Social History Observation Description Date Details (start date - stop date) Current Smoker NA - NA Social History Tobacco Use: Social Info Question Answer Notes Tobacco Control (Standard) Tobacco use: Current smoker Additional Findings: Tobacco user e-cigarette Additional Details Category Social Info Options Details Miscellaneous: Marital status: , M arried twice, once Children: 3 biological, 2 living in home : Deployment History: [id number], 2 deploytments Episcopalian: Sabianist 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: [employer]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 Education Masters Degree Section Notes: Denies Caffeine Denies Alcohol Vital Signs Temperature 98.2 degrees Fahrenheit 06/16/20 25 Blood pressure systolic 141 mm Hg 06/16/20 25 Blood pressure diastolic 99 mm Hg 025 Heart Rate 83 /min 06/16/2025 Height 70 in 06/16/2025 Weight 188.49 lbs 06/16/2025 BMI 27.04 kg/m2 06/16/2025 Oximetry 99 % 06/16/2025 Height-cm 177.8 cm 06/16/2025 Weight-kg 85.5 kg 06/16/2025 Encounters Encounter Location Date Provider Diagnosis [facility] [address] [place] [address] [address] [place] [address] 06/16/2025 Jess Hyde Plan Of Treatment Next Appt Details Provider Name:Jameel freed, 09/23/2025 10:00:00 AM, [address], [place], [address], Provider Name:Jess sandoval, 09/29/2025 10:20:00 AM, [address] [place] [address], [address], [place], [address], Provider Name:Saurabh Reyes lourdes, 10/30/2025 01:00:00 PM, [address] [place] [address] Drive, [address], [place], [address], Provider Name:Chang García, 01/05/2026 09:40:00 AM, [address] [place] [address], [address], [place], [address], History and Physical Notes * HPI (History of Present Illness) Category Sub-Category Detail Notes Category Not es Nursing Initial Assessment Lab results: 04/01/2025: UA shows Blood 1+, Protein Trace 03/24/2025: 140, 5.0, 104, 23.7, 67, 3.13, glucose 99, calcium 9.4, albumin 4.5, Hgb 9.0 03/06/2025: 128, 4.8, 96, 22.2, 58, 4.18, glucose 217, hgb 9.6, UA shows Bacteriua 1+NA 02/14/2025: 137, 5.1, 109, 18.9, 44, 6.3, glucose 138, hgb 6.8, 02/13/2025: 136, 5.2, 109, 19.3, 46, 6.30, glucose 123, hgb 7.0, 02/12/2025: 136, 4.3, 107, 20.0, 52, 6.93, glucose 134, Phosphorus 6.1, magnesium 1.9, hgb 7.3, TSAT 10%, Ferritin 1106 01/21/2025: 134, 3.6, 98, 22.9, 37, 2.80, glucose 291, calcium 8.4 12/27/2024: Hgb 13.0 Progress Notes * Robert MARTINEZ RDOB:1980 (44 yo M)Acc No.[id number]:06/16/2025 Patient: Robert King Provider: Kianna Hyde CNP :1980 A ge:44 Y S ex:Male Date:06/16/2025 Address:[address] [place] [address], [address], [place], [id number] Pcp:Sil Gatica MD Check Out:12:04 PM DIRECTOR DECISION SUPPORT Subjective: * Chief Complaints: * [id number] RENNY * HPI: N ursing Initial Assessment: Lab results: 04/01/2025: UA shows Blood 1+, Protein Trace 03/24/2025: 140, 5.0, 104, 23.7, 67, 3.13, glucose 99, calcium 9.4, albumin 4.5, Hgb 9.0 03/06/2025: 128, 4.8, 96, 22.2, 58, 4.18, glucose 217, hgb 9.6, UA shows Bacteriua 1+NA 02/14/2025: 137, 5.1, 109, 18.9, 44, 6.3, glucose 138, hgb 6.8, 02/13/2025: 136, 5.2, 109, 19.3, 46, 6.30, glucose 123, hgb 7.0, 02/12/2025: 136, 4.3, 107, 20.0, 52, 6.93, glucose 134, Phosphorus 6.1, magnesium 1.9, hgb 7.3, TSAT 10%, Ferritin 1106 01/21/2025: 134, 3.6, 98, 22.9, 37, 2.80, glucose 291, calcium 8.4 12/27/2024: Hgb 13.0. * ROS: Hamilton duffy and scanned to chart. * Medical History: Diabetes with DKA Chicken Pox Anemia Bladder infections Blood transfusion Back Trouble High Blood Pressure Kidney stones Anxiety UTI Medical History Verified * Surgical History: vasectomy TURP Prostate surgery Surgical History verified. * Hospitalization/Major Diagno stic Procedure: DKA 2024 ICU for UTI 2024 Hospitalization Verified. * Family History: F ather: 52 yrs, Heart issues, High blood pressure. M other: alive 62 yrs. F amily History Verified.. Great grandmother with [id number] 62. 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 Education: Masters Degree. Children: 3 biological, 2 living in home. Marital status: , twice, once. : Deployment History:[id number], 2 deploytments. Episcopalian: Sabianist. S ocial History Verified. D enies Caffeine Denies Alcohol. * Medications: T akingCarafate 1 GM Tablet 1 tablet on an empty stomach Orally Once daily Ferrous Gluconate 324 (38 Fe) MG Tablet 1 tablet Orally Three times a Week Lantus SoloStar 100 UNIT/ML Solution Pen-injector Inject up to 50 Units Subcutaneous Daily , Notes to Pharmacist: 50% discountNovoLOG FlexPen 100 UNIT/ML Solution Pen-injector 10 Units with meals Subcutaneous TID Protonix 40 MG Tablet Delayed Release 1 tablet Orally Once a day Apple Cider Vinegar 250 MG Tablet Chewable as directed Orally Probiotic - Tablet Chewable as directed Orally Dexcom Caustic Preparer Kit Jardiance 25 MG Tablet 1 tablet Orally Once a day Rosuvastatin Calcium 10 MG Tablet 1 tablet Orally Once a day Taking Carafate 1 GM Tablet 1 tablet on an empty stomach Orally Once daily Taking Ferrous Gluconate 324 (38 Fe) MG Tablet 1 tablet Orally Three times a Week Taking Lantus SoloStar 100 UNIT/ML Solution Pen-injector Inject up to 50 Units Subcutaneous Daily , Notes to Pharmacist: 50% discountTaking NovoLOG FlexPen 100 UNIT/ML Solution Pen-injector 10 Units with meals Subcutaneous TID Taking Protonix 40 MG Tablet Delayed Release 1 tablet Orally Once a day Taking Apple Cider Vinegar 250 MG Tablet Chewable as directed Orally Taking Probiotic - Tablet Chewable as directed Orally Taking Dexcom Caustic Preparer Kit Taking Jardiance 25 MG Tablet 1 tablet Orally Once a day Taking Rosuvastatin Calcium 10 MG Tablet 1 tablet Orally Once a day Not-TakingcefTRIAXone Sodium 2 GM Solution Reconstituted as directed Injection Gvoke HypoPen 2-Pack 1 MG/0.2ML Solution Auto-injector as directed Subcutaneous PRN , stop date 01/27/2027, Notes to Pharmacist: 50% discountIron 325 (65 Fe) MG Tablet 1 tablet Orally Twice daily metFORMIN HCl 500 MG Tablet 1 tablet with a meal Orally Twice daily NIFEdipine 60 MG Tablet Extended Release as directed Orally Ondansetron HCl 4 MG Tablet 1 tablet Orally Once a day Prochlorperazine 10 MG Tablet 1 tablet as needed Orally Three times a day traMADol HCl 50 MG Tablet 1 tablet as needed Orally Once a day Tylenol Extra Strength 500 MG Tablet 1 tablet as needed Orally every 6 hrs Zetia 10 MG Tablet 1 tablet Orally Once a day Medication List reviewed and reconciled with the patientNot-Taking cefTRIAXone Sodium 2 GM Solution Reconstituted as directed Injection Not-Taking Gvoke HypoPen 2-Pack 1 MG/0.2ML Solution Auto-injector as directed Subcutaneous PRN , stop date 01/27/2027, Notes to Pharmacist: 50% discountNot-Taking Iron 325 (65 Fe) MG Tablet 1 tablet Orally Twice daily Not- Taking metFORMIN HCl 500 MG Tablet 1 tablet with a meal Orally Twice daily Not-Taking NIFEdipine 60 MG Tablet Extended Release as directed Orally Not-Taking Ondansetron HCl 4 MG Tablet 1 tablet Orally Once a day Not-Taking Prochlorperazine 10 MG Tablet 1 tablet as needed Orally Three times a day Not-Taking traMADol HCl 50 MG Tablet 1 tablet as needed Orally Once a day Not-Taking Tylenol Extra Strength 500 MG Tablet 1 tablet as needed Orally every 6 hrs Not-Taking Zetia 10 MG Tablet 1 tablet Orally Once a day Medication List reviewed and reconciled with the patient * Allergies: N .K.D.APeeweeyesAllergies Verified. Objective: * Vitals: H t: 70 in, Wt:188.49lbs, Wt-k.5 kg, BMI:27.04Index, Temp:98.2F, BP:141/99mm Hg, HR:83/min, Oxygen sat %:99%, O2 Source: RA, Ht-cm: 177.8 cm. Billing Information: * Procedure Codes: * Electronic signature of Wendy Hyde CNP on 07/03/2025 at 09:19 AM CDT Sign off status: Pending * Provider: Kianna Hyde CNP Date: 06/16/2025 Generated for José Miguel burgess/Horacio/Radha on: 07/03/2025 09:19 AM CDT
--- OUTSIDE RECORDS SUMMARY | 2025-06-30 08:30 | XMS_ITS ---
Author Organization [facility] Address [address] [place] [address] Care Team Providers Care Bean Sorter Name Role Phone Sil Gatica MD Primary Care Provider UnavailJess Russ Unavailable [phone] Jameel Schmitt Unavailable [phone] Saurabh Mendez JR Unavailable [phone] Allergies Allergen (clinical drug ingredient) Drug/Non Drug Allergy documented on EMR Reaction Allergy Type Onset Date Status No Known Drug Allergy Unknown Drug Allergy Active REASON FOR VISIT [id number] 2 week f/u - Chronic UTI Medications Medication SIG (Take, Route, Frequency, Duration) Notes Start Date End Date Status Carafate 1 GM Tablet 1 tablet on an empty stomach Orally Once daily Not-Taking metFORMIN HCl 500 MG Tablet 1 tablet with a meal Orally Twice daily Not-Taking Protonix 40 MG Tablet Delayed Release 1 tablet Orally Once a day Not-Taking Gvoke HypoPen 2-Pack 1 MG/0.2ML Solution Auto-injector as directed Subcutaneous PRN; Duration: 365 days 50% discount 01/27/2025 01/27/2027 Not-Taking Iron 325 (65 Fe) MG Tablet 1 tablet Orally Twice daily Not-Taking Zetia 10 MG Tablet 1 tablet Orally Once a day Active traMADol HCl 50 MG Tablet 1 tablet as needed Orally Once a day Active Tylenol Extra Strength 500 MG Tablet 1 tablet as needed Orally every 6 hrs Active Rosuvastatin Calcium 10 MG Tablet 1 tablet Orally Once a day Active Prochlorperazine 10 MG Tablet 1 tablet as needed Orally Three times a day Active NovoLOG FlexPen 100 UNIT/ML Solution Pen-injector 10 Units with meals Subcutaneous TID Active Ondansetron HCl 4 MG Tablet 1 tablet Orally Once a day Active Lantus SoloStar 100 UNIT/ML Solution Pen-injector Inject up to 50 Units Subcutaneous Daily; Duration: 30 days 50% discount Active NIFEdipine 60 MG Tablet Extended Release as directed Orally Active Probiotic - Tablet Chewable as directed Orally Active cefTRIAXone Sodium 2 GM Solution Reconstituted as directed Injection Active Ferrous Gluconate 324 (38 Fe) MG Tablet 1 tablet Orally Three times a Week Active Jardiance 25 MG Tablet 1 tablet Orally Once a day Active Cipro 500 MG Tablet 1 tablet Orally TIW; Duration: 30 days 06/16/2025 10/14/2025 Active Dexcom Log Feeder Kit Active Apple Cider Vinegar 250 MG Tablet Chewable as directed Orally Active Social History Tobacco Use: Social History Observation Description Date Details (start date - stop date) Current Smoker NA - NA Social History Tobacco Use: Social Info Question Answer Notes Tobacco Control (Standard) Tobacco use: Current smoker Additional Findings: Tobacco user e-cigarette Section Notes: Denies Caffeine Denies Alcohol Vital Signs Temperature 99.0 degrees Fahrenheit 06/30/20 25 Blood pressure systolic 133 mm Hg 06/30/20 25 Blood pressure diastolic 86 mm Hg 025 Heart Rate 100 /min 06/30/2025 Height 70 in 06/30/2025 Weight 191.8 lbs 06/30/2025 BMI 27.52 kg/m2 06/30/2025 Oximetry 100 % 06/30/2025 Height-cm 177.8 cm 06/30/2025 Weight-kg 87.0 kg 06/30/2025 Encounters Encounter Location Date Provider Diagnosis [facility] Internal Medicine & Infectious Disease [address] [place] [id number] 06/30/2025 Saurabh Andrea Abscess of prostate N41.2 and Renal failure, unspecified chronicity N19 Assessments Encounter Date Diagnosis (ICD Code) Assessment Notes Treatment Notes Treatment Clinical Notes Section Notes 06/30/2025 Abscess of prostate (ICD-10 - N41.2) 1. 44 yo white male with a history of recurrent UTI's, T2DM, nephropathy, neuropathy, and cigarette smoker - Prostatic abscess, and renal failure -followed by Dr. Santana (Kidney) 2. Hospitalized in April 2025 for UTI at [facility] (elevated WBC, UC Neg at that time) -advised to get records from [place] -was treated with Cipro 3. Diagnostics; -CT scan 02-07-25; 3 cm abscess noted within the prostate. -CT Scan 02-21-25; The right and left kidneys [...] transurethral resection/unroofi ng of the prostatic abscess 5. Antibiotics; - DC'd Fortaz on 03-24-25 post-op (start date 02-09-25) AET 03-22-25 at 42 days - DC'd Cipro PO 500mg BID (start date 03-24-25) 6.UTI Prophylaxis; -continue Cipro 500mg 1 q Mon, Wed, Fri (start date 06-16-25) Labs 06-16-25 W 4.2, Mold Stripper 4.26, CRP <.50, UC Neg 06-24-25 UM WBC 20 Follow up; 4 months Rosa Garber 06/30/2025 Renal failure, unspecified chronicity (ICD-10 - N19) 1. 44 yo white male with a history of recurrent UTI's, T2DM, nephropathy, neuropathy, and cigarette smoker - Prostatic abscess, and renal failure -followed by Dr. Santana (Kidney) 2. Hospitalized in April 2025 for UTI at [facility] (elevated WBC, UC Neg at that time) -advised to get records from [place] -was treated with Cipro 3. Diagnostics; -CT scan 02-07-25; 3 cm abscess noted within the prostate. -CT Scan 02-21-25; The right and left kidneys [...] transurethral resection/unroofi ng of the prostatic abscess 5. Antibiotics; - DC'd Fortaz on 03-24-25 post-op (start date 02-09-25) AET 03-22-25 at 42 days - DC'd Cipro PO 500mg BID (start date 03-24-25) 6.UTI Prophylaxis; -continue Cipro 500mg 1 q Mon, Wed, Mon (start date 06-16-25) Labs 06-16-25 W 4.2, Mold Stripper 4.26, CRP <.50, UC Neg 06-24-25 UM WBC 20 Follow up; 4 months Rosa Garber Plan Of Treatment Next Appt Details Follow Up: 4 Months, Reason: Provider Name:Jameel Tony y, 09/23/2025 10:00:00 AM, [address], [place], [address], Provider Name:Jess sandoval, 09/29/2025 10:20:00 AM, [address] [place] [address] [address], [place], [address], Provider Name:Saurabh freed, 10/30/2025 01:00:00 PM, [address] [place] [address] [address] [place], [id number], Provider Name:Chang García, 01/05/2026 09:40:00 AM, [address] [place] [address] [address], [place], [id number], History and Physical Notes * HPI (History [...] 03-13-25; fu on abscess 03-24-25;Feeling better today 06-16-25;one UTI since last visit [facility]; Examination Category Sub-Category Detail Notes Category Not es General Examination GENERAL APPEARANCE: alert, w ell hydrated, in no distress HEAD: normocephalic, atrau matic PSYCH: alert, oriented, cog nitive function intact, cooperative with exam, good eye contact, mood/affect full range, speech clear Progress Notes * Robert MARTINEZ RDOB:1980 (44 yo M)Acc No.[id number]:06/30/2025 Progress Notes Patient: Robert King R Provider: Hamilton Mendez MD :1980 A ge:44 Y S ex:Male Date:06/30/2025 Address:[address] [place] [address], [address], [id number] Pcp:Sil Gatica MD Check Out:02:21 PM DIRECTOR CARDIOVASCULAR Subjective: * Chief Complaints: * 6 [id number] 2 week f/u - Chronic UTI * HPI: N ursing [...] 03-13-25; fu on abscess 03-24-25;Feeling better today 06-16-25;one UTI since last visit [facility];. * ROS: G eneral - Multi System: Constitutional D enies, fever, chills, weakness, fatigue, poor appetite, unexplained weight loss. E ar, Nose, Mouth, Throat D enies, ear pain, sore throat, sinus congestion, nasal drainage. C ardiovascular D enies any recent chest pain, palpitations or syncope. R espiratory D enies any shortness of breath, cough, or hemoptysis. G astrointestinal D enies heartburn, constipation, diarrhea, nausea, blood in stools, or abdominal pain. G enitourinary R EPORTS he uses the bathroom every 2 hours, he passed a kidney stone over the weekend, blood in urine. M usculoskeletal D enies any joint pain or swelling, no recent trauma. I ntegumentary?Denies any rashes, bruising, or skin changes. P t wants to get tested for alpha-gal. * Medical History: Diabetes with DKA Chicken [...] F amily History Verified.. Great grandmother with [id number]. * Social History: T obacco Use: T obacco Control (Standard) T obacco use: C urrent smoker A dditional Findings: Tobacco user e -cigarette S ocial History Verified. D enies Caffeine Denies Alcohol. * Medications: T akingApple Cider Vinegar 250 MG Tablet Chewable as directed Orally cefTRIAXone Sodium 2 GM Solution Reconstituted as directed Injection Cipro 500 MG Tablet 1 tablet Orally TIW , stop date 10/14/2025Dexcom Log Feeder Kit Ferrous Gluconate 324 (38 Fe) MG Tablet 1 tablet Orally Three times a Week Jardiance 25 MG Tablet 1 tablet Orally Once a day Lantus SoloStar 100 UNIT/ML Solution Pen-injector Inject up to 50 Units Subcutaneous Daily , Notes to Pharmacist: 50% discountNIFEdipine 60 MG Tablet Extended Release as directed Orally NovoLOG FlexPen 100 UNIT/ML Solution Pen-injector 10 Units with meals Subcutaneous TID Ondansetron HCl 4 MG Tablet 1 tablet Orally Once a day Probiotic - Tablet Chewable as directed Orally Prochlorperazine 10 MG Tablet 1 tablet as needed Orally Three times a day Rosuvastatin Calcium 10 MG Tablet 1 tablet Orally Once a day traMADol HCl 50 MG Tablet 1 tablet as needed Orally Once a day Tylenol Extra Strength 500 MG Tablet 1 tablet as needed Orally every 6 hrs Zetia 10 MG Tablet 1 tablet Orally Once a day Taking Apple Cider Vinegar 250 MG Tablet Chewable as directed Orally Taking cefTRIAXone Sodium 2 GM Solution Reconstituted as directed Injection Taking Cipro 500 MG Tablet 1 tablet Orally TIW , stop date 10/14/2025Taking Dexcom Log Feeder Kit Taking Ferrous Gluconate 324 (38 Fe) MG Tablet 1 tablet Orally Three times a Week Taking Jardiance 25 MG Tablet 1 tablet Orally Once a day Taking Lantus SoloStar 100 UNIT/ML Solution Pen-injector Inject up to 50 Units Subcutaneous Daily , Notes to Pharmacist: 50% discountTaking NIFEdipine 60 MG Tablet Extended Release as directed Orally Taking NovoLOG FlexPen 100 UNIT/ML Solution Pen-injector 10 Units with meals Subcutaneous TID Taking Ondansetron HCl 4 MG Tablet 1 tablet Orally Once a day Taking Probiotic - Tablet Chewable as directed Orally Taking Prochlorperazine 10 MG Tablet 1 tablet as needed Orally Three times a day Taking Rosuvastatin Calcium 10 MG Tablet 1 tablet Orally Once a day Taking traMADol HCl 50 MG Tablet 1 tablet as needed Orally Once a day Taking Tylenol Extra Strength 500 MG Tablet 1 tablet as needed Orally every 6 hrs Taking Zetia 10 MG Tablet 1 tablet Orally Once a day Not-TakingCarafate 1 GM Tablet 1 tablet on an empty stomach Orally Once daily Gvoke HypoPen 2-Pack 1 MG/0.2ML Solution Auto-injector as directed Subcutaneous PRN , stop date 01/27/2027, Notes to Pharmacist: 50% discountIron 325 (65 Fe) MG Tablet 1 tablet Orally Twice daily metFORMIN HCl 500 MG Tablet 1 tablet with a meal Orally Twice daily Protonix 40 MG Tablet Delayed Release 1 tablet Orally Once a day Medication List reviewed and reconciled with the patientNot-Taking Carafate 1 GM Tablet 1 tablet on an empty stomach Orally Once daily Not-Taking Gvoke HypoPen 2-Pack 1 MG/0.2ML Solution Auto-injector as directed Subcutaneous PRN , stop date 01/27/2027, Notes to Pharmacist: 50% discountNot-Taking Iron 325 (65 Fe) MG Tablet 1 tablet Orally Twice daily Not-Taking metFORMIN HCl 500 MG Tablet 1 tablet with a meal Orally Twice daily Not-Taking Protonix 40 MG Tablet Delayed Release 1 tablet Orally Once a day Medication List reviewed and reconciled with the patient * Allergies: N o Known Drug AllergyyesAllergies Verified. Objective: * Vitals: H t: 70 in, Wt:191.8lbs, Wt-k.0 kg, BMI:27.52Index, Temp:99.0F, BP:133/86mm Hg, HR:100/min, Oxygen sat %:100%, Ht-cm: 177.8 cm. * Examination: G eneral Examination: GENERAL APPEARANCE: a lert, well hydrated, in no distress.? HEAD: n ormocephalic, atraumatic. PSYCH: a lert, oriented, cognitive function intact, cooperative with exam, good eye contact, mood/affect full range, speech clear. Assessment: * Assessment: 1. A bscess of prostate - N41.2 (Primary) 2 . R enal failure, unspecified chronicity - N19 1. 44 yo white male with a h istory of recurrent UTI's, T2DM, nephropathy, neuropathy, and cigarette smoker - Prostatic abscess, and renal failure -followed by Dr. Santana (Kidney) 2. Hospitalized in April 2025 for UTI at [facility] (elevated WBC, U C Neg at that time) -advised to get records from [place] -was treated with C ipro 3. Diagnostics; -CT scan 02-07-25; 3 cm abscess noted within the prostate. -CT Scan 02-21-25; The right and left kidneys [...] transurethral resection/unroofing of the prostatic abscess 5. Antibiotics; - DC'd Fortaz on 03-24-25 post-op (start date 02-09-25) AET 03-22-25 at 42 days - DC'd Cipro PO 500mg BID (start date 03-24-25) 6.UTI Prophylaxis; -continue Cipro 500mg 1 q Mon, Wed, Fri (start date 06-16-25) Labs 06-16-25 W 4.2, Mold Stripper 4.26, CRP <.50, UC Neg 06-24-25 UM WBC 20 Follow up; 4 months Rosa Garber Plan: * Procedure Codes: 3 079F DIAST BP 80-89 MM [id number] SYST BP GE 130 - 139MM HG * Follow Up: 4 Months Billing Information: * Visit Code: 77804 Office Visit, Est Pt., Level 3. * Procedure Codes: 3079F DIAST BP 80-89 MM HG. 3075F SYST BP GE 130 - 139MM HG. Care Plan Details* * Electronic signature of Guillermo Mendez JR, MD on 07/03/2025 at 09:19 AM CDT Sign off status: Pending * Provider: Hamilton Mendez MD Date: 0 06/30/2025 Generated for Printi ng/Horacio/Kellenitting on: 0 07/03/2025 09:19 AM CDT
[2025-07-03 09:16] VITALS: BP 220/125; PULSE 78; RESP 16; TEMP 36.8; O2SAT 100; BMI 27.2
--- NOTE | 2025-07-03 09:18 | ED_ITS ---
HPI - Back Pain/Injury 2 General: Chief Complaint: Back Pain/Injury Stated Complaint: Lower back Pain N/V Time Seen by Provider: 07/03/25 09:18 History of Present Illness: 44-year-old male presents to the emergen cy room complaining of low back with some nausea vomiting and right flank pain as well. He says he was recently diagnosed as having a kidney stone although no imaging was done. He has had some mild hematuria denies dysuria urgency or frequency. No fever sweats or chills Associated symptoms: Deny abdominal pain, chills, dysuria, fever(s) or urinary urgency Related Data Home Medications ?Medication ?Instructions ?Recorded ?Confirmed glucagon 1 mg/0.2 mL subcutaneous 1 mg SUBCUT PRN PRN low blood sugar 02/19/25 07/03/25 syringe ([employer] PFS 2-Pack) insulin aspart U-100 100 unit/mL See Rx Instructions . Route .COMPLEX 02/19/25 07/03/25 (3 mL) subcutaneous pen insulin glargine 100 unit/mL (3 22 unit SUBCUT DAILY 0 02/19/25 07/03/25 mL) subcutaneous pen (Lantus Solostar U-100 Insulin) metformin 500 mg tablet 500 mg PO BID 02/19/2507/03 metoclopramide HCl 5 mg tablet 5 mg PO TID PRN Nausea And Vomiting 02/19/25 07/03/25 pantoprazole 40 mg tablet,delayed 40 mg PO QAM 07/03/25 release ferrous gluconate 324 mg (38 mg 324 mg PO BID 03/31/25 07/03/25 iron) tablet ondansetron HCl 8 mg tablet 8 mg PO Q8H PRN Nausea And Vomiting 03/31/25 07/03/25 sucralfate 1 gram tablet 1 g PO BID 03/31/25 07/03/25 ciprofloxacin HCl 500 mg tablet 500 mg PO .3XWEEKLY 07/03/25 Held on 07/03/25. Instructions: Resume on 07/14/25. Hold x 10 days rosuvastatin 10 mg tablet 10 mg PO DAILY 07/03/2506/10 Previous Rx's ?Medication ?Instructions ?Recorded prochlorperazine maleate 10 mg 10 mg PO Q8H PRN nausea and 02/19/25 tablet (Compazine) vomiting #20 tabs oxycodone-acetaminophen 5 mg-325 1 tab PO Q8H PRN pain #10 tabs 06/04/25 mg tablet (Percocet) cefdinir 300 mg capsule 300 mg PO BID 10 days #20 ca ps 07/03/25 hydrocodone 5 mg-acetaminophen 325 1 tab PO Q6H PRN pa in #15 tabs 07/03/25 mg tablet Allergies Allergy/AdvReac Type Severity Reaction Status Date / Time No Known Allergies Allergy Verified 06/12/25 14:00 Review of Systems 2 Const: Denies: fever(s) or chills Card: Denies: chest pain Resp: Denies: dyspnea GI: Denies: abdominal pain : Reports: flank pain (Right); Denies: dysuria, urinary frequency or urinary urgency Musc: Denies: neck pain or back pain Skin/Breast: Denies: rash PFSH ED 2 PFSH: Social History Smoking and tobacco/nicotine status: current some day tobacco/nicotine user (vape) Alcohol intake: never Physical Exam 2 Const: GENERAL APPEARANCE: cooperative ORIENTATION/CONSCIOUSNESS: Yes awake, Yes oriented to person, Yes oriented to place and Yes oriented to time HENMT: COMMON NORMALS: normocephalic, atraumatic and hearing grossly normal bilaterally HEAD & SCALP: normocephalic and atraumatic Resp: COMMON NORMALS: normal respiratory effort, No retractions, No use of accessory muscles and clear to auscultation bilaterally AUSCULTATION: clear to auscultation bilaterally Cardio: COMMON NORMALS: regular rate, regular rhythm and No murmurs present (Cardio) RATE: regular rate RHYTHM: regular rhythm GI: COMMON NORMALS: Soft to palpation and No hepatosplenomegaly present A USCULTATION: Yes normoactive bowel sounds PALPATION: Yes Soft to palpation, No Tenderness to palpation present (GI), No Guarding due to palpation present (GI) and Yes No hepatosplenomegaly present : BLADDER/KIDNEY EXAM: Yes CVA tenderness Back/Pelvis: GENERAL BACK: Yes CVA tenderness CVA tenderness: right Extremity: COMMON NORMALS: normal to inspection, capillary refill normal, no clubbing, cyanosis or edema, no calf tenderness and no pedal edema Neuro: SENSORIUM/ORIENTATION: Yes oriented to person, Yes oriented to place and Yes oriented to time Skin: COMMON NORMALS: no rashes or lesions noted GENERAL SKIN EXAM: no rashes or lesions noted Course 2 Vital Signs: Vital signs: Vital Signs Temperature 98.3 F 07/03/25 09:16 Pulse Rate 95 07/03/25 12:10 Respiratory Rate 16 07/03/25 09:16 Blood Pressure 159/95 07/03/25 12:10 Pulse Oximetry 99 07/03/25 12:10 Oxygen Delivery Me thod Room Air 07/03/25 10:37 MDM - Back Pain/Injury Medical Decision Making No leukocytosis UA shows 50-100 red blood cells per high-power field and 20-50 white blood cells per high-power field. Mild hydronephrosis on the right no sign of obstruction persistent inflammatory stranding around the ureter and kidney consistent with pyelonephritis. Based on the patient's UA findings and presenting symptoms as well as a CT will treat for pyelonephritis started on cefdinir also gave hydrocodone for pain follow-up with primary care. Return if pain not adequately controlled or develops fever. Labs 07/03/25 09:31 07/03/25 09:31 Radiology Impressions Abdomen/Pelvis CT 07/03/25 09:37 IMPRESSION: 1. Mild RIGHT hydronephrosis similar to previous with the RIGHT ureterectasis. Persistent inflammatory stranding and edema about the RIGHT kidney and ureter suspicious for pyelonephritis. No obstructing RIGHT renal or ureteral calculi. 2. Mild persistent inflammatory stranding about the LEFT kidney. 3. Mild diffuse bladder wall thickening suspicious for cystitis. This is also similar to previous. 4. Normal appendix. 5. Small esophageal hiatal hernia. 6. Hepatosplenomegaly. Laboratory Results WBC 4.62 10^3/uL (3.29-11.43) 07/03/25 09:31 RBC 3.92 10^6/uL (3.85-5.65) 07/03/25 09:31 Hgb 10.70 g/dL (11.27-16.99) L 07/03/25 09:31 Hct 31.7 % (37-53) L 07/03/25 09:31 MCV 80.9 fl (82-101) L 07/03/25 09:31 MCH 27.3 pg (27-33) 07/03/25 09: MCHC 33.8 g/dL (30-55) 07/03/25 09: RDW 14.9 % (12.1-15.1) 07/03/25 09: Plt Count 175 10^3/cmm (157-399) 07/03/25 09: MPV 10.2 fL (7.4-10.4) 07/03/25 09: Neut % (Auto) 62.4 % 07/03/25 09: Lymph % (Auto) 28.6 % 07/03/25 09: [place] % (Auto) 5.2 % 07/03/25 09: Eos % (Auto) 3.0 % 07/03/25 09: Baso % (Auto) 0.4 % 07/03/25 09: Neut # (Auto) 2.88 10^3/uL (1.8-7.7) 07/03/25 09: Lymph # (Auto) 1.3 10^3/uL (0.8-4.8) 07/03/25 09: [place] # (Auto) 0.2 10^3/uL (0.2-0.9) 07/03/25 09: Eos # (Auto) 0.1 10^3/uL (0.0-0.8) 07/03/25 09: Baso # (Auto) 0.0 10^3/uL (0.0-0.1) 07/03/25: Nucleated RBC % (auto) 0 % 07/03/25: Nucleated RBCs # 0.0 /100WBC 07/03/25 09: Sodium 138 mmol/L (136-145) 07/03/25 09: Potassium 5.4 mmol/L (3.5-5.1) H 07/03/25 09: Chloride 106 mmol/L (98-107) 07/03/25 09: Carbon Dioxide 19 mmol/L (22-29) L 07/03/25 09: Anion Gap 18.4 (5-19) 07/03/25 09: BUN 61 mg/dL (6-20) H 07/03/25 09: Creatinine 4.5 mg/dL (0.7-1.2) H 07/03/25 09:31 GFR Calculation 14.4 mL/min (90-130) L 07/03/25 09: Glucose 162 mg/dL (65-115) H 07/03/25 09: Calculated Osmolality 307 mOsm/kg (285-295) H 07/03/25 09: Calcium 9.0 mg/dL (8.5-10.5) 07/03/25 09: Total Bilirubin 0.2 mg/dL (0.15-1.2) 07/03/25 09: AST 17 U/L (0-40) 07/03/25 09: ALT 26 U/L (0-41) 07/03/25 09: Alkaline Phosphatase 86 U/L (40-130) 07/03/25 09: Total Protein 7.7 g/dL (6.6-8.7) 07/03/25 09: Albumin 4.5 g/dL (3.5-5.2) 07/03/25 09: Globulin 3.2 g/dL (1.3-4.6) 07/03/25 09: Urine Color Yellow (Yellow) 07/03/25 10:31 Urine Appearance Clear (CLEAR) 07/03/25 10:31 Urine pH 6.5 (5-7) 07/03/25 10:31 Ur Specific [employer] 1.012 (1.005-1.030) 07/03/25 10:31 Urine Protein Trace (Negative) A 07/03/25 10:31 Urine Glucose (UA) 3+ (Normal) H 07/03/25 10:31 Urine Ketones Negative (Negative) 07/03/25 10:31 Urine Blood 3+ (Negative) A 07/03/25 10:31 Urine Nitrate Negative (Negative) 07/03/25 10:31 Urine Bilirubin Negative (Negative) 07/03/25 10:31 Urine Urobilinogen 0.2 mg/dL (Negative) 07/03/25 10:31 Ur Leukocyte Esterase 1+ (Negative) A 07/03/25 10:31 Urine RBC 51-100 /hpf (0-2) H 07/03/25 10:31 Urine WBC 21-50 /hpf (0-5) H 07/03/25 10:31 Ur Squamous Epith Cells 0-5 /hpf (0-5) 07/03/25 10:31 Amorphous Sediment Not Reportable 07/03/25 10:31 Urine Bacteria None seen /hpf (NONE) 07/03/25 10:31 Hyaline Casts 0-4 /lpf H 07/03/25 10:31 All radiology interpretation(s) finalized by discharge Discharge Plan Discharge Patient Disposition: Home Clinical Impression: Pyelonephritis, CKD (chronic kidney disease) Condition: Stable Prescriptions: New cefdinir 300 mg capsule 300 mg PO BID 10 Days Qty: 20 0RF hydrocodone-acetaminophen 5-325 mg tablet 1 tab PO Q6H PRN (Reason: pain) Qty: 15 0RF Held ciprofloxacin HCl 500 mg tablet 500 mg PO .3XWEEKLY Hold Instructions: Resume on 07/14/25. Hold x 10 days No Action ondansetron HCl 8 mg tablet 8 mg PO Q8H PRN (Reason: Nausea And Vomiting) sucralfate 1 gram tablet 1 g PO BID ferrous gluconate 324 mg (38 mg iron) tablet 324 mg PO BID metformin 500 mg tablet 500 mg PO BID metoclopramide HCl 5 mg tablet 5 mg PO TID PRN (Reason: Nausea And Vomiting) pantoprazole 40 mg tablet,delayed release (DR/EC) 40 mg PO QAM insulin aspart U-100 100 unit/mL (3 mL) insulin pen See Rx Instructions .ROUTE .COMPLEX Rx Instructions: Inject subcutaneously per sliding scale 3 times daily before meals. insulin glargine [Lantus Solostar U-100 Insulin] 100 unit/mL (3 mL) insulin pen 22 unit SUBCUT DAILY [employer] PFS 2-Pack Syringe 1 mg/0.2 mL syringe 1 mg SUBCUT PRN PRN (Reason: low blood sugar) prochlorperazine maleate [Compazine] 10 mg tablet 10 mg PO Q8H PRN (Reason: nausea and vomiting) Qty: 20 0RF oxycodone-acetaminophen [Percocet] 5-325 mg tablet 1 tab PO Q8H PRN (Reason: pain) Qty: 10 0RF rosuvastatin 10 mg Tablet 10 mg PO DAILY Discharge Orders: Discharge ED (Routine); Ordered 07/03/25 Ordered By: Odilon Damon Referrals: Sil House MD [Primary Care Provider, Family Practice] Discharge Diet: Usual diet Discharge Activity: Increase activity as tolerated Patient Instructions: Opioid Safety, Pain Management, Patient Portal & Meka Instructions Activity Restrictions/Additional Instructions: [facility]. It is very important that you follow up as instructed or that you return to the Emergency Department should you have concerns or if your condition changes or worsens in any way. Emergency department visits are focused on emergent conditions, in some cases you may require further evaluation on an outpatient basis. You are seen in the emergency room with complaints of low back pain with nausea vomiting CT and your other lab work shows that you have a bladder infection there is no sign of stone obstructing the ureter at this time. Recommend holding the ciprofloxacin you have been taking intermittently and instead taking cefdinir 1 tablet twice a day for 10 days. He also given hydrocodone for pain if you have persistent symptoms uncontrolled pain or develop fever recheck. (Please note that included in your discharge packet is information concerning opioid safety and pain management. This information is given to all patients were discharged from the ER regardless of their discharge diagnosis or the medicines they usually take or are prescribed.) Print Language: Beninese Coding Level of Care Code ED Driller Operator for Jasvir Ramos
--- OUTSIDE RECORDS SUMMARY | 2025-07-03 09:19 | XMS_ITS | Clinical Summary ---
Author Organization [facility] Address [address] [place] [address] Phone Care Team Providers Care Corrections Nurse Name Role Phone Unavailable Primary Care Provider [...] Encounters Date Type Department Care Team Description 07/01/2025 External Device Data [facility] ABSTRACTION Provider, Abstract 07/01/2025 External Device Data [facility]STRACTION Provider, Abstract 06/10/2025 External Device Data [facility] ABSTRACTION Provider, Abstract 05/27/2025 External Device Data [facility] ABSTRACTION Provider, Abstract 05/27/2025 External Device Data [facility] ABSTRACTION Provider, Abstract 05/14/2025 External Device Data [facility] ABSTRACTION Provider, Abstract 05/06/2025 External Device Data [facility] ABSTRACTION Provider, Abstract 05/06/2025 External Device Data [facility] ABSTRACTION Provider, Abstract 04/08/2025 External Device Data [facility] ABSTRACTION Provider, Abstract from Last 3 Months Social History Tobacco [...] of 3 - 19+ 3-dose series) 2000 HPV VACCINES (1 - 3-dose SCD M series) 2008 INFLUENZA VACCINE (#1) 2025 DIABETES HBA1C Q 6 MONTHS 08/11/2025 02/08/2025 DTAP/TDAP/TD VACCINES (7 - T d or Tdap) 06/17/2029 06/17/2019, 02/22/2010, 08/12/1998, Additional history exists Abdominal Aortic Aneurysm (A AA) Screening Completed 02/27/2025 Procedures Procedure Name Priority Date/Time Associated Diagnosis Comments CT ABDOMEN PELVIS WO CONTRAST Stat 02/27/2025 6:49 PM CDT HEMOGLOBIN A1C Routine 02/08/2025 from Last 3 Months or Most Recently Relevant to Health Maintenance Results * CT ABDOMEN PELVIS WO CONTRAST (02/27/2025 [...] Most Recently Relevant to Health Maintenance Insurance [employer] * Guarantor: [facility] [employer]) Account Type Relation to Patient Date of Phone Billing Address Corporate Other DEFAULT ADDRESS [address] [employer] [employer] Advance Directives For more information, please contact: [phone] * Full Code (Latest Code Status on File) Date Activated Date Inactivated Comments 02/27/2025 11:34 PM 03/05/2025 4:34 PM
--- OUTSIDE RECORDS SUMMARY | 2025-07-03 09:19 | XMS_ITS | Patient Health Record ---
Author Organization [facility] Address [address] [place] [address] Care Team Providers Care Extension Service Advisor Name Role Phone Sil Gatica MD Primary Care Provider UnavailJess uRss Unavailable [phone] Jameel Schmitt Unavailable [phone] Chang García Unavailable [phone] Marybel Parry Unavailable [phone] Saurabh Mendez JR Unavailable [phone] Maria Luisa Baez Unavailable [phone] Muna Dubon Unavailable [phone] Nae Love Unavailable [phone] Allergies Allergen (clinical drug ingredient) Drug/Non Drug Allergy documented on EMR Reaction Allergy Type Onset Date Status No Known Drug Allergy Unknown Drug Allergy Active Results Component Value Reference Range Flag Notes CBC w\ Auto Diff [id number] Reviewed date:03/08/2025 08:08:36 AM Interpretation: Performing Lab: [...] 40.0-70.0 % Lymph Auto% 23.6 22.0-44.0 % [place] Auto% 7.4 3.0-7.0 % HI Eos Auto% 8.8 2.0-4.0 % HI Baso Auto% 0.6 0.0-1.0 % Imm Gran% .6 .0-.4 % HI Neutro Abs 2.87 .80-7.70 Absolute Neutrophil Count 2870 NA Lymph Abs 1.15 .10-4.10 [place] Abs .36 .20-1.00 Eos Abs .43 .00-.40 HI Baso Abs .03 .00-.20 Imm Gran Abs .03 .00-.10 NRBC# .00 .00-.20 NRBC% .00 .00-.20 /100 intact WBC's Comprehensive Metabolic Pane l (CMP) 75744 Reviewed date:03/08/2025 08:08:41 AM Interpretation: Performing Lab: Notes/Report: Diagnosis Description: Abscess of prostate Diagnosis Description: Unspecified kidney failure Glucose Serum 217 71-110 MG/DL HI Testing p erformed at [facility], [address] [place] [address] [place] [address]. CLIA ID#: [id number] BUN 58 7-21 MG/DL HI Creat 4.18 .57-1.17 MG/DL HI Use of this assay is not recommended for patients undergoing treatment with phenindione, due to the potential for falsely depressed results. L-dlxskt-w-benzoquin one imine (NAPQI) is a metabolite of [...] 12-78 UNIT/L Osmo Serum,Calculated 289 280-300 MOSM/KG CRP 42044 Reviewed date:03/08/2025 08:08:32 AM Interpretation: Performing Lab: Notes/Report: Diagnosis Description: Abscess of prostate Diagnosis Description: Unspecified kidney failure CRP 3.45 .40-1.00 MG/DL HI Culture Urine [id number] Reviewed date:04/04/2025 11:04:54 AM Interpretation: Performing Lab: Notes/Report: Culture Urine Derek MARTINEZ CHALencho Villasenor Culture Urine t: Culture Urine Culture Urine [facility] [id number] Culture Urine n: Culture Urine Microbiology Culture [...] Culture Urine O1: Culture Urine (Culture Urine 62090) Culture Urine Diagnosis Description: Unspecified symptoms and signs involving the genitourinary system UA Without Micro-[place], [place] - [address] Reviewed date:06/24/2025 10:06:18 AM Interpretation: Performing Lab: Notes/Report: Glucose 1+ Bili 0 Ketones 0 Sp [place] 1.015 Blood 2+ pH 6.0 Protein 0 Urobili 0 Nitrites 0 Leukocytes 1+ US Renal w/bladder-05040 Reviewed date:04/10/2025 03:53:48 PM Interpretation: Performing Lab: Notes/Report: [id number]=iSite CBC w\ Auto Diff [id number] Reviewed date:02/14/2025 07:29:24 AM Interpretation: Performing Lab: [...] HI Lymph Auto% 11.8 22.0-44.0 % LOW [place] Auto% 4.6 3.0-7.0 % Eos Auto% 2.8 2.0-4.0 % Baso Auto% 0.2 0.0-1.0 % Imm Gran% 3.4 .0-.4 % HI Neutro Abs 6.35 .80-7.70 Absolute Neutrophil Count 6350 NA Lymph Abs .97 .10-4.10 [place] Abs .38 .20-1.00 Eos Abs .23 .00-.40 Baso Abs .02 .00-.20 Imm Gran Abs .28 .00-.10 HI NRBC# .00 .00-.20 NRBC% .00 .00-.20 /100 intact WBC's Comprehensive Metabolic Pane l (CMP) 78563 Reviewed date:02/14/2025 07:29:14 AM Interpretation: Performing Lab: Notes/Report: 4421 @ 2014 Glucose Serum 123 71-110 MG/DL HI Testing p erformed at [facility], [address] [place] [address] [place] [address]. CLIA ID#: [id number] BUN 46 7-21 MG/DL HI Creat 6.30 .57-1.17 MG/DL HI R-lblcbf-z-benzoquin one imine (NAPQI) is a metabolite of [...] 12-78 UNIT/L Osmo Serum,Calculated 295 280-300 MOSM/KG CRP 83230 Reviewed date:02/14/2025 07:29:09 AM Interpretation: Performing Lab: Notes/Report: 4421 @ 2013 CRP 12.03 .40-1.00 MG/DL HI CBC w\ Auto Diff 11755 Reviewed date:02/14/2025 07:27:34 AM Interpretation: Performing Lab: Notes/Report: 4421 @ 2013 WBC 9.3 4.5-11.0 X10'3 RBC 2.80 4.50-5.90 [...] HI Lymph Auto% 11.6 22.0-44.0 % LOW [place] Auto% 4.9 3.0-7.0 % Eos Auto% 3.3 2.0-4.0 % Baso Auto% 0.2 0.0-1.0 % Imm Gran% 3.2 .0-.4 % HI Neutro Abs 7.15 .80-7.70 Absolute Neutrophil Count 7150 NA Lymph Abs 1.08 .10-4.10 [place] Abs .46 .20-1.00 Eos Abs .31 .00-.40 Baso Abs .02 .00-.20 Imm Gran Abs .30 .00-.10 HI NRBC# .00 .00-.20 NRBC% .00 .00-.20 /100 intact WBC's CRP 79073 Reviewed date:02/24/2025 08:31:22 AM Interpretation: Performing Lab: Notes/Report: report called 3529 CRP 3.18 .40-1.00 MG/DL HI Add to Specimen in lab--No C PT Reviewed date:04/30/2025 08:35:52 PM Interpretation: Performing Lab: Notes/Report: Add To Specimen In Lab Yes CRP 32151 (Not yet reviewed by provider) Interpretation: Performing Lab: Notes/Report: Diagnosis Description: Abscess of prostate CRP <.50 .40-1.00 MG/DL Microscopic Urine 16889 (Not yet reviewed by provider) Interpretation: Performing Lab: Notes/Report: Diagnosis Description: Abscess of prostate Diagnosis Description: Unspecified kidney failure RBC U 3 NA WBC U 26 0-5 /HPF HI Bacteria None Seen NA Hyaline Casts 1 NA SQ EPI <1 NA Comprehensive Metabolic Pane l (CMP) 03771 (Not yet reviewed by provider) Interpretation: Performing Lab: Notes/Report: Diagnosis Description: Abscess of prostate Glucose Serum 168 71-110 MG/DL HI Testing p erformed at [facility], [address] [place] [address] [place] [address]. CLIA ID#: [id number] BUN 70 7-21 MG/DL HI Creat 4.26 .57-1.17 MG/DL HI N-prejgs-b-benzoquin one imine (NAPQI) is a metabolite of [...] the potential for falsely depressed results. GFR 16.7 NA Calculation pe rformed from GFR calculator provided by the [employer]. Glomerular Filtration rate(GRF) is the best overall index of kidney function. Normal GFR varies according to age,sex, body size, and declines with age. The [employer] recommends using the CKD-EPI Creatinine Equation(2020) to estimate GFR. BUN/Creat Ratio 16.4 12.0-20.0 % Total Protein 7.6 5.8-8.0 G/DL Albumin 4.5 3.2-4.8 G/DL Globulin 3.1 2.3-3.5 G/DL Alb/Glob 1.5 0.8-2.2 Calcium 9.3 8.7-10.4 MG/DL Sodium 139 136-145 MMOL/L Potassium 5.0 3.5-5.1 MMOL/L Chloride 107 98-107 MMOL/L CO2 20.0 20.0-31.0 MMOL/L Anion Gap 17 5-15 HI Alk Phos 81 46-116 Bili Total .2 .3-1.2 MG/DL LOW Use of this assay is not recommended for patients undergoing treatment with eltrombopag due to the potential for falsely elevated results. AST/SGOT 15 15-37 UNIT/L ALT/SGPT 21 12-78 UNIT/L Osmo Serum,Calculated 312 280-300 MOSM/KG HI CBC w\ Auto Diff 79821 (Not yet reviewed by provider) Interpretation: Performing Lab: Notes/Report: Diagnosis Description: Abscess of prostate WBC 4.2 4.5-11.0 X10'3 LOW RBC 3.89 4.50-5.90 X10'6 LOW Hgb 10.5 13.5-17.5 G/DL LOW Hct 31.2 41.0-53.0 % LOW MCV 80.2 80.0-100.0 FL MCH 27.0 27.0-31.0 PG MCHC 33.7 31.0-37.0 G/DL Platelet 195 150-400 X10'3 RDW-SD 46.0 35.0-49.0 FL RDW-CV 15.7 12.2-15.6 % HI MPV 10.4 9.2-12.0 FL Neutro Auto% 47.3 40.0-70.0 % Lymph Auto% 40.5 22.0-44.0 % [place] Auto% 5.8 3.0-7.0 % Eos Auto% 5.5 2.0-4.0 % HI Baso Auto% 0.7 0.0-1.0 % Imm Gran% .2 .0-.4 % Neutro Abs 1.97 .80-7.70 Absolute Neutrophil Count 1970 NA Lymph Abs 1.69 .10-4.10 [place] Abs .24 .20-1.00 Eos Abs .23 .00-.40 Baso Abs .03 .00-.20 Imm Gran Abs .01 .00-.10 NRBC# .00 .00-.20 NRBC% .00 .00-.20 /100 intact WBC's Culture Urine 11431 (Not yet reviewed by provider) Interpretation: Performing Lab: Notes/Report: Culture Urine SHANEL Ruiz R Culture Urine t: Culture Urine Culture Urine Accessio [id number] Culture Urine n: Culture Urine Microbiology Culture Urine PROCEDURE: Culture Urine [O1] Culture Urine SOURCE: Urine BODY SITE: Culture Urine COLLECTED DATE/TIME: 06/16/2025 13:37 CDT RECEIVED DATE/TIME: 06/16/2025 16:46 CDT Culture Urine START DATE/TIME: 06/16/2025 16:46 CDT FREE TEXT SOURCE: Culture Urine FINAL REPORT Culture Urine Final Report [] Culture Urine Verified Date/Time: 06/18/2025 06:00 CDT Culture Urine <10,000 cfu/ml Mixed Superficial [place] Culture Urine Order Comments Culture Urine O1: Culture Urine (Culture Urine [id number]) Culture Urine Diagnosis Description: Abscess of prostate Culture Urine Diagnosis Description: Unspecified kidney failure Culture Urine 84411 Reviewed date:05/23/2025 06:55:17 AM Interpretation: Performing Lab: Notes/Report: Culture Urine SHANEL Ruiz R Culture Urine t: Culture Urine Culture Urine Accessio [id number] Culture Urine n: Culture Urine Microbiology Culture [...] Culture Urine O1: Culture Urine (Culture Urine 24768) Culture Urine Diagnosis Description: Acute cystitis without hematuria UA [place], [place] - [address] Reviewed date:05/20/2025 10:22:04 AM Interpretation: Performing Lab: Notes/Report: Glucose 1+ Bili 0 Ketones 0 Sp [place] 1.010 Blood 3+ pH 6.0 Protein +- Urobili 0 Nitrites 0 Leukocytes 3+ UA Without [place], [place] - [address] Reviewed date:04/01/2025 08:30:44 AM Interpretation: Performing Lab: Notes/Report: Glucose 2+ Bili - Ketones - Sp [place] 1.010 Blood 1+ pH 6.0 Protein +- Urobili - Nitrites - Leukocytes 3+ CRP 14079 Reviewed date:03/26/2025 08:16:31 AM Interpretation: Performing Lab: Notes/Report: Diagnosis Description: Abscess of prostate Diagnosis Description: Unspecified kidney failure CRP .66 .40-1.00 MG/DL Comprehensive Metabolic Pane l (CMP) 77919 Reviewed date:03/26/2025 08:16:44 AM Interpretation: Performing Lab: Notes/Report: Diagnosis Description: Abscess of prostate Diagnosis Description: Unspecified kidney failure Glucose Serum 99 71-110 MG/DL Testing p erformed at [facility], [address] [place] [address] [place] [address]. CLIA ID#: [id number] BUN 67 7-21 MG/DL HI Creat 3.13 .57-1.17 MG/DL HI Use of this assay is not recommended for patients undergoing treatment with phenindione, due to the potential for falsely depressed results. K-noewst-b-benzoquin one imine (NAPQI) is a metabolite of [...] UNIT/L Osmo Serum,Calculated 310 280-300 MOSM/KG HI CBC w\ Auto Diff 21832 Reviewed date:03/26/2025 08:16:37 AM Interpretation: Performing Lab: [...] 40.0-70.0 % Lymph Auto% 38.4 22.0-44.0 % [place] Auto% 5.7 3.0-7.0 % Eos Auto% 7.9 2.0-4.0 % HI Baso Auto% 0.6 0.0-1.0 % Imm Gran% .4 .0-.4 % Neutro Abs 2.33 .80-7.70 Absolute Neutrophil Count 2330 NA Lymph Abs 1.90 .10-4.10 [place] Abs .28 .20-1.00 Eos Abs .39 .00-.40 Baso Abs .03 .00-.20 Imm Gran Abs .02 .00-.10 NRBC# .00 .00-.20 NRBC% .00 .00-.20 /100 intact WBC's Microscopic Urine 78893 Reviewed date:03/08/2025 08:08:02 AM Interpretation: Performing Lab: Notes/Report: Diagnosis Description: Abscess of prostate Diagnosis Description: Unspecified kidney failure RBC U 94 NA WBC U 378 0-5 /HPF HI Bacteria 1+ NA Hyaline Casts 3 NA SQ EPI <1 NA PSA Diagnostic--13942 Reviewed date:03/08/2025 08:07:45 AM Interpretation: Performing Lab: Notes/Report: Diagnosis Description: Abscess of prostate PSA .12 .00-4.00 NG/ML PSA concen trations, regardless of the value, should not be interpreted as definitive evidence for the presence or absence of prostate cancer. Culture Urine 88433 Reviewed date:03/08/2025 08:07:55 AM Interpretation: Performing Lab: Notes/Report: Culture Urine Derek SHANEL MARTINEZ Culture Urine t: Culture Urine Culture Urine Accessio [id number] Culture Urine n: Culture Urine Microbiology Culture [...] Culture Urine O1: Culture Urine (Culture Urine 58083) Culture Urine Diagnosis Description: Abscess of prostate Culture Urine Diagnosis Description: Unspecified kidney failure % Iron Saturation (Fe & TIBC )--91842,36230 Reviewed date:02/12/2025 04:25:31 PM Interpretation: Performing Lab: Notes/Report: 4421 @ 2014 Iron 15 65-175 MCG/DL LOW Per Iron as say instruction for Use(IFU), patients treated with metal-binding drugs (e.g.deferoxamine) may have depressed iron values as chelated iron may not properly react in the iron assay. Testing was performed with this assay method. TIBC 145 250-450 NG/DL LOW % Iron Saturation 10 20-50 % LOW Phosphorus (B) 04006 Reviewed date:02/12/2025 04:25:31 PM Interpretation: Performing Lab: Notes/Report: 4421 @ 2013 Phos 6.1 2.4-5.1 MG/DL HI Magnesium (B) 10703 Reviewed date:02/12/2025 04:25:31 PM Interpretation: Performing Lab: Notes/Report: 4421 @ 2013 Magnesium 1.9 1.8-2.4 MG/DL Calcium Ionized (B) 70988 Reviewed date:02/12/2025 04:25:31 PM Interpretation: Performing Lab: Notes/Report: 4421 @ 2013 Calcium Ionized 1.06 1.09-1.30 MMOL/L LOW Glucometer WBG--13670 Reviewed date:01/21/2025 02:36:40 PM Interpretation: Performing Lab: Notes/Report: Glucometer WBG 269 65-110 MG/DL HI Notify Dr~Asymptomatic~Meter : [id number]~System Dispatcher: [id number] TITUS US Renal w/bladder-81807 Reviewed date:07/02/2025 07:27:20 AM Interpretation: Performing Lab: Notes/Report: See Below For Report US Renal w/bladder To be completed this week or next. Thank you. Read See Below For Report CBC w\o Diff 89803 Reviewed date:05/05/2025 04:51:50 PM Interpretation: Performing Lab: Notes/Report: WBC 6.4 4.5-11.0 X10'3 RBC 2.69 4.50-5.90 X10'6 LOW Hgb 7.1 13.5-17.5 G/DL LOW Hct 21.9 41.0-53.0 % LOW MCV 81.4 80.0-100.0 FL MCH 26.4 27.0-31.0 PG LOW MCHC 32.4 31.0-37.0 G/DL Platelet 344 150-400 X10'3 RDW-SD 40.7 35.0-49.0 FL RDW-CV 13.5 12.2-15.6 % MPV 9.5 9.2-12.0 FL Phosphorus (B) 49556 Reviewed date:05/05/2025 04:51:50 PM Interpretation: Performing Lab: Notes/Report: Phos 4.7 2.4-5.1 MG/DL Magnesium (B) 54567 Reviewed date:05/05/2025 04:51:50 PM Interpretation: Performing Lab: Notes/Report: Magnesium 2.3 1.8-2.4 MG/DL Phosphorus (B) 81176 Reviewed date:06/04/2025 01:33:05 PM Interpretation: Performing Lab: Notes/Report: Phos 5.2 2.4-5.1 MG/DL HI Basic Metabolic Panel (BMP) 28925 Reviewed date:06/04/2025 01:33:05 PM Interpretation: Performing Lab: Notes/Report: Sodium 135 136-145 MMOL/L LOW Potassium 3.8 3.5-5.1 MMOL/L Chloride 106 98-107 MMOL/L CO2 17.4 20.0-31.0 MMOL/L LOW Glucose Serum 142 71-110 MG/DL HI Testing p erformed at [facility], [address] [place] [address] [place] [address]. CLIA ID#: [id number] BUN 67 7-21 MG/DL HI REVIEWED - MONA Y. Creat 5.24 .57-1.17 MG/DL HI Use of this assay is not recommended for patients undergoing treatment with phenindione, due to the potential for falsely depressed results. G-lodfdb-d-benzoquin one imine (NAPQI) is a metabolite of [...] MG/DL Osmo Serum,Calculated 302 280-300 MOSM/KG HI Phosphorus (B) 51044 Reviewed date:04/30/2025 08:31:34 PM Interpretation: Performing Lab: Notes/Report: Phos 5.1 2.4-5.1 MG/DL Magnesium (B) 91999 Reviewed date:04/30/2025 08:31:34 PM Interpretation: Performing Lab: Notes/Report: Magnesium 2.5 1.8-2.4 MG/DL HI Basic Metabolic Panel (BMP) 15426 Reviewed date:04/30/2025 08:35:52 PM Interpretation: Performing Lab: Notes/Report: Sodium 131 136-145 MMOL/L LOW Potassium 3.6 3.5-5.1 MMOL/L Chloride 103 98-107 MMOL/L CO2 12.5 20.0-31.0 MMOL/L LOW Glucose Serum 148 71-110 MG/DL HI Testing p erformed at [facility], [address] [place] [address] Dr. Sirena [place], [place] [address]. CLIA ID#: [id number] BUN 78 7-21 MG/DL HI Delta check no dewey, will monitor Creat 6.13 .57-1.17 MG/DL HI Use of this assay is not recommended for patients undergoing treatment with phenindione, due to the potential for falsely depressed results. V-cfkmab-z-benzoquin one imine (NAPQI) is a metabolite of [...] 8.7-10.4 MG/DL Osmo Serum,Calculated 298 280-300 MOSM/KG % Iron Saturation (Fe & TIBC )--53979,43856 Reviewed date:04/30/2025 08:36:07 PM Interpretation: Performing Lab: Notes/Report: Iron 7 65-175 MCG/DL LOW Per Iron as say instruction for Use(IFU), patients treated with metal-binding drugs (e.g.deferoxamine) may have depressed iron values as chelated iron may not properly react in the iron assay. Testing was performed with this assay method. TIBC 178 250-450 NG/DL LOW % Iron Saturation 4 20-50 % LOW CBC w\o Diff 92483 Reviewed date:04/30/2025 08:36:07 PM Interpretation: Performing Lab: Notes/Report: WBC 9.9 4.5-11.0 X10'3 RBC 2.87 4.50-5.90 X10'6 LOW Hgb 7.7 13.5-17.5 G/DL LOW Hct 23.3 41.0-53.0 % LOW MCV 81.2 80.0-100.0 FL MCH 26.8 27.0-31.0 PG LOW MCHC 33.0 31.0-37.0 G/DL Platelet 267 150-400 X10'3 RDW-SD 40.4 35.0-49.0 FL RDW-CV 13.6 12.2-15.6 % MPV 9.7 9.2-12.0 FL Ferritin 92411 Reviewed date:04/30/2025 08:36:07 PM Interpretation: Performing Lab: Notes/Report: Ferritin 1253 8-388 NG/ML HI Basic Metabolic Panel (BMP) 68119 Reviewed date:04/30/2025 08:36:07 PM Interpretation: Performing Lab: Notes/Report: Sodium 130 136-145 MMOL/L LOW Potassium 3.7 3.5-5.1 MMOL/L Chloride 102 98-107 MMOL/L CO2 13.7 20.0-31.0 MMOL/L LOW Glucose Serum 179 71-110 MG/DL HI Testing p erformed at [address] [place] [address]. CLIA ID#: [id number] BUN 91 7-21 MG/DL HI REPEATED - MONA Y Creat 6.11 .57-1.17 MG/DL HI E-blcgad-n-benzoquin one imine (NAPQI) is a metabolite of [...] LOW Osmo Serum,Calculated 302 280-300 MOSM/KG HI CRP 12748 Reviewed date:02/14/2025 07:27:42 AM Interpretation: Performing Lab: Notes/Report: 4421 @ 2013 CRP 9.79 .40-1.00 MG/DL HI Comprehensive Metabolic Pane l (CMP) 74566 Reviewed date:02/14/2025 07:27:55 AM Interpretation: Performing Lab: Notes/Report: 4421 @ 2013 Glucose Serum 138 71-110 MG/DL HI Testing p erformed at [facility], [address] [place] [address] [place] [address]. CLIA ID#: [id number] BUN 44 7-21 MG/DL HI Creat 6.31 .57-1.17 MG/DL HI E-uzrevz-i-benzoquin one imine (NAPQI) is a metabolite of [...] 12-78 UNIT/L Osmo Serum,Calculated 297 280-300 MOSM/KG Ferritin 72565 Reviewed date:02/12/2025 04:25:31 PM Interpretation: Performing Lab: Notes/Report: 4421 @ 2013 Ferritin 1106 8-388 NG/ML SC Comprehensive Metabolic Pane l (CMP) 46792 Reviewed date:02/13/2025 03:35:54 PM Interpretation: Performing Lab: Notes/Report: 4421 @ 2013 Glucose Serum 134 71-110 MG/DL HI Testing p erformed at [facility], [address] [place] [address] [place] [address]. CLIA ID#: [id number] BUN 52 7-21 MG/DL HI Creat 6.93 .57-1.17 MG/DL HI Use of this assay is not recommended for patients undergoing treatment with phenindione, due to the potential for falsely depressed results. A-vgakge-q-benzoquin one imine (NAPQI) is a metabolite of [...] 298 280-300 MOSM/KG CBC w\ Auto Diff 40372 Reviewed date:02/12/2025 04:25:31 PM Interpretation: Performing Lab: [...] HI Lymph Auto% 12.7 22.0-44.0 % LOW [place] Auto% 6.6 3.0-7.0 % Eos Auto% 3.2 2.0-4.0 % Baso Auto% 0.2 0.0-1.0 % Imm Gran% 2.7 .0-.4 % HI Neutro Abs 6.10 .80-7.70 Absolute Neutrophil Count 6100 NA Lymph Abs 1.04 .10-4.10 [place] Abs .54 .20-1.00 Eos Abs .26 .00-.40 Baso Abs .02 .00-.20 Imm Gran Abs .22 .00-.10 HI NRBC# .00 .00-.20 NRBC% .00 .00-.20 /100 intact WBC's Basic Metabolic Panel (BMP) 86639 Reviewed date:01/30/2025 10:24:37 AM Interpretation: Performing Lab: Notes/Report: in Endoscopy pre procedure area Sodium 134 136-145 MMOL/L LOW Potassium 3.6 3.5-5.1 MMOL/L Chloride 98 98-107 MMOL/L CO2 22.9 20.0-31.0 MMOL/L Glucose Serum 291 71-110 MG/DL HI Testing p erformed at [facility], [address] [place] [address] [place] [address]. CLIA ID#: [id number] BUN 37 7-21 MG/DL HI DELTA NOTED BY TECH Creat 2.80 .57-1.17 MG/DL HI Use of this assay is not recommended for patients undergoing treatment with phenindione, due to the potential for falsely depressed results. H-ewprsc-h-benzoquin one imine (NAPQI) is a metabolite of [...] LOW Osmo Serum,Calculated 297 280-300 MOSM/KG CBC w\o Diff 55804 Reviewed date:12/28/2024 01:56:29 PM Interpretation: Performing Lab: Notes/Report: 1W 2424 WBC 6.8 4.5-11.0 X10'3 RBC 4.83 4.50-5.90 X10'6 Hgb 13.0 13.5-17.5 G/DL LOW Hct 37.1 41.0-53.0 % LOW MCV 76.8 80.0-100.0 FL LOW MCH 26.9 27.0-31.0 PG LOW MCHC 35.0 31.0-37.0 G/DL Platelet 188 150-400 X10'3 RDW-SD 37.6 35.0-49.0 FL RDW-CV 13.3 12.2-15.6 % MPV 10.6 9.2-12.0 FL Microscopic Urine 71659 (Not yet reviewed by provider) Interpretation: Performing Lab: Notes/Report: Diagnosis Description: Hematuria, unspecified RBC U 5 NA WBC U 20 0-5 /HPF HI Bacteria None Seen NA SQ EPI 1 NA US Renal w/bladder-20285 Reviewed date:04/10/2025 03:53:39 PM Interpretation: Performing Lab: Notes/Report: See Below For Report US Renal w/bladder To be completed THIS WEEK OR NEXT. No later than 04/11/2025. Read See Below For Report US Renal w/bladder-43358 Reviewed date:07/02/2025 07:16:53 AM Interpretation: Performing Lab: Notes/Report: [id number]=iSite UA Without Micro-[place], [place] - [address] Reviewed date:05/13/2025 10:36:08 AM Interpretation: Performing Lab: Notes/Report: Glucose 2+ Bili 0 Ketones 0 Sp [place] 1.010 Blood 3+ pH 6.0 Protein +- Urobili 0 Nitrites 0 Leukocytes 3+ Reason For Referral Reason EGD/COLON Diagnosis 1 Microcytic anemia (D 50.9) Diagnosis 2 Chronic diarrhea (K5 2.9) Diagnosis 3 Chronic gastroesopha geal reflux disease (K21.9) Referring Provider First Name Sim Santosu ff Referring Provider Last Name [place] [facility]erring Provider [facility] Referred Organization [facility] Referred Provider Marybel Parry Referred Address [address] [place],[address],[place] Referral Priority Routine Reason Prostate Abscess Diagnosis 1 Prostate abscess (N4 1.2) Referring Provider First Name Sim braga Referring Provider Last Name [place] Referring Provider Speciality [place] [facility] Referred Organization [facility] Referred Provider Jameel Schmitt Referred Address [address],[place],[address],[place] Referred Provider Specialty Urology Referral Priority Routine Reason PEPTIC ULCER DISEASE GASTRITIS Diagnosis 1 Peptic ulcer disease (K27.9) Diagnosis 2 Gastritis (K29.70) Referral Organization [facility] rna Medicine & Infectious Disease Referring Provider First Name Saurabh Referring Provider Last Name Andrea Referring Provider Speciality Infectious Disease Referred Organization [facility] Referred Provider Marybel Parry Referred Address [address] [place],[address],[place] Referred Provider Specialty Gastroentero logy Referral Priority Routine Reason Referring to Dr Jona gutierrez. Thank you! , RFS sent Diagnosis 1 Referral of patient (Z76.89) Referring Provider First Name Jameel Referring Provider Last Name Keshia Referring Provider Speciality Urology Referred Organization [facility] Neph rology Clinic Referred Provider Jess Hyde Referred Address [address] [place] [address] Omid Robison [address],[place],[address],[place] Referred Provider Specialty Nurse Abilio dowd Referral Priority Routine Reason Referring to Dr Jona gutierrez. Thank you! RFS sent Diagnosis 1 Referral of patient (Z76.89) Referral Organization [facility] Referring Provider First Name Jameel Referring Provider Last Name Keshia Referring Provider Speciality Urology Referred Organization [facility] Referred Provider Chang García Referred Address [address] [place] [address] [address],[place],[address],[place] Referred Provider Specialty Nephrology Referral Priority Routine Reason Referring to Dr Eric freed for chronic UTI. Thank you! RFS sent Diagnosis 1 Chronic UTI (N39.0) Referral Organization [facility] Referring Provider First Name Jameel Referring Provider Last Name Keshia Referring Provider Speciality Urology Referred Provider Saurabh Mendez Referred Provider Specialty Internal Med icine Referral Priority Routine Reason Chronic UTI RFS Se nt 05/13/25 Diagnosis 1 Chronic UTI (N39.0) Referring Provider First Name Jameel Referring Provider Last Name Keshia Referring Provider Speciality Urology Referred Organization [facility] Medicine & Infectious Disease Referred Provider Saurabh Mendez Referred Address [address] [place] [id number], Referral Priority Routine Medications Medication SIG (Take, Route, Frequency, Duration) Notes Start Date End Date Status Apple Cider Vinegar 250 MG Tablet Chewable as directed Orally Active cefTRIAXone Sodium 2 GM Solution Reconstituted as directed Injection Active Ferrous Gluconate 324 (38 Fe) MG Tablet 1 tablet Orally Three times a Week Active Zetia 10 MG Tablet 1 tablet Orally Once a day Active Jardiance 25 MG Tablet 1 tablet Orally Once a day Active Carafate 1 GM Tablet 1 tablet on an empty stomach Orally Once daily Not-Taking Cipro 500 MG Tablet 1 tablet Orally TIW; Duration: 30 days 06/16/2025 10/14/2025 Active traMADol HCl 50 MG Tablet 1 tablet as needed Orally Once a day Active Dexcom Boat Patcher Plastic Kit Active Tylenol Extra Strength 500 MG Tablet 1 tablet as needed Orally every 6 hrs Active NovoLOG FlexPen 100 UNIT/ML Solution Pen-injector 10 Units with meals Subcutaneous TID Active metFORMIN HCl 500 MG Tablet 1 tablet with a meal Orally Twice daily Not-Taking Ondansetron HCl 4 MG Tablet 1 tablet Orally Once a day Active Protonix 40 MG Tablet Delayed Release 1 tablet Orally Once a day Not-Taking Gvoke HypoPen 2-Pack 1 MG/0.2ML Solution Auto-injector as directed Subcutaneous PRN; Duration: 365 days 50% discount 01/27/2025 01/27/2027 Not-Taking Lantus SoloStar 100 UNIT/ML Solution Pen-injector Inject up to 50 Units Subcutaneous Daily; Duration: 30 days 50% discount Active NIFEdipine 60 MG Tablet Extended Release as directed Orally Active Iron 325 (65 Fe) MG Tablet 1 tablet Orally Twice daily Not-Taking Rosuvastatin Calcium 10 MG Tablet 1 tablet Orally Once a day Active Probiotic - Tablet Chewable as directed Orally Active Prochlorperazine 10 MG Tablet 1 tablet as needed Orally Three times a day Active Social History Tobacco Use: [...] in home : Deployment History: [id number], 2 deploytments [employer]az[employer]: [employer] 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 Education Masters Degree Section Notes: Denies Caffeine Denies Alcohol Denies Caffeine Denies Alcohol Denies Caffeine Denies Alcohol Denies Caffeine Denies Alcohol Denies Caffeine Denies Alcohol Denies Caffeine Denies Alcohol Problems Problem Type SNOMED Code ICD Code Onset Dates Problem Status W/U Status Risk Notes Problem Type II diabetes mellitus without complication (626614139) Type 2 diabetes mellitus without complications (E11.9) Active confirmed Problem Diabetic severe hyperglycemia (909607885) Other specified diabetes mellitus with hyperglycemia (E13.65) Active confirmed Problem Benign prostatic hypertrophy without outflow obstruction (484328228) Benign prostatic hyperplasia without lower urinary tract symptoms (N40.0) Active confirmed Problem Chronic cystitis (14147051) Chronic cystitis (N30.20) Active confirmed Problem Lower urinary tract symptoms due to benign prostatic hypertrophy (16909500577293) Benign prostatic hyperplasia with lower urinary tract symptoms, symptom details unspecified (N40.1) Active confirmed Problem Gastroesophageal reflux disease (disorder) (374797902) Chronic GERD (K21.9) Active confirmed Problem Iron deficiency anemia (18408261) Iron deficiency anemia, unspecified iron deficiency anemia type (D50.9) Active confirmed Problem Hyperparathyroidism (75327714) Hyperparathyroidism (E21.3) Active confirmed Problem Hyperphosphatemia (19556302) Hyperphosphatemia (E83.39) Active confirmed Problem Gastritis (1968153) Gastritis (K29.70) Active c onfirmed Problem Peptic ulcer disease (66949726) Peptic ulcer disease (K27.9) Active confirmed Problem Renal failure syndrome (89084711) Renal failure, unspecified chronicity (N19) Active confirmed Problem Microcytic anemia (477919810) Microcytic anemia (D50.9) Active confirmed Problem Iron deficiency anemia (20350476) Iron deficiency anemia (D50.9) Active confirmed Problem Neurologic disorder associated with type II diabetes mellitus (435742342) 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) Active confirmed Problem Hyperglycemia due to type 2 diabetes mellitus (018229815768117) Type 2 diabetes mellitus with hyperglycemia, unspecified whether longitudinal float operator insulin use (E11.65) Active confirmed Problem Long-term current us e of insulin (556831214) Current use of insulin (Z79.4) Active confirmed Problem Hypotonic bladder (689024316) Hypotonic bladder (N31.2) Active confirmed Problem Gastroesophageal reflux disease (412437600) Chronic gastroesophageal reflux disease (K21.9) Active confirmed Problem Ketoacidosis in type II diabetes mellitus (304016743) Diabetes mellitus type 2 with ketoacidosis, uncontrolled (E11.10) Active confirmed Vital Signs Heart Rate 100 /min 06/30/2025 Temperature 99.0 degrees Fahrenheit 06/30/2025 Respiratory Rate 17 /min 03/06/2025 Blood pressure diastolic 86 mm Hg 06/30/2025 Oximetry 100 % 06/30/2025 Height-cm 177.8 cm 06/30/2025 Weight-kg 87.0 kg 06/30/2025 Height 70 in 06/30/2025 Blood pressure systolic 133 mm Hg 06/30/2025 Weight 191.8 lbs 06/30/2025 BMI 27.52 kg/m2 06/30/2025 Procedures Procedure Date Ordered Date Performed Result Body Sit e PVR (Post Void Residual) 04/01/2025 04/01/2025 N/A PVR (Post Void Residual) 05/13/2025 05/13/2025 45mL PVR (Post Void Residual) 05/20/2025 05/20/2025 0mL PVR (Post Void Residual) 06/24/2025 06/24/2025 66ml Encounters Encounter Location Date Provider Diagnosis [facility] [address] [place] [address] 5 Abodunrtrish Parry Iron deficiency anemia, unspecified iron deficiency anemia type D50.9 [facility] [address] [place] [address] Dr [address] [place] [address] 5 Jess Hyde [facility] Internal Medicine & Infectious Disease [address] [place] [address] [place] [address] 5 Saurabh Andrea Abscess of prostate N41.2 and Renal failure, unspecified chronicity N19 [facility] [address] [place] [address] 5 Nae Love Other specified diabetes mellitus with hyperglycemia E13.65 ; Current use of insulin Z79.4 ; Diabetes education, encounter for Z71.89 ; Uses self-applied continuous glucose monitoring device Z97.8 and At risk for hypoglycemia Z91.89 [facility] Internal Medicine & Infectious Disease [address] [place] [address], [place] [address] 5 Saurabh Andrea Abscess of prostate N41.2 and Renal failure, unspecified chronicity N19 [facility] Internal Medicine & Infectious Disease [address] [place] [address], [place] [address] 5 Saurabh Andrea Abscess of prostate N41.2 and Renal failure, unspecified chronicity N19 [facility] Internal Medicine & Infectious Disease [address] [place] [address], [place] [address] 5 Saurabh Andrea Abscess of prostate N41.2 and Renal failure, unspecified chronicity N19 [facility] [address] [place] [address] [place] [address] 5 Jameel Rochasay Abscess of prostate N41.2 ; Flank pain R10.9 ; Incomplete bladder emptying R33.9 and Unspecified symptoms and signs involving the genitourinary system R39.9 [facility] [address] [place] [address] [place] [address] 5 Jameel Schmitt Benign prostatic hyperplasia with lower urinary tract symptoms, symptom details unspecified N40.1 ; Chronic UTI N39.0 and Hypotonic 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 [facility] [address] [place] [address] [place] [address] 5 Jameel Schmitt Cystitis N30.90 and Acute cystitis without hematuria N30.00 [facility] Internal Medicine & Infectious Disease [address] [place] [address], [place] [address] 5 Saurabh Andrea Abscess of prostate N41.2 and Renal failure, unspecified chronicity N19 [facility] [address] [place] [address] [place] [address] 5 Jameel Schmitt Benign prostatic hyperplasia with lower urinary tract symptoms, symptom details unspecified N40.1 ; Chronic cystitis N30.20 and Hypotonic 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 [facility] [address] [place] [address] Dr [address] [place] [address] 5 Jameel Rochasay [facility] [address] [place] [address] Dr [address] [place] [address] 5 Jameel Rochasay [facility] [address] [place] [address] 5 Muna Dubon [facility] [address] [place] [address] 5 Abodunrin Baderere Iron deficiency anemia, unspecified iron deficiency anemia type D50.9 [facility] [address] [place] [address] 5 Abodunrin Reynaldoerere Acute kidney injury N17.9 [facility] [address] [place] [address] Dr [address] [place] [address] 5 Chang García [facility] [address] [address] 5 Heydiin Brinda [facility] Internal Medicine & Infectious Disease [address] [place] [address] [place] [address] 5 Saurabh Mendez [facility] [address] [place] [address] Dr [address] [place] [address] 5 Jameel Schmitt Abscess of prostate N41.2 and Flank pain R10.9 [facility] [address] [place] [address] Dr [address] [place] [address] 5 Jameel Schmitt Urinary retention R33.9 and Hematuria, unspecified type R31.9 [facility] [address] [place] [address] Dr [address]ne [address] [place] [address] 5 Chang García Iron deficiency anemia D50.9 ; Hyperphosphatemia E83.39 ; Hyperparathyroidism E21.3 and RENNY (acute kidney injury) N17.9 [facility] [address] [place] [address] Dr [address] [place] [address] 5 [facility] [address] [place] [address] 5 [facility] [address] [place] [address] Dr [address] [place] [address] 5 Jess Hyde [facility] [address] [place] [address] 5 Jameel Keshia Benign prostatic hyperplasia without lower urinary tract symptoms N40.0 ; Flank pain R10.9 and Hematuria R31.9 Assessments Encounter Date Diagnosis (ICD Code) Assessment Notes Treatment Notes Treatment Clinical Notes Section Notes 12/30/2024 Iron deficiency anemia, unspecified iron deficiency anemia type (ICD-10 - D50.9) 04/01/2025 Abscess of prostate (ICD-10 - N41.2) 04/01/2025 Flank pain (ICD-10 - R10.9) 01/27/2025 Current use of insulin (ICD-10 - Z79.4) 03/24/2025 Abscess of prostate (ICD-10 - N41.2) 1. 44 yo white male with a history of recurrent UTI's, T2DM, nephropathy, neuropathy, and cigarette smoker 2. Admission 02-07-25 with Prostatic abscess, and renal failure -discharged 02-24-25, then was admitted in [facility]. - Requested pt get [...] resection/unro ofing of the prostatic abscess 5. 5 UC E. coli (R: amp, S: fortaz, cipro);02-07-25 Urine culture; E coli (R:amp, S: Fortaz, cipro) - 02-23-25 UC Neg at 48 hrs -02-26-25 BC Neg 6. Antibiotics; Day # 42 on 03-22-25 - DC Fortaz on 03-24-25 post-op (start date 02-09-25) duration 6 weeks AET 03-22-25 - DC Cipro PO 500mg BID (start date 03-24-25) . Pt notified to ME Cipro on 03-25-25 @ 945am 7. Gastritis, Peptic ulcer disease, improved on Carafate and Protonix. - Pt doing better on this treatment Labs 02-14-25 W 9.3, Plywood Matcher 6.31, CRP 9.79 02-23-25 W 7.6, Plywood Matcher 4.34, CRP 3.18 03-06-25; W 4.9, Plywood Matcher 4.18,, CRP 3.45, PSA .12, UM WBC U 378 03-24-25 W 5.0, Plywood Matcher 3.13, CRP .66 Follow up; PRN repeat labs Rosa Garber 01/21/2025 Iron deficiency anemia, unspecified iron deficiency [...] a fingerstick blood glucose monitor or the [employer] Sulema 3 cgm daily. The Sulema 3 [...] reviewed. Verbal and written instructions given including [employer] Customer support contact information. Patient is able [...] time spent with patient is 50 minutes 01/30/2025 Acute kidney injury (ICD-10 - N17.9) 03/06/2025 Abscess of prostate (ICD-10 - N41.2) 1. 44 yo white male with a history of recurrent UTI's, T2DM, nephropathy, neuropathy, and cigarette smoker 2. Admission 02-07-25 with Prostatic abscess, and renal failure -discharged 02-24-25, then was admitted in [facility]. - Requested pt get [...] resection/unro ofing of the prostatic abscess 5. 02-08-25 UC [...] on this treatment Labs 02-14-25 W 9.3, Plywood Matcher 6.31, CRP 9.79 02-23-25 W 7.6, Plywood Matcher 4.34, CRP 3.18 Follow up; 1 week labs and UC Rosa Garber 03/06/2025 Renal failure, unspecified chronicity (ICD-10 - N19) 1. 44 yo white male with a history of recurrent UTI's, T2DM, nephropathy, neuropathy, and cigarette smoker 2. Admission 02-07-25 with Prostatic abscess, and renal failure -discharged 02-24-25, then was admitted in [facility]. - Requested pt get [...] on this treatment Labs 02-14-25 W 9.3, Plywood Matcher 6.31, CRP 9.79 02-23-25 W 7.6, Plywood Matcher 4.34, CRP 3.18 Follow up; 1 week labs and UC Madhaved Stringerlevon Garber 03/13/2025 Abscess of prostate (ICD-10 - N41.2) 1. 44 yo white male with a history of recurrent UTI's, T2DM, nephropathy, neuropathy, and cigarette smoker 2. Admission 02-07-25 with Prostatic abscess, and renal failure -discharged 02-24-25, then was admitted in [facility]. - Requested pt get [...] on this treatment Labs 02-14-25 W 9.3, Plywood Matcher 6.31, CRP 9.79 02-23-25 W 7.6, Plywood Matcher 4.34, CRP 3.18 03-06-25; W size marker. 4.18, CRP 3.45 Follow up; 1 week labs and UC Serafinmonica Lea Shirlene 04/01/2025 Abscess of prostate (ICD-10 - N41.2) 04/01/2025 Urinary retention (ICD-10 - R33.9) 05/06/2025 Iron deficiency anemia (ICD-10 - D50.9) 05/13/2025 Benign prostatic hyperplasia with lower urinary tract symptoms, symptom details unspecified (ICD-10 - N40.1) 05/13/2025 Chronic UTI (ICD-10 - N39.0) 05/20/2025 Cystitis (ICD-10 - N30.90) 06/16/2025 Abscess of prostate (ICD-10 - N41.2) 1. 44 yo white male with a history of recurrent UTI's, T2DM, nephropathy, neuropathy, and cigarette smoker -02-07-25 with Prostatic abscess, and renal failure -no catheter now, no HD 2. Hospitalized in April 2025 for UTI at [facility] (elevated WBC, UC Neg at that time) -advised to get records from [place] -was treated with Cipro 3. Diagnostics; -CT [...] resection/unro ofing of the prostatic abscess 5. Antibiotics; - DC'd Fortaz on 03-24-25 post-op (start date 02-09-25) AET 03-22-25 at 42 days - DC'd Cipro PO 500mg BID (start date 03-24-25) 6.UTI Prophylaxis; - Begin Cipro 500mg 1 q Mon, Wed, Mon (start date 06-16-25) Labs 02-08-25 UC E. coli (R: amp, S: fortaz, cipro);02-07-25 Urine culture; E coli (R:amp, S: Fortaz, cipro) 03-06-25; W 4.9, Plywood Matcher 4.18,, CRP 3.45, PSA .12, UM WBC U 378 03-24-25 W 5.0, Plywood Matcher 3.13, CRP .66 Follow up; 2 weeks UC,UM,CBC,CRP, Comp Scribe Leonoralevon Armentas 06/16/2025 Renal failure, unspecified chronicity (ICD-10 - N19) 1. 44 yo white male with a history of recurrent UTI's, T2DM, nephropathy, neuropathy, and cigarette smoker -02-07-25 with Prostatic abscess, and renal failure -no catheter now, no HD 2. Hospitalized in April 2025 for UTI at [facility] (elevated WBC, UC Neg at that time) -advised to get records from [place] -was treated with Cipro 3. Diagnostics; -CT [...] resection/unro ofing of the prostatic abscess 5. Antibiotics; - DC'd Fortaz on 03-24-25 post-op (start date 02-09-25) AET 03-22-25 at 42 days - DC'd Cipro PO 500mg BID (start date 03-24-25) 6.UTI Prophylaxis; - Begin Cipro 500mg 1 q Mon, Wed, Fri (start date 06-16-25) Labs 02-08-25 UC E. coli (R: amp, S: fortaz, cipro);02-07-25 Urine culture; E coli (R:amp, S: Fortaz, cipro) 03-06-25; W 4.9, Plywood Matcher 4.18,, CRP 3.45, PSA .12, UM WBC U 378 03-24-25 W 5.0, Plywood Matcher 3.13, CRP .66 Follow up; 2 weeks UC,UM,CBC,CRP, Comp Scribe Leonoralevon Armentas 06/24/2025 Chronic cystitis (ICD-10 - N30.20) 06/24/2025 Benign prostatic hyperplasia with lower urinary tract symptoms, symptom details unspecified (ICD-10 - N40.1) 06/24/2025 Benign prostatic hyperplasia without lower urinary tract symptoms (ICD-10 - N40.0) 06/30/2025 Abscess of prostate (ICD-10 - N41.2) 1. 44 yo white male with a history of recurrent UTI's, T2DM, nephropathy, neuropathy, and cigarette smoker - Prostatic abscess, and renal failure -followed by Dr. Santana (Kidney) 2. Hospitalized in April 2025 for UTI at [facility] (elevated WBC, UC Neg at that time) -advised to get records from [place] -was treated with Cipro 3. Diagnostics; -CT [...] resection/unro ofing of the prostatic abscess 5. Antibiotics; - DC'd Fortaz on 03-24-25 post-op (start date 02-09-25) AET 03-22-25 at 42 days - DC'd Cipro PO 500mg BID (start date 03-24-25) 6.UTI Prophylaxis; -continue Cipro 500mg 1 q Mon, Wed, Fri (start date 06-16-25) Labs 06-16-25 W 4.2, Plywood Matcher 4.26, CRP <.50, UC Neg 06-24-25 UM WBC 20 Follow up; 4 months Rosa Garber 06/30/2025 Renal failure, unspecified chronicity (ICD-10 - N19) 1. 44 yo white male with a history of recurrent UTI's, T2DM, nephropathy, neuropathy, and cigarette smoker - Prostatic abscess, and renal failure -followed by Dr. Santana (Kidney) 2. Hospitalized in April 2025 for UTI at [facility] (elevated WBC, UC Neg at that time) -advised to get records from [place] -was treated with Cipro 3. Diagnostics; -CT [...] resection/unro ofing of the prostatic abscess 5. Antibiotics; - DC'd Fortaz on 03-24-25 post-op (start date 02-09-25) AET 03-22-25 at 42 days - DC'd Cipro PO 500mg BID (start date 03-24-25) 6.UTI Prophylaxis; -continue Cipro 500mg 1 q Mon, Wed, Fri (start date 06-16-25) Labs 06-16-25 W 4.2, Plywood Matcher 4.26, CRP <.50, UC Neg 06-24-25 UM WBC 20 Follow up; 4 months Rosa Garber 06/24/2025 Flank pain (ICD-10 - R10.9) 05/06/2025 Hyperphosphatemia (ICD-10 - E83.39) 06/24/2025 Hypotonic bladder (ICD-10 - N31.2) 05/13/2025 Hypotonic bladder (ICD-10 - N31.2) 05/20/2025 Acute cystitis without hematuria (ICD-10 - N30.00) 04/01/2025 Flank pain (ICD-10 - R10.9) 04/01/2025 Hematuria, unspecified type (ICD-10 - R31.9) 03/13/2025 Renal failure, unspecified chronicity (ICD-10 - N19) 1. 44 yo white male with a history of recurrent UTI's, T2DM, nephropathy, neuropathy, and cigarette smoker 2. Admission 02-07-25 with Prostatic abscess, and renal failure -discharged 02-24-25, then was admitted in [facility]. - Requested pt get [...] on this treatment Labs 02-14-25 W 9.3, Plywood Matcher 6.31, CRP 9.79 02-23-25 W 7.6, Plywood Matcher 4.34, CRP 3.18 03-06-25; W size marker. 4.18, CRP 3.45 Follow up; 1 week labs and UC Rosa Garber 01/27/2025 Diabetes education, encounter for (ICD-10 - Z71.89) 03/24/2025 Renal failure, unspecified chronicity (ICD-10 - N19) 1. 44 yo white male with a history of recurrent UTI's, T2DM, nephropathy, neuropathy, and cigarette smoker 2. Admission 02-07-25 with Prostatic abscess, and renal failure -discharged 02-24-25, then was admitted in [facility]. - Requested pt get [...] on this treatment Labs 02-14-25 W 9.3, Plywood Matcher 6.31, CRP 9.79 02-23-25 W 7.6, Plywood Matcher 4.34, CRP 3.18 03-06-25; W 4.9, Plywood Matcher 4.18,, CRP 3.45, PSA .12, UM WBC U 378 03-24-25 W 5.0, Plywood Matcher 3.13, CRP .66 Follow up; PRN repeat labs Rosa Garber 04/01/2025 Incomplete bladder emptying (ICD-10 - R33.9) 01/27/2025 Uses self-applied continuous glucose monitoring device (ICD-10 - Z97.8) 05/06/2025 Hyperparathyroidism (ICD-10 - E21.3) 06/24/2025 Hematuria (ICD-10 - R31.9) 01/27/2025 At risk for hypoglycemia (ICD-10 - Z91.89) 04/01/2025 Unspecified symptoms and signs involving the genitourinary system (ICD-10 - R39.9) 05/06/2025 RENNY (acute kidney injury) (ICD-10 - N17.9) 04/01/2025 Other Culture urine. 2 months wtih [...] emptying adequately today would not recommend urodynamics. 06/24/2025 Other Send urine for PCR and for micro. 3 months with UA and PVR continue follow ups it's infectious disease. Continue follow up with nephrology LEO this week or next week. Plan Of Treatment Pending Test Test Name Order Date Culture Urine [id number] 06/16/2025 Basic Metabolic Panel (BMP) 17481 2024 CBC w\ Auto Diff 41358 06/16/2025 Comprehensive Metabolic Panel (CMP) 8005 3 06/16/2025 Magnesium (B) 27951 05/06/2025 Creatinine (U) 15603 05/06/2025 Microscopic Urine 85936 06/24/2025 Microscopic Urine 51337 06/16/2025 CRP 41713 06/16/2025 Diagnostic Colonoscopy-90067 12/30/2024 EGD, Upper GI Diagnostic-86979 Future Test Test Name Order Date Basic Metabolic Panel (BMP) 92123 2024 Ferritin 13268 05/06/2025 Hemoglobin 08372 05/06/2025 Iron Binding Capacity Total 66238 2024 Iron Level 09646 05/06/2025 Phosphorus (B) 13662 05/06/2025 Protein (U) Random 68845 05/06/2025 Uric Acid (B) 68900 05/06/2025 Vitamin D Total (B) 94947 05/06/2025 UA Reflex Micro, Reflex Cult 67874, 8101 5, 52820 05/06/2025 PTH Intact 98100 05/06/2025 % Iron Saturation (Fe & TIBC)--34043,835 50 05/06/2025 Next Appt Details Provider Name:Jameel freed, 09/23/2025 10:00:00 AM, [address], [place], [address], Provider Name:Jess sandoval, 09/29/2025 10:20:00 AM, [address] [place] [address] , [address], [place], [address], Provider Name:Saurabh freed, 10/30/2025 01:00:00 PM, [address] [place] [address] [address], [place], [address], Provider Name:Chang García, 01/05/2026 09:40:00 AM, [address] [place] [address] Dr [address], [place], [address], Insurance Providers Payer Name Payer Address Payer Phone Subscriber Number Group Number Insured Name Patient Relationship to Insured Coverage Start Date Coverage End Date Web TPA Nguyen [address] [place] [address] [id number] Shanel Martinez Self - patient is the insured [employer] [address] [place] [phone] [id number] Shanel Martinez Self - patient is the insured Medical (General) History Medical History History ICD Code Diabetes with DKA Chicken Pox anemia bladder infections blood transfusion Back Trouble High Blood Pressure kidney stones Anxiety UTI Surgical History Surgery Date(Month/Year) vasectomy TURP Prostate surgery Hospitalization History Reason Date(Month/Year) DKA 2024 ICU for UTI 2024
--- OUTSIDE RECORDS SUMMARY | 2025-07-03 09:19 | XMS_ITS | Clinical Summary ---
Author Organization [facility] Facility Address [address] [address] Care Team Providers Care Highway Construction Inspector Name Role Phone Unavailable Primary Care Provider Unavailabl e Social History Tobacco Use Types Packs/Day Years [...] patient's age to complete this topic Insurance [id number] [place] [address] [facility] [employer] 1,2,3 ([employer])
--- OUTSIDE RECORDS SUMMARY | 2025-07-03 09:19 | XMS_ITS | Encounter Summary ---
Author Organization [employer] Address [address] [place] [address] Care Team Providers Care Horticultural Agent Name Role Phone Unavailable Primary Care Provider Unavailabl e Encounter Details Date Type Department Care Team (Late st Contact Info) Description 07/01/2025 External Device Data [facility] ABSTRACTION [...]
--- OUTSIDE RECORDS SUMMARY | 2025-07-03 09:19 | XMS_ITS | Encounter Summary ---
Author Organization [employer] Address [address] [place] [address] Care Team Providers Care Blanket Folder Name Role Phone Unavailable Primary Care Provider [...]
[2025-07-03] MEDS: ondansetron 2 mg/ML SDV 2 mL 4 MG IVP (09:35)
--- NOTE | 2025-07-03 09:37 | CT_ITS ---
WS: [id number] CT ABDOMEN PELVIS TECHNIQUE: Noncontrast CT of the abdomen and pelvis with coronal and sagittal reformatted images. CLINICAL INFORMATION: flank pain COMPARISON: CT 06/04/2025 DLP: 662.[address] scans at [facility] use at least one of these dose optimization techniques: automated exposure control; mA and/or kV adjustment per patient size (includes targeted exams where dose is matched to clinical indication); or iterative reconstruction. FINDINGS: Mild RIGHT hydronephrosis and ureterectasis with associated inflammatory stranding is stable compared to 06/04/2025. Recommend correlation for pyelonephritis. Persistent inflammatory stranding about the RIGHT kidney and RIGHT proximal ureter. No obstructing RIGHT renal or ureteral calculi visualized. No hydronephrosis in the LEFT kidney. No obstructing LEFT renal or ureteral calculi. Mild bladder wall thickening. Recommend correlation for cystitis. Persistent mild LEFT perinephric edema. Small LEFT renal cortical cyst. Adrenal glands are normal. Hepatosplenomegaly. Small esophageal hiatal hernia. Splenic artery calcification. Aortic calcification. Shotty retroperitoneal and para-aortic lymph nodes similar to the prior studies. Normal appendix. Tiny fat-containing umbilical hernia. CT/CT kidney stone [id number] IMPRESSION: 1. Mild RIGHT hydronephrosis similar to previous with the RIGHT ureterectasis. Persistent inflammatory stranding and edema about the RIGHT kidney and ureter suspicious for pyelonephritis. No obstructing RIGHT renal or ureteral calculi. 2. Mild persistent inflammatory stranding about the LEFT kidney. 3. Mild diffuse bladder wall thickening suspicious for cystitis. This is also similar to previous. 4. Normal appendix. 5. Small esophageal hiatal hernia. 6. Hepatosplenomegaly.
[2025-07-03 09:47] LABS: Hematocrit 31.7 % (37-53); Hemoglobin 10.70 g/dL (11.27-16.99); Mean Corpuscular HGB Conc 33.8 g/dL (30-55); Mean Corpuscular Hemoglobin 27.3 pg (27-33); Mean Corpuscular Volume 80.9 fl (82-101); Nucleated Red Blood Cells % 0 %; Platelet Count 175 10^3/cmm (157-399); Red Blood Count 3.92 10^6/uL (3.85-5.65); White Blood Count 4.62 10^3/uL (3.29-11.43)
[2025-07-03 10:08] LABS: Alanine Aminotransferase 26 U/L (0-41); Albumin Level 4.5 g/dL (3.5-5.2); Alkaline Phosphatase 86 U/L (40-130); Anion Gap 18.4 (5-19); Aspartate Amino Transferase 17 U/L (0-40); Blood Urea Nitrogen 61 mg/dL (6-20); Calcium 9.0 mg/dL (8.5-10.5); Carbon Dioxide 19 mmol/L (22-29); Chloride 106 mmol/L (98-107); Creatinine Clr Calc Pharmacy 23.4336; Globulin 3.2 g/dL (1.3-4.6); Glucose 162 mg/dL (65-115); Osmolality Calculated 307 mOsm/kg (285-295); Potassium 5.4 mmol/L (3.5-5.1); Sodium 138 mmol/L (136-145); Total Protein 7.7 g/dL (6.6-8.7)
--- NOTE | 2025-07-03 10:21 | PC.PHAR ---
Pt stated nothing has changed on his med list. I found 2 cholesterol medications so I verified with the [place] pharmacy Zetia 10mg was dc'd and Rosuvastatin is now 10 mg daily from 03/31/25.
[2025-07-03] MEDS: diphenhydrAMINE 50 mg/mL SDV 1mL IVP (10:33)
[2025-07-03 10:37] VITALS: BP 205/129; PULSE 95; O2SAT 99
[2025-07-03 10:45] LABS: Glucose Urine UA 3+ (Normal); Nitrate Urine Negative (Negative); Specific Gravity, Urine 1.012 (1.005-1.030)
[2025-07-03 10:47] LABS: Add Urine Microscopic? YES
[2025-07-03] MEDS: hyDRALAzine 20 mg/mL INJ 1 mL IVP (11:06)
[2025-07-03] MEDS: cefTRIAXone 1,000 mg SDV 1000 MG IVP (11:24)
[2025-07-03 11:47] VITALS: BP 214/126; PULSE 111; O2SAT 99
[2025-07-03 11:52] VITALS: BP 138/92; PULSE 110; O2SAT 99
[2025-07-03 12:10] VITALS: BP 159/95; PULSE 95; O2SAT 99
== END 2025-07-03 12:11 | disposition home or self-care (01) ==
PROVIDERS: Emergency Provider Family Medicine; PCP Family Medicine
DX: N12 Tubulo-interstitial nephritis, not specified as acute or chronic (principal); N18.9 Chronic kidney disease, unspecified; F17.290 Nicotine dependence, other tobacco product, uncomplicated; Z79.4 Long term (current) use of insulin
CPT/HCPCS: 36415; 74176; 80053; 81001; 85025; 87086; 96374; 96375; 99285; J0360; J0696; J0780; J1200; J1885; J2405; J7030

== ENCOUNTER 2025-07-10 05:47 | Emergency (ER) | payer OTHER, SELFPAY ==
[2025-07-10 05:50] VITALS: BP 184/118; PULSE 95; RESP 16; O2SAT 100; BMI 27.2
--- OUTSIDE RECORDS SUMMARY | 2025-07-10 05:55 | XMS_ITS | Clinical Summary ---
Author Organization 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 [employer] ([employer]) Account Type Relation to Patient Date of Phone Billing Address Corporate Other DEFAULT ADDRESS [address] [employer] [id number] [place] [id number] Advance Directives For more information, please contact: [phone] * Full Code (Latest Code Status on File) Date Activated Date Inactivated Comments 02/27/2025 11:34 PM 03/05/2025 4:34 PM
--- OUTSIDE RECORDS SUMMARY | 2025-07-10 05:55 | XMS_ITS | Patient Health Record ---
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 Name Role Phone Sil Gatica MD Primary Care Provider UnavailJess Russ Unavailable [phone] Jameel Schmitt Unavailable [phone] Chang García Unavailable [phone] Marybel Parry Unavailable [phone] Saurabh Mendez JR Unavailable [phone] Maria Luisa Baez Unavailable [phone] Muna Dubon Unavailable [phone] Nae Love Unavailable [phone] Allergies Allergen (clinical drug ingredient) Drug/Non Drug Allergy documented on EMR Reaction Allergy Type Onset Date Status No Known Drug Allergy Unknown Drug Allergy Active Results Component Value Reference Range Flag Notes Basic Metabolic Panel (BMP) 87687 Reviewed date:06/04/2025 01:33:05 PM Interpretation: Performing Lab: Notes/Report: Sodium 135 136-145 MMOL/L LOW Potassium 3.8 3.5-5.1 MMOL/L Chloride 106 98-107 MMOL/L CO2 17.4 20.0-31.0 MMOL/L LOW Glucose Serum 142 71-110 MG/DL HI Testing p erformed at [facility], [address] [place] [address] [place] [address]. CLIA ID#: [id number] BUN 67 7-21 MG/DL HI REVIEWED - MONA Y. Creat 5.24 .57-1.17 MG/DL HI D-khawcs-h-benzoquin one imine (NAPQI) is a metabolite of [...] the potential for falsely depressed results. GFR 13.1 NA Calculation pe rformed from [...] MG/DL Osmo Serum,Calculated 302 280-300 MOSM/KG HI CBC w\o Diff 13101 Reviewed date:12/28/2024 01:56:29 PM Interpretation: Performing Lab: Notes/Report: 1W 2424 WBC 6.8 4.5-11.0 X10'3 RBC 4.83 4.50-5.90 X10'6 Hgb 13.0 13.5-17.5 G/DL LOW Hct 37.1 41.0-53.0 % LOW MCV 76.8 80.0-100.0 FL LOW MCH 26.9 27.0-31.0 PG LOW MCHC 35.0 31.0-37.0 G/DL Platelet 188 150-400 X10'3 RDW-SD 37.6 35.0-49.0 FL RDW-CV 13.3 12.2-15.6 % MPV 10.6 9.2-12.0 FL CBC w\ Auto Diff 80070 Reviewed date:02/14/2025 07:29:24 AM Interpretation: Performing Lab: [...] HI Lymph Auto% 11.8 22.0-44.0 % LOW Mills Auto% 4.6 3.0-7.0 % Eos Auto% 2.8 2.0-4.0 % Baso Auto% 0.2 0.0-1.0 % Imm Gran% 3.4 .0-.4 % HI Neutro Abs 6.35 .80-7.70 Absolute Neutrophil Count 6350 NA Lymph Abs .97 .10-4.10 Mills Abs .38 .20-1.00 Eos Abs .23 .00-.40 Baso Abs .02 .00-.20 Imm Gran Abs .28 .00-.10 HI NRBC# .00 .00-.20 NRBC% .00 .00-.20 /100 intact WBC's Add to Specimen in lab--No C PT Reviewed date:04/30/2025 08:35:52 PM Interpretation: Performing Lab: Notes/Report: Add To Specimen In Lab Yes CBC w\o Diff 23879 Reviewed date:04/30/2025 08:36:07 PM Interpretation: Performing Lab: Notes/Report: WBC 9.9 4.5-11.0 X10'3 RBC 2.87 4.50-5.90 X10'6 LOW Hgb 7.7 13.5-17.5 G/DL LOW Hct 23.3 41.0-53.0 % LOW MCV 81.2 80.0-100.0 FL MCH 26.8 27.0-31.0 PG LOW MCHC 33.0 31.0-37.0 G/DL Platelet 267 150-400 X10'3 RDW-SD 40.4 35.0-49.0 FL RDW-CV 13.6 12.2-15.6 % MPV 9.7 9.2-12.0 FL CRP 19378 Reviewed date:02/24/2025 08:31:22 AM Interpretation: Performing Lab: Notes/Report: report called 3529 CRP 3.18 .40-1.00 MG/DL MS US Renal w/bladder-60309 Reviewed date:07/02/2025 07:16:53 AM Interpretation: Performing Lab: Notes/Report: fyl=[id number]&[email or web address]=iSite US Renal w/bladder-08000 Reviewed date:04/10/2025 03:53:48 PM Interpretation: Performing Lab: Notes/Report: srz=[id number]&org=iSite UA Without [place], [place] - [id number] Reviewed date:06/24/2025 10:06:18 AM Interpretation: Performing Lab: Notes/Report: Glucose 1+ Bili 0 Ketones 0 Sp Arpin 1.015 Blood 2+ pH 6.0 Protein 0 Urobili 0 Nitrites 0 Leukocytes 1+ US Renal w/bladder-15478 Reviewed date:04/10/2025 03:53:39 PM Interpretation: Performing Lab: Notes/Report: See Below For Report US Renal w/bladder To be completed THIS WEEK OR NEXT. No later than 04/11/2025. Read See Below For Report Culture Urine 91856 Reviewed date:05/23/2025 06:55:17 AM Interpretation: Performing Lab: Notes/Report: Culture Urine Derek SHANEL BERRY Culture Urine t: Culture Urine Culture Urine [facility] [id number] Culture Urine n: Culture Urine Microbiology Culture [...] Culture Urine O1: Culture Urine (Culture Urine 52480) Culture Urine Diagnosis Description: Acute cystitis without hematuria UA [employer] [place], [place] - [address] Reviewed date:05/20/2025 10:22:04 AM Interpretation: Performing Lab: Notes/Report: Glucose 1+ Bili 0 Ketones 0 Sp Arpin 1.010 Blood 3+ pH 6.0 Protein +- Urobili 0 Nitrites 0 Leukocytes 3+ Microscopic Urine 61479 Reviewed date:07/07/2025 03:38:58 PM Interpretation: Performing Lab: Notes/Report: Diagnosis Description: Hematuria, unspecified RBC U 5 NA WBC U 20 0-5 /HPF HI Bacteria None Seen NA SQ EPI 1 NA CRP 70980 Reviewed date:03/26/2025 08:16:31 AM Interpretation: Performing Lab: Notes/Report: Diagnosis Description: Abscess of prostate Diagnosis Description: Unspecified kidney failure CRP .66 .40-1.00 MG/DL Comprehensive Metabolic Pane l (CMP) 79956 Reviewed date:03/26/2025 08:16:44 AM Interpretation: Performing Lab: Notes/Report: Diagnosis Description: Abscess of prostate Diagnosis Description: Unspecified kidney failure Glucose Serum 99 71-110 MG/DL Testing p erformed at [facility], [address] [place] [address] [place] [address]. CLIA ID#: [id number] BUN 67 7-21 MG/DL HI Creat 3.13 .57-1.17 MG/DL HI K-pnmmot-a-benzoquin one imine (NAPQI) is a metabolite of [...] the potential for falsely depressed results. GFR 24.3 NA Calculation pe rformed from [...] 280-300 MOSM/KG HI CBC w\ Auto Diff 90304 Reviewed date:03/26/2025 08:16:37 AM Interpretation: Performing Lab: [...] 40.0-70.0 % Lymph Auto% 38.4 22.0-44.0 % Mills Auto% 5.7 3.0-7.0 % Eos Auto% 7.9 2.0-4.0 % HI Baso Auto% 0.6 0.0-1.0 % Imm Gran% .4 .0-.4 % Neutro Abs 2.33 .80-7.70 Absolute Neutrophil Count 2330 NA Lymph Abs 1.90 .10-4.10 Mills Abs .28 .20-1.00 Eos Abs .39 .00-.40 Baso Abs .03 .00-.20 Imm Gran Abs .02 .00-.10 NRBC# .00 .00-.20 NRBC% .00 .00-.20 /100 intact WBC's CRP 33193 Reviewed date:02/14/2025 07:29:09 AM Interpretation: Performing Lab: Notes/Report: 4421 @ 2013 CRP 12.03 .40-1.00 MG/DL HI Comprehensive Metabolic Pane l (CMP) 45144 Reviewed date:02/14/2025 07:29:14 AM Interpretation: Performing Lab: Notes/Report: 4421 @ 2013 Glucose Serum 123 71-110 MG/DL HI Testing p erformed at [facility], [address] [place] [address] [place] [address]. CLIA ID#: [id number] BUN 46 7-21 MG/DL HI Creat 6.30 .57-1.17 MG/DL HI K-uufkev-w-benzoquin one imine (NAPQI) is a metabolite of [...] 12-78 UNIT/L Osmo Serum,Calculated 295 280-300 MOSM/KG Basic Metabolic Panel (BMP) 58936 Reviewed date:01/30/2025 10:24:37 AM Interpretation: Performing Lab: Notes/Report: in Endoscopy pre procedure area Sodium 134 136-145 MMOL/L LOW Potassium 3.6 3.5-5.1 MMOL/L Chloride 98 98-107 MMOL/L CO2 22.9 20.0-31.0 MMOL/L Glucose Serum 291 71-110 MG/DL HI Testing p erformed at [facility], [address] [place] [address] [place] [address]. CLIA ID#: [id number] BUN 37 7-21 MG/DL HI DELTA NOTED BY TECH Creat 2.80 .57-1.17 MG/DL HI U-sojuhg-l-benzoquin one imine (NAPQI) is a metabolite of [...] the potential for falsely depressed results. GFR 27.8 NA Calculation pe rformed from [...] MG/DL LOW Osmo Serum,Calculated 297 280-300 MOSM/KG Glucometer WB--02125 Reviewed date:01/21/2025 02:36:40 PM Interpretation: Performing Lab: Notes/Report: Glucometer WBG 269 65-110 MG/DL HI Notify Dr~Asymptomatic~Meter : [id number]~Retoucher Photoengraving: [id number] BRANDIE TITUS Basic Metabolic Panel (BMP) 74534 Reviewed date:04/30/2025 08:35:52 PM Interpretation: Performing Lab: Notes/Report: Sodium 131 136-145 MMOL/L LOW Potassium 3.6 3.5-5.1 MMOL/L Chloride 103 98-107 MMOL/L CO2 12.5 20.0-31.0 MMOL/L LOW Glucose Serum 148 71-110 MG/DL HI Testing p erformed at [facility], [address] [place] [address] [place] [address]. CLIA ID#: [id number] BUN 78 7-21 MG/DL HI Delta check no dewey, will monitor Creat 6.13 .57-1.17 MG/DL HI K-gdjxde-n-benzoquin one imine (NAPQI) is a metabolite of [...] the potential for falsely depressed results. GFR 10.8 NA Calculation pe rformed from [...] 8.7-10.4 MG/DL Osmo Serum,Calculated 298 280-300 MOSM/KG U[place] [employer] [place], [place] - [address] Reviewed date:04/01/2025 08:30:44 AM Interpretation: Performing Lab: Notes/Report: Glucose 2+ Bili - Ketones - Sp Arpin 1.010 Blood 1+ pH 6.0 Protein +- Urobili - Nitrites - Leukocytes 3+ Culture Urine 96832 Reviewed date:04/04/2025 11:04:54 AM Interpretation: Performing Lab: Notes/Report: Culture Urine SHANEL Ruiz Culture Urine t: Culture Urine Culture Urine [facility] [id number] Culture Urine n: Culture Urine Microbiology Culture [...] Culture Urine O1: Culture Urine (Culture Urine 22792) Culture Urine Diagnosis Description: Unspecified symptoms and signs involving the genitourinary system Culture Urine 06535 (Not yet reviewed by provider) Interpretation: Performing Lab: Notes/Report: Culture Urine SHANEL Ruiz Culture Urine t: Culture Urine Culture Urine [facility] [id number] Culture Urine n: Culture Urine Microbiology Culture [...] Culture Urine O1: Culture Urine (Culture Urine 17377) Culture Urine Diagnosis Description: Abscess of prostate Culture Urine Diagnosis Description: Unspecified kidney failure CBC w\ Auto Diff 00859 (Not yet reviewed by provider) Interpretation: Performing [...] 40.0-70.0 % Lymph Auto% 40.5 22.0-44.0 % Mills Auto% 5.8 3.0-7.0 % Eos Auto% 5.5 2.0-4.0 % HI Baso Auto% 0.7 0.0-1.0 % Imm Gran% .2 .0-.4 % Neutro Abs 1.97 .80-7.70 Absolute Neutrophil Count 1970 NA Lymph Abs 1.69 .10-4.10 Mills Abs .24 .20-1.00 Eos Abs .23 .00-.40 Baso Abs .03 .00-.20 Imm Gran Abs .01 .00-.10 NRBC# .00 .00-.20 NRBC% .00 .00-.20 /100 intact WBC's Comprehensive Metabolic Pane l (CMP) 90858 (Not yet reviewed by provider) Interpretation: Performing Lab: Notes/Report: Diagnosis Description: Abscess of prostate Glucose Serum 168 71-110 MG/DL HI Testing p erformed at [facility], [address] [place] [address] [place] [address]. CLIA ID#: [id number] BUN 70 7-21 MG/DL HI Creat 4.26 .57-1.17 MG/DL HI P-dkdywz-j-benzoquin one imine (NAPQI) is a metabolite of [...] UNIT/L Osmo Serum,Calculated 312 280-300 MOSM/KG HI Microscopic Urine 16205 (Not yet reviewed by provider) Interpretation: Performing Lab: Notes/Report: Diagnosis Description: Abscess of prostate Diagnosis Description: Unspecified kidney failure RBC U 3 NA WBC U 26 0-5 /HPF HI Bacteria None Seen NA Hyaline Casts 1 NA SQ EPI <1 NA CRP 44863 (Not yet reviewed by provider) Interpretation: Performing Lab: Notes/Report: Diagnosis Description: Abscess of prostate CRP <.50 .40-1.00 MG/DL Magnesium (B) 74408 Reviewed date:04/30/2025 08:31:34 PM Interpretation: Performing Lab: Notes/Report: Magnesium 2.5 1.8-2.4 MG/DL HI Phosphorus (B) 41665 Reviewed date:04/30/2025 08:31:34 PM Interpretation: Performing Lab: Notes/Report: Phos 5.1 2.4-5.1 MG/DL CBC w\o Diff 14495 Reviewed date:05/05/2025 04:51:50 PM Interpretation: Performing Lab: Notes/Report: WBC 6.4 4.5-11.0 X10'3 RBC 2.69 4.50-5.90 X10'6 LOW Hgb 7.1 13.5-17.5 G/DL LOW Hct 21.9 41.0-53.0 % LOW MCV 81.4 80.0-100.0 FL MCH 26.4 27.0-31.0 PG LOW MCHC 32.4 31.0-37.0 G/DL Platelet 344 150-400 X10'3 RDW-SD 40.7 35.0-49.0 FL RDW-CV 13.5 12.2-15.6 % MPV 9.5 9.2-12.0 FL Phosphorus (B) 30595 Reviewed date:05/05/2025 04:51:50 PM Interpretation: Performing Lab: Notes/Report: Phos 4.7 2.4-5.1 MG/DL Magnesium (B) 08866 Reviewed date:05/05/2025 04:51:50 PM Interpretation: Performing Lab: Notes/Report: Magnesium 2.3 1.8-2.4 MG/DL Ferritin 25064 Reviewed date:02/12/2025 04:25:31 PM Interpretation: Performing Lab: Notes/Report: 4421 @ 2013 Ferritin 1106 8-388 NG/ML MS Comprehensive Metabolic Pane l (CMP) 69400 Reviewed date:02/13/2025 03:35:54 PM Interpretation: Performing Lab: Notes/Report: 4421 @ 2013 Glucose Serum 134 71-110 MG/DL HI Testing p erformed at [facility], [address] [place] [address] [place] [address]. CLIA ID#: [id number] BUN 52 7-21 MG/DL HI Creat 6.93 .57-1.17 MG/DL HI J-uhklyr-x-benzoquin one imine (NAPQI) is a metabolite of [...] the potential for falsely depressed results. GFR 9.4 NA Calculation pe rformed from [...] 12-78 UNIT/L Osmo Serum,Calculated 298 280-300 MOSM/KG Microscopic Urine 22117 Reviewed date:03/08/2025 08:08:02 AM Interpretation: Performing Lab: Notes/Report: Diagnosis Description: Abscess of prostate Diagnosis Description: Unspecified kidney failure RBC U 94 NA WBC U 378 0-5 /HPF HI Bacteria 1+ NA Hyaline Casts 3 NA SQ EPI <1 NA PSA Diagnostic--12033 Reviewed date:03/08/2025 08:07:45 AM Interpretation: Performing Lab: Notes/Report: Diagnosis Description: Abscess of prostate PSA .12 .00-4.00 NG/ML PSA concen trations, regardless of the value, should not be interpreted as definitive evidence for the presence or absence of prostate cancer. Culture Urine 95355 Reviewed date:03/08/2025 08:07:55 AM Interpretation: Performing Lab: Notes/Report: Culture Urine SHANEL Ruiz Culture Urine t: Culture Urine Culture Urine [facility] [id number] Culture Urine n: Culture Urine Microbiology Culture [...] Culture Urine O1: Culture Urine (Culture Urine 49685) Culture Urine Diagnosis Description: Abscess of prostate Culture Urine Diagnosis Description: Unspecified kidney failure CBC w\ Auto Diff 91625 Reviewed date:03/08/2025 08:08:36 AM Interpretation: Performing Lab: [...] 40.0-70.0 % Lymph Auto% 23.6 22.0-44.0 % Mills Auto% 7.4 3.0-7.0 % HI Eos Auto% 8.8 2.0-4.0 % HI Baso Auto% 0.6 0.0-1.0 % Imm Gran% .6 .0-.4 % HI Neutro Abs 2.87 .80-7.70 Absolute Neutrophil Count 2870 NA Lymph Abs 1.15 .10-4.10 Mills Abs .36 .20-1.00 Eos Abs .43 .00-.40 HI Baso Abs .03 .00-.20 Imm Gran Abs .03 .00-.10 NRBC# .00 .00-.20 NRBC% .00 .00-.20 /100 intact WBC's Comprehensive Metabolic Pane l (CMP) 40640 Reviewed date:03/08/2025 08:08:41 AM Interpretation: Performing Lab: Notes/Report: Diagnosis Description: Abscess of prostate Diagnosis Description: Unspecified kidney failure Glucose Serum 217 71-110 MG/DL HI Testing p erformed at [facility], [address] [place] [address] [place] [address]. CLIA ID#: [id number] BUN 58 7-21 MG/DL HI Creat 4.18 .57-1.17 MG/DL HI T-gfkiej-n-benzoquin one imine (NAPQI) is a metabolite of [...] the potential for falsely depressed results. GFR 17.2 NA Calculation pe rformed from [...] UNIT/L Osmo Serum,Calculated 289 280-300 MOSM/KG CRP 83581 Reviewed date:03/08/2025 08:08:32 AM Interpretation: Performing Lab: Notes/Report: Diagnosis Description: Abscess of prostate Diagnosis Description: Unspecified kidney failure CRP 3.45 .40-1.00 MG/DL HI UA [facility] [place], [place] - [address] Reviewed date:05/13/2025 10:36:08 AM Interpretation: Performing Lab: Notes/Report: Glucose 2+ Bili 0 Ketones 0 Sp Arpin 1.010 Blood 3+ pH 6.0 Protein +- Urobili 0 Nitrites 0 Leukocytes 3+ US Renal w/bladder-37778 Reviewed date:07/02/2025 07:27:20 AM Interpretation: Performing Lab: Notes/Report: See Below For Report US Renal w/bladder To be completed this week or next. Thank you. Read See Below For Report Phosphorus (B) 48711 Reviewed date:06/04/2025 01:33:05 PM Interpretation: Performing Lab: Notes/Report: Phos 5.2 2.4-5.1 MG/DL HI % Iron Saturation (Fe & TIBC )--09884,99248 Reviewed date:04/30/2025 08:36:07 PM Interpretation: Performing Lab: Notes/Report: Iron 7 65-175 MCG/DL LOW Per Iron as say instruction for Use(IFU), patients treated with metal-binding drugs (e.g.deferoxamine) may have depressed iron values as chelated iron may not properly react in the iron assay. Testing was performed with this assay method. TIBC 178 250-450 NG/DL LOW % Iron Saturation 4 20-50 % LOW Ferritin 67569 Reviewed date:04/30/2025 08:36:07 PM Interpretation: Performing Lab: Notes/Report: Ferritin 1253 8-388 NG/ML HI Basic Metabolic Panel (BMP) 39093 Reviewed date:04/30/2025 08:36:07 PM Interpretation: Performing Lab: Notes/Report: Sodium 130 136-145 MMOL/L LOW Potassium 3.7 3.5-5.1 MMOL/L Chloride 102 98-107 MMOL/L CO2 13.7 20.0-31.0 MMOL/L LOW Glucose Serum 179 71-110 MG/DL HI Testing p erformed at [facility], [address] [place] [address] [place] [address]. CLIA ID#: [id number] BUN 91 7-21 MG/DL HI REPEATED - MONA Y Creat 6.11 .57-1.17 MG/DL HI Q-ipddsy-f-benzoquin one imine (NAPQI) is a metabolite of [...] LOW Osmo Serum,Calculated 302 280-300 MOSM/KG HI % Iron Saturation (Fe & TIBC )--02568,52346 Reviewed date:02/12/2025 04:25:31 PM Interpretation: Performing Lab: [...] Saturation 10 20-50 % LOW Phosphorus (B) 29785 Reviewed date:02/12/2025 04:25:31 PM Interpretation: Performing Lab: Notes/Report: 4421 @ 2013 Phos 6.1 2.4-5.1 MG/DL HI Magnesium (B) 26989 Reviewed date:02/12/2025 04:25:31 PM Interpretation: Performing Lab: Notes/Report: 44 @ 2013 Magnesium 1.9 1.8-2.4 MG/DL CBC w\ Auto Diff 82403 Reviewed date:02/12/2025 04:25:31 PM Interpretation: Performing Lab: [...] HI Lymph Auto% 12.7 22.0-44.0 % LOW Mills Auto% 6.6 3.0-7.0 % Eos Auto% 3.2 2.0-4.0 % Baso Auto% 0.2 0.0-1.0 % Imm Gran% 2.7 .0-.4 % HI Neutro Abs 6.10 .80-7.70 Absolute Neutrophil Count 6100 NA Lymph Abs 1.04 .10-4.10 Mills Abs .54 .20-1.00 Eos Abs .26 .00-.40 Baso Abs .02 .00-.20 Imm Gran Abs .22 .00-.10 HI NRBC# .00 .00-.20 NRBC% .00 .00-.20 /100 intact WBC's Calcium Ionized (B) 20188 Reviewed date:02/12/2025 04:25:31 PM Interpretation: Performing Lab: Notes/Report: 4421 @ 2013 Calcium Ionized 1.06 1.09-1.30 MMOL/L LOW CRP 23587 Reviewed date:02/14/2025 07:27:42 AM Interpretation: Performing Lab: Notes/Report: 4421 @ 2013 CRP 9.79 .40-1.00 MG/DL MS Comprehensive Metabolic Pane l ([facility]) 01673 Reviewed date:02/14/2025 07:27:55 AM Interpretation: Performing Lab: Notes/Report: 4421 @ 2013 Glucose Serum 138 71-110 MG/DL HI Testing p erformed at [facility], [address] [place] [address] [place] [address]. CLIA ID#: [id number] BUN 44 7-21 MG/DL HI Creat 6.31 .57-1.17 MG/DL HI X-algsdd-w-benzoquin one imine (NAPQI) is a metabolite of [...] 12-78 UNIT/L Osmo Serum,Calculated 297 280-300 MOSM/KG CBC w\ Auto Diff 26984 Reviewed date:02/14/2025 07:27:34 AM Interpretation: Performing Lab: [...] HI Lymph Auto% 11.6 22.0-44.0 % LOW Mills Auto% 4.9 3.0-7.0 % Eos Auto% 3.3 2.0-4.0 % Baso Auto% 0.2 0.0-1.0 % Imm Gran% 3.2 .0-.4 % HI Neutro Abs 7.15 .80-7.70 Absolute Neutrophil Count 7150 NA Lymph Abs 1.08 .10-4.10 Mills Abs .46 .20-1.00 Eos Abs .31 .00-.40 Baso Abs .02 .00-.20 Imm Gran Abs .30 .00-.10 HI NRBC# .00 .00-.20 NRBC% .00 .00-.20 /100 intact WBC's Reason For Referral Reason EGD/COLON Diagnosis 1 Microcytic anemia (D 50.9) Diagnosis 2 Chronic diarrhea (K5 2.9) Diagnosis 3 Chronic gastroesopha geal reflux disease (K21.9) Referring Provider First Name Sim Miguel Referring Provider Last Name [place] Referring Provider Speciality [facility] Referred Organization [facility] Referred Provider Marybel Parry Referred Address [address] [place],[address],[place] Referral Priority Routine Reason Prostate Abscess Diagnosis 1 Prostate abscess (N4 1.2) Referring Provider First Name Sim braga Referring Provider Last Name [place] Referring Provider Speciality [facility] Referred Organization [facility] Referred Provider Jameel Schmitt Referred Address [address],[place],[address],[place] Referred Provider Specialty Urology Referral Priority Routine Reason PEPTIC ULCER DISEASE GASTRITIS Diagnosis 1 Peptic ulcer disease (K27.9) Diagnosis 2 Gastritis (K29.70) Referral Organization [facility] Referring Provider First Name Saurabh Referring Provider Last Name Andrea Referring Provider Speciality Infectious Disease Referred Organization [facility] Referred Provider Marybel Parry Referred Address [address] [place],[address],[place] Referred Provider Specialty Gastroentero logy Referral Priority Routine Reason Referring to Dr Jona gutierrez. Thank you! , RFS sent Diagnosis 1 Referral of patient (Z76.89) Referring Provider First Name Jameel Referring Provider Last Name Keshia Referring Provider Speciality Urology Referred Organization [facility] Referred Provider Jess Hyde Referred Address [address] [place] [address] [address],[address],[place] Referred Provider Specialty Nurse Abilio dowd Referral Priority Routine Reason Referring to Dr Jona gutierrez. Thank you! RFS sent Diagnosis 1 Referral of patient (Z76.89) Referral Organization [facility] Referring Provider First Name Jaemel Referring Provider Last Name Keshia Referring Provider Speciality Urology Referred Organization [facility] Referred Provider Chang García Referred Address [address] [place] [address] [address],[address],[place] Referred Provider Specialty Nephrology Referral Priority Routine Reason Referring to Dr Eric freed for chronic UTI. Thank you! RFS sent Diagnosis 1 Chronic UTI (N39.0) Referral Organization [facility] Referring Provider First Name Jameel Referring Provider Last Name Keshia Referring Provider Speciality Urology Referred Provider Saurabh Mendez Referred Provider Specialty Internal Med icine Referral Priority Routine Reason Chronic UTI RFS Se nt 05/13/25 Diagnosis 1 Chronic UTI (N39.0) Referring Provider First Name Jameel Referring Provider Last Name Keshia Referring Provider Speciality Urology Referred Organization [facility] Referred Provider Saurabh Mendez Referred Address [address] [place] [address],[facility],[address], Referral Priority Routine Medications Medication SIG (Take, [...] needed Orally Once a day Active Dexcom Electrician Technician Kit Active Tylenol Extra Strength 500 MG [...] 1 tablet Orally Once a day Active Macrobid 100 MG Capsule 1 capsule with food Orally twice a day; Duration: 7 days 07/04/2025 07/11/2025 Active Probiotic - Tablet Chewable as directed [...] in home : Deployment History: [phone], 2 deploytments Am[employer]: Muslim 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 Education Masters Degree Section Notes: Denies Caffeine Denies Alcohol Denies Caffeine Denies Alcohol Denies Caffeine Denies Alcohol Denies Caffeine Denies Alcohol Denies Caffeine Denies Alcohol Denies Caffeine Denies Alcohol Problems Problem Type SNOMED Code ICD Code Onset Dates Problem Status W/U Status Risk Notes Problem Type II diabetes mellitus without complication (822961256) Type 2 diabetes mellitus without complications (E11.9) Active confirmed Problem Diabetic severe hyperglycemia (961034053) Other specified diabetes mellitus with hyperglycemia (E13.65) Active confirmed Problem Benign prostatic hypertrophy without outflow obstruction (386757353) Benign prostatic hyperplasia without lower urinary tract symptoms (N40.0) Active confirmed Problem Chronic cystitis (56799071) Chronic cystitis (N30.20) Active confirmed Problem Lower urinary tract symptoms due to benign prostatic hypertrophy (37482685662897) Benign prostatic hyperplasia with lower urinary tract symptoms, symptom details unspecified (N40.1) Active confirmed Problem Gastroesophageal reflux disease (disorder) (314356367) Chronic GERD (K21.9) Active confirmed Problem Iron deficiency anemia (74610048) Iron deficiency anemia, unspecified iron deficiency anemia type (D50.9) Active confirmed Problem Hyperparathyroidism (77939921) Hyperparathyroidism (E21.3) Active confirmed Problem Hyperphosphatemia (87825636) Hyperphosphatemia (E83.39) Active confirmed Problem Gastritis (7919439) Gastritis (K29.70) Active c onfirmed Problem Peptic ulcer disease (21117740) Peptic ulcer disease (K27.9) Active confirmed Problem Renal failure syndrome (62267798) Renal failure, unspecified chronicity (N19) Active confirmed Problem Microcytic anemia (742095583) Microcytic anemia (D50.9) Active confirmed Problem Iron deficiency anemia (40663989) Iron deficiency anemia (D50.9) Active confirmed Problem Neurologic disorder associated with type II diabetes mellitus (984933423) 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) Active confirmed Problem Hyperglycemia due to type 2 diabetes mellitus (202654649893219) Type 2 diabetes mellitus with hyperglycemia, unspecified whether mcc insulin use (E11.65) Active confirmed Problem Long-term current us e of insulin (837877355) Current use of insulin (Z79.4) Active confirmed Problem Hypotonic bladder (732550781) Hypotonic bladder (N31.2) Active confirmed Problem Gastroesophageal reflux disease (487805603) Chronic gastroesophageal reflux disease (K21.9) Active confirmed Problem Ketoacidosis in type II diabetes mellitus (773433824) Diabetes mellitus type 2 with ketoacidosis, uncontrolled [...] 66ml Encounters Encounter Location Date Provider Diagnosis Formerly [facility] [address] [place] [address], [place] [address] 5 Saurabh Andrea Abscess of prostate N41.2 and Renal failure, unspecified chronicity N19 Formerly [facility] [address] [place] [address], [place] [address] 5 Saurabh Andrea Abscess of prostate N41.2 and Renal failure, unspecified chronicity N19 Formerly [facility] [address] [place] [address], [place] [address] 5 Saurabh Andrea Abscess of prostate N41.2 and Renal failure, unspecified chronicity N19 Formerly [facility] [address] [place] [address], [place] [address] 5 Saurabh Andrea Abscess of prostate N41.2 and Renal failure, unspecified chronicity N19 Formerly [facility] [address] [place] [address] Dr Anne [address] [place] [address] 5 Jameel Keshia Benign prostatic hyperplasia with lower urinary tract symptoms, symptom details unspecified N40.1 ; Chronic cystitis N30.20 and Hypotonic 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 Formerly [facility] [address] [place] [address] [place] [address] 5 Jameel Keshia Abscess of prostate N41.2 ; Flank pain R10.9 ; Incomplete bladder emptying R33.9 and Unspecified symptoms and signs involving the genitourinary system R39.9 Formerly [facility] [address] [place] [address], [place] [address] 5 Saurabh Andrea Abscess of prostate N41.2 and Renal failure, unspecified chronicity N19 Formerly [facility] [address] [place] [address] [address] [place] [address] 5 Jess Hyde [facility]ly [facility] [address] [place] [address] Dr [address] [place] [address] 5 Jameel Keshia Benign prostatic hyperplasia with lower urinary tract symptoms, symptom details unspecified N40.1 ; Chronic UTI N39.0 and Hypotonic 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 [facility]ly [facility] [address] [place] [address] 5 Maryebl Parry Iron deficiency anemia, unspecified iron deficiency anemia type D50.9 [facility] [address] [place] [address] 5 Nae Love Other specified diabetes mellitus with hyperglycemia E13.65 ; Current use of insulin Z79.4 ; Diabetes education, encounter for Z71.89 ; Uses self-applied continuous glucose monitoring device Z97.8 and At risk for hypoglycemia Z91.89 Former[facility] [address] [place] [address] [place] [address] 5 Jameel Schmitt Cystitis N30.90 and Acute cystitis without hematuria N30.00 [facility]ly [facility] [address] [place] [address] [place] [address] 5 Jameel Rochasay [facility]ly [facility] [address] [place] [address] Dr [address] [place] [address] 5 Chang García Iron deficiency anemia D50.9 ; Hyperphosphatemia E83.39 ; Hyperparathyroidism E21.3 and RENNY (acute kidney injury) N17.9 Formerly [facility] [address] [place] [address] [place] [address] 5 Jameel Schmitt Urinary retention R33.9 and Hematuria, unspecified type R31.9 [facility] [address] [place] [address] [place] [address] 5 Jameel Schmitt Abscess of prostate N41.2 and Flank pain R10.9 [facility] [address] [place] [address] [place] [address] 5 Saurabh Mendez [facility] [address] [place] [address] 5 Marybel Parry [facility] [address] [place] [address] Dr [address] [place] [address] 5 Chang García [facility] [address] [place] [address] 5 Aboeric Parry Acute kidney injury N17.9 [facility] [address] [place] [address] 5 Marybel Parry Iron deficiency anemia, unspecified iron deficiency anemia type D50.9 [facility] [address] [place] [address] 5 Muna Dubon [facility] [address] [place] [address] Dr [address] [place] [address] 5 Jess Hyde Former[facility] [address] [place] [address] 5 Jaemel Schmitt [facility] [address] [place] [address] 5 Jameel Schmitt [facility] [address] [place] [address] 5 Jameel Schmitt Benign prostatic hyperplasia without lower urinary tract symptoms N40.0 ; Flank pain R10.9 and Hematuria R31.9 [facility] [address] [place] [address] 5 Jess Hyde [facility] [address] [place] [address] 5 Jameel Schmitt Assessments Encounter Date Diagnosis (ICD Code) Assessment Notes Treatment Notes Treatment Clinical Notes Section Notes 04/01/2025 Abscess of prostate (ICD-10 - N41.2) 12/30/2024 Iron deficiency anemia, unspecified iron deficiency anemia type (ICD-10 - D50.9) 03/24/2025 Abscess of prostate (ICD-10 - N41.2) 1. 44 yo white male with a history of recurrent UTI's, T2DM, nephropathy, neuropathy, and cigarette smoker 2. Admission 02-07-25 with Prostatic abscess, and renal failure -discharged 02-24-25, then was admitted in [facility]. - Requested pt get discharge summary [...] (start date 03-24-25) . Pt notified to [place] Cipro on 03-25-25 @ 945am 7. Gastritis, Peptic ulcer disease, improved on Carafate and Protonix. - Pt doing better on this treatment Labs 02-14-25 W 9.3, Digital Performance Analyst 6.31, CRP 9.79 02-23-25 W 7.6, Digital Performance Analyst 4.34, CRP 3.18 03-06-25; W 4.9, Digital Performance Analyst 4.18,, CRP 3.45, PSA .12, UM WBC U 378 03-24-25 W 5.0, Digital Performance Analyst 3.13, CRP .66 Follow up; PRN repeat labs Rosa Garber 01/27/2025 Current use of insulin (ICD-10 - Z79.4) 04/01/2025 Flank pain (ICD-10 - R10.9) 03/06/2025 Abscess of prostate (ICD-10 - N41.2) 1. 44 yo white male with a history of recurrent UTI's, T2DM, nephropathy, neuropathy, and cigarette smoker 2. Admission 02-07-25 with Prostatic abscess, and renal failure -discharged 02-24-25, then was admitted in [facility]. - Requested pt get discharge summary [...] on this treatment Labs 02-14-25 W 9.3, Digital Performance Analyst 6.31, CRP 9.79 02-23-25 W 7.6, Digital Performance Analyst 4.34, CRP 3.18 Follow up; 1 week labs and UC Rosa Garber 03/06/2025 Renal failure, unspecified chronicity (ICD-10 - N19) 1. 44 yo white male with a history of recurrent UTI's, T2DM, nephropathy, neuropathy, and cigarette smoker 2. Admission 02-07-25 with Prostatic abscess, and renal failure -discharged 02-24-25, then was admitted in [facility]. - Requested pt get discharge summary [...] on this treatment Labs 02-14-25 W 9.3, Digital Performance Analyst 6.31, CRP 9.79 02-23-25 W 7.6, Digital Performance Analyst 4.34, CRP 3.18 Follow up; 1 week labs and UC Rosa Garber 01/30/2025 Acute kidney injury (ICD-10 - N17.9) 01/27/2025 Other specified diabetes mellitus with hyperglycemia [...] a fingerstick blood glucose monitor or the [employer] Sulema 3 cgm daily. The Sulema 3 [...] reviewed. Verbal and written instructions given including [employer] Customer support contact information. Patient is able [...] time spent with patient is 50 minutes 05/20/2025 Cystitis (ICD-10 - N30.90) 03/13/2025 Abscess of prostate (ICD-10 - N41.2) 1. 44 yo white male with a history of recurrent UTI's, T2DM, nephropathy, neuropathy, and cigarette smoker 2. Admission 02-07-25 with Prostatic abscess, and renal failure -discharged 02-24-25, then was admitted in [facility]. - Requested pt get discharge summary [...] BC Neg 6. Antibiotics; Day # 33 03-06-25 Continue Fortaz post-op Day #26 (start date 02-09-25) duration 6 weeks - DC'd Rocephin due to nausea/vomitin g 7. Gastritis, Peptic ulcer disease, improved on Carafate and Protonix. - Pt doing better on this treatment Labs 02-14-25 W 9.3, Digital Performance Analyst 6.31, CRP 9.79 02-23-25 W 7.6, Digital Performance Analyst 4.34, CRP 3.18 03-06-25; W audio visual aide. 4.18, CRP 3.45 Follow up; 1 week labs and UC Scribmonica Kramermons 05/06/2025 Iron deficiency anemia (ICD-10 - D50.9) 04/01/2025 Urinary retention (ICD-10 - R33.9) 04/01/2025 Abscess of prostate (ICD-10 - N41.2) 06/24/2025 Benign prostatic hyperplasia without lower urinary tract symptoms (ICD-10 - N40.0) 06/30/2025 Abscess of prostate (ICD-10 - N41.2) 1. 44 yo white male with a history of recurrent UTI's, T2DM, nephropathy, neuropathy, and cigarette smoker - Prostatic abscess, and renal failure -followed by Dr. Santana (Kidney) 2. Hospitalized in April 2025 for UTI at [facility] (elevated WBC, UC Neg at that time) -advised to get records from [place] -was treated with Cipro 3. Diagnostics; -CT [...] (start date 06-16-25) Labs 06-16-25 W 4.2, Digital Performance Analyst 4.26, CRP <.50, UC Neg 06-24-25 UM WBC 20 Follow up; 4 months Rosa Garber 06/30/2025 Renal failure, unspecified chronicity (ICD-10 - N19) 1. 44 yo white male with a history of recurrent UTI's, T2DM, nephropathy, neuropathy, and cigarette smoker - Prostatic abscess, and renal failure -followed by Dr. Santana (Kidney) 2. Hospitalized in April 2025 for UTI at [facility] (elevated WBC, UC Neg at that time) -advised to get records from [place] -was treated with Cipro 3. Diagnostics; -CT [...] (start date 06-16-25) Labs 06-16-25 W 4.2, Digital Performance Analyst 4.26, CRP <.50, UC Neg 06-24-25 UM WBC 20 Follow up; 4 months Serafinmonica Stringerlevon Garber 01/21/2025 Iron deficiency anemia, unspecified iron deficiency anemia type (ICD-10 - D50.9) Proceed with diagnostic EGD and colonoscopy for iron deficiency anemia today. 06/24/2025 Chronic cystitis (ICD-10 - N30.20) 06/24/2025 Benign prostatic hyperplasia with lower urinary tract symptoms, symptom details unspecified (ICD-10 - N40.1) 06/16/2025 Abscess of prostate (ICD-10 - N41.2) 1. 44 yo white male with a history of recurrent UTI's, T2DM, nephropathy, neuropathy, and cigarette smoker -02-07-25 with Prostatic abscess, and renal failure -no catheter now, no HD 2. Hospitalized in April 2025 for UTI at [facility] (elevated WBC, UC Neg at that time) -advised to get records from [place] -was treated with Cipro 3. Diagnostics; -CT [...] culture; E coli (R:amp, S: Fortaz, cipro) 05-29-25; W 4.9, Digital Performance Analyst 4.18,, CRP 3.45, PSA .12, UM WBC U 378 03-24-25 W 5.0, Digital Performance Analyst 3.13, CRP .66 Follow up; 2 weeks UC,UM,CBC,CRP, Comp Scribmonica Leonora Kramermons 06/16/2025 Renal failure, unspecified chronicity (ICD-10 - N19) 1. 44 yo white male with a history of recurrent UTI's, T2DM, nephropathy, neuropathy, and cigarette smoker -02-07-25 with Prostatic abscess, and renal failure -no catheter now, no HD 2. Hospitalized in April 2025 for UTI at [facility] (elevated WBC, UC Neg at that time) -advised to get records from [place] -was treated with Cipro 3. Diagnostics; -CT [...] (R:amp, S: Fortaz, cipro) 03-06-25; W 4.9, Digital Performance Analyst 4.18,, CRP 3.45, PSA .12, UM WBC U 378 03-24-25 W 5.0, Digital Performance Analyst 3.13, CRP .66 Follow up; 2 weeks UC,UM,CBC,CRP, Comp Scribe Leonora Armentas 05/13/2025 Benign prostatic hyperplasia with lower urinary tract symptoms, symptom details unspecified (ICD-10 - N40.1) 05/13/2025 Chronic UTI (ICD-10 - N39.0) 05/13/2025 Hypotonic bladder (ICD-10 - N31.2) 06/24/2025 Hypotonic bladder (ICD-10 - N31.2) 05/20/2025 Acute cystitis without hematuria (ICD-10 - N30.00) 06/24/2025 Flank pain (ICD-10 - R10.9) 04/01/2025 Flank pain (ICD-10 - R10.9) 04/01/2025 Hematuria, unspecified type (ICD-10 - R31.9) 03/13/2025 Renal failure, unspecified chronicity (ICD-10 - N19) 1. 44 yo white male with a history of recurrent UTI's, T2DM, nephropathy, neuropathy, and cigarette smoker 2. Admission 02-07-25 with Prostatic abscess, and renal failure -discharged 02-24-25, then was admitted in [facility]. - Requested pt get discharge summary [...] on this treatment Labs 02-14-25 W 9.3, Digital Performance Analyst 6.31, CRP 9.79 02-23-25 W 7.6, Digital Performance Analyst 4.34, CRP 3.18 03-06-25; W audio visual aide. 4.18, CRP 3.45 Follow up; 1 week labs and UC Rosa Garber 05/06/2025 Hyperphosphatemia (ICD-10 - E83.39) 01/27/2025 Diabetes education, encounter for (ICD-10 - Z71.89) 04/01/2025 Incomplete bladder emptying (ICD-10 - R33.9) 03/24/2025 Renal failure, unspecified chronicity (ICD-10 - N19) 1. 44 yo white male with a history of recurrent UTI's, T2DM, nephropathy, neuropathy, and cigarette smoker 2. Admission 02-07-25 with Prostatic abscess, and renal failure -discharged 02-24-25, then was admitted in [facility]. - Requested pt get discharge summary [...] resection/unro ofing of the prostatic abscess . 5 UC E. coli (R: amp, S: [...] on this treatment Labs 02-14-25 W 9.3, Digital Performance Analyst 6.31, CRP 9.79 02-23-25 W 7.6, Digital Performance Analyst 4.34, CRP 3.18 03-06-25; W 4.9, Digital Performance Analyst 4.18,, CRP 3.45, PSA .12, UM WBC U 378 03-24-25 W 5.0, Digital Performance Analyst 3.13, CRP .66 Follow up; PRN repeat labs Rosa Garber 01/27/2025 Uses self-applied continuous glucose monitoring device (ICD-10 - Z97.8) 05/06/2025 Hyperparathyroidism (ICD-10 - E21.3) 06/24/2025 Hematuria (ICD-10 - R31.9) 05/06/2025 RENNY (acute kidney injury) (ICD-10 - N17.9) 04/01/2025 Unspecified symptoms and signs involving the genitourinary system (ICD-10 - R39.9) 01/27/2025 At risk for hypoglycemia (ICD-10 - Z91.89) 04/01/2025 Other Culture urine. 2 months wtih [...] Test Test Name Order Date Culture Urine [id number] 06/16/2025 Basic Metabolic Panel (BMP) 84857 2024 CBC w\ Auto Diff 56439 06/16/2025 Comprehensive Metabolic Panel (CMP) 8005 3 06/16/2025 Magnesium (B) 48407 05/06/2025 Creatinine (U) 25233 05/06/2025 Microscopic Urine 05197 06/16/2025 CRP 33769 06/16/2025 Diagnostic Colonoscopy-48037 12/30/2024 EGD, Upper GI Diagnostic-18141 Future Test Test Name Order Date Basic Metabolic Panel (BMP) 25822 2024 Ferritin 95987 05/06/2025 Hemoglobin 68287 05/06/2025 Iron Binding Capacity Total 07020 2024 Iron Level 29438 05/06/2025 Phosphorus (B) 56179 05/06/2025 Protein (U) Random 02529 05/06/2025 Uric Acid (B) 42151 05/06/2025 Vitamin D Total (B) 19570 05/06/2025 UA Reflex Micro, Reflex Cult 01070, 8101 5, 28011 05/06/2025 PTH Intact 04900 05/06/2025 % Iron Saturation (Fe & TIBC)--79631,835 50 05/06/2025 Next Appt Details Provider Name:Jameel freed, 09/23/2025 10:00:00 AM, [address], [place], [address], Provider Name:Jess sandoval, 09/29/2025 10:20:00 AM, [address] [place] [address] , [address], [place], [address], Provider Name:Saurabh freed, 10/30/2025 01:00:00 PM, [address] [place] [address] Derrick, [address], [place], [address], Provider Name:Chang García, 01/05/2026 09:40:00 AM, [address] [place], [place] [address], [place], [address], Insurance Providers Payer Name Payer Address Payer Phone Subscriber Number Group Number Insured Name Patient Relationship to Insured Coverage Start Date Coverage End Date Web TPA Nguyen [address] [place] [address] [id number] Shanel Berry Self - patient is the insured [employer] [address] [place] [phone] [id number] Shanel Berry Self - patient is the insured Medical (General) History Medical History History ICD Code Diabetes with DKA Chicken Pox anemia bladder infections blood transfusion Back Trouble High Blood Pressure kidney stones Anxiety UTI Surgical History Surgery Date(Month/Year) vasectomy TURP Prostate surgery Hospitalization History Reason Date(Month/Year) DKA 2024 ICU for UTI 2024
--- OUTSIDE RECORDS SUMMARY | 2025-07-10 05:55 | XMS_ITS | Clinical Summary ---
Author Organization [facility] Facility Address [address] [address] Care Team Providers Care Software Configuration Specialist Name Role Phone Unavailable Primary Care Provider [...] complete this topic Insurance [id number] [place] [address] [facility] [employer] 1,2,3 ([employer]AC[employer])
[2025-07-10 06:05] VITALS: BP 212/107; PULSE 85; RESP 16; TEMP 36.6; O2SAT 99
[2025-07-10 06:33] LABS: Hematocrit 28.7 % (37-53); Hemoglobin 9.50 g/dL (11.27-16.99); Mean Corpuscular HGB Conc 33.1 g/dL (30-55); Mean Corpuscular Hemoglobin 27.1 pg (27-33); Mean Corpuscular Volume 82.0 fl (82-101); Nucleated Red Blood Cells % 0 %; Platelet Count 150 10^3/cmm (157-399); Red Blood Count 3.50 10^6/uL (3.85-5.65); White Blood Count 5.90 10^3/uL (3.29-11.43)
[2025-07-10 06:55] VITALS: BP 192/101
--- NOTE | 2025-07-10 07:08 | ED_ITS ---
HPI - Back Pain/Injury 2 General: Chief Complaint: Back Pain/Injury Stated Complaint: Left Lower Back Pain Time Seen by Provider: 07/10/25 06:11 History of Present Illness: 44-year-old male presents emergency room complaining of left-sided lower back pain. He states it began early this morning around 330. We had seen him a week ago at that time he had a UTI had some abnormalities on his CT suggestive of pyelonephritis he had more flank pain at that time and he was started on cefdinir. He chronically takes his Cipro. Patient has stage IV CKD. He denies any fever sweats chills refers most of the pain to the left iliac crest left SI joint region. No vomiting no diarrhea. Associated symptoms: Deny abdominal pain, chills, dysuria, fever(s) or urinary urgency Related Data Home Medications ?Medication ?Instructions ?Recorded ?Confirmed glucagon 1 mg/0.2 mL subcutaneous 1 mg SUBCUT PRN PRN low blood sugar 02/19/25 07/03/25 syringe (Suitest IP Group PFS 2-Pack) insulin aspart U-100 100 unit/mL See Rx Instructions . Route .COMPLEX 02/19/25 07/03/25 (3 mL) subcutaneous pen insulin glargine 100 unit/mL (3 22 unit SUBCUT DAILY 0 02/19/25 07/03/25 mL) subcutaneous pen (Lantus Solostar U-100 Insulin) metformin 500 mg tablet 500 mg PO BID 02/19/2507/03 metoclopramide HCl 5 mg tablet 5 mg PO TID PRN Nausea And Vomiting 02/19/25 07/03/25 pantoprazole 40 mg tablet,delayed 40 mg PO QAM 07/03/25 release ferrous gluconate 324 mg (38 mg 324 mg PO BID 03/31/25 07/03/25 iron) tablet ondansetron HCl 8 mg tablet 8 mg PO Q8H PRN Nausea And Vomiting 03/31/25 07/03/25 sucralfate 1 gram tablet 1 g PO BID 03/31/25 07/03/25 ciprofloxacin HCl 500 mg tablet 500 mg PO .3XWEEKLY 07/03/25 Held on 07/03/25. Instructions: Resume on 07/14/25. Hold x 10 days rosuvastatin 10 mg tablet 10 mg PO DAILY 07/03/2506/10 Previous Rx's ?Medication ?Instructions ?Recorded prochlorperazine maleate 10 mg 10 mg PO Q8H PRN nausea and 02/19/25 tablet (Compazine) vomiting #20 tabs oxycodone-acetaminophen 5 mg-325 1 tab PO Q8H PRN pain #10 tabs 06/04/25 mg tablet (Percocet) hydrocodone 5 mg-acetaminophen 325 1 tab PO Q6H PRN pa in #15 tabs 07/03/25 mg tablet methylprednisolone 4 mg tablets in See Rx Instructions PO .COMPLEX 07/10/25 a dose pack (Medrol (Nathaniel)) #21 ea tizanidine 4 mg tablet 4 mg PO Q6H PRN muscle spast icity 07/10/25 #20 tabs Allergies Allergy/AdvReac Type Severity Reaction Status Date / Time No Known Allergies Allergy Verified 06/12/25 14:00 Review of Systems 2 Const: Denies: fever(s) or chills Card: Denies: chest pain Resp: Denies: dyspnea GI: Denies: abdominal pain : Denies: dysuria, urinary frequency or urinary urgency Musc: Reports: back pain; Denies: neck pain Skin/Breast: Denies: rash PFSH ED 2 PFSH: Social History Smoking and tobacco/nicotine status: current some day tobacco/nicotine user (vape) Alcohol intake: never Physical Exam 2 Const: COMMON NORMALS: no acute distress GENERAL APPEARANCE: cooperative and comfortable ORIENTATION/CONSCIOUSNESS: Yes awake, Yes oriented to person, Yes oriented to place and Yes oriented to time HENMT: COMMON NORMALS: normocephalic, atraumatic and hearing grossly normal bilaterally HEAD & SCALP: normocephalic and atraumatic Resp: COMMON NORMALS: normal respiratory effort, No retractions, No use of accessory muscles and clear to auscultation bilaterally AUSCULTATION: clear to auscultation bilaterally Cardio: COMMON NORMALS: regular rate, regular rhythm and No murmurs present (Cardio) RATE: regular rate RHYTHM: regular rhythm GI: COMMON NORMALS: Soft to palpation and No hepatosplenomegaly present A USCULTATION: Yes normoactive bowel sounds PALPATION: Yes Soft to palpation, No Tenderness to palpation present (GI), No Guarding due to palpation present (GI) and Yes No hepatosplenomegaly present Extremity: COMMON NORMALS: normal to inspection, capillary refill normal, no clubbing, cyanosis or edema, no calf tenderness and no pedal edema Neuro: SENSORIUM/ORIENTATION: Yes oriented to person, Yes oriented to place and Yes oriented to time Skin: COMMON NORMALS: no rashes or lesions noted GENERAL SKIN EXAM: no rashes or lesions noted Course 2 Vital Signs: Vital signs: Vital Signs Temperature 97.9 F 07/10/25 06:05 Pulse Rate 96 07/10/25 10:19 Respiratory Rate 16 07/10/25 06:05 Blood Pressure 153/111 07/10/25 10:19 Pulse Oximetry 99 07/10/25 10:19 Oxygen Delivery Me thod Room Air 07/10/25 06:05 MDM - Back Pain/Injury Medical Decision Making No red flag symptoms at this time. No imaging done. Present musculoskeletal low back pain. He was seen previously and started him on Cipro he had some white blood cells in the urine he states he is completed that. Repeat urine today shows red blood cells which are chronic and 5-10 white blood cells. He has chronic changes in his CT he had a CT done on 925 that we reviewed which showed a lot of chronic changes and hydronephrosis which he has had previously. Interestingly urine culture from that visit did not grow anything. At this point recommend he hold off on any further antibiotics. I think he does have some chronic hematuria. He needs to follow-up with urology should set this up to his primary care doctor. For his back pain we will put him on a Medrol dose pack taper also start him on tizanidine. Recommend that he follow-up with his primary care doctor regarding his chronic hematuria for urology appointment. Medical Records I reviewed the patient's medical records. Labs I reviewed the patient's lab results. 07/10/25 06:29 07/10/25 06: Laboratory Results WBC 5.90 10^3/uL (3.29-11.43) 07/10/25 06: RBC 3.50 10^6/uL (3.85-5.65) L 07/10/25 06: Hgb 9.50 g/dL (11.27-16.99) L 07/10/25: Hct 28.7 % (37-53) L 07/10/25: MCV 82.0 fl (82-101) 07/10/25 06: MCH 27.1 pg (27-33) 07/10/25 06: MCHC 33.1 g/dL (30-55) 07/10/25 06: RDW 14.7 % (12.1-15.1) 07/10/25: Plt Count 150 10^3/cmm (157-399) L 07/10/25: MPV 10.2 fL (7.4-10.4) 07/10/25: Neut % (Auto) 73.2 % 07/10/25: Lymph % (Auto) 18.5 % 07/10/25: [place] % (Auto) 4.6 % 07/10/25: Eos % (Auto) 3.1 % 07/10/25 Baso % (Auto) 0.3 % 07/10/25: Neut # (Auto) 4.32 10^3/uL (1.8-7.7) 07/10/25 06: Lymph # (Auto) 1.1 10^3/uL (0.8-4.8) 07/10/25: [place] # (Auto) 0.3 10^3/uL (0.2-0.9) 07/10/25: Eos # (Auto) 0.2 10^3/uL (0.0-0.8) 07/10/25: Baso # (Auto) 0.0 10^3/uL (0.0-0.1) 07/10/25: Nucleated RBC % (auto) 0 % 07/10/25 Nucleated RBCs # 0.0 /100WBC 07/10/25: Sodium 139 mmol/L (136-145) 07/10/25: Potassium 4.9 mmol/L (3.5-5.1) 07/10/25: Chloride 103 mmol/L (98-107) 07/10/25: Carbon Dioxide 20 mmol/L (22-29) L 10/02/25 06:29 Anion Gap 20.9 (5-19) H 07/10/25 06: BUN 58 mg/dL (6-20) H 07/10/25 06: Creatinine 5.4 mg/dL (0.7-1.2) H 07/10/25 06:29 GFR Calculation 11.6 mL/min (90-130) L 07/10/25 06: Glucose 172 mg/dL (65-115) H 07/10/25 06: Calculated Osmolality 308 mOsm/kg (285-295) H 07/10/25 06: Calcium 9.3 mg/dL (8.5-10.5) 07/10/25 06: Total Bilirubin 0.2 mg/dL (0.15-1.2) 07/10/25 06: AST 15 U/L (0-40) 07/10/25 06: ALT 20 U/L (0-41) 07/10/25 06: Alkaline Phosphatase 81 U/L (40-130) 07/10/25 06:29 Total Protein 7.9 g/dL (6.6-8.7) 07/10/25 06: Albumin 4.5 g/dL (3.5-5.2) 07/10/25 06: Globulin 3.4 g/dL (1.3-4.6) 07/10/25 06: Lipase 32 U/L (13-60) 07/10/25 06:29 Urine Color Red (Yellow) A 07/10/25 07:36 Urine Appearance Cloudy (CLEAR) A 07/10/25 07:36 Urine pH 7.0 (5-7) 07/10/25 07:36 Ur Specific [place] 1.009 (1.005-1.030) 07/10/25 07:36 Urine Protein 2+ (Negative) A 07/10/25 07:36 Urine Glucose (UA) 1+ (Normal) H 07/10/25 07:36 Urine Ketones Negative (Negative) 07/10/25 07:36 Urine Blood 3+ (Negative) A 07/10/25 07:36 Urine Nitrate Negative (Negative) 07/10/25 07:36 Urine Bilirubin Negative (Negative) 07/10/25 07:36 Urine Urobilinogen 0.2 mg/dL (Negative) 07/10/25 07:36 Ur Leukocyte Esterase 1+ (Negative) A 07/10/25 07:36 Urine RBC Too numerous to cnt /hpf (0-2) H 07/10/25 07:36 Urine WBC 5-10 /hpf (0-5) H 07/10/25 07:36 Ur Squamous Epith Cells 0-4 /hpf (0-5) H 07/10/25 07:36 Amorphous Sediment Not Reportable 07/10/25 07:36 Urine Bacteria Trace /hpf (NONE) 07/10/25 07:36 No radiology studies performed this visit Discharge Plan Discharge Patient Disposition: Home Clinical Impression: Back pain Condition: Stable Prescriptions: New tizanidine 4 mg tablet 4 mg PO Q6H PRN (Reason: muscle spasticity) Qty: 20 0RF Rx Instructions: do not exceed 3 doses per 24 hrs methylprednisolone [Medrol (Nathaniel)] 4 mg tablets,dose pack See Rx Instructions .ROUTE .COMPLEX Qty: 21 0RF Rx Instructions: orally per package directions No Action ondansetron HCl 8 mg tablet 8 mg PO Q8H PRN (Reason: Nausea And Vomiting) sucralfate 1 gram tablet 1 g PO BID ferrous gluconate 324 mg (38 mg iron) tablet 324 mg PO BID metformin 500 mg tablet 500 mg PO BID metoclopramide HCl 5 mg tablet 5 mg PO TID PRN (Reason: Nausea And Vomiting) pantoprazole 40 mg tablet,delayed release (DR/EC) 40 mg PO QAM insulin aspart U-100 100 unit/mL (3 mL) insulin pen See Rx Instructions .ROUTE .COMPLEX Rx Instructions: Inject subcutaneously per sliding scale 3 times daily before meals. insulin glargine [Lantus Solostar U-100 Insulin] 100 unit/mL (3 mL) insulin pen 22 unit SUBCUT DAILY Gvoke PFS 2-Pack Syringe 1 mg/0.2 mL syringe 1 mg SUBCUT PRN PRN (Reason: low blood sugar) prochlorperazine maleate [Compazine] 10 mg tablet 10 mg PO Q8H PRN (Reason: nausea and vomiting) Qty: 20 0RF oxycodone-acetaminophen [Percocet] 5-325 mg tablet 1 tab PO Q8H PRN (Reason: pain) Qty: 10 0RF ciprofloxacin HCl 500 mg tablet 500 mg PO .3XWEEKLY rosuvastatin 10 mg Tablet 10 mg PO DAILY hydrocodone-acetaminophen 5-325 mg tablet 1 tab PO Q6H PRN (Reason: pain) Qty: 15 0RF Discharge Orders: Discharge ED (Routine); Ordered 07/10/25 Ordered By: Odilon Damon Referrals: Sil House MD [Primary Care Provider, [facility]] Discharge Diet: Usual diet Discharge Activity: Increase activity as tolerated Patient Instructions: Opioid Safety, Pain Management, Patient Portal & [facility] Instructions Activity Restrictions/Additional Instructions: Thank you for choosing [facility] for your healthcare needs today. It is very important that you follow up as instructed or that you return to the Emergency Department should you have concerns or if your condition changes or worsens in any way. Emergency department visits are focused on emergent conditions, in some cases you may require further evaluation on an outpatient basis. You were seen in the emergency room with complaints of lower back pain. We reviewed your visit from a week ago the culture done at that time did not show any bacteria in your urine. On exam today this seems more musculoskeletal in nature has responded well to pain medications we will discharge you home on steroid taper and tizanidine to use as needed. Follow-up with your primary care doctor. Your kidney function continues to be elevated but it is in the same range as it has been in the past. (Please note that included in your discharge packet is information concerning opioid safety and pain management. This information is given to all patients were discharged from the ER regardless of their discharge diagnosis or the medicines they usually take or are prescribed.) Print Language: [place] Coding Level of Care Code ED Cryptologic Technician for Jasvir Ramos
[2025-07-10 07:26] LABS: Alanine Aminotransferase 20 U/L (0-41); Albumin Level 4.5 g/dL (3.5-5.2); Alkaline Phosphatase 81 U/L (40-130); Anion Gap 20.9 (5-19); Aspartate Amino Transferase 15 U/L (0-40); Blood Urea Nitrogen 58 mg/dL (6-20); Calcium 9.3 mg/dL (8.5-10.5); Carbon Dioxide 20 mmol/L (22-29); Chloride 103 mmol/L (98-107); Creatinine Clr Calc Pharmacy 19.5280; Globulin 3.4 g/dL (1.3-4.6); Glucose 172 mg/dL (65-115); Lipase 32 U/L (13-60); Osmolality Calculated 308 mOsm/kg (285-295); Potassium 4.9 mmol/L (3.5-5.1); Sodium 139 mmol/L (136-145); Total Protein 7.9 g/dL (6.6-8.7)
[2025-07-10 07:43] LABS: Glucose Urine UA 1+ (Normal); Nitrate Urine Negative (Negative); Specific Gravity, Urine 1.009 (1.005-1.030)
[2025-07-10] MEDS: morphine 4 mg/mL SDV 1 mL 2 MG IVP (08:00)
[2025-07-10 08:03] LABS: UA Manual Slide Review YES
[2025-07-10 08:05] LABS: Add Urine Microscopic? YES
[2025-07-10 09:19] VITALS: BP 153/103; PULSE 81; O2SAT 96
[2025-07-10 10:19] VITALS: BP 153/111; PULSE 96; O2SAT 99
== END 2025-07-10 10:20 | disposition home or self-care (01) ==
PROVIDERS: Emergency Provider Family Medicine; PCP Family Medicine
DX: M54.9 Dorsalgia, unspecified (principal); Z79.84 Long term (current) use of oral hypoglycemic drugs; Z79.4 Long term (current) use of insulin; F17.290 Nicotine dependence, other tobacco product, uncomplicated
CPT/HCPCS: 36415; 80053; 81001; 83690; 85025; 87086; 96374; 99284; J2270

== ENCOUNTER 2025-07-17 14:35 | Oncology outpatient (recurring) (ONCR) | payer OTHER, SELFPAY | END 2025-08-08 23:59 | disposition home or self-care (01) | PROVIDERS: PCP Family Medicine; Visit Provider Internal Medicine | DX: N18.9 Chronic kidney disease, unspecified (principal); N17.9 Acute kidney failure, unspecified; D64.9 Anemia, unspecified; F17.200 Nicotine dependence, unspecified, uncomplicated; E11.9 Type 2 diabetes mellitus without complications | CPT/HCPCS: 99213 ==

== ENCOUNTER 2025-08-12 16:27 | Emergency (ER) | payer OTHER, SELFPAY ==
--- OUTSIDE RECORDS SUMMARY | 2025-05-13 08:40 | XMS_ITS ---
Author Organization [facility] Address [address] [place] [address] Care Team Providers Care Form Building Supervisor Name Role Phone Sil Gatica MD Primary Care Provider UnavailJess Russ Unavailable [phone] Jameel Schmitt Unavailable [phone] REASON FOR VISIT Next avail,cysto per Dr. Schmitt Encounters Encounter Location Date Provider Diagnosis [facility] [address] [place] [address] 05/13/2025 Jameel Schmitt Plan Of Treatment Next Appt Details Provider Name:Jameel freed, 09/23/2025 10:00:00 AM, [address], [place], [address], Provider Name:Jess sandoval, 09/29/2025 10:20:00 AM, [address] [place] [address] [address], [place], [address], Provider Name:Saurabh freed, 10/30/2025 01:00:00 PM, [address] [place] [address] [address], [place], [address], Provider Name:Chang García, 01/05/2026 09:40:00 AM, [address] [place] [address] [address], [place], [place], [address], Progress Notes * Robert MARTINEZ RDOB:1980 (44 yo M)Acc No.[id number]:05/13/2025 Patient: Robert King Provider: Kianna Schmitt MD :1980 A ge:44 Y S ex:Male Date:05/13/2025 Address:[address] [place] [address], [address] Pcp:Sil Gatica MD Subjective: * Chief Complaints: * N ext avail,cysto per Dr. Schmitt * Electronic signature of Montez Schmitt MD on 08/12/2025 at 04:35 PM INSURANCE PRODUCER Sign off status: Pending * Provider: Kianna Schmitt MD Date: 0 05/13/2025 Generated for José Miguel burgess/Horacio/eTransmitting on: 1 10/12/2024 04:35 PM INSURANCE PRODUCER
--- OUTSIDE RECORDS SUMMARY | 2025-05-22 08:00 | XMS_ITS ---
Author Organization [facility] Address [address] [place] [address] Care Team Providers Care Forecast Analyst Name Role Phone Sil Gatica MD Primary Care Provider UnavailJess Russ Unavailable [phone] Jameel Schmitt Unavailable [phone] REASON FOR VISIT UDS Encounters Encounter Location Date Provider Diagnosis [facility] [address] [place] [address] 05/22/2025 Jameel Schmitt Plan Of Treatment Next Appt Details Provider Name:Jameel Tony y, 09/23/2025 10:00:00 AM, [address], [address], [place], [address], Provider Name:Jess sandoval, 09/29/2025 10:20:00 AM, [address] [place] [address] [address], [place], [address], Provider Name:Saurabh freed, 10/30/2025 01:00:00 PM, [address] [place] [address] [address], [place], [address], Provider Name:Chang García, 01/05/2026 09:40:00 AM, [address] [place] [address] [address], [place], [address], Progress Notes * Robert BERRY RDOB:1980 (44 yo M)Acc No.[id number]:05/22/2025 Progress Note Patient: Robert King Provider: Kianna Schmitt MD :1980 A ge:44 Y S ex:Male Date:05/22/2025 Address:[address] [place] [address], [id number] Pcp:Sil Gatica MD Subjective: * Chief Complaints: * U DS * Electronic signature of Montez Schmitt MD on 08/12/2025 at 04:35 PM FUR POLISHER Sign off status: Pending * Provider: Kianna Schmitt MD Date: 0 05/22/2025 Generated for José Miguel burgess/Horacio/Kellenitting on: 1 10/12/2024 04:35 PM FUR POLISHER
--- OUTSIDE RECORDS SUMMARY | 2025-06-03 02:00 | XMS_ITS ---
Author Organization [facility] Address [address] [place] [address] Care Team Providers Care Survey Research Center Director Name Role Phone Sil Gatica MD Primary Care Provider Unavaila Jess Moreau Unavailable [phone] Jameel Schmitt Unavailable [phone] REASON FOR VISIT 2m f/u w Dr Keshia imlian ua and pvr Encounters Encounter Location Date Provider Diagnosis [facility] [address] [place] [address] 06/03/2025 Jameel Schmitt Plan Of Treatment Next Appt Details Provider Name:Jameel freed, 09/23/2025 10:00:00 AM, [address], [place], [address], Provider Name:Jess sandoval, 09/29/2025 10:20:00 AM, [address] [place] [address] [address], [place], [address], Provider Name:Saurabh freed, 10/30/2025 01:00:00 PM, [address] [place] [address] [address], [place], [address], Provider Name:Chang García, 01/05/2026 09:40:00 AM, [address] [place] [address] [address], [place], [address], Progress Notes * Robert MARTINEZ RDOB:1980 (44 yo M)Acc No.[id number]:06/03/2025 Progress Notes Patient: Robert King Provider: Kianna Schmitt MD :1980 A ge:44 Y S ex:Male Date:06/03/2025 Address:[address] [place] [address], [address] Pcp:Sil Gatica MD Subjective: * Chief Complaints: * 2 m f/u w Dr Schmitt w ua and pvr * Electronic signature of Montez Schmitt MD on 08/12/2025 at 04:35 PM [employer] Sign off status: Pending * Provider: Kianna Schmitt MD Date: 0 06/03/2025 Generated for José Miguel burgess/Horacio/eTdeniasmitting on: 1 10/12/2024 04:35 PM [employer]
--- OUTSIDE RECORDS SUMMARY | 2025-06-03 06:30 | XMS_ITS ---
Author Organization [facility] Address [address] [place] [address] Care Team Providers Care Natural Resources Extension Educator Name Role Phone Sil Gatica MD Primary Care Provider UnavailJess Russ Unavailable [phone] Jameel Schmitt Unavailable [phone] Saurabh Mendez JR Unavailable [phone] REASON FOR VISIT [id number] Referral - Chronic UTI Medications Medication SIG (Take, Route, Frequency, Duration) Notes Start Date End Date Status metFORMIN HCl 500 MG Tablet 1 tablet with a meal Orally Twice daily Not-Taking Tylenol Extra Strength 500 MG Tablet 1 tablet as needed Orally every 6 hrs Active Zetia 10 MG Tablet 1 tablet Orally Once a day Active Gvoke HypoPen 2-Pack 1 MG/0.2ML Solution Auto-injector as directed Subcutaneous PRN; Duration: 365 days 50% discount 01/27/2025 01/27/2027 Not-Taking Iron 325 (65 Fe) MG Tablet 1 tablet Orally Twice daily Not-Taking NIFEdipine 60 MG Tablet Extended Release as directed Orally Active NovoLOG FlexPen 100 UNIT/ML Solution Pen-injector 10 Units with meals Subcutaneous TID Active Ondansetron HCl 4 MG Tablet 1 tablet Orally Once a day Active Prochlorperazine 10 MG Tablet 1 tablet as needed Orally Three times a day Active traMADol HCl 50 MG Tablet 1 tablet as needed Orally Once a day Active Lantus SoloStar 100 UNIT/ML Solution Pen-injector Inject up to 50 Units Subcutaneous Daily; Duration: 30 days 50% discount Active Protonix 40 MG Tablet Delayed Release 1 tablet Orally Once a day Not-Taking Carafate 1 GM Tablet 1 tablet on an empty stomach Orally Once daily Active cefTRIAXone Sodium 2 GM Solution Reconstituted as directed Injection Active Ferrous Gluconate 324 (38 Fe) MG Tablet 1 tablet Orally Three times a Week Active Encounters Encounter Location Date Provider Diagnosis [facility] Internal Medicine & Infectious Disease [address] [place] [address], [place] [address] 06/03/2025 Saurabhanat Reyesy Abscess of prostate N41.2 and Renal failure, unspecified chronicity N19 Assessments Encounter Date Diagnosis (ICD Code) Assessment Notes Treatment Notes Treatment Clinical Notes Section Notes 06/03/2025 Abscess of prostate (ICD-10 - N41.2) 1. 44 yo white male with a history of recurrent UTI's, T2DM, nephropathy, neuropathy, and cigarette smoker 2. Admission 02-07-25 with Prostatic abscess, and renal failure -discharged 02-24-25, then was admitted in [facility]. - Requested pt get discharge summary from [...] thickening or inflammation. Stable mild splenomegaly. 4. 5; RESECTION PROSTATE TRANSURETHRAL, transurethral resection/unroofi ng of the prostatic abscess . 02-08-25 UC [...] (start date 03-24-25) . Pt notified to [place] Cipro on 03-25-25 7. Gastritis, Peptic ulcer disease, improved on Carafate and Protonix. - Pt doing better on this treatment Labs 02-23-25 W 7.6, Computer Science Instructor 4.34, CRP 3.18 03-06-25; W 4.9, Computer Science Instructor 4.18,, CRP 3.45, PSA .12, UM WBC U 378 03-24-25 W 5.0, Computer Science Instructor 3.13, CRP .66 05-20-25 UC Neg Follow up; Rosa Garber 06/03/2025 Renal failure, unspecified chronicity (ICD-10 - N19) 1. 44 yo white male with a history of recurrent UTI's, T2DM, nephropathy, neuropathy, and cigarette smoker 2. Admission 02-07-25 with Prostatic abscess, and renal failure -discharged 02-24-25, then was admitted in [facility]. - Requested pt get discharge summary from [...] splenomegaly. 4. 02-08-25; RESECTION PROSTATE TRANSURETHRAL, transurethral resection/unroofi ng of the prostatic abscess . 02-08-25 UC [...] (start date 03-24-25) . Pt notified to DC Cipro on 03-25-25 7. Gastritis, Peptic ulcer disease, improved on Carafate and Protonix. - Pt doing better on this treatment Labs 02-23-25 W 7.6, Computer Science Instructor 4.34, CRP 3.18 03-06-25; W 4.9, Computer Science Instructor 4.18,, CRP 3.45, PSA .12, UM WBC U 378 03-24-25 W 5.0, Computer Science Instructor 3.13, CRP .66 05-20-25 UC Neg Follow up; Rosa Garber Plan Of Treatment Next Appt Details Provider Name:Jameel freed, 09/23/2025 10:00:00 AM, [address] , [address], [place], [address], Provider Name:Jess sandoval, 09/29/2025 10:20:00 AM, [address] [place] [address] , [facility] [address], [place], [address], Provider Name:Saurabh freed, 10/30/2025 01:00:00 PM, [address] [place] [address] [address], [place], [address], Provider Name:Chang García, 01/05/2026 09:40:00 AM, [address] [place] [address] , [address], [place], [address], History and Physical Notes * HPI (History of Present Illness) Category Sub-Category Detail Notes Category Not es Nursing Initial Assessment HFU 03-06-2025 (inhouse consult note from 02-23-25); The patient is a 44 yo white male with a history of recurrenty UTI's, T2DM, nephropathy, neuropathy, and cigarette smoker1-2 weeks ago with Proostatic abscess, and renal failure. CT has been done and has a 3 cm abscess noted within the prostate.02-08-25; RESECTION PROSTATE TRANSURETHRAL, transurethral resection/unroofing of the prostatic abscessUC x2 with E coli that is very sensitiveRF's include poorly controlled DM (hyperglycemia), renal failure, and BPH-12-31 UC E. coli (R: amp, S: fortaz, cipro);02-07-25 Urine culture; E coli (R:amp, S: Fortaz, cipro)Dc home on Rocephin, this should be post-op day #15. duration 4-6 weeks.he has been having intractable nausea. 03-06-25; feeling much better, daily feeling better 03-13-25; fu on abscess 03-24-25;Feeling better today 06-03-25; Progress Notes * Elizabeth MARTINEZd RDOB:1980 (44 yo M)Acc No.[id number]:06/03/2025 Progress Notes Patient: Robert King Provider: Hamilton Mendez MD :1980 A ge:44 Y S ex:Male Date:06/03/2025 Address:[address] [place] [address], [address] Pcp:Sil Gatica MD Subjective: * Chief Complaints: * [phone] [id number] Referral - Chronic UTI * HPI: N luising Initial Assessment: HFU 03-06-2025 (inhouse consult note from 02-23-25);The patient is a 44 yo white male with a history of recurrenty UTI's, T2DM, nephropathy, neuropathy, and cigarette smoker1-2 weeks ago with Proostatic abscess, and renal failure. CT has been done and has a 3 cm abscess noted within the prostate.02-08-25; RESECTION PROSTATE TRANSURETHRAL, transurethral resection/unroofing of the prostatic abscessUC x2 with E coli that is very sensitiveRF's include poorly controlled DM (hyperglycemia), renal failure, and BPH-12-31 UC E. coli (R: amp, S: fortaz, cipro);02-07-25 Urine culture; E coli (R:amp, S: Fortaz, cipro)Dc home on Rocephin, this should be post-op day #15. duration 4-6 weeks.he has been having intractable nausea. 03-06-25; feeling much better, daily feeling better 03-13-25; fu on abscess 03-24-25;Feeling better today 06-03-25;. * Medications: T akingCarafate 1 GM Tablet 1 tablet on an empty stomach Orally Once daily cefTRIAXone Sodium 2 GM Solution Reconstituted as directed Injection Ferrous Gluconate 324 (38 Fe) MG Tablet 1 tablet Orally Three times a Week Lantus SoloStar 100 UNIT/ML Solution Pen-injector Inject up to 50 Units Subcutaneous Daily , Notes to Pharmacist: 50% discountNIFEdipine 60 MG Tablet Extended Release as directed Orally NovoLOG FlexPen 100 UNIT/ML Solution Pen-injector 10 Units with meals Subcutaneous TID Ondansetron HCl 4 MG Tablet 1 tablet Orally Once a day Prochlorperazine 10 MG Tablet 1 tablet as needed Orally Three times a day traMADol HCl 50 MG Tablet 1 tablet as needed Orally Once a day Tylenol Extra Strength 500 MG Tablet 1 tablet as needed Orally every 6 hrs Zetia 10 MG Tablet 1 tablet Orally Once a day Taking Carafate 1 GM Tablet 1 tablet on an empty stomach Orally Once daily Taking cefTRIAXone Sodium 2 GM Solution Reconstituted as directed Injection Taking Ferrous Gluconate 324 (38 Fe) MG Tablet 1 tablet Orally Three times a Week Taking Lantus SoloStar 100 UNIT/ML Solution Pen-injector Inject up to 50 Units Subcutaneous Daily , Notes to Pharmacist: 50% discountTaking NIFEdipine 60 MG Tablet Extended Release as directed Orally Taking NovoLOG FlexPen 100 UNIT/ML Solution Pen-injector 10 Units with meals Subcutaneous TID Taking Ondansetron HCl 4 MG Tablet 1 tablet Orally Once a day Taking Prochlorperazine 10 MG Tablet 1 tablet as needed Orally Three times a day Taking traMADol HCl 50 MG Tablet 1 tablet as needed Orally Once a day Taking Tylenol Extra Strength 500 MG Tablet 1 tablet as needed Orally every 6 hrs Taking Zetia 10 MG Tablet 1 tablet Orally Once a day Not-TakingGvoke HypoPen 2-Pack 1 MG/0.2ML Solution Auto-injector as directed Subcutaneous PRN , stop date 01/27/2027, Notes to Pharmacist: 50% discountIron 325 (65 Fe) MG Tablet 1 tablet Orally Twice daily metFORMIN HCl 500 MG Tablet 1 tablet with a meal Orally Twice daily Protonix 40 MG Tablet Delayed Release 1 tablet Orally Once a day Not-Taking Gvoke HypoPen 2- Pack 1 MG/0.2ML Solution Auto-injector as directed Subcutaneous PRN , stop date 01/27/2027, Notes to Pharmacist: 50% discountNot-Taking Iron 325 (65 Fe) MG Tablet 1 tablet Orally Twice daily Not-Taking metFORMIN HCl 500 MG Tablet 1 tablet with a meal Orally Twice daily Not-Taking Protonix 40 MG Tablet Delayed Release 1 tablet Orally Once a day Assessment: * Assessment: 1. A bscess of prostate - N41.2 (Primary) 2 . R enal failure, unspecified chronicity - N19 1. 44 yo white male with a h istory of recurrent UTI's, T2DM, nephropathy, neuropathy, and cigarette smoker 2. Admission 02-07-25 with Prostatic abscess, and renal failure -discharged 02-24-25, then was admitted in [facility]. - Requested pt get discharge summary from [...] thickening or inflammation. Stable mild splenomegaly. 4. 5; RESECTION PROSTATE TRANSURETHRAL, transurethral resection/unroofing of the prostatic abscess 5. 02-08-25 UC E. coli (R: amp, S: fortaz, cipro);02-07-25 Urine culture; E coli (R:amp, S: Fortaz, cipro) - 02-23-25 UC Neg at 48 hrs -02-26-25 BC Neg 6. Antibiotics;Day # 42 on 03-22-25 - DC Fortaz on 03-24-25 post-op (start date 02-09-25) duration 6 weeks AET 03-22-25 - DC Cipro PO 500mg BID (start date 03-24-25) . Pt notified to CT Cipro on 03-25-25 7. Gastritis, Peptic ulcer disease, improved on Carafate and Protonix. - Pt doing better on this treatment Labs 02-23-25 W 7.6, Computer Science Instructor 4.34, CRP 3.18 03-06-25; W 4.9, Computer Science Instructor 4 .18,, CRP 3.45, PSA .12, UM WBC U 378 03-24-25 W 5.0, Computer Science Instructor 3.13, CRP .66 05-20-25 UC Neg Follow up; Rosa Garber Billing Information: * Procedure Codes: Care Plan Details* * Electronic signature of Guillermo Mendez JR, MD on 08/12/2025 at 04:35 PM PASSENGER ELEVATOR OPERATOR Sign off status: Pending * Provider: Hamilton Mendez MD Date: 0 06/03/2025 Generated for José Miguel burgess/Horacio/Kellenitting on: 10/12/2024 04:35 PM PASSENGER ELEVATOR OPERATOR
--- NOTE | 2025-08-12 16:34 | CTR_ITS ---
PROCEDURE INFORMATION: Exam: CT Abdomen And Pelvis Without Contrast Exam date and time: 08/12/2025 5:07 PM Age: 44 years old Clinical indication: Abdominal pain; PT C/O L flank pain that came on suddenly today and dysuria and some blood in urine. Reports HX of UTI. TECHNIQUE: Imaging protocol: Computed tomography of the abdomen and pelvis without contrast. Axial, coronal and sagittal reformatted images were created and reviewed. Radiation optimization: All CT scans at this facility use at least one of these dose optimization techniques: automated exposure control; mA and/or kV adjustment per patient size (includes targeted exams where dose is matched to clinical indication); or iterative reconstruction. COMPARISON: CT kidney stone [id number] 07/03/2025 9:46 AM RADIATION DOSE METRICS: Total DLP (mGy-cm): 691.23 FINDINGS: Diaphragm: Small hiatal hernia. Liver: Unremarkable. Gallbladder and biliary ducts: No radiodense gallstones. No biliary ductal dilatation. Pancreas: Unremarkable. Spleen: Unremarkable. Adrenal glands: Normal. No mass. Kidneys and ureters: 1.9 cm exophytic left renal cyst (no follow-up is indicated based on the imaging appearance). Mild bilateral perinephric stranding and edema. No radiodense calculi. No hydronephrosis. Stomach and bowel: No bowel wall thickening. No obstruction. No pneumatosis. Appendix: Normal. Intraperitoneal space: No free fluid. No organized fluid collection. No free air. Vasculature: Mild atherosclerotic disease. No aneurysm. Lymph nodes: No pathologically enlarged lymph nodes. Urinary bladder: Mild circumferential urinary bladder wall thickening. Reproductive: Unremarkable. Bones/joints: No acute osseous abnormality. Osteopenia. Degenerative changes. Soft tissues: Unremarkable. CT/CT kidney stone [id number] IMPRESSION: 1. Mild circumferential urinary bladder wall thickening and bilateral perinephric stranding and edema. No radiodense calculi. No hydronephrosis. Infection/pyelonephritis cannot be excluded without intravenous contrast. 2. Additional findings, as above. COMMENTS: Consistent with the [employer]'s Incidental Findings Committee white paper (J Am Chuy Radiol 2018): Any incidental renal lesion less than 1 cm or classified as too small to characterize, or any incidental cystic renal lesion characterized as simple-appearing, is likely benign. No follow-up imaging is recommended for these lesions per consensus recommendations based on imaging criteria.
--- OUTSIDE RECORDS SUMMARY | 2025-08-12 16:35 | XMS_ITS | Patient Health Record ---
Author Organization [facility] Address [address] [place] [address] Care Team Providers Care Student Services Coordinator Name Role Phone Sil Gatica MD Primary Care Provider UnavailJess Russ Unavailable [phone] Jameel Schmitt Unavailable [phone] Chang García Unavailable [phone] Marybel Parry Unavailable [phone] Saurabh Mendez JR Unavailable [phone] Maria Luisa Baez Unavailable [phone] Muna Dubon Unavailable [phone] Nae Love Unavailable [phone] Allergies Allergen (clinical drug ingredient) Drug/Non Drug Allergy documented on EMR Reaction Allergy Type Onset Date Status No Known Drug Allergy Unknown Drug Allergy Active Results Component Value Reference Range Flag Notes Calcium Ionized (B) 52467 Reviewed date:02/12/2025 04:25:31 PM Interpretation: Performing Lab: Notes/Report: 4421 @ 2013 Calcium Ionized 1.06 1.09-1.30 MMOL/L LOW Magnesium (B) 57017 Reviewed date:02/12/2025 04:25:31 PM Interpretation: Performing Lab: Notes/Report: 4421 @ 2013 Magnesium 1.9 1.8-2.4 MG/DL Phosphorus (B) 79178 Reviewed date:02/12/2025 04:25:31 PM Interpretation: Performing Lab: Notes/Report: 4421 @ 2013 Phos 6.1 2.4-5.1 MG/DL HI % Iron Saturation (Fe & TIBC )--96017,07977 Reviewed date:02/12/2025 04:25:31 PM Interpretation: Performing Lab: [...] % Iron Saturation 10 20-50 % LOW CBC w\ Auto Diff 87821 Reviewed date:02/14/2025 07:29:24 AM Interpretation: Performing Lab: Notes/Report: 4421 @ 2013 WBC 8.2 4.5-11.0 X10'3 RBC 2.79 4.50-5.90 X10'6 LOW Hgb 7.0 13.5-17.5 G/DL LOW Hct 22.9 41.0-53.0 % LOW MCV 82.1 80.0-100.0 FL MCH 25.1 27.0-31.0 PG LOW MCHC 30.6 31.0-37.0 G/DL LOW Platelet 342 150-400 X10'3 RDW-SD 48.8 35.0-49.0 FL RDW-CV 16.1 12.2-15.6 % HI MPV 8.6 9.2-12.0 FL LOW Neutro Auto% 77.2 40.0-70.0 % HI Lymph Auto% 11.8 22.0-44.0 % LOW [place] Auto% 4.6 3.0-7.0 % Eos Auto% 2.8 2.0-4.0 % Baso Auto% 0.2 0.0-1.0 % Imm Gran% 3.4 .0-.4 % HI Neutro Abs 6.35 .80-7.70 Absolute Neutrophil Count 6350 NA Lymph Abs .97 .10-4.10 [place] Abs .38 .20-1.00 Eos Abs .23 .00-.40 Baso Abs .02 .00-.20 Imm Gran Abs .28 .00-.10 HI NRBC# .00 .00-.20 NRBC% .00 .00-.20 /100 intact WBC's Comprehensive Metabolic Pane l (CMP) 75403 Reviewed date:02/14/2025 07:29:14 AM Interpretation: Performing Lab: Notes/Report: 4421 @ 2014 Glucose Serum 123 71-110 MG/DL HI Testing p aidenformed at [address] [place] [address]. CLIA ID#: [id number] BUN 46 7-21 MG/DL HI Creat 6.30 .57-1.17 MG/DL HI G-fpaeyc-y-benzoquin one imine (NAPQI) is a metabolite of [...] UNIT/L Osmo Serum,Calculated 295 280-300 MOSM/KG CRP 73392 Reviewed date:02/14/2025 07:29:09 AM Interpretation: Performing Lab: Notes/Report: 4421 @ 2013 CRP 12.03 .40-1.00 MG/DL HI Comprehensive Metabolic Pane l (CMP) 41107 Reviewed date:02/14/2025 07:27:55 AM Interpretation: Performing Lab: Notes/Report: 4421 @ 2013 Glucose Serum 138 71-110 MG/DL HI Testing p erformed at [facility], [address] [place] [address] [place] [address]. CLIA ID#: [id number] BUN 44 7-21 MG/DL HI Creat 6.31 .57-1.17 MG/DL HI K-bkegdd-e-benzoquin one imine (NAPQI) is a metabolite of [...] UNIT/L Osmo Serum,Calculated 297 280-300 MOSM/KG CRP 41700 Reviewed date:02/14/2025 07:27:42 AM Interpretation: Performing Lab: Notes/Report: 4421 @ 2013 CRP 9.79 .40-1.00 MG/DL HI CBC w\ Auto Diff 98988 Reviewed date:02/14/2025 07:27:34 AM Interpretation: Performing Lab: [...] HI Lymph Auto% 11.6 22.0-44.0 % LOW [place] Auto% 4.9 3.0-7.0 % Eos Auto% 3.3 2.0-4.0 % Baso Auto% 0.2 0.0-1.0 % Imm Gran% 3.2 .0-.4 % HI Neutro Abs 7.15 .80-7.70 Absolute Neutrophil Count 7150 NA Lymph Abs 1.08 .10-4.10 [place] Abs .46 .20-1.00 Eos Abs .31 .00-.40 Baso Abs .02 .00-.20 Imm Gran Abs .30 .00-.10 HI NRBC# .00 .00-.20 NRBC% .00 .00-.20 /100 intact WBC's CBC w\ Auto Diff 81780 Reviewed date:03/08/2025 08:08:36 AM Interpretation: Performing Lab: [...] 40.0-70.0 % Lymph Auto% 23.6 22.0-44.0 % [place] Auto% 7.4 3.0-7.0 % HI Eos Auto% 8.8 2.0-4.0 % HI Baso Auto% 0.6 0.0-1.0 % Imm Gran% .6 .0-.4 % HI Neutro Abs 2.87 .80-7.70 Absolute Neutrophil Count 2870 NA Lymph Abs 1.15 .10-4.10 [place] Abs .36 .20-1.00 Eos Abs .43 .00-.40 HI Baso Abs .03 .00-.20 Imm Gran Abs .03 .00-.10 NRBC# .00 .00-.20 NRBC% .00 .00-.20 /100 intact WBC's CRP 01767 Reviewed date:03/08/2025 08:08:32 AM Interpretation: Performing Lab: Notes/Report: Diagnosis Description: Abscess of prostate Diagnosis Description: Unspecified kidney failure CRP 3.45 .40-1.00 MG/DL HI Microscopic Urine 95822 Reviewed date:03/08/2025 08:08:02 AM Interpretation: Performing Lab: Notes/Report: Diagnosis Description: Abscess of prostate Diagnosis Description: Unspecified kidney failure RBC U 94 NA WBC U 378 0-5 /HPF HI Bacteria 1+ NA Hyaline Casts 3 NA SQ EPI <1 NA Culture Urine 75149 Reviewed date:03/08/2025 08:07:55 AM Interpretation: Performing Lab: Notes/Report: Culture Urine SHANEL Ruiz Culture Urine t: Culture Urine Culture Urine Accessio [id number] Culture Urine n: Culture Urine Microbiology Culture [...] Culture Urine O1: Culture Urine (Culture Urine 46507) Culture Urine Diagnosis Description: Abscess of prostate Culture Urine Diagnosis Description: Unspecified kidney failure PSA Diagnostic--18771 Reviewed date:03/08/2025 08:07:45 AM Interpretation: Performing Lab: Notes/Report: Diagnosis Description: Abscess of prostate PSA .12 .00-4.00 NG/ML PSA concen trations, regardless of the value, should not be interpreted as definitive evidence for the presence or absence of prostate cancer. Culture Urine 11029 Reviewed date:04/04/2025 11:04:54 AM Interpretation: Performing Lab: Notes/Report: Culture Urine SHANEL Ruiz Culture Urine t: Culture Urine Culture Urine Accessio [id number] Culture Urine n: Culture Urine Microbiology Culture [...] Culture Urine O1: Culture Urine (Culture Urine 78164) Culture Urine Diagnosis Description: Unspecified symptoms and signs involving the genitourinary system Add to Specimen in lab--No C PT Reviewed date:04/30/2025 08:35:52 PM Interpretation: Performing Lab: Notes/Report: Add To Specimen In Lab Yes UA Without Micro-Auto, [place] - [address] Reviewed date:06/24/2025 10:06:18 AM Interpretation: Performing Lab: Notes/Report: Glucose 1+ Bili 0 Ketones 0 Sp Warren 1.015 Blood 2+ pH 6.0 Protein 0 Urobili 0 Nitrites 0 Leukocytes 1+ CRP 39353 (Not yet reviewed by provider) Interpretation: Performing Lab: Notes/Report: Diagnosis Description: Abscess of prostate CRP <.50 .40-1.00 MG/DL CBC w\ Auto Diff 46930 (Not yet reviewed by provider) Interpretation: Performing [...] 40.0-70.0 % Lymph Auto% 40.5 22.0-44.0 % [place] Auto% 5.8 3.0-7.0 % Eos Auto% 5.5 2.0-4.0 % HI Baso Auto% 0.7 0.0-1.0 % Imm Gran% .2 .0-.4 % Neutro Abs 1.97 .80-7.70 Absolute Neutrophil Count 1970 NA Lymph Abs 1.69 .10-4.10 [place] Abs .24 .20-1.00 Eos Abs .23 .00-.40 Baso Abs .03 .00-.20 Imm Gran Abs .01 .00-.10 NRBC# .00 .00-.20 NRBC% .00 .00-.20 /100 intact WBC's Comprehensive Metabolic Pane l (CMP) 61445 (Not yet reviewed by provider) Interpretation: Performing Lab: Notes/Report: Diagnosis Description: Abscess of prostate Glucose Serum 168 71-110 MG/DL HI Testing p erformed at [facility], [address] [place] [address] [place] [address]. CLIA ID#: [id number] BUN 70 7-21 MG/DL HI Creat 4.26 .57-1.17 MG/DL HI Y-vhoeha-a-benzoquin one imine (NAPQI) is a metabolite of [...] [facility] recommends using the CKD-EPI Creatinine Equation(202) to estimate GFR. BUN/Creat Ratio 16.4 12.0-20.0 [...] UNIT/L Osmo Serum,Calculated 312 280-300 MOSM/KG HI Culture Urine 89571 (Not yet reviewed by provider) Interpretation: Performing Lab: Notes/Report: Culture Urine SHANEL Ruiz Culture Urine t: Culture Urine Culture Urine Accessio [id number] Culture Urine n: Culture Urine Microbiology Culture [...] Culture Urine O1: Culture Urine (Culture Urine 45047) Culture Urine Diagnosis Description: Abscess of prostate Culture Urine Diagnosis Description: Unspecified kidney failure Microscopic Urine 58085 (Not yet reviewed by provider) Interpretation: Performing Lab: Notes/Report: Diagnosis Description: Abscess of prostate Diagnosis Description: Unspecified kidney failure RBC U 3 NA WBC U 26 0-5 /HPF HI Bacteria None Seen NA Hyaline Casts 1 NA SQ EPI <1 NA UA Without Micro-Auto, [place] - [address] Reviewed date:05/20/2025 10:22:04 AM Interpretation: Performing Lab: Notes/Report: Glucose 1+ Bili 0 Ketones 0 Sp Warren 1.010 Blood 3+ pH 6.0 Protein +- Urobili 0 Nitrites 0 Leukocytes 3+ Culture Urine 46686 Reviewed date:05/23/2025 06:55:17 AM Interpretation: Performing Lab: Notes/Report: Culture Urine SHANEL Ruiz Culture Urine t: Culture Urine Culture Urine Accessio [id number] Culture Urine n: Culture Urine Microbiology Culture [...] Culture Urine O1: Culture Urine (Culture Urine 36068) Culture Urine Diagnosis Description: Acute cystitis without hematuria UA Without Micro-Auto, [place] - [address] Reviewed date:05/13/2025 10:36:08 AM Interpretation: Performing Lab: Notes/Report: Glucose 2+ Bili 0 Ketones 0 Sp Warren 1.010 Blood 3+ pH 6.0 Protein +- Urobili 0 Nitrites 0 Leukocytes 3+ Phosphorus (B) 83991 Reviewed date:05/05/2025 04:51:50 PM Interpretation: Performing Lab: Notes/Report: Phos 4.7 2.4-5.1 MG/DL Magnesium (B) 32206 Reviewed date:05/05/2025 04:51:50 PM Interpretation: Performing Lab: Notes/Report: Magnesium 2.3 1.8-2.4 MG/DL CBC w\o Diff 15962 Reviewed date:05/05/2025 04:51:50 PM Interpretation: Performing Lab: Notes/Report: WBC 6.4 4.5-11.0 X10'3 RBC 2.69 4.50-5.90 X10'6 LOW Hgb 7.1 13.5-17.5 G/DL LOW Hct 21.9 41.0-53.0 % LOW MCV 81.4 80.0-100.0 FL MCH 26.4 27.0-31.0 PG LOW MCHC 32.4 31.0-37.0 G/DL Platelet 344 150-400 X10'3 RDW-SD 40.7 35.0-49.0 FL RDW-CV 13.5 12.2-15.6 % MPV 9.5 9.2-12.0 FL Basic Metabolic Panel (BMP) 46457 Reviewed date:06/04/2025 01:33:05 PM Interpretation: Performing Lab: Notes/Report: Sodium 135 136-145 MMOL/L LOW Potassium 3.8 3.5-5.1 MMOL/L Chloride 106 98-107 MMOL/L CO2 17.4 20.0-31.0 MMOL/L LOW Glucose Serum 142 71-110 MG/DL HI Testing p erformed at [facility], [address] [place] [address] Dr. [place]rena [place], [place] [address]. CLIA ID#: [id number] BUN 67 7-21 MG/DL HI REVIEWED - MONA Y. Creat 5.24 .57-1.17 MG/DL HI N-nuyhuq-l-benzoquin one imine (NAPQI) is a metabolite of [...] Serum,Calculated 302 280-300 MOSM/KG HI Phosphorus (B) 97242 Reviewed date:06/04/2025 01:33:05 PM Interpretation: Performing Lab: Notes/Report: Phos 5.2 2.4-5.1 MG/DL HI Magnesium (B) 56810 Reviewed date:04/30/2025 08:31:34 PM Interpretation: Performing Lab: Notes/Report: Magnesium 2.5 1.8-2.4 MG/DL HI Phosphorus (B) 71392 Reviewed date:04/30/2025 08:31:34 PM Interpretation: Performing Lab: Notes/Report: Phos 5.1 2.4-5.1 MG/DL Basic Metabolic Panel (BMP) 83216 Reviewed date:04/30/2025 08:35:52 PM Interpretation: Performing Lab: Notes/Report: Sodium 131 136-145 MMOL/L LOW Potassium 3.6 3.5-5.1 MMOL/L Chloride 103 98-107 MMOL/L CO2 12.5 20.0-31.0 MMOL/L LOW Glucose Serum 148 71-110 MG/DL HI Testing p erformed at [facility], [address] [place] [address] [place] [address]. CLIA ID#: [id number] BUN 78 7-21 MG/DL HI Delta check no dewey, will monitor Creat 6.13 .57-1.17 MG/DL HI Y-zaomzi-w-benzoquin one imine (NAPQI) is a metabolite of [...] 8.7-10.4 MG/DL Osmo Serum,Calculated 298 280-300 MOSM/KG Basic Metabolic Panel (BMP) 03121 Reviewed date:04/30/2025 08:36:07 PM Interpretation: Performing Lab: Notes/Report: Sodium 130 136-145 MMOL/L LOW Potassium 3.7 3.5-5.1 MMOL/L Chloride 102 98-107 MMOL/L CO2 13.7 20.0-31.0 MMOL/L LOW Glucose Serum 179 71-110 MG/DL HI Testing p erformed at [facility], [address] [place] [address] [place] [address]. CLIA ID#: [id number] BUN 91 7-21 MG/DL HI REPEATED - MONA Y Creat 6.11 .57-1.17 MG/DL HI S-bacqbn-y-benzoquin one imine (NAPQI) is a metabolite of [...] Osmo Serum,Calculated 302 280-300 MOSM/KG HI Ferritin 15489 Reviewed date:04/30/2025 08:36:07 PM Interpretation: Performing Lab: Notes/Report: Ferritin 1253 8-388 NG/ML HI % Iron Saturation (Fe & TIBC )--77314,90721 Reviewed date:04/30/2025 08:36:07 PM Interpretation: Performing Lab: [...] 4 20-50 % LOW CBC w\o Diff 95195 Reviewed date:04/30/2025 08:36:07 PM Interpretation: Performing Lab: Notes/Report: WBC 9.9 4.5-11.0 X10'3 RBC 2.87 4.50-5.90 X10'6 LOW Hgb 7.7 13.5-17.5 G/DL LOW Hct 23.3 41.0-53.0 % LOW MCV 81.2 80.0-100.0 FL MCH 26.8 27.0-31.0 PG LOW MCHC 33.0 31.0-37.0 G/DL Platelet 267 150-400 X10'3 RDW-SD 40.4 35.0-49.0 FL RDW-CV 13.6 12.2-15.6 % MPV 9.7 9.2-12.0 FL US Renal w/bladder-55378 Reviewed date:04/10/2025 03:53:48 PM Interpretation: Performing Lab: Notes/Report: [email or web address] US Renal w/bladder-45041 Reviewed date:04/10/2025 03:53:39 PM Interpretation: Performing Lab: Notes/Report: See Below For Report US Renal w/bladder To be completed THIS WEEK OR NEXT. No later than 04/11/2025. Read See Below For Report UA Without Micro-Auto, [place] - [address] Reviewed date:04/01/2025 08:30:44 AM Interpretation: Performing Lab: Notes/Report: Glucose 2+ Bili - Ketones - Sp Warren 1.010 Blood 1+ pH 6.0 Protein +- Urobili - Nitrites - Leukocytes 3+ CRP 74316 Reviewed date:03/26/2025 08:16:31 AM Interpretation: Performing Lab: Notes/Report: Diagnosis Description: Abscess of prostate Diagnosis Description: Unspecified kidney failure CRP .66 .40-1.00 MG/DL CBC w\ Auto Diff 63281 Reviewed date:03/26/2025 08:16:37 AM Interpretation: Performing Lab: [...] 40.0-70.0 % Lymph Auto% 38.4 22.0-44.0 % [place] Auto% 5.7 3.0-7.0 % Eos Auto% 7.9 2.0-4.0 % HI Baso Auto% 0.6 0.0-1.0 % Imm Gran% .4 .0-.4 % Neutro Abs 2.33 .80-7.70 Absolute Neutrophil Count 2330 NA Lymph Abs 1.90 .10-4.10 [place] Abs .28 .20-1.00 Eos Abs .39 .00-.40 Baso Abs .03 .00-.20 Imm Gran Abs .02 .00-.10 NRBC# .00 .00-.20 NRBC% .00 .00-.20 /100 intact WBC's Comprehensive Metabolic Pane l (CMP) 50002 Reviewed date:03/26/2025 08:16:44 AM Interpretation: Performing Lab: Notes/Report: Diagnosis Description: Abscess of prostate Diagnosis Description: Unspecified kidney failure Glucose Serum 99 71-110 MG/DL Testing p erformed at [facility], [address] [place] [address] [place] [address]. CLIA ID#: [id number] BUN 67 7-21 MG/DL HI Creat 3.13 .57-1.17 MG/DL HI Q-kesplz-n-benzoquin one imine (NAPQI) is a metabolite of [...] 12-78 UNIT/L Osmo Serum,Calculated 310 280-300 MOSM/KG MS Comprehensive Metabolic Pane l (CMP) 41633 Reviewed date:03/08/2025 08:08:41 AM Interpretation: Performing Lab: Notes/Report: Diagnosis Description: Abscess of prostate Diagnosis Description: Unspecified kidney failure Glucose Serum 217 71-110 MG/DL HI Testing p erformed at [facility], [address] [place] [address] [place] [address]. CLIA ID#: [id number] BUN 58 7-21 MG/DL HI Creat 4.18 .57-1.17 MG/DL HI M-csulsf-l-benzoquin one imine (NAPQI) is a metabolite of [...] UNIT/L Osmo Serum,Calculated 289 280-300 MOSM/KG CRP 48295 Reviewed date:02/24/2025 08:31:22 AM Interpretation: Performing Lab: Notes/Report: report called 3529 CRP 3.18 .40-1.00 MG/DL HI Comprehensive Metabolic Pane l (CMP) 57763 Reviewed date:02/13/2025 03:35:54 PM Interpretation: Performing Lab: Notes/Report: 4421 @ 2014 Glucose Serum 134 71-110 MG/DL HI Testing p erformed at [facility], [address] [place] [address] [place] [address]. CLIA ID#: [id number] BUN 52 7-21 MG/DL HI Creat 6.93 .57-1.17 MG/DL HI K-brqbjy-l-benzoquin one imine (NAPQI) is a metabolite of [...] 12-78 UNIT/L Osmo Serum,Calculated 298 280-300 MOSM/KG Ferritin 44046 Reviewed date:02/12/2025 04:25:31 PM Interpretation: Performing Lab: Notes/Report: 4421 @ 2013 Ferritin 1106 8-388 NG/ML HI CBC w\ Auto Diff 90247 Reviewed date:02/12/2025 04:25:31 PM Interpretation: Performing Lab: [...] HI Lymph Auto% 12.7 22.0-44.0 % LOW [place] Auto% 6.6 3.0-7.0 % Eos Auto% 3.2 2.0-4.0 % Baso Auto% 0.2 0.0-1.0 % Imm Gran% 2.7 .0-.4 % HI Neutro Abs 6.10 .80-7.70 Absolute Neutrophil Count 6100 NA Lymph Abs 1.04 .10-4.10 [place] Abs .54 .20-1.00 Eos Abs .26 .00-.40 Baso Abs .02 .00-.20 Imm Gran Abs .22 .00-.10 HI NRBC# .00 .00-.20 NRBC% .00 .00-.20 /100 intact WBC's Glucometer WBG--48791 Reviewed date:01/21/2025 02:36:40 PM Interpretation: Performing Lab: Notes/Report: Glucometer WBG 269 65-110 MG/DL HI Notify Dr~Asymptomatic~Meter : [id number]~Wax Ball Molder: [id number] BRANDIE TITUS Basic Metabolic Panel (BMP) 81659 Reviewed date:01/30/2025 10:24:37 AM Interpretation: Performing Lab: Notes/Report: in Endoscopy pre procedure area Sodium 134 136-145 MMOL/L LOW Potassium 3.6 3.5-5.1 MMOL/L Chloride 98 98-107 MMOL/L CO2 22.9 20.0-31.0 MMOL/L Glucose Serum 291 71-110 MG/DL HI Testing p erformed at [facility], [address] [place] [address] [place] [address]. CLIA ID#: [id number] BUN 37 7-21 MG/DL HI DELTA NOTED BY TECH Creat 2.80 .57-1.17 MG/DL HI Z-ydkldw-i-benzoquin one imine (NAPQI) is a metabolite of [...] Serum,Calculated 297 280-300 MOSM/KG CBC w\o Diff 17466 Reviewed date:12/28/2024 01:56:29 PM Interpretation: Performing Lab: Notes/Report: 1W 2424 WBC 6.8 4.5-11.0 X10'3 RBC 4.83 4.50-5.90 X10'6 Hgb 13.0 13.5-17.5 G/DL LOW Hct 37.1 41.0-53.0 % LOW MCV 76.8 80.0-100.0 FL LOW MCH 26.9 27.0-31.0 PG LOW MCHC 35.0 31.0-37.0 G/DL Platelet 188 150-400 X10'3 RDW-SD 37.6 35.0-49.0 FL RDW-CV 13.3 12.2-15.6 % MPV 10.6 9.2-12.0 FL US Renal w/bladder-43975 Reviewed date:07/02/2025 07:27:20 AM Interpretation: Performing Lab: Notes/Report: See Below For Report US Renal w/bladder To be completed this week or next. Thank you. Read See Below For Report Microscopic Urine 76351 Reviewed date:07/07/2025 03:38:58 PM Interpretation: Performing Lab: Notes/Report: Diagnosis Description: Hematuria, unspecified RBC U 5 NA WBC U 20 0-5 /HPF HI Bacteria None Seen NA SQ EPI 1 NA US Renal w/bladder-33342 Reviewed date:07/02/2025 07:16:53 AM Interpretation: Performing Lab: Notes/Report: [id number] Reason For Referral Reason EGD/COLON Diagnosis 1 Microcytic anemia (D 50.9) Diagnosis 2 Chronic diarrhea (K5 2.9) Diagnosis 3 Chronic gastroesopha geal reflux disease (K21.9) Referring Provider First Name Sim braga Referring Provider Last Name HI Referring Provider Speciality [facility] Referred Organization [facility] Referred Provider Marybel Parry Referred Address [address] [place],[address],[place] Referral Priority Routine Reason Prostate Abscess Diagnosis 1 Prostate abscess (N4 1.2) Referring Provider First Name Sim braga Referring Provider Last Name HI Referring Provider Speciality [facility] Referred Organization [facility] Referred Provider Jameel Schmitt Referred Address [address],[place],[address],[place] Referred Provider Specialty Urology Referral Priority Routine Reason PEPTIC ULCER DISEASE GASTRITIS Diagnosis 1 Peptic ulcer disease (K27.9) Diagnosis 2 Gastritis (K29.70) Referral Organization [facility] Referring Provider First Name Saurabh Referring Provider Last Name Andrea Referring Provider Speciality Infectious Disease Referred Organization [facility] Referred Provider Marybel Parry Referred Address [address] [place],[address],[place] Referred Provider Specialty Gastroentero logy Referral Priority Routine Reason Referring to Dr Jona gutierrez. Thank you! , RFS sent Diagnosis 1 Referral of patient (Z76.89) Referring Provider First Name Jameel Referring Provider Last Name Keshia Referring Provider Speciality Urology Referred Organization [facility] Referred Provider Jess Hyde Referred Address [address] [place] [address] [address],[place],[address],[place] Referred Provider Specialty Nurse Abilio dowd Referral Priority Routine Reason Referring to Dr Jona gutierrez. Thank you! RFS sent Diagnosis 1 Referral of patient (Z76.89) Referral Organization [facility] Referring Provider First Name Jameel Referring Provider Last Name Keshia Referring Provider Speciality Urology Referred Organization [facility] Referred Provider Chang García Referred Address [address] [place] [address] [address],[place],[address],[place] Referred Provider Specialty Nephrology Referral Priority Routine Reason Referring to Dr Eric freed for chronic UTI. Thank you! RFS sent Diagnosis 1 Chronic UTI (N39.0) Referral Organization [facility] Referring Provider First Name Jameel Referring Provider Last Name Keshia Referring Provider Speciality Urology Referred Provider Saurabh Mendez Referred Provider Specialty Internal Med icine Referral Priority Routine Reason Chronic UTI RFS Se nt 05/13/25 Diagnosis 1 Chronic UTI (N39.0) Referring Provider First Name Jameel Referring Provider Last Name Keshia Referring Provider Speciality Urology Referred Organization [facility] Referred Provider Saurabh Mendez Referred Address [address] [place] [address],[place],[address], Referral Priority Routine Medications Medication SIG (Take, [...] needed Orally Once a day Active Dexcom Lunch Cook Kit Active Tylenol Extra Strength 500 MG [...] in home : Deployment History: [employer] [phone], 2 deploytments [employer]: [employer] 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 Education Masters Degree Section Notes: Denies Caffeine Denies Alcohol Denies Caffeine Denies Alcohol Denies Caffeine Denies Alcohol Denies Caffeine Denies Alcohol Denies Caffeine Denies Alcohol Denies Caffeine Denies Alcohol Problems Problem Type SNOMED Code ICD Code Onset Dates Problem Status W/U Status Risk Notes Problem Type II diabetes mellitus without complication (713396169) Type 2 diabetes mellitus without complications (E11.9) Active confirmed Problem Diabetic severe hyperglycemia (750782547) Other specified diabetes mellitus with hyperglycemia (E13.65) Active confirmed Problem Benign prostatic hypertrophy without outflow obstruction (346956300) Benign prostatic hyperplasia without lower urinary tract symptoms (N40.0) Active confirmed Problem Chronic cystitis (78611012) Chronic cystitis (N30.20) Active confirmed Problem Essential hypertension (44186298) Essential hypertension (I10) Active confirmed Problem Lower urinary tract symptoms due to benign prostatic hypertrophy (71275431704344) Benign prostatic hyperplasia with lower urinary tract symptoms, symptom details unspecified (N40.1) Active confirmed Problem Gastroesophageal reflux disease (disorder) (094122293) Chronic GERD (K21.9) Active confirmed Problem Iron deficiency anemia (38740037) Iron deficiency anemia, unspecified iron deficiency anemia type (D50.9) Active confirmed Problem Chronic kidney disease stage 4 (968816051) CKD (chronic kidney disease), stage IV (N18.4) Active confirmed Problem Hyperparathyroidism (81206721) Hyperparathyroidism (E21.3) Active confirmed Problem Hyperphosphatemia (68497195) Hyperphosphatemia (E83.39) Active confirmed Problem Gastritis (4303191) Gastritis (K29.70) Active c onfirmed Problem Peptic ulcer disease (85984274) Peptic ulcer disease (K27.9) Active confirmed Problem Renal failure syndrome (65611675) Renal failure, unspecified chronicity (N19) Active confirmed Problem Microcytic anemia (546491734) Microcytic anemia (D50.9) Active confirmed Problem Iron deficiency anemia (71510889) Iron deficiency anemia (D50.9) Active confirmed Problem Neurologic disorder associated with type II diabetes mellitus (123054833) 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) Active confirmed Problem Hyperglycemia due to type 2 diabetes mellitus (550760721015747) Type 2 diabetes mellitus with hyperglycemia, unspecified whether manager long term care insulin use (E11.65) Active confirmed Problem Long-term current us e of insulin (485381123) Current use of insulin (Z79.4) Active confirmed Problem 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) Active confirmed Problem Hypotonic bladder (566256004) Hypotonic bladder (N31.2) Active confirmed Problem Gastroesophageal reflux disease (744266256) Chronic gastroesophageal reflux disease (K21.9) Active confirmed Problem Ketoacidosis in type II diabetes mellitus (067631021) Diabetes mellitus type 2 with ketoacidosis, uncontrolled [...] 66ml Encounters Encounter Location Date Provider Diagnosis [facility] [address] [place] [address] [place] [address] 5 Saurabh Andrea Abscess of prostate N41.2 and Renal failure, unspecified chronicity N19 [facility] [address] [place] [address], [place] [address] 5 Saurabh Andrea Abscess of prostate N41.2 and Renal failure, unspecified chronicity N19 [facility] [address] [place] [address], [place] [address] 5 Saurabh Andrea Abscess of prostate N41.2 and Renal failure, unspecified chronicity N19 [facility] [address] [place] [address], [place] [address] 5 Saurabh Andrea Abscess of prostate N41.2 and Renal failure, unspecified chronicity N19 [facility] [address] [place] [address] [place] [address] 5 Jameel Schmitt Benign prostatic hyperplasia with lower urinary tract symptoms, symptom details unspecified N40.1 ; Chronic cystitis N30.20 and Hypotonic 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 [facility] [address] [place] [address] Dr Anne [address] [place] [address] 5 Jess Hyde CKD (chronic kidney disease), stage IV N18.4 ; 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 ; Essential hypertension I10 ; Iron deficiency anemia, unspecified iron deficiency anemia type D50.9 ; Hyperphosphatemia E83.39 ; Hyperparathyroidism E21.3 and Hypotonic 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 [facility] [address] [place] [address] [place] [address] 5 Jameel Rochasay Abscess of prostate N41.2 ; Flank pain R10.9 ; Incomplete bladder emptying R33.9 and Unspecified symptoms and signs involving the genitourinary system R39.9 [facility] [address] [place] [address], [place] [address] 5 Saurabh Andrea Abscess of prostate N41.2 and Renal failure, unspecified chronicity N19 [facility] [address] [place] [address] [place] [address] 5 Jameel Schmitt Benign prostatic hyperplasia with lower urinary tract symptoms, symptom details unspecified N40.1 ; Chronic UTI N39.0 and Hypotonic 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 [facility] [address] [place] [address] 5 Marybel Parry Iron deficiency anemia, unspecified iron deficiency anemia type D50.9 [facility] [address] [place] [address] [place] [address] 5 Nae Love Other specified diabetes mellitus with hyperglycemia E13.65 ; Current use of insulin Z79.4 ; Diabetes education, encounter for Z71.89 ; Uses self-applied continuous glucose monitoring device Z97.8 and At risk for hypoglycemia Z91.89 [facility] [address] [place] [address] [place] [address] 5 Jameel Schmitt Cystitis N30.90 and Acute cystitis without hematuria N30.00 [facility] [address] [place] [address] Dr [address] [place] [address] 5 Jameel Schmitt [facility] [address] [place] [address] Dr Anne [address] [place] [address] 5 Chang García Iron deficiency anemia D50.9 ; Hyperphosphatemia E83.39 ; Hyperparathyroidism E21.3 and RENNY (acute kidney injury) N17.9 [facility] [address] [place] [address] Dr Anne [address] [place] [address] 5 Jameel Schmitt Urinary retention R33.9 and Hematuria, unspecified type R31.9 [facility] [address] [place] [address] Dr Anne [address] [place] [address] 5 Jameel Schmitt Abscess of prostate N41.2 and Flank pain R10.9 [facility] [address] [place] [address] [place] [address] 5 Saurabh Mendez [facility] [address] [place] [address] 5 Marybel Parry [facility] [address] [place] [address] Dr [address] [place] [address] 5 Chang García [facility] [address] [place] [address] 5 Abodunrin Reynaldoerere Acute kidney injury N17.9 [facility] [address] [place] [address] 5 Abodunrin Reynaldoerere Iron deficiency anemia, unspecified iron deficiency anemia type D50.9 [facility] [address] [place] [address] 5 Muna Dubon [facility] [address] [place] [address] Dr Anne [address] [place] [address] 5 Jess Hyde [facility] [address] [place] [address] 5 Jameel Schmitt [facility] [address] [place] [address] Dr Anne [address] [place] [address] 5 Jameel Schmitt [facility] [address] [place] [address] 5 Jameel Schmitt Benign prostatic hyperplasia without lower urinary tract symptoms N40.0 ; Flank pain R10.9 and Hematuria R31.9 [facility] [address] [place] [address] Dr [address] [place] [address] 5 Jess Hyde [facility] [address] [place] [address] 5 Jameel Schmitt Assessments Encounter Date Diagnosis (ICD Code) Assessment Notes Treatment Notes Treatment Clinical Notes Section Notes 04/01/2025 Abscess of prostate (ICD-10 - N41.2) 12/30/2024 Iron deficiency anemia, unspecified iron deficiency anemia type (ICD-10 - D50.9) 03/06/2025 Abscess of prostate (ICD-10 - N41.2) [...] on this treatment Labs 02-14-25 W 9.3, Program Therapist 6.31, CRP 9.79 02-23-25 W 7.6, Program Therapist 4.34, CRP 3.18 Follow up; 1 week [...] on this treatment Labs 02-14-25 W 9.3, Program Therapist 6.31, CRP 9.79 02-23-25 W 7.6, Program Therapist 4.34, CRP 3.18 Follow up; 1 week labs and UC Rosa Garber 01/30/2025 Acute kidney injury (ICD-10 - N17.9) 06/16/2025 CKD (chronic kidney disease), stage IV (ICD-10 - N18.4) Chronic Kidney Disease: Care Instructions material was printed Chronic kidney disease stage IV based on current labs. Acute kidney injury in February 2025 with prostate abscess and again in April 2025 with sepsis and pyelonephritis . CKD likely due to hypertension, diabetes and bladder outlet obstruction. Hypertension is uncontrolled in clinic, but controlled at home by report. Unknown control diabetes. He currently does not have a Gama catheter. 06/16/2025 Type 2 diabetes with nephropathy (ICD-10 - E11.21) Chronic kidney disease stage IV based on current labs. Acute kidney injury in February 2025 with prostate abscess and again in April 2025 with sepsis and pyelonephritis . CKD likely due to hypertension, diabetes and bladder outlet obstruction. Hypertension is uncontrolled in clinic, but controlled at home by report. Unknown control diabetes. He currently does not have a Gama catheter. 04/01/2025 Abscess of prostate (ICD-10 - N41.2) 03/24/2025 Abscess of prostate (ICD-10 - N41.2) [...] (start date 03-24-25) . Pt notified to [place] Cipro on 03-25-25 @ 945am 7. Gastritis, Peptic ulcer disease, improved on Carafate and Protonix. - Pt doing better on this treatment Labs 02-14-25 W 9.3, Program Therapist 6.31, CRP 9.79 02-23-25 W 7.6, Program Therapist 4.34, CRP 3.18 03-06-25; W 4.9, Program Therapist 4.18,, CRP 3.45, PSA .12, UM WBC U 378 03-24-25 W 5.0, Program Therapist 3.13, CRP .66 Follow up; PRN repeat labs Rosa Garber 03/13/2025 Abscess of prostate (ICD-10 [...] on this treatment Labs 02-14-25 W 9.3, Program Therapist 6.31, CRP 9.79 02-23-25 W 7.6, Program Therapist 4.34, CRP 3.18 03-06-25; W intake worker. 4.18, CRP 3.45 Follow up; 1 week labs and [facility] Rosa Garber 01/21/2025 Iron deficiency anemia, unspecified [...] a fingerstick blood glucose monitor or the [employer] Sulema 3 cgm daily. The Sulema 3 [...] reviewed. Verbal and written instructions given including [employer] Customer support contact information. Patient is able [...] Z79.4) 04/01/2025 Flank pain (ICD-10 - R10.9) 04/01/2025 Urinary retention (ICD-10 - R33.9) 05/06/2025 [...] Hospitalized in April [address] [facility] (elevated WBC, UC Neg at that time) -advised to get records from [place] -was treated with Cipro 3. Diagnostics; -CT [...] (R:amp, S: Fortaz, cipro) 03-06-25; W 4.9, Program Therapist 4.18,, CRP 3.45, PSA .12, UM WBC U 378 03-24-25 W 5.0, Program Therapist 3.13, CRP .66 Follow up; 2 weeks UC,UM,CBC,CRP, Comp Rosa Leonoralevon Garber 06/16/2025 Renal failure, unspecified chronicity (ICD-10 - N19) 1. 44 yo white male with a history of recurrent UTI's, T2DM, nephropathy, neuropathy, and cigarette smoker -02-07-25 with Prostatic abscess, and renal failure -no catheter now, no HD 2. Hospitalized in April [address]TI [address] [facility] (elevated WBC, UC Neg at that time) -advised to get records from [place] -was treated with Cipro 3. Diagnostics; -CT [...] (R:amp, S: Fortaz, cipro) 03-06-25; W 4.9, Program Therapist 4.18,, CRP 3.45, PSA .12, UM WBC U 378 03-24-25 W 5.0, Program Therapist 3.13, CRP .66 Follow up; 2 weeks UC,UM,CBC,CRP, Comp Scribe Leonora Garber 06/24/2025 Chronic cystitis (ICD-10 - N30.20) 06/24/2025 [...] Hospitalized in April [address]TI [address] [facility] (elevated WBC, UC Neg at that time) -advised to get records from [place] -was treated with Cipro 3. Diagnostics; -CT [...] (start date 06-16-25) Labs 06-16-25 W 4.2, Program Therapist 4.26, CRP <.50, UC Neg 06-24-25 UM WBC 20 Follow up; 4 months Scribe Leonora Garber 06/30/2025 Renal failure, unspecified chronicity (ICD-10 - N19) 1. 44 yo white male with a history of recurrent UTI's, T2DM, nephropathy, neuropathy, and cigarette smoker - Prostatic abscess, and renal failure -followed by Dr. Santana (Kidney) 2. Hospitalized in April [address]TI [address] [facility] (elevated WBC, UC Neg at that time) -advised to get records from [place] -was treated with Cipro 3. Diagnostics; -CT [...] (start date 06-16-25) Labs 06-16-25 W 4.2, Program Therapist 4.26, CRP <.50, UC Neg 06-24-25 UM WBC 20 Follow up; 4 months Rosa Garber 06/16/2025 Essential hypertension (ICD-10 - I10) Chronic kidney disease stage IV based on current labs. Acute kidney injury in February 2025 with prostate abscess and again in April 2025 with sepsis and pyelonephritis . CKD likely due to hypertension, diabetes and bladder outlet obstruction. Hypertension is uncontrolled in clinic, but controlled at home by report. Unknown control diabetes. He currently does not have a Gama catheter. 06/24/2025 Flank pain (ICD-10 - R10.9) 05/06/2025 Hyperphosphatemia (ICD-10 - E83.39) 06/24/2025 Hypotonic bladder (ICD-10 - N31.2) 05/13/2025 Hypotonic bladder (ICD-10 - N31.2) 05/20/2025 Acute cystitis without hematuria (ICD-10 - N30.00) 04/01/2025 Incomplete bladder emptying (ICD-10 - R33.9) 04/01/2025 Hematuria, unspecified type (ICD-10 - R31.9) 01/27/2025 Diabetes education, encounter for (ICD-10 - Z71.89) 03/13/2025 Renal failure, unspecified chronicity (ICD-10 - [...] on this treatment Labs 02-14-25 W 9.3, Program Therapist 6.31, CRP 9.79 02-23-25 W 7.6, Program Therapist 4.34, CRP 3.18 03-06-25; W intake worker. 4.18, CRP 3.45 Follow up; 1 week labs and UC Rosa Garber 03/24/2025 Renal failure, unspecified chronicity (ICD-10 - [...] splenomegaly. . 02-08-25; RESECTION PROSTATE TRANSURETHRAL, transurethral resection/unro ofing [...] on this treatment Labs 02-14-25 W 9.3, Program Therapist 6.31, CRP 9.79 02-23-25 W 7.6, Program Therapist 4.34, CRP 3.18 03-06-25; W 4.9, Program Therapist 4.18,, CRP 3.45, PSA .12, UM WBC U 378 03-24-25 W 5.0, Program Therapist 3.13, CRP .66 Follow up; PRN repeat labs Serafinmonica Lea Shirlene 04/01/2025 Flank pain (ICD-10 - R10.9) 01/27/2025 Uses self-applied continuous glucose monitoring device (ICD-10 - Z97.8) 05/06/2025 Hyperparathyroidis m (ICD-10 - E21.3) 06/24/2025 Hematuria (ICD-10 - R31.9) 06/16/2025 Iron deficiency anemia, unspecified iron deficiency anemia type (ICD-10 - D50.9) Chronic kidney disease stage IV based on current labs. Acute kidney injury in February 2025 with prostate abscess and again in April 2025 with sepsis and pyelonephritis . CKD likely due to hypertension, diabetes and bladder outlet obstruction. Hypertension is uncontrolled in clinic, but controlled at home by report. Unknown control diabetes. He currently does not have a Gama catheter. 01/27/2025 At risk for hypoglycemia (ICD-10 - Z91.89) 04/01/2025 Unspecified symptoms and signs involving the genitourinary system (ICD-10 - R39.9) 05/06/2025 RENNY (acute kidney injury) (ICD-10 - N17.9) 06/16/2025 Hyperphosphatemia (ICD-10 - E83.39) Chronic kidney disease stage IV based on current labs. Acute kidney injury in February 2025 with prostate abscess and again in April 2025 with sepsis and pyelonephritis . CKD likely due to hypertension, diabetes and bladder outlet obstruction. Hypertension is uncontrolled in clinic, but controlled at home by report. Unknown control diabetes. He currently does not have a Gama catheter. 06/16/2025 Hyperparathyroidis m (ICD-10 - E21.3) Chronic kidne y disease stage IV based on current labs. Acute kidney injury in February 2025 with prostate abscess and again in April 2025 with sepsis and pyelonephritis . CKD likely due to hypertension, diabetes and bladder outlet obstruction. Hypertension is uncontrolled in clinic, but controlled at home by report. Unknown control diabetes. He currently does not have a Gama catheter. 06/16/2025 Hypotonic bladder (ICD-10 - N31.2) Chronic kidney disease stage IV based on current labs. Acute kidney injury in February 2025 with prostate abscess and again in April 2025 with sepsis and pyelonephritis . CKD likely due to hypertension, diabetes and bladder outlet obstruction. Hypertension is uncontrolled in clinic, but controlled at home by report. Unknown control diabetes. He currently does not have a Gama catheter. 04/01/2025 Other Culture urine. 2 months wtih [...] emptying adequately today would not recommend urodynamics. 06/16/2025 Other Follow-up with Dr. Henson and Dr. Mendez as directed. Continue current antihypertensives monitor blood pressure daily with a goal of less than 130/80. Patient instructed to call clinic if blood pressure not at goal range. Recommend a low-sodium diet. Follow-up with PCP for diabetic control. Try to obtainmore old labs from [facility] in [place]. Continue Jardiance. Monitor groin area for rashes. Keep groin area clean and dry. Renal dose medications for GFR less than 20 mL/min. Avoid nephrotoxins and NSAIDs. Stay well hydrated. Follow-up in 3 months with labs at [facility] in [place]. Chronic kidney disease stage IV based on current labs. Acute kidney injury in February 2025 with prostate abscess and again in April 2025 with sepsis and pyelonephritis . CKD likely due to hypertension, diabetes and bladder outlet obstruction. Hypertension is uncontrolled in clinic, but controlled at home by report. Unknown control diabetes. He currently does not have a Gama catheter. 06/24/2025 Other Send urine for PCR and for micro. 3 months with UA and PVR continue follow ups it's infectious disease. Continue follow up with nephrology LEO this week or next week. Plan Of Treatment Pending Test Test Name Order Date Culture Urine [id number] 06/16/2025 Basic Metabolic Panel (BMP) 25595 2024 CBC w\ Auto Diff 70169 06/16/2025 Comprehensive Metabolic Panel (CMP) 8005 3 06/16/2025 Magnesium (B) 75228 05/06/2025 Creatinine (U) 81840 05/06/2025 Microscopic Urine 60667 06/16/2025 CRP 30872 06/16/2025 Diagnostic Colonoscopy-86902 12/30/2024 EGD, Upper GI Diagnostic-43253 Future Test Test Name Order Date Basic Metabolic Panel (BMP) 56694 2024 Ferritin 52740 05/06/2025 Hemoglobin 57106 05/06/2025 Iron Binding Capacity Total 90375 2024 Iron Level 46303 05/06/2025 Phosphorus (B) 01057 05/06/2025 Protein (U) Random 49157 05/06/2025 Uric Acid (B) 83919 05/06/2025 Vitamin D Total (B) 09529 05/06/2025 UA Reflex Micro, Reflex Cult 24124, 8101 5, 06721 05/06/2025 PTH Intact 35149 05/06/2025 % Iron Saturation (Fe & TIBC)--74930,835 50 05/06/2025 Albumin 69795 09/09/2025 Basic Metabolic Panel (BMP) 79752 2024 Ferritin 35076 09/09/2025 Hemoglobin 70954 09/09/2025 Iron Binding Capacity Total 94772 2024 Iron Level 44267 09/09/2025 Magnesium (B) 12025 09/09/2025 Phosphorus (B) 52543 09/09/2025 Uric Acid (B) 64813 09/09/2025 Vitamin D Total (B) 87731 09/09/2025 Microalbumin (U) Random 84221 09/09/2025 Creatinine (U) 74870 09/09/2025 UA Reflex Micro, Reflex Cult 94790, 8101 5, 78644 09/09/2025 PTH Intact 02374 09/09/2025 % Iron Saturation (Fe & TIBC)--37682,835 50 09/09/2025 Next Appt Details Provider Name:Jameel Tony y, 09/23/2025 10:00:00 AM, [address], [address], [place], [address], Provider Name:Jess sandoval, 09/29/2025 10:20:00 AM, [address] [place] [address], [address], [place], [address], Provider Name:Saurabh Reyes y, 10/30/2025 01:00:00 PM, [address] [place] [address] Drive, [address], [place], [address], Provider Name:Chang García, 01/05/2026 09:40:00 AM, [address] [place] [address] , [address], [place], [address], Insurance Providers Payer Name Payer Address Payer Phone Subscriber Number Group Number Insured Name Patient Relationship to Insured Coverage Start Date Coverage End Date Web TPA Nguyen [address] [place] [address] [phone] [id number] Shanel Martinez Self - patient is the insured [employer] [address] [place] [address] [id number] Shanel Martinez Self - patient is the insured Medical (General) History Medical History History ICD Code Diabetes with DKA Chicken Pox anemia bladder infections blood transfusion Back Trouble High Blood Pressure kidney stones Anxiety UTI Surgical History Surgery Date(Month/Year) vasectomy TURP Prostate surgery Hospitalization History Reason Date(Month/Year) DKA 2024 ICU for UTI 2024
--- OUTSIDE RECORDS SUMMARY | 2025-08-12 16:35 | XMS_ITS | Clinical Summary ---
Author Organization [facility] Address [address] [place] [address] Phone Care Team Providers Care Field Support Representative Name Role Phone Unavailable Primary Care Provider [...] Encounters Date Type Department Care Team Description 08/12/2025 External Device Data [facility] ABSTRACTION Provider, Abstract 07/30/2025 External Device Data [facility] ABSTRACTION Provider, Abstract 07/22/2025 External Device Data [facility] ABSTRACTION Provider, Abstract [...] Most Recently Relevant to Health Maintenance Insurance [facility] [address] [place] [id number] RX [employer] Member Subscriber Plan / Payer (Ef fective for All Dates) Name:Elizabeth Martinezd Relation to Subscriber:Self Name:Robert Martinez Subscriber ID:Not on file Payer ID:Not on file Group ID:[id number] Type:RX Commercial Address: [place] * Guarantor: [facility] J (C) Account Type Relation to Patient Date of Phone Billing Address Corporate Other DEFAULT ADDRESS [address] [employer] Advance Directives For more information, please contact: [phone] * Full Code (Latest Code Status on File) Date Activated Date Inactivated Comments 02/27/2025 11:34 PM 03/05/2025 4:34 PM
--- OUTSIDE RECORDS SUMMARY | 2025-08-12 16:35 | XMS_ITS | Clinical Summary ---
Author Organization [facility] Facility Address [address] [address] Care Team Providers Care Piece Hand Name Role Phone Unavailable Primary Care [...] complete this topic Insurance [id number] [place] [address] [facility] Regions 1,2,3 (VACCN)
--- OUTSIDE RECORDS SUMMARY | 2025-08-12 16:36 | XMS_ITS | Encounter Summary ---
Author Organization [facility] Address [address] [place] [address] Care Team Providers Care [employer] Tube Bender Name Role Phone Unavailable Primary Care Provider Unavailabl e Encounter Details Date Type Department Care Team (Late st Contact Info) Description 08/12/2025 External Device Data [facility] ABSTRACTION [...]
[2025-08-12 16:47] VITALS: BP 173/106; PULSE 91; TEMP 36.5; O2SAT 100
--- NOTE | 2025-08-12 17:01 | W.ED.MALEGU ---
HPI - Male Genitourinary General: Chief complaint: Urogenital-Male Stated complaint: blood in urine, L side back pain Time Seen by Provider: 08/12/25 16:53 History of Present Illness: 44-year-old man with a history of diabetes and chronic renal insufficiency, diabetes, anemia who presents emergency room with flank pain and blood in his urine. Says pain is more on the left flank. He noticed red urine. He went to the [facility] yesterday and they told him he had a UTI called in [facility]ro[facility]. He is writhing in pain initially on arrival. No known fevers. He has had nausea but no vomiting. Related Data Home Medications ?Medication ?Instructions ?Recorded ?Confirmed glucagon 1 mg/0.2 mL subcutaneous 1 mg SUBCUT PRN PRN low blood sugar 02/19/25 07/17/25 syringe (Uberpong PFS 2-Pack) insulin aspart U-100 100 unit/mL See Rx Instructions .Route .COMPLEX 02/19/25 07/17/25 (3 mL) subcutaneous pen insulin glargine 100 unit/mL (3 22 unit SUBCUT DAILY 02/19/25 07/17/25 mL) subcutaneous pen (Lantus Solostar U-100 Insulin) metformin 500 mg tablet 500 mg PO BID 02/19/25 07/17/25 metoclopramide HCl 5 mg tablet 5 mg PO TID PRN Nausea And Vomiting 02/19/25 07/17/25 pantoprazole 40 mg tablet,delayed 40 mg PO QAM 02/19/25 07/17/25 release ferrous gluconate 324 mg (38 mg 324 mg PO BID 03/31/25 07/17/25 iron) tablet ondansetron HCl 8 mg tablet 8 mg PO Q8H PRN Nausea And Vomiting 03/31/25 07/17/25 sucralfate 1 gram tablet 1 g PO BID 03/31/25 07/17/25 ciprofloxacin HCl 500 mg tablet 500 mg PO .3XWEEKLY 07/03/25 07/17/25 Held on 07/03/25. Instructions: Resume on 07/14/25. Hold x 10 days rosuvastatin 10 mg tablet 10 mg PO DAILY 07/03/25 07/17/25 Previous Rx's ?Medication ?Instructions ?Recorded prochlorperazine maleate 10 mg 10 mg PO Q8H PRN nausea and 02/19/25 tablet (Compazine) vomiting #20 tabs oxycodone-acetaminophen 5 mg-325 1 tab PO Q8H PRN pain #10 tabs 06/04/25 mg tablet (Percocet) hydrocodone 5 mg-acetaminophen 325 1 tab PO Q6H PRN pain #15 tabs 07/03/25 mg tablet methylprednisolone 4 mg tablets in See Rx Instructions PO .COMPLEX 07/10/25 a dose pack (Medrol (Nathaniel)) #21 ea tizanidine 4 mg tablet 4 mg PO Q6H PRN muscle spasticity 07/10/25 #20 tabs cefdinir 300 mg capsule 300 mg PO BID 10 days #20 caps 08/12/25 ondansetron 8 mg disintegrating 8 mg PO Q6H #14 tabs 08/12/25 tablet tramadol 50 mg tablet 50 mg PO Q8H PRN pain #20 tabs 08/12/25 Allergies Allergy/AdvReac Type Severity Reaction Status Date / Time No Known Allergies Allergy Verified 08/12/25 16:51 Review of Systems Narrative: Constitutional symptoms: Negative except as documented in HPI. Skin symptoms: Negative except as documented in HPI. Eye symptoms: Negative except as documented in HPI. ENMT symptoms: Negative except as documented in HPI. Respiratory symptoms: Negative except as documented in HPI. Cardiovascular symptoms: Negative except as documented in HPI. Gastrointestinal symptoms: Negative except as documented in HPI. Genitourinary symptoms: Negative except as documented in HPI. Musculoskeletal symptoms: Negative except as documented in HPI. Neurologic symptoms: Negative except as documented in HPI. Psychiatric symptoms: Negative except as documented in HPI. Endocrine symptoms: Negative except as documented in HPI. [facility] ED PFSH: Social History Smoking and tobacco/nicotine status: current some day tobacco/nicotine user (vape) Alcohol intake: never Physical Exam Narrative: EXAM NARRATIVE: General: Alert, patient is writhing in pain Skin: Warm, dry. Head: Normocephalic, atraumatic. Neck: Supple, trachea midline. Eye: Extraocular movements are intact. Ears, nose, mouth and throat: Tacky oral mucosa Cardiovascular: Regular, Normal peripheral perfusion. Respiratory: Lungs are clear to auscultation, respirations are non-labored, breath sounds are equal, Symmetrical chest wall expansion. Gastrointestinal: Soft, left flank pain, Non distended Musculoskeletal: Normal ROM, no deformity. Neurological: Alert and oriented, No focal neurological deficit observed. Psychiatric: Cooperative, appropriate mood & affect. Course Vital Signs: Vital signs: Vital Signs Temperature 97.7 F 08/12/25 16:47 Pulse Rate 98 08/12/25 19:41 Respiratory Rate 16 08/12/25 19:41 Blood Pressure 149/100 08/12/25 19:41 Pulse Oximetry 100 08/12/25 19:41 Oxygen Delivery Me thod Room Air 08/12/25 18:28 MDM - Male Medical Decision Making Medical decision making: Patient's reason for coming to the emergency room: Flank pain and dysuria. Social determinants employed and I reviewed the patient's medical record. Patient most recently seen here and oncology for anemia. I reviewed the patient's current home meds Patient is on insulin at home and metformin. Alternate historians: None. Patient gives good history. Differential diagnosis including but not limited to and based on the above HPI, review of systems and physical exam: In this patient with flank pain would have concern for: Ureterolithiasis. Urinary tract infection. Appendicitis. Cholecystitis. Musculoskeletal / back pain. Pyelonephritis. Orders placed to evaluate differential diagnosis based on the above differential, HPI and physical exam Lab Review: Laboratory results were reviewed and interpreted by myself the emergency room physician. No leukocytosis. Stable anemia. Stable chronic renal insufficiency with a BUN/creatinine of 60 and 4.8. Urinalysis does show signs of infection and hematuria. CT of the abdomen pelvis to rule out kidney stone shows mild circumferential urinary bladder wall thickening and bilateral perinephric stranding and edema. No hydronephrosis and no stones. This was reviewed and interpreted by myself the emergency room physician. I also reviewed the radiology report. Assessment of risk: Level of risk: Moderate risk given the patient's chronic kidney disease and diabetes. Hospitalization considerations: I did consider hospitalization but the patient improved quite a bit with fluids. Was never hypotensive or tachycardic. Has no leukocytosis. Reexamination: Patient remained stable. No increased work of breathing. No altered mental status. No focal motor deficits. Appears quite a bit improved after fluids and pain meds. Assessment and plan: Urinary tract infection Chronic renal insufficiency Dehydration ? IV fluids and IV Rocephin in the emergency room - Discharged home - Discussed plan with patient. Answered any questions. - Evaluation and treatment of this problem were appropriate in the emergency setting. Lab Data 08/12/25 17:38 08/12/25 17:38 Radiology Impressions Abdomen/Pelvis CT 08/12/25 16:34 IMPRESSION: 1. Mild circumferential urinary bladder wall thickening and bilateral perinephric stranding and edema. No radiodense calculi. No hydronephrosis. Infection/pyelonephritis cannot be excluded without intravenous contrast. 2. Additional findings, as above. COMMENTS: Consistent with the [place] [employer]'s Incidental Findings Committee white paper (J Am [employer]iol 2018): Any incidental renal lesion less than 1 cm or classified as too small to characterize, or any incidental cystic renal lesion characterized as simple-appearing, is likely benign. No follow-up imaging is recommended for these lesions per consensus recommendations based on imaging criteria. Laboratory Results WBC 5.88 10^3/uL (3.29-11.43) 08/12/25 17:38 RBC 3.19 10^6/uL (3.85-5.65) L 08/12/25 17:38 Hgb 9.20 g/dL (11.27-16.99) L 08/12/25 17:38 Hct 26.9 % (37-53) L 08/12/25 17:38 MCV 84.3 fl (82-101) 08/12/25 17:38 MCH 28.8 pg (27-33) 08/12/25 17:38 MCHC 34.2 g/dL (30-55) 08/12/25 17:38 RDW 14.5 % (12.1-15.1) 08/12/25 17:38 Plt Count 142 10^3/cmm (157-399) L 08/12/25 17:38 MPV 10.3 fL (7.4-10.4) 08/12/25 17:38 Neut % (Auto) 69.7 % 08/12/25 17:38 Lymph % (Auto) 21.6 % 08/12/25 17:38 Jenkins % (Auto) 5.4 % 08/12/25 17:38 Eos % (Auto) 2.7 % 08/12/25 17:38 Baso % (Auto) 0.3 % 08/12/25 17:38 Neut # (Auto) 4.09 10^3/uL (1.8-7.7) 08/12/25 17:38 Lymph # (Auto) 1.3 10^3/uL (0.8-4.8) 08/12/25 17:38 Jenkins # (Auto) 0.3 10^3/uL (0.2-0.9) 08/12/25 17:38 Eos # (Auto) 0.2 10^3/uL (0.0-0.8) 08/12/25 17:38 Baso # (Auto) 0.0 10^3/uL (0.0-0.1) 08/12/25 17:38 Nucleated RBC % (auto) 0 % 08/12/25 17:38 Nucleated RBCs # 0.0 /100WBC 08/12/25 17:38 Sodium 139 mmol/L (136-145) 08/12/25 17:38 Potassium 5.2 mmol/L (3.5-5.1) H 08/12/25 17:38 Chloride 107 mmol/L (98-107) 08/12/25 17:38 Carbon Dioxide 20 mmol/L (22-29) L 08/12/25 17:38 Anion Gap 17.2 (5-19) 08/12/25 17:38 BUN 60 mg/dL (6-20) H 08/12/25 17:38 Creatinine 4.8 mg/dL (0.7-1.2) H 08/12/25 17:38 GFR Calculation 13.3 mL/min (90-130) L 08/12/25 17:38 Glucose 116 mg/dL (65-115) H 08/12/25 17:38 Calculated Osmolality 306 mOsm/kg (285-295) H 08/12/25 17:38 Lactic Acid 0.6 mmol/L (0.5-2.2) 08/12/25 17:38 Calcium 8.9 mg/dL (8.5-10.5) 08/12/25 17:38 Total Bilirubin 0.3 mg/dL (0.15-1.2) 08/12/25 17:38 AST 19 U/L (0-40) 08/12/25 17:38 ALT 30 U/L (0-41) 08/12/25 17:38 Alkaline Phosphatase 99 U/L (40-130) 08/12/25 17:38 Total Protein 7.7 g/dL (6.6-8.7) 08/12/25 17:38 Albumin 4.5 g/dL (3.5-5.2) 08/12/25 17:38 Globulin 3.2 g/dL (1.3-4.6) 08/12/25 17:38 Urine Color Yellow (Yellow) 08/12/25 16:53 Urine Appearance Clear (CLEAR) 08/12/25 16:53 Urine pH 5.5 (5-7) 08/12/25 16:53 Ur Specific [place] 1.010 (1.005-1.030) 08/12/25 16:53 Urine Protein 1+ (Negative) A 08/12/25 16:53 Urine Glucose (UA) Negative (Normal) 08/12/25 16:53 Urine Ketones Negative (Negative) 08/12/25 16:53 Urine Blood 3+ (Negative) A 08/12/25 16:53 Urine Nitrate Negative (Negative) 08/12/25 16:53 Urine Bilirubin Negative (Negative) 08/12/25 16:53 Urine Urobilinogen 0.2 mg/dL (Negative) 08/12/25 16:53 Ur Leukocyte Esterase 2+ (Negative) A 08/12/25 16:53 Urine RBC 51-100 /hpf (0-2) H 08/12/25 16:53 Urine WBC 21-50 /hpf (0-5) H 08/12/25 16:53 Ur Squamous Epith Cells 0-5 /hpf (0-5) 08/12/25 16:53 Amorphous Sediment Not Reportable 08/12/25 16:53 Urine Bacteria None seen /hpf (NONE) 08/12/25 16:53 Hyaline Casts 0-4 /lpf H 08/12/25 16:53 All radiology interpretation(s) finalized by discharge Discharge Plan Discharge Patient Disposition: Home Clinical Impression: Urinary tract infection, Dehydration, Chronic kidney insufficiency Condition: Stable Prescriptions: New tramadol 50 mg tablet 50 mg PO Q8H PRN (Reason: pain) Qty: 20 0RF ondansetron 8 mg tablet,disintegrating 8 mg PO Q6H Qty: 14 0RF Rx Instructions: Take 1/2-1 tab every 6 hours as needed for nausea and vomiting cefdinir 300 mg capsule 300 mg PO BID 10 Days Qty: 20 0RF No Action ondansetron HCl 8 mg tablet 8 mg PO Q8H PRN (Reason: Nausea And Vomiting) sucralfate 1 gram tablet 1 g PO BID ferrous gluconate 324 mg (38 mg iron) tablet 324 mg PO BID metformin 500 mg tablet 500 mg PO BID metoclopramide HCl 5 mg tablet 5 mg PO TID PRN (Reason: Nausea And Vomiting) pantoprazole 40 mg tablet,delayed release (DR/EC) 40 mg PO QAM insulin aspart U-100 100 unit/mL (3 mL) insulin pen See Rx Instructions .ROUTE .COMPLEX Rx Instructions: Inject subcutaneously per sliding scale 3 times daily before meals. insulin glargine [Lantus Solostar U-100 Insulin] 100 unit/mL (3 mL) insulin pen 22 unit SUBCUT DAILY Gvoke PFS 2-Pack Syringe 1 mg/0.2 mL syringe 1 mg SUBCUT PRN PRN (Reason: low blood sugar) prochlorperazine maleate [Compazine] 10 mg tablet 10 mg PO Q8H PRN (Reason: nausea and vomiting) Qty: 20 0RF oxycodone-acetaminophen [Percocet] 5-325 mg tablet 1 tab PO Q8H PRN (Reason: pain) Qty: 10 0RF ciprofloxacin HCl 500 mg tablet 500 mg PO .3XWEEKLY rosuvastatin 10 mg Tablet 10 mg PO DAILY hydrocodone-acetaminophen 5-325 mg tablet 1 tab PO Q6H PRN (Reason: pain) Qty: 15 0RF tizanidine 4 mg tablet 4 mg PO Q6H PRN (Reason: muscle spasticity) Qty: 20 0RF Rx Instructions: do not exceed 3 doses per 24 hrs methylprednisolone [Medrol (Nathaniel)] 4 mg tablets,dose pack See Rx Instructions .ROUTE .COMPLEX Qty: 21 0RF Rx Instructions: orally per package directions Discharge Orders: Discharge ED (Routine); Ordered 08/12/25 Ordered By: Rosanna Montoya Referrals: Sil House MD [Primary Care Provider, Family Practice] Patient Instructions: Opioid Safety, Pain Management, Patient Portal & Meka Instructions Activity Restrictions/Additional Instructions: Thank you for choosing [facility] for your healthcare needs today. You have been screened and evaluated and felt safe for discharge. Health conditions do change or evolve sometimes and as such it is important that you follow up with your Primary Doctor to be re checked, 3-5 days is a general good time frame for follow up. You are always welcome to return to the ED for re assessment if your symptoms are worsening or you have new concerns Print Language: Tunisian Coding Level of Care Code ED [employer] for Jasvir Ramos
[2025-08-12 17:04] LABS: Glucose Urine UA Negative (Normal); Nitrate Urine Negative (Negative); Specific Gravity, Urine 1.010 (1.005-1.030)
[2025-08-12 17:51] LABS: Hematocrit 26.9 % (37-53); Hemoglobin 9.20 g/dL (11.27-16.99); Mean Corpuscular HGB Conc 34.2 g/dL (30-55); Mean Corpuscular Hemoglobin 28.8 pg (27-33); Mean Corpuscular Volume 84.3 fl (82-101); Nucleated Red Blood Cells % 0 %; Platelet Count 142 10^3/cmm (157-399); Red Blood Count 3.19 10^6/uL (3.85-5.65); White Blood Count 5.88 10^3/uL (3.29-11.43)
[2025-08-12] MEDS: cefTRIAXone 1,000 mg SDV 1000 MG IVP (18:02)
[2025-08-12] MEDS: ondansetron 2 mg/ML SDV 2 mL 8 MG IVP (18:02)
[2025-08-12] MEDS: HYDROmorphone 0.5 MG/0.5 ML INJ 1 MG IVP (18:02)
[2025-08-12 18:25] LABS: Alanine Aminotransferase 30 U/L (0-41); Albumin Level 4.5 g/dL (3.5-5.2); Alkaline Phosphatase 99 U/L (40-130); Anion Gap 17.2 (5-19); Aspartate Amino Transferase 19 U/L (0-40); Blood Urea Nitrogen 60 mg/dL (6-20); Calcium 8.9 mg/dL (8.5-10.5); Carbon Dioxide 20 mmol/L (22-29); Chloride 107 mmol/L (98-107); Creatinine Clr Calc Pharmacy 21.9690; Globulin 3.2 g/dL (1.3-4.6); Glucose 116 mg/dL (65-115); Osmolality Calculated 306 mOsm/kg (285-295); Potassium 5.2 mmol/L (3.5-5.1); Sodium 139 mmol/L (136-145); Total Protein 7.7 g/dL (6.6-8.7)
[2025-08-12 18:26] LABS: Lactic Sepsis W/Reflex 0.6 mmol/L (0.5-2.2)
[2025-08-12 18:28] VITALS: BP 139/89; PULSE 92; RESP 16; O2SAT 97
[2025-08-12 18:30] VITALS: BP 171/107; PULSE 90; RESP 16; O2SAT 99
[2025-08-12 19:00] VITALS: BP 163/104; PULSE 89; RESP 16; O2SAT 100
[2025-08-12 19:41] VITALS: BP 149/100; PULSE 98; RESP 16; O2SAT 100
== END 2025-08-12 19:39 | disposition home or self-care (01) ==
PROVIDERS: Emergency Provider Emergency Medicine; PCP Family Medicine
DX: N39.0 Urinary tract infection, site not specified (principal); E86.0 Dehydration; N18.9 Chronic kidney disease, unspecified; Z79.4 Long term (current) use of insulin; Z79.84 Long term (current) use of oral hypoglycemic drugs; F17.290 Nicotine dependence, other tobacco product, uncomplicated
CPT/HCPCS: 36415; 74176; 80053; 81001; 83605; 85025; 87086; 96374; 96375; 99285; J0696; J1171; J2405; J7030

== ENCOUNTER 2025-08-13 04:45 | Emergency (ER) | payer OTHER, SELFPAY ==
--- OUTSIDE RECORDS SUMMARY | 2025-03-11 03:00 | XMS_ITS | Encounter Summary ---
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 This section includes the names of all active insurance providers for the patient. Insurance Provider Type of Coverage Plan Name Start of Policy Coverage End of Policy Coverage Group Number Member ID Insurance Provider's Telephone Number Policy Cabezas's Name Patient's Relationship to Policy Cabezas [employer] PRES[facility]ON [facility] Nov 19, 2024 [facility] [id number] KEYSHAWN BERRY PATIENT PROCARE RX PRESCRIPT ION RX PLAN February 06, 2025 [id number] KEYSHAWN BERRY SPOUSE WEB TPA PREFERRED PROVIDER ORGANIZAT ION (PPO) [facility] February 06, [id number] C [id number] [phone] JEFFRY BERRY SPOUSE WEB TPA PREFERRED PROVIDER ORGANIZAT ION (PPO) [facility] Nov 19, 20242018[facility] C [id number] [phone] KEYSHAWN BERRY AD PATIENT Selected Encounter This section includes the information on record at [place] for the Encounter. Date/Time Encounter Type Encounter Description Reason Provider Source Mar 11, 2025 09:00 AM OFF/OP EST FEBRUARY X REQ PHY/QHP PRIMARY CARE/MEDICINE ICD-10-CM E11.9 Type 2 diabetes mellitus without complications LUKAS BEAN Sol Encounter Template Text not used by [place] Assessments - Encounter Diagnoses This section includes the primary and secondary diagnoses documented for the Encounter. Date/Time Primary/Secondary Diagnosis Diagnosis Name Provider Source Mar 11, 2025 03:59 PM PRIMARY Type 2 diabetes mellitus without complications LUKAS BEAN [facility] Plan of Treatment: Future Appointments (+ 6 months) and Future Tests (+/- 45 days) The Plan of Treatment section includes future care activities for the patient from [facility] [place] [facility] This section includes future appointments and future orders which are active, pending or scheduled. Future Appointments This section includes appointments that were scheduled to occur 6 months from the date of the Encounter, up to a maximum of 20 appointments. The data comes from all [facility]. Appointment Date/Time Appointment Type Appointme nt Facility Name Mar 17, 2025 09:00 AM [facility]ATORY [facility] Mar 18, 2025 02:36 PM [facility] [place]IC[place] [facility] Mar 31, 2025 04:00 PM AM[facility]UL[facility]ORY [place] [facility] Apr 01, 2025 08:20 AM [facility]ORY [place]IC[place] [facility] Apr 04, 2025 08:30 AM AMBULATORY - MEDICINE [facility] [place] [facility] May 13, 2025 03:00 PM AMBULATORY - MEDICINE [facility] May 13, 2025 03:01 PM AMBULATORY - MEDICINE [facility] Jun 16, 2025 11:20 AM [facility] [place] [facility] Jul 04, 2025 09:30 AM AM[facility]ULATORY - MED[facility] Jul 09, 2025 09:15 AM AMBULATORY - MEDICINE [facility] Active, Pending, and Scheduled Orders This section includes a listing of several types of active, pending, and scheduled orders, including clinic medications orders, diagnostic test orders, procedure orders and consult orders; where the start date of the order is 45 days before the date of the Encounter or 45 days after the date of theEncounter. The data comes from all [place] treatment facilities. 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 Mar 17, 2025 01:02 PM Consult Order [facility] [id number] [facility] Drill Operator [facility] Lab Results: +/- 30 days of the encounter This section includes the Chemistry and Hematology Lab Results on record with [place] for the patient. Radiology Reports and Pathology Reports are provided separately, in subsequent sections. Lab Results This section contains the Chemistry/Hematology Results that were resulted 30 days before or 30 daysafter the date of the Encounter. Date/Time Source Result Type Result - Unit Interpretation Reference Range Specimen Type Comment Mar 11, 2025 09:31 AM [facility] CYSTATIN C EGFR PANELS (STL-PB-MA) PLASMA Spec imen Type: PLASMA Comment: Choice of which of the reported eGFR values to use depends on the clinical situation. For example, for patients with severe muscle wasting or reduced muscle mass, eGFR calculated using the 2012 cystatin equation may be preferred. Ordering Provider: MARYLU HENDERSON Report Released Date/Time: Feb 03, 2025 12:03 PM Reporting Lab: [facility] [address] [facility] [address] Performing Lab: [facility] [address] [facility] [address] CYSTATIN C 3.30 mg/L H 0.57-1.80 CKD-EPI CYSTATIN C (2011) 17.0 >60 CKD-EPI CREAT-CYSC (2020) 18.0 >60 CREATININE (STL) 3.53 mg/dL H 0.7-1.3 Mar 11, 2025 09:31 AM [facility] CHOLESTEROL PANEL (PB) PLASMA Specimen Type: P KSENIA No comment entered. Ordering Provider: MARYLU HENDERSON Report Released Date/Time: Feb 03, 2025 12:03 PM Reporting Lab: [place] [facility] [address] [place] [address] Performing Lab: [place] [facility] [address] [place] [address] CHOLESTEROL 134 mg/dL 0-200 TRIGLYCERIDE 106 mg/dL 0-150 CALCULATED LDL 75.2 mg/dL HDL(New) 37.6 mg/dL L >40 HDL % OF TOTAL CHOLESTEROL (PB) 28.1 >25 Mar 11, 2025 09:31 AM [facility] IRON PLASM A Specimen Type: PLASMA No comment entered. Ordering Provider: MARYLU HENDERSON Report Released Date/Time: Feb 03, 2025 12:03 PM Reporting Lab: [place] [facility] [address] [place] [address] Performing Lab: [place] [facility] [address] [place] [address] IRON 42 ug/dL L 65-175 Mar 11, 2025 09:31 AM [facility] MAGNESIUM PLASMA Specimen Typ e: PLASMA No comment entered. Ordering Provider: MARYLU HENDERSON Report Released Date/Time: Feb 03, 2025 12:03 PM Reporting Lab: [place] [facility] [address] [place] [address] Performing Lab: [place] [facility] [address] [place] [address] MAGNESIUM 2.38 mg/dL 1.6-2.6 Mar 11, 2025 09:31 AM [facility] CBC BLOOD Specimen Type: BLOOD No comment entered. Ordering Provider: MARYLU HENDERSON Report Released Date/Time: Feb 03, 2025 12:03 PM Reporting Lab: [place] [facility] [address] [place] [address] Performing Lab: [place] [facility] [address] [place] [address] WBC 6.3 10*3/uL 3.6-11.2 RBC 3.41 10*6/uL L 4.10-5.70 HGB 8.7 g/dL L 13.1-16.8 HCT 27.1 L 38.2-48.4 MCV 79.5 fL L 80.0-100.0 MCH 25.5 pg L 27.0-34.0 MCHC 32.1 g/dL L 33.0-36.0 PLT 263 10*3/uL 150-400 MPV 10.3 fL 7.5-11.2 RDW 18.0 H 11.8-15.1 LYMPHOCYTES, AUTO % 20.7 MONOCYTES, AUTO % 7.3 NEUTROPHILS, AUTO % 61.6 EOSINOPHILS, AUTO % 9.0 BASOPHILS, AUTO % 0.8 LYMPHOCYTES, ABSOLUTE 1.31 10*3/uL 0.77- 4.50 MONOCYTES, ABSOLUTE 0.46 10*3/uL 0.19-0. 8 NEUTROPHILS, ABSOLUTE 3.90 10*3/uL 2.10- 8.00 EOSINOPHILS, ABSOLUTE 0.57 10*3/uL 0.00- 0.60 BASOPHILS, ABSOLUTE 0.05 10*3/uL 0.00-0. 20 IMMATURE GRANS, AUTO % 0.6 IMMATURE GRANS, AUTO ABS 0.04 10*3/uL 0. 00-0.05 Mar 11, 2025 09:31 AM [facility] DIRECT LDL (MA-PB) PLASMA Specimen Type: PLASM A No comment entered. Ordering Provider: MARYLU HENDERSON Report Released Date/Time: Feb 03, 2025 12:03 PM Reporting Lab: [place] [facility] [address] [place] [facility] Performing Lab: [place] [facility] [address] [place] [facility] DIRECT LDL 87.1 mg/dL 0-99.9 Mar 11, 2025 09:31 AM [facility] VITAMIN D, 25-HYDROXY SERUM Specimen Type: SE RUM No comment entered. Ordering Provider: MARYLU HENDERSON Report Released Date/Time: Feb 03, 2025 12:03 PM Reporting Lab: [place] [facility] [address] [place] [address] Performing Lab: [place] [facility] [address] [place] [facility] VITAMIN D, 25-HYDROXY 40.3 ng/mL 30-96 Mar 11, 2025 09:31 AM [facility] URINE ALBUMIN PROFILE-ih (PB) URINE Specimen Type: URINE No comment entered. Ordering Provider: MARYLU HENDERSON Report Released Date/Time: Feb 03, 2025 12:03 PM Reporting Lab: [place] [facility] [address] [place] [address] Performing Lab: [place] [facility] [address] [place] [address] URINE ALBUMIN (PB-STL) 114.96 mg/L uACR (PB-MA) 365.65 mg/g H 0-30 CREATININE URINE/OTHERS 31.44 mg/dL Mar 11, 2025 09:31 AM [facility] B12 SERUM Specimen Type: SERUM No comment entered. Ordering Provider: MARYLU HENDERSON Report Released Date/Time: Feb 03, 2025 12:03 PM Reporting Lab: [place] [facility] [address] [place] [address] Performing Lab: [place] [facility] [address] [place] [address] B12 443 pg/mL 213-816 Mar 11, 2025 09:31 AM [facility] HGA1C BLOOD Specimen Type: BLOOD No comment entered. Ordering Provider: MARYLU HENDERSON Report Released Date/Time: Feb 03, 2025 12:03 PM Reporting Lab: [place] [facility] [address] [place] [address] Performing Lab: [place] [facility] [address] [place] [address] HGA1C 7.7 H 4.0-6.0 Mar 11, 2025 09:31 AM [facility] FOLATE (PB) SERUM Specimen Typ e: SERUM No comment entered. Ordering Provider: MARYLU HENDERSON Report Released Date/Time: Feb 03, 2025 12:03 PM Reporting Lab: [place] [facility] [address] [place] [address] Performing Lab: [place] [facility] [address] [place] [address] FOLATE (PB) 2.9 ng/mL L 7-20 Mar 11, 2025 09:31 AM [facility] COMPREHENSIVE METABOLIC PANEL PLASMA Specimen Type: PLASMA No comment entered. Ordering Provider: MARYLU HENDERSON Report Released Date/Time: Feb 03, 2025 12:03 PM Reporting Lab: [place] [facility] [address] [place] [address] Performing Lab: [place] [facility] [address] [place] [address] CREATININE 3.62 mg/dL H 0.7-1.3 UREA NITROGEN 55 mg/dL H 9-25 GLUCOSE 161 mg/dL H 72-99 SODIUM 134 meq/L L 136-145 POTASSIUM 4.4 meq/L 3.5-5 CHLORIDE 101 meq/L 98-107 CARBON DIOXIDE 22 meq/L 22-31 CALCIUM 8.6 mg/dL 8.4-10.4 PROTEIN 7.2 g/dL 6-8.6 ALBUMIN 3.6 g/dL 3.4-5 TOTAL BILIRUBIN 0.3 mg/dL 0.2-1.2 ALKALINE PHOSPHATASE 89 U/L 40-150 AST/SGOT 10 U/L 5-34 ALT/SGPT 13 U/L 8-40 EGFR (CKD-EPI 2020) 20 Vital Signs: All taken on the encounter date This section contains inpatient and outpatient Vital Signs collected on the date of the Encounter. Date/Time Temperature Pulse Blood Pressure Respiratory Rate SP02 Pain Height Weight Body Mass Index Source Mar 11, 2025 03:16 PM 97.9 92 122/87 [facility] Social History: Smoking Status (Most current) and Tobacco Use (All prior to encounter date) This section includes the most current, and the historical, smoking and tobacco- related health factors from the [place] facility where the Encounter took place. Current Smoking Status This section includes the most current smoking, or tobacco-related health factor, from the [place] facility where the Encounter took place. 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 The data comes from the [place] facility where the Encounter took place. Date/Time Smoking Status/Tobac co Use Comment Facility Dec 16, 2019 10:01 AM VA-TOBACCO USE ADVICE [facility] Dec 16, 2019 10:01 AM VA-TOBACCO USE COU NSEL YES Referral to Smoking Cessation [facility] Dec 16, 2019 10:01 AM VA-TOBACCO USE MED NOTIFY PROVIDER Has tried using gum to stop smoking,would like to try something [facility] Dec 16, 2019 10:01 AM VA-TOBACCO USE WI 30 MIN OF WAKEUP [facility] Dec 16, 2019 10:01 AM VA-TOBACCO USER EVERY DAY [facility] Dec 18, 2018 02:46 PM CURRENT TOBACCO USER [facility] Dec 13, 2018 10:59 AM CURRENT TOBACCO USER [facility] Dec 13, 2018 10:59 AM VA-TOBACCO USE 5 T O 15 YEARS [facility] Dec 13, 2018 10:59 AM VA-TOBACCO USE ADVICE [facility] Dec 13, 2018 10:59 AM VA-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 Date/Time Encounter Note(s) Provider Source May 09, 2025 02:19 PM NURSING PROGRESS N OTE: LOCAL TITLE: NURSING NOTE PB STANDARD TITLE: NURSING PROGRESS NOTE DATE OF NOTE: MAY 09, 2025@14:19 ENTRY DATE: MAY 09, 2025@14:20:02 AUTHOR: LUKAS BEAN EXP COSIGNER: URGENCY: STATUS: COMPLETED Attempted to call to follow up on recent hospital stay and see if has any follow up needs. Call went to [facility]. Let message for return call. /alexander/ LUKAS FERNANDO, [facility] Signed: 05/09/2025 14:22 LUKAS BEAN [facility] Mar 11, 2025 03:15 PM NURSING PROGRESS N OTE: LOCAL TITLE: NURSING NOTE PB STANDARD TITLE: NURSING PROGRESS NOTE DATE OF NOTE: MAR 11, 2025@15:15 ENTRY DATE: MAR 11, 2025@15:15:39 AUTHOR: LUKAS BEAN EXP COSIGNER: URGENCY: STATUS: COMPLETED Blood Pressure: 122/87 Pulse: 92 Temperature: 97.9 F (36.6 C) Pulse Oximetry: 100% Active Outpatient Medications: Active Outpatient Medications (including Supplies): Active Outpatient Medications Status 1) EMPAGLIFLOZIN 25MG TAB TAKE ONE TABLET BY MOUTH ONCE A DAY ACTIVE Indication: FOR DIABETES 2) EZETIMIBE 10MG TAB TAKE ONE TABLET BY MOUTH ONCE A DAY ACTIVE Indication: FOR HIGH CHOLESTEROL 3) FERROUS GLUCONATE 324MG TAB TAKE ONE TABLET BY MOUTH TWICE A ACTIVE DAY WITH MEALS Indication: FOR IRON DEFICIENCY ANEMIA 4) GLUCOSE SENSOR FREESTYLE NAHUM 3 PLUS USE SENSOR EVERY 15 ACTIVE DAYS CHANGE SENSOR/SITE EVERY 15 DAYS. TO REPLACE SENSOR FOR ANY REASON OR FOR TECHNICAL HELP PLEASE CALL [facility] DESK: -SPECIFIC PHONE NUMBER: [phone]). Indication: FOR BLOOD SUGAR MONITORING 5) INSULIN,ASPART(EQV-NOVLG)100U N/ML FLXPEN INJECT 10 UNITS ACTIVE UNDER THE SKIN THREE TIMES A DAY BEFORE MEALS ADMINISTER 10 MINUTES BEFORE FOOD DIRECTED. REFRIGERATE UN-OPENED PENS. DISCARD CARTRIDGE 28 DAYS AFTER OPENING. Indication: FOR DIABETES 6) INSULIN,GLARGINE 100 UNT/ML 3ML SOLOSTAR INJECT 20 UNITS OF ACTIVE (S) 100UNIT/ML UNDER THE SKIN ONCE A DAY ADMINISTER AT SAME TIME EACH DAY DIRECTED. DISCARD ANY OPEN CARTRIDGE AFTER 28 DAYS. DOSE ADJUSTMENT. NO EXTRA INSULIN NEEDED AT THIS TIME. Indication: FOR DIABETES 7) METFORMIN HCL 500MG 24HR SA TAB TAKE TWO TABLETS BY MOUTH ACTIVE TWICE A DAY WITH MEALS TAKE WITH FOOD. AVOID ALCOHOL. DISCONTINUE BEFORE GETTING XRAY DYE. Indication: FOR DIABETES 8) NICOTINE POLACRILEX 2MG MINI LOZENGE DISSOLVE 1 LOZENGE BY ACTIVE MOUTH EVERY 4 HOURS NEEDED .DO NOT SMOKE WHILE USING THIS MEDICATION. Indication: FOR TOBACCO CESSATION 9) PANTOPRAZOLE NA 40MG EC TAB TAKE ONE TABLET BY MOUTH EVERY ACTIVE (S) MORNING BEFORE A MEAL TAKE 30 MINUTES BEFORE MEAL(S) Indication: FOR GASTROESOPHAGEAL REFLUX DISEASE [place] states Empagliflozin, and metformin were discontinued during hospital stay at [facility] in [place] because of kidney function. Not taking either medication. Ceftriaxone 2GM daily IV via PICC at home with detention care. Sucralfate 1 Gram 3 times daily before meals for 7 days Reports taking other medications as prescribed. here today for hospital follow up visit. Recent hospitalization in [facility] for intractable nausea and vomiting, acute renal failure, anemia, s/p prostate abcess, diabetes, GERD, dehydration, and hyponatremia. Previous hospitalization for prostate abcess and sepsis. [place] reports he is feeling much better. Reports being able to eat without nausea and vomiting. Has had some episodes of constipation, now relieved after enema. Discussed with adding OTC stool softner to regimen, increasing dietary fiber, maintaining hydration, and prune juice as ways to help with constipation. reports blood glucose levels running 200's most of time. Education provided for diabetic diet. Hand outs given today ADA best food choices with diabetes and Plate method for diabetic. [place] reports understanding of all information. Declines dietary consult at current time. Discussed home IV therapy. Picc line intact with no signs of complications. [place] did have recent ER visit due to flushing difficulties. States resolved now. Follow up with specialist scheduled per for Dr. Schmitt urology, Dr. Mendez Infectious disease, and nephrology. Educated to keep all appointments. inquired about restarting empagliflozin, I asked him to verify with nephrology at appointment on . Labs today as previously ordered for chronic disease management. Pending. states he has no further needs at this time. /alexander/ LUKAS FERNANDO, [facility] Signed: 03/11/2025 15:36 Receipt Acknowledged By: 03/24/2025 15:58 /alexander/ LUKAS WALSH MD [facility] CBVIKI
--- OUTSIDE RECORDS SUMMARY | 2025-05-09 09:12 | XMS_ITS | Encounter Summary ---
Author Name [facility] [place] [facility] [place] [facility] [place] Address [address] [place] [address] Care Team Providers Care Clinical Trials Specialist Name Role Phone KRYSTAL YOUNG Primary Care [...] RX PRESCRIPT ION BAXTE R REGIO NAL MEDI Nov 19, [address] [facility] [id number] KEYSHAWN BERRY PATIENT PROCARE RX PRESCRIPT ION RX PLAN February 06, 2025 [phone] KEYSHAWN BERRY SPOUSE WEB TPA PREFERRED PROVIDER ORGANIZAT ION (PPO) BAXTE R REGIO NAL MEDI February 06, 20252018[facility] [id number] [phone] JEFFRY BERRY SPOUSE WEB TPA PREFERRED PROVIDER ORGANIZAT ION (PPO) BAXTE R REGIO NAL MEDI Nov 19, 20242018[facility] [id number] KEYSHAWN BERRY PATIENT Selected Encounter This section includes the information on record at [place] for the Encounter. Date/Time Encounter Type Encounter Description Reason Provider Source May 09, 2025 03:12 PM Outpatient Encounter ADMIN PAT ACTIVTIES (MASNONCT) KRYSTEN BARRIENTOS Sol Encounter Template Text not used by [place] Plan of Treatment: Future Appointments (+ 6 months) and Future Tests (+/- 45 days) The Plan of Treatment section includes future care activities for the patient from all [place] treatmentfaunc healthities. This section includes future appointments and future orders which are active, pending or scheduled. Future Appointments This section includes appointments that were scheduled to occur 6 months from the date of the Encounter, up to a maximum of 20 appointments. The data comes from all [place] treatment facilities. Appointment Date/Time Appointment Type Appointme nt Facility Name May 13, 2025 03:00 PM AMBULATORY - MEDICINE [facility] May 13, 2025 03:01 PM AMBULATORY - MEDICINE [facility] May 26, 2025 09:00 AM AMBULATORY - MEDICINE [facility] Jun 16, 2025 11:20 AM [facility] [place] [facility] Jul 04, 2025 09:30 AM [facility] Jul 09, 2025 09:15 AM AMBULATORY - MEDICINE [facility] Lab Results: +/- 30 days of the encounter This section includes the Chemistry and Hematology Lab Results on record with [place] for the patient. Radiology Reports and Pathology Reports are provided separately, in subsequent sections. Lab Results This section contains the Chemistry/Hematology Results that were resulted 30 days before or 30 daysafter the date of the Encounter. Date/Time Source Result Type Result - Unit Interpretation Reference Range Specimen Type Comment May 13, 2025 03:42 PM [facility] COMPREHENSIVE METABOLIC PANEL PLASMA Specimen Type: PLASMA No comment entered. Ordering Provider: ALIYAH OTERO Report Released Date/Time: May 13, 2025 03:39 PM Reporting Lab: [place] [facility] [address] [place] [address] Performing Lab: [place] [facility] [address] [place] [address] CREATININE 4.57 mg/dL H 0.7-1.3 UREA NITROGEN 63 mg/dL H 9-25 GLUCOSE 110 mg/dL H 72-99 SODIUM 141 meq/L 136-145 POTASSIUM 5.4 meq/L H 3.5-5 CHLORIDE 110 meq/L H 98-107 CARBON DIOXIDE 19 meq/L L 22-31 CALCIUM 8.7 mg/dL 8.4-10.4 PROTEIN 8.0 g/dL 6-8.6 ALBUMIN 4.1 g/dL 3.4-5 TOTAL BILIRUBIN 0.2 mg/dL 0.2-1.2 ALKALINE PHOSPHATASE 75 U/L 40-150 AST/SGOT 12 U/L 5-34 ALT/SGPT 11 U/L 8-40 EGFR (CKD-EPI 2020) May 13, 2025 03:42 PM [facility] CBC BLOOD Specimen Type: BLOOD No comment entered. Ordering Provider: ALIYAH OTERO Report Released Date/Time: May 13, 2025 03:39 PM Reporting Lab: [place] [facility] [address] [place] [facility] [address] Performing Lab: [place] [facility] [address] [facility] [place] [facility] [address] WBC 5.3 10*3/uL 3.6-11.2 RBC 3.46 10*6/uL L 4.10-5.70 HGB 9.0 g/dL L 13.1-16.8 HCT 29.2 L 38.2-48.4 MCV 84.4 fL 80.0-100.0 MCH 26.0 pg L 27.0-34.0 MCHC 30.8 g/dL L 33.0-36.0 PLT 350 10*3/uL 150-400 MPV 10.2 fL 7.5-11.2 RDW 13.2 11.8-15.1 LYMPHOCYTES, AUTO % 35.5 MONOCYTES, AUTO % 7.2 NEUTROPHILS, AUTO % 51.2 EOSINOPHILS, AUTO % 4.2 BASOPHILS, AUTO % 1.3 LYMPHOCYTES, ABSOLUTE 1.87 10*3/uL 0.77- 4.50 MONOCYTES, ABSOLUTE 0.38 10*3/uL 0.19-0. 8 NEUTROPHILS, ABSOLUTE 2.70 10*3/uL 2.10- 8.00 EOSINOPHILS, ABSOLUTE 0.22 10*3/uL 0.00- 0.60 BASOPHILS, ABSOLUTE 0.07 10*3/uL 0.00-0. 20 IMMATURE GRANS, AUTO % 0.6 IMMATURE GRANS, AUTO ABS 0.03 10*3/uL 0. 00-0.05 Social History: Smoking Status (Most current) and Tobacco Use (All prior to encounter date) This section includes the most current, and the historical, smoking and tobacco- related health factors from the [place] facility where the Encounter took place. Current Smoking Status This section includes the most current smoking, or tobacco-related health factor, from the [place] facility where the Encounter took place. Date/Time Current Smoking Status Comment Facil ity Jan 23, 2020 12:31 PM TOBACCO OFFERED PT MEDS (PROVIDE R) [place] [facility] Encounter Notes: All associated encounter notes This section contains the clinical notes associated to the Encounter. Date/Time Encounter Note(s) Provider Source May 09, 2025 03:12 PM NURSING NOTE: LOCAL TITLE: CARE COORDINATION REVIEW TEAM NOTE STANDARD TITLE: NURSING NOTE DATE OF NOTE: MAY 09, 2025@15:12 ENTRY DATE: MAY 09, 2025@15:13:08 AUTHOR: NICHELLE BARRIENTOS COSIGNER: URGENCY: STATUS: COMPLETED Care Coordination Review Team (CCRT) Notification Note Reason for Review: High risk: Other: 10 Non-VA ER visits, 4 hospitalizations in 6 months Utilization: Number of ER (VA & community) visits in last 12 months: 14 Triggers/root causes for ER visits: Flank pain, chest pain, RENNY, UTI, port issues, fever/elevated blood sugar, intractable N/V Ketosis Number of hospitalizations (VA & community) in last 12 months: 4 Triggers/root causes for hospitalizations: Type 2 DM with keoacidosis without coa, UTI/prostatic abscess/renal failure, pyelonephritis/RENNY, sepsis secondary to pyelonephritis Complexity Assessment: Recommended Level of Care Coordination: Complex Score: 27 The most prominent need of the is Self-Management. Program area/services and care coordinators, care managers or disability case manager whom the worked with prior to the assignment of a Lead Coordinator: [facility] Case Overview/Summary: [place] 44 year old non-[place]. Polypharmacy is a concern with multiple medications not being filled as prescribed. He currently receives non-VA services from GI General, Hem/Onc, Nephrology, Urology, infectious disease. 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 He sees multiple providers which could hinder care coordination. has been referred to [facility] for assitance with diabetes management. Team recommends continued education for diabetes management, bringing care back to the [facility] for better care coordination and follow up on experience with [facility]. Lead Coordinator Assignment Recommendation: Lead Coordinator: Kadie José RN Program: Primary Care CCRT Plan: CCRT Review Follow-Up Frequency: No anticipated need for follow-up needed by CCRT. Lead Coordinator may bring [place] back for CCRT review if needed. The assignment of the Lead Coordinator and education of the role in the [place]'s health care was not discussed with the . Reason: LC will outreach and obtain consent for assignment. /es/ DOUG Chavez, LIGHT INDUSTRIAL SUPERVISOR [facility] SW Co-Coordinator Signed: 05/09/2025 15:47 Receipt Acknowledged By: 05/23/2025 11:43 /es/ EJ BECERRIL LPN [facility] 05/19/2025 15:04 /es/ KADIE FERNANDO, RN [facility] 05/13/2025 13:53 /es/ RADHA OLMSTEAD CO-CHAMPION RN CC&ICM 05/12/2025 08:37 /es/ KASSIE ANAYA, RN [facility] RN Co-[place] 05/13/2025 21:26 /es/ NICHELLE JEFFERY MD [facility]
--- OUTSIDE RECORDS SUMMARY | 2025-05-13 08:40 | XMS_ITS ---
Author Organization [facility] Address [address] [place] [address] Care Team Providers Care Customer Servicer Name Role Phone Sil Gatica MD Primary Care Provider UnavailJess Russ Unavailable [phone] Jameel Schmitt Unavailable [phone] REASON FOR VISIT Next avail,cysto per Dr. Schmitt Encounters Encounter Location Date Provider Diagnosis [facility] [address] [place] [address] 05/13/2025 Jameel Schmitt Plan Of Treatment Next Appt Details Provider Name:Jameel freed, 09/23/2025 10:00:00 AM, [address], [place], [address], Provider Name:Jess sandoval, 09/29/2025 10:20:00 AM, [address] [place] [address] [address], [place], [address], Provider Name:Saurabh freed, 10/30/2025 01:00:00 PM, [address] [place] [address] [address], [place], [address], Provider Name:Chang García, 01/05/2026 09:40:00 AM, [address] [place] [address] [address], [place], [place], [address], Progress Notes * Robert MARTINEZ RDOB:1980 (44 yo M)Acc No.[id number]:05/13/2025 Patient: Robert King Provider: Kianna Schmitt MD :1980 A ge:44 Y S ex:Male Date:05/13/2025 Address:[address] [place] [address], [facility] Pcp:Sil Gatica MD Subjective: * Chief Complaints: * N ext avail,cysto per Dr. Schmitt * Electronic signature of Montez Schmitt MD on 08/13/2025 at 04:51 AM [employer] Sign off status: Pending * Provider: Kianna Schmitt MD Date: 0 05/13/2025 Generated for José Miguel burgess/Horacio/eTransmitting on: 1 10/13/2024 04:51 AM [employer]
--- OUTSIDE RECORDS SUMMARY | 2025-05-13 09:00 | XMS_ITS | Encounter Summary ---
Author Name [facility] Address [address] [place] [address] Care Team Providers Care Mgmt Analyst Name Role Phone KRYSTAL YOUNG Primary Care [...] RX PRESCRIPT ION BAXTE R REGIO NAL [facility] Nov 19, 2024 [facility] [id number] [phone] KEYSHAWN BERRY PATIENT PROCARE RX PRESCRIPT ION RX PLAN February 06, 2025 [id number] [phone] KEYSHAWN BERRY SPOUSE WEB TPA PREFERRED PROVIDER ORGANIZAT ION (PPO) BAXTE R REGIO NAL MEDI February 06, 20252018[facility] C [id number] [phone] JEFFRY BERRY SPOUSE WEB TPA PREFERRED PROVIDER ORGANIZAT ION (PPO) BAXTE R REGIO NAL MEDI Nov 19, 20242018[facility] C [id number] KEYSHAWN BERRY PATIENT Selected Encounter This section includes the information on record at NE for the Encounter. Date/Time Encounter Type Encounter Description Reason Provider Source May 13, 2025 03:00 PM TELEHEALTH FACILITY FEE PRIMARY CARE/MEDICINE ICD-10-CM N39.0 Urinary tract infection, site not specified KRYSTAL YOUNG Sol Encounter Template Text not used by NE Assessments - Encounter Diagnoses This section includes the primary and secondary diagnoses documented for the Encounter. Date/Time Primary/Secondary Diagnosis Diagnosis Name Provider Source May 15, 2025 11:20 AM PRIMARY Urinary tract infection, site not specified JONEEJ J [facility] Plan of Treatment: Future Appointments (+ 6 months) and Future Tests (+/- 45 days) The Plan of Treatment section includes future care activities for the patient from all [place] treatmentfacilities. This section includes future appointments and future orders which are active, pending or scheduled. Future Appointments This section includes appointments that were scheduled to occur 6 months from the date of the Encounter, up to a maximum of 20 appointments. The data comes from all [place] treatment facilities. Appointment Date/Time Appointment Type Appointme nt Facility Name Jun 16, 2025 11:20 AM AMBULATORY - MEDICINE [facility] Jul 04, 2025 09:30 AM [facility] Jul 09, 2025 09:15 AM AMBULATORY - MEDICINE [facility] Lab Results: +/- 30 days of the encounter This section includes the Chemistry and Hematology Lab Results on record with NE for the patient. Radiology Reports and Pathology Reports are provided separately, in subsequent sections. Lab Results This section contains the Chemistry/Hematology Results that were resulted 30 days before or 30 daysafter the date of the Encounter. Date/Time Source Result Type Result - Unit Interpretation Reference Range Specimen Type Comment May 13, 2025 03:42 PM [facility] COMPREHENSIVE METABOLIC PANEL PLASMA Specimen Type: PLASMA No comment entered. Ordering Provider: ALIYAH OTERO Report Released Date/Time: May 13, 2025 03:39 PM Reporting Lab: [facility] [address] [place] [address] Performing Lab: [place] [facility] [address] [place] [address] CREATININE 4.57 mg/dL H 0.7-1.3 UREA NITROGEN [...] (CKD-EPI 2020) May 13, 2025 03:42 PM [facility] CBC BLOOD Specimen Type: BLOOD No comment entered. Ordering Provider: ALIYAH OTERO Report Released Date/Time: May 13, 2025 03:39 PM Reporting Lab: [place] [facility] [address] [place] [facility] [address] Performing Lab: [place] [facility] [address] [place] [facility] [address] WBC 5.3 10*3/uL 3.6-11.2 RBC 3.46 10*6/uL [...] GRANS, AUTO ABS 0.03 10*3/uL 0. 00-0.05 Vital Signs: All taken on the encounter date This section contains inpatient and outpatient Vital Signs collected on the date of the Encounter. Date/Time Temperature Pulse Blood Pressure Respiratory Rate SP02 Pain Height Weight Body Mass Index Source May 13, 2025 03:28 PM 138/88 mm[Hg] [facility] May 13, 2025 03:28 PM 148/86 mm[Hg] [facility] May 13, 2025 03:28 PM 98.2 F 80 /min 149/89 mm[Hg] 20 /min 100 % 0 183.1 lb 26 [facility] Social History: Smoking Status (Most current) and Tobacco Use (All prior to encounter date) This section includes the most current, and the historical, smoking and tobacco- related health factors from the NE facility where the Encounter took place. Current Smoking Status This section includes the most current smoking, or tobacco-related health factor, from the NE facility where the Encounter took place. Date/Time Current Smoking Status Comment [facility] May 13, 2025 03:00 PM VA-TOBACCO USE FORMER CIGARETTES [facility] Tobacco Use History This section includes a history of the smoking, or tobacco-related health factors, that were collected on or before the date of the Encounter. The data comes from the NE facility where the Encounter took place. Date/Time Smoking Status/Tobac co Use Comment Facility May 13, 2025 03:00 PM VA-TOBACCO USE GUILLERMINA RY DAY OTHER TYPE [facility] May 13, 2025 03:00 PM VA-TOBACCO USE FOR GRACIE CIGARETTES [facility] Dec 16, 2019 10:01 AM VA-TOBACCO USE > 1 5 LESS THAN 30 YEARS [facility] Dec 16, 2019 10:01 AM VA-TOBACCO USE ADVICE [facility] Dec 16, 2019 10:01 AM VA-TOBACCO USE COU NSEL YES Referral to Smoking Cessation [facility] Dec 16, 2019 10:01 AM VA-TOBACCO USE MED NOTIFY PROVIDER Has tried using gum to stop smoking,would like to try something [facility] Dec 16, 2019 10:01 AM VA-TOBACCO USE WI 30 MIN OF WAKEUP [facility] Dec 16, 2019 10:01 AM VA-TOBACCO USER EVERY DAY [facility] Dec 18, 2018 02:46 PM CURRENT TOBACCO USER [facility] Dec 13, 2018 10:59 AM CURRENT TOBACCO USER [facility] Dec 13, 2018 10:59 AM VA-TOBACCO USE 5 T O 15 YEARS [facility] Dec 13, 2018 10:59 AM VA-TOBACCO USE ADVICE [facility] Dec 13, 2018 10:59 AM VA-TOBACCO USE 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 Date/Time Encounter Note(s) Provider Source May 13, 2025 03:14 PM PRIMARY CARE NURSI NG NOTE: LOCAL TITLE: PRIMARY CARE NURSING PROGRESS NOTE (TEXT) NURSING P STANDARD TITLE: PRIMARY CARE NURSING NOTE DATE OF NOTE: MAY 13, 2025@15:14 ENTRY DATE: MAY 13, 2025@15:14:55 AUTHOR: EJ MOODYIGNER: URGENCY: STATUS: COMPLETED Established Patient SHANEL BERRY IS A 44 YEAR OLD MALE BEING SEEN IN CLINIC MAY 13, 2025. = = REASON FOR VISIT: ER follow up for fever, and elevated BS. Are you receiving care any where other than the [facility]? Yes, List: Dr. LeeUrojessica Henson HEALTH AND SURGICAL HISTORY: Does patient report using home oxygen? CURRENT ACTIVE MEDICATIONS FOR REVIEW: If the list for review does not include a component, then it was not applicable to this patient. Allergies/ADRs (Tool #5) FACILITY ALLERGY/ADR -------- No Remote Allergy/ADR Data available for this patient [facility] Med. Reconciliation (Tool #1) INCLUDED IN THIS LIST: Alphabetical list of active outpatient prescriptions dispensed from this NE (local) and dispensed from another NE or [facility] facility (remote) as well as inpatient orders (local pending and active), local clinic medications, locally documented non-VA medications, and local prescriptions that have or been discontinued in the past 90 days. Non-VA Meds Last Documented On: Data not found NOTE The display of VA prescriptions dispensed from another NE or [facility] facility (remote) is limited to active outpatient prescription entries matched to National Drug File at the originating site and may not include some items such as investigational drugs, compounds, etc. NOT INCLUDED IN THIS LIST: Medications self-entered by the patient into personal health records (i.e. People[employer]) are NOT included in this list. Non-VA medications documented outside this NE, remote inpatient orders (regardless of status) and remote clinic medications are NOT included in this list. The patient and provider must always discuss medications the patient is taking, regardless of where the medication was dispensed or obtained. OUTPT EMPAGLIFLOZIN 25MG TAB (Status = Discontinued) TAKE ONE TABLET BY MOUTH ONCE A DAY FOR DIABETES Rx# [id number] Last Released: 02/05/25 Qty/Days Supply: Rx Expiration Date: 02/04/26 Refills Remainin Indication: FOR DIABETES OUTPT EMPAGLIFLOZIN 25MG TAB (Status = Active) TAKE ONE-HALF TABLET BY MOUTH EVERY MORNING FOR DIABETES Rx# [id number] Last Released: 04/17/25 Qty/Days Supply: Rx Expiration Date: 03/18/26 Refills Remainin Indication: FOR DIABETES OUTPT EZETIMIBE 10MG TAB (Status = Discontinued) TAKE ONE TABLET BY MOUTH ONCE A DAY FOR HIGH CHOLESTEROL Rx# [id number] Last Released: 02/04/25 Qty/Days Supply: 90 Rx Expiration Date: 02/04/26 Refills Remainin Indication: FOR HIGH CHOLESTEROL OUTPT FERROUS GLUCONATE 324MG TAB (Status = Active) TAKE ONE TABLET BY MOUTH TWICE A DAY WITH MEALS FOR IRON DEFICIENCY ANEMIA Rx# [id number] Last Released: 01/22/25 Qty/Days Supply: 200/ Rx Expiration Date: 01/21/26 Refills Remainin Indication: FOR IRON DEFICIENCY ANEMIA OUTPT INSULIN,ASPART(EQV-NOVLG)100 UN/ML FLXPEN (Status = Active) INJECT 10 UNITS UNDER THE SKIN THREE TIMES A DAY BEFORE MEALS FOR DIABETES ADMINISTER 10 MINUTES BEFORE FOOD DIRECTED. REFRIGERATE UN-OPENED PENS. DISCARD CARTRIDGE 28 DAYS AFTER OPENING. Rx# [id number] Last Released: 01/22/25 Qty/Days Supply: Rx Expiration Date: 01/21/26 Refills Remainin Indication: FOR DIABETES OUTPT INSULIN,GLARGINE 100 UNT/ML 3ML SOLOSTAR (Status = Active) INJECT 20 UNITS OF 100UNIT/ML UNDER THE SKIN ONCE A DAY FOR DIABETES ADMINISTER AT SAME TIME EACH DAY DIRECTED. DISCARD ANY OPEN CARTRIDGE AFTER 28 DAYS. DOSE ADJUSTMENT. NO EXTRA INSULIN NEEDED AT THIS TIME. Rx# [id number] Last Released: 03/18/25 Qty/Days Supply: Rx Expiration Date: 01/08/26 Refills Remainin Indication: FOR DIABETES OUTPT METFORMIN HCL 500MG 24HR SA TAB (Status = Discontinued) TAKE TWO TABLETS BY MOUTH TWICE A DAY WITH MEALS FOR DIABETES TAKE WITH FOOD. AVOID ALCOHOL. DISCONTINUE BEFORE GETTING XRAY DYE. Rx# [id number] Last Released: 01/22/25 Qty/Days Supply: 360/ Rx Expiration Date: 01/21/26 Refills Remainin Indication: FOR DIABETES OUTPT NICOTINE POLACRILEX 2MG MINI LOZENGE (Status = Active) DISSOLVE 1 LOZENGE BY MOUTH EVERY 4 HOURS NEEDED FOR TOBACCO CESSATION .DO NOT SMOKE WHILE USING THIS MEDICATION. Rx# [id number] Last Released: 02/04/25 Qty/Days Supply: Rx Expiration Date: 02/04/26 Refills Remainin Indication: FOR TOBACCO CESSATION OUTPT PANTOPRAZOLE NA 40MG EC TAB (Status = Active/Suspended) TAKE ONE TABLET BY MOUTH EVERY MORNING BEFORE A MEAL FOR GASTROESOPHAGEAL REFLUX DISEASE TAKE 30 MINUTES BEFORE MEAL(S) Rx# [id number] Last Released: 03/14/25 Qty/Days Supply: Rx Expiration Date: 01/07/26 Refills Remainin Indication: FOR GASTROESOPHAGEAL REFLUX DISEASE OUTPT ROSUVASTATIN CA 10MG TAB (Status = Active/Suspended) TAKE ONE TABLET BY MOUTH EVERY EVENING FOR HIGH CHOLESTEROL Rx# [id number] Last Released: 03/18/25 Qty/Days Supply: Rx Expiration Date: 03/18/26 Refills Remainin Indication: FOR HIGH CHOLESTEROL SUPPLIES OUTPT GLUCOSE SENSOR FREESTYLE NAHUM 3 PLUS (Status = Active) USE SENSOR EVERY 15 DAYS FOR BLOOD SUGAR MONITORING CHANGE SENSOR/SITE EVERY 15 DAYS. TO REPLACE SENSOR FOR ANY REASON OR FOR TECHNICAL HELP PLEASE CALL [facility] HELP DESK: -SPECIFIC PHONE NUMBER: ([phone]). Rx# [id number] Last Released: 04/14/25 Qty/Days Supply: Rx Expiration Date: 01/21/26 Refills Remainin Indication: FOR BLOOD SUGAR MONITORING PHARMACY TERMS AND POSSIBLE PATIENT ACTIONS INPT = NE inpatient order IV = NE intravenous medication OUTPT = VA outpatient prescription PHARMACY POSSIBLE PATIENT TERMS EXPLANATION ACTIONS -------- ---- ACTIVE A prescription that can be If you have refills, filled at the local NE pharmacy. you may request a refill of this prescription from your VA pharmacy. CLINIC A medication you received during If you have questions a visit to a VA clinic or about this medication emergency department. contact your NE healthcare team. DISCONTINUED A prescription your provider has Contact your VA stopped. It is no longer healthcare team if you available to be sent to you or need more of this picked up at the NE pharmacy medication. window. A prescription which is too old Contact your VA to fill. This does not refer to healthcare team if you the expiration date of the need more of this medication in the container. medication. NON-VA A medication that came from If this medication someplace other than a VA information is pharmacy. This may be a incorrect or out of prescription from either the VA date, please tell your or non VA providers that was VA healthcare team. filled outside the VA. Or, it may be an ksil-dat-ufnyikm (OTC), herbal, dietary supplements or sample medication. ON HOLD An active prescription that will Contact your VA not be filled until pharmacy pharmacy when you need resolves the issue. more of this medication. PARKED An active prescription that will Contact your VA not be filled until the patient pharmacy when you need requests it. this medication. PENDING This prescription order has been If you have been sent to the pharmacy for review instructed to start and is not ready yet. this medication now, contact your VA pharmacy. SUSPENDED An active prescription that is Contact your NE not scheduled to be filled yet. pharmacy if you need You should receive it before this medication now. you run out. Medication list reviewed with Patient Patient/Caregiver reports taking medications as ordered. IS PATIENT TAKING ANY OVER THE COUNTER MEDICATIONS, SUCH VITAMINS OR HERBAL SUPPLEMENTS, INCLUDING ANY MEDICATIONS PRESCRIBED BY ANOTHER PHYSICIAN? No Does patient have any new allergies to report since last visit? NO VITALS: TEMPERATURE: 97.9 F [36.6 C] (03/11/2025 15:16) BP: 122/87 (03/11/2025 15:16) RESP: 20 (01/28/2025 13:19) PULSE: 92 (03/11/2025 15:16) HT: 70 in [177.8 cm] (12/13/2018 10:57) WT: 183 lb [83.01 kg] (01/28/2025 13:19) BMI: 26.3 PAIN ASSESSMENT: (Most Recent Pain Score in Vitals Package: 3 (01/28/2025 13:19) ) The patient indicated that they and their close contacts have not traveled outside of the [place] in the past 21 days. The patient reports the following symptoms: No symptoms present The patient is not immunocompromised. The patient does not report having a history of Multi Drug Resistant Organism (MDRO) within the last five years. The patient does not report having been exposed to measles, chickenpox, or zoster in last 30 days. Patient reports no pain at this visit. Pain Score = 0. STRESS: Thank you for your service. Now let us serve you. At the [facility], we strive to provide you with exceptional health care that improves your health and well-being. Are you feeling sad, empty, or depressed? No Do you need to talk about things in your life that worry you or cause you stress? No Do you need to talk about personal problems, family problems, alcohol use, drug use, or mental or emotional illness? No SUICIDE SCREENING: The patient was asked, Over the past two weeks, how often have you been bothered by thoughts that you would be better off or of hurting yourself in some way? Not At All SPIRITUAL ASSESSMENT: Are there anabaptist practices or spiritual concerns you want the progress worker, your physician, and other health care team members to immediately know about? No Patient advised to call the clinic for any concerns, questions, or symptoms. Patient and/or caregiver verbalized understanding of plan of care. Per [facility] Directive 1605.06, wristband documentation: Patient wristband was removed and destroyed by (staff name) Ej Moody and placed in the designated [employer] bin. Alcohol Use Screen (AUDIT-C) - V: Alcohol Screen: SCREEN FOR ALCOHOL (AUDIT-C) An alcohol screening test (AUDIT-C) was negative (score=2). 1. How often did you have a drink containing alcohol in the past year? Consider a drink to be a 12 ounce can or bottle of regular beer, 8 ounces of malt liquor, a 5 ounce glass of table wine, or a 1.5 ounce shot of liquor (like scotch, gin, or vodka). Monthly or less 2. How many drinks containing alcohol did you have on a typical day when you were drinking in the past year? One or two drinks 3. How often did you have six or more drinks on one occasion in the past year? Less than monthly Tobacco Use Screening - AT,DE,L,M,N,P,PH,PS,RT,S,U: The patient is a former cigarette smoker. The patient uses other type(s) of tobacco every day. Other Tobacco Type(s) used: Electronic Nicotine Delivery System (ENDS) (e.g., e-cigarettes/vape pens) Influenza Immunization - L,N,P,PH,U: No influenza vaccination was received during the recent influenza season. Homelessness/Food Insecurity Screen - DI,L,N,P,PH,PS,S,U: In the past 2 months, have you been living in stable housing that you own, rent, or stay in as part of a household? Yes - Living in stable housing. Are you worried or concerned that in the next 2 months you may NOT have stable housing that you own, rent, or stay in as part of a household? No - Not worried about housing near future The [place] reports the following: Within the past 12 months, you worried whether your food would run out before you got money to buy more. Never true Within the past 12 months, the food you bought just didn't last and you didn't have money to get more. Never true Advanced Directive Screen/Student Development Dean: ADVANCE DIRECTIVE SCREENING: I asked if the patient has an advance directive, and determined that: Patient does not have an Advance Directive. Patient was given form to update and return when completed. ADVANCE DIRECTIVE NOTIFICATION I provided the patient with written notification about advance directives. Level of understanding: Good MOVE Weight Management: Most recent BMI: 26.3. educated on health risk of obesity and treatment is offered. Participation in a weight management program was considered/offered for this patient based on the current BMI score. Patient declines participation in a weight management program. Pneumococcal Conjugate Vaccine (PCV15/PCV20/PCV21) - L,N,P,PH,U: Refuses PCV vaccine Immunization: PNEUMOCOCCAL CONJUGATE, UNSPECIFIED FORMULATION Refusal Reason: PATIENT DECISION Patient refuses all immunization(s) in the PneumoPCV group Date Documented: 05/13/25 15:34 VVC DIGITAL DIVIDE CAPABILITY REMINDER: Patient is not interested in VVC at this time. 'S RIGHT TO DECLINE STATEMENT [place] understands they have the right to decline the use of Telehealth Technology at any time without adverse affects on their continued access to healthcare. Patient/Nurse Interview: * * Patient stated that adequate information was received regarding the condition and/or treatment. PAVE Foot Check - L,N,P,PH,PO,PT,U: A complete foot check was completed at this encounter. VISUAL INSPECTION: Includes inspection for skin breaks, deformity, erythema, trauma, pallor on elevation, dependent rubor, nail deformities, extensive callus and pitting edema. Visual exam results: Normal PEDAL PULSES: Includes palpation of dorsalis and posterior tibial pulses and signs/symptoms of vascular compromise like pain, pallor, paresthesia or paralysis. Present (even if diminished) SENSORY CHECK: Includes 10 gram Monofilament ([place]-Juancarlos) test of sensation. Intact (Greater than or equal to 80% of sites checked) Abnormal (Less than 80% of sites checked): Intact LOW-RISK: LOW RISK INFORMATION PROVIDED: 1. Advised patient not to walk barefoot. 2. Explained the importance of daily foot checks for changes. 3. Stressed the importance of daily foot hygiene, including bathing and complete drying. The patient verbalized understanding and was offered a detailed handout on diabetic foot care. /es/ EJ MOODY LPN [facility] Signed: 05/13/2025 15:34 [facility]
--- OUTSIDE RECORDS SUMMARY | 2025-05-13 09:01 | XMS_ITS | Encounter Summary ---
Author Name [facility] [place] [facility] [place] Organization [facility] [place] Address [address] [place] [address] Care Team Providers Care Dental Professional Name Role Phone KRYSTAL YOUNG Primary Care [...] R REGIO NAL MEDI Nov 19, 2024 [facility] [id number] KEYSHAWN BERRY PATIENT PROCARE RX PRESCRIPT ION RX PLAN February 06, 2025 [id number] [phone] KEYSHAWN BERRY SPOUSE WEB TPA PREFERRED PROVIDER ORGANIZAT ION (PPO) BAXTE R REGIO NAL MEDI February 06, 20252018[facility] C [id number] [phone] JEFFRY BERRY SPOUSE WEB TPA PREFERRED PROVIDER ORGANIZAT ION (PPO) BAXTE R REGIO NAL MEDI Nov 19, 20242018[facility] [id number] [phone] KEYSHAWN BERRY AD PATIENT Selected Encounter This section includes the information on record at [place] for the Encounter. Date/Time Encounter Type Encounter Description Reason Provider Source May 13, 2025 03:01 PM OFFICE O/P EST MOD 30 MIN PRIMARY CARE/MEDICINE ICD-10-CM N39.0 Urinary tract infection, site not specified KRYSTAL YOUNG Encounter Template Text not used by [place] Assessments - Encounter Diagnoses This section includes the primary and secondary diagnoses documented for the Encounter. Date/Time Primary/Secondary Diagnosis Diagnosis Name Provider Source May 13, 2025 08:31 PM PRIMARY Urinary tract infection, site not specified KRYSTAL YOUNG [facility] May 13, 2025 08:31 PM SECONDARY Abscess of prostate [facility] May 13, 2025 08:31 PM SECONDARY Type 2 diabetes mellitus with hyperglycemia K[facility]STAL YOUNG [facility] Plan of Treatment: Future Appointments (+ 6 months) and Future Tests (+/- 45 days) The Plan of Treatment section includes future care activities for the patient from all [place] treatmentfacilities. This section includes future appointments and future orders which are active, pending or scheduled. Future Appointments This section includes appointments that were scheduled to occur 6 months from the date of the Encounter, up to a maximum of 20 appointments. The data comes from all [place] treatment facilities. Appointment Date/Time Appointment Type Appointme nt Facility Name Jun 16, 2025 11:20 AM AMBULATORY - MEDICINE [facility] Jul 04, 2025 09:30 AM AMBULATORY - MEDICINE [facility] Jul 09, 2025 09:15 AM AMBULATORY - MEDICINE [facility] Lab Results: +/- 30 days [...] Type Comment May 13, 2025 03:42 PM [facility] COMPREHENSIVE METABOLIC PANEL PLASMA Specimen Type: PLASMA No comment entered. Ordering Provider: ALIYAH OTERO Report Released Date/Time: May 13, 2025 03:39 PM Reporting Lab: [place] [facility] [address] [place] [address] Performing Lab: [place] [facility] [address] [place] [address] CREATININE 4.57 mg/dL H 0.7-1.3 UREA NITROGEN [...] ALT/SGPT 11 U/L 8-40 EGFR (CKD-EPI 2020) 15 May 13, 2025 03:42 PM [facility] CBC BLOOD Specimen Type: BLOOD No comment entered. Ordering Provider: ALIYAH OTERO Report Released Date/Time: May 13, 2025 03:39 PM Reporting Lab: [place] [facility] [address] [place] [address] Performing Lab: [facility] [address] [place] [address] WBC 5.3 10*3/uL 3.6-11.2 RBC 3.46 10*6/uL [...] May 13, 2025 03:28 PM 138/88 mm[Hg] [facility] May 13, 2025 03:28 PM 148/86 mm[Hg] [facility] May 13, 2025 03:28 PM 98.2 F 80 /min 149/89 mm[Hg] 20 /min 100 % 0 183.1 lb 26 [facility] Social History: Smoking Status (Most [...] took place. Date/Time Current Smoking Status Comment Yusuf cummins May 13, 2025 03:00 PM VA-TOBACCO USE FORMER CIGARETTES [facility] Tobacco Use History This section includes a history of the smoking, or tobacco-related health factors, that were collected on or before the date of the Encounter. The data comes from the [place] facility where the Encounter took place. Date/Time Smoking Status/Tobac co Use Comment Facility May 13, 2025 03:00 PM VA-TOBACCO USE GUILLERMINA RY DAY OTHER TYPE [facility] May 13, 2025 03:00 PM VA-TOBACCO USE FOR GRACIE CIGARETTES [facility] Dec 16, 2019 10:01 AM VA-TOBACCO USE > 1 5 LESS THAN 30 YEARS [facility] Dec 16, 2019 10:01 AM VA-TOBACCO USE ADVICE [facility] Dec 16, 2019 10:01 AM VA-TOBACCO USE COU NSEL YES Referral to Smoking Cessation [facility] Dec 16, 2019 10:01 AM VA-TOBACCO USE MED NOTIFY PROVIDER Has tried using gum to stop smoking,would like to try something [facility] Dec 16, 2019 10:01 AM VA-TOBACCO USE WI 30 MIN OF WAKEUP [place] [place] [facility] Dec 16, 2019 10:01 AM VA-TOBACCO USER EVERY DAY [facility] Dec 18, 2018 02:46 PM CURRENT TOBACCO USER [facility] Dec 13, 2018 10:59 AM CURRENT TOBACCO USER [facility] Dec 13, 2018 10:59 AM VA-TOBACCO USE 5 T O 15 YEARS [facility] Dec 13, 2018 10:59 AM VA-TOBACCO USE ADVICE [facility] Dec 13, 2018 10:59 AM VA-TOBACCO USE LOAN ANALYST NO [facility] Dec 13, 2018 10:59 AM VA-TOBACCO USE MED NO [facility] Dec 13, 2018 10:59 AM VA-TOBACCO USE WI 30 MIN OF WAKEUP [facility] Dec 13, 2018 10:59 AM VA-TOBACCO USER EVERY DAY [facility] Jul 06, 2010 01:01 PM CURRENT TOBACCO USER [facility] Encounter Notes: All associated encounter notes This section contains the clinical notes associated to the Encounter. Date/Time Encounter Note(s) Provider Source May 13, 2025 03:18 PM PRIMARY CARE PROGR ESS NOTE: LOCAL TITLE: PRIMARY CARE CLINIC PROGRESS NOTE STANDARD TITLE: PRIMARY CARE PROGRESS NOTE DATE OF NOTE: MAY 13, 2025@15:18 ENTRY DATE: MAY 13, 2025@20:18:35 AUTHOR: KRYSTAL YOUNG COSIGNER: URGENCY: STATUS: COMPLETED is presenting to the clinic today for his/her Telehealth appointment as scheduled. Busby was assured that the Telehealth visit is a private, confidential clinical encounter and will not be recorded. The Telehealth process, procedures and expectations were explained to the patient, allowing Busby time to voice any concerns. Busby voiced understanding and consented to the Clinic visit. The visit proceeded without difficulty. Provider Assessment Date & Time:May@15:18 Chief Complaint: Acute visit ED follow-up Subjective: ER follow up for fever, and elevated BS. Patient had a UTI he states. Had kidney infection. Saw urologist Addison in our patient had he states that he has another follow-up with him in 1 also he states he had an abscess of the prostate. Is supposed to meet up with [facility] his infectious disease doctor Blood pressures were a little bit on the higher side . He supposed to get a try PAST MEDICAL HISTORY: 1) Disorder due to type 2 diabetes mellitus (SNOMED CT 343996849) 2) Routine Medical Exam 3) Current heavy tobacco smoker 4) Erectile dysfunction 5) Exposure to potentially hazardous substance ([facility] [id number]) 6) Anemia ([facility] [id number]) ALLERGY HISTORY:POISON ANDERSON ACTIVE MEDICATIONS:Active Outpatient Medications (including Supplies): EMPAGLIFLOZIN 25MG TAB TAKE ONE-HALF TABLET BY MOUTH EVERY ACTIVE MORNING Indication: FOR DIABETES FERROUS GLUCONATE 324MG TAB TAKE ONE TABLET BY MOUTH TWICE ACTIVE A DAY WITH MEALS Indication: FOR IRON DEFICIENCY ANEMIA GLUCOSE SENSOR [employer] NAHUM 3 PLUS USE SENSOR EVERY ACTIVE 15 DAYS CHANGE SENSOR/SITE EVERY 15 DAYS. TO REPLACE SENSOR FOR ANY REASON OR FOR TECHNICAL HELP PLEASE CALL [employer] HELP DESK: -SPECIFIC PHONE NUMBER: ([phone]). Indication: FOR BLOOD SUGAR MONITORING INSULIN,ASPART(EQV-NOVLG)100UN /ML FLXPEN INJECT 10 UNITS ACTIVE UNDER THE SKIN THREE TIMES A DAY BEFORE MEALS ADMINISTER 10 MINUTES BEFORE FOOD DIRECTED. REFRIGERATE UN-OPENED PENS. DISCARD CARTRIDGE 28 DAYS AFTER OPENING. Indication: FOR DIABETES INSULIN,GLARGINE 100 UNT/ML 3ML SOLOSTAR INJECT 20 UNITS ACTIVE OF 100UNIT/ML UNDER THE SKIN ONCE A DAY ADMINISTER AT SAME TIME EACH DAY DIRECTED. DISCARD ANY OPEN CARTRIDGE AFTER 28 DAYS. DOSE ADJUSTMENT. NO EXTRA INSULIN NEEDED AT THIS TIME. Indication: FOR DIABETES NICOTINE POLACRILEX 2MG MINI LOZENGE DISSOLVE 1 LOZENGE BY ACTIVE MOUTH EVERY 4 HOURS NEEDED .DO NOT SMOKE WHILE USING THIS MEDICATION. Indication: FOR TOBACCO CESSATION PANTOPRAZOLE NA 40MG EC TAB TAKE ONE TABLET BY MOUTH EVERY ACTIVE (S) MORNING BEFORE A MEAL TAKE 30 MINUTES BEFORE MEAL(S) Indication: FOR GASTROESOPHAGEAL REFLUX DISEASE ROSUVASTATIN CA 10MG TAB TAKE ONE TABLET BY MOUTH EVERY ACTIVE (S) EVENING Indication: FOR HIGH CHOLESTEROL REVIEW OF SYSTEMS: HEENT: RESPIRATORY: No shortness of breath, cough or sputum. CARDIOVASCULAR: No chest pain or palpitation., Blood pressure is normal GI: No abdominal pain, nausea, vomiting or bowel changes. MUSCULOSKELETAL: SKIN: : No urinary symptoms., Other:on cipro few days left PSYCH: Objective: Vital Signs: 98.2 F [36.8 C] (05/13/2025 15:28) 80 (05/13/2025 15:28) 20 (05/13/2025 15:28) 138/88 (05/13/2025 15:28) 0 (05/13/2025 15:28) 70 in [177.8 cm] (12/13/2018 10:57) 183.1 lb [83.05 kg] (05/13/2025 15:28) HEENT: Sclera clear NECK: LUNGS: Regular, Unlabored, Clear, Room Air CARDIOVASCULAR: Normal rhythm and heart sounds S1 and S2 ABDOMEN: No tenderness EXTREMITIES and MUSCULOSKELETAL: NEURO: Mental Status: Alert/Oriented X3 Recent Labs: CBC: WBC 6.3 10*3/uL 03/11/2025 09:31 RBC 3.41 L 10*6/uL 03/11/2025 09:31 HGB 8.7 L g/dL 03/11/2025 09:31 HCT 27.1 L % 03/11/2025 09:31 MCV 79.5 L fL 03/11/2025 09:31 MCH 25.5 L pg 03/11/2025 09:31 MCHC 32.1 L g/dL 03/11/2025 09:31 RDW 18.0 H % 03/11/2025 09:31 PLT 263 10*3/uL 03/11/2025 09:31 MPV 10.3 fL 03/11/2025 09:31 NEUTROPHILS, AUTO % 61.6 % 03/11/2025 09:31 LYMPHOCYTES, AUTO % 20.7 % 03/11/2025 09:31 MONOCYTES, AUTO % 7.3 % 03/11/2025 09:31 EOSINOPHILS, AUTO % 9.0 % 03/11/2025 09:31 BASOPHILS, AUTO % 0.8 % 03/11/2025 09:31 IMMATURE GRANS, AUTO % 0.6 % 03/11/2025 09:31 NEUTROPHILS, ABSOLUTE 3.90 10*3/uL 03/11/2025 09:31 LYMPHOCYTES, ABSOLUTE 1.31 10*3/uL 03/11/2025 09:31 MONOCYTES, ABSOLUTE 0.46 10*3/uL 03/11/2025 09:31 EOSINOPHILS, ABSOLUTE 0.57 10*3/uL 03/11/2025 09:31 BASOPHILS, ABSOLUTE 0.05 10*3/uL 03/11/2025 09:31 IMMATURE GRANS, AUTO ABS 0.04 10*3/uL 03/11/2025 09:31 LFT: TOTAL BILIRUBIN 0.3 mg/dL 03/11/2025 09:31 ALKALINE PHOSPHATASE 89 U/L 03/11/2025 09:31 PROTEIN 7.2 g/dL 03/11/2025 09:31 ALBUMIN 3.6 g/dL 03/11/2025 09:31 10 U/L (03/11/25 09:31) 13 U/L (03/11/25 09:31) CHEM 7: SODIUM 134 L mEq/L 03/11/2025 09:31 POTASSIUM 4.4 mEq/L 03/11/2025 09:31 CHLORIDE 101 mEq/L 03/11/2025 09:31 UREA NITROGEN 55 H mg/dL 03/11/2025 09:31 CREATININE 3.62 H mg/dL 03/11/2025 09:31 CALCIUM 8.6 mg/dL 03/11/2025 09:31 CARBON DIOXIDE 22 mEq/L 03/11/2025 09:31 GLUCOSE 161 H mg/dL 03/11/2025 09:31 EGFR (CKD-EPI 2020) 20 03/11/2025 09:31 CHEM: CHOLESTEROL 134 mg/dL 03/11/2025 09:31 PSA: No PSA EO data found B12 443 pg/mL 03/11/2025 09:31 VITAMIN D, 25-HYDROXY 40.3 ng/mL 03/11/2025 09:31 VITAMIN D, 25-HYDROXY 37.8 ng/mL 01/06/2025 11:38 Magnesium 2.38 mg/dL (03/11/25 09:31) No URINE DRUG SCREEN EO data found CREATININE URINE/OTHERS 31.44 mg/dL 03/11/2025 09:31 CREATININE URINE/OTHERS 45.78 mg/dL 01/06/2025 11:38 No data available for: TRAMADOL No data available for: TRAMADOL No BUPRENORPHINE EO data found A/P: ASSESSMENT and PLAN follow up on hospital dc from [facility] in [place] [facility] for Sepsis UTI Acute kidney failure Prostate abscess supposed to see Dr. Rodriguez infectious disease in [facility] -Follow-up with Dr. Santana nephrology -Sees urologist as well. Just saw him catheter removed.has fu scheduled again in 1 week -Has a valid auth with infectious disease, Dr Mendez. per Madiha Glover, RN in consult -has had hx of same = Admitted to [facility] from 02/07/25 - 02/14/25, recurrent UTIs, prostate abscess. Followed up with Dr. Mendez on 03/06/25 at 1245. recommended to finish all of the cipro, and keep specialist appointments -will get labs today -Follow-up with me every July for annual exam and annual labs -Follow-up with me as needed SUMMARY STATEMENT: Plan of care has been discussed with including expected therapeutic benefits and potential side effects of prescribed medication and treatments. Busby verbalizes understanding and is in agreement with the plan of care. Patient was instructed to keep all scheduled appointments and contact footwear production machine operator for any additional problems. Stable. Discussed medications with patient; med rec completed. Continue current regimen as prescribed by PCP and specialists. RTC as needed if developing any new or worsening symptoms. Please notify PACT with medication changes or for orders coordination as needed if seen by a specialist in the future. Discussed with patient that in the event of community imaging / testing being ordered in the future, once the imaging / testing has been completed, please notify PACT of completion at outside facility if not called with results within 1 week by a [facility] PACT member; this is due to intermittent lapses in notification of imaging completion within CPR[facility]. All questions answered; agrees to plan of care. Follow up as listed above. Keep all appointments. /alexander/ KRYSTAL YOUNG MD Signed: 05/13/2025 20:28 [facility]
--- OUTSIDE RECORDS SUMMARY | 2025-05-22 08:00 | XMS_ITS ---
Author Organization [facility] Address [address] [place] [address] Care Team Providers Care Clinical Trainer Name Role Phone Sil Gatica MD Primary Care Provider UnavailJess Russ Unavailable [phone] Jameel Schmitt Unavailable [phone] REASON FOR VISIT UDS Encounters Encounter Location Date Provider Diagnosis [facility] [address] [place] [address] 05/22/2025 Jameel Schmitt Plan Of Treatment Next Appt Details Provider Name:Jameel Tony y, 09/23/2025 10:00:00 AM, [address], [address], [place], [address], Provider Name:Jess sandoval, 09/29/2025 10:20:00 AM, [address] [place] [address] [address], [place], [address], Provider Name:Saurabh freed, 10/30/2025 01:00:00 PM, [address] [place] [address] [address], [place], [address], Provider Name:Chang García, 01/05/2026 09:40:00 AM, [address] [place] [address] [address], [place], [address], Progress Notes * Robert BERRY RDOB:1980 (44 yo M)Acc No.[id number]:05/22/2025 Progress Note Patient: Robert King Provider: Kianna Schmitt MD :1980 A ge:44 Y S ex:Male Date:05/22/2025 Address:[address] [place] [address], [facility] Pcp:Sil Gatica MD Subjective: * Chief Complaints: * U DS * Electronic signature of Montez Schmitt MD on 08/13/2025 at 04:51 AM NEEDLE PUNCH MACHINE OPERATOR HELPER Sign off status: Pending * Provider: Kianna Schmitt MD Date: 0 05/22/2025 Generated for José Miguel burgess/Horacio/Kellenitting on: 1 10/13/2024 04:51 AM NEEDLE PUNCH MACHINE OPERATOR HELPER
--- OUTSIDE RECORDS SUMMARY | 2025-05-26 04:42 | XMS_ITS | Encounter Summary ---
Author Name [facility] Organization [facility] [place] Address [address] [place] [address] Care Team Providers Care Career Development Director Name Role Phone KRYSTAL YOUNG Primary Care [...] R REGIO NAL MEDI Nov 19, 2024 [facility] [id number] [phone] KEYSHAWN MARTINEZ PATIENT PROCARE RX PRESCRIPT ION RX PLAN February 06, 2025 [phone] KEYSHAWN MARTINEZ SPOUSE WEB TPA PREFERRED PROVIDER ORGANIZAT ION (PPO) BAXTE R REGIO NAL MEDI February 06, 20252018[facility] C [id number] [phone] JEFFRY MARTINEZ SPOUSE WEB TPA PREFERRED PROVIDER ORGANIZAT ION (PPO) BAXTE R REGIO NAL MEDI Nov 19, 20242018[facility] [id number] [phone] KEYSHAWN MARTINEZ PATIENT Selected Encounter This section includes the information on record at [place] for the Encounter. Date/Time Encounter Type Encounter Description Reason Provider Source May 26, 2025 10:42 AM Outpatient Encounter ADMIN PAT ACTIVTIES (MASNONCT) JAVAD JALLOH Sol Encounter Template Text not used by MI Plan of Treatment: Future Appointments (+ 6 months) and Future Tests (+/- 45 days) The Plan of Treatment section includes future care activities for the patient from all [facility]. This section includes future appointments and future orders which are active, pending or scheduled. Future Appointments This section includes appointments that were scheduled to occur 6 months from the date of the Encounter, up to a maximum of 20 appointments. The data comes from all MI treatment facilities. Appointment Date/Time Appointment Type Appointme nt Facility Name Jun 16, 2025 11:20 AM AMBULATORY - [place]IC[place] [facility] Jul 04, 2025 09:30 AM [facility] Jul 09, 2025 09:15 AM AMBULATORY - MEDICINE [facility] Lab Results: +/- 30 days of the encounter This section includes the Chemistry and Hematology Lab Results on record with MI for the patient. Radiology Reports and Pathology Reports are provided separately, in subsequent sections. Lab Results This section contains the Chemistry/Hematology Results that were resulted 30 days before or 30 daysafter the date of the Encounter. Date/Time Source Result Type Result - Unit Interpretation Reference Range Specimen Type Comment May 13, 2025 03:42 PM [facility] COMPREHENSIVE METABOLIC PANEL PLASMA Specimen Type: PLASMA No comment entered. Ordering Provider: ALIYAH OTERO Report Released Date/Time: May 13, 2025 03:39 PM Reporting Lab: [place] [facility] [address] [place] [address] Performing Lab: [place] [facility] [address] [place] [address] CREATININE 4.57 mg/dL H 0.7-1.3 UREA NITROGEN [...] 2020) 15 May 13, 2025 03:42 PM [facility] CBC BLOOD Specimen Type: BLOOD No comment entered. Ordering Provider: ALIYAH OTERO Report Released Date/Time: May 13, 2025 03:39 PM Reporting Lab: [place] [facility] [address] [place] [facility] [address] Performing Lab: [place] [facility] [address] [address] WBC 5.3 10*3/uL 3.6-11.2 RBC 3.46 10*6/uL [...] and tobacco- related health factors from the [place] facility where the Encounter took place. Current Smoking Status This section includes the most current smoking, or tobacco-related health factor, from the MI facility where the Encounter took place. Date/Time Current Smoking Status Comment Yusuf cummins May 13, 2025 03:00 PM VA-TOBACCO USE FORMER CIGARETTES [facility] Tobacco Use History This section includes a history of the smoking, or tobacco-related health factors, that were collected on or before the date of the Encounter. The data comes from the MI facility where the Encounter took place. Date/Time Smoking Status/Tobac co Use Comment Facility May 13, 2025 03:00 PM VA-TOBACCO USE GUILLERMINA RY DAY OTHER TYPE [facility] May 13, 2025 03:00 PM VA-TOBACCO USE FOR GRACIE CIGARETTES [facility] Dec 16, 2019 10:01 AM VA-TOBACCO USE > 1 5 LESS THAN 30 YEARS [facility] Dec 16, 2019 10:01 AM VA-TOBACCO USE ADVICE [facility] Dec 16, 2019 10:01 AM VA-TOBACCO USE COU NSEL YES Referral to Smoking Cessation [facility] Dec 16, 2019 10:01 AM VA-TOBACCO USE MED NOTIFY PROVIDER Has tried using gum to stop smoking,would like to try something [facility] Dec 16, 2019 10:01 AM VA-TOBACCO USE WI 30 MIN OF WAKEUP [facility] Dec 16, 2019 10:01 AM VA-TOBACCO USER EVERY DAY [facility] Dec 18, 2018 02:46 PM CURRENT TOBACCO USER [facility] Dec 13, 2018 10:59 AM CURRENT TOBACCO USER [facility] Dec 13, 2018 10:59 AM VA-TOBACCO USE 5 T O 15 YEARS [facility] Dec 13, 2018 10:59 AM VA-TOBACCO USE ADVICE [facility] Dec 13, 2018 10:59 AM VA-TOBACCO USE 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 Date/Time Encounter Note(s) Provider Source May 26, 2025 10:42 AM LETTERS: LOCAL TITLE: TELE-EYE RESULTS LETTER STANDARD TITLE: LETTERS DATE OF NOTE: MAY 26, 2025@10:42 ENTRY DATE: MAY 26, 2025@10:42:19 AUTHOR: JAVAD JALLOH EXP COSIGNER: URGENCY: STATUS: COMPLETED MAY 26, 2025 SHANEL MARTINEZ [facility] [address] [place] [id number] Dear Shanel Martinez: You are receiving this letter in regard to your recent VA EYE SCREENING. The purpose of the screening is to detect specific vision-threatening conditions such as diabetic retinopathy (if you are diabetic), macular degeneration, and glaucoma. Early detection of eye disease can be important to reduce the risk of permanent vision loss. Your information and testing was reviewed by a licensed VA eye care provider. The date of review and findings are noted below: Screening Exam Findings 05/26/2025 No diabetic retinopathy apparent No macular degeneration apparent No glaucoma apparent Recommendations: 05/26/2025 A repeat eye screening in 2 YEARS has been recommended *Please note that incidental findings outside the primary focus of this screening may be noted within the detailed report of the visit. This report can be accessed online through [employer] ([email or web address].[email or web address]) or requested through your VA Medical Records/Release of Information office. If you have been seen by a non-VA eye care provider, please bring your records to your next VA appointment to be scanned into your medical record. If you are a tobacco user, [place] provides tobacco cessation services which can reduce the risk of eye disease as well as risks to your overall health. Please discuss with your VA Primary Care team for more information. Thank you for allowing us to serve you. VA Healthcare Team Digital retinal imaging has been shown to be an effective method of screening for specific eye conditions, but cannot substitute for a comprehensive eye exam. Comprehensive eye exams are recommended every 1-2 years, or more frequently as determined by the presence of risk factors, early signs or symptoms, or known history of eye disease. JAVAD JALLOH [facility]
--- OUTSIDE RECORDS SUMMARY | 2025-06-03 02:00 | XMS_ITS ---
Author Organization [facility] Address [address] [place] [address] Care Team Providers Care Vending Machine Mechanic Name Role Phone Sil Gatica MD Primary Care Provider Unavaila Jess Moreau Unavailable [phone] Jameel Schmitt Unavailable [phone] REASON FOR VISIT 2m f/u w Dr Keshia milian ua and pvr Encounters Encounter Location Date Provider Diagnosis [facility] [address] [place] [address] 06/03/2025 Jameel Schmitt Plan Of Treatment Next Appt Details Provider Name:Jameel freed, 09/23/2025 10:00:00 AM, [address], [place], [address], Provider Name:Jess sandoval, 09/29/2025 10:20:00 AM, [address] [place] [address] [address], [place], [address], Provider Name:Saurabh freed, 10/30/2025 01:00:00 PM, [address] [place] [address] [address], [place], [address], Provider Name:Chang García, 01/05/2026 09:40:00 AM, [address] [place] [address] [address], [place], [address], Progress Notes * Robert MARTINEZ RDOB:1980 (44 yo M)Acc No.[id number]:06/03/2025 Progress Notes Patient: Robert King Provider: Kianna Schmitt MD :1980 A ge:44 Y S ex:Male Date:06/03/2025 Address:[address] [place] [address], [address] Pcp:Sil Gatica MD Subjective: * Chief Complaints: * 2 m f/u w Dr Keshia milian ua and pvr * Electronic signature of Montez Schmitt MD on 08/13/2025 at 04:50 AM PROGRAM OR PROJECT ADMINISTRATOR Sign off status: Pending * Provider: Kianna Schmitt MD Date: 0 06/03/2025 Generated for José Miguel burgess/Horacio/eTdeniasmitting on: 1 10/13/2024 04:50 AM PROGRAM OR PROJECT ADMINISTRATOR
--- OUTSIDE RECORDS SUMMARY | 2025-06-03 06:30 | XMS_ITS ---
Author Organization [facility] Address [address] [place] [address] Care Team Providers Care In Flight Refueling System Repairer Name Role Phone Sil Gatica MD Primary Care Provider UnavailJess Russ Unavailable [phone] Jameel Schmitt Unavailable [phone] Saurabh Mendez JR Unavailable [phone] REASON FOR VISIT [id number] Referral - Chronic UTI Medications Medication SIG [...] Active Encounters Encounter Location Date Provider Diagnosis [facility] Internal Medicine & Infectious Disease [address] [place] [address], [place] [address] 06/03/2025 Saurabhanat Reyesy Abscess of prostate N41.2 [...] on this treatment Labs 02-23-25 W 7.6, Criminology Professor 4.34, CRP 3.18 03-06-25; W 4.9, Criminology Professor 4.18,, CRP 3.45, PSA .12, UM WBC U 378 03-24-25 W 5.0, Criminology Professor 3.13, CRP .66 05-20-25 UC Neg Follow [...] on this treatment Labs 02-23-25 W 7.6, Criminology Professor 4.34, CRP 3.18 03-06-25; W 4.9, Criminology Professor 4.18,, CRP 3.45, PSA .12, UM WBC U 378 03-24-25 W 5.0, Criminology Professor 3.13, CRP .66 05-20-25 UC Neg Follow up; Rosa Garber Plan Of Treatment Next Appt Details Provider Name:Jameel freed, 09/23/2025 10:00:00 AM, [address] , [address], [place], [address], Provider Name:Jess sandoval, 09/29/2025 10:20:00 AM, [address] [place] [address] , [facility] [address], [place], [address], Provider Name:Saurabh freed, 10/30/2025 01:00:00 PM, [address] [place] [address] [address], [place], [address], Provider Name:Chang García, 01/05/2026 09:40:00 AM, [address] [place] [address] , [address], [place], [address], History and Physical Notes * HPI (History [...] * Elizabeth MARTINEZd RDOB:1980 (44 yo M)Acc No.[id number]:06/03/2025 Progress Notes Patient: Robert King Provider: Hamilton Mendez MD :1980 A ge:44 Y S ex:Male Date:06/03/2025 Address:[address] [place] [address], [address] Pcp:Sil Gatica MD Subjective: * Chief Complaints: * [phone] Referral - Chronic UTI * HPI: N [...] (start date 03-24-25) . Pt notified to [place] Cipro on 03-25-25 7. Gastritis, Peptic ulcer disease, improved on Carafate and Protonix. - Pt doing better on this treatment Labs 02-23-25 W 7.6, Criminology Professor 4.34, CRP 3.18 03-06-25; W 4.9, Criminology Professor 4 .18,, CRP 3.45, PSA .12, UM WBC U 378 03-24-25 W 5.0, Criminology Professor 3.13, CRP .66 05-20-25 UC Neg Follow up; Rosa Garber Billing Information: * Procedure Codes: Care Plan Details* * Electronic signature of Guillermo Mendez JR, MD on 08/13/2025 at 04:51 AM FUNERAL SERVICE LICENSEE Sign off status: Pending * Provider: Hamilton Mendez MD Date: 0 06/03/2025 Generated for José Miguel burgess/Horacio/Kellenitting on: 10/13/2024 04:51 AM FUNERAL SERVICE LICENSEE
--- OUTSIDE RECORDS SUMMARY | 2025-07-15 02:30 | XMS_ITS | Encounter Summary ---
Author Name [facility] [place] [facility] [place] Address [address] [place] [address] Care Team Providers Care Books Binder Name Role Phone KRYSTAL YOUNG Primary Care [...] RX PRESCRIPT ION BAXTE R REGIO NAL [facility] Nov 19, 2024 [facility] [id number] KEYSHAWN BERRY PATIENT PROCARE RX PRESCRIPT ION RX PLAN February 06, 2025 [id number] [phone] [phone] KEYSHAWN BERRY SPOUSE WEB TPA PREFERRED PROVIDER ORGANIZAT ION (PPO) BAXTE R REGIO NAL MEDI February 06, 20252018[facility] C [id number] [phone] JEFFRY BERRY SPOUSE WEB TPA PREFERRED PROVIDER ORGANIZAT ION (PPO) BAXTE R REGIO NAL MEDI Nov 19, 20242018[facility] C [id number] KEYSHAWN BERRY PATIENT Selected Encounter This section includes the information on record at [place] for the Encounter. Date/Time Encounter Type Encounter Description Reason Provider Source Jul 15, 2025 08:30 AM [facility] FACILITY FEE PRIMARY CARE/MEDICINE ICD-10-CM E11.9 Type 2 diabetes mellitus without complications MAYNOR BECERRIL Sol Encounter Template Text not used by [place] Assessments - Encounter Diagnoses This section includes the primary and secondary diagnoses documented for the Encounter. Date/Time Primary/Secondary Diagnosis Diagnosis Name Provider Source Jul 15, 2025 01:58 PM PRIMARY Type 2 diabetes mellitus without complications CHRIS BECERRIL [facility] Plan of Treatment: Future Appointments (+ 6 months) and Future Tests (+/- 45 days) The Plan of Treatment section includes future care activities for the [facility] [place] [facility] This section includes future appointments and future orders which are active, pending or scheduled. Future Appointments This section includes appointments that were scheduled to occur 6 months from the date of the Encounter, up to a maximum of 20 appointments. The data comes from all [place] treatment facilities. Appointment Date/Time Appointment Type Appointme nt Facility Name Aug 11, 2025 01:00 PM AMBULATORY - MEDICINE [facility] Aug 11, 2025 02:00 PM AMBULATORY - MEDICINE [facility] Sep 03, 2025 09:30 AM AMBULATORY - MEDICINE [facility] Active, Pending, and Scheduled Orders This section includes a listing of several types of active, pending, and scheduled orders, including clinic medications orders, diagnostic test orders, procedure orders and consult orders; where the start date of the order is 45 days before the date of the Encounter or 45 days after the date of theEncounter. The data comes from all [place] treatment facilities. Test Date/Time Test Type Test Details Facility Name Aug 11, 2025 01:16 PM Laboratory - Chemi stry Order POC UA (STL-PB-MA) URINE [facility] Aug 11, 2025 02:43 PM Laboratory - Microbiology Order C&S URINE URINE,CLEAN CATCH YASH HERNANDEZ [facility] Lab Results: +/- 30 days of the encounter This section includes the Chemistry and Hematology Lab Results on record with [facility] for the patient. Radiology Reports and Pathology Reports are provided separately, in subsequent sections. Lab Results This section contains the Chemistry/Hematology Results that were resulted 30 days before or 30 daysafter the date of the Encounter. Date/Time Source Result Type Result - Unit Interpretation Reference Range Specimen Type Comment Aug 11, 2025 02:43 PM [facility] URINALYSIS W/ CX REFLEX (STL-PB) URINE Specim en Type: URINE No comment entered. Ordering Provider: ALIYAH OTERO Report Released Date/Time: Aug 11, 2025 01:57 PM Reporting Lab: [place] [facility] [address] [facility] [place] [facility] [address] Performing Lab: [place] [facility] [address] [facility] [place] [facility] [address] URINE COLOR Brown Yellow U.BILIRUBIN NEGATIVE mg/dL Negative U.PH 6.0 5.0-8.0 URINE WBC/HPF 24 /[HPF] 0-5 URINE RBC/HPF 225 /[HPF] H 0-5 APPEARANCE TURBID H Clear U.NITRITE NEGATIVE mg/dL Negative MUCUS RARE /[LPF] Negative-Rare URN.GLUCOSE 100 mg/dL H Negative URN.PROTEIN 70 mg/dL H URN.UROBILINOGEN NORMAL mg/dL Normal URN.BLOOD 3+ mg/dL H Negative-Trace URN.KETONES NEGATIVE mg/dL Negative-Trac e URN.LEUK.EST. 75 Negative-Trace URN.SPECIFIC GRAVITY 1.013 1.005-1.029 Aug 11, 2025 01:21 PM [facility] POC UA (STL-PB-MA) URINE Specimen Type: URINE No comment entered. Ordering Provider: KRYSTAL YOUNG Report Released Date/Time: Aug 11, 2025 01:27 PM Reporting Lab: [facility] [address] [facility] [address] Performing Lab: [facility] [address] [facility] [address] PROTEIN POC UA 100 mg/dL Negative BLOOD POC UA Large Negative LEUKOCYTES POC UA Small Negative COLOR POC UA Red YELLOW SPEC GRAV POC UA 1.015 1.005-1.030 UROBILINOGEN POC UA 0.2 {Nano'U}/dL 0 .1-1.0 BILIRUBIN POC UA Negative Negative KETONES POC UA Negative mg/dL Negative GLUCOSE POC UA 100 mg/dL Negative pH POC UA 5.5 5.0-8.0 NITRITE POC UA Negative Negative CLARITY POC UA Slightly Cloudy CLEAR Jul 15, 2025 09:51 AM [facility] HGA1C BLOOD Specimen Type: BLOOD No comment entered. Ordering Provider: KRYSTAL YOUNG Report Released Date/Time: February 07, 2025 08:50 AM Reporting Lab: [place] [facility] [address] [place] [address] Performing Lab: [place] [facility] [address] [place] [address] HGA1C 5.4 4.0-6.0 Jul 15, 2025 09:51 AM [facility] PROCALCITONIN (PB) PLASMA Specimen Type: PLASM A No comment entered. Ordering Provider: KRYSTAL YOUNG Report Released Date/Time: Jul 15, 2025 09:50 AM Reporting Lab: [place] [facility] [address] [place] [address] Performing Lab: [place] [facility] [address] [place] [address] PROCALCITONIN (PB) 0.04 ng/mL 0-0.5 Jul 15, 2025 09:51 AM [facility] URINE ALBUMIN PROFILE-ih (PB) URINE Specimen Type: URINE No comment entered. Ordering Provider: KRYSTAL YOUNG Report Released Date/Time: Jul 15, 2025 09:50 AM Reporting Lab: [place] [facility] [address] [place] [address] Performing Lab: [place] [facility] [address] [place] [address] URINE ALBUMIN (PB-STL) 43.08 mg/L uACR (PB-MA) 80.37 mg/g H 0-30 CREATININE URINE/OTHERS 53.60 mg/dL Jul 15, 2025 09:51 AM [facility] MAGNESIUM PLASM A Specimen Type: PLASMA No comment entered. Ordering Provider: KRYSTAL YOUNG Report Released Date/Time: Jul 15, 2025 09:50 AM Reporting Lab: [place] [facility] [address] [place] [address] Performing Lab: [place] [facility] [address] [place] [address] MAGNESIUM 2.34 mg/dL 1.6-2.6 Jul 15, 2025 09:51 AM [facility] BASIC METABOLIC PANEL PLASMA Specimen Type: PL ASMA No comment entered. Ordering Provider: KRYSTAL YONUG Report Released Date/Time: Jul 15, 2025 09:50 AM Reporting Lab: [place] [facility] [address] [place] [address] Performing Lab: [place] [facility] [address] [place] [address] CREATININE 4.78 mg/dL H 0.7-1.3 UREA NITROGEN 54 mg/dL H 9-25 GLUCOSE 111 mg/dL H 72-99 SODIUM 141 meq/L 136-145 POTASSIUM 5.0 meq/L 3.5-5 CHLORIDE 110 meq/L H 98-107 CARBON DIOXIDE 22 meq/L 22-31 CALCIUM 9.3 mg/dL 8.4-10.4 EGFR (CKD-EPI 2020) 15 Jul 15, 2025 09:51 AM [facility] CBC BLOOD Specimen Type: BLOOD No comment entered. Ordering Provider: KRYSTAL YOUNG Report Released Date/Time: Jul 15, 2025 09:50 AM Reporting Lab: [place] [facility] [address] [place] [address] Performing Lab: [place] [facility] [address] [place] [facility] WBC 4.0 10*3/uL 3.6-11.2 RBC 3.76 10*6/uL L 4.10-5.70 HGB 10.3 g/dL L 13.1-16.8 HCT 31.1 L 38.2-48.4 MCV 82.7 fL 80.0-100.0 MCH 27.4 pg 27.0-34.0 MCHC 33.1 g/dL 33.0-36.0 PLT 185 10*3/uL 150-400 MPV 10.9 fL 7.5-11.2 RDW 14.7 11.8-15.1 LYMPHOCYTES, AUTO % 37.7 MONOCYTES, AUTO % 6.0 NEUTROPHILS, AUTO % 51.6 EOSINOPHILS, AUTO % 4.0 BASOPHILS, AUTO % 0.5 LYMPHOCYTES, ABSOLUTE 1.52 10*3/uL 0.77- 4.50 MONOCYTES, ABSOLUTE 0.24 10*3/uL 0.19-0. 8 NEUTROPHILS, ABSOLUTE 2.08 10*3/uL L 2.10- 8.00 EOSINOPHILS, ABSOLUTE 0.16 10*3/uL 0.00- 0.60 BASOPHILS, ABSOLUTE 0.02 10*3/uL 0.00-0. 20 IMMATURE GRANS, AUTO % 0.2 IMMATURE GRANS, AUTO ABS 0.01 10*3/uL 0. 00-0.05 Vital Signs: All taken on the encounter date This section contains inpatient and outpatient Vital Signs collected on the date of the Encounter. Date/Time Temperature Pulse Blood Pressure Respiratory Rate SP02 Pain Height Weight Body Mass Index Source Jul 15, 2025 08:38 AM 142/89 mm[Hg] [facility] Jul 15, 2025 08:38 AM 137/90 mm[Hg] [facility] Jul 15, 2025 08:38 AM 97.9 F 85 /min 146/101 mm[Hg] 20 /min 100 % 0 188.8 lb 27 [facility] Social History: Smoking Status (Most current) and Tobacco Use (All prior to encounter date) This section includes the most current, and the historical, smoking and tobacco- related health factors from the [place] facility where the Encounter took place. Current Smoking Status This section includes the most current smoking, or tobacco-related health factor, from the [place] facility where the Encounter took place. Date/Time Current Smoking Status Comment [facility] May 13, 2025 03:00 PM VA-TOBACCO USE FORMER CIGARETTES [facility] Tobacco Use History This section includes a history of the smoking, or tobacco-related health factors, that were collected on or before the date of the Encounter. The data comes from the [place] facility where the Encounter took place. Date/Time Smoking Status/Tobac co Use Comment Facility May 13, 2025 03:00 PM VA-TOBACCO USE GUILLERMINA RY DAY OTHER TYPE [facility] May 13, 2025 03:00 PM VA-TOBACCO USE FOR GRACIE CIGARETTES [facility] Dec 16, 2019 10:01 AM VA-TOBACCO USE > 1 5 LESS THAN 30 YEARS [facility] Dec 16, 2019 10:01 AM VA-TOBACCO USE ADVICE [facility] Dec 16, 2019 10:01 AM VA-TOBACCO USE COU NSEL YES Referral to Smoking Cessation [facility] Dec 16, 2019 10:01 AM VA-TOBACCO USE MED NOTIFY PROVIDER Has tried using gum to stop smoking,would like to try something [facility] Dec 16, 2019 10:01 AM VA-TOBACCO USE WI 30 MIN OF WAKEUP [place] [facility] Dec 16, 2019 10:01 AM VA-TOBACCO USER EVERY DAY [facility] Dec 18, 2018 02:46 PM CURRENT TOBACCO USER [facility] Dec 13, 2018 10:59 AM CURRENT TOBACCO USER [facility] Dec 13, 2018 10:59 AM VA-TOBACCO USE 5 T O 15 YEARS [facility] Dec 13, 2018 10:59 AM VA-TOBACCO USE ADVICE [facility] Dec 13, 2018 10:59 AM VA-TOBACCO USE COMPOSITE BOAT BUILDER NO [facility] Dec 13, 2018 10:59 AM VA-TOBACCO USE MED NO [facility] Dec 13, 2018 10:59 AM VA-TOBACCO USE WI 30 MIN OF WAKEUP [facility] Dec 13, 2018 10:59 AM VA-TOBACCO USER EVERY DAY [facility] Jul 06, 2010 01:01 PM CURRENT TOBACCO USER [facility] Encounter Notes: All associated encounter notes This section contains the clinical notes associated to the Encounter. Date/Time Encounter Note(s) Provider Source Jul 15, 2025 08:29 AM PRIMARY CARE NURSI NG NOTE: LOCAL TITLE: PRIMARY CARE NURSING PROGRESS NOTE (TEXT) NURSING P STANDARD TITLE: PRIMARY CARE NURSING NOTE DATE OF NOTE: JUL 15, 2025@08:29 ENTRY DATE: JUL 15, 2025@08:29:18 AUTHOR: EJ BECERRIL COSIGNER: URGENCY: STATUS: COMPLETED Established Patient SHANEL BERRY IS A 44 YEAR OLD MALE BEING SEEN IN CLINIC JUL 15, 2025. = = REASON FOR VISIT: Fllow up to ER visits, states for UTI. Are you receiving care any where other than the [facility]? No HEALTH AND SURGICAL HISTORY: Does patient report using home oxygen? CURRENT ACTIVE MEDICATIONS FOR REVIEW: If the list for review does not include a component, then it was not applicable to this patient. Allergies/ADRs (Tool #5) FACILITY ALLERGY/ADR -------- No Remote Allergy/ADR Data available for this patient [facility] Med. Reconciliation (Tool #1) INCLUDED IN THIS LIST: Alphabetical list of active outpatient prescriptions dispensed from this [place] (local) and dispensed from another [place] or [facility] facility (remote) as well as inpatient orders (local pending and active), local clinic medications, locally documented non-VA medications, and local prescriptions that have or been discontinued in the past 90 days. Non-VA Meds Last Documented On: Data not found NOTE The display of VA prescriptions dispensed from another [place] or [facility] facility (remote) is limited to active outpatient prescription entries matched to National Drug File at the originating site and may not include some items such as investigational drugs, compounds, etc. NOT INCLUDED IN THIS LIST: Medications self-entered by the patient into personal health records (i.e. [facility]) are NOT included in this list. Non-VA medications documented outside this [place], remote inpatient orders (regardless of status) and remote clinic medications are NOT included in this list. The patient and provider must always discuss medications the patient is taking, regardless of where the medication was dispensed or obtained. OUTPT EMPAGLIFLOZIN 25MG TAB (Status = Active) TAKE ONE-HALF TABLET BY MOUTH EVERY MORNING FOR DIABETES Rx# [id number] Last Released: 04/17/25 Qty/Days Supply: Rx Expiration Date: 03/18/26 Refills Remainin Indication: FOR DIABETES OUTPT FERROUS GLUCONATE 324MG TAB (Status = Active) TAKE ONE TABLET BY MOUTH TWICE A DAY WITH MEALS FOR IRON DEFICIENCY ANEMIA Rx# [id number] Last Released: 05/16/25 Qty/Days Supply: 200/90 Rx Expiration Date: 01/21/26 Refills Remainin Indication: FOR IRON DEFICIENCY ANEMIA OUTPT INSULIN,ASPART(EQV-NOVLG)100 UN/ML FLXPEN (Status = Active) INJECT 10 UNITS UNDER THE SKIN THREE TIMES A DAY BEFORE MEALS FOR DIABETES ADMINISTER 10 MINUTES BEFORE FOOD DIRECTED. REFRIGERATE UN-OPENED PENS. DISCARD CARTRIDGE 28 DAYS AFTER OPENING. Rx# [id number] Last Released: 05/19/25 Qty/Days Supply: Rx Expiration Date: 01/21/26 Refills Remainin Indication: FOR DIABETES OUTPT INSULIN,GLARGINE 100 UNT/ML 3ML SOLOSTAR (Status = Active) INJECT 20 UNITS OF 100UNIT/ML UNDER THE SKIN ONCE A DAY FOR DIABETES ADMINISTER AT SAME TIME EACH DAY DIRECTED. DISCARD ANY OPEN CARTRIDGE AFTER 28 DAYS. DOSE ADJUSTMENT. NO EXTRA INSULIN NEEDED AT THIS TIME. Rx# [id number] Last Released: 06/04/25 Qty/Days Supply: Rx Expiration Date: 01/08/26 Refills Remainin Indication: FOR DIABETES OUTPT NICOTINE POLACRILEX 2MG MINI LOZENGE (Status = Active) DISSOLVE 1 LOZENGE BY MOUTH EVERY 4 HOURS NEEDED FOR TOBACCO CESSATION .DO NOT SMOKE WHILE USING THIS MEDICATION. Rx# [id number] Last Released: 02/04/25 Qty/Days Supply: 30 Rx Expiration Date: 02/04/26 Refills Remainin Indication: FOR TOBACCO CESSATION OUTPT PANTOPRAZOLE NA 40MG EC TAB (Status = Active) TAKE ONE TABLET BY MOUTH EVERY MORNING BEFORE A MEAL FOR GASTROESOPHAGEAL REFLUX DISEASE TAKE 30 MINUTES BEFORE MEAL(S) Rx# [id number] Last Released: 06/12/25 Qty/Days Supply: 90/90 Rx Expiration Date: 01/07/26 Refills Remainin Indication: FOR GASTROESOPHAGEAL REFLUX DISEASE OUTPT ROSUVASTATIN CA 10MG TAB (Status = Active) TAKE ONE TABLET BY MOUTH EVERY EVENING FOR HIGH CHOLESTEROL Rx# [id number] Last Released: 05/23/25 Qty/Days Supply: Rx Expiration Date: 03/18/26 Refills Remainin Indication: FOR HIGH CHOLESTEROL SUPPLIES OUTPT GLUCOSE SENSOR FREESTYLE NAHUM 3 PLUS (Status = Discontinued) USE SENSOR EVERY 15 DAYS FOR BLOOD SUGAR MONITORING CHANGE SENSOR/SITE EVERY 15 DAYS. TO REPLACE SENSOR FOR ANY REASON OR FOR TECHNICAL HELP PLEASE CALL [employer] DESK: -SPECIFIC PHONE NUMBER: [phone]). Rx# [id number] Last Released: 06/23/25 Qty/Days Supply: Rx Expiration Date: 01/21/26 Refills Remainin Indication: FOR BLOOD SUGAR MONITORING OUTPT GLUCOSE SENSOR FREESTYLE NAHUM 3 PLUS (Status = Active) USE SENSOR EVERY 15 DAYS FOR BLOOD SUGAR MONITORING CHANGE SENSOR/SITE EVERY 15 DAYS. TO REPLACE SENSOR FOR ANY REASON OR FOR TECHNICAL HELP PLEASE CALL [employer] DESK: -SPECIFIC PHONE NUMBER: [phone]). Rx# [id number] Last Released: 07/07/25 Qty/Days Supply: Rx Expiration Date: 07/05/26 Refills Remainin Indication: FOR BLOOD SUGAR MONITORING OUTPT NEEDLE,PEN 32G,4MM (Status = Active) USE 1 NEEDLE UNDER THE SKIN FOUR TIMES A DAY FOR INJECTION Rx# [id number] Last Released: 07/06/25 Qty/Days Supply: / Rx Expiration Date: 07/05/26 Refills Remainin Indication: FOR INJECTION PHARMACY TERMS AND POSSIBLE PATIENT ACTIONS INPT = [place] inpatient order IV = [place] intravenous medication OUTPT = [place] outpatient prescription PHARMACY POSSIBLE PATIENT TERMS EXPLANATION ACTIONS -------- ---- ACTIVE A prescription that can be If you have refills, filled at the local [place] pharmacy. you may request a refill of this prescription from your VA pharmacy. CLINIC A medication you received during If you have questions a visit to a VA clinic or about this medication emergency department. contact your VA healthcare team. DISCONTINUED A prescription your provider has Contact your VA stopped. It is no longer healthcare team if you available to be sent to you or need more of this picked up at the [place] pharmacy medication. window. A prescription which is [...] the VA. Or, it may be an iwzz-upc-uujawys (OTC), herbal, dietary supplements or sample medication. [...] An active prescription that is Contact your VA not scheduled to be filled yet. pharmacy if you need You should receive it before this medication now. you run out. Medication list reviewed with Patient Patient/Caregiver reports taking meds other than as directed/ordered: Stopped empagliflozin, States has not been needing any insulin recently, states blood sugars are staying good with the apple cider vinegar gummies and diet. IS PATIENT TAKING ANY OVER THE COUNTER MEDICATIONS, SUCH VITAMINS OR HERBAL SUPPLEMENTS, INCLUDING ANY MEDICATIONS PRESCRIBED BY ANOTHER PHYSICIAN? Yes, List: apple cider vinegar gummies Does patient have any new allergies to report since last visit? NO VITALS: TEMPERATURE: 98.2 F [36.8 C] (05/13/2025 15:28) BP: 138/88 (05/13/2025:) RESP: 20 (05/13/2025:) PULSE: 80 (05/13/2025) HT: 70 in [177.8 cm] (12/13/2018 10:57) WT: 183.1 lb [83.05 kg] (05/13/2025:) BMI: 26.3 PAIN ASSESSMENT: (Most Recent Pain Score in Vitals Package: 0 (05/13/2025 15:28) ) The patient indicated that they and [...] Now let us serve you. At the [facility], we strive to provide you with exceptional [...] Not At All SPIRITUAL ASSESSMENT: Are there zoroastrian practices or spiritual concerns you want the wool and pelt grader, your physician, and other health care team members to immediately know about? No Patient advised to call the clinic for any concerns, questions, or symptoms. Patient and/or caregiver verbalized understanding of plan of care. Influenza Immunization - L,N,P,PH,U: Deferral / Refusal COVID-19 Immunization - L,N,P,PH,U: Refused Moderna Monovalent COVID-19 vaccine Immunization: COVID-19 (MODERNA), MRNA, LNP-S, PF, 50 MCG/0.5 ML (AGES 12+ YEARS) Refusal Reason: PATIENT DECISION Patient refuses all immunization(s) in the COVID-19 group Date Documented: 07/15/25 08:37 Pneumococcal Vaccine - L,N,P,PH,U: Deferral/Refusal: Refused Pneumococcal Vaccine: Immunization: PNEUMOCOCCAL CONJUGATE PCV20, POLYSACCHARIDE [id number] CONJUGATE, ADJUVANT, PF Refusal Reason: PATIENT DECISION Patient refuses all immunization(s) in the PneumoPCV group Date Documented: 07/15/25 08:37 Suicide Screen - V: C-SSRS Screening [place] Suicide Severity Rating Scale (C-SSRS) screener 1. Over the past month, have you wished you were or wished you could go to sleep and not wake up? No 2. Over the past month, have you had any actual thoughts of killing yourself? No 3. Over the past month, have you been thinking about how you might do this? Response not required due to responses to other questions. 4. Over the past month, have you had these thoughts and had some intention of acting on them? Response not required due to responses to other questions. 5. Over the past month, have you started to work out or worked out the details of how to kill yourself? Response not required due to responses to other questions. 6. If yes, at any time in the past month did you intend to carry out this plan? Response not required due to responses to other questions. 7. In your lifetime, have you ever done anything, started to do anything, or prepared to do anything to end your life (for example, collected pills, obtained a gun, gave away valuables, went to the roof but didn't jump)? No 8. If YES, was this within the past 3 months? Response not required due to responses to other questions. Depression Screening - V: Perform PHQ-2 A PHQ-2 screen was performed. The score was 0 which is a negative screen for depression. Over the past two weeks, how often have you been bothered by the following problems? 1. Little interest or pleasure in doing things Not at all 2. Feeling down, depressed, or hopeless Not at all /alexander/ EJ BECERRIL LPN [place] [facility] Signed: 07/15/2025 08:38 EJ BECERRIL [facility]
--- OUTSIDE RECORDS SUMMARY | 2025-07-15 02:31 | XMS_ITS | Encounter Summary ---
Author Name [facility] [place] [facility] [place] Address [address] [place] [address] Care Team Providers Care Extrusion Operator Name Role Phone KRYSTAL YOUNG Primary [...] REGIO NAL MEDI Nov 19, 2024 [facility] [id number] [phone] KEYSHAWN BERRY PATIENT PROCARE RX PRESCRIPT ION RX PLAN February 06, 2025 [id number] [phone] KEYSHAWN BERRY SPOUSE WEB TPA PREFERRED PROVIDER ORGANIZAT ION (PPO) BAXTE R REGIO NAL MEDI February 06, 20252018[facility] C [id number] [phone] JEFFRY BERRY SPOUSE WEB TPA PREFERRED PROVIDER ORGANIZAT ION (PPO) BAXTE R REGIO NAL MEDI Nov 19, 20242018[facility] [id number] [phone] KEYSHAWN BERRY AD PATIENT Selected Encounter This section includes the information on record at [place] for the Encounter. Date/Time Encounter Type Encounter Description Reason Provider Source Jul 15, 2025 08:31 AM OFFICE O/P EST MOD 30 MIN PRIMARY CARE/MEDICINE ICD-10-CM E11.9 Type 2 diabetes mellitus without complications KRYSTAL YOUNG Sol Encounter Template Text not used by [place] Assessments - Encounter Diagnoses This section includes the primary and secondary diagnoses documented for the Encounter. Date/Time Primary/Secondary Diagnosis Diagnosis Name Provider Source Jul 15, 2025 09:47 AM PRIMARY Type 2 diabetes mellitus without complications KRYSTAL YOUNG [facility] Jul 15, 2025 09:47 AM SECONDARY Acute kidney failure, unspecified KRYSTAL YOUNG [facility] Jul 15, 2025 09:47 AM SECONDARY Anemia, unspecified KRYSTAL YOUNG [facility] Jul 15, 2025 09:47 AM SECONDARY Elevated blood-pressure reading, w/o diagnosis of htn KRYSTAL YOUNG [facility] Plan of Treatment: Future Appointments (+ 6 months) and Future Tests (+/- 45 days) The Plan of Treatment section includes future care activities for the patient from all [place] [facility]. This section includes future appointments and future orders which are active, pending or scheduled. Future Appointments This section includes appointments that were scheduled to occur 6 months from the date of the Encounter, up to a maximum of 20 appointments. The data comes from all [place] treatment facilities. Appointment Date/Time Appointment Type Appointme nt Facility Name Aug 11, 2025 01:00 PM AMBULATORY - MEDICINE [facility] Aug 11, 2025 02:00 PM AMBULATORY - MEDICINE [facility] Sep 03, 2025 09:30 AM AMBULATORY - MEDICINE [facility] Active, Pending, and Scheduled Orders This section includes a listing of several types of active, pending, and scheduled orders, including clinic medications orders, diagnostic test orders, procedure orders and consult orders; where the start date of the order is 45 days before the date of the Encounter or 45 days after the date of theEncounter. The data comes from all [place] treatment facilities. Test Date/Time Test Type Test Details Facility Name Aug 11, 2025 01:16 PM Laboratory - Chemi stry Order POC UA (STL-PB-MA) URINE SP [facility] Aug 11, 2025 02:43 PM Laboratory - Microbiology Order C&S URINE URINE,CLEAN CATCH SP [facility] HERNANDE[facility] Lab Results: +/- 30 days of the encounter This section includes the Chemistry and Hematology Lab Results on record with [place] for the patient. Radiology Reports and Pathology Reports are provided separately, in subsequent sections. Lab Results This section contains the Chemistry/Hematology Results that were resulted 30 days before or 30 daysafter the date of the Encounter. Date/Time Source Result Type Result - Unit Interpretation Reference Range Specimen Type Comment Aug 11, 2025 02:43 PM [facility] URINALYSIS W/ CX REFLEX (STL-PB) URINE Specim en Type: URINE No comment entered. Ordering Provider: ALIYAH OTERO Report Released Date/Time: Aug 11, 2025 01:57 PM Reporting Lab: [facility] HER[facility] [address] [facility] [address] Performing [facility]: [facility] [address] [facility] [address] URINE COLOR Brown Yellow U.BILIRUBIN NEGATIVE mg/dL [...] 1.013 1.005-1.029 Aug 11, 2025 01:21 PM [facility] POC UA (STL-PB-MA) URINE Specimen Type: URINE No comment entered. Ordering Provider: KRYSTAL YOUNG Report Released Date/Time: Aug 11, 2025 01:27 PM Reporting Lab: [facility] [address] [facility] [address] Performing Lab: [facility] [address] [facility] [address] PROTEIN POC UA 100 mg/dL Negative BLOOD [...] Cloudy CLEAR Jul 15, 2025 09:51 AM [facility] HGA1C BLOOD Specimen Type: BLOOD No comment entered. Ordering Provider: KRYSTAL YOUNG Report Released Date/Time: February 07, 2025 08:50 AM Reporting Lab: [place] [facility] [address] [place] [address] Performing Lab: [place] [facility] [address] [place] [id number] HGA1C 5.4 4.0-6.0 Jul 15, 2025 09:51 AM [facility] PROCAL[facility]ONIN (PB) PLASMA Specimen Type: PLASM A No comment entered. Ordering Provider: KRYSTAL YOUNG Report Released Date/Time: Jul 15, 2025 09:50 AM Reporting Lab: [place] [facility] [address] [place] [address] Performing Lab: [place] [facility] [address] [place] [id number] PROCALCITONIN (PB) 0.04 ng/mL 0-0.5 Jul 15, 2025 09:51 AM [facility] URINE ALBUMIN PROFILE-ih (PB) URINE Specimen Type: URINE No comment entered. Ordering Provider: KRYSTAL YOUNG Report Released Date/Time: Jul 15, 2025 09:50 AM Reporting Lab: [place] [facility] [address] [place] [address] Performing Lab: [place] [facility] [address] [place] [address] URINE ALBUMIN (PB-STL) 43.08 mg/L uACR (PB-MA) 80.37 mg/g H 0-30 CREATININE URINE/OTHERS 53.60 mg/dL Jul 15, 2025 09:51 AM [place] [facility] MAGNESIUM PLASM A Specimen Type: PLASMA No comment entered. Ordering Provider: KRYSTAL YOUNG Report Released Date/Time: Jul 15, 2025 09:50 AM Reporting Lab: [place] [facility] [address] [place] [id number] Performing Lab: [place] [facility] [address] [place] [id number] MAGNESIUM 2.34 mg/dL 1.6-2.6 Jul 15, 2025 09:51 AM [facility] CBC BLOOD Specimen Type: BLOOD No comment entered. Ordering Provider: KRYSTAL YOUNG Report Released Date/Time: Jul 15, 2025 09:50 AM Reporting Lab: [place] [facility] [address] [place] [id number] Performing Lab: [place] [facility] [address] [place] [id number] WBC 4.0 10*3/uL 3.6-11.2 RBC 3.76 10*6/uL [...] GRANS, AUTO ABS 0.01 10*3/uL 0. 00-0.05 Jul 15, 2025 09:51 AM [facility] BASIC METABOLIC PANEL PLASMA Specimen Type: PL ASMA No comment entered. Ordering Provider: KRYSTAL YOUNG Report Released Date/Time: Jul 15, 2025 09:50 AM Reporting Lab: [place] [facility] [address] [place] [id number] Performing Lab: [place] [facility] [address] [place] [id number] CREATININE 4.78 mg/dL H 0.7-1.3 UREA NITROGEN 54 mg/dL H 9-25 GLUCOSE 111 mg/dL H 72-99 SODIUM 141 meq/L 136-145 POTASSIUM 5.0 meq/L 3.5-5 CHLORIDE 110 meq/L H 98-107 CARBON DIOXIDE 22 meq/L 22-31 CALCIUM 9.3 mg/dL 8.4-10.4 EGFR (CKD-EPI 2020) 15 Vital Signs: All taken on the encounter date This section contains inpatient and outpatient Vital Signs collected on the date of the Encounter. Date/Time Temperature Pulse Blood Pressure Respiratory Rate SP02 Pain Height Weight Body Mass Index Source Jul 15, 2025 08:38 AM 142/89 mm[Hg] [facility] Jul 15, 2025 08:38 AM 137/90 mm[Hg] [facility] Jul 15, 2025 08:38 AM 97.9 F 85 /min 146/101 mm[Hg] 20 /min 100 % 0 188.8 lb 27 [facility] Social History: Smoking Status (Most current) and Tobacco Use (All prior to encounter date) This section includes the most current, and the historical, smoking and tobacco- related health factors from the [place] facility where the Encounter took place. Current Smoking Status This section includes the most current smoking, or tobacco-related health factor, from the [place] facility where the Encounter took place. Date/Time Current Smoking Status Comment Yusuf cummins May 13, 2025 03:00 PM VA-TOBACCO USE EVERY DAY ENDS [facility] Tobacco Use History This section includes a history of the smoking, or tobacco-related health factors, that were collected on or before the date of the Encounter. The data comes from the [place] facility where the Encounter took place. Date/Time Smoking Status/Tobac co Use Comment Facility May 13, 2025 03:00 PM VA-TOBACCO USE GUILLERMINA RY DAY OTHER TYPE [facility] May 13, 2025 03:00 PM VA-TOBACCO USE FOR GRACIE CIGARETTES [facility] Dec 16, 2019 10:01 AM VA-TOBACCO USE > 1 5 LESS THAN 30 YEARS [facility] Dec 16, 2019 10:01 AM VA-TOBACCO USE ADVICE [facility] Dec 16, 2019 10:01 AM VA-TOBACCO USE COU NSEL YES Referral to Smoking Cessation [facility] Dec 16, 2019 10:01 AM VA-TOBACCO USE MED NOTIFY PROVIDER Has tried using gum to stop smoking,would like to try something [facility] Dec 16, 2019 10:01 AM VA-TOBACCO USE WI 30 MIN OF WAKEUP [facility] Dec 16, 2019 10:01 AM VA-TOBACCO USER EVERY DAY [facility] Dec 18, 2018 02:46 PM CURRENT TOBACCO USER [facility] Dec 13, 2018 10:59 AM CURRENT TOBACCO USER [facility] Dec 13, 2018 10:59 AM VA-TOBACCO USE 5 T O 15 YEARS [facility] Dec 13, 2018 10:59 AM VA-TOBACCO USE ADVICE [facility] Dec 13, 2018 10:59 AM VA-TOBACCO USE [employer] WREST[employer]ER NO [facility] Dec 13, 2018 10:59 AM VA-TOBACCO USE MED NO [facility] Dec 13, 2018 10:59 AM VA-TOBACCO USE WI 30 MIN OF WAKEUP [facility] Dec 13, 2018 10:59 AM VA-TOBACCO USER EVERY DAY [facility] Jul 06, 2010 01:01 PM CURRENT TOBACCO USER [facility] Encounter Notes: All associated encounter notes This section contains the clinical notes associated to the Encounter. Date/Time Encounter Note(s) Provider Source Jul 15, 2025 09:19 AM PRIMARY CARE PROGR ESS NOTE: LOCAL TITLE: PRIMARY CARE CLINIC PROGRESS NOTE PB STANDARD TITLE: PRIMARY CARE PROGRESS NOTE DATE OF NOTE: JUL 15, 2025@09:19 ENTRY DATE: JUL 15, 2025@09:19:28 AUTHOR: KRYSTAL YOUNG COSIGNER: URGENCY: STATUS: COMPLETED PRIMARY CARE CLINIC PROGRESS NOTE PB Has ADDENDA Parchman is presenting to the clinic today for his/her Telehealth appointment as scheduled. Parchman was assured that the Telehealth visit is a private, confidential clinical encounter and will not be recorded. The Telehealth process, procedures and expectations were explained to the patient, allowing time to voice any concerns. Parchman voiced understanding and consented to the Clinic visit. The visit proceeded without difficulty. CHIEF COMPLAINT: acute visit follow up ED History of Present Illness: Patient was seen in the emergency room for left-sided low back pain had a UTI had some abnormalities on his CT suggestive of pyelonephritis he had more flank pain at that time and he was started on cefdinir. He chronically takes his Cipro, takes it , and fridays per Infectious disease . Patient has stage IV CKD. sees nephrology in [place] Dr Santana, believed he saw Dr santana in june, next appt in september, I do not have any notes form nephrology in [facility] or in [facility], last note was from march sees urology [place] Dr Henson, saw him last and has a fu around august as well, also no notes in [facility] or [facility] except thatis current saw [facility] oncology in myeloma clinic and released back to Dr Marroquin here at [facility], stating per andrea no myeloma, no cancer at this time has an appt coming up w Dr Marroquin this at 2 pm denies any fever, sweats chills, no dysuria, no vomiting no diarrhea. blood sugars are good, off jardiance and using insulin only fbs this am is 109 average blood sugar 120 or 125 PAST MEDICAL HISTORY: 1) Disorder due to type 2 diabetes mellitus (SNOMED CT [id number]) 2) Routine Medical Exam 3) Current heavy tobacco smoker 4) Erectile dysfunction 5) Exposure to potentially hazardous substance (SCT 519644108891209) 6) Anemia (SCT [id number]) 7) UTI - Urinary Tract Infection (SCT 65535010) 8) Acute Renal Failure (SCT [id number]) 9) oncern for Multiple Myeloma by Dr Marroquin, = per andrea per [facility] NO cancer ALLERGY HISTORY:POISON ANDERSON ACTIVE MEDICATIONS:Active Outpatient Medications (including Supplies): EMPAGLIFLOZIN 25MG TAB TAKE ONE-HALF TABLET BY MOUTH EVERY ACTIVE MORNING Indication: FOR DIABETES FERROUS GLUCONATE 324MG TAB TAKE ONE TABLET BY MOUTH TWICE ACTIVE A DAY WITH MEALS Indication: FOR IRON DEFICIENCY ANEMIA GLUCOSE SENSOR FREESTYLE NAHUM 3 PLUS USE SENSOR EVERY ACTIVE 15 DAYS CHANGE SENSOR/SITE EVERY 15 DAYS. TO REPLACE SENSOR FOR ANY REASON OR FOR TECHNICAL HELP PLEASE CALL [facility] DESK: -SPECIFIC PHONE NUMBER: ([phone]). Indication: FOR BLOOD SUGAR MONITORING INSULIN,ASPART(EQV-NOVLG)100UN /ML [...] NEEDED AT THIS TIME. Indication: FOR DIABETES NEEDLE,PEN 32G,4MM USE 1 NEEDLE UNDER THE SKIN FOUR TIMES ACTIVE A DAY Indication: FOR INJECTION NICOTINE POLACRILEX 2MG MINI LOZENGE DISSOLVE 1 LOZENGE BY ACTIVE MOUTH EVERY 4 HOURS NEEDED .DO NOT SMOKE WHILE USING THIS MEDICATION. Indication: FOR TOBACCO CESSATION PANTOPRAZOLE NA 40MG EC TAB TAKE ONE TABLET BY MOUTH EVERY ACTIVE MORNING BEFORE A MEAL TAKE 30 MINUTES BEFORE MEAL(S) Indication: FOR GASTROESOPHAGEAL REFLUX DISEASE ROSUVASTATIN CA 10MG TAB TAKE ONE TABLET BY MOUTH EVERY ACTIVE EVENING Indication: FOR HIGH CHOLESTEROL Review of Systems: GENERAL:Denies fever, chills. CV: Denies chest pain, heart palpitations, or lightheadedness. PULM: Denies hemoptysis, cough GI: Denies hematochezia, melena, or abdominal pain. : Denies hematuria PSYCH: Denies suicidal, or homicidal ideation. VITAL SIGNS Pulse: 85 (07/15/2025 08:38) Blood Pressure: 142/89 (07/15/2025 08:38) Respiratory Rate: 20 (07/15/2025 08:38) Temperature: 97.9 F [36.6 C] (07/15/2025 08:38) Weight: 188.8 lb [85.64 kg] (07/15/2025 08:38) Height: 70 in [177.8 cm] (12/13/2018 10:57) Pain: 0 (07/15/2025 08:38) Physical Exam: GENERAL: A&Ox3, pleasant, appears stated age HEART: RRR, normal s1, s2 no s3 or s4, no JVD LUNGS: Good air movement throughout, clear to auscultation bilaterally, No wheezes, rales, or rhonchi ABDOMEN: Normal bowel sounds, Soft, non-tender, non-distended. PSYCH: Affect normal, answers questions appropriately throughout visit Data Review: DATE TEST RESULT UNITS RANGE ---- ---- ------ ----- ----- Data results reviewed with patient and/or caregiver. Assessment/Plan: elevated blood pressure with ot a diagnossi of htn anemia hx urosepsis , prostate abscess, pyelonephritis, on cipro chronically monday and fridays Medication Review: The essential med list for review which includes the patient's active VA prescriptions and if applicable, remote VA prescriptions, non-VA prescriptions, and discontinued VA prescriptions within the last 90 days and known allergies including local and remote allergies have been reviewed. -Needs to start blood pressure medication, keep blood pressure log, and follow up with nurse visit in 1 month -will get labs today -I do not have any nephrology or urology or oncology recent notes -sees DR Alessandro mcmullen pharmacist as well Health Maintenance: Discussed preventative health to include diet and exercise including immunizations. Discussed medications with patient; med rec completed. [...] in notification of imaging completion within [facility]. RTC: annually for exam, and labs, every 6 months for labs, and as needed CLINICAL REMINDERS COMPLETED /es/ KRYSTAL YOUNG MD Signed: 07/15/2025 09:46 07/15/2025 ADDENDUM STATUS: COMPLETED Chart reviewed patient had elevated blood pressure 150s/80s last month when he was in the ER, also when he saw oncology 147 over 80s heart rate of 94, although he was stressed he states. Prior to that oncology note said 124/70 Could be stress related patient is going through a lot currently we will have patient take medication as needed with parameters. For blood pressure and get a follow-up visit. Will start RAN inhibitor, and recheck bp log w hr in 1 month ,patietn aware for clinicn visit today /es/ KRYSTAL YOUNG MD Signed: 07/15/2025 11:15 KRYSTAL YOUNG [facility]
--- OUTSIDE RECORDS SUMMARY | 2025-08-11 07:00 | XMS_ITS | Encounter Summary ---
Author Name [facility] [place] [facility] [facility] [place] Address [address] [place] [address] Care Team Providers Care Lead Sprinkler Name Role Phone KRYSTAL YOUNG Primary Care [...] RX PRESCRIPT ION [facility] Nov 19, 2024 [facility] [id number] KEYSHAWN BERRY PATIENT PROCARE RX PRESCRIPT ION RX PLAN February 06, 2025 [id number] [phone] KEYSHAWN BERRY SPOUSE WEB TPA PREFERRED PROVIDER ORGANIZAT ION (PPO) [facility] February 06, 20252018[facility] C [phone] JEFFRY BERRY SPOUSE WEB TPA PREFERRED PROVIDER ORGANIZAT ION (PPO) [facility] Nov 19, 20242018[facility] C [id number] KEYSHAWN BERRY AD PATIENT Selected Encounter This section includes the information on record at [place] for the Encounter. Date/Time Encounter Type Encounter Description Reason Provider Source Aug 11, 2025 01:00 PM OFF/OP EST FEBRUARY X REQ PHY/QHP PRIMARY CARE/MEDICINE ICD-10-CM R31.9 Hematuria, unspecified WAQAS DEWEY IHS[facility] Encounter Template Text not used by [place] Assessments - Encounter Diagnoses This section includes the primary and secondary diagnoses documented for the Encounter. Date/Time Primary/Secondary Diagnosis Diagnosis Name Provider Source Aug 12, 2025 03:33 PM PRIMARY Hematuria, unspecified WAQAS DEWEY [facility] Plan of Treatment: Future Appointments (+ 6 months) and Future Tests (+/- 45 days) The Plan of Treatment section includes future care activities for the patient from all [place] treatmentfacilities. This section includes future appointments and future orders which are active, pending or scheduled. Future Appointments This section includes appointments that were scheduled to occur 6 months from the date of the Encounter, up to a maximum of 20 appointments. The data comes from all [place] treatment facilities. Appointment Date/Time Appointment Type Appointme nt Facility Name Sep 03, 2025 09:30 AM AMBULATORY - MEDICINE [facility] Active, Pending, and Scheduled Orders This section includes a listing of several types of active, pending, and scheduled orders, including clinic medications orders, diagnostic test orders, procedure orders and consult orders; where the start date of the order is 45 days before the date of the Encounter or 45 days after the date of theEncounter. The data comes from all [place] treatment facilities. Test Date/Time Test Type Test Details Facility Name Aug 11, 2025 01:16 PM Laboratory - Chemi stry Order POC UA (STL-PB-MA) URINE SP [facility] Aug 11, 2025 02:43 PM Laboratory - Microbiology Order C&S URINE URINE,CLEAN CATCH YASH HERNANDE[facility] Lab Results: +/- 30 days of the encounter This section includes the Chemistry and Hematology Lab Results on record with [place] for the patient. Radiology Reports and Pathology Reports are provided separately, in subsequent sections. Lab Results This section contains the Chemistry/Hematology Results that were resulted 30 days before or 30 daysafter the date of the Encounter. Date/Time Source Result Type Result - Unit Interpretation Reference Range Specimen Type Comment Aug 11, 2025 02:43 PM [facility] URINALYSIS W/ CX REFLEX (STL-PB) URINE Specim en Type: URINE No comment entered. Ordering Provider: ALIYAH OTERO Report Released Date/Time: Aug 11, 2025 01:57 PM Reporting Lab: [place] [facility] [address] [facility] [place] [address] Performing Lab: [place] [facility] [address] [facility] [address] URINE COLOR Brown Yellow U.BILIRUBIN NEGATIVE mg/dL [...] 1.013 1.005-1.029 Aug 11, 2025 01:21 PM [facility] POC UA (STL-PB-MA) URINE Specimen Type: URINE No comment entered. Ordering Provider: KRYSTAL YOUNG Report Released Date/Time: Aug 11, 2025 01:27 PM Reporting Lab: [facility] [address] [facility] [address] Performing Lab: [facility] [address] [facility] [address] PROTEIN POC UA 100 mg/dL Negative BLOOD [...] Cloudy CLEAR Jul 15, 2025 09:51 AM [facility] HGA1C BLOOD Specimen Type: BLOOD No comment entered. Ordering Provider: KRYSTAL YOUNG Report Released Date/Time: February 07, 2025 08:50 AM Reporting Lab: [place] [facility] [address] [place] [address] Performing Lab: [place] [facility] [address] [place] [address] HGA1C 5.4 4.0-6.0 Jul 15, 2025 09:51 AM [facility] PROCALCITONIN (PB) PLASMA Specimen Type: PLASM A No comment entered. Ordering Provider: KRYSTAL YOUNG Report Released Date/Time: Jul 15, 2025 09:50 AM Reporting Lab: [place] [facility] [address] [place] [address] Performing Lab: [place] [facility] [address] [place] [address] PROCALCITONIN (PB) 0.04 ng/mL 0-0.5 Jul 15, 2025 09:51 AM [facility] ALBUMIN PROFILE-ih (PB) URINE Specimen Type: URINE No comment entered. Ordering Provider: KRYSTAL YOUNG Report Released Date/Time: Jul 15, 2025 09:50 AM Reporting Lab: [place] [facility] [address] [place] [address] Performing Lab: [place] [facility] [address] [place] [address] URINE ALBUMIN (PB-STL) 43.08 mg/L uACR (PB-MA) 80.37 mg/g H 0-30 CREATININE URINE/OTHERS 53.60 mg/dL Jul 15, 2025 09:51 AM [facility] MAGNESIUM PLASM A Specimen Type: PLASMA No comment entered. Ordering Provider: KRYSTAL YOUNG Report Released Date/Time: Jul 15, 2025 09:50 AM Reporting Lab: [place] [facility] [address] [place] [address] Performing Lab: [place] [facility] [address] [place] [address] MAGNESIUM 2.34 mg/dL 1.6-2.6 Jul 15, 2025 09:51 AM [place] [facility] BASIC METABOLIC PANEL PLASMA Specimen Type: PL ASMA No comment entered. Ordering Provider: KRYSTAL YOUNG Report Released Date/Time: Jul 15, 2025 09:50 AM Reporting Lab: [place] [facility] [address] [place] [address] Performing Lab: [place] [facility] [address] [place] [address] CREATININE 4.78 mg/dL H 0.7-1.3 UREA NITROGEN 54 mg/dL H 9-25 GLUCOSE 111 mg/dL H 72-99 SODIUM 141 meq/L 136-145 POTASSIUM 5.0 meq/L 3.5-5 CHLORIDE 110 meq/L H 98-107 CARBON DIOXIDE 22 meq/L 22-31 CALCIUM 9.3 mg/dL 8.4-10.4 EGFR (CKD-EPI 2020) 15 Jul 15, 2025 09:51 AM [facility] BLOOD Specimen Type: BLOOD No comment entered. Ordering Provider: KRYSTAL YOUNG Report Released Date/Time: Jul 15, 2025 09:50 AM Reporting Lab: [place] [facility] [address] [place] [address] Performing Lab: [place] [facility] [address] [place] [address] WBC 4.0 10*3/uL 3.6-11.2 RBC 3.76 10*6/uL [...] Pain Height Weight Body Mass Index Source Aug 11, 2025 01:01 PM 97.6 F 98 /min 117/77 mm[Hg] 20 /min 100 % 3 191.7 lb 28 [facility] Social History: Smoking Status (Most current) and Tobacco Use (All prior to encounter date) This section includes the most current, and the historical, smoking and tobacco- related health factors from the [place] facility where the Encounter took place. Current Smoking Status This section includes the most current smoking, or tobacco-related health factor, from the [place] facility where the Encounter took place. Date/Time Current Smoking Status Comment [facility] May 13, 2025 03:00 PM [place]-TOBACCO USE EVERY DAY OTHER T [facility] Tobacco Use History This section includes a history of the smoking, or tobacco-related health factors, that were collected on or before the date of the Encounter. The data comes from the [place] facility where the Encounter took place. Date/Time Smoking Status/Tobac co Use Comment Facility May 13, 2025 03:00 PM VA-TOBACCO USE GUILLERMINA RY DAY OTHER TYPE [facility] May 13, 2025 03:00 PM VA-TOBACCO USE FOR GRACIE CIGARETTES [facility] Dec 16, 2019 10:01 AM VA-TOBACCO USE > 1 5 LESS THAN 30 YEARS [facility] Dec 16, 2019 10:01 AM VA-TOBACCO USE ADVICE [facility] Dec 16, 2019 10:01 AM VA-TOBACCO USE COU NSEL YES Referral to Smoking Cessation [facility] Dec 16, 2019 10:01 AM VA-TOBACCO USE MED NOTIFY PROVIDER Has tried using gum to stop smoking,would like to try something [facility] Dec 16, 2019 10:01 AM VA-TOBACCO USE WI 30 MIN OF WAKEUP [facility] Dec 16, 2019 10:01 AM VA-TOBACCO USER EVERY DAY [facility] Dec 18, 2018 02:46 PM CURRENT TOBACCO USER [facility] Dec 13, 2018 10:59 AM CURRENT TOBACCO USER [facility] Dec 13, 2018 10:59 AM VA-TOBACCO USE 5 T O 15 YEARS [facility] Dec 13, 2018 10:59 AM VA-TOBACCO USE ADVICE [facility] Dec 13, 2018 10:59 AM VA-TOBACCO USE [address] NO [facility] Dec 13, 2018 10:59 AM VA-TOBACCO USE MED NO [facility] Dec 13, 2018 10:59 AM VA-TOBACCO USE WI 30 MIN OF WAKEUP [facility] Dec 13, 2018 10:59 AM VA-TOBACCO USER EVERY DAY [facility] Jul 06, 2010 01:01 PM CURRENT TOBACCO USER [facility] Encounter Notes: All associated encounter notes This section contains the clinical notes associated to the Encounter. Date/Time Encounter Note(s) Provider Source Aug 12, 2025 03:17 PM NURSING PROGRESS N OTE: LOCAL TITLE: NURSING NOTE PB STANDARD TITLE: NURSING PROGRESS NOTE DATE OF NOTE: AUG 12, 2025@15:17 ENTRY DATE: AUG 12, 2025@15:17:05 AUTHOR: WAQAS DEWEY EXP COSIGNER: URGENCY: STATUS: COMPLETED This is a 44 year old MALE with known Allergies as noted: POISON ANDERSON On the following Active Medications: Active Outpatient Medications (including Supplies): Active Outpatient Medications Status 1) CAPTOPRIL 12.5MG TAB TAKE ONE TABLET BY MOUTH THREE TIMES A ACTIVE DAY BEFORE MEALS Indication: FOR HIGH BLOOD PRESSURE 2) FERROUS GLUCONATE 324MG TAB TAKE ONE TABLET BY MOUTH TWICE A ACTIVE DAY WITH MEALS Indication: FOR IRON DEFICIENCY ANEMIA 3) GLUCOSE SENSOR FREESTYLE [facility] 3 PLUS USE SENSOR EVERY 15 ACTIVE DAYS CHANGE SENSOR/SITE EVERY 15 DAYS. TO REPLACE SENSOR FOR ANY REASON OR FOR TECHNICAL HELP PLEASE CALL [facility] HELP DESK: -SPECIFIC PHONE NUMBER: ([phone]). Indication: FOR BLOOD SUGAR MONITORING 4) INSULIN,ASPART(EQV-NOVLG)100 UN/ML FLXPEN INJECT 10 UNITS ACTIVE UNDER THE SKIN THREE TIMES A DAY BEFORE MEALS ADMINISTER 10 MINUTES BEFORE FOOD DIRECTED. REFRIGERATE UN-OPENED PENS. DISCARD CARTRIDGE 28 DAYS AFTER OPENING. Indication: FOR DIABETES 5) INSULIN,GLARGINE 100 UNT/ML 3ML SOLOSTAR INJECT 20 UNITS OF ACTIVE 100UNIT/ML UNDER THE SKIN ONCE A DAY ADMINISTER AT SAME TIME EACH DAY DIRECTED. DISCARD ANY OPEN CARTRIDGE AFTER 28 DAYS. DOSE ADJUSTMENT. NO EXTRA INSULIN NEEDED AT THIS TIME. Indication: FOR DIABETES 6) NEEDLE,PEN 32G,4MM USE 1 NEEDLE UNDER THE SKIN FOUR TIMES A ACTIVE DAY Indication: FOR INJECTION 7) NICOTINE POLACRILEX 2MG MINI LOZENGE DISSOLVE 1 LOZENGE BY ACTIVE MOUTH EVERY 4 HOURS NEEDED .DO NOT SMOKE WHILE USING THIS MEDICATION. Indication: FOR TOBACCO CESSATION 8) PANTOPRAZOLE NA 40MG EC TAB TAKE ONE TABLET BY MOUTH EVERY ACTIVE MORNING BEFORE A MEAL TAKE 30 MINUTES BEFORE MEAL(S) Indication: FOR GASTROESOPHAGEAL REFLUX DISEASE 9) ROSUVASTATIN CA 10MG TAB TAKE ONE TABLET BY MOUTH EVERY ACTIVE EVENING Indication: FOR HIGH CHOLESTEROL C/C: BP check S: Rumsey reports for scheduled Nurse visit for BP check. Rumsey started Captopril on12.5mg TID on 07/15/25. Rumsey did not present a BP log. 's BP in clinic was 117/77 HR 98. reports he has had blood in is urine for the last 2 weeks but it resolved on Monday. Rumsey denies any urinary symptoms. Rumsey reports he sees Dr. Mendez for Infectious disease and takes cipro 3 times per week and is unsure what he takes this for. O/A: ambulated to exam room with steady gait and no assistance. Rumsey alert and oriented x4 with unlabored breathing. Vital Signs: WNL Weight: 191.7 pounds P: Reviewed with Provider. Escalated to Provider visit. POC urine ordered and obtained. Abnormal results reviewed by Provider. Immediate need called and form given by Provider. Written script given to Rumsey for Macrobid. Culture and sensitivity ordered and sent. educated to complete antibiotics even if symptoms improve. RTC: Advised Rumsey to return to clinic as needed or report to ER if symptoms worsen. Per [facility] Directive 1605.06, wristband documentation: Patient wristband was removed and destroyed by (staff name) Waqas Dewey and placed in the designated [employer] bin. /es/ Waqas Dewey CHIEF DEPUTY SHERIFF [facility] Signed: 08/12/2025 15:32 Receipt Acknowledged By: * AWAITING SIGNATURE * ALIYAH OTERO [facility]
--- OUTSIDE RECORDS SUMMARY | 2025-08-13 04:50 | XMS_ITS | Continuity of Care Document ---
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 It does not include entries that were removed or entered in error. Problem Status Onset Date Problem Type Date of Resolution Comments Source Acute Renal Failure (SCT 30084159) Active Condition Jun 06, 2025 Entered By: KRYSTAL YOUNG Comment: nephrology consulted by urology [facility] Anemia (SCT 632185797) Active Condition February 07, 2025 Entered By: KRYSTAL YOUNG Comment: egd colonsocpy normal 01/2025 [facility] Current heavy tobacco smoker Active Condition [facility] Disorder due to type 2 diabetes mellitus (SNOMED CT [id number]) Active Condition May 05, 2025 Entered By: KRYSTAL YOUNG Comment: dka [facility] Elevated blood-pressure reading without diagnosis of hypertension Active [facility] Erectile dysfunction Active [facility] Exposure to potentially hazardous substance (SCT [id number]) Active Condition Jan 08 Entered By: CINTHIA PIKE Comment: Entered automatically through [facility] Problem List documentation program [facility] oncern for Multiple Myeloma by Dr Marroquin, = per andrea vazquez NO cancer Active Condition Jul 15 Entered By: KRYSTAL YOUNG Comment: sees oncology ozh and RFS to [facility] Myeloma clinic [facility] Routine Medical Exam Active Condition [facility] UTI - Urinary Tract Infection (SCT [id number]) Active Condition May 13, 2025 Entered By: KRYSTAL YOUNG Comment: utis sepsis, prostate abscess [facility] Diagnosis: ICD-10-CM R31.9 Hematuria, unspecified Active Diagnosis [facility] Diagnosis: ICD-10-CM E11.9 Type 2 diabetes mellitus without complications Active Diagnosis [facility] Diagnosis: ICD-10-CM N20.0 Calculus of kidney Active Diagnosis [facility] Diagnosis: ICD-10-CM Z13.5 Encounter for screening for eye and ear disorders Active Diagnosis [place] [facility] Diagnosis: ICD-10-CM N39.0 Urinary tract infection, site not specified Active Diagnosis [facility] Diagnosis: ICD-10-CM Z77.29 Contact with and exposure to other hazardous substances Active Diagnosis [place] [facility] Medications Combined list of outpatient medications from Department of Defense and Veterans Affairs facilities.Medications provided include 1) outpatient medications from the last 15 months, and 2) patient-reported medications. Medication Details Route Status Indication(s) Patie nt Instructions Prescription Expires Prescription Number Last Dispense Date Ordering Provider Order Date Order Qty Source CAPTOPRIL 12.5MG TAB TAKE ONE TABLET BY MOUTH THREE TIMES A DAY BEFORE MEALS FOR HIGH BLOOD PRESSURE ORAL ACTIVE 07/16/2026 [id number] 5 SANDRA YOUNG R [address] [place] [address] [facility] EMPAGLIFLOZ IN 25MG TAB TAKE ONE-HALF TABLET BY MOUTH EVERY MORNING FOR DIABETES ORAL DISCONT INUED BY PROVIDE R 03/18/2026 [id number] 5 MERLENE FELIPE 2024 45 [facility] EMPAGLIFLOZ IN 25MG TAB TAKE ONE TABLET BY MOUTH ONCE A DAY FOR DIABETES ORAL DISCONT INUED (EDIT) 02/04/2026 [id number] 5 MARYLU HENDERSON [address] [place] [address] [facility] EZETIMIBE 10MG TAB TAKE ONE TABLET BY MOUTH ONCE A DAY FOR HIGH CHOLESTE ROL ORAL DISCONT INUED BY PROVIDE R 02/04/2026 [id number] 5 MARYLU HENDERSON [address] [place] [address] [facility] FERROUS GLUCONATE 324MG TAB TAKE ONE TABLET BY MOUTH TWICE A DAY WITH MEALS FOR IRON DEFICIEN CY ANEMIA ORAL ACTIVE 01/21/2026 [id number] 5 MARYLU HENDERSON 2024 200 [facility] FERROUS SO4 325MG TAB TAKE ONE TABLET BY MOUTH TWICE A DAY WITH MEALS FOR IRON DEFICIEN CY ANEMIA ORAL DISCONT INUED BY PROVIDE R 01/07/2026 [id number] 5 MEENAKSHI CROOK T [address] [facility] INSULIN,ASP ART,HUMAN (EQV-NOVOLO G) 100 UNIT/ML,FLE XPEN,3ML INJECT 10 UNITS UNDER THE SKIN THREE TIMES A DAY BEFORE MEALS FOR DIABETES ADMINIST ER 10 MINUTES BEFORE FOOD DIRECTED . REFRIGER ATE UN-OPENE D PENS. DISCARD CARTRIDG E 28 DAYS AFTER OPENING. SUBCUT ANEOUS ACTIVE 01/21/2026 [id number] 5 MARYLU HENDERSON 2024 5 [facility] INSULIN,ASP ART,HUMAN (EQV-NOVOLO G) 100 UNIT/ML,FLE XPEN,3ML INJECT 8 UNITS UNDER THE SKIN THREE TIMES A DAY BEFORE MEALS FOR DIABETES ADMINIST ER 10 MINUTES BEFORE FOOD DIRECTED . REFRIGER ATE UN-OPENE D PENS. DISCARD CARTRIDG E 28 DAYS AFTER OPENING. SUBCUT ANEOUS DISCONT INUED (EDIT) 01/08/2026 [id number] 5 MEENAKSHI CROOKIAM T [address] [address] [facility] INSULIN,GLA [...] AT THIS TIME. SUBCUT ANEOUS ACTIVE 01/08/2026 [id number] 5 MEENAKSHI CROOKIAOmid T 2024 [address] [place] [facility] INSULIN,GLA RGINE,HUMAN 100 UNIT/ML INJ,SOLOSTA R,3ML INJECT 15 UNITS UNDER THE SKIN ONCE A DAY FOR DIABETES ADMINIST ER AT SAME TIME EACH DAY DIRECTED . DISCARD ANY OPEN CARTRIDG E AFTER 28 DAYS. SUBCUT ANEOUS DISCONT INUED (EDIT) 01/07/2026 [id number] 5 ARMAAN,WI LLWESTM T 2024 [address] [place] [facility] METFORMIN HCL 1000MG TAB TAKE ONE-HALF TABLET BY MOUTH TWICE A DAY WITH MEALS FOR DIABETES TAKE WITH FOOD. AVOID ALCOHOL. DISCONTI NUE BEFORE GETTING XRAY DYE. ORAL DISCONT INUED BY PROVIDE R 01/07/2026 [id number] 5 ARMAAN,WI LLIAM T [address] [place] [facility] METFORMIN HCL 500MG 24HR TAB,SA TAKE TWO TABLETS BY MOUTH TWICE A DAY WITH MEALS FOR DIABETES TAKE WITH FOOD. AVOID ALCOHOL. DISCONTI NUE BEFORE GETTING XRAY DYE. ORAL DISCONT INUED BY PROVIDE R 01/21/2026 [id number] 5 BEATRIZMARYLU W 2024 360 [facility] NICOTINE POLACRILEX 2MG MINI LOZENGE DISSOLVE 1 LOZENGE BY MOUTH EVERY 4 HOURS NEEDED FOR TOBACCO CESSATIO N .DO NOT SMOKE WHILE USING THIS MEDICATI ON. ORAL ACTIVE 02/04/2026 [id number] 5 BEATRIZMARYLU W 2024 81 [facility] PANTOPRAZOL E NA 40MG TAB,EC TAKE ONE TABLET BY MOUTH EVERY MORNING BEFORE A MEAL FOR GASTROES OPHAGEAL REFLUX DISEASE TAKE 30 MINUTES BEFORE MEAL(S) ORAL ACTIVE 01/07/2026 [id number] 5 ARMAAN,WI ANA MARIA T [address] [place] [facility] ROSUVASTATI N CA 10MG TAB TAKE ONE TABLET BY MOUTH EVERY EVENING FOR HIGH CHOLESTE ROL ORAL ACTIVE 03/18/2026 [id number] 5 MERLENE FELIPE 2024 90 [facility] Allergies, Adverse Reactions, Alerts Combined list of allergies from Department of Defense and Veterans Affairs facilities. It does not include entries that were removed or entered in error. Substance Category Reaction Severity Reaction type Status Date Reported Comments Source POISON ANDERSON Propensity to adverse reaction (finding) Urticaria active 0 [facility] Immunizations Combined list of available immunizations from the Department of Defense and Veterans Affairs facilities. Immunization Series Date Given Administered By Site Reaction Lot Number CVX Code Drug Costing Manager Status Comments Source TDAP 2018 115 complet ed [facility] INFLUENZA, UNSPECIFIED FORMULATION 2009 88 complet [facility] TDAP 6 2009 115 complet ed HISTORICA L INFORMATI ON - FROM OTHER [facility] TD (ADULT), 2 LF TETANUS TOXOID, PRESERVATIVE FREE, ADSORBED 5 1997 09 complet ed HISTORICA L INFORMATI ON - FROM OTHER REGISTRY, [facility] DTAP 4 1987 20 complet ed HISTORICA L INFORMATI ON - FROM OTHER REGISTRY, [facility] TRIVALENT OPV 1987 02 complet ed HISTORICA L INFORMATI ON - FROM OTHER REGISTRY, [facility] DTAP 3 1986 20 complet ed HISTORICA L INFORMATI ON - FROM OTHER [facility]ISTRY, [facility] TRIVALENT OPV 3 1986 02 complet ed HISTORICA L INFORMATI ON - FROM OTHER REGISTRY, [facility] DTAP 2 1986 20 complet ed HISTORICA L INFORMATI ON - FROM OTHER REGISTRY, [facility] TRIVALENT OPV 2 1986 02 complet ed HISTORICA L INFORMATI ON - FROM OTHER REGISTRY, [facility] DTAP 1 1986 20 complet ed HISTORICA L INFORMATI ON - FROM OTHER REGISTRY, [facility] TRIVALENT OPV 1 1986 02 complet ed [facility]IST[facility] L INFORMATI ON - FROM OTHER REGISTRY, [facility] MMR 1 1986 03 complet ed HISTORICA L INFORMATI ON - FROM OTHER REGISTRY, [facility] Results Combined list of recent chemistry, hematology and other laboratory results from Department of Defense and Veterans Affairs, ranging from 15 months to all on record, depending upon the facility. Order Name Results Value Reference Range Date Interpretation Specimen Comments Source URINALYSIS W/ CX REFLEX (STL-PB) COLOR OF URINE Brown 08/11 Specimen Type: URINE No comment entered. Ordering Provider: SUSAN OTERO Report Released Date/Time : Aug 11, 2025 01:57 PM Reporting Lab: [place] [facility] [address] [place] [address] Performin g Lab: [place] [facility] [address] [place] [address] [facility] URINALYSIS W/ CX REFLEX (STL-PB) BILIRUBIN.T OTAL [PRESENCE] IN URINE BY TEST STRIP NEGATIVEm g/dL 08/11 Specimen Type: URINE No comment entered. Ordering Provider: SUSAN OTERO Report Released Date/Time : Aug 11, 2025 01:57 PM Reporting Lab: [place] [facility] [address] [place] [address] Performin g Lab: [place] [facility] [address] [place] [phone] [facility] URINALYSIS W/ CX REFLEX (STL-PB) PH OF URINE BY TEST STRIP 6.0 5.0 - 8.0 08/11 Specimen Type: URINE No comment entered. Ordering Provider: SUSAN OTERO Report Released Date/Time : Aug 11, 2025 01:57 PM Reporting Lab: [place] [facility] [address] [place] [address] Performin g Lab: [place] [facility] [address] [place] [address] [facility] URINALYSIS W/ CX REFLEX (STL-PB) LEUKOCYTES [#/AREA] IN URINE SEDIMENT BY MICROSCOPY HIGH POWER FIELD 24 /[HPF] 0 - 5 08/11 Specimen Type: URINE No comment entered. Ordering Provider: SUSAN OTERO Report Released Date/Time : Aug 11, 2025 01:57 PM Reporting Lab: [place] [facility] [address] [place] [address] Performin g Lab: [place] [facility] [address] [place] [address] [facility] URINALYSIS W/ CX REFLEX (STL-PB) ERYTHROCYTE S [#/VOLUME] IN URINE SEDIMENT BY MICROSCOPY HIGH POWER FIELD 225 /[HPF] 0 - 5 08/11 H Specimen Type: URINE No comment entered. Ordering Provider: SUSAN OTERO Report Released Date/Time : Aug 11, 2025 01:57 PM Reporting Lab: [place] [facility] [address] [place] [address] Performin g Lab: [place] [facility] [address] [place] [address] [facility] URINALYSIS W/ CX REFLEX (STL-PB) APPEARANCE OF URINE TURBID 08/11 H Specimen Type: URINE No comment entered. Ordering Provider: SUSAN OTERO Report Released Date/Time : Aug 11, 2025 01:57 PM Reporting Lab: [place] [facility] [address] [place] [phone] Performin g Lab: [place] [facility] [address] [place] [address] [facility] URINALYSIS W/ CX REFLEX (STL-PB) NITRITE [PRESENCE] IN URINE BY TEST STRIP NEGATIVEm g/dL 08/11 Specimen Type: URINE No comment entered. Ordering Provider: SUSAN OTERO Report Released Date/Time : Aug 11, 2025 01:57 PM Reporting Lab: [place] [facility] [address] [place] [phone] Performin g Lab: [place] [facility] [address] [place] [phone] [facility] URINALYSIS W/ CX REFLEX (STL-PB) MUCUS [PRESENCE] IN URINE SEDIMENT BY LIGHT MICROSCOPY RARE/[LPF ] 08/11 Specimen Type: URINE No comment entered. Ordering Provider: SUSAN OTERO Report Released Date/Time : Aug 11, 2025 01:57 PM Reporting Lab: [place] [facility] [address] [place] [phone] Performin g Lab: [place] [facility] [address] [place] [address] [facility] URINALYSIS W/ CX REFLEX (STL-PB) GLUCOSE [MASS/VOLUM E] IN URINE BY TEST STRIP 100 mg/dL 08/11 H Specimen Type: URINE No comment entered. Ordering Provider: SUSAN OTERO Report Released Date/Time : Aug 11, 2025 01:57 PM Reporting Lab: [place] [facility] [address] [place] [address] Performin g Lab: [place] [facility] [address] [place] [phone] [facility] URINALYSIS W/ CX REFLEX (STL-PB) PROTEIN [MASS/VOLUM E] IN URINE BY TEST STRIP 70 mg/dL 08/11 H Specimen Type: URINE No comment entered. Ordering Provider: SUSAN OTERO Report Released Date/Time : Aug 11, 2025 01:57 PM Reporting Lab: [place] [facility] [address] [place] [address] Performin g Lab: [place] [facility] [address] [place] [address] [facility] URINALYSIS W/ CX REFLEX (STL-PB) URN.UROBILI NOGEN NORMALmg/ dL 08/11 Specimen Type: URINE No comment entered. Ordering Provider: SUSAN OTERO Report Released Date/Time : Aug 11, 2025 01:57 PM Reporting Lab: [place] [facility] [address] [place] [phone] Performin g Lab: [place] [facility] [address] [place] [phone] [facility] URINALYSIS W/ CX REFLEX (STL-PB) HEMOGLOBIN [MASS/VOLUM E] IN URINE BY TEST STRIP 3+mg/dL 08/11 H Specimen Type: URINE No comment entered. Ordering Provider: SUSAN OTERO Report Released Date/Time : Aug 11, 2025 01:57 PM Reporting Lab: [place] [facility] [address] [place] [address] Performin g Lab: [place] [facility] [address] [place] [phone] [facility] URINALYSIS W/ CX REFLEX (STL-PB) KETONES [MASS/VOLUM E] IN URINE BY TEST STRIP NEGATIVEm g/dL 08/11 Specimen Type: URINE No comment entered. Ordering Provider: SUSAN OTERO Report Released Date/Time : Aug 11, 2025 01:57 PM Reporting Lab: [place] [facility] [address] [place] [address] Performin g Lab: [place] [facility] [address] [place] [phone] [facility] URINALYSIS W/ CX REFLEX (STL-PB) URN.LEUK.ES T. 75 08/11 Specimen Type: URINE No comment entered. Ordering Provider: SUSAN OTERO Report Released Date/Time : Aug 11, 2025 01:57 PM Reporting Lab: [place] [facility] [address] [place] [phone] Performin g Lab: [place] [facility] [address] [place] [id number] [facility] URINALYSIS W/ CX REFLEX (STL-PB) SPECIFIC GRAVITY OF URINE 1.013 1.005 - 1.029 08/11 Specimen Type: URINE No comment entered. Ordering Provider: SUSAN OTERO Report Released Date/Time : Aug 11, 2025 01:57 PM Reporting Lab: [place] [facility] [address] [place] [phone] Performin g Lab: [place] [facility] [address] [place] [phone] [facility] POC UA (STL-PB-MA ) PROTEIN [MASS/VOLUM E] IN URINE BY TEST STRIP 100 mg/dL 08/11 Specimen Type: URINE No comment entered. Ordering Provider: SANDRA YOUNG Report Released Date/Time : Aug 11, 2025 01:27 PM Reporting Lab: [facility] [address] [place] [address] Performin g Lab: [place] [facility] [address] [facility] [place] [address] [place] [facility] POC UA (STL-PB-MA ) HEMOGLOBIN [MASS/VOLUM E] IN URINE BY TEST STRIP Large 08/11 Specimen Type: URINE No comment entered. Ordering Provider: SANDRA YOUNG Report Released Date/Time : Aug 11, 2025 01:27 PM Reporting Lab: [place] [facility] [address] [place] [facility] [address] Performin g Lab: [place] [facility] [address] [place] [facility] [place] [place] [address] [place] [facility] POC UA (STL-PB-MA ) LEUKOCYTES [PRESENCE] IN URINE Small 08/11 Specimen Type: URINE No comment entered. Ordering Provider: SANDRA YOUNG Report Released Date/Time : Aug 11, 2025 01:27 PM Reporting Lab: [place] [facility] [address] [facility] [address] [facility] [address] Performin g Lab: [place] [facility] [address] [facility] [address] [place] [facility] POC UA (STL-PB-MA ) COLOR OF URINE Red 08/11 Specimen Type: URINE No comment entered. Ordering Provider: SANDRA YOUNG Report Released Date/Time : Aug 11, 2025 01:27 PM Reporting Lab: [place] [facility] [address] [facility] [place] [address] Performin g Lab: [place] [facility] [address] [place] [facility] [place] [address] [place] [facility] POC UA (STL-PB-MA ) SPECIFIC GRAVITY OF URINE 1.015 1.005 - 1.030 08/11 Specimen Type: URINE No comment entered. Ordering Provider: SANDRA YOUNG Report Released Date/Time : Aug 11, 2025 01:27 PM Reporting Lab: [place] [facility] [address] [facility] [place] [address] Performin g Lab: [place] [facility] [address] [place] [facility] [address] [facility] POC UA (STL-PB-MA ) UROBILINOGE N [UNITS/VOLU ME] IN URINE 0.2 {Nano' U}/dL 0.1 - 1.0 08/11 Specimen Type: URINE No comment entered. Ordering Provider: SANDRA YOUNG Report Released Date/Time : Aug 11, 2025 01:27 PM Reporting Lab: [place] [facility] [address] [place] [facility] [address] Performin g Lab: [place] [facility] [address] [facility] [address] [facility] [address] [place] [facility] POC UA (STL-PB-MA ) BILIRUBIN.T OTAL [PRESENCE] IN URINE Negative 08/11 Specimen Type: URINE No comment entered. Ordering Provider: SANDRA YOUNG Report Released Date/Time : Aug 11, 2025 01:27 PM Reporting Lab: [place] [facility] [address] [facility] [address] [facility] [address] Performin g Lab: [place] [facility] [address] [facility] [address] [facility] [address] [place] [facility] POC UA (STL-PB-MA ) KETONES [MASS/VOLUM E] IN URINE BY TEST STRIP Negativem g/dL 08/11 Specimen Type: URINE No comment entered. Ordering Provider: SANDRA YOUNG Report Released Date/Time : Aug 11, 2025 01:27 PM Reporting Lab: [place] [facility] [address] [facility] [address] Performin g Lab: [facility] [address] [facility] [address] [facility] POC UA (STL-PB-MA ) GLUCOSE [MASS/VOLUM E] IN URINE BY TEST STRIP 100 mg/dL 08/11 Specimen Type: URINE No comment entered. Ordering Provider: SANDRA YOUNG Report Released Date/Time : Aug 11, 2025 01:27 PM Reporting Lab: [facility] [address] [facility] [address] Performin g Lab: [place] [facility] [address] [place] [address] [place] [facility] POC UA (STL-PB-MA ) PH OF URINE 5.5 5.0 - 8.0 08/11 Specimen Type: URINE No comment entered. Ordering Provider: SANDRA YOUNG Report Released Date/Time : Aug 11, 2025 01:27 PM Reporting Lab: [place] [facility] [address] [place] [address] Performin g Lab: [place] [facility] [address] [facility] [place] [address] [place] [facility] POC UA (STL-PB-MA ) NITRITE [PRESENCE] IN URINE BY TEST STRIP Negative 08/11 Specimen Type: URINE No comment entered. Ordering Provider: SANDRA YOUNG Report Released Date/Time : Aug 11, 2025 01:27 PM Reporting Lab: [place] [facility] [address] [facility] [address] Performin g Lab: [place] [facility] [address] [place] [facility] [place] [address] [facility] POC UA (STL-PB-MA ) CLARITY OF URINE Slightly Cloudy 08/11 Specimen Type: URINE No comment entered. Ordering Provider: SANDRA YOUNG Report Released Date/Time : Aug 11, 2025 01:27 PM Reporting Lab: [place] [facility] [address] [facility] [address] Performin g Lab: [place] [facility] [address] [facility] [place] [address] [place] [facility] HGA1C HEMOGLOBIN A1C/HEMOGLO BIN.TOTAL IN BLOOD 5.4 4.0 - 6.0 07/15 Specimen Type: BLOOD No comment entered. Ordering Provider: SANDRA YOUNG Report Released Date/Time : February 07, 2025 08:50 AM Reporting Lab: [place] [facility] [address] [place] [address] Performin g Lab: [place] [facility] [address] [place] [address] [facility] PROCALCITO MADDISON (PB) PROCALCITON IN [MASS/VOLUM E] IN SERUM OR PLASMA 0.04 ng/mL 0 - 0.5 07/15 Specimen Type: PLASMA No comment entered. Ordering Provider: SANDRA YOUNG Report Released Date/Time : Jul 15, 2025 09:50 AM Reporting Lab: [place] [facility] [address] [place] [address] Performin g Lab: [place] [facility] [address] [place] [address] [facility] URINE ALBUMIN PROFILE-ih (PB) ALBUMIN [MASS/VOLUM E] IN URINE 43.08 mg/L 07/15 Specimen Type: URINE No comment entered. Ordering Provider: SANDRA YOUNG Report Released Date/Time : Jul 15, 2025 09:50 AM Reporting Lab: [place] [facility] [address] [place] [address] Performin g Lab: [place] [facility] [address] [place] [address] [facility] URINE ALBUMIN PROFILE-ih (PB) ALBUMIN/CRE ATININE [MASS RATIO] IN URINE 80.37 mg/g 0 - 30 07/15 H Specimen Type: URINE No comment entered. Ordering Provider: SANDRA YOUNG Report Released Date/Time : Jul 15, 2025 09:50 AM Reporting Lab: [place] [facility] [address] [place] [address] Performin g Lab: [place] [facility] [address] [place] [address] [facility] URINE ALBUMIN PROFILE-ih (PB) CREATININE [MASS/VOLUM E] IN URINE 53.60 mg/dL 07/15 Specimen Type: URINE No comment entered. Ordering Provider: SANDRA YOUNG Report Released Date/Time : Jul 15, 2025 09:50 AM Reporting Lab: [place] [facility] [address] [place] [address] Performin g Lab: [place] [facility] [address] [place] [address] [facility] MAGNESIUM MAGNESIUM [MASS/VOLUM E] IN SERUM OR PLASMA 2.34 mg/dL 1.6 - 2.6 07/15 Specimen Type: PLASMA No comment entered. Ordering Provider: SANDRA YOUNG Report Released Date/Time : Jul 15, 2025 09:50 AM Reporting Lab: [place] [facility] [address] [place] [address] Performin g Lab: [place] [facility] [address] [place] [address] [facility] BASIC METABOLIC PANEL CREATININE [MASS/VOLUM E] IN SERUM OR PLASMA 4.78 mg/dL 0.7 - 1.3 07/15 H Specimen Type: PLASMA No comment entered. Ordering Provider: SANDRA YOUNG Report Released Date/Time : Jul 15, 2025 09:50 AM Reporting Lab: [place] [facility] [address] [place] [address] Performin g Lab: [place] [facility] [address] [place] [id number] [facility] BASIC METABOLIC PANEL UREA NITROGEN [MASS/VOLUM E] IN SERUM OR PLASMA 54 mg/dL 9 - 25 07/15 H Specimen Type: PLASMA No comment entered. Ordering Provider: SANDRA YOUNG Report Released Date/Time : Jul 15, 2025 09:50 AM Reporting Lab: [place] [facility] [address] [place] [address] Performin g Lab: [place] [facility] [address] [place] [address] 8 [facility] BASIC METABOLIC PANEL GLUCOSE [MASS/VOLUM E] IN SERUM OR PLASMA 111 mg/dL 72 - 99 07/15 H Specimen Type: PLASMA No comment entered. Ordering Provider: SANDRA YOUNG Report Released Date/Time : Jul 15, 2025 09:50 AM Reporting Lab: [place] [facility] [address] [place] [address] 8 Performin g Lab: [place] [facility] [address] [place] [address] 8 [facility] BASIC METABOLIC PANEL SODIUM [MOLES/VOLU ME] IN SERUM OR PLASMA 141 meq/L 136 - 145 07/15 Specimen Type: PLASMA No comment entered. Ordering Provider: SANDRA YOUNG Report Released Date/Time : Jul 15, 2025 09:50 AM Reporting Lab: [place] [facility] [address] [place] [address] 8 Performin g Lab: [place] [facility] [address] [place] [address] 8 [facility] BASIC METABOLIC PANEL POTASSIUM [MOLES/VOLU ME] IN SERUM OR PLASMA 5.0 meq/L 3.5 - 5 07/15 Specimen Type: PLASMA No comment entered. Ordering Provider: SANDRA YOUNG Report Released Date/Time : Jul 15, 2025 09:50 AM Reporting Lab: [place] [facility] [address] [place] [address] 8 Performin g Lab: [place] [facility] [address] [place] [address] 8 [facility] BASIC METABOLIC PANEL CHLORIDE [MOLES/VOLU ME] IN SERUM OR PLASMA 110 meq/L 98 - 107 07/15 H Specimen Type: PLASMA No comment entered. Ordering Provider: SANDRA YOUNG Report Released Date/Time : Jul 15, 2025 09:50 AM Reporting Lab: [place] [facility] [address] [place] [address] 8 Performin g Lab: [place] [facility] [address] [place] [address] 8 [facility] BASIC METABOLIC PANEL CARBON DIOXIDE, TOTAL [MOLES/VOLU ME] IN SERUM OR PLASMA 22 meq/L 22 - 31 07/15 Specimen Type: PLASMA No comment entered. Ordering Provider: SANDRA YOUNG Report Released Date/Time : Jul 15, 2025 09:50 AM Reporting Lab: [place] [facility] [address] [place] [address] 8 Performin g Lab: [place] [facility] [address] [place] [address] 8 [facility] BASIC METABOLIC PANEL CALCIUM [MASS/VOLUM E] IN SERUM OR PLASMA 9.3 mg/dL 8.4 - 10.4 07/15 Specimen Type: PLASMA No comment entered. Ordering Provider: SANDRA YOUNG Report Released Date/Time : Jul 15, 2025 09:50 AM Reporting Lab: [place] [facility] [address] [place] [address] 8 Performin g Lab: [place] [facility] [address] [place] [address] 8 [facility] BASIC METABOLIC PANEL GLOMERULAR FILTRATION RATE [VOLUME RATE/AREA] IN SERUM, PLASMA OR BLOOD BY CREATININE- BASED FORMULA ([id number] 2020)/1.73 SQ M 15 07/15 Specimen Type: PLASMA No comment entered. Ordering Provider: SANDRA YOUNG Report Released Date/Time : Jul 15, 2025 09:50 AM Reporting Lab: [place] [facility] [address] [place] [address] 8 Performin g Lab: [place] [facility] [address] [place] [address] 8 [facility] CBC LEUKOCYTES [#/VOLUME] IN BLOOD BY AUTOMATED COUNT 4.0 10*3/uL 3.6 - 11.2 07/15 Specimen Type: BLOOD No comment entered. Ordering Provider: SANDRA YOUNG Report Released Date/Time : Jul 15, 2025 09:50 AM Reporting Lab: [place] [facility] [address] [place] [address] 8 Performin g Lab: [place] [facility] [address] [place] [address] 8 [facility] CBC ERYTHROCYTE S [#/VOLUME] IN BLOOD BY AUTOMATED COUNT 3.76 10*6/uL 4.10 - 5.70 07/15 L Specimen Type: BLOOD No comment entered. Ordering Provider: SANDRA YOUNG Report Released Date/Time : Jul 15, 2025 09:50 AM Reporting Lab: [place] [facility] [address] [place] [address] 8 Performin g Lab: [place] [facility] [address] [place] [address] 8 [facility] CBC HEMOGLOBIN [MASS/VOLUM E] IN BLOOD 10.3 g/dL 13.1 - 16.8 07/15 L Specimen Type: BLOOD No comment entered. Ordering Provider: SANDRA YOUNG Report Released Date/Time : Jul 15, 2025 09:50 AM Reporting Lab: [place] [facility] [address] [place] [address] 8 Performin g Lab: [place] [facility] [address] [place] [address] 8 [facility] CBC HEMATOCRIT [VOLUME FRACTION] OF BLOOD BY CALCULATION 31.1 38.2 - 48.4 07/15 L Specimen Type: BLOOD No comment entered. Ordering Provider: SANDRA YOUNG Report Released Date/Time : Jul 15, 2025 09:50 AM Reporting Lab: [place] [facility] [address] [place] [address] 8 Performin g Lab: [place] [facility] [address] [place] [address] 8 [facility] CBC MCV [ENTITIC MEAN VOLUME] IN RED BLOOD CELLS BY AUTOMATED COUNT 82.7 fL 80.0 - 100.0 07/15 Specimen Type: BLOOD No comment entered. Ordering Provider: SANDRA YOUNG Report Released Date/Time : Jul 15, 2025 09:50 AM Reporting Lab: [place] [facility] [address] [place] [address] 8 Performin g Lab: [place] [facility] [address] [place] [address] 8 [facility] CBC MCH [ENTITIC MASS] BY AUTOMATED COUNT 27.4 pg 27.0 - 34.0 07/15 Specimen Type: BLOOD No comment entered. Ordering Provider: SANDRA YOUNG Report Released Date/Time : Jul 15, 2025 09:50 AM Reporting Lab: [place] [facility] [address] [place] [address] 8 Performin g Lab: [place] [facility] [address] [place] [address] 8 [facility] CBC MCHC [ENTITIC MASS/VOLUME ] IN RED BLOOD CELLS BY AUTOMATED COUNT 33.1 g/dL 33.0 - 36.0 07/15 Specimen Type: BLOOD No comment entered. Ordering Provider: SANDRA YOUNG Report Released Date/Time : Jul 15, 2025 09:50 AM Reporting Lab: [place] [facility] [address] [place] [address] 8 Performin g Lab: [place] [facility] [address] [place] [address] 8 [facility] CBC PLATELETS [#/VOLUME] IN BLOOD BY AUTOMATED COUNT 185 10*3/uL 150 - 400 07/15 Specimen Type: BLOOD No comment entered. Ordering Provider: SANDRA YOUNG Report Released Date/Time : Jul 15, 2025 09:50 AM Reporting Lab: [place] [facility] [address] [place] [address] 8 Performin g Lab: [place] [facility] [address] [place] [phone] 8 [facility] CBC PLATELET [ENTITIC MEAN VOLUME] IN BLOOD BY AUTOMATED COUNT 10.9 fL 7.5 - 11.2 07/15 Specimen Type: BLOOD No comment entered. Ordering Provider: SANDRA YOUNG Report Released Date/Time : Jul 15, 2025 09:50 AM Reporting Lab: [place] [facility] [address] [place] [address] 8 Performin g Lab: [place] [facility] [address] [place] [address] 8 [facility] CBC ERYTHROCYTE [DISTWIDTH] IN RED BLOOD CELLS BY AUTOMATED COUNT 14.7 11.8 - 15.1 07/15 Specimen Type: BLOOD No comment entered. Ordering Provider: SANDRA YOUNG Report Released Date/Time : Jul 15, 2025 09:50 AM Reporting Lab: [place] [facility] [address] [place] [address] 8 Performin g Lab: [place] [facility] [address] [place] [address] 8 [facility] CBC LYMPHOCYTES /LEUKOCYTES IN BLOOD BY AUTOMATED COUNT 37.7 07/15 Specimen Type: BLOOD No comment entered. Ordering Provider: SANDRA YOUNG Report Released Date/Time : Jul 15, 2025 09:50 AM Reporting Lab: [place] [facility] [address] [place] [address] 8 Performin g Lab: [place] [facility] [address] [place] [address] 8 [facility] CBC MONOCYTES/L EUKOCYTES IN BLOOD BY AUTOMATED COUNT 6.0 07/15 Specimen Type: BLOOD No comment entered. Ordering Provider: SANDRA YOUNG Report Released Date/Time : Jul 15, 2025 09:50 AM Reporting Lab: [place] [facility] [address] [place] [address] 8 Performin g Lab: [place] [facility] [address] [place] [address] 8 [facility] CBC NEUTROPHILS /LEUKOCYTES IN BLOOD BY AUTOMATED COUNT 51.6 07/15 Specimen Type: BLOOD No comment entered. Ordering Provider: SANDRA YOUNG Report Released Date/Time : Jul 15, 2025 09:50 AM Reporting Lab: [place] [facility] [address] [place] [address] 8 Performin g Lab: [place] [facility] [address] [place] [address] 8 [facility] CBC EOSINOPHILS /LEUKOCYTES IN BLOOD BY AUTOMATED COUNT 4.0 07/15 Specimen Type: BLOOD No comment entered. Ordering Provider: SANDRA YOUNG Report Released Date/Time : Jul 15, 2025 09:50 AM Reporting Lab: [place] [facility] [address] [place] [address] 8 Performin g Lab: [place] [facility] [address] [place] [address] 8 [facility] CBC BASOPHILS/L EUKOCYTES IN BLOOD BY AUTOMATED COUNT 0.5 07/15 Specimen Type: BLOOD No comment entered. Ordering Provider: SANDRA YOUNG Report Released Date/Time : Jul 15, 2025 09:50 AM Reporting Lab: [place] [facility] [address] [place] [address] 8 Performin g Lab: [place] [facility] [address] [place] [address] 8 [place] [facility] CBC LYMPHOCYTES [#/VOLUME] IN BLOOD BY AUTOMATED COUNT 1.52 10*3/uL 0.77 - 4.50 07/15 Specimen Type: BLOOD No comment entered. Ordering Provider: SANDRA YOUNG Report Released Date/Time : Jul 15, 2025 09:50 AM Reporting Lab: [place] [facility] [address] [place] [address] 8 Performin g Lab: [place] [facility] [address] [place] [address] 8 [facility] CBC MONOCYTES [#/VOLUME] IN BLOOD BY AUTOMATED COUNT 0.24 10*3/uL 0.19 - 0.8 07/15 Specimen Type: BLOOD No comment entered. Ordering Provider: SANDRA YOUNG Report Released Date/Time : Jul 15, 2025 09:50 AM Reporting Lab: [place] [facility] [address] [place] [address] 8 Performin g Lab: [place] [facility] [address] [place] [address] 8 [facility] CBC NEUTROPHILS [#/VOLUME] IN BLOOD BY AUTOMATED COUNT 2.08 10*3/uL 2.10 - 8.00 07/15 L Specimen Type: BLOOD No comment entered. Ordering Provider: SANDRA YOUNG Report Released Date/Time : Jul 15, 2025 09:50 AM Reporting Lab: [place] [facility] [address] [place] [address] 8 Performin g Lab: [place] [facility] [address] [place] [address] 8 [facility] CBC EOSINOPHILS [#/VOLUME] IN BLOOD BY AUTOMATED COUNT 0.16 10*3/uL 0.00 - 0.60 07/15 Specimen Type: BLOOD No comment entered. Ordering Provider: SANDRA YOUNG Report Released Date/Time : Jul 15, 2025 09:50 AM Reporting Lab: [place] [facility] [address] [place] [address] 8 Performin g Lab: [place] [facility] [address] [place] [address] 8 [facility] CBC BASOPHILS [#/VOLUME] IN BLOOD BY AUTOMATED COUNT 0.02 10*3/uL 0.00 - 0.20 07/15 Specimen Type: BLOOD No comment entered. Ordering Provider: SANDRA YOUNG Report Released Date/Time : Jul 15, 2025 09:50 AM Reporting Lab: [place] [facility] [address] [place] [address] 8 Performin g Lab: [place] [facility] [address] [place] [address] 8 [facility] CBC IMMATURE GRANULOCYTE S/LEUKOCYTE S IN BLOOD BY AUTOMATED COUNT 0.2 07/15 Specimen Type: BLOOD No comment entered. Ordering Provider: SANDRA YOUNG Report Released Date/Time : Jul 15, 2025 09:50 AM Reporting Lab: [place] [facility] [address] [place] [address] 8 Performin g Lab: [place] [facility] [address] [place] [address] 8 [facility] CBC IMMATURE GRANULOCYTE S [#/VOLUME] IN BLOOD BY AUTOMATED COUNT 0.01 10*3/uL 0.00 - 0.05 07/15 Specimen Type: BLOOD No comment entered. Ordering Provider: SANDRA YOUNG Report Released Date/Time : Jul 15, 2025 09:50 AM Reporting Lab: [place] [facility] [address] [place] [address] 8 Performin g Lab: [place] [facility] [address] [place] [address] 8 [facility] CBC LEUKOCYTES [#/VOLUME] IN BLOOD BY AUTOMATED COUNT 5.3 10*3/uL 3.6 - 11.2 05/13 Specimen Type: BLOOD No comment entered. Ordering Provider: SUSAN OTERO Report Released Date/Time : May 13, 2025 03:39 PM Reporting Lab: [place] [facility] [address] [place] [address] 8 Performin g Lab: [place] [facility] [address] [place] [address] 8 [facility] CBC ERYTHROCYTE S [#/VOLUME] IN BLOOD BY AUTOMATED COUNT 3.46 10*6/uL 4.10 - 5.70 05/13 L Specimen Type: BLOOD No comment entered. Ordering Provider: SUSAN OTERO Report Released Date/Time : May 13, 2025 03:39 PM Reporting Lab: [place] [facility] [address] [place] [address] 8 Performin g Lab: [place] [facility] [address] [place] [phone] 8 [facility] CBC HEMOGLOBIN [MASS/VOLUM E] IN BLOOD 9.0 g/dL 13.1 - 16.8 05/13 L Specimen Type: BLOOD No comment entered. Ordering Provider: SUSAN OTERO Report Released Date/Time : May 13, 2025 03:39 PM Reporting Lab: [place] [facility] [address] [place] [address] 8 Performin g Lab: [place] [facility] [address] [place] [phone] [facility] CBC HEMATOCRIT [VOLUME FRACTION] OF BLOOD 29.2 38.2 - 48.4 05/13 L Specimen Type: BLOOD No comment entered. Ordering Provider: SUSAN OTERO Report Released Date/Time : May 13, 2025 03:39 PM Reporting Lab: [place] [facility] [address] [place] [address] 8 Performin g Lab: [place] [facility] [address] [place] [address] 8 [facility] CBC MCV [ENTITIC VOLUME] BY AUTOMATED COUNT 84.4 fL 80.0 - 100.0 05/13 Specimen Type: BLOOD No comment entered. Ordering Provider: SUSAN OTERO Report Released Date/Time : May 13, 2025 03:39 PM Reporting Lab: [place] [facility] [address] [place] [address] 8 Performin g Lab: [place] [facility] [address] [place] [address] 8 [facility] CBC MCH [ENTITIC MASS] BY AUTOMATED COUNT 26.0 pg 27.0 - 34.0 05/13 L Specimen Type: BLOOD No comment entered. Ordering Provider: SUSAN OTERO Report Released Date/Time : May 13, 2025 03:39 PM Reporting Lab: [place] [facility] [address] [place] [address] 8 Performin g Lab: [place] [facility] [address] [place] [address] 8 [facility] CBC MCHC [MASS/VOLUM E] BY AUTOMATED COUNT 30.8 g/dL 33.0 - 36.0 05/13 L Specimen Type: BLOOD No comment entered. Ordering Provider: SUSAN OTERO Report Released Date/Time : May 13, 2025 03:39 PM Reporting Lab: [place] [facility] [address] [place] [phone] 8 Performin g Lab: [place] [facility] [address] [place] [phone] 8 [facility] CBC PLATELETS [#/VOLUME] IN BLOOD BY AUTOMATED COUNT 350 10*3/uL 150 - 400 05/13 Specimen Type: BLOOD No comment entered. Ordering Provider: SUSAN OTERO Report Released Date/Time : May 13, 2025 03:39 PM Reporting Lab: [place] [facility] [address] [place] [address] 8 Performin g Lab: [place] [facility] [address] [place] [address] 8 [facility] CBC PLATELET MEAN VOLUME [ENTITIC VOLUME] IN BLOOD BY AUTOMATED COUNT 10.2 fL 7.5 - 11.2 05/13 Specimen Type: BLOOD No comment entered. Ordering Provider: SUSAN OTERO Report Released Date/Time : May 13, 2025 03:39 PM Reporting Lab: [place] [facility] [address] [place] [address] 8 Performin g Lab: [place] [facility] [address] [place] [address] 8 [facility] CBC ERYTHROCYTE DISTRIBUTIO N WIDTH [RATIO] BY AUTOMATED COUNT 13.2 11.8 - 15.1 05/13 Specimen Type: BLOOD No comment entered. Ordering Provider: SUSAN OTERO Report Released Date/Time : May 13, 2025 03:39 PM Reporting Lab: [place] [facility] [address] [place] [address] 8 Performin g Lab: [place] [facility] [address] [place] [address] 8 [facility] CBC LYMPHOCYTES /100 LEUKOCYTES IN BLOOD BY AUTOMATED COUNT 35.5 05/13 Specimen Type: BLOOD No comment entered. Ordering Provider: SUSAN OTERO Report Released Date/Time : May 13, 2025 03:39 PM Reporting Lab: [place] [facility] [address] [place] [address] 8 Performin g Lab: [place] [facility] [address] [place] [address] 8 [facility] CBC MONOCYTES/1 00 LEUKOCYTES IN BLOOD BY AUTOMATED COUNT 7.2 05/13 Specimen Type: BLOOD No comment entered. Ordering Provider: SUSAN OTERO Report Released Date/Time : May 13, 2025 03:39 PM Reporting Lab: [place] [facility] [address] [place] [address] 8 Performin g Lab: [place] [facility] [address] [place] [address] 8 [facility] CBC NEUTROPHILS /100 LEUKOCYTES IN BLOOD BY AUTOMATED COUNT 51.2 05/13 Specimen Type: BLOOD No comment entered. Ordering Provider: SUSAN OTERO Report Released Date/Time : May 13, 2025 03:39 PM Reporting Lab: [place] [facility] [address] [place] [address] 8 Performin g Lab: [place] [facility] [address] [place] [address] 8 [facility] CBC EOSINOPHILS /100 LEUKOCYTES IN BLOOD BY AUTOMATED COUNT 4.2 05/13 Specimen Type: BLOOD No comment entered. Ordering Provider: SUSAN OTERO Report Released Date/Time : May 13, 2025 03:39 PM Reporting Lab: [place] [facility] [address] [place] [address] 8 Performin g Lab: [place] [facility] [address] [place] [address] 8 [facility] CBC BASOPHILS/1 00 LEUKOCYTES IN BLOOD BY AUTOMATED COUNT 1.3 05/13 Specimen Type: BLOOD No comment entered. Ordering Provider: SUSAN OTERO Report Released Date/Time : May 13, 2025 03:39 PM Reporting Lab: [place] [facility] [address] [place] [address] 8 Performin g Lab: [place] [facility] [address] [place] [address] 8 [facility] CBC LYMPHOCYTES [#/VOLUME] IN BLOOD BY AUTOMATED COUNT 1.87 10*3/uL 0.77 - 4.50 05/13 Specimen Type: BLOOD No comment entered. Ordering Provider: SUSAN OTERO Report Released Date/Time : May 13, 2025 03:39 PM Reporting Lab: [place] [facility] [address] [place] [address] 8 Performin g Lab: [place] [facility] [address] [place] [address] 8 [facility] CBC MONOCYTES [#/VOLUME] IN BLOOD BY AUTOMATED COUNT 0.38 10*3/uL 0.19 - 0.8 05/13 Specimen Type: BLOOD No comment entered. Ordering Provider: SUSAN OTERO Report Released Date/Time : May 13, 2025 03:39 PM Reporting Lab: [place] [facility] [address] [place] [address] 8 Performin g Lab: [place] [facility] [address] [place] [address] 8 [facility] CBC NEUTROPHILS [#/VOLUME] IN BLOOD BY AUTOMATED COUNT 2.70 10*3/uL 2.10 - 8.00 05/13 Specimen Type: BLOOD No comment entered. Ordering Provider: SUSAN OTERO Report Released Date/Time : May 13, 2025 03:39 PM Reporting Lab: [place] [facility] [address] [place] [address] 8 Performin g Lab: [place] [facility] [address] [place] [address] 8 [facility] CBC EOSINOPHILS [#/VOLUME] IN BLOOD BY AUTOMATED COUNT 0.22 10*3/uL 0.00 - 0.60 05/13 Specimen Type: BLOOD No comment entered. Ordering Provider: SUSAN OTERO Report Released Date/Time : May 13, 2025 03:39 PM Reporting Lab: [place] [facility] [address] [place] [address] Performin g Lab: [place] [facility] [address] [place] [address] [facility] CBC BASOPHILS [#/VOLUME] IN BLOOD BY AUTOMATED COUNT 0.07 10*3/uL 0.00 - 0.20 05/13 Specimen Type: BLOOD No comment entered. Ordering Provider: SUSAN OTERO Report Released Date/Time : May 13, 2025 03:39 PM Reporting Lab: [place] [facility] [address] [place] [phone] Performin g Lab: [place] [facility] [address] [place] [address] [facility] CBC IMMATURE GRANULOCYTE S/100 LEUKOCYTES IN BLOOD BY AUTOMATED COUNT 0.6 05/13 Specimen Type: BLOOD No comment entered. Ordering Provider: SUSAN OTERO Report Released Date/Time : May 13, 2025 03:39 PM Reporting Lab: [place] [facility] [address] [place] [address] Performin g Lab: [place] [facility] [address] [place] [address] [facility] CBC IMMATURE GRANULOCYTE S [#/VOLUME] IN BLOOD BY AUTOMATED COUNT 0.03 10*3/uL 0.00 - 0.05 05/13 Specimen Type: BLOOD No comment entered. Ordering Provider: SUSAN OTERO Report Released Date/Time : May 13, 2025 03:39 PM Reporting Lab: [place] [facility] [address] [place] [address] Performin g Lab: [place] [facility] [address] [place] [address] [facility] COMPREHENS JUAN A METABOLIC PANEL CREATININE [MASS/VOLUM E] IN SERUM OR PLASMA 4.57 mg/dL 0.7 - 1.3 05/13 H Specimen Type: PLASMA No comment entered. Ordering Provider: SUSAN OTERO Report Released Date/Time : May 13, 2025 03:39 PM Reporting Lab: [place] [facility] [address] [place] [address] Performin g Lab: [place] [facility] [address] [place] [phone] [facility] COMPREHENS JUAN A METABOLIC PANEL UREA NITROGEN [MASS/VOLUM E] IN SERUM OR PLASMA 63 mg/dL 9 - 25 05/13 H Specimen Type: PLASMA No comment entered. Ordering Provider: SUSAN OTERO Report Released Date/Time : May 13, 2025 03:39 PM Reporting Lab: [place] [facility] [address] [place] [address] Performin g Lab: [place] [facility] [address] [place] [address] [facility] COMPREHENS JUAN A METABOLIC PANEL GLUCOSE [MASS/VOLUM E] IN SERUM OR PLASMA 110 mg/dL 72 - 99 05/13 H Specimen Type: PLASMA No comment entered. Ordering Provider: SUSAN OTERO Report Released Date/Time : May 13, 2025 03:39 PM Reporting Lab: [place] [facility] [address] [place] [address] Performin g Lab: [place] [facility] [address] [place] [address] [place] [facility] COMPREHENS JUAN A METABOLIC PANEL SODIUM [MOLES/VOLU ME] IN SERUM OR PLASMA 141 meq/L 136 - 145 05/13 Specimen Type: PLASMA No comment entered. Ordering Provider: SUSAN OTERO Report Released Date/Time : May 13, 2025 03:39 PM Reporting Lab: [place] [facility] [address] [place] [address] Performin g Lab: [place] [facility] [address] [place] [address] [facility] COMPREHENS JUAN A METABOLIC PANEL POTASSIUM [MOLES/VOLU ME] IN SERUM OR PLASMA 5.4 meq/L 3.5 - 5 05/13 H Specimen Type: PLASMA No comment entered. Ordering Provider: SUSAN OTERO Report Released Date/Time : May 13, 2025 03:39 PM Reporting Lab: [place] [facility] [address] [place] [address] Performin g Lab: [place] [facility] [address] [place] [address] [facility] COMPREHENS JUAN A METABOLIC PANEL CHLORIDE [MOLES/VOLU ME] IN SERUM OR PLASMA 110 meq/L 98 - 107 05/13 H Specimen Type: PLASMA No comment entered. Ordering Provider: SUSAN OTERO Report Released Date/Time : May 13, 2025 03:39 PM Reporting Lab: [place] [facility] [address] [place] [address] Performin g Lab: [place] [facility] [address] [place] [address] [facility] COMPREHENS JUAN A METABOLIC PANEL CARBON DIOXIDE, TOTAL [MOLES/VOLU ME] IN SERUM OR PLASMA 19 meq/L 22 - 31 05/13 L Specimen Type: PLASMA No comment entered. Ordering Provider: SUSAN OTERO Report Released Date/Time : May 13, 2025 03:39 PM Reporting Lab: [place] [facility] [address] [place] [address] Performin g Lab: [place] [facility] [address] [place] [address] 8 [facility] COMPREHENS JUAN A METABOLIC PANEL CALCIUM [MASS/VOLUM E] IN SERUM OR PLASMA 8.7 mg/dL 8.4 - 10.4 05/13 Specimen Type: PLASMA No comment entered. Ordering Provider: SUSAN OTERO Report Released Date/Time : May 13, 2025 03:39 PM Reporting Lab: [place] [facility] [address] [place] [address] Performin g Lab: [place] [facility] [address] [place] [address] [facility] COMPREHENS JUAN A METABOLIC PANEL PROTEIN [MASS/VOLUM E] IN SERUM OR PLASMA 8.0 g/dL 6 - 8.6 05/13 Specimen Type: PLASMA No comment entered. Ordering Provider: SUSAN OTERO Report Released Date/Time : May 13, 2025 03:39 PM Reporting Lab: [place] [facility] [address] [place] [address] Performin g Lab: [place] [facility] [address] [place] [address] 8 [facility] COMPREHENS JUAN A METABOLIC PANEL ALBUMIN [MASS/VOLUM E] IN SERUM OR PLASMA 4.1 g/dL 3.4 - 5 05/13 Specimen Type: PLASMA No comment entered. Ordering Provider: SUSAN OTERO Report Released Date/Time : May 13, 2025 03:39 PM Reporting Lab: [place] [facility] [address] [place] [address] Performin g Lab: [place] [facility] [address] [place] [address] 8 [facility] COMPREHENS JUAN A METABOLIC PANEL BILIRUBIN.T OTAL [MASS/VOLUM E] IN SERUM OR PLASMA 0.2 mg/dL 0.2 - 1.2 05/13 Specimen Type: PLASMA No comment entered. Ordering Provider: SUSAN OTERO Report Released Date/Time : May 13, 2025 03:39 PM Reporting Lab: [place] [facility] [address] [place] [address] Performin g Lab: [place] [facility] [address] [place] [address] [facility] COMPREHENS JUAN A METABOLIC PANEL ALKALINE PHOSPHATASE [ENZYMATIC ACTIVITY/VO LUME] IN SERUM OR PLASMA 75 U/L 40 - 150 05/13 Specimen Type: PLASMA No comment entered. Ordering Provider: SUSAN OTERO Report Released Date/Time : May 13, 2025 03:39 PM Reporting Lab: [place] [facility] [address] [place] [address] Performin g Lab: [place] [facility] [address] [place] [address] [facility] COMPREHENS JUAN A METABOLIC PANEL ASPARTATE AMINOTRANSF ERASE [ENZYMATIC ACTIVITY/VO LUME] IN SERUM OR PLASMA 12 U/L 5 - 34 05/13 Specimen Type: PLASMA No comment entered. Ordering Provider: SUSAN OTERO Report Released Date/Time : May 13, 2025 03:39 PM Reporting Lab: [place] [facility] [address] [place] [address] Performin g Lab: [place] [facility] [address] [place] [address] 8 [facility] COMPREHENS JUAN A METABOLIC PANEL ALANINE AMINOTRANSF ERASE [ENZYMATIC ACTIVITY/VO LUME] IN SERUM OR PLASMA 11 U/L 8 - 40 05/13 Specimen Type: PLASMA No comment entered. Ordering Provider: SUSAN OTERO Report Released Date/Time : May 13, 2025 03:39 PM Reporting Lab: [place] [facility] [address] [place] [address] Performin g Lab: [place] [facility] [address] [place] [address] [facility] COMPREHENS JUAN A METABOLIC PANEL GLOMERULAR FILTRATION RATE/1.73 SQ M.PREDICTED [VOLUME RATE/AREA] IN SERUM, PLASMA OR BLOOD BY CREATININE- BASED FORMULA (CKD-EPI 2020) 15 05/13 Specimen Type: PLASMA No comment entered. Ordering Provider: SUSAN OTERO Report Released Date/Time : May 13, 2025 03:39 PM Reporting Lab: [place] [facility] [address] [place] [address] Performin g Lab: [place] [facility] [address] [place] [address] [facility] [place] [facility] Vital Signs Combined list of inpatient and outpatient Vital Signs from Department of Defense and Veterans Affairs, ranging from 12 months to all on record, depending upon the facility. Vital Sign Value Date Comments Source SYSTOLIC BLOOD PRESSURE 117 08/11/2025 13:01:00 [place] [facility] DIASTOLIC BLOOD PRESSURE 77 08/11/2025 13:01:00 [place] [facility] PULSE OXIMETRY 100 % 08/11/2025 13:01:00 [facility] [place] [facility] WEIGHT 191.7 08/11/2025 13:01:00 [place] [facility] BMI 28 kg/m2 08/11/2025 13:01:00 [place] [facility] PAIN 3 08/11/2025 13:01:00 [place] [facility] TEMPERATURE 97.6 08/11/2025 13:01:00 [place] [facility] PULSE 98 08/11/2025 13:01:[place] [facility] RESPIRATION 20 08/11/2025 13:01:00 [place] [facility] SYSTOLIC BLOOD PRESSURE 146 07/15/2025 08:38:53 [place] [facility] DIASTOLIC BLOOD PRESSURE 101 07/15/2025 08:38:53 [place] [facility] PULSE OXIMETRY 100 % 07/15/2025 08:38:53 [facility] [place] [facility] WEIGHT 188.8 07/15/2025 08:38:53 [place] [facility] BMI 27 kg/m2 07/15/2025 08:38:53 [place] [facility] PAIN 0 07/15/2025 08:38:53 [place] [facility] TEMPERATURE 97.9 07/15/2025 08:38:53 [place] [facility] PULSE 85 07/15/2025 08:38:53 [place] [facility] RESPIRATION 20 07/15/2025 08:38:53 [place] [facility] SYSTOLIC BLOOD PRESSURE 149 05/13/2025 15:28:55 [place] [facility] DIASTOLIC BLOOD PRESSURE 89 05/13/2025 15:28:55 [place] [facility] PULSE OXIMETRY 100 % 05/13/2025 15:28:55 [facility] [place] [facility] WEIGHT 183.1 05/13/2025 15:28:55 [place] [facility] BMI 26 kg/m2 05/13/2025 15:28:55 [place] [facility] PAIN 0 05/13/2025 15:28:55 [place] [facility] TEMPERATURE 98.2 05/13/2025 15:28:55 [place] [facility] PULSE 80 05/13/2025 15:28:55 [place] [facility] RESPIRATION 20 05/13/2025 15:28:55 [place] [facility] SYSTOLIC BLOOD PRESSURE 122 03/11/2025 15:16:00 [place] [facility] DIASTOLIC BLOOD PRESSURE 87 03/11/2025 15:16:00 [place] [facility] TEMPERATURE 97.9 03/11/2025 15:16:00 [place] [facility] PULSE 92 03/11/2025 15:16:00 [place] [facility] SYSTOLIC BLOOD PRESSURE 92 02/07/2025 13:30:00 [place] [facility] DIASTOLIC BLOOD PRESSURE 63 02/07/2025 13:30:00 [place] [facility] TEMPERATURE 98.4 02/07/2025 13:30:00 [place] [facility] PULSE 74 02/07/2025 13:30:00 [place] [facility] Encounters Combined list of: 1) Encounters from Department of Veterans Affairs facilities going backup to the last 18 months, not all VA inpatient encounters are included; 2) Encounters from the Department of Defense facilities going backup to 280 months. Location Location Details Encounter Type Encounter Number Reason For Visit Attending Provider ADM Date DC Date Status Disposition Source [facility] Encounter [id number] 12/26 [facility] Outpatient Encounter [id number] 12[facility]28 [facility] En[facility] [id number] 01/01 [facility] [place] [id number] Diagnos is: ICD-10- CM E11.9 Type 2 diabete s mellitu s without complic ations MARIE CROOK T 01/06 [facility] [place] [facility] OFFICE O/P EST MOD 30 MIN [id number] Diagnos is: ICD-10- CM E11.9 Type 2 diabete s mellitu s without complic ations MARIE CROOK T 01/06 [place] [facility] ADDL 15 MIN [id number] Diagnos is: ICD-10- CM E11.9 Type 2 diabete s mellitu s without complic ations Kianna HENDERSON MARLINE W 01/06 [facility] [place] [facility] Outpatient Encounter [id number] 01/06 [place] [facility] Outpatient Encounter [id number] 01/10 [facility] Outpatient Encounter [id number] 01/15 [facility] MTMS BY PHARM ADDL 15 MIN [id number] Diagnos is: ICD-10- CM E11.9 Type 2 diabete s mellitu s without complic ations BEATRIZJ MARLINE W 01/20 [facility] [place] [facility] MTMS BY PHARM 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 15 MIN [id number] Diagnos is: ICD-10- CM E11.9 Type 2 diabete s mellitu s without complic ations JOLANTA RODAS V 01/20 [place] [facility] Outpatient Encounter [id number] 01/21 [facility] Encounter [id number] 01/21 [facility] Encounter [id number] 01/27 [facility] FAC[facility] FEE [id number] KRYSTAL YOUNG R 01/28 [facility] OFFICE O/P EST LOW 20 MIN [id number] Diagnos is: ICD-10- CM E11.9 Type 2 diabete s mellitu s without complic ations OSWALDOYasmaniSANDRAE R 01/28 [facility] Outpatient Encounter [id number] 01/30 [facility] Outpatient Encounter [id number] 01/30 [facility] Outpatient Encounter [id number] 01/31 [facility] [place] [facility] Outpatient Encounter [id number] 01/31 [facility] MTMS BY PHARM ADDL 15 MIN [id number] Diagnos is: ICD-10- CM E11.9 Type 2 diabete s mellitu s without complic ations Kianna HENDERSON 02/03 [facility] Outpatient Encounter [id number] 02/03 [facility] [place] [facility] SYNCH AUDIO-ONLY EST SF 10 [id number] Diagnos is: ICD-10- CM Z77.29 Contact with and exposur e to other hazardo us substan ANITA Stevenson CIA D 02/04 [place] [facility] Outpatient Encounter [id number] 02/07 [facility] OFF/OP EST FEBRUARY X REQ PHY/QHP [id number] Diagnos is: ICD-10- CM N39.0 Urinary tract infecti on, site not specifi ed CUSTRED,TO RRI J 02/07 [facility] [place] [facility] Outpatient Encounter [id number] NIMO KWONG N 02/07 [facility] En[facility] [id number] 02/07 [facility] Outpatient Encounter [id number] 02/10 [facility] Outpatient Encounter [id number] 02/11 [facility] Outpatient Encounter [id number] [id number] 02/11 [facility] Outpatient Encounter [id number] 02/13 [facility] Outpatient Encounter [id number] [id number] 02/14 [facility] Outpatient Encounter [id number] 02/14 [facility] Outpatient Encounter [id number] 02/14 [facility] Outpatient Encounter [id number] [id number] 02/14 [facility] Outpatient Encounter [id number] 02/15 [facility] Encounter [id number] [id number] 02/17 [facility] Outpatient Encounter [id number] ANABELLE ZAVALA A 02/19 [facility] Outpatient Encounter [id number] [id number] 02/21 [facility] Outpatient Encounter [id number] 02/25 [facility] [place] [facility] Outpatient Encounter [id number] 02/25 [place] [facility] [place] [facility] Outpatient Encounter [id number] 02/25 [place] [facility] FAYEDEVEN FERGUSONE [facility] Outpatient Encounter [id number] 02/27 [facility] FAYETTLICHA FERGUSONE [facility] Outpatient Encounter [id number] CARLOS BRODY 03/04 [facility] FAYETTPATRICIAI LLE [facility] Outpatient Encounter [id number] 03/05 [facility] Outpatient Encounter [id number] 03/06 [facility] [place] [facility] Outpatient Encounter [id number] 03/06 [place] [facility] Outpatient Encounter [id number] 03/07 [facility] Outpatient Encounter [id number] [id number] 03/07 [facility] Outpatient Encounter [id number] KRISTAL CHAUDHRY RIL L 03/07 [facility] Outpatient Encounter [id number] [id number] 03/07 [facility] Outpatient Encounter [id number] KRISTAL CHAUDHRY RIL L 03/10 [facility] Outpatient Encounter [id number] 03/10 [facility] OFF/OP EST FEBRUARY X REQ PHY/QHP [id number] Diagnos is: ICD-10- CM E11.9 Type 2 diabete s mellitu s without complic ations CUSTRED,TO RRPatrice J 03/11 [facility] En[facility] [id number] KAVITA ALVAREZ 03/12 [facility] Outpatient Encounter [id number] [id number] 03/13 [facility] MTMS BY PHARM ADDL 15 MIN [id number] Diagnos is: ICD-10- CM E11.9 Type 2 diabete s mellitu s without complic ations MATTEOMERLENE Anne 03/17 [facility] Encounter [id number] 03/17 [facility]counter [id number] 03/17 [facility] En[facility] [id number] 03/17 [facility] [id number] 03/18 [facility]counter [id number] 03/18 [facility]counter [id number] 03/25 [facility] Outpatient Encounter [id number] 03/25 [place] [facility] Outpatient Encounter [id number] 03/31 [facility] [place] [facility] Outpatient Encounter [id number] 03/31 [place] [facility] Outpatient Encounter [id number] 04[facility]01 [facility] Encounter [id number] 04/01 [facility] Outpatient Encounter [id number] 04/03 [facility] [place] [facility] MTMS BY PHARM ADDL 15 MIN [id number] Diagnos is: ICD-10- CM E11.9 Type 2 diabete s mellitu s without complic ations MERLENE FELIPE 04/04 [facility] Outpatient Encounter [id number] 04/08 [facility] Outpatient Encounter [id number] [id number] 04/10 [facility] Outpatient Encounter [id number] ANABELLE ZAVALA 04/29 [facility] Outpatient Encounter [id number] [id number] 05/02 [facility] Outpatient Encounter [id number] 05/02 [facility] [place] [facility] En[facility] [id number] 05/02 [place] [facility] Outpatient Encounter [id number] AGUS PATRICIO 05/07 [facility] [place] [facility] Outpatient Encounter [id number] Lani BARRIENTOS 05/09 [place] [facility] Outpatient Encounter [id number] 05/13 [facility] FAC[facility] FEE [id number] Diagnos is: ICD-10- CM N39.0 Urinary tract infecti on, site not specifi ed HANNAHSANDRAE R 05/13 [facility] Outpatient Encounter [id number] 05/13 [facility] OFFICE O/P EST MOD 30 MIN [id number] Diagnos is: ICD-10- CM N39.0 Urinary tract infecti on, site not specifi ed HANNAHKRYSTAL R 05/13 [facility] Outpatient Encounter [id number] 05/22 [facility] IMG RTA DETCJ/MNTR DS STAFF [id number] Diagnos is: ICD-10- CM Z13.5 Encount er for screeni ng for eye and ear disorde rs [facility] M 05/26 [facility] [place] [facility] Outpatient Encounter [id number] Diagnos is: ICD-10- CM Z13.5 Encount er for screeni ng for eye and ear disorde rs PORRASGERMAINELucian ROWAN S 05/26 [place] [facility] En[facility] [id number] [facility] M 05/26 [facility] Outpatient Encounter [id number] KRISTAL CHAUDHRY 06/05 [facility] PH1 ASSMT&MGMT NQHP 5-10 [id number] Diagnos is: ICD-10- CM N20.0 Calculu s of kidney CUSTRED,TO RRI J 06/17 [facility] Outpatient Encounter [id number] 06/23 [facility] Outpatient Encounter [id number] 06/30 [facility] PHARM ADDL 15 MIN [id number] Diagnos is: ICD-10- CM E11.9 Type 2 diabete s mellitu s without complic ations MERLENE FELIPE 07/04 [facility] Outpatient Encounter [id number] ANABELLE ZAVALA 07/04 [facility] Outpatient Encounter [id number] 07/08 [facility] Outpatient Encounter [id number] CUSTRED,TO RRI J 07/09 [facility] Outpatient Encounter [id number] KRISTAL CHAUDHRY 07/11 [facility] FAC[facility] FEE [id number] Diagnos is: ICD-10- CM E11.9 Type 2 diabete s mellitu s without complic ations Omid BECERRIL 07/15 [facility] OFFICE O/P EST MOD 30 MIN [id number] Diagnos is: ICD-10- CM E11.9 Type 2 diabete s mellitu s without complic ations AARONNISHAKRYSTAL Gruber 07/15 [facility]counter [id number] 07/17 [facility] Encounter [id number] 07/22 [facility] Encounter [id number] KRYSTAL YOUNG 08/04 [facility] OFF/OP EST FEBRUARY X REQ PHY/QHP [id number] Diagnos is: ICD-10- CM R31.9 Hematur ia, unspeci JIMBO Velasco 08/11 [facility] Social History Combined list of available smoking, tobacco, and other social history from Department of Defense and Veterans Affairs facilities. 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 [facility] Plan of Care List of future care activities from Department of Veterans Affairs facilities. Additional future care activities may be listed in the Assessment and Plan section. Date/Time Care Activity Care Activity Detail Facili ty 09/03/2025 AMBULATORY - MEDICINE AMBULATORY - MEDICI [facility] [place] [facility]
--- OUTSIDE RECORDS SUMMARY | 2025-08-13 04:51 | XMS_ITS | Clinical Summary ---
Author Organization [facility] Facility Address [address] [address] Care Team Providers Care Mill Oiler Name Role Phone Unavailable Primary Care Provider [...] complete this topic Insurance [id number] [place] [address] [facility] [employer] 1,2,3 (VACCN)
--- OUTSIDE RECORDS SUMMARY | 2025-08-13 04:52 | XMS_ITS | Encounter Summary ---
Author Organization [facility] Address [address] [place] [address] Care Team Providers Care Financial Associate Name Role Phone Unavailable Primary Care Provider [...]
--- OUTSIDE RECORDS SUMMARY | 2025-08-13 04:52 | XMS_ITS | Patient Health Record ---
Author Organization [facility] Address [address] [place] [address] Care Team Providers Care Mat Worker Name Role Phone Sil Gatica MD Primary Care Provider UnavailJess Russ Unavailable [phone] Jameel Schmitt Unavailable [phone] Chang García Unavailable [phone] Ni Parrynrin Unavailable [phone] Saurabh Mendez JR Unavailable [phone] Maria Luisa Baez Unavailable [phone] Muna Dubon Unavailable [phone] Nae Love Unavailable [phone] Allergies Allergen (clinical drug ingredient) Drug/Non Drug Allergy documented on EMR Reaction Allergy Type Onset Date Status No Known Drug Allergy Unknown Drug Allergy Active Results Component Value Reference Range Flag Notes Glucometer WBG--11970 Reviewed date:01/21/2025 02:36:40 PM Interpretation: Performing Lab: Notes/Report: Glucometer WBG 269 65-110 MG/DL HI Notify Dr~Asymptomatic~Meter : [id number]~Carpet Sewer: [id number] BRANDIE TITUS Microscopic Urine 27947 (Not yet reviewed by provider) Interpretation: Performing Lab: Notes/Report: Diagnosis Description: Abscess of prostate Diagnosis Description: Unspecified kidney failure RBC U 3 NA WBC U 26 0-5 /HPF HI Bacteria None Seen NA Hyaline Casts 1 NA SQ EPI <1 NA Culture Urine 86370 (Not yet reviewed by provider) Interpretation: Performing Lab: Notes/Report: Culture Urine SHANEL Ruiz Culture Urine t: Culture Urine Culture Urine Accessio [id number] Culture Urine n: Culture Urine Microbiology Culture [...] Culture Urine O1: Culture Urine (Culture Urine 83477) Culture Urine Diagnosis Description: Abscess of prostate Culture Urine Diagnosis Description: Unspecified kidney failure US Renal w/bladder-37612 Reviewed date:07/02/2025 07:27:20 AM Interpretation: Performing Lab: Notes/Report: See Below For Report US Renal w/bladder To be completed this week or next. Thank you. Read See Below For Report US Renal w/bladder-32391 Reviewed date:07/02/2025 07:16:53 AM Interpretation: Performing Lab: Notes/Report: [id number] [facility] [place], [place] - [address] Reviewed date:06/24/2025 10:06:18 AM Interpretation: Performing Lab: Notes/Report: Glucose 1+ Bili 0 Ketones 0 Sp [place] 1.015 Blood 2+ pH 6.0 Protein 0 Urobili 0 Nitrites 0 Leukocytes 1+ CRP 08101 (Not yet reviewed by provider) Interpretation: Performing Lab: Notes/Report: Diagnosis Description: Abscess of prostate CRP <.50 .40-1.00 MG/DL CBC w\ Auto Diff 84621 (Not yet reviewed by provider) Interpretation: Performing [...] 40.0-70.0 % Lymph Auto% 40.5 22.0-44.0 % [place] Auto% 5.8 3.0-7.0 % Eos Auto% 5.5 2.0-4.0 % HI Baso Auto% 0.7 0.0-1.0 % Imm Gran% .2 .0-.4 % Neutro Abs 1.97 .80-7.70 Absolute Neutrophil Count 1970 NA Lymph Abs 1.69 .10-4.10 [place] Abs .24 .20-1.00 Eos Abs .23 .00-.40 Baso Abs .03 .00-.20 Imm Gran Abs .01 .00-.10 NRBC# .00 .00-.20 NRBC% .00 .00-.20 /100 intact WBC's Comprehensive Metabolic Pane l (CMP) 53451 (Not yet reviewed by provider) Interpretation: Performing Lab: Notes/Report: Diagnosis Description: Abscess of prostate Glucose Serum 168 71-110 MG/DL HI Testing p erformed at [facility], [address] [place] [address] [place] [address]. CLIA ID#: [id number] BUN 70 7-21 MG/DL HI Creat 4.26 .57-1.17 MG/DL HI L-acjvbd-w-benzoquin one imine (NAPQI) is a metabolite of [...] UNIT/L Osmo Serum,Calculated 312 280-300 MOSM/KG HI [facility]A Without [employer]-Auto, [facility] [place] - [address] Reviewed date:05/13/2025 10:36:08 AM Interpretation: Performing Lab: Notes/Report: Glucose 2+ Bili 0 Ketones 0 Sp [place] 1.010 Blood 3+ pH 6.0 Protein +- Urobili 0 Nitrites 0 Leukocytes 3+ Phosphorus (B) 21681 Reviewed date:05/05/2025 04:51:50 PM Interpretation: Performing Lab: Notes/Report: Phos 4.7 2.4-5.1 MG/DL Magnesium (B) 74835 Reviewed date:05/05/2025 04:51:50 PM Interpretation: Performing Lab: Notes/Report: Magnesium 2.3 1.8-2.4 MG/DL CBC w\o Diff 59213 Reviewed date:05/05/2025 04:51:50 PM Interpretation: Performing Lab: Notes/Report: WBC 6.4 4.5-11.0 X10'3 RBC 2.69 4.50-5.90 X10'6 LOW Hgb 7.1 13.5-17.5 G/DL LOW Hct 21.9 41.0-53.0 % LOW MCV 81.4 80.0-100.0 FL MCH 26.4 27.0-31.0 PG LOW MCHC 32.4 31.0-37.0 G/DL Platelet 344 150-400 X10'3 RDW-SD 40.7 35.0-49.0 FL RDW-CV 13.5 12.2-15.6 % MPV 9.5 9.2-12.0 FL Phosphorus (B) 97773 Reviewed date:06/04/2025 01:33:05 PM Interpretation: Performing Lab: Notes/Report: Phos 5.2 2.4-5.1 MG/DL HI Add to Specimen in lab--No C PT Reviewed date:04/30/2025 08:35:52 PM Interpretation: Performing Lab: Notes/Report: Add To Specimen In Lab Yes Basic Metabolic Panel (BMP) 43959 Reviewed date:04/30/2025 08:36:07 PM Interpretation: Performing Lab: Notes/Report: Sodium 130 136-145 MMOL/L LOW Potassium 3.7 3.5-5.1 MMOL/L Chloride 102 98-107 MMOL/L CO2 13.7 20.0-31.0 MMOL/L LOW Glucose Serum 179 71-110 MG/DL HI Testing p erformed at [facility], [address] [place] [address] [place] [address]. CLIA ID#: [id number] BUN 91 7-21 MG/DL HI REPEATED - MONA Y Creat 6.11 .57-1.17 MG/DL HI O-yjwtyg-l-benzoquin one imine (NAPQI) is a metabolite of [...] Osmo Serum,Calculated 302 280-300 MOSM/KG HI Ferritin 57728 Reviewed date:04/30/2025 08:36:07 PM Interpretation: Performing Lab: Notes/Report: Ferritin 1253 8-388 NG/ML HI % Iron Saturation (Fe & TIBC )--65148,10206 Reviewed date:04/30/2025 08:36:07 PM Interpretation: Performing Lab: [...] 4 20-50 % LOW CBC w\o Diff 42174 Reviewed date:04/30/2025 08:36:07 PM Interpretation: Performing Lab: Notes/Report: WBC 9.9 4.5-11.0 X10'3 RBC 2.87 4.50-5.90 X10'6 LOW Hgb 7.7 13.5-17.5 G/DL LOW Hct 23.3 41.0-53.0 % LOW MCV 81.2 80.0-100.0 FL MCH 26.8 27.0-31.0 PG LOW MCHC 33.0 31.0-37.0 G/DL Platelet 267 150-400 X10'3 RDW-SD 40.4 35.0-49.0 FL RDW-CV 13.6 12.2-15.6 % MPV 9.7 9.2-12.0 FL US Renal w/bladder-97572 Reviewed date:04/10/2025 03:53:48 PM Interpretation: Performing Lab: Notes/Report: [id number]=iSite Culture Urine 57766 Reviewed date:04/04/2025 11:04:54 AM Interpretation: Performing Lab: Notes/Report: Culture Urine SHANEL Ruiz Culture Urine t: Culture Urine Culture Urine Accessio [id number] Culture Urine n: Culture Urine Microbiology Culture [...] Culture Urine O1: Culture Urine (Culture Urine 57600) Culture Urine Diagnosis Description: Unspecified symptoms and signs involving the genitourinary system [facility] [place], [place] - [address] Reviewed date:04/01/2025 08:30:44 AM Interpretation: Performing Lab: Notes/Report: Glucose 2+ Bili - Ketones - Sp [place] 1.010 Blood 1+ pH 6.0 Protein +- Urobili - Nitrites - Leukocytes 3+ CRP 38683 Reviewed date:03/08/2025 08:08:32 AM Interpretation: Performing Lab: Notes/Report: Diagnosis Description: Abscess of prostate Diagnosis Description: Unspecified kidney failure CRP 3.45 .40-1.00 MG/DL HI CBC w\ Auto Diff 46039 Reviewed date:03/08/2025 08:08:36 AM Interpretation: Performing Lab: [...] 40.0-70.0 % Lymph Auto% 23.6 22.0-44.0 % [place] Auto% 7.4 3.0-7.0 % HI Eos Auto% 8.8 2.0-4.0 % HI Baso Auto% 0.6 0.0-1.0 % Imm Gran% .6 .0-.4 % HI Neutro Abs 2.87 .80-7.70 Absolute Neutrophil Count 2870 NA Lymph Abs 1.15 .10-4.10 [place] Abs .36 .20-1.00 Eos Abs .43 .00-.40 HI Baso Abs .03 .00-.20 Imm Gran Abs .03 .00-.10 NRBC# .00 .00-.20 NRBC% .00 .00-.20 /100 intact WBC's Comprehensive Metabolic Pane l (CMP) 90570 Reviewed date:03/08/2025 08:08:41 AM Interpretation: Performing Lab: Notes/Report: Diagnosis Description: Abscess of prostate Diagnosis Description: Unspecified kidney failure Glucose Serum 217 71-110 MG/DL HI Testing p erformed at [facility], [address] [place] [address] [place] [address]. CLIA ID#: [id number] BUN 58 7-21 MG/DL HI Creat 4.18 .57-1.17 MG/DL HI R-yqwail-l-benzoquin one imine (NAPQI) is a metabolite of [...] 12-78 UNIT/L Osmo Serum,Calculated 289 280-300 MOSM/KG % Iron Saturation (Fe & TIBC )--09894,80938 Reviewed date:02/12/2025 04:25:31 PM Interpretation: Performing Lab: [...] Saturation 10 20-50 % LOW Phosphorus (B) 43468 Reviewed date:02/12/2025 04:25:31 PM Interpretation: Performing Lab: Notes/Report: 44 @ 2013 Phos 6.1 2.4-5.1 MG/DL HI Magnesium (B) 80764 Reviewed date:02/12/2025 04:25:31 PM Interpretation: Performing Lab: Notes/Report: 4420 @ 2013 Magnesium 1.9 1.8-2.4 MG/DL Comprehensive Metabolic Pane l (CMP) 68050 Reviewed date:02/13/2025 03:35:54 PM Interpretation: Performing Lab: Notes/Report: 44 @ 2013 Glucose Serum 134 71-110 MG/DL HI Testing p erformed at [facility], [address] [place] [address] [place] [address]. CLIA ID#: [id number] BUN 52 7-21 MG/DL HI Creat 6.93 .57-1.17 MG/DL HI C-pbobww-f-benzoquin one imine (NAPQI) is a metabolite of [...] UNIT/L Osmo Serum,Calculated 298 280-300 MOSM/KG Ferritin 14320 Reviewed date:02/12/2025 04:25:31 PM Interpretation: Performing Lab: Notes/Report: 4421 @ 2014 Ferritin 1106 8-388 NG/ML HI Calcium Ionized (B) 81015 Reviewed date:02/12/2025 04:25:31 PM Interpretation: Performing Lab: Notes/Report: 4421 @ 2013 Calcium Ionized 1.06 1.09-1.30 MMOL/L LOW CBC w\ Auto Diff 95164 Reviewed date:02/12/2025 04:25:31 PM Interpretation: Performing Lab: [...] HI Lymph Auto% 12.7 22.0-44.0 % LOW [place] Auto% 6.6 3.0-7.0 % Eos Auto% 3.2 2.0-4.0 % Baso Auto% 0.2 0.0-1.0 % Imm Gran% 2.7 .0-.4 % HI Neutro Abs 6.10 .80-7.70 Absolute Neutrophil Count 6100 NA Lymph Abs 1.04 .10-4.10 [place] Abs .54 .20-1.00 Eos Abs .26 .00-.40 Baso Abs .02 .00-.20 Imm Gran Abs .22 .00-.10 HI NRBC# .00 .00-.20 NRBC% .00 .00-.20 /100 intact WBC's Basic Metabolic Panel (BMP) 03890 Reviewed date:01/30/2025 10:24:37 AM Interpretation: Performing Lab: Notes/Report: in Endoscopy pre procedure area Sodium 134 136-145 MMOL/L LOW Potassium 3.6 3.5-5.1 MMOL/L Chloride 98 98-107 MMOL/L CO2 22.9 20.0-31.0 MMOL/L Glucose Serum 291 71-110 MG/DL HI Testing p erformed at [facility], [address] [place] [address] [place] [address]. CLIA ID#: [id number] BUN 37 7-21 MG/DL HI DELTA NOTED BY TECH Creat 2.80 .57-1.17 MG/DL HI O-qardsu-e-benzoquin one imine (NAPQI) is a metabolite of [...] MG/DL LOW Osmo Serum,Calculated 297 280-300 MOSM/KG Culture Urine 66056 Reviewed date:05/23/2025 06:55:17 AM Interpretation: Performing Lab: Notes/Report: Culture Urine Derek BERRY SHANEL R Culture Urine t: Culture Urine Culture Urine [facility] [id number] Culture Urine n: Culture Urine Microbiology Culture [...] Culture Urine O1: Culture Urine (Culture Urine 07663) Culture Urine Diagnosis Description: Acute cystitis without hematuria UA [facility] [place], [place] - [address] Reviewed date:05/20/2025 10:22:04 AM Interpretation: Performing Lab: Notes/Report: Glucose 1+ Bili 0 Ketones 0 Sp [place] 1.010 Blood 3+ pH 6.0 Protein +- Urobili 0 Nitrites 0 Leukocytes 3+ CBC w\o Diff 92332 Reviewed date:12/28/2024 01:56:29 PM Interpretation: Performing Lab: Notes/Report: 1W 2424 WBC 6.8 4.5-11.0 X10'3 RBC 4.83 4.50-5.90 X10'6 Hgb 13.0 13.5-17.5 G/DL LOW Hct 37.1 41.0-53.0 % LOW MCV 76.8 80.0-100.0 FL LOW MCH 26.9 27.0-31.0 PG LOW MCHC 35.0 31.0-37.0 G/DL Platelet 188 150-400 X10'3 RDW-SD 37.6 35.0-49.0 FL RDW-CV 13.3 12.2-15.6 % MPV 10.6 9.2-12.0 FL Comprehensive Metabolic Pane l (CMP) 59950 Reviewed date:02/14/2025 07:27:55 AM Interpretation: Performing Lab: Notes/Report: 4421 @ 2014 Glucose Serum 138 71-110 MG/DL HI Testing p erformed at [facility], [address] [place] [address] [place] [address]. CLIA ID#: [id number] BUN 44 7-21 MG/DL HI Creat 6.31 .57-1.17 MG/DL HI E-wvlyah-e-benzoquin one imine (NAPQI) is a metabolite of [...] UNIT/L Osmo Serum,Calculated 297 280-300 MOSM/KG CRP 06704 Reviewed date:02/14/2025 07:27:42 AM Interpretation: Performing Lab: Notes/Report: 4421 @ 2013 CRP 9.79 .40-1.00 MG/DL HI CBC w\ Auto Diff 78360 Reviewed date:02/14/2025 07:27:34 AM Interpretation: Performing Lab: [...] HI Lymph Auto% 11.6 22.0-44.0 % LOW [place] Auto% 4.9 3.0-7.0 % Eos Auto% 3.3 2.0-4.0 % Baso Auto% 0.2 0.0-1.0 % Imm Gran% 3.2 .0-.4 % HI Neutro Abs 7.15 .80-7.70 Absolute Neutrophil Count 7150 NA Lymph Abs 1.08 .10-4.10 [place] Abs .46 .20-1.00 Eos Abs .31 .00-.40 Baso Abs .02 .00-.20 Imm Gran Abs .30 .00-.10 HI NRBC# .00 .00-.20 NRBC% .00 .00-.20 /100 intact WBC's Microscopic Urine 03757 Reviewed date:03/08/2025 08:08:02 AM Interpretation: Performing Lab: Notes/Report: Diagnosis Description: Abscess of prostate Diagnosis Description: Unspecified kidney failure RBC U 94 NA WBC U 378 0-5 /HPF HI Bacteria 1+ NA Hyaline Casts 3 NA SQ EPI <1 NA Culture Urine 16183 Reviewed date:03/08/2025 08:07:55 AM Interpretation: Performing Lab: Notes/Report: Culture Urine SHANEL Ruiz Culture Urine t: Culture [id number] Culture Urine n: Culture Urine Microbiology Culture [...] Culture Urine O1: Culture Urine (Culture Urine 94488) Culture Urine Diagnosis Description: Abscess of prostate Culture Urine Diagnosis Description: Unspecified kidney failure PSA Diagnostic--87066 Reviewed date:03/08/2025 08:07:45 AM Interpretation: Performing Lab: Notes/Report: Diagnosis Description: Abscess of prostate PSA .12 .00-4.00 NG/ML PSA concen trations, regardless of the value, should not be interpreted as definitive evidence for the presence or absence of prostate cancer. Comprehensive Metabolic Pane l ([facility]) 09928 Reviewed date:03/26/2025 08:16:44 AM Interpretation: Performing Lab: Notes/Report: Diagnosis Description: Abscess of prostate Diagnosis Description: Unspecified kidney failure Glucose Serum 99 71-110 MG/DL Testing p erformed at [address] [place] [address]. CLIA ID#: [id number] BUN 67 7-21 MG/DL HI Creat 3.13 .57-1.17 MG/DL HI T-xgqjug-s-benzoquin one imine (NAPQI) is a metabolite of [...] 280-300 MOSM/KG HI CBC w\ Auto Diff 69728 Reviewed date:03/26/2025 08:16:37 AM Interpretation: Performing Lab: [...] 40.0-70.0 % Lymph Auto% 38.4 22.0-44.0 % [place] Auto% 5.7 3.0-7.0 % Eos Auto% 7.9 2.0-4.0 % HI Baso Auto% 0.6 0.0-1.0 % Imm Gran% .4 .0-.4 % Neutro Abs 2.33 .80-7.70 Absolute Neutrophil Count 2330 NA Lymph Abs 1.90 .10-4.10 [place] Abs .28 .20-1.00 Eos Abs .39 .00-.40 Baso Abs .03 .00-.20 Imm Gran Abs .02 .00-.10 NRBC# .00 .00-.20 NRBC% .00 .00-.20 /100 intact WBC's CRP 23901 Reviewed date:03/26/2025 08:16:31 AM Interpretation: Performing Lab: Notes/Report: Diagnosis Description: Abscess of prostate Diagnosis Description: Unspecified kidney failure CRP .66 .40-1.00 MG/DL Renal w/bladder-80070 Reviewed date:04/10/2025 03:53:39 PM Interpretation: Performing Lab: Notes/Report: See Below For Report US Renal w/bladder To be completed THIS WEEK OR NEXT. No later than 04/11/2025. Read See Below For Report Phosphorus (B) 61152 Reviewed date:04/30/2025 08:31:34 PM Interpretation: Performing Lab: Notes/Report: Phos 5.1 2.4-5.1 MG/DL Magnesium (B) 44396 Reviewed date:04/30/2025 08:31:34 PM Interpretation: Performing Lab: Notes/Report: Magnesium 2.5 1.8-2.4 MG/DL HI Microscopic Urine 30625 Reviewed date:07/07/2025 03:38:58 PM Interpretation: Performing Lab: Notes/Report: Diagnosis Description: Hematuria, unspecified RBC U 5 NA WBC U 20 0-5 /HPF HI Bacteria None Seen NA SQ EPI 1 NA CRP 95544 Reviewed date:02/24/2025 08:31:22 AM Interpretation: Performing Lab: Notes/Report: report called 3529 CRP 3.18 .40-1.00 MG/DL HI CBC w\ Auto Diff 47345 Reviewed date:02/14/2025 07:29:24 AM Interpretation: Performing Lab: [...] HI Lymph Auto% 11.8 22.0-44.0 % LOW [place] Auto% 4.6 3.0-7.0 % Eos Auto% 2.8 2.0-4.0 % Baso Auto% 0.2 0.0-1.0 % Imm Gran% 3.4 .0-.4 % HI Neutro Abs 6.35 .80-7.70 Absolute Neutrophil Count 6350 NA Lymph Abs .97 .10-4.10 [place] Abs .38 .20-1.00 Eos Abs .23 .00-.40 Baso Abs .02 .00-.20 Imm Gran Abs .28 .00-.10 HI NRBC# .00 .00-.20 NRBC% .00 .00-.20 /100 intact WBC's Comprehensive Metabolic Pane l (CMP) 20247 Reviewed date:02/14/2025 07:29:14 AM Interpretation: Performing Lab: Notes/Report: 4421 @ 2014 Glucose Serum 123 71-110 MG/DL HI Testing p erformed at [facility], [address] [place] [address] [place] [address]. CLIA ID#: [id number] BUN 46 7-21 MG/DL HI Creat 6.30 .57-1.17 MG/DL HI M-rkhvdf-l-benzoquin one imine (NAPQI) is a metabolite of [...] UNIT/L Osmo Serum,Calculated 295 280-300 MOSM/KG CRP 37379 Reviewed date:02/14/2025 07:29:09 AM Interpretation: Performing Lab: Notes/Report: 4421 @ 2013 CRP 12.03 .40-1.00 MG/DL HI Basic Metabolic Panel (BMP) 67903 Reviewed date:04/30/2025 08:35:52 PM Interpretation: Performing Lab: Notes/Report: Sodium 131 136-145 MMOL/L LOW Potassium 3.6 3.5-5.1 MMOL/L Chloride 103 98-107 MMOL/L CO2 12.5 20.0-31.0 MMOL/L LOW Glucose Serum 148 71-110 MG/DL HI Testing p erformed at [facility], [address] [place] [address] [place] [address]. CLIA ID#: [id number] BUN 78 7-21 MG/DL HI Delta check no dewey, will monitor Creat 6.13 .57-1.17 MG/DL HI H-lwocgo-v-benzoquin one imine (NAPQI) is a metabolite of [...] 298 280-300 MOSM/KG Basic Metabolic Panel (BMP) 22612 Reviewed date:06/04/2025 01:33:05 PM Interpretation: Performing Lab: Notes/Report: Sodium 135 136-145 MMOL/L LOW Potassium 3.8 3.5-5.1 MMOL/L Chloride 106 98-107 MMOL/L CO2 17.4 20.0-31.0 MMOL/L LOW Glucose Serum 142 71-110 MG/DL HI Testing p erformed at [facility], [address] [place] [address] [place] [address]. CLIA ID#: [id number] BUN 67 7-21 MG/DL HI REVIEWED - MONA Y. Creat 5.24 .57-1.17 MG/DL HI H-lwhawy-r-benzoquin one imine (NAPQI) is a metabolite of [...] MG/DL Osmo Serum,Calculated 302 280-300 MOSM/KG HI Reason For Referral Reason EGD/COLON Diagnosis 1 Microcytic anemia (D 50.9) Diagnosis 2 Chronic diarrhea (K5 2.9) Diagnosis 3 Chronic gastroesopha geal reflux disease (K21.9) Referring Provider First Name Sim Miguel Referring Provider Last Name CT [facility]erring Provider [facility] Referred Organization Count Includes [facility] Referred Provider Marybel Parry Referred Address [address] [place],[address],[place] Referral Priority Routine Reason Prostate Abscess Diagnosis 1 Prostate abscess (N4 1.2) Referring Provider First Name Sim braga Referring Provider Last Name CT Referring Provider [facility] Referred Organization Count Includes [facility] Urol [facility]gy [facility] Referred Provider Jameel Schmitt Referred Address [address],[place],[address],[place] Referred Provider Specialty Urology Referral Priority Routine Reason PEPTIC ULCER DISEASE GASTRITIS Diagnosis 1 Peptic ulcer disease (K27.9) Diagnosis 2 Gastritis (K29.70) Referral Organization [facility] Medicine & Infectious Disease Referring Provider First Name Saurabh Referring Provider Last Name Andrea Referring Provider Speciality Infectious Disease Referred Organization [facility] roenterology Clinic Referred Provider Marybel Parry Referred Address [address] [place],[address],[place] Referred Provider Specialty Gastroentero logy Referral Priority Routine Reason Referring to Dr Jona gutierrez. Thank you! , RFS sent Diagnosis 1 Referral of patient (Z76.89) Referring Provider First Name Jameel Referring Provider Last Name Keshia Referring Provider Speciality Urology Referred Organization Count Includes [facility] Neph rology Clinic Referred Provider Jess Hyde Referred Address [address] [place] [address] [address],[place],[address],[place] Referred Provider Specialty Nurse Abilio dowd Referral Priority Routine Reason Referring to Dr Jona gutierrez. Thank you! RFS sent Diagnosis 1 Referral of patient (Z76.89) Referral Organization Count Includes [facility] Urol [facility]gy Clinic Referring Provider First Name Jameel Referring Provider Last Name Keshia Referring Provider Speciality Urology Referred Organization Count Includes [facility] Neph [facility]logy [facility] Referred Provider Chang García Referred Address [address] [place] [address] [address],[place],[address],[place] Referred Provider Specialty Nephrology Referral Priority Routine Reason Referring to Dr Eric freed for chronic UTI. Thank you! RFS sent Diagnosis 1 Chronic UTI (N39.0) Referral Organization Count Includes [facility] Urol [facility]gy [facility] Referring Provider First Name Jameel Referring Provider Last Name Keshia Referring Provider Speciality Urology Referred Provider Saurabh Mendez Referred Provider Specialty Internal Med icine Referral Priority Routine Reason Chronic UTI RFS Se nt 05/13/25 Diagnosis 1 Chronic UTI (N39.0) Referring Provider First Name Jamele Referring Provider Last Name Keshia Referring Provider Speciality Urology Referred Organization [facility] Medicine & Infectious Disease Referred Provider Saurabh Mendez Referred Address [address] [place] [address],[place],[address], Referral Priority Routine Medications Medication SIG (Take, [...] needed Orally Once a day Active Dexcom Asset Card Clerk Kit Active Tylenol Extra Strength 500 MG [...] in home : Deployment History: [employer] [phone], 2 deploytments [employer] 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 Masters Degree Section Notes: Denies Caffeine Denies Alcohol Denies Caffeine Denies Alcohol Denies Caffeine Denies Alcohol Denies Caffeine Denies Alcohol Denies Caffeine Denies Alcohol Denies Caffeine Denies Alcohol Problems Problem Type SNOMED Code ICD Code Onset Dates Problem Status W/U Status Risk Notes Problem Benign prostatic hypertrophy without outflow obstruction (774095470) Benign prostatic hyperplasia without lower urinary tract symptoms (N40.0) Active confirmed Problem Essential hypertension (11680350) Essential hypertension (I10) Active confirmed Problem Lower urinary tract symptoms due to benign prostatic hypertrophy (93617545633683) Benign prostatic hyperplasia with lower urinary tract symptoms, symptom details unspecified (N40.1) Active confirmed Problem Gastroesophageal reflux disease (disorder) (018186766) Chronic GERD (K21.9) Active confirmed Problem Chronic kidney disease stage 4 (274140462) CKD (chronic kidney disease), stage IV (N18.4) Active confirmed Problem Hyperparathyroidism (31787411) Hyperparathyroidism (E21.3) Active confirmed Problem Hyperphosphatemia (55436426) Hyperphosphatemia (E83.39) Active confirmed Problem Renal failure syndrome (48891013) Renal failure, unspecified chronicity (N19) Active confirmed Problem Microcytic anemia (563096142) Microcytic anemia (D50.9) Active confirmed Problem Iron deficiency anemia (75833740) Iron deficiency anemia (D50.9) Active confirmed Problem Neurologic disorder associated with type II diabetes mellitus (503010801) 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) Active confirmed Problem Hyperglycemia due to type 2 diabetes mellitus (115972393943589) Type 2 diabetes mellitus with hyperglycemia, unspecified whether terminal carman insulin use (E11.65) Active confirmed Problem 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 Problem Gastroesophageal reflux disease (960858072) Chronic gastroesophageal reflux disease (K21.9) Active confirmed Problem Ketoacidosis in type II diabetes mellitus (195460732) Diabetes mellitus type 2 with ketoacidosis, uncontrolled (E11.10) Active confirmed Problem Hypotonic bladder (251134713) Hypotonic bladder (N31.2) Active confirmed Problem Chronic cystitis (45025055) Chronic cystitis (N30.20) Active confirmed Problem Diabetic severe hyperglycemia ([id number]) Other specified diabetes mellitus with hyperglycemia (E13.65) Active confirmed Problem Long-term current us e of insulin (881722229) Current use of insulin (Z79.4) Active confirmed Problem Peptic ulcer disease (65068071) Peptic ulcer disease (K27.9) Active confirmed Problem Gastritis (6902408) Gastritis (K29.70) Active c onfirmed Problem Iron deficiency anemia (79187285) Iron deficiency anemia, unspecified iron deficiency anemia type (D50.9) Active confirmed Problem Type II diabetes mellitus without complication (026952277) Type 2 diabetes mellitus without complications (E11.9) Active confirmed Vital Signs Heart Rate 100 [...] 66ml Encounters Encounter Location Date Provider Diagnosis Count Includes [facility] Internal Medicine & Infectious Disease [address] [place] [address] Sauarbh Andrea Abscess of prostate N41.2 and Renal failure, unspecified chronicity N19 Count Includes [facility] Internal Medicine & Infectious Disease [address] [place] [address], [place] [address] 5 Saurabh Andrea Abscess of prostate N41.2 and Renal failure, unspecified chronicity N19 Count Includes [facility] Internal Medicine & Infectious Disease [address] [place] [address], [place] [address] 5 Saurabh Andrea Abscess of prostate N41.2 and Renal failure, unspecified chronicity N19 Count Includes [facility] Internal Medicine & Infectious Disease [address] [place] [address], [place] [address] 5 Saurabh Andrea Abscess of prostate N41.2 and Renal failure, unspecified chronicity N19 Count Includes [facility] [address] [place] [address] [place] [address] 5 Jameel Schmitt Benign prostatic hyperplasia with lower urinary tract symptoms, symptom details unspecified N40.1 ; Chronic cystitis N30.20 and Hypotonic 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 Count Includes [facility]ph[facility] [address] [place] [address] Dr Anne [address] [place] [address] 5 Jess Hyde CKD (chronic kidney disease), stage IV N18.4 ; 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 ; Essential hypertension I10 ; Iron deficiency anemia, unspecified iron deficiency anemia type D50.9 ; Hyperphosphatemia E83.39 ; Hyperparathyroidism E21.3 and Hypotonic 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 Count Includes [facility] [address] [place] [address] [place] [address] 5 Jameel Rochasay Abscess of prostate N41.2 ; Flank pain R10.9 ; Incomplete bladder emptying R33.9 and Unspecified symptoms and signs involving the genitourinary system R39.9 Count Includes [facility] Internal Medicine & Infectious Disease [address] [place] [address], [place] [address] 5 Saurabh Andrea Abscess of prostate N41.2 and Renal failure, unspecified chronicity N19 Count Includes [facility] [address] [place] [address] [place] [address] 5 Jameel Schmitt Benign prostatic hyperplasia with lower urinary tract symptoms, symptom details unspecified N40.1 ; Chronic UTI N39.0 and Hypotonic 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 Count Includes [facility] Gastroenterology [facility] [address] [place] [address] 5 Marybel Parry Iron deficiency anemia, unspecified iron deficiency anemia type D50.9 [facility] [address] [place] [address] [place] [address] 5 Nae Love Other specified diabetes mellitus with hyperglycemia E13.65 ; Current use of insulin Z79.4 ; Diabetes education, encounter for Z71.89 ; Uses self-applied continuous glucose monitoring device Z97.8 and At risk for hypoglycemia Z91.89 Count Includes [facility] [address] [place] [address] [place] [address] 5 Jameel Schmitt Cystitis N30.90 and Acute cystitis without hematuria N30.00 Count Includes [facility] [address] [place] [address] Dr Anne [address] [place] [address] 5 Jameel Schmitt Count Includes [facility] [address] [place] [address] Dr Anne [address] [place] [address] 5 Chang García Iron deficiency anemia D50.9 ; Hyperphosphatemia E83.39 ; Hyperparathyroidism E21.3 and RENNY (acute kidney injury) N17.9 Count Includes [facility] [address] [place] [address] Dr Anne [address] [place] [address] 5 Jameel Schmitt Urinary retention R33.9 and Hematuria, unspecified type R31.9 Count Includes [facility] [address] [place] [address] Dr Anne [address] [place] [address] 5 Jameel Schmitt Abscess of prostate N41.2 and Flank pain R10.9 Count Includes [facility] Internal Medicine & Infectious Disease [address] [place] [address] [place] [address] 5 Saurabh Mendez Count Includes [facility] G[facility]ology [facility] [address] [place] [address] 5 Marybel Parry Count Includes [facility] [address] [place] [address] Dr Anne [address] [place] [address] 5 Chang García Count Includes [facility] [address] [place] [address] 5 Abodunrin Badejo Acute kidney injury N17.9 Count Includes [facility] [address] [place] [address] 5 Abodunrin Reynaldoerere Iron deficiency anemia, unspecified iron deficiency anemia type D50.9 Count Includes [facility] [address] [place] [address] 5 Muna Dubon Count Includes [facility] [address] [place] [address] Dr Anne [address] [place] [address] 5 Jess Hyde Count Includes [facility] [address] [place] [address] 5 Jameel Schmitt Count Includes [facility] [address] [place] [address] Dr Anne [address] [place] [address] 5 Jameel Schmitt Count Includes [facility] [address] [place] [address] Dr Anne [address] [place] [address] 5 Jameel Schmitt Benign prostatic hyperplasia without lower urinary tract symptoms N40.0 ; Flank pain R10.9 and Hematuria R31.9 Count Includes [facility] [address] [place] [address] Dr [address] [place] [address] 5 Jess Hyde Count Includes [facility] [address] [place] [address] Dr Anne [address] [place] [address] 5 Jameel Schmitt Assessments Encounter Date Diagnosis (ICD Code) Assessment Notes Treatment Notes Treatment Clinical Notes Section Notes 12/30/2024 Iron deficiency anemia, unspecified iron deficiency anemia type (ICD-10 - D50.9) 04/01/2025 Abscess of prostate (ICD-10 - N41.2) 04/01/2025 Flank pain (ICD-10 - R10.9) 05/06/2025 Iron deficiency anemia (ICD-10 - D50.9) 06/30/2025 Abscess of prostate (ICD-10 - N41.2) 1. 44 yo white male with a history of recurrent UTI's, T2DM, nephropathy, neuropathy, and cigarette smoker - Prostatic abscess, and renal failure -followed by Dr. Santana (Kidney) 2. Hospitalized in April 2025 for UTI at [facility] (elevated WBC, UC Neg at that time) -advised to get records from [facility] -was treated with Cipro 3. Diagnostics; -CT [...] (start date 06-16-25) Labs 06-16-25 W 4.2, Food And Beverage Intern 4.26, CRP <.50, UC Neg 06-24-25 UM WBC 20 Follow up; 4 months Rosa Garber 06/30/2025 Renal failure, unspecified chronicity (ICD-10 - N19) 1. 44 yo white male with a history of recurrent UTI's, T2DM, nephropathy, neuropathy, and cigarette smoker - Prostatic abscess, and renal failure -followed by Dr. Santana (Kidney) 2. Hospitalized in April 2025 for UTI at [facility] (elevated WBC, UC Neg at that time) -advised to get records from [place] -was treated with Cipro 3. Diagnostics; -CT [...] (start date 06-16-25) Labs 06-16-25 W 4.2, Food And Beverage Intern 4.26, CRP <.50, UC Neg 06-24-25 UM WBC 20 Follow up; 4 months Rosa Garber 05/20/2025 Cystitis (ICD-10 - N30.90) 01/30/2025 Acute kidney injury (ICD-10 - N17.9) 03/06/2025 Abscess of prostate (ICD-10 - N41.2) 1. 44 yo white male with a history of recurrent UTI's, T2DM, nephropathy, neuropathy, and cigarette smoker 2. Admission 02-07-25 with Prostatic abscess, and renal failure -discharged 02-24-25, then was admitted in [facility]. - Requested pt get discharge summary [...] on this treatment Labs 02-14-25 W 9.3, Food And Beverage Intern 6.31, CRP 9.79 02-23-25 W 7.6, Food And Beverage Intern 4.34, CRP 3.18 Follow up; 1 week labs and UC YAYO Garber 03/06/2025 Renal failure, unspecified chronicity (ICD-10 - N19) 1. 44 yo white male with a history of recurrent UTI's, T2DM, nephropathy, neuropathy, and cigarette smoker 2. Admission 02-07-25 with Prostatic abscess, and renal failure -discharged 02-24-25, then was admitted in [facility]. - Requested pt get discharge summary [...] on this treatment Labs 02-14-25 W 9.3, Food And Beverage Intern 6.31, CRP 9.79 02-23-25 W 7.6, Food And Beverage Intern 4.34, CRP 3.18 Follow up; 1 week labs and UC Rosa Garber 03/24/2025 Abscess of prostate (ICD-10 - N41.2) 1. 44 yo white male with a history of recurrent UTI's, T2DM, nephropathy, neuropathy, and cigarette smoker 2. Admission 02-07-25 with Prostatic abscess, and renal failure -discharged 02-24-25, then was admitted in [facility]. - Requested pt get discharge summary [...] on this treatment Labs 02-14-25 W 9.3, Food And Beverage Intern 6.31, CRP 9.79 02-23-25 W 7.6, Food And Beverage Intern 4.34, CRP 3.18 03-06-25; W 4.9, Food And Beverage Intern 4.18,, CRP 3.45, PSA .12, UM WBC U 378 03-24-25 W 5.0, Food And Beverage Intern 3.13, CRP .66 Follow up; PRN repeat labs Rosa Garber 04/01/2025 Urinary retention (ICD-10 - R33.9) 04/01/2025 Abscess of prostate (ICD-10 - N41.2) 06/16/2025 CKD (chronic kidney disease), stage IV [...] does not have a Gama catheter. 06/16/2025 Abscess of prostate (ICD-10 - N41.2) 1. 44 yo white male with a history of recurrent UTI's, T2DM, nephropathy, neuropathy, and cigarette smoker -02-07-25 with Prostatic abscess, and renal failure -no catheter now, no HD 2. Hospitalized in April 2025 for UTI at [facility] (elevated WBC, UC Neg at that time) -advised to get records from [place] -was treated with Cipro 3. Diagnostics; -CT [...] (R:amp, S: Fortaz, cipro) 03-06-25; W 4.9, Food And Beverage Intern 4.18,, CRP 3.45, PSA .12, UM WBC U 378 03-24-25 W 5.0, Food And Beverage Intern 3.13, CRP .66 Follow up; 2 weeks UC,UM,CBC,CRP, Comp Scribe Leonora Armentas 06/16/2025 Renal failure, unspecified chronicity (ICD-10 - N19) 1. 44 yo white male with a history of recurrent UTI's, T2DM, nephropathy, neuropathy, and cigarette smoker -02-07-25 with Prostatic abscess, and renal failure -no catheter now, no HD 2. Hospitalized in April 2025 for UTI at [facility] (elevated WBC, UC Neg at that time) -advised to get records from [place] -was treated with Cipro 3. Diagnostics; -CT [...] (R:amp, S: Fortaz, cipro) 03-06-25; W 4.9, Food And Beverage Intern 4.18,, CRP 3.45, PSA .12, UM WBC U 378 03-24-25 W 5.0, Food And Beverage Intern 3.13, CRP .66 Follow up; 2 weeks UC,UM,CBC,CRP, Comp Scribmonica Garber 06/24/2025 Chronic cystitis (ICD-10 - N30.20) 06/24/2025 Benign prostatic hyperplasia with lower urinary tract symptoms, symptom details unspecified (ICD-10 - N40.1) 06/16/2025 Type 2 diabetes with nephropathy (ICD-10 [...] currently does not have a Gama catheter. 03/13/2025 Abscess of prostate (ICD-10 - N41.2) 1. 44 yo white male with a history of recurrent UTI's, T2DM, nephropathy, neuropathy, and cigarette smoker 2. Admission 02-07-25 with Prostatic abscess, and renal failure -discharged 02-24-25, then was admitted in [facility]. - Requested pt get discharge summary [...] ofing of the prostatic abscess . 02-08-25 E. coli (R: amp, S: fortaz, cipro);02-07-25 [...] on this treatment Labs 02-14-25 W 9.3, Food And Beverage Intern 6.31, CRP 9.79 02-23-25 W 7.6, Food And Beverage Intern 4.34, CRP 3.18 03-06-25; W nurse executive. 4.18, CRP 3.45 Follow up; 1 week labs and UC Rosa Garber 01/27/2025 Other specified diabetes mellitus with hyperglycemia [...] a fingerstick blood glucose monitor or the [employer] Sulema 3 cgm daily. The Sulema 3 [...] reviewed. Verbal and written instructions given including [employer] Customer support contact information. Patient is able [...] Current use of insulin (ICD-10 - Z79.4) 01/21/2025 Iron deficiency anemia, unspecified iron deficiency anemia type (ICD-10 - D50.9) Proceed with diagnostic EGD and colonoscopy for iron deficiency anemia today. 06/24/2025 Benign prostatic hyperplasia without lower urinary tract symptoms (ICD-10 - N40.0) 05/13/2025 Benign prostatic hyperplasia with lower urinary tract symptoms, symptom details unspecified (ICD-10 - N40.1) 05/13/2025 Chronic UTI (ICD-10 - N39.0) 05/13/2025 Hypotonic bladder (ICD-10 - N31.2) 06/24/2025 Flank pain (ICD-10 - R10.9) 01/27/2025 Diabetes education, encounter for (ICD-10 - Z71.89) 03/13/2025 Renal failure, unspecified chronicity (ICD-10 - N19) 1. 44 yo white male with a history of recurrent UTI's, T2DM, nephropathy, neuropathy, and cigarette smoker 2. Admission 02-07-25 with Prostatic abscess, and renal failure -discharged 02-24-25, then was admitted in [facility]. - Requested pt get discharge summary [...] on this treatment Labs 02-14-25 W 9.3, Food And Beverage Intern 6.31, CRP 9.79 02-23-25 W 7.6, Food And Bever[employer] Intern 4.34, CRP 3.18 03-06-25; W nurse executive. 4.18, CRP 3.45 Follow up; 1 week labs and UC YAYO Garber 06/24/2025 Hypotonic bladder (ICD-10 - N31.2) 04/01/2025 Flank pain (ICD-10 - R10.9) 04/01/2025 Hematuria, unspecified type (ICD-10 - R31.9) 06/16/2025 Essential hypertension (ICD-10 - I10) Chronic [...] currently does not have a Gama catheter. 03/24/2025 Renal failure, unspecified chronicity (ICD-10 - N19) 1. 44 yo white male with a history of recurrent UTI's, T2DM, nephropathy, neuropathy, and cigarette smoker 2. Admission 02-07-25 with Prostatic abscess, and renal failure -discharged 02-24-25, then was admitted in [facility]. - Requested pt get discharge summary [...] (start date 03-24-25) . Pt notified to [place] Cipro on 03-25-25 @ 945am 7. Gastritis, Peptic ulcer disease, improved on Carafate and Protonix. - Pt doing better on this treatment Labs 02-14-25 W 9.3, Food And Beverage Intern 6.31, CRP 9.79 02-23-25 W 7.6, Food And Beverage Intern 4.34, CRP 3.18 03-06-25; W 4.9, Food And Beverage Intern 4.18,, CRP 3.45, PSA .12, UM WBC U 378 03-24-25 W 5.0, Food And Beverage Intern 3.13, CRP .66 Follow up; PRN repeat labs Rosa Leonora Shirlene 05/20/2025 Acute cystitis without hematuria (ICD-10 - N30.00) 05/06/2025 Hyperphosphatemia (ICD-10 - E83.39) 04/01/2025 Incomplete bladder emptying (ICD-10 - R33.9) 05/06/2025 Hyperparathyroidis m (ICD-10 - E21.3) 06/16/2025 Iron deficiency anemia, unspecified iron deficiency [...] does not have a Gama catheter. 01/27/2025 Uses self-applied continuous glucose monitoring device (ICD-10 - Z97.8) 06/24/2025 Hematuria (ICD-10 - R31.9) 05/06/2025 RENNY (acute kidney injury) (ICD-10 - N17.9) 01/27/2025 At risk for hypoglycemia (ICD-10 - Z91.89) 06/16/2025 Hyperphosphatemia (ICD-10 - E83.39) Chronic kidney [...] does not have a Gama catheter. 04/01/2025 Unspecified symptoms and signs involving the genitourinary system (ICD-10 - R39.9) 06/16/2025 Hyperparathyroidis m (ICD-10 - E21.3) Chronic [...] control. Try to obtainmore old labs from CT in [place]. Continue Jardiance. Monitor groin area for rashes. Keep groin area clean and dry. Renal dose medications for GFR less than 20 mL/min. Avoid nephrotoxins and NSAIDs. Stay well hydrated. Follow-up in [address] in [place]. Chronic kidney disease stage IV based on [...] Test Test Name Order Date Culture Urine 20903 06/16/2025 Basic Metabolic Panel (BMP) 17229 2024 CBC w\ Auto Diff 92436 06/16/2025 Comprehensive Metabolic Panel (CMP) 8005 3 06/16/2025 Magnesium (B) 22906 05/06/2025 Creatinine (U) 39057 05/06/2025 Microscopic Urine 63597 06/16/2025 CRP 66253 06/16/2025 Diagnostic Colonoscopy-94514 12/30/2024 EGD, Upper GI Diagnostic-70540 Future Test Test Name Order Date Basic Metabolic Panel (BMP) 51756 2024 Ferritin 19203 05/06/2025 Hemoglobin 13107 05/06/2025 Iron Binding Capacity Total 19658 2024 Iron Level 37586 05/06/2025 Phosphorus (B) 50908 05/06/2025 Protein (U) Random 15480 05/06/2025 Uric Acid (B) 85658 05/06/2025 Vitamin D Total (B) 80114 05/06/2025 UA Reflex Micro, Reflex Cult 05699, 8101 5, 18260 05/06/2025 PTH Intact 24862 05/06/2025 % Iron Saturation (Fe & TIBC)--31171,835 50 05/06/2025 Albumin 51033 09/09/2025 Basic Metabolic Panel (BMP) 92083 2024 Ferritin 06618 09/09/2025 Hemoglobin 41781 09/09/2025 Iron Binding Capacity Total 47780 2024 Iron Level 21522 09/09/2025 Magnesium (B) 14676 09/09/2025 Phosphorus (B) 37584 09/09/2025 Uric Acid (B) 77663 09/09/2025 Vitamin D Total (B) 45385 09/09/2025 Microalbumin (U) Random 07703 09/09/2025 Creatinine (U) 77877 09/09/2025 UA Reflex Micro, Reflex Cult 76311, 8101 5, 47143 09/09/2025 PTH Intact 64748 09/09/2025 % Iron Saturation (Fe & TIBC)--10940,835 50 09/09/2025 Next Appt Details Provider Name:Jameel Tony y, 09/23/2025 10:00:00 AM, [address], [address], [place], [address], Provider Name:Jess sandoval, 09/29/2025 10:20:00 AM, [address] [place] [address], [address], [place], [address], Provider Name:Saurabh Reyes y, 10/30/2025 01:00:00 PM, [address] [place] [address] Drive, [address], [place], [address], Provider Name:Chang García, 01/05/2026 09:40:00 AM, [address] [place] [address] , [address], [place], [address], Insurance Providers Payer Name Payer Address Payer Phone Subscriber Number Group Number Insured Name Patient Relationship to Insured Coverage Start Date Coverage End Date Web TPA Nguyen [address] [place] [address] [id number] Shanel Berry Self - patient is the insured [employer] [address] [place] [address] [id number] Shanel Berry Self - patient is the insured Medical (General) History Medical History History ICD Code Diabetes with DKA Chicken Pox anemia bladder infections blood transfusion Back Trouble High Blood Pressure kidney stones Anxiety UTI Surgical History Surgery Date(Month/Year) vasectomy TURP Prostate surgery Hospitalization History Reason Date(Month/Year) DKA 2024 ICU for UTI 2024
--- OUTSIDE RECORDS SUMMARY | 2025-08-13 04:53 | XMS_ITS | Clinical Summary ---
Author Organization [facility] Address [address] [place] [address] Phone Care Team Providers Care Roughener Name Role Phone Unavailable Primary Care Provider [...] Most Recently Relevant to Health Maintenance Insurance [facility] [address] [place] [id number] RX [employer] Member Subscriber Plan / Payer (Ef fective for All Dates) Name:Elizabeth Martinezd Relation to Subscriber:Self Name:Robert Martinez Subscriber ID:Not on file Payer ID:Not on file Group ID:[id number] Type:RX Commercial Address: [place] * Guarantor: [facility] J (C) Account Type Relation to Patient Date of Phone Billing Address Corporate Other DEFAULT ADDRESS [address] [employer] Advance Directives For more information, please contact: [phone] * Full Code (Latest Code Status on File) Date Activated Date Inactivated Comments 02/27/2025 11:34 PM 03/05/2025 4:34 PM
[2025-08-13 04:54] VITALS: BP 170/122; PULSE 106; TEMP 36.5; O2SAT 100; BMI 27.2
[2025-08-13 05:09] VITALS: BP 173/98; PULSE 90; O2SAT 99
--- NOTE | 2025-08-13 05:38 | W.ED.MALEGU ---
HPI - Male Genitourinary General: Chief complaint: Urogenital-Male Stated complaint: Possible UTI\Pain Time Seen by Provider: 08/13/25 05:25 Related Data Home Medications ?Medication ?Instructions ?Recorded ?Confirmed glucagon 1 mg/0.2 mL subcutaneous 1 mg SUBCUT PRN PRN low blood sugar 02/19/25 07/17/25 syringe (Safety Hound PFS 2-Pack) insulin aspart U-100 100 unit/mL See Rx Instructions .Route .COMPLEX 02/19/25 07/17/25 (3 mL) subcutaneous pen insulin glargine 100 unit/mL (3 22 unit SUBCUT DAILY 02/19/25 07/17/25 mL) subcutaneous pen (Lantus Solostar U-100 Insulin) metformin 500 mg tablet 500 mg PO BID 02/19/25 07/17/25 metoclopramide HCl 5 mg tablet 5 mg PO TID PRN Nausea And Vomiting 02/19/25 07/17/25 pantoprazole 40 mg tablet,delayed 40 mg PO QAM 02/19/25 07/17/25 release ferrous gluconate 324 mg (38 mg 324 mg PO BID 03/31/25 07/17/25 iron) tablet ondansetron HCl 8 mg tablet 8 mg PO Q8H PRN Nausea And Vomiting 03/31/25 07/17/25 sucralfate 1 gram tablet 1 g PO BID 03/31/25 07/17/25 ciprofloxacin HCl 500 mg tablet 500 mg PO .3XWEEKLY 07/03/25 07/17/25 Held on 07/03/25. Instructions: Resume on 07/14/25. Hold x 10 days rosuvastatin 10 mg tablet 10 mg PO DAILY 07/03/25 07/17/25 Previous Rx's ?Medication ?Instructions ?Recorded prochlorperazine maleate 10 mg 10 mg PO Q8H PRN nausea and 02/19/25 tablet (Compazine) vomiting #20 tabs oxycodone-acetaminophen 5 mg-325 1 tab PO Q8H PRN pain #10 tabs 06/04/25 mg tablet (Percocet) hydrocodone 5 mg-acetaminophen 325 1 tab PO Q6H PRN pain #15 tabs 07/03/25 mg tablet methylprednisolone 4 mg tablets in See Rx Instructions PO .COMPLEX 07/10/25 a dose pack (Medrol (Nathaniel)) #21 ea tizanidine 4 mg tablet 4 mg PO Q6H PRN muscle spasticity 07/10/25 #20 tabs cefdinir 300 mg capsule 300 mg PO BID 10 days #20 caps 08/12/25 ondansetron 8 mg disintegrating 8 mg PO Q6H #14 tabs 08/12/25 tablet tramadol 50 mg tablet 50 mg PO Q8H PRN pain #20 tabs 08/12/25 Allergies Allergy/AdvReac Type Severity Reaction Status Date / Time No Known Allergies Allergy Verified 08/12/25 16:51 PFSH ED PFSH: Social History Smoking and tobacco/nicotine status: current some day tobacco/nicotine user (vape) Alcohol intake: never Course Vital Signs: Vital signs: Vital Signs Temperature 97.7 F 08/13/25 04:54 Pulse Rate 90 08/13/25 05:09 Blood Pressure 173/98 08/13/25 05:09 Pulse Oximetry 99 08/13/25 05:09 Oxygen Delivery Me thod Room Air 08/13/25 05:09 Discharge Plan Discharge Condition: Stable Prescriptions: No Action ondansetron HCl 8 mg tablet 8 mg PO Q8H PRN (Reason: Nausea And Vomiting) sucralfate 1 gram tablet 1 g PO BID ferrous gluconate 324 mg (38 mg iron) tablet 324 mg PO BID metformin 500 mg tablet 500 mg PO BID metoclopramide HCl 5 mg tablet 5 mg PO TID PRN (Reason: Nausea And Vomiting) pantoprazole 40 mg tablet,delayed release (DR/EC) 40 mg PO QAM insulin aspart U-100 100 unit/mL (3 mL) insulin pen See Rx Instructions .ROUTE .COMPLEX Rx Instructions: Inject subcutaneously per sliding scale 3 times daily before meals. insulin glargine [Lantus Solostar U-100 Insulin] 100 unit/mL (3 mL) insulin pen 22 unit SUBCUT DAILY Gvoke PFS 2-Pack Syringe 1 mg/0.2 mL syringe 1 mg SUBCUT PRN PRN (Reason: low blood sugar) prochlorperazine maleate [Compazine] 10 mg tablet 10 mg PO Q8H PRN (Reason: nausea and vomiting) Qty: 20 0RF oxycodone-acetaminophen [Percocet] 5-325 mg tablet 1 tab PO Q8H PRN (Reason: pain) Qty: 10 0RF ciprofloxacin HCl 500 mg tablet 500 mg PO .3XWEEKLY rosuvastatin 10 mg Tablet 10 mg PO DAILY hydrocodone-acetaminophen 5-325 mg tablet 1 tab PO Q6H PRN (Reason: pain) Qty: 15 0RF tizanidine 4 mg tablet 4 mg PO Q6H PRN (Reason: muscle spasticity) Qty: 20 0RF Rx Instructions: do not exceed 3 doses per 24 hrs methylprednisolone [Medrol (Nathaniel)] 4 mg tablets,dose pack See Rx Instructions .ROUTE .COMPLEX Qty: 21 0RF Rx Instructions: orally per package directions tramadol 50 mg tablet 50 mg PO Q8H PRN (Reason: pain) Qty: 20 0RF ondansetron 8 mg tablet,disintegrating 8 mg PO Q6H Qty: 14 0RF Rx Instructions: Take 1/2-1 tab every 6 hours as needed for nausea and vomiting cefdinir 300 mg capsule 300 mg PO BID 10 Days Qty: 20 0RF Referrals: Sil House MD [Primary Care Provider, Family Practice] Print Language: Hungarian Coding Level of Care Code ED [employer] Gasfitter for Jasvir Ramos
--- NOTE | 2025-08-13 06:50 | W.ED.MALEGU ---
HPI - Male Genitourinary General: Chief complaint: Urogenital-Male Stated complaint: Possible UTI\Pain Time Seen by Provider: 08/13/25 05:25 History of Present Illness: 44-year-old male history of CKD, insulin-dependent diabetes, hyperlipidemia, presenting to the emergency department with onset since yesterday of left-sided flank pain with mild blood in the urine. Seen in the ER last night with a workup including blood work urinalysis and a noncontrast CT of the abdomen that showed a exophytic relatively small left renal cyst, CKD that was roughly at baseline, no severe anemia, urinalysis with evidence of inflammation but no visible bacteria culture pending, CT scan did show inflammation of the urinary bladder and bilateral renal regions, patient was prescribed an antibiotic which she has not yet filled because the pharmacy was closed but came into the ER this morning for recurrent paroxysms of left flank pain. Currently reports his pain is mild in nature but was more severe prior to arrival to the ER, he is able to urinate, he denies fever Related Data Home Medications ?Medication ?Instructions ?Recorded ?Confirmed glucagon 1 mg/0.2 mL subcutaneous 1 mg SUBCUT PRN PRN low blood sugar 02/19/25 07/17/25 syringe ([employer] PFS 2-Pack) insulin aspart U-100 100 unit/mL See Rx Instructions .Route .COMPLEX 02/19/25 07/17/25 (3 mL) subcutaneous pen insulin glargine 100 unit/mL (3 22 unit SUBCUT DAILY 02/19/25 07/17/25 mL) subcutaneous pen (Lantus Solostar U-100 Insulin) metformin 500 mg tablet 500 mg PO BID 02/19/25 07/17/25 metoclopramide HCl 5 mg tablet 5 mg PO TID PRN Nausea And Vomiting 02/19/25 07/17/25 pantoprazole 40 mg tablet,delayed 40 mg PO QAM 02/19/25 07/17/25 release ferrous gluconate 324 mg (38 mg 324 mg PO BID 03/31/25 07/17/25 iron) tablet ondansetron HCl 8 mg tablet 8 mg PO Q8H PRN Nausea And Vomiting 03/31/25 07/17/25 sucralfate 1 gram tablet 1 g PO BID 03/31/25 07/17/25 ciprofloxacin HCl 500 mg tablet 500 mg PO .3XWEEKLY 07/03/25 07/17/25 Held on 07/03/25. Instructions: Resume on 07/14/25. Hold x 10 days rosuvastatin 10 mg tablet 10 mg PO DAILY 07/03/25 07/17/25 Previous Rx's ?Medication ?Instructions ?Recorded prochlorperazine maleate 10 mg 10 mg PO Q8H PRN nausea and 02/19/25 tablet (Compazine) vomiting #20 tabs oxycodone-acetaminophen 5 mg-325 1 tab PO Q8H PRN pain #10 tabs 06/04/25 mg tablet (Percocet) hydrocodone 5 mg-acetaminophen 325 1 tab PO Q6H PRN pain #15 tabs 07/03/25 mg tablet methylprednisolone 4 mg tablets in See Rx Instructions PO .COMPLEX 07/10/25 a dose pack (Medrol (Nathaniel)) #21 ea tizanidine 4 mg tablet 4 mg PO Q6H PRN muscle spasticity 07/10/25 #20 tabs cefdinir 300 mg capsule 300 mg PO BID 10 days #20 caps 08/12/25 ondansetron 8 mg disintegrating 8 mg PO Q6H #14 tabs 08/12/25 tablet tramadol 50 mg tablet 50 mg PO Q8H PRN pain #20 tabs 08/12/25 Allergies Allergy/AdvReac Type Severity Reaction Status Date / Time No Known Allergies Allergy Verified 08/12/25 16:51 [facility] ED PFSH: Social History Smoking and tobacco/nicotine status: current some day tobacco/nicotine user (vape) Alcohol intake: never Physical Exam Narrative: EXAM NARRATIVE: Gen: A&Ox4, no acute distress, nontoxic appearing HEENT: Normocephalic, atraumatic, no scleral icterus, external ears normal, moist mucous membranes Neck: Supple, full range of motion, no observable masses Lungs: No Respiratory distress, Lungs clear to auscultation bilaterally no rales, rhonchi, wheezing CV: Regular rate and rhythm, no murmur, no pitting edema to lower extremities bilaterally Abdomen: Soft, nondistended, nontender to palpation, positive left-sided CVA tenderness with no overlying skin changes warmth swelling or redness MSK: No joint swelling, FROM all 4 extremities Skin: No rashes, petechiae, lesions. Normal color per patient. Neuro: Alert and oriented, no slurred speech, sensation and strength grossly intact all 4 extremities Psych: Appropriate for situation. Course Vital Signs: Vital signs: Vital Signs Temperature 97.7 F 08/13/25 04:54 Pulse Rate 90 08/13/25 05:09 Blood Pressure 173/98 08/13/25 05:09 Pulse Oximetry 99 08/13/25 05:09 Oxygen Delivery Me thod Room Air 08/13/25 05:09 MDM - Male Medical Decision Making 44-year-old male history of significant CKD creatinine in the upper 4 range at baseline presenting the emergency department with left-sided flank pain and hematuria, acute onset since yesterday, CT yesterday with blood work and urinalysis showing no stone but did show inflammation as well as positive leuk esterase in the urine without visible bacteria, creatinine was at baseline, left renal cyst was noted incidentally, at this time differential would favor pain secondary to cyst versus pyelonephritis, less likely kidney stone, no evidence of acute renal failure, prevoid bladder scan in the ER showing 400 cc but patient was able to void easily after that without passage of clots and postvoid residual less than 150 cc on my independent ultrasound, no evidence for Gama catheter placement, stable for discharge with pain control initiation of the previously prescribed antibiotics, follow-up with nephrology. Return precautions for fever, inability to urinate, decreased urine output, worsening pain. No radiology studies performed this visit Discharge Plan Discharge Patient Disposition: Home Clinical Impression: Cyst of left kidney Urinary tract infection Qualifiers: Urinary tract infection type: acute pyelonephritis Qualified Code(s): N10 - Acute pyelonephritis Chronic kidney insufficiency Qualifiers: Chronic kidney disease stage: stage 5 (GFR < 15) Qualified Code(s): N28.89 - Other specified disorders of kidney and ureter Condition: Stable Prescriptions: No Action ondansetron HCl 8 mg tablet 8 mg PO Q8H PRN (Reason: Nausea And Vomiting) sucralfate 1 gram tablet 1 g PO BID ferrous gluconate 324 mg (38 mg iron) tablet 324 mg PO BID metformin 500 mg tablet 500 mg PO BID metoclopramide HCl 5 mg tablet 5 mg PO TID PRN (Reason: Nausea And Vomiting) pantoprazole 40 mg tablet,delayed release (DR/EC) 40 mg PO QAM insulin aspart U-100 100 unit/mL (3 mL) insulin pen See Rx Instructions .ROUTE .COMPLEX Rx Instructions: Inject subcutaneously per sliding scale 3 times daily before meals. insulin glargine [Lantus Solostar U-100 Insulin] 100 unit/mL (3 mL) insulin pen 22 unit SUBCUT DAILY [employer] PFS 2-Pack Syringe 1 mg/0.2 mL syringe 1 mg SUBCUT PRN PRN (Reason: low blood sugar) prochlorperazine maleate [Compazine] 10 mg tablet 10 mg PO Q8H PRN (Reason: nausea and vomiting) Qty: 20 0RF oxycodone-acetaminophen [Percocet] 5-325 mg tablet 1 tab PO Q8H PRN (Reason: pain) Qty: 10 0RF ciprofloxacin HCl 500 mg tablet 500 mg PO .3XWEEKLY rosuvastatin 10 mg Tablet 10 mg PO DAILY hydrocodone-acetaminophen 5-325 mg tablet 1 tab PO Q6H PRN (Reason: pain) Qty: 15 0RF tizanidine 4 mg tablet 4 mg PO Q6H PRN (Reason: muscle spasticity) Qty: 20 0RF Rx Instructions: do not exceed 3 doses per 24 hrs methylprednisolone [Medrol (Nathaniel)] 4 mg tablets,dose pack See Rx Instructions .ROUTE .COMPLEX Qty: 21 0RF Rx Instructions: orally per package directions tramadol 50 mg tablet 50 mg PO Q8H PRN (Reason: pain) Qty: 20 0RF ondansetron 8 mg tablet,disintegrating 8 mg PO Q6H Qty: 14 0RF Rx Instructions: Take 1/2-1 tab every 6 hours as needed for nausea and vomiting cefdinir 300 mg capsule 300 mg PO BID 10 Days Qty: 20 0RF Discharge Orders: Discharge ED (Routine); Ordered 08/13/25 Ordered By: Bronson Zarate Referrals: Sil House MD [Primary Care Provider, Family Practice] Patient Instructions: Pain Management, Patient Portal & Meka Instructions, Pyelonephritis, Kidney Cyst (ED) Print Language: Swedish Coding Level of Care Code ED Fitness Assistant for Jasvir Ramos
--- NOTE | 2025-08-13 07:02 | PC.NURSE ---
THIS NURSE ASSUMED CARE @ 0889.
[2025-08-13] MEDS: oxyCODONE-APAP 5-325 mg Tablet 2 TAB PO (07:48)
== END 2025-08-13 07:49 | disposition home or self-care (01) ==
PROVIDERS: Emergency Provider Student in an Organized Health Care Education/Training Program; PCP Family Medicine
DX: N10 Acute pyelonephritis (principal); N28.1 Cyst of kidney, acquired; Z79.4 Long term (current) use of insulin; E11.22 Type 2 diabetes mellitus with diabetic chronic kidney disease; N18.5 Chronic kidney disease, stage 5; E78.5 Hyperlipidemia, unspecified
CPT/HCPCS: 51798; 99283; J9999

== ENCOUNTER 2025-09-17 09:01 | Inpatient (IN) | payer OTHER, SELFPAY ==
[2025-09-17] VITALS (11 sets, daily range): BP systolic 136–210; BP diastolic 84–109; PULSE 81–105; RESP 16–17; TEMP 36.6; O2SAT 97–100; BMI 28.7
--- NOTE | 2025-09-17 09:42 | W.ED.MALEGU ---
HPI - Male Genitourinary General: Chief complaint: Urogenital-Male Stated complaint: lower back pain Time Seen by Provider: 09/17/25 09:27 History of Present Illness: 45-year-old male presents emergency room complaining of sudden onset of left-sided flank pain that began this morning. He has had a history of kidney stones in the past. He has chronic kidney disease as well he was seen in July of this year had some back pain prior to that he had an episode of pyelonephritis he had another episode of urinary tract infections in early August. He has not had any fever sweats or chills. He was seen in July. Hematuria and was referred to urology. Associated symptoms: Deny dysuria Related Data Home Medications ?Medication ?Instructions ?Recorded ?Confirmed insulin aspart U-100 100 unit/mL 10 unit SUBCUT TID 02/19/25 09/17/25 (3 mL) subcutaneous pen insulin glargine 100 unit/mL (3 20 unit SUBCUT DAILY 02/19/25 09/17/25 mL) subcutaneous pen (Lantus Solostar U-100 Insulin) pantoprazole 40 mg tablet,delayed 40 mg PO QAM 02/19/25 09/17/25 release ferrous gluconate 324 mg (38 mg 324 mg PO BID 03/31/25 09/17/25 iron) tablet rosuvastatin 10 mg tablet 10 mg PO QPM 07/03/25 09/17/25 empagliflozin 25 mg tablet 12.5 mg PO QAM 09/17/25 09/17/25 (Jardiance) nicotine (polacrilex) 2 mg buccal 2 mg buccal Q4H PRN tobacco 09/17/25 09/17/25 lozenge cessation. ondansetron 8 mg disintegrating 4 - 8 mg PO Q6H PRN Nausea And 09/17/25 09/17/25 tablet Vomiting Previous Rx's ?Medication ?Instructions ?Recorded hydrocodone 5 mg-acetaminophen 325 1 tab PO Q6H PRN pain #15 tabs 07/03/25 mg tablet tizanidine 4 mg tablet 4 mg PO Q6H PRN muscle spasticity 07/10/25 #20 tabs tramadol 50 mg tablet 50 mg PO Q8H PRN pain #20 tabs 08/12/25 amlodipine 10 mg tablet 10 mg PO DAILY #90 tabs 09/18/25 cefdinir 300 mg capsule 300 mg PO BID 7 days #14 caps 09/18/25 Allergies Allergy/AdvReac Type Severity Reaction Status Date / Time No Known Allergies Allergy Verified 08/12/25 16:51 Review of Systems Const: Denies: fever(s) or chills Card: Denies: chest pain Resp: Denies: dyspnea GI: Denies: abdominal pain : Denies: dysuria, urinary frequency or urinary urgency Musc: Denies: neck pain or back pain Skin/Breast: Denies: rash PFSH ED PFSH: Social History Smoking and tobacco/nicotine status: current some day tobacco/nicotine user (vape) Alcohol intake: never Physical Exam Const: COMMON NORMALS: no acute distress GENERAL APPEARANCE: cooperative and comfortable ORIENTATION/CONSCIOUSNESS: Yes awake, Yes oriented to person, Yes oriented to place and Yes oriented to time HENMT: COMMON NORMALS: normocephalic, atraumatic and hearing grossly normal bilaterally HEAD & SCALP: normocephalic and atraumatic Resp: COMMON NORMALS: normal respiratory effort, No retractions, No use of accessory muscles and clear to auscultation bilaterally AUSCULTATION: clear to auscultation bilaterally Cardio: COMMON NORMALS: regular rate, regular rhythm and No murmurs present (Cardio) RATE: regular rate RHYTHM: regular rhythm GI: COMMON NORMALS: Soft to palpation and No hepatosplenomegaly present AUSCULTATION: Yes normoactive bowel sounds PALPATION: Yes Soft to palpation, No Tenderness to palpation present (GI), No Guarding due to palpation present (GI) and Yes No hepatosplenomegaly present Extremity: COMMON NORMALS: normal to inspection, capillary refill normal, no clubbing, cyanosis or edema, no calf tenderness and no pedal edema Neuro: SENSORIUM/ORIENTATION: Yes oriented to person, Yes oriented to place and Yes oriented to time Skin: COMMON NORMALS: no rashes or lesions noted GENERAL SKIN EXAM: no rashes or lesions noted Course Vital Signs: Vital signs: Vital Signs Temperature 98.2 F 09/18/25 07:37 Pulse Rate 87 09/18/25 11:20 Respiratory Rate 18 09/18/25 11:20 Blood Pressure 149/101 09/18/25 11:20 Pulse Oximetry 95 09/18/25 11:20 Oxygen Delivery Me thod Room Air 09/18/25 11:15 MDM - Male Medical Decision Making Medical decision making Social determinants: None I reviewed the patient's medical record. I reviewed the patient's current home meds. Alternate historians: None Differential diagnosis: Cystitis pyelonephritis elevated blood pressure Lab Review: Labs reviewed as found in the chart mild anemia which is chronic slightly improved from before with a hemoglobin of 10.4 white count normal. Potassium at 5.2 creatinine of 4.8 he does have chronic kidney disease the 4 point is at 8 is slightly better than previous evaluations liver functions are normal UA shows 50-100 red blood cells 21-50 white blood cells 2+ leukocyte esterase negative nitrite Imaging: CT abdomen pelvis for renal stone some stranding the left kidney with mild left hydro nephrosis no obstruction. Radiology suspected pyelonephritis. No sign of stone. Incidental finding of fat-containing left inguinal hernia Assessment of risk Level of risk: Moderate to high Hospitalization considerations: Hospitalization for pyelonephritis and accelerated hypertension Reexamination: Flank pain is slightly improved. Assessment and plan: Patient developed escalating blood pressure jason here did not respond to initial push dose medication ultimately started on a nicardipine drip he is also given Rocephin. Will admit continue Rocephin nicardipine started blood pressure controlled. Discussed with hospitalist orders written. Given the patient's UA findings it is possible he recently passed a stone which would correlate with his reported symptoms however there is no definitive finding of that at this time. Lab Data 09/18/25 10:50 09/18/25 08:25 Radiology Impressions Abdomen/Pelvis CT 09/17/25 09:50 IMPRESSION: 1. Moderate perinephric stranding surrounding the LEFT kidney with mild LEFT hydroureteronephrosis. No distal obstructing ureteral calcification is identified. There may be a non-radiopaque stone or recently passed stone causing the obstruction. 2. Bilateral perinephric stranding is more pronounced than on 08/12/2025. Suggesting superimposed urinary tract infection. 3. No free fluid. 4. Normal appendix. Laboratory Results WBC 4.80 10^3/uL (3.29-11.43) 09/17/25 09:35 RBC 3.57 10^6/uL (3.85-5.65) L 09/17/25 09:35 Hgb 10.40 g/dL (11.27-16.99) L 09/17/25 09:35 Hct 29.6 % (37-53) L 09/17/25 09:35 MCV 82.9 fl (82-101) 09/17/25 09:35 MCH 29.1 pg (27-33) 09/17/25 09:35 MCHC 35.1 g/dL (30-55) 09/17/25 09:35 RDW 12.9 % (12.1-15.1) 09/17/25 09:35 Plt Count 140 10^3/cmm (157-399) L 09/17/25 09:35 MPV 10.8 fL (7.4-10.4) H 09/17/25 09:35 Neut % (Auto) 58.1 % 09/17/25 09:35 Lymph % (Auto) 31.3 % 09/17/25 09:35 [place] % (Auto) 6.5 % 09/17/25 09:35 Eos % (Auto) 3.3 % 09/17/25 09:35 Baso % (Auto) 0.4 % 09/17/25 09:35 Neut # (Auto) 2.79 10^3/uL (1.8-7.7) 09/17/25 09:35 Lymph # (Auto) 1.5 10^3/uL (0.8-4.8) 09/17/25 09:35 [place] # (Auto) 0.3 10^3/uL (0.2-0.9) 09/17/25 09:35 Eos # (Auto) 0.2 10^3/uL (0.0-0.8) 09/17/25 09:35 Baso # (Auto) 0.0 10^3/uL (0.0-0.1) 09/17/25 09:35 Nucleated RBC % (auto) 0 % 09/17/25 09:35 Nucleated RBCs # 0.0 /100WBC 09/17/25 09:35 Sodium 139 mmol/L (136-145) 09/17/25 09:35 Potassium 5.2 mmol/L (3.5-5.1) H 09/17/25 09:35 Chloride 108 mmol/L (98-107) H 09/17/25 09:35 Carbon Dioxide 19 mmol/L (22-29) L 09/17/25 09:35 Anion Gap 17.2 (5-19) 09/17/25 09:35 BUN 58 mg/dL (6-20) H 09/17/25 09:35 Creatinine 3.9 mg/dL (0.7-1.2) H 09/17/25 09:35 GFR Calculation 16.9 mL/min (90-130) L 09/17/25 09:35 Glucose 183 mg/dL (65-115) H 09/17/25 09:35 Calculated Osmolality 309 mOsm/kg (285-295) H 09/17/25 09:35 Calcium 8.9 mg/dL (8.5-10.5) 09/17/25 09:35 Total Bilirubin 0.3 mg/dL (0.15-1.2) 09/17/25 09:35 AST 22 U/L (0-40) 09/17/25 09:35 ALT 38 U/L (0-41) 09/17/25 09:35 Alkaline Phosphatase 101 U/L (40-130) 09/17/25 09:35 Total Protein 7.5 g/dL (6.6-8.7) 09/17/25 09:35 Albumin 4.6 g/dL (3.5-5.2) 09/17/25 09:35 Globulin 2.9 g/dL (1.3-4.6) 09/17/25 09:35 Urine Color Yellow (Yellow) 09/17/25 09:38 Urine Appearance Clear (CLEAR) 09/17/25 09:38 Urine pH 5.5 (5-7) 09/17/25 09:38 Ur Specific Rosamond 1.010 (1.005-1.030) 09/17/25 09:38 Urine Protein Trace (Negative) A 09/17/25 09:38 Urine Glucose (UA) Negative (Normal) 09/17/25:38 Urine Ketones Negative (Negative) 09/17/25 09:38 Urine Blood 2+ (Negative) A 09/17/25:38 Urine Nitrate Negative (Negative) 09/17/25 09:38 Urine Bilirubin Negative (Negative) 09/17/25 09:38 Urine Urobilinogen 0.2 mg/dL (Negative) 09/17/25 09:38 Ur Leukocyte Esterase 1+ (Negative) A 09/17/25 09:38 Urine RBC 6-10 /hpf (0-2) 09/17/25 09:38 Urine WBC 11-20 /hpf (0-5) H 09/17/25 09:38 Ur Squamous Epith Cells 0-5 /hpf (0-5) 12 09:38 Amorphous Sediment Not Reportable 09/17/25 09:38 Urine Bacteria None seen /hpf (NONE) 09/17/25 09:38 Hyaline Casts 0-4 /lpf H 09/17/25 09:38 All radiology interpretation(s) finalized by discharge Discharge Plan Discharge Patient Disposition: Admitted As Inpatient Admit Provider: Ramón Cooley Clinical Impression: Hypertensive urgency, Anemia, Chronic kidney disease (CKD), Pyelonephritis Condition: Stable Discharge Diet: As Directed Coding Level of Care Code ED Barkeep for Jasvir Ramos
--- NOTE | 2025-09-17 09:47 | ECG_ITS ---
[facility] Date: 2025-09-17 Pat Name: Robert Martinez Department: Room: Gender: Male Barrel Tester: : 1980 Requested By: Odilon Garibay Order Number: [id number] MD: Myles Decker M.D. Measurements Intervals [place] Rate: 80 P: 44 CA: 159 QRS: 14 QRSD: 102 T: 80 QT: 369 QTc: 428 Interpretive Statements SINUS RHYTHM POSSIBLE RIGHT VENTRICULAR CONDUCTION DELAY [RSR (QR) IN V1/V2] NONSPECIFIC T-WAVE ABNORMALITY Compared to ECG 04/27/2025 21:03:16 Sinus tachycardia no longer present Incomplete right bundle-branch block no longer present T-wave abnormality still present Electronically Signed On 09-18-2025 17:30:02 PIPE OUT WORKER by Myles Decker M.D. [email or web address]
--- NOTE | 2025-09-17 09:50 | CT_ITS ---
WS: [id number] CT ABDOMEN AND PELVIS NONCONTRAST HISTORY: flank pain, LEFT side. TECHNIQUE: Imaging performed through the abdomen and pelvis. Coronal and sagittal reformats are submitted. All CT scans at [facility] use at least one of these dose optimization techniques: automated exposure control; mA and/or kV adjustment per patient size (includes targeted exams where dose is matched to clinical indication); or iterative reconstruction. DLP: 726.83 mGy.cm COMPARISON: 08/12/2025 Lower thorax: Lung bases are clear. Visualized heart is normal. Small hiatal hernia. Liver: Normal size liver. No mass or bile duct dilatation. Gallbladder: Normal gallbladder. No pericholecystic fluid or cholelithiasis. No gallbladder wall thickening. Pancreas: Normal size and attenuation. Normal pancreatic duct. No pancreatitis or mass. Spleen: Normal. Adrenal glands: Normal. No mass. Right kidney: Moderate perinephric stranding has progressed since the prior study. No renal obstruction or calcification. Left kidney: Moderate perinephric stranding has progressed since the prior study. Kidney is slightly enlarged. Mild dilatation of the LEFT renal pelvis and ureter. The LEFT ureter is dilated to the urinary bladder. No obstructing stone is identified in the distal LEFT ureter. 1.4 cm LEFT renal cyst. Aorta: Mild atherosclerosis abdominal aorta with no aneurysm. Small retroperitoneal lymph nodes. No pathologically enlarged lymph nodes. No free fluid. GI tract: Normal noncontrast imaging of the stomach, small bowel and colon. No obstruction or wall thickening. Normal appendix. Abdominal wall: Small umbilical hernia contains fat only. Pelvis: Urinary bladder is not distended. There is mild bladder wall thickening which is probably due to the under distention. No stones identified in the urinary bladder. Fat-containing patent LEFT inguinal canal. Osseous structures: Unremarkable. CT/CT kidney stone [id number] IMPRESSION: 1. Moderate perinephric stranding surrounding the LEFT kidney with mild LEFT h ydroureteronephrosis. No distal obstructing ureteral calcification is identifie d. There may be a non-radiopaque stone or recently passed stone causing the obs truction. 2. Bilateral perinephric stranding is more pronounced than on 08/12/2025. Sugge sting superimposed urinary tract infection. 3. No free fluid. 4. Normal appendix.
--- NOTE | 2025-09-17 09:53 | PC.PHAR ---
[facility] 09/17/25 9:51am
[2025-09-17] MEDS: morphine 4 mg/mL SDV 1 mL IVP ×3 (09:57→12:55)
[2025-09-17] MEDS: ondansetron 2 mg/ML SDV 2 mL 4 MG IVP ×2 (09:57→12:00)
[2025-09-17 09:59] LABS: Hematocrit 29.6 % (37-53); Hemoglobin 10.40 g/dL (11.27-16.99); Mean Corpuscular HGB Conc 35.1 g/dL (30-55); Mean Corpuscular Hemoglobin 29.1 pg (27-33); Mean Corpuscular Volume 82.9 fl (82-101); Nucleated Red Blood Cells % 0 %; Platelet Count 140 10^3/cmm (157-399); Red Blood Count 3.57 10^6/uL (3.85-5.65); White Blood Count 4.80 10^3/uL (3.29-11.43)
[2025-09-17 10:03] LABS: Glucose Urine UA Negative (Normal); Nitrate Urine Negative (Negative); Specific Gravity, Urine 1.010 (1.005-1.030)
[2025-09-17 10:09] LABS: Add Urine Microscopic? YES
[2025-09-17 10:22] LABS: Alanine Aminotransferase 38 U/L (0-41); Albumin Level 4.6 g/dL (3.5-5.2); Alkaline Phosphatase 101 U/L (40-130); Anion Gap 17.2 (5-19); Aspartate Amino Transferase 22 U/L (0-40); Blood Urea Nitrogen 58 mg/dL (6-20); Calcium 8.9 mg/dL (8.5-10.5); Carbon Dioxide 19 mmol/L (22-29); Chloride 108 mmol/L (98-107); Globulin 2.9 g/dL (1.3-4.6); Glucose 183 mg/dL (65-115); Osmolality Calculated 309 mOsm/kg (285-295); Potassium 5.2 mmol/L (3.5-5.1); Sodium 139 mmol/L (136-145); Total Protein 7.5 g/dL (6.6-8.7)
[2025-09-17] MEDS: cefTRIAXone 1,000 mg SDV 1000 MG IVP (11:53)
[2025-09-17] MEDS: labetalol 5 mg/mL SDV 20mL 10 MG IVP (12:00)
[2025-09-17] MEDS: hyDRALAzine 20 mg/mL INJ 1 mL 10 MG IVP (12:00)
[2025-09-17] MEDS: nicardipine 20 MG/200 ML PREMIX 50 MG IV (13:29)
--- NOTE | 2025-09-17 13:53 | PC.PHAR ---
Pt states he took some medications this morning that he should have taken last night but does not know what he actually took. Med list from [place] is quite different than last time it was reconciled.
--- NOTE | 2025-09-17 16:28 | PM.HP ---
Providers/Chief Complaint Primary Care Provider: Sil House MD Chief Complaint: lower back pain History of Present Illness Robert Martinez is a 45 year old male with pmh of dm,htn presents with complaints of flank and back pain. Patient reports that he has history of kidney stones. Reports that he also had cyst in his prostate. He does follow with urology at outside hospital. In the ER he had imaging done. Concern for pyelonephritis. He also reports having previous UTIs. He states that he think these are related to his previous prostate surgery. He does report feeling feverish although no documented fever. He denies any nausea or vomiting chest pain cough or diarrhea, in the ER patient was noted to have elevated blood pressure. He was placed on a drip Review of Systems General: Reports: 10 or more systems reviewed and unremarkable except in HPI and below Const: Reports: fever(s) and body aches Eyes: Denies: change in vision or blurry vision ENMT: Denies: throat pain or uvular edema Card: Denies: chest pain or palpitations GI: Denies: abdominal pain or nausea Musc: Reports: back pain Neuro: Denies: headache(s) or numbness in extremities Medications/Allergies Home Medications ?Medication ?Instructions ?Recorded ?Confirmed ?Last Taken ?Type insulin aspart U-100 100 unit/mL 10 unit SUBCUT TID 02/19/25 09/17/25 02/17/25 History (3 mL) subcutaneous pen insulin glargine 100 unit/mL (3 20 unit SUBCUT DAILY 02/19/25 09/17/25 07/03/25 History mL) subcutaneous pen (Lantus Solostar U-100 Insulin) pantoprazole 40 mg tablet,delayed 40 mg PO QAM 02/19/25 09/17/25 07/03/25 History release ferrous gluconate 324 mg (38 mg 324 mg PO BID 03/31/25 09/17/25 07/03/25 History iron) tablet hydrocodone 5 mg-acetaminophen 325 1 tab PO Q6H PRN pain #15 tabs 07/03/25 09/17/25 Unknown Rx mg tablet rosuvastatin 10 mg tablet 10 mg PO QPM 07/03/25 09/17/25 07/02/25 History tizanidine 4 mg tablet 4 mg PO Q6H PRN muscle spasticity 07/10/25 09/17/25 Unknown Rx #20 tabs tramadol 50 mg tablet 50 mg PO Q8H PRN pain #20 tabs 08/12/25 09/17/25 Unknown Rx captopril 12.5 mg tablet 12.5 mg PO TID 09/17/25 09/17/25 Unknown History empagliflozin 25 mg tablet 12.5 mg PO QAM 09/17/25 09/17/25 Unknown History (Jardiance) nicotine (polacrilex) 2 mg buccal 2 mg buccal Q4H PRN tobacco 09/17/25 09/17/25 Unknown History lozenge cessation. ondansetron 8 mg disintegrating 4 - 8 mg PO Q6H PRN Nausea And 09/17/25 09/17/25 Unknown History tablet Vomiting Allergies Allergy/AdvReac Type Severity Reaction Status Date / Time No Known Allergies Allergy Verified 08/12/25 16:51 PFSH Acute PFSH: Social History Smoking and tobacco/nicotine status: current some day tobacco/nicotine user (vape) Alcohol intake: never Vitals/I&O/Wt Last Vital Signs Temp 97.8 F 09/17/25 09:21 Pulse 88 09/17/25 14:02 Resp 16 09/17/25 11:53 BP 155/89 09/17/25 14:02 Pulse Ox 98 09/17/25 14:02 O2 Del Method Room Air 09/17/25 09:21 Weight last 48 hrs Weight 90.718 kg Physical Exam Narrative: General:AAOx 3 HEENT: EOMI CVS:RRR Lungs:CTA Abdomen:+flank tenderness MSK: No deformity, or edema Data 09/17/25 09:35 09/17/25 09:35 A&P Assessment and plan 1. Pyelonephritis: Admit to the ICU due to hypotension. Continue [place] antibiotics. IV fluid. As needed analgesics. Follow-up cultures. He at this time he does not need transfer for urology 2. Diabetes: FSBS sliding-scale insulin. Hold oral hypoglycemia 3. Hyperkalemia: IVF, recheck labs 4. CKD (chronic kidney disease): consider renal consult, monitor i/o 5. Hypertensive urgency: Plan: admit to icu continue nicardipine drip consider restarting oral medications soon PDMP PDMP Reviewed: Not Reviewed Attestations Medical Necessity Statement*: anticipate greater then 2 midnight stay Coding Level of Care Code Acute Code for Chg Fwd Diagnoses Pyelonephritis N12 Diabetes E11.9 Hyperkalemia E87.5 CKD (chronic kidney disease) N18.9 Hypertensive urgency I16.0
[2025-09-17] MEDS: HYDROcodone-acetaminophen 5-325 mg Tablet 1 TAB PO ×2 (18:19→21:33)
[2025-09-17] MEDS: heparin 5,000 unit/mL INJ 1 mL 5000 UNIT SUBCUT (18:23)
[2025-09-17] MEDS: nicardipine 20 MG/200 ML PREMIX 25 MG IV (18:36)
--- NOTE | 2025-09-17 20:00 | PC.NURSE ---
Assumed pt. care at 1900 report needs to be called plan of care complete in ED.
[2025-09-18] VITALS (7 sets, daily range): BP systolic 111–179; BP diastolic 74–110; PULSE 87–107; RESP 13–24; TEMP 36.8; O2SAT 95–98
[2025-09-18] MEDS: heparin 5,000 unit/mL INJ 1 mL 5000 UNIT SUBCUT (05:08)
[2025-09-18] MEDS: nicardipine 20 MG/200 ML PREMIX 25 MG IV (07:57)
[2025-09-18 09:10] LABS: Anion Gap 17.7 (5-19); Blood Urea Nitrogen 54 mg/dL (6-20); Calcium 9.1 mg/dL (8.5-10.5); Carbon Dioxide 19 mmol/L (22-29); Chloride 108 mmol/L (98-107); Glucose 129 mg/dL (65-115); Osmolality Calculated 306 mOsm/kg (285-295); Potassium 4.7 mmol/L (3.5-5.1); Sodium 140 mmol/L (136-145)
--- NOTE | 2025-09-18 09:12 | PC.NURSE ---
Cardene drip is turned off by provider.
--- NOTE | 2025-09-18 09:17 | P.DS_ITS ---
Discharge Providers Date of Admission: 09/17/25 18:19 Date of Discharge: September 18, 2025 Attending Provider at Admission: Ramón Cooley MD Attending Provider at Discharge: Nikhil Zepeda Primary Care Provider: Sil House MD Diagnoses at Discharge Discharge Diagnosis 1. Pyelonephritis: 2. Diabetes: 3. Hyperkalemia: 4. CKD (chronic kidney disease): 5. Hypertensive urgency: Reason for Visit Reason for Visit: lower back pain Brief History: Robert Martinez is a 45 year old male with pmh of dm,htn presents with complaints of flank and back pain. Patient reports that he has history of kidney stones. Reports that he also had cyst in his prostate. He does follow with urology at outside hospital. In the ER he had imaging done. Concern for pyelonephritis. He also reports having previous UTIs. He states that he think these are related to his previous prostate surgery. He does report feeling feverish although no documented fever. He denies any nausea or vomiting chest pain cough or diarrhea, in the ER patient was noted to have elevated blood pressure. He was placed on a drip Hospital Course Hospital Course She was treated with ceftriaxone with good response after the kidney stone passage noted on CT. Remained without sepsis, symptoms with improvement. Afebrile, without leukocytosis. No nausea or vomiting. Final urine cultures pending. Hypertension is treated with nicardipine drip. With mild hyperkalemia persisting in the hospital he has not continued on captopril, advised to avoid potassium supplements, reduce high potassium foods, and is started on amlodipine instead to help him continue managing his hypertension. Please reassess potassium and renal function. Physical Exam Const: COMMON NORMALS: patient oriented x3 and alert GENERAL APPEARANCE: cooperative ORIENTATION/CONSCIOUSNESS: Yes awake HENMT: COMMON NORMALS: oropharynx normal Neck/C-Spine: COMMON NORMALS: no JVD Resp: COMMON NORMALS: normal respiratory effort and clear to auscultation bilaterally AUSCULTATION: clear to auscultation bilaterally Cardio: COMMON NORMALS: no JVD, regular rhythm, S1 normal heart sound present, S2 normal heart sound present and No murmurs present (Cardio) RHYTHM: regular rhythm HEART SOUNDS: S1 normal heart sound present and S2 normal heart sound present GI: COMMON NORMALS: Normal to inspection, nondistended, normoactive bowel sounds present, Soft to palpation and non-tender PALPATION: Yes Soft to palpation Extremity: COMMON NORMALS: no joint enlargement and no pedal edema Neuro: COMMON NORMALS: patient oriented x3 and moves all extremities SENSORIUM/ORIENTATION: Yes alert Skin: COMMON NORMALS: no rashes or lesions noted GENERAL SKIN EXAM: no rashes or lesions noted Discharge Data Studies Completed and Pending Completed Studies During Hospitalization Category Date Time Status CT kidney stone [address] Stat Cat Scan 09/17/25 09:50 Completed Pending at discharge Category Date Time Status Basic Metabolic Panel AM LABS Lab 09/19/25 04:00 Ordered Basic Metabolic Panel AM LABS Lab 09/20/25 04:00 Ordered Complete Blood Count w/Auto DAILY Lab 09/18/25 10:00 Ordered Complete Blood Count w/Auto DAILY Lab 09/19/25 10:00 Ordered Complete Blood Count w/Auto DAILY Lab 09/20/25 10:00 Ordered Urine Culture Stat Lab 09/17/25 09:38 Received Radiology Impressions Abdomen/Pelvis CT 09/17/25 09:50 IMPRESSION: 1. Moderate perinephric stranding surrounding the LEFT kidney with mild LEFT hydroureteronephrosis. No distal obstructing ureteral calcification is identified. There may be a non-radiopaque stone or recently passed stone causing the obstruction. 2. Bilateral perinephric stranding is more pronounced than on 08/12/2025. Suggesting superimposed urinary tract infection. 3. No free fluid. 4. Normal appendix. Laboratory Results WBC 4.80 10^3/uL (3.29-11.43) 09/17/25 09:35 RBC 3.57 10^6/uL (3.85-5.65) L 09/17/25 09:35 Hgb 10.40 g/dL (11.27-16.99) L 09/17/25 09:35 Hct 29.6 % (37-53) L 09/17/25 09:35 MCV 82.9 fl (82-101) 09/17/25 09:35 MCH 29.1 pg (27-33) 09/17/25 09:35 MCHC 35.1 g/dL (30-55) 09/17/25 09:35 RDW 12.9 % (12.1-15.1) 09/17/25 09:35 Plt Count 140 10^3/cmm (157-399) L 09/17/25 09:35 MPV 10.8 fL (7.4-10.4) H 09/17/25 09:35 Neut % (Auto) 58.1 % 09/17/25 09:35 Lymph % (Auto) 31.3 % 09/17/25 09:35 [place] % (Auto) 6.5 % 09/17/25 09:35 Eos % (Auto) 3.3 % 09/17/25 09:35 Baso % (Auto) 0.4 % 09/17/25 09:35 Neut # (Auto) 2.79 10^3/uL (1.8-7.7) 09/17/25 09:35 Lymph # (Auto) 1.5 10^3/uL (0.8-4.8) 09/17/25 09:35 [place] # (Auto) 0.3 10^3/uL (0.2-0.9) 09/17/25 09:35 Eos # (Auto) 0.2 10^3/uL (0.0-0.8) 09/17/25 09:35 Baso # (Auto) 0.0 10^3/uL (0.0-0.1) 09/17/25 09:35 Nucleated RBC % (auto) 0 % 09/17/25 09:35 Nucleated RBCs # 0.0 /100WBC 09/17/25 09:35 Sodium 140 mmol/L (136-145) 09/18/25 08:25 Potassium 4.7 mmol/L (3.5-5.1) 09/18/25 08:25 Chloride 108 mmol/L (98-107) H 09/18/25 08:25 Carbon Dioxide 19 mmol/L (22-29) L 09/18/25 08:25 Anion Gap 17.7 (5-19) 09/18/25 08:25 BUN 54 mg/dL (6-20) H 09/18/25 08:25 Creatinine 4.5 mg/dL (0.7-1.2) H 09/18/25 08:25 GFR Calculation 14.3 mL/min (90-130) L 09/18/25 08:25 Glucose 129 mg/dL (65-115) H 09/18/25 08:25 POC Glucose 108 mg/dL (70-110) 09/18/25 06:06 Calculated Osmolality 306 mOsm/kg (285-295) H 09/18/25 08:25 Calcium 9.1 mg/dL (8.5-10.5) 09/18/25 08:25 Total Bilirubin 0.3 mg/dL (0.15-1.2) 09/17/25 09:35 AST 22 U/L (0-40) 09/17/25 09:35 ALT 38 U/L (0-41) 09/17/25 09:35 Alkaline Phosphatase 101 U/L (40-130) 09/17/25 09:35 Total Protein 7.5 g/dL (6.6-8.7) 09/17/25 09:35 Albumin 4.6 g/dL (3.5-5.2) 09/17/25 09:35 Globulin 2.9 g/dL (1.3-4.6) 09/17/25 09:35 Urine Color Yellow (Yellow) 09/17/25 09:38 Urine Appearance Clear (CLEAR) 09/17/25 09:38 Urine pH 5.5 (5-7) 09/17/25 09:38 Ur Specific [place] 1.010 (1.005-1.030) 09/17/25 09:38 Urine Protein Trace (Negative) A 09/17/25 09:38 Urine Glucose (UA) Negative (Normal) 09/17/25 09:38 Urine Ketones Negative (Negative) 09/17/25 09:38 Urine Blood 2+ (Negative) A 09/17/25 09:38 Urine Nitrate Negative (Negative) 09/17/25 09:38 Urine Bilirubin Negative (Negative) 09/17/25 09:38 Urine Urobilinogen 0.2 mg/dL (Negative) 09/17/25 09:38 Ur Leukocyte Esterase 1+ (Negative) A 09/17/25 09:38 Urine RBC 6-10 /hpf (0-2) 09/17/25 09:38 Urine WBC 11-20 /hpf (0-5) H 09/17/25 09:38 Ur Squamous Epith Cells 0-5 /hpf (0-5) 09/17/25 09:38 Amorphous Sediment Not Reportable 09/17/25 09:38 Urine Bacteria None seen /hpf (NONE) 09/17/25 09:38 Hyaline Casts 0-4 /lpf H 09/17/25 09:38 Vitals Last Vital Signs Temp 98.2 F 09/18/25 07:37 Pulse 92 09/18/25 07:37 Resp 15 09/18/25 07:37 BP 158/102 09/18/25 07:37 Pulse Ox 96 09/18/25 07:37 O2 Del Method Room Air 09/18/25 07:37 Discharge Plan Discharge Patient Disposition: Home Condition: Stable Prescriptions: New cefdinir 300 mg capsule 300 mg PO BID 7 Days Qty: 14 0RF Continued ferrous gluconate 324 mg (38 mg iron) tablet 324 mg PO BID pantoprazole 40 mg tablet,delayed release (DR/EC) 40 mg PO QAM insulin aspart U-100 100 unit/mL (3 mL) insulin pen 10 unit SUBCUT TID insulin glargine [Lantus Solostar U-100 Insulin] 100 unit/mL (3 mL) insulin pen 20 unit SUBCUT DAILY captopril 12.5 mg Tablet 12.5 mg PO TID nicotine (polacrilex) 2 mg Lozenge 2 mg BUCCAL Q4H PRN (Reason: tobacco cessation.) Jardiance 25 mg Tablet 12.5 mg PO QAM ondansetron 8 mg tablet,disintegrating 4 - 8 mg PO Q6H PRN (Reason: Nausea And Vomiting) rosuvastatin 10 mg Tablet 10 mg PO QPM hydrocodone-acetaminophen 5-325 mg tablet 1 tab PO Q6H PRN (Reason: pain) Qty: 15 0RF tizanidine 4 mg tablet 4 mg PO Q6H PRN (Reason: muscle spasticity) Qty: 20 0RF Rx Instructions: do not exceed 3 doses per 24 hrs tramadol 50 mg tablet 50 mg PO Q8H PRN (Reason: pain) Qty: 20 0RF Referrals: Sil House MD [Primary Care Provider, Family Practice] - 1 week Discharge Diet: As Directed Patient Instructions: Amlodipine (By mouth), Kidney Stones (GEN), Potassium Content of Foods List (GEN), Kidney Infection (GEN), Hyperkalemia (GEN), Chronic Hypertension (GEN), Opioid Safety, Patient Portal & [facility] Instructions Activity Restrictions/Additional Instructions: Follow-up with your primary doctor for reassessment after pyelonephritis after passed kidney stone. Final urine cultures are pending. Complete antibiotic course. As discussed regarding potential adverse effects, which are for any diarrhea. Seek medical attention in case of any worsening or new concerning symptoms. Please discontinue captopril due to finding of elevated potassium, avoid potassium supplementation and reduce high potassium containing foods. Have a primary doctor and kidney doctor recheck your potassium level and kidney function. To help you control blood pressures instead of captopril you are started on a mlodipine which should not raise your potassium. Discharge Attestations Time Spent in Discharge Care*: greater than 30 min Quality Metrics Clinical Quality Measures [ No reported AMI, CVA or VTE this stay] Coding Level of Care Code 73796 Total time (in minutes) for Discharge: 50 Diagnoses Pyelonephritis N12 Diabetes E11.9 Hyperkalemia E87.5 CKD (chronic kidney disease) N18.9 Hypertensive urgency I16.0
[2025-09-18 10:57] LABS: Hematocrit 29.7 % (37-53); Hemoglobin 10.00 g/dL (11.27-16.99); Mean Corpuscular HGB Conc 33.7 g/dL (30-55); Mean Corpuscular Hemoglobin 28.4 pg (27-33); Mean Corpuscular Volume 84.4 fl (82-101); Nucleated Red Blood Cells % 0 %; Platelet Count 140 10^3/cmm (157-399); Red Blood Count 3.52 10^6/uL (3.85-5.65); White Blood Count 6.24 10^3/uL (3.29-11.43)
--- NOTE | 2025-09-18 11:16 | PC.NURSE ---
Provider updated on his current blood pressures, provider okay'd the discharge.
== END 2025-09-18 11:45 | disposition home or self-care (01) | DRG 683 ==
LOC: ER 09:42 → CSU 18:19
PROVIDERS: Internal Medicine; Admitting Provider Student in an Organized Health Care Education/Training Program; Emergency Provider Family Medicine; PCP Family Medicine; Visit Provider Internal Medicine
DX: I12.9 Hypertensive chronic kidney disease with stage 1 through stage 4 chronic kidney disease, or unspecified chronic kidney disease (principal); N12 Tubulo-interstitial nephritis, not specified as acute or chronic; E11.22 Type 2 diabetes mellitus with diabetic chronic kidney disease; N18.9 Chronic kidney disease, unspecified; E87.5 Hyperkalemia; I16.0 Hypertensive urgency; F17.290 Nicotine dependence, other tobacco product, uncomplicated; Z79.4 Long term (current) use of insulin; Z79.891 Long term (current) use of opiate analgesic; Z87.442 Personal history of urinary calculi; Z87.440 Personal history of urinary (tract) infections
CPT/HCPCS: 36415; 36416; 74176; 80048; 80053; 81001; 82962; 85025; 87086; 93005; 96365; 96366; 96372; 96375; 96376; 99291; J0360; J0696; J1644; J2270; J2404; J2405; J3490; J7030; J9999